=== PATIENT | female | born 1940 | race Caucasian/White ===

== ENCOUNTER 2020-04-08 08:50 | Outpatient (REF) | payer OTHER, SELFPAY ==
[2020-04-08 09:51] LABS: MANUAL DIFF FLAG NO
[2020-04-08 09:54] LABS: Basophils Percent Auto 0.4 % (0-2); Eosinophils Absolute Auto 0.2 X10*3/uL (0.0-0.4); Eosinophils Percent Auto 3.7 % (0-4); Hematocrit 39.6 % (37-47); Hemoglobin 13.1 g/dl (12.0-16.0); Imm Gran Abs Auto 0.01 X10*3/uL (0.00-0.03); Imm Gran Pct Auto 0.2 % (0.0-0.4); Lymphocytes Absolute Auto 1.4 X10*3/uL (1.2-4.9); Mean Corpuscular HGB Conc 33.1 g/dl (31.0-35.0); Mean Corpuscular Hemoglobin 30.1 pg (27.0-33.0); Mean Platelet Volume 10.1 fL (9.4-12.3); Monocytes Absolute Auto 0.4 X10*3/uL (0.1-1.2); Monocytes Percent Auto 8.1 % (2-11); Neutrophils Absolute Auto 3.1 X10*3/uL (2.0-8.3); Neutrophils Percent Auto 60.6 % (45-73); Platelet Count 272 X10*3/uL (160-400); Red Blood Count 4.35 X10*6/uL (4.20-5.50); White Blood Count 5.2 X10*3/uL (4.8-10.8)
[2020-04-08 10:19] LABS: Alanine Aminotransferase 22 U/L (0-31); Alkaline Phosphatase 95 U/L (39-117); Anion Gap 10 (12-20); Aspartate Amino Transferase 21 U/L (5-31); Bilirubin Total 0.3 mg/dL (0.0-1.0); Blood Urea Nitrogen 15 mg/dL (9-16); Calcium 8.8 mg/dL (8.4-10.2); Carbon Dioxide 27 mmol/L (22-29); Chloride 107 mmol/L (96-108); Cholesterol 181 mg/dL; Estimated Glomerular Filt Rate > 60; Glucose Fasting 109 mg/dL (60-99); HDL Cholesterol 47 mg/dL; LDL Cholesterol Calculated 119 mg/dl; Potassium 4.6 mmol/l (3.3-5.1); Sodium 139 mmol/L (135-145); Total Protein 6.2 g/dL (6.5-8.0); Triglycerides 78 mg/dL
[2020-04-08 10:20] LABS: Creatinine Urine 109.04 mg/dL; Microalbum/Creatinine Ratio Ur 12.8 ug/mg cr
[2020-04-08 10:28] LABS: Estimated Average Glucose 111 mg/dL; Hemoglobin A1c % 5.5 %
[2020-04-08 10:38] LABS: Glucose Urine UA NEG (NEG); Leukocyte Esterase Urine NEG (NEG); Nitrite Urine NEG (NEG); Urine Blood TRACE (NEG); Urine Ketones NEG (NEG); Urine Protein NEG (NEG-TRACE)
[2020-04-08 10:43] LABS: Vitamin D 25-OH Total 28.9 ng/mL (>30)
[2020-04-08 10:45] LABS: Appearance Urine CLEAR; Color Urine YELLOW
[2020-04-08 10:58] LABS: Reflex LDLD? No
[2020-04-08 11:11] LABS: RBC Urine 0 /HPF (0); WBC Urine 0 /HPF (0-4)
[2020-04-08 11:12] LABS: Squamous Epithelial Cell Urine TRACE /LPF
[2020-04-08 11:13] LABS: Amorphous Sediment Urine TRACE /LPF
== END 2020-04-08 08:51 | disposition home or self-care (01) ==
LOC: HO.LAB 08:50
PROVIDERS: PCP Internal Medicine; Visit Provider Internal Medicine
DX: Z00.00 Encounter for general adult medical examination without abnormal findings (principal); I10 Essential (primary) hypertension; R73.03 Prediabetes; E78.00 Pure hypercholesterolemia, unspecified; G62.9 Polyneuropathy, unspecified; Z78.0 Asymptomatic menopausal state; Z86.69 Personal history of other diseases of the nervous system and sense organs
CPT/HCPCS: 36415; 80053; 80061; 81001; 81003; 82043; 82306; 83036; 85025

== ENCOUNTER 2020-05-20 13:15 | Outpatient (REF) | payer SELFPAY | END 2020-05-20 13:16 | disposition home or self-care (01) | LOC: HO.HAP 13:15 | PROVIDERS: PCP Internal Medicine; Referring Provider Internal Medicine; Visit Provider Internal Medicine | DX: Z13.89 Encounter for screening for other disorder (principal) | CPT/HCPCS: 92700 ==

== ENCOUNTER 2020-07-30 11:26 | Outpatient (REF) | payer OTHER, SELFPAY ==
--- NOTE | 2020-07-30 | MM_ITS ---
EXAMINATION: MM SCREENING DIGITAL BREAST TOMOSYNTHESIS, BILATERAL CLINICAL INFORMATION: Screening. Asymptomatic. The lifetime risk of breast cancer based on the Tyrer-Cuzick Model is 1%. COMPARISON: Mammography: 07/25/2019, 07/12/2018, 06/18/2017 TECHNIQUE: Digital breast tomosynthesis is performed in both the craniocaudal and mediolateral oblique views along with computer-aided detection (CAD). Synthesized 2D images are generated from the tomosynthesis. Additional right MLO view is provided. FINDINGS: There are scattered areas of fibroglandular density (ACR BI-RADS breast composition Category b). There are no significant masses, abnormal calcifications, or other abnormalities. There is fibronodular parenchymal pattern similar to prior studies. No developing density. No interval dominant nodularity. Again, there are scattered bilateral calcifications, both punctate and coarse, similar in number and distribution. There are 2 biopsy clip markers left breast and a biopsy clip marker right breast upper outer quadrant. MM/MM tomosynthesis screening BI IMPRESSION: No significant changes from prior exams. ASSESSMENT: BI-RADS 2: Benign RECOMMENDATION: Routine annual mammography screening. This patient's information was entered into a reminder system with a target due date for their next mammogram.
== END 2020-07-30 11:27 | disposition home or self-care (01) ==
LOC: HO.MAMMO 11:26
PROVIDERS: Visit Provider Internal Medicine
DX: Z12.31 Encounter for screening mammogram for malignant neoplasm of breast (principal)
CPT/HCPCS: 77063; 77067

== ENCOUNTER 2020-10-04 10:23 | Outpatient (REF) | payer OTHER, SELFPAY ==
[2020-10-04 11:17] LABS: Estimated Average Glucose 108 mg/dL; Hemoglobin A1c % 5.4 %
[2020-10-04 12:14] LABS: Alanine Aminotransferase 30 U/L (0-31); Alkaline Phosphatase 105 U/L (39-117); Aspartate Amino Transferase 21 U/L (5-31); Bilirubin Direct < 0.2 mg/dL (0.0-0.5); Bilirubin Total < 0.2 mg/dL (0.0-1.0); Cholesterol 190 mg/dL; Glucose Fasting 101 mg/dL (60-99); HDL Cholesterol 49 mg/dL; LDL Cholesterol Calculated 121 mg/dl; Total Protein 6.4 g/dL (6.5-8.0); Triglycerides 102 mg/dL
[2020-10-04 12:52] LABS: Reflex LDLD? No
== END 2020-10-04 10:24 | disposition home or self-care (01) ==
LOC: HO.LNP 10:23
PROVIDERS: Visit Provider Internal Medicine
DX: E78.00 Pure hypercholesterolemia, unspecified (principal); R73.09 Other abnormal glucose
CPT/HCPCS: 80061; 80076; 82947; 83036

== ENCOUNTER 2021-04-21 10:21 | Outpatient (REF) | payer OTHER, SELFPAY ==
[2021-04-21 10:26] LABS: MANUAL DIFF FLAG NO
[2021-04-21 11:07] LABS: Basophils Percent Auto 0.5 % (0-2); Eosinophils Absolute Auto 0.1 X10*3/uL (0.0-0.4); Eosinophils Percent Auto 2.1 % (0-4); Hematocrit 39.2 % (37-47); Imm Gran Abs Auto 0.02 X10*3/uL (0.00-0.03); Imm Gran Pct Auto 0.3 % (0.0-0.4); Lymphocytes Percent Auto 29.9 % (20-40); Mean Corpuscular HGB Conc 33.2 g/dl (31.0-35.0); Mean Corpuscular Hemoglobin 29.3 pg (27.0-33.0); Mean Corpuscular Volume 88.3 fL (80-98); Mean Platelet Volume 9.9 fL (9.4-12.3); Monocytes Absolute Auto 0.6 X10*3/uL (0.1-1.2); Monocytes Percent Auto 8.9 % (2-11); Neutrophils Absolute Auto 3.8 X10*3/uL (2.0-8.3); Neutrophils Percent Auto 58.3 % (45-73); Platelet Count 364 X10*3/uL (160-400); Red Blood Count 4.44 X10*6/uL (4.20-5.50); Red Cell Distribution Width 13.1 % (11.0-16.0); White Blood Count 6.6 X10*3/uL (4.8-10.8)
[2021-04-21 11:26] LABS: Appearance Urine HAZY; Color Urine YELLOW; Glucose Urine UA NEG (NEG); Leukocyte Esterase Urine NEG (NEG); Nitrite Urine NEG (NEG); PH 6.5 (5.0-8.0); Urine Blood 1+ (NEG); Urine Ketones NEG (NEG); Urine Protein TRACE MG/DL (NEG-TRACE)
[2021-04-21 11:32] LABS: Estimated Average Glucose 111 mg/dL; Hemoglobin A1c % 5.5 %
[2021-04-21 11:42] LABS: Alanine Aminotransferase 20 U/L (0-31); Alkaline Phosphatase 93 U/L (39-117); Anion Gap 10 (12-20); Aspartate Amino Transferase 20 U/L (5-31); Bilirubin Total 0.3 mg/dL (0.0-1.0); Blood Urea Nitrogen 13 mg/dL (9-16); Calcium 9.3 mg/dL (8.4-10.2); Carbon Dioxide 25 mmol/L (22-29); Chloride 106 mmol/L (96-108); Cholesterol 202 mg/dL; Estimated Glomerular Filt Rate > 60; Glucose Fasting 105 mg/dL (60-99); HDL Cholesterol 51 mg/dL; LDL Cholesterol Calculated 129 mg/dl; Potassium 4.4 mmol/L (3.3-5.1); Sodium 137 mmol/L (135-145); Total Protein 6.7 g/dL (6.5-8.0); Triglycerides 113 mg/dL
[2021-04-21 11:59] LABS: Creatinine Urine 183.95 mg/dL; Microalbum/Creatinine Ratio Ur 37.5 ug/mg cr
[2021-04-21 12:32] LABS: Reflex LDLD? No
[2021-04-21 13:12] LABS: Mucus Urine 2+ /LPF; RBC Urine 0-2 /HPF (0); Renal Epithelial Cells Urine 2+ /LPF; Squamous Epithelial Cell Urine 1+ /LPF
[2021-04-21 13:13] LABS: Hyaline Casts Urine 0-2 /LPF; Oval Fat Bodies Urine NOTED
== END 2021-04-21 10:22 | disposition home or self-care (01) ==
LOC: HO.LNP 10:21
PROVIDERS: Visit Provider Internal Medicine
DX: Z00.00 Encounter for general adult medical examination without abnormal findings (principal); I10 Essential (primary) hypertension; E11.43 Type 2 diabetes mellitus with diabetic autonomic (poly)neuropathy; E78.00 Pure hypercholesterolemia, unspecified
CPT/HCPCS: 80053; 80061; 81001; 81003; 82043; 83036; 85025

== ENCOUNTER 2021-05-23 10:10 | Outpatient (REF) | payer OTHER, SELFPAY ==
[2021-05-23 10:54] LABS: Appearance Urine CLEAR; Color Urine YELLOW; Glucose Urine UA NEG (NEG); Leukocyte Esterase Urine NEG (NEG); Nitrite Urine NEG (NEG); Urine Blood TRACE (NEG); Urine Ketones NEG (NEG); Urine Protein NEG (NEG-TRACE)
[2021-05-23 11:11] LABS: Squamous Epithelial Cell Urine 1+ /LPF
[2021-05-23 11:12] LABS: RBC Urine 0-2 /HPF (0); WBC Urine 0 /HPF (0-4)
== END 2021-05-23 10:11 | disposition home or self-care (01) ==
LOC: HO.LNP 10:10
PROVIDERS: Visit Provider Internal Medicine
DX: N02.9 Recurrent and persistent hematuria with unspecified morphologic changes (principal)
CPT/HCPCS: 81001

== ENCOUNTER 2021-08-11 14:21 | Outpatient (REF) | payer OTHER, SELFPAY ==
--- NOTE | ~2021-08-11 | MM_ITS ---
EXAMINATION: MM SCREENING DIGITAL BREAST TOMOSYNTHESIS, BILATERAL CLINICAL INFORMATION: Screening. Asymptomatic. The lifetime risk of breast cancer based on the Tyrer-Cuzick Model is under 3%. COMPARISON: Mammography: 07/30/2020, 07/25/2019, 07/12/2018 TECHNIQUE: Digital breast tomosynthesis is performed in both the craniocaudal and mediolateral oblique views along with computer-aided detection (CAD). Synthesized 2D images are generated from the tomosynthesis. FINDINGS: There are scattered areas of fibroglandular density (ACR BI-RADS breast composition Category b). Breast tissue composition borders on heterogeneously dense. There are scattered stable parenchymal asymmetries and fibronodular changes similar to prior exams. There is no developing density or interval mass or architectural abnormality. Again, scattered bilateral calcifications are present similar in number and distribution. There is a biopsy clip marker again seen mid 12:00 left breast and mid upper outer right breast. The axilla are unremarkable. No significant changes. MM/MM tomosynthesis screening BI IMPRESSION: No mammographic evidence of malignancy. ASSESSMENT: BI-RADS 2: Benign RECOMMENDATION: Routine annual mammography screening. This patient's information was entered into a reminder system with a target due date for their next mammogram.
== END 2021-08-11 14:22 | disposition home or self-care (01) ==
LOC: HO.MAMMO 14:21
PROVIDERS: PCP Internal Medicine; Visit Provider Internal Medicine
DX: Z12.31 Encounter for screening mammogram for malignant neoplasm of breast (principal)
CPT/HCPCS: 77063; 77067

== ENCOUNTER 2021-10-24 10:33 | Outpatient (REF) | payer OTHER, SELFPAY ==
[2021-10-24 11:15] LABS: Alanine Aminotransferase 21 U/L (0-31); Albumin Level 3.9 g/dL (3.5-5.0); Alkaline Phosphatase 104 U/L (39-117); Aspartate Amino Transferase 21 U/L (5-31); Bilirubin Direct < 0.2 mg/dL (0.0-0.5); Bilirubin Total 0.5 mg/dL (0.0-1.0); Cholesterol 192 mg/dL; Glucose Fasting 102 mg/dL (60-99); HDL Cholesterol 53 mg/dL; LDL Cholesterol Calculated 119 mg/dl; Total Protein 6.3 g/dL (6.5-8.0); Triglycerides 101 mg/dL
[2021-10-24 11:21] LABS: Estimated Average Glucose 111 mg/dL; Hemoglobin A1c % 5.5 %
== END 2021-10-24 10:34 | disposition home or self-care (01) ==
LOC: HO.LNP 10:33
PROVIDERS: Visit Provider Internal Medicine
DX: E78.00 Pure hypercholesterolemia, unspecified (principal); R73.03 Prediabetes
CPT/HCPCS: 80061; 80076; 82947; 83036

== ENCOUNTER 2022-04-23 10:50 | Outpatient (REF) | payer OTHER, SELFPAY ==
[2022-04-23 10:54] LABS: MANUAL DIFF FLAG NO
[2022-04-23 11:53] LABS: Hematocrit 38.7 % (37.0-47.0); Hemoglobin 12.8 g/dl (12.0-16.0); Mean Corpuscular HGB Conc 33.1 g/dl (31.0-35.0); Mean Corpuscular Hemoglobin 29.3 pg (27.0-33.0); Mean Corpuscular Volume 88.6 fL (80.0-98.0); Platelet Count 341 X10*3/uL (160-400); Red Blood Count 4.37 X10*6/uL (4.20-5.50); Red Cell Distribution Width 13.2 % (11.0-16.0); White Blood Count 5.4 X10*3/uL (4.8-10.8)
[2022-04-23 11:54] LABS: Basophils Percent Auto 0.6 % (0-2); Eosinophils Absolute Auto 0.1 X10*3/uL (0.0-0.4); Eosinophils Percent Auto 2.4 % (0-4); Imm Gran Abs Auto 0.03 X10*3/uL (0.00-0.03); Imm Gran Pct Auto 0.6 % (0.0-0.4); Lymphocytes Absolute Auto 1.8 X10*3/uL (1.2-4.9); Lymphocytes Percent Auto 32.9 % (20-40); Monocytes Absolute Auto 0.4 X10*3/uL (0.1-1.2); Neutrophils Percent Auto 55.5 % (45-73)
[2022-04-23 12:06] LABS: Alanine Aminotransferase 23 U/L (0-31); Alkaline Phosphatase 97 U/L (39-117); Anion Gap 13 (12-20); Aspartate Amino Transferase 20 U/L (5-31); Bilirubin Total 0.4 mg/dL (0.0-1.0); Blood Urea Nitrogen 14 mg/dL (9-16); Carbon Dioxide 27 mmol/L (22-29); Chloride 101 mmol/L (96-108); Cholesterol 185 mg/dL; Estimated Glomerular Filt Rate > 60; Glucose Fasting 101 mg/dL (60-99); HDL Cholesterol 45 mg/dL; LDL Cholesterol Calculated 121 mg/dl; Potassium 4.1 mmol/L (3.3-5.1); Sodium 137 mmol/L (135-145); Total Protein 6.4 g/dL (6.5-8.0); Triglycerides 97 mg/dL
[2022-04-23 12:20] LABS: Creatinine Urine 67.11 mg/dL; Microalbum/Creatinine Ratio Ur 13.4 ug/mg cr
[2022-04-23 12:24] LABS: Estimated Average Glucose 120 mg/dL; Hemoglobin A1c % 5.8 %
[2022-04-23 13:20] LABS: Appearance Urine Cloudy; Color Urine Yellow; Glucose Urine UA Negative (Negative); Leukocyte Esterase Urine Large (3+) (Negative); Nitrite Urine Negative (Negative); PH 6.5 (5.0-9.0); UMIC TRIGGER UA YES; Urine Blood Small (1+) (Negative); Urine Ketones Negative (Negative); Urine Protein Negative (Neg-Trace)
[2022-04-23 13:44] LABS: Bacteria Urine None Seen (None Seen); Hyaline Casts Urine 0-2 /LPF (0-2); WBC Urine >50 /HPF (0-5)
== END 2022-04-23 10:51 | disposition home or self-care (01) ==
LOC: HO.LNP 10:50
PROVIDERS: Visit Provider Internal Medicine
DX: Z00.00 Encounter for general adult medical examination without abnormal findings (principal); I10 Essential (primary) hypertension; R73.09 Other abnormal glucose; E78.00 Pure hypercholesterolemia, unspecified
CPT/HCPCS: 80053; 80061; 81001; 82043; 83036; 85025

== ENCOUNTER 2022-05-21 10:43 | Outpatient (REF) | payer OTHER, SELFPAY ==
[2022-05-21 11:13] LABS: Appearance Urine Clear; Color Urine Yellow; Glucose Urine UA Negative (Negative); Leukocyte Esterase Urine Trace (Negative); Nitrite Urine Negative (Negative); PH 6.5 (5.0-9.0); UMIC TRIGGER UA YES; Urine Blood Trace (Negative); Urine Ketones Negative (Negative); Urine Protein Negative (Neg-Trace)
[2022-05-21 11:19] LABS: Bacteria Urine None Seen (None Seen); Hyaline Casts Urine 0-2 /LPF (0-2); RBC Urine 0-2 /HPF (0-2); WBC Urine 0-5 /HPF (0-5)
== END 2022-05-21 10:44 | disposition home or self-care (01) ==
LOC: HO.LNP 10:43
PROVIDERS: Visit Provider Internal Medicine
DX: R31.9 Hematuria, unspecified (principal)
CPT/HCPCS: 81001

== ENCOUNTER 2022-08-26 11:18 | Outpatient (REF) | payer OTHER, SELFPAY ==
--- NOTE | ~2022-08-26 | MM_ITS ---
EXAMINATION: MM SCREENING DIGITAL BREAST TOMOSYNTHESIS, BILATERAL CLINICAL INFORMATION: Screening. Asymptomatic. Family history breast cancer, mother. COMPARISON: Mammography: 08/11/2021, 07/30/2020, 07/25/2019 TECHNIQUE: Digital breast tomosynthesis is performed in both the craniocaudal and mediolateral oblique views along with computer-aided detection (CAD). Synthesized 2D images are generated from the tomosynthesis. Additional right CC view is provided. FINDINGS: There are scattered areas of fibroglandular density (ACR BI-RADS breast composition Category b). Breast tissue composition borders on heterogeneously dense. There is a stable fibronodular parenchymal pattern without developing density or architectural abnormality. Again, there are scattered bilateral round and benign round calcifications. There are no significant masses, abnormal calcifications, or other abnormalities. There is a biopsy clip marker central anterior left breast and mid upper outer quadrant right breast. The axilla and skin contours are unremarkable. MM/MM tomosynthesis screening BI IMPRESSION: No mammographic evidence of malignancy. ASSESSMENT: BI-RADS 2: Benign RECOMMENDATION: Routine annual mammography screening. This patient's information was entered into a reminder system with a target due date for their next mammogram.
== END 2022-08-26 11:19 | disposition home or self-care (01) ==
LOC: HO.MAMMO 11:18
PROVIDERS: PCP Internal Medicine; Visit Provider Internal Medicine
DX: Z12.31 Encounter for screening mammogram for malignant neoplasm of breast (principal)
CPT/HCPCS: 77063; 77067

== ENCOUNTER 2022-10-26 10:44 | Outpatient (REF) | payer OTHER, SELFPAY ==
[2022-10-26 11:03] LABS: Alanine Aminotransferase 22 U/L (0-31); Alkaline Phosphatase 112 U/L (39-117); Aspartate Amino Transferase 19 U/L (5-31); Bilirubin Direct 0.1 mg/dL (0.0-0.5); Bilirubin Total 0.4 mg/dL (0.0-1.0); Cholesterol 185 mg/dL; Glucose Fasting 107 mg/dL (60-99); HDL Cholesterol 52 mg/dL; LDL Cholesterol Calculated 118 mg/dl; Total Protein 6.1 g/dL (6.5-8.0); Triglycerides 79 mg/dL
[2022-10-26 11:20] LABS: Estimated Average Glucose 111 mg/dL; Hemoglobin A1c % 5.5 %
[2022-10-26 13:03] LABS: Reflex LDLD? No
== END 2022-10-26 10:45 | disposition home or self-care (01) ==
LOC: HO.LNP 10:44
PROVIDERS: Visit Provider Internal Medicine
DX: R73.03 Prediabetes (principal); E78.00 Pure hypercholesterolemia, unspecified
CPT/HCPCS: 80061; 80076; 82947; 83036

== ENCOUNTER → 2022-11-24 08:50 | Outpatient (REF) | payer OTHER, SELFPAY ==
--- NOTE | 2022-11-24 08:56 | CA_ITS ---
Acquisition Time: 2022-11-24 09:07:38 Total Exercise Time: 00:03:36 Test Indications: SOB Medications: SEE H Protocol: MICK Max HR: 114 BPM 83% of Pred: 136 BPM Max BP: 172/072 mmHG Max Work Load: 4.6 METS Exercise stress test exercise 3 min 36 sec of Mick protocol stage 1 achieiving 83% MPHR with request to stop due to fatigue, with moderate SOB, no chest discomfort, without arrythmia, with normotensive response to exercise, without EKG changes at achieved workload. Test reviewed with Dr. Bob. Referred By: Vito Joel Overread By: HEIDI SOTELO
== END ==
LOC: HO.CARD 08:50
PROVIDERS: Visit Provider Internal Medicine
DX: R06.02 Shortness of breath (principal)
CPT/HCPCS: 93017

== ENCOUNTER 2023-07-02 10:23 | Outpatient (REF) | payer OTHER, SELFPAY ==
[2023-07-02 10:26] LABS: MANUAL DIFF FLAG NO
[2023-07-02 10:56] LABS: Appearance Urine Clear; Color Urine Yellow; Glucose Urine UA Negative (Negative); Leukocyte Esterase Urine Trace (Negative); Nitrite Urine Negative (Negative); PH 6.5 (5.0-9.0); Specific Gravity - Urine 1.015 (1.005-1.025); UMIC TRIGGER UACC YES; Urine Blood Trace (Negative); Urine Ketones Negative (Negative); Urine Protein Negative (Neg-Trace)
[2023-07-02 11:00] LABS: Bacteria Urine Trace (None Seen); Hyaline Casts Urine 0-2 /LPF (0-2); Squamous Epithelial Cell Urine 0-2 /HPF (0-2); WBC Urine 0-5 /HPF (0-5)
[2023-07-02 11:08] LABS: Basophils Percent Auto 0.6 % (0-2); Eosinophils Absolute Auto 0.2 X10*3/uL (0.0-0.4); Eosinophils Percent Auto 2.5 % (0-4); Hematocrit 39.2 % (37.0-47.0); Hemoglobin 13.1 g/dl (12.0-16.0); Imm Gran Abs Auto 0.03 X10*3/uL (0.00-0.03); Imm Gran Pct Auto 0.5 % (0.0-0.4); Lymphocytes Absolute Auto 1.6 X10*3/uL (1.2-4.9); Lymphocytes Percent Auto 24.7 % (20-40); Mean Corpuscular HGB Conc 33.4 g/dl (31.0-35.0); Mean Corpuscular Hemoglobin 29.2 pg (27.0-33.0); Mean Corpuscular Volume 87.3 fL (80.0-98.0); Monocytes Absolute Auto 0.6 X10*3/uL (0.1-1.2); Monocytes Percent Auto 9.5 % (2-11); Neutrophils Absolute Auto 4.1 x10*3/uL (2.0-8.3); Neutrophils Percent Auto 62.2 % (45-73); Platelet Count 304 X10*3/uL (160-400); Red Blood Count 4.49 X10*6/uL (4.20-5.50); Red Cell Distribution Width 13.2 % (11.0-16.0); White Blood Count 6.5 X10*3/uL (4.8-10.8)
[2023-07-02 12:09] LABS: Microalbum/Creatinine Ratio Ur 14.3 ug/mg cr (<30)
[2023-07-02 12:17] LABS: Alanine Aminotransferase 19 U/L (0-31); Albumin Level 3.8 g/dL (3.5-5.0); Alkaline Phosphatase 99 U/L (39-117); Anion Gap 13 (12-20); Aspartate Amino Transferase 20 U/L (5-31); Bilirubin Total 0.4 mg/dL (0.0-1.0); Blood Urea Nitrogen 11 mg/dL (9-16); Carbon Dioxide 24 mmol/L (22-29); Chloride 101 mmol/L (96-108); Cholesterol 177 mg/dL (<200); Estimated Glomerular Filt Rate > 60; Glucose Fasting 83 mg/dL (60-99); HDL Cholesterol 55 mg/dL (>40); LDL Cholesterol Calculated 107 mg/dL (<100); Potassium 3.7 mmol/L (3.3-5.1); Sodium 134 mmol/L (135-145); Total Protein 6.3 g/dL (6.5-8.0); Triglycerides 78 mg/dL (<150)
== END 2023-07-02 10:24 | disposition home or self-care (01) ==
LOC: HO.LNP 10:23
PROVIDERS: Visit Provider Internal Medicine
DX: Z00.00 Encounter for general adult medical examination without abnormal findings (principal); I10 Essential (primary) hypertension; E78.00 Pure hypercholesterolemia, unspecified; R73.03 Prediabetes
CPT/HCPCS: 80053; 80061; 81001; 82043; 82570; 85025

== ENCOUNTER 2023-08-18 10:00 | Outpatient (REF) | payer OTHER, SELFPAY ==
[2023-08-18 16:21] LABS: Urine Cytology See Pathology rpt
== END 2023-08-18 10:01 | disposition home or self-care (01) ==
LOC: HO.LAB 10:00
PROVIDERS: PCP Internal Medicine; Visit Provider Nurse Practitioner Family
DX: R31.29 Other microscopic hematuria (principal); N39.0 Urinary tract infection, site not specified
CPT/HCPCS: 81003; 87086; 87088; 87186; 88112

== ENCOUNTER 2023-08-18 10:00 | Outpatient (AMB) | payer OTHER, MEDICAID, SELFPAY ==
--- NOTE | 2023-08-18 10:15 | MHC.OFFVIS ---
Intake Intake Visit Reasons: microscopic hematuria Intake Note: New Patient presents for initial follow up Micro hematuria Urology Medications: none Blood Thinner: aspirin Smoker: No Patient stated she has not seen visible blood in the urine, and has no pain when she urinates Vegetable Grower Required: No Accompanied by: Self / Same As Patient Allergies No Known Allergies Allergy (Verified 08/18/23 13:29) Medication List - Last Reconciled 08/18/23 by MARQUIS Juares aspirin 81 mg PO DAILY atorvastatin 80 mg PO DAILY carbamazepine 200 mg PO BID lisinopril-hydrochlorothiazide 10-12.5 mg 1 tab PO DAILY HPI HPI Comments History of Present Illness Details See is a very pleasant 83-year-old female patient of Dr. Joel. She has a past medical history of autonomic neuropathy due to diabetes, seizure disorder, intermittent spinal claudication, neuropathy, hypercholesteremia, hypertension, and endometrial cancer. She presents to the office today as a new patient for microscopic hematuria. In discussion with the patient today she reports to be doing and feeling well. She reports having followed up with her PCP at which time urinalysis showed microscopic hematuria on 2 occasions and recommendations were made for Urology follow-up for further assessment evaluation. In discussion with the patient today she denies any bothersome urinary issues or concerns. She denies urinary urgency, urinary frequency, incontinence, nocturia, hematuria, dysuria, foul smelling urine, changes to urinary stream, flank pain, fever, and or chills. She is happy with her current voiding parameters. When asked she denies any previous nicotine dependence and or workplace chemical exposure. In office urinalysis with 3+ leukocytes and microscopic hematuria noted. Again, she denies any UTI like symptoms or urinary issues at this time. Discussed at length potential causes of microscopic hematuria. Discussed further workup with imaging, urine cytology, and in office cystoscopy. She otherwise denies any other issues or concerns at this time. [facility] Medical History Autonomic neuropathy due to type 2 diabetes mellitus History of seizure disorder Intermittent spinal claudication Neuropathy Localization-related (focal) (partial) symptomatic epilepsy and epileptic syndromes with simple partial seizures, not intractable, without status epilepticus Hypercholesteremia Essential hypertension Endometrial cancer Surgical History History of hysterectomy with bilateral oophorectomy Review of Systems Const Reports no additional complaints Eyes Reports no additional complaints ENT Reports no additional complaints Card Reports as per [facility] Resp Reports no additional complaints GI Reports no additional complaints Reports as per [facility] Musc Reports as per [facility] Neuro Reports as per HPI Psych Reports no additional complaints Endo Reports as per HPI Matt/Lymph Reports no additional complaints Aller/Immun Reports no additional complaints Physical Exam Const General: cooperative, comfortable, no acute distress, well developed, alert and awake Orientation/consciousness: patient oriented x3 Limitations: no limitations HEENT Head: Yes normal to inspection, Yes normocephalic and Yes atraumatic Ears: hearing grossly normal bilaterally Eyes General: appearance normal, both eyes and all related structures Neck Neck: Yes normal visual inspection and Yes trachea midline Chest Chest palpation & inspection: normal inspection of the chest Resp Effort & Inspection: normal respiratory effort and able to speak in complete sentences Cardio Rate: regular rate GI Inspection: Yes normal to inspection General: Yes no CVA tenderness Back/Spine/Pelvis Back: no CVA tenderness Skin General skin exam: no rashes or lesions noted Neuro General: patient oriented x3 Extrem General: Yes normal to inspection Psych Appearance: grossly normal and well kempt Mental Status: mental status grossly normal Speech and movement: Normal speech and movement present and Clear speech present Affect: normal affect Attitude: cooperative Thought process: Normal thought process present Thought content: Normal thought content present Insight: Fair insight present (Psych) Judgement: Fair judgement present (Psych) Results AMB Urinalysis, Automated UA Leukoctes 500 Gabriel/uL Last Edit by Irina Hoang CMA on 08/18/23 10:23 UA Nitrite Negative Last Edit by Irina Hoang CMA on 08/18/23 10:23 UA Urobilinogen 0.2 mg/dL Last Edit by Irina Hoang CMA on 08/18/23 10:23 UA Protein 30 mg/dL Last Edit by Irina Hoang CMA on 08/18/23 10:23 UA pH 6.5 Last Edit by Irina Hoang CMA on 08/18/23 10:23 UA Blood 80 Kristopher/uL Last Edit by Irina Hoang CMA on 08/18/23 10:23 UA Specific [place] 1.020 Last Edit by Irina Hoang CMA on 08/18/23 10:23 UA Ketone Negative Last Edit by Irina Hoang CMA on 08/18/23 10:23 UA Bilirubin 0 mg/dL Last Edit by Irina Hoang CMA on 08/18/23 10:23 UA Glucose 0 mg/dL Last Edit by Irina Hoang CMA on 08/18/23 10:23 Results Reviewed Results Reviewed: Laboratory Last Values Urine pH (Auto) 6.5 08/18/23 10:21 Specific [place] (Auto) 1.020 08/18/23 10:21 Urine Protein (Auto) 30 mg/dL 08/18/23 10:21 Glucose (UA)(Auto) 0 mg/dL 08/18/23 10:21 Urine Ketones (Auto) Negative 08/18/23 10:21 Urine Blood (Auto) 80 Kristopher/uL 08/18/23 10:21 Urine Nitrite (Auto) Negative 08/18/23 10:21 Urine Bilirubin (Auto) 0 mg/dL 08/18/23 10:21 Urine Urobilinogen (Auto) 0.2 mg/dL 08/18/23 10:21 Leukocyte Esterase (Auto) 500 Gabriel/uL 08/18/23 10:21 Assessment & Plan Assessment & Plan (1) Urinary tract infection: Code(s): N39.0 - Urinary tract infection, site not specified (2) Microscopic hematuria: Code(s): R31.29 - Other microscopic hematuria Plan In office urinalysis results reviewed with the patient today; as noted above; will send for urine culture and urine cytology. Will await culture results for possible treatment Discussed at length potential causes of microscopic hematuria. Discussed further microscopic hematuria workup with cytology, imaging, and in office cystoscopy versus surveillance monitoring; discussed risks and benefits of these treatment options Will obtain retroperitoneal ultrasound for further assessment evaluation. Patient currently denies any bothersome urinary issues or concerns. She reports be happy with current voiding parameters. Follow-up in 2-3 months with imaging to be completed prior; or sooner with any issues, concerns, and or questions Orders: Orders Urine Culture Today R31.29 - Other microscopic hematuria AMB Urinalysis Automated Today R33.9 - Retention of urine, unspecified Urine Cytology Today N39.0 - Urinary tract infection, site not specified, R31.29 - Other microscopic hematuria US retroperitoneal comp Today N39.0 - Urinary tract infection, site not specified, R31.29 - Other microscopic hematuria Patient Instructions: The patient had an opportunity to ask questions regarding the treatment plan. All questions were answered. Physical exam, labs, and imaging were discussed and reviewed in detail. As well as risks, benefits, and discussion of treatment choices. No major barriers to understanding were identified. The patient expressed understanding and agreement with the above treatment plan. The patient was made aware they should contact our office by phone for worsening of their current condition, the appearance of new symptoms, or with any questions or concerns. Compliance is encouraged with any medications and follow up testing that is ordered. It is a privilege to be allowed the opportunity to participate in? your urological care.? Again, if you have any questions or concerns If you have any questions or concerns please do not hesitate to contact me. The office is [phone]. This note is constructed using voice recognition software. While every effort has been made to ensure accuracy net application support specialist errors may have been included. Yours sincerely, MARQUIS Juares Coding Level of Care Code New Pt Level 3 (90624) Diagnoses Urinary tract infection N39.0 Microscopic hematuria R31.29
== END 2023-08-18 11:08 | disposition home or self-care (01) ==
PROVIDERS: PCP Internal Medicine; Visit Provider Nurse Practitioner Family
DX: N39.0 Urinary tract infection, site not specified (principal); R31.29 Other microscopic hematuria
CPT/HCPCS: 99203

== ENCOUNTER 2023-09-01 11:29 | Outpatient (REF) | payer OTHER, SELFPAY ==
--- NOTE | ~2023-09-01 | MM_ITS ---
EXAMINATION: MM SCREENING DIGITAL BREAST TOMOSYNTHESIS, BILATERAL CLINICAL INFORMATION: Screening. Asymptomatic. COMPARISON: Mammography: This study is compared with prior exams dating back to 2019. TECHNIQUE: Digital breast tomosynthesis is performed in both the craniocaudal and mediolateral oblique views along with computer-aided detection (CAD). Synthesized 2D images are generated from the tomosynthesis. FINDINGS: The breasts are heterogeneously dense, which may obscure small masses (ACR BI-RADS breast composition Category c). There are no significant masses, abnormal calcifications, or other abnormalities. There is tissue marker present in the left breast from prior benign percutaneous biopsy. There are benign calcifications scattered throughout each breast. MM/MM tomosynthesis screening BI IMPRESSION: No mammographic evidence of malignancy. ASSESSMENT: BI-RADS BI-RADS 2 - Benign Findings RECOMMENDATION: Routine annual mammography screening. 1 year F/U This examination should not preclude the clinical evaluation of a suspicious palpable abnormality. This patient's information was entered into a reminder system with a target due date for their next mammogram.
== END 2023-09-01 11:30 | disposition home or self-care (01) ==
LOC: HO.MAMMO 11:29
PROVIDERS: PCP Internal Medicine; Visit Provider Internal Medicine
DX: Z12.31 Encounter for screening mammogram for malignant neoplasm of breast (principal)
CPT/HCPCS: 77063; 77067

== ENCOUNTER → 2023-09-01 11:30 | Outpatient (BNV) | payer OTHER, SELFPAY | PROVIDERS: PCP Internal Medicine; Visit Provider Radiology Diagnostic Radiology | DX: Z12.31 Encounter for screening mammogram for malignant neoplasm of breast (principal) | CPT/HCPCS: 77063; 77067 ==

== ENCOUNTER 2023-09-22 09:53 | Outpatient (REF) | payer OTHER, SELFPAY ==
--- NOTE | ~2023-09-22 | US_ITS ---
EXAMINATION: US RETROPERITONEAL COMPLETE (RENAL) CLINICAL INFORMATION: Other microscopic hematuria. COMPARISON: None available. TECHNIQUE: Real-time imaging of the kidneys and bladder. FINDINGS: RIGHT KIDNEY: 11.0 x 4.1 x 5.4 cm (SAG x AP x TRV). The kidney is normal in size, contour, and echogenicity. Renal cortical thickness is normal. No renal calculi or hydronephrosis. Simple appearing 9 mm midpole cyst for which no follow-up imaging is usually warranted. LEFT KIDNEY: 9.6 x 5.4 x 4.5 cm (SAG x AP x TRV). The kidney is normal in size, contour, and echogenicity. Renal cortical thickness is normal. No renal calculi or hydronephrosis. Simple appearing 5 mm midpole cyst for which no follow-up imaging is usually warranted. BLADDER: Well distended and normal. Bilateral ureteral jets are demonstrated. Prevoid bladder volume is 100 mL. There is no postvoid bladder residual identified. US/US retroperitoneal comp IMPRESSION: No renal calculi or hydronephrosis of either kidney.
== END 2023-09-22 09:54 | disposition home or self-care (01) ==
LOC: HO.US 09:53
PROVIDERS: PCP Internal Medicine; Visit Provider Nurse Practitioner Family
DX: R31.29 Other microscopic hematuria (principal); N39.0 Urinary tract infection, site not specified
CPT/HCPCS: 76770

== ENCOUNTER 2023-10-08 10:24 | Outpatient (AMB) | payer OTHER, SELFPAY ==
--- NOTE | 2023-10-08 10:33 | MHC.OFFVIS ---
Intake Intake Visit Reasons: 3m/US(set) Intake Note: Patient presents today for follow up Micro hematuria Urology Medications: none Blood Thinner: aspirin Smoker: No Lane Marker Installer Required: No Accompanied by: Self / Same As Patient Allergies No Known Allergies Allergy (Verified 10/08/23 11:59) Medication List - Last Reconciled 10/08/23 by MARQUIS Juares aspirin 81 mg PO DAILY atorvastatin 80 mg PO DAILY carbamazepine 200 mg PO BID lisinopril-hydrochlorothiazide 10-12.5 mg 1 tab PO DAILY HPI HPI Comments History of Present Illness Details See is a very pleasant 83-year-old female patient of Dr. Joel. She has a past medical history of autonomic neuropathy due to diabetes, seizure disorder, intermittent spinal claudication, neuropathy, hypercholesteremia, hypertension, and endometrial cancer. She presents to the office today for follow-up. Of note, patient was seen approximately 6 weeks ago as a new patient for microscopic hematuria at which time her in office urinalysis noted 3+ leukocytes therefore was sent for further culture. Culture results grew E coli. In discussion with the patient today she reports having completed Bactrim therapy as prescribed. She currently denies any bothersome urinary issues or concerns. Recent retroperitoneal ultrasound results reviewed with the patient today. Bilateral kidneys with no calculi or hydronephrosis. Simple appearing bilateral renal cysts are notice which require no additional follow-up imaging per radiology report. The bladder is distended and normal. Bilateral ureteral jets are demonstrated. Pre void bladder volume is approximately 100 mL. Postvoid bladder volume is 0. Urine cytology obtained at last office visit due to microscopic hematuria these results were reviewed with the patient today. 08/28 Negative for high-grade urothelial carcinoma. In discussion with the patient today she denies any bothersome urinary issues or concerns. She denies urinary urgency, urinary frequency, incontinence, nocturia, hematuria, dysuria, foul smelling urine, changes to urinary stream, flank pain, fever, and or chills. She is happy with her current voiding parameters. When asked she denies any previous nicotine dependence and or workplace chemical exposure. Discussed at length potential causes of microscopic hematuria. Discussed further workup with in office cystoscopy. She otherwise denies any other issues or concerns at this time. [facility] Medical History Autonomic neuropathy due to type 2 diabetes mellitus History of seizure disorder Intermittent spinal claudication Neuropathy Localization-related (focal) (partial) symptomatic epilepsy and epileptic syndromes with simple partial seizures, not intractable, without status epilepticus Hypercholesteremia Essential hypertension Endometrial cancer Surgical History History of hysterectomy with bilateral oophorectomy Review of Systems Const Reports no additional complaints Eyes Reports no additional complaints ENT Reports no additional complaints Card Reports as per HPI Resp Reports no additional complaints GI Reports no additional complaints Reports as per HPI Musc Reports as per HPI Neuro Reports as per HPI Psych Reports no additional complaints Endo Reports as per HPI Matt/Lymph Reports no additional complaints Aller/Immun Reports no additional complaints Physical Exam Const General: cooperative, healthy appearing, comfortable, no acute distress, well developed, alert and awake Orientation/consciousness: patient oriented x3 Limitations: no limitations HEENT Head: Yes normal to inspection, Yes normocephalic and Yes atraumatic Ears: hearing grossly normal bilaterally Eyes General: appearance normal, both eyes and all related structures Neck Neck: Yes normal visual inspection and Yes trachea midline Chest Chest palpation & inspection: normal inspection of the chest Resp Effort & Inspection: normal respiratory effort and able to speak in complete sentences Cardio Rate: regular rate GI Inspection: Yes normal to inspection General: Yes no CVA tenderness Back/Spine/Pelvis Back: no CVA tenderness Skin General skin exam: no rashes or lesions noted Neuro General: patient oriented x3 Extrem General: Yes normal to inspection Psych Appearance: grossly normal and well kempt Mental Status: mental status grossly normal Speech and movement: Normal speech and movement present and Clear speech present Affect: normal affect Attitude: cooperative Thought process: Normal thought process present Thought content: Normal thought content present Insight: Fair insight present (Psych) Judgement: Fair judgement present (Psych) Results AMB Urinalysis, Automated UA Leukoctes 0 Gabriel/uL Last Edit by Trevor Lang on 10/08/23 10:49 UA Nitrite Negative Last Edit by Trevor Lang on 10/08/23 10:49 UA Urobilinogen 0.2 mg/dL Last Edit by Trevor Lang on 10/08/23 10:49 UA Protein 0 mg/dL Last Edit by Trevor Lang on 10/08/23 10:49 UA pH 7.0 Last Edit by Trevor Lang on 10/08/23 10:49 UA Blood 10 Kristopher/uL Last Edit by Trevor Lang on 10/08/23 10:49 UA Specific [place] 1.010 Last Edit by Trevor Lang on 10/08/23 10:49 UA Ketone Negative Last Edit by Trevor Lang on 10/08/23 10:49 UA Bilirubin 0 mg/dL Last Edit by Trevor Lang on 10/08/23 10:49 UA Glucose 0 mg/dL Last Edit by Trevor Lang on 10/08/23 10:49 Results Reviewed Results Reviewed: Laboratory Last Values Urine pH (Auto) 7.0 10/08/23 10:38 Specific [place] (Auto) 1.010 10/08/23 10:38 Urine Protein (Auto) 0 mg/dL 10/08/23 10:38 Glucose (UA)(Auto) 0 mg/dL 10/08/23 10:38 Urine Ketones (Auto) Negative 10/08/23 10:38 Urine Blood (Auto) 10 Kristopher/uL 10/08/23 10:38 Urine Nitrite (Auto) Negative 10/08/23 10:38 Urine Bilirubin (Auto) 0 mg/dL 10/08/23 10:38 Urine Urobilinogen (Auto) 0.2 mg/dL 10/08/23 10:38 Leukocyte Esterase (Auto) 0 Gabriel/uL 10/08/23 10:38 Date of Service: 09/22/23 EXAMINATION: US RETROPERITONEAL COMPLETE (RENAL) FINDINGS: RIGHT KIDNEY: 11.0 x 4.1 x 5.4 cm (SAG x AP x TRV). The kidney is normal in size, contour, and echogenicity. Renal cortical thickness is normal. No renal calculi or hydronephrosis. Simple appearing 9 mm midpole cyst for which no follow-up imaging is usually warranted. LEFT KIDNEY: 9.6 x 5.4 x 4.5 cm (SAG x AP x TRV). The kidney is normal in size, contour, and echogenicity. Renal cortical thickness is normal. No renal calculi or hydronephrosis. Simple appearing 5 mm midpole cyst for which no follow-up imaging is usually warranted. BLADDER: Well distended and normal. Bilateral ureteral jets are demonstrated. Prevoid bladder volume is 100 mL. There is no postvoid bladder residual identified. IMPRESSION: No renal calculi or hydronephrosis of either kidney. Assessment & Plan Assessment & Plan (1) Microscopic hematuria: Code(s): R31.29 - Other microscopic hematuria (2) Urinary tract infection: Code(s): N39.0 - Urinary tract infection, site not specified (3) Renal cyst: Code(s): N28.1 - Cyst of kidney, acquired Plan In office urinalysis results reviewed with the patient today; as noted above. Recent retroperitoneal ultrasound results reviewed with the patient today; as noted above. Discussed potential for initiation of Estrace cream if she continues with recurrent urinary tract infections. Discussed potential causes of recurrent urinary tract infections and renal cysts. Discussed at length potential causes of microscopic hematuria as well as further workup with in office cystoscopy versus surveillance monitoring; risks and benefits of these interventions were discussed at length. Patient currently denies any bothersome urinary issues or concerns. Recent cytology results reviewed with the patient today; as noted above. Patient reports be happy with current voiding parameters. Will obtain renal ultrasound in 1 year. Follow-up in 1 year with imaging to be completed prior; or sooner with any issues, concerns, and or questions. Orders: Orders AMB Urinalysis Automated Today Z13.9 - Encounter for screening, unspecified US renal BI 1 Year N28.1 - Cyst of kidney, acquired, R31.29 - Other microscopic hematuria Patient Instructions: The patient had an opportunity to ask questions regarding the treatment plan. All questions were answered. Physical exam, labs, and imaging were discussed and reviewed in detail. As well as risks, benefits, and discussion of treatment choices. No major barriers to understanding were identified. The patient expressed understanding and agreement with the above treatment plan. The patient was made aware they should contact our office by phone for worsening of their current condition, the appearance of new symptoms, or with any questions or concerns. Compliance is encouraged with any medications and follow up testing that is ordered. It is a privilege to be allowed the opportunity to participate in? your urological care.? Again, if you have any questions or concerns If you have any questions or concerns please do not hesitate to contact me. The office is [phone]. This note is constructed using voice recognition software. While every effort has been made to ensure accuracy paint brush maker errors may have been included. Yours sincerely, Cyndy Washington, CENSUS CLERK-BC Coding Level of Care Code Est Pt Level 3 (21653) Diagnoses Microscopic hematuria R31.29 Urinary tract infection N39.0 Renal cyst N28.1
== END 2023-10-08 10:58 | disposition home or self-care (01) ==
PROVIDERS: PCP Internal Medicine; Visit Provider Nurse Practitioner Family
DX: R31.29 Other microscopic hematuria (principal); N39.0 Urinary tract infection, site not specified; N28.1 Cyst of kidney, acquired; Z13.9 Encounter for screening, unspecified
CPT/HCPCS: 99213

== ENCOUNTER → 2023-10-08 10:24 | Outpatient (BNVA) | payer OTHER, MEDICAID, SELFPAY | PROVIDERS: PCP Internal Medicine; Visit Provider Nurse Practitioner Family | DX: R31.29 Other microscopic hematuria (principal); N39.0 Urinary tract infection, site not specified; N28.1 Cyst of kidney, acquired | CPT/HCPCS: 81003 ==

== ENCOUNTER 2024-04-20 09:22 | Outpatient (AMB) | payer OTHER, SELFPAY ==
--- NOTE | 2024-04-20 09:25 | MHC.OFFVIS ---
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 Hx of about 4 falls over the last year but she said she never her herself. Patient reports she thinks her sharp pain is really mainly on her right hip. She says she sees a chiropractor in [place] and she says this does help. She reports she feels like she has to drag her foot to ambulate. She walks her dog daily and some days this is difficult. Advil does offer some relief but she does not like having to take it so often. Denies numbness or tingling. She said one of her friends came here about one month ago and was treated with Dr Apple which is what made her contact our office. Hx of left and right hip replacement w/ Dr Bales but she does not remember when. Allergies No Known Allergies Allergy (Verified 04/20/24 09:27) Medication List - Last Reconciled 04/20/24 by Julissa Lama MD aspirin 81 mg PO DAILY atorvastatin 80 mg PO DAILY carbamazepine 200 mg PO BID lisinopril-hydrochlorothiazide 10-12.5 mg 1 tab PO DAILY HPI Comments Details: Pain from right buttocks, not the hip. Only 2-3 weeks ago. When she gets up from the bed, she feels that it is hard to get up and then she's dragging her right leg. No groin pain. No numbness. Last fall around 1 month ago. She has noticed that gait is less stable, started using a cane. History of bilateral SARAH, first when she was 62 years old, other one 15 years ago at least. Lives in [place]. 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 She was playing golf, but had to stop this year. Has been going to the chiropractor for a year, last possibly last week. [facility] Medical History Autonomic neuropathy due to type 2 diabetes mellitus History of seizure disorder Intermittent spinal claudication Neuropathy Localization-related (focal) (partial) symptomatic epilepsy and epileptic syndromes with simple partial seizures, not intractable, without status epilepticus Hypercholesteremia Essential hypertension Endometrial cancer Surgical History History of hysterectomy with bilateral oophorectomy Social History Alcohol intake: current Alcohol intake frequency: holidays/special occasions only Patient Tobacco Use Status: Never used Tobacco Current occupational status: retired Review of Systems Const All systems reviewed & are unremarkable except as noted in HPI and below Physical Exam Vital Signs: BMI result Body Mass Index 30.0 Constitutional: Patient appears to be in no acute distress, well nourished and well developed. Patient was appropriately conversant and oriented. Good historian. MSK: No specific abnormalities found on inspection of the spine and all extremities. No pain with palpation over the lumbar area. No tenderness over spinous processes. No tenderness over SI or GT. Focal tenderness over right piriformis. Lumbar ROM was full. Strength is 5/5 in all muscle groups tested, done while seated. No increased tone noted. Neurological: Neurologic examination of the upper and lower extremities was nonfocal with intact sensation, muscle stretch reflexes and without focal motor deficits . Tidwell?s negative bilaterally. Babinski was down going bilaterally. Clonus was negative. Assessment & Plan Assessment & Plan (1) Piriformis syndrome of right side: Code(s): G57.01 - Lesion of sciatic nerve, right lower limb Category: Medical (2) Frequent falls: Code(s): R29.6 - Repeated falls Category: Medical Plan Presenting with focal tenderness over right piriformis. No footdrop. No neurologic findings. We do want to rule out fracture given frequent falls. X-rays to be done today. We could trial piriformis injection next week if there are no fractures on x-ray. Discussed fall prevention. Assessment and plan discussed with patient, and patient was agreeable. All questions were answered thoroughly. Julissa Lama MD, BALAJI Board Certified, [place] [employer] and Rehabilitation (ABPMR) Board Certified, [place] Board [employer] Electrodiagnostic Medicine (ABEM) Orders: Orders XR hip LT min 2V Today G57.01 - Lesion of sciatic nerve, right lower limb, M16.12 - Unilateral primary osteoarthritis, left hip, R29.6 - Repeated falls XR hip RT min 2V Today G57.01 - Lesion of sciatic nerve, right lower limb, M25.551 - Pain in right hip, R29.6 - Repeated falls XR sacrum coccyx min 2V Today G57.01 - Lesion of sciatic nerve, right lower limb, M53.3 - Sacrococcygeal disorders, not elsewhere classified, R29.6 - Repeated falls XR lumbar spine 2-3V Today G57.01 - Lesion of sciatic nerve, right lower limb, M54.9 - Dorsalgia, unspecified, R29.6 - Repeated falls Coding Level of Care Code New Pt Level 4 (60568) Diagnoses Piriformis syndrome of right side G57.01 Frequent falls R29.6
== END 2024-04-20 10:11 | disposition home or self-care (01) ==
PROVIDERS: PCP Internal Medicine; Visit Provider Physical Medicine & Rehabilitation
DX: G57.01 Lesion of sciatic nerve, right lower limb (principal); R29.6 Repeated falls
CPT/HCPCS: 99203

== ENCOUNTER → 2024-04-20 09:54 | Outpatient (BNV) | payer OTHER, SELFPAY | PROVIDERS: PCP Internal Medicine; Visit Provider Radiology Diagnostic Radiology | DX: M16.12 Unilateral primary osteoarthritis, left hip (principal); M53.3 Sacrococcygeal disorders, not elsewhere classified; M54.50 Low back pain, unspecified; M25.551 Pain in right hip; R29.6 Repeated falls | CPT/HCPCS: 72100; 72220; 73502 ==

== ENCOUNTER 2024-04-28 09:58 | Outpatient (AMB) | payer OTHER, SELFPAY ==
--- NOTE | 2024-04-28 10:05 | A.OFFVIS_ITS ---
Vital Signs 04/28/24 10:05 Height 5 ft 5 in Weight 180 lb BMI 30.0 Intake Visit Reasons: OV- RT Lower back pain, possible piriformis inj Intake Note: Maria Ines is a 84 year old female who presents to the office today for right lower back pain and possible piriformis injection. Patient reports no new concerns today. Allergies No Known Allergies Allergy (Verified 04/28/24 10:09) HPI Comments Details: Pain from right buttocks, not the hip. Only 2-3 weeks ago. When she gets up from the bed, she feels that it is hard to get up and then she's dragging her right leg. No groin pain. No numbness. Last fall around 1 month ago. She has noticed that gait is less stable, started using a cane. History of bilateral SARAH, first when she was 62 years old, other one 15 years ago at least. 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 She was playing golf, but had to stop this year. Has been going to the chiropractor for a year, last possibly last week. On last visit, we thought that pain is coming from right piriformis focally. We did get lumbar and hip x-rays done to be sure there are no fractures. Visualize images today with patient. Unfortunately radiology department is delayed and has not made any official reading, despite many calls to the department. Lumbar x-ray shows possibly a lumbar scoliosis with convex on right, which surprises patient, she was not aware that she may have scoliosis. Shows decreased disc spaces throughout and anterior spurs. Hip x-ray shows prosthesis in place, does not appear to have any fracture. Again await official reading. She continues to have focal pain in right buttock/piriformis. She would like to continue with plan for injection. [facility] Medical History Autonomic neuropathy due to type 2 diabetes mellitus History of seizure disorder Intermittent spinal claudication Neuropathy Localization-related (focal) (partial) symptomatic epilepsy and epileptic syndromes with simple partial seizures, not intractable, without status epilepticus Hypercholesteremia Essential hypertension Endometrial cancer Surgical History History of hysterectomy with bilateral oophorectomy Social History (Reviewed 04/20/24 @ 09:28 by ABEL Dupont Alcohol intake: current Alcohol intake frequency: holidays/special occasions only Patient Tobacco Use Status: Never used Tobacco Current occupational status: retired Physical Exam Vital Signs: BMI result Body Mass Index 30.0 Constitutional: Patient appears to be in no acute distress, well nourished and well developed. Patient was appropriately conversant and oriented. Good historian. MSK: No specific abnormalities found on inspection of the spine and all extremities. No pain with palpation over the lumbar area. No tenderness over spinous processes. No tenderness over SI or GT. Focal tenderness over right piriformis. Lumbar ROM was full. Strength is 5/5 in all muscle groups tested, done while seated. No increased tone noted. Neurological: Neurologic examination of the upper and lower extremities was nonfocal with inta ct sensation, muscle stretch reflexes and without focal motor deficits . Tidwell?s negative bilaterally. Babinski was down going bilaterally. Clonus was negative. Office Procedures Therapeutic Injection Therapeutic Injection Details: Consent obtained. Patient lies prone. Right side, focal tenderness, approximately middle third along line from sacrum to greater trochangter palpated and identified. Area is cleansed with betadine solution. Using a [27 gauge needle., 2 1/2 inch] needle, [20mg] Kenalog with [3 ml] of 2% lidocaine is injected. Patient tolerated procedure well without complications. Post-injection instructions given. 44210-[id number] Point Injection 1 or 2 sites All charges added?: Procedure code (CPT) selection complete Assessment & Plan Assessment & Plan (1) Piriformis syndrome of right side: Code(s): G57.01 - Lesion of sciatic nerve, right lower limb Category: Medical Plan Focal tenderness on right piriformis. Tolerated procedure well. Post-injection instructions given. It is still possible she may have right L5-S1 radiculitis. We will see if her pain resolves after this injection today. Or if we need further imaging such as MRI. Assessment and plan discussed with patient, and patient was agreeable. All questions were answered thoroughly. Julissa Lama MD, BALAJI Board Certified, [place] [employer] and [employer] (ABPMR) Board Certified, [place] Board [employer] Electrodiagnostic [employer] (ABEM) Orders: Orders AMB Trigger Point Injection Today G57.01 - Lesion of sciatic nerve, right lower limb Coding Level of Care Code Est Pt Level 4 (00267) Diagnoses Piriformis syndrome of right side G57.01 CPT Codes Therapeutic Injection - Ther Injection 1: [id number] Point Injection 1 or 2 sites ([id number])
== END 2024-04-28 10:41 | disposition home or self-care (01) ==
PROVIDERS: PCP Internal Medicine; Visit Provider Physical Medicine & Rehabilitation
DX: G57.01 Lesion of sciatic nerve, right lower limb (principal)
CPT/HCPCS: 20552; 99214

== ENCOUNTER → 2024-04-28 09:58 | Outpatient (BNVA) | payer OTHER, SELFPAY | PROVIDERS: PCP Internal Medicine; Visit Provider Physical Medicine & Rehabilitation | DX: G57.01 Lesion of sciatic nerve, right lower limb (principal); M79.18 Myalgia, other site | CPT/HCPCS: 20552; J2003; J3301 ==

== ENCOUNTER 2024-07-06 10:51 | Outpatient (AMB) | payer OTHER, SELFPAY ==
--- NOTE | 2024-07-06 10:59 | MHC.OFFVIS ---
Intake Visit Reasons: OV-RT Lower back pain-2 month follow up Intake Note: Maria Ines is a 84 year old female who presents to the office today for right lower back pain and possible piriformis injection. Patient reports no new concerns today. She mentions that she goes to a chiropractor every week which gives her relief. Allergies No Known Allergies Allergy (Verified 07/06/24 11:03) Medication List - Last Reconciled 07/06/24 by Julissa Lama MD aspirin 81 mg PO DAILY atorvastatin 80 mg PO DAILY carbamazepine 200 mg PO BID lisinopril-hydrochlorothiazide 10-12.5 mg 1 tab PO DAILY HPI Comments Details: Pain from right buttocks, not the hip. Only 2-3 weeks ago prior to first visit. When she gets up from the bed, she feels that it is hard to get up and then she's dragging her right leg. No groin pain. No numbness. Last fall around 1 month ago. She has noticed that gait is less stable, started using a cane. History of bilateral SARAH, first when she was 62 years old, other one 15 years ago at least. Lives in [place]. 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 She was playing golf, but had to stop this year. Has been going to the chiropractor for a year. We thought that pain is coming from right piriformis focally. We did get lumbar and hip x-rays done to be sure there are no fractures. Lumbar x-ray shows possibly a lumbar scoliosis with convex on right, which surprises patient, she was not aware that she may have scoliosis. Shows decreased disc spaces throughout and anterior spurs. Hip x-ray shows prosthesis in place, does not appear to have any fracture. We tried right piriformis injection. Continues to go to chiropractor, diagnosis being treated for is myofascial, doing manual treatments, 10 minutes, every week. She thinks it is helping. When she gets up in the morning, always hurts on the right side. Gets better with movement. Been using cane to prevent falls. [facility] Medical History (Updated 07/06/24 @ 11:33 by Julissa Lama MD) Lumbar spondylosis Autonomic neuropathy due to type 2 diabetes mellitus History of seizure disorder Intermittent spinal claudication Neuropathy Localization-related (focal) (partial) symptomatic epilepsy and epileptic syndromes with simple partial seizures, not intractable, without status epilepticus Hypercholesteremia Essential hypertension Endometrial cancer Surgical History History of hysterectomy with bilateral oophorectomy Social History Alcohol intake: current Alcohol intake frequency: holidays/special occasions only Patient Tobacco Use Status: Never used Tobacco Current occupational status: retired Physical Exam Constitutional: Patient appears to be in no acute distress, well nourished and well developed. Patient was appropriately conversant and oriented. Good historian. MSK: No specific abnormalities found on inspection of the spine and all extremities. No pain with palpation over the lumbar area. No tenderness over spinous processes. No tenderness over SI or GT. Indicated awareness but denied tenderness over right piriformis. Neurological: Neurologic examination of the upper and lower extremities was nonfocal with intact sensation, muscle stretch reflexes and without focal motor deficits. Tidwell?s negative bilaterally. Babinski was down going bilaterally. Clonus was negative. Results Reviewed Results Reviewed: Ordering Physician: Julissa Apple Date of Service: 04/20/24 Procedure(s): XR lumbar spine 2-3V Accession Number(s): [id number] cc: Vito Joel MD; Julissa Apple~ EXAMINATION: XR LUMBOSACRAL SPINE 3 VIEWS CLINICAL INFORMATION: Dorsalgia, unspecified M54.9. Rule out fracture. COMPARISON: None. TECHNIQUE: Three views of the lumbosacral spine. FINDINGS: There is normal bony mineralization. No fractures, compression deformities, or suspicious bone lesions. There is a moderate levoconvex scoliosis, apex at L3. There is a mild rotatory component. There is a normal lumbar lordosis. Minimal degenerative retrolistheses L2 on L3 and L3 on L4. Severe disc degeneration throughout the lumbar spine with relative preservation of L5-S1. There is significant facet arthrosis right greater than left spanning L2-S1. Soft tissues demonstrate vascular calcifications, and surgical clips in the left lower quadrant region. Partially imaged right hip replacement. XR/XR lumbar spine 2-3V IMPRESSION: 1. No acute lumbar findings. 2. Moderate levoconvex scoliosis with rotatory component. 3. Degenerative spondylosis, at least moderate in severity. EXAMINATION: XR SACRUM AND COCCYX 3 VIEWS CLINICAL INFORMATION: Sacrococcygeal disorders, not elsewhere classified M53.3. COMPARISON: XR Lumbar spine 04/20/2024 TECHNIQUE: 3 views of the sacrum and 2 views of the coccyx were obtained. FINDINGS: No definite fracture, or suspicious bone lesion. Coccyx has a normal appearance. The SI joints demonstrate somewhat advanced arthritic changes, with evidence of vacuum phenomenon and subtle periarticular sclerosis and erosions bilaterally. Findings suggest inflammatory arthropathy. Bilateral hip arthroplasties in place without complication seen. No soft tissue abnormality. Surgical clips left lower quadrant. XR/XR sacrum coccyx min 2V IMPRESSION: 1. 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 2. No acute bony abnormalities. Bilateral hip arthroplasties without complication. Assessment & Plan Assessment & Plan (1) Piriformis syndrome of right side: Code(s): G57.01 - Lesion of sciatic nerve, right lower limb Category: Medical (2) Lumbar spondylosis: Code(s): M47.816 - Spondylosis without myelopathy or radiculopathy, lumbar region Category: Medical Plan Overall doing better. Adjusted height of cane as it was too low for her, and taught her how to do it at home if further adjustments needed. She had ordered a walker which is a very good idea. May continue chiropractor. Assessment and plan discussed with patient, and patient was agreeable. All questions were answered thoroughly. Follow up as needed. Julissa Lama MD, BALAJI Board Certified, [place] [employer] and [employer] (ABPMR) Board Certified, [place] [employer] Electro[employer] (ABEM) Coding Level of Care Code Est Pt Level 3 (27879) Diagnoses Piriformis syndrome of right side G57.01 Lumbar spondylosis M47.816
--- OUTSIDE RECORDS SUMMARY | 2024-07-06 11:32 | XMS_ITS ---
Author Organization Vito Joel MD Address [address] [place] [phone] Care Team Providers Care Waiter/Waitress Second Class Name Role Phone Vito Joel Primary Care Provider REASON FOR VISIT yearly fasting labs Encounters Encounter Location Date Provider Diagnosis Vito Joel MD [address] [place] [phone] 07/06/2024 Vito Joel Blood tests for rout ine general physical examination Z00.00 ; Essential hypertension I10 ; Prediabetes R73.09 and Pure hypercholesterolemia E78.00 ASSESSMENTS Encounter Date Diagnosis Assessment Notes Treatment Notes Treatment Clinical Notes 07/06/2024 Blood tests for rout ine general physical examination (ICD-10 - Z00.00) 07/06/2024 Essential hypertensi on (ICD-10 - I10) 07/06/2024 Prediabetes (ICD-10 - R73.09) 07/06/2024 Pure hypercholestero lemia (ICD-10 - E78.00) PLAN OF TREATMENT Pending Test Test Name Order Date Complete Blood Count Auto Diff Comprehensive Eva. Panel Fast Lipid Panel 07/06/2024 Microalbumin, Random 07/06/2024 Hemoglobin A1c 07/06/2024 UA ClnCatch+Micro w/rflx Cult 07/06/2024 Next Appt Details Provider Name:Vito romero, 07/13/2024 11:00:00 AM, [address] [place] [address], [address], [place], [phone],
--- OUTSIDE RECORDS SUMMARY | 2024-07-06 11:33 | XMS_ITS | Patient Health Record ---
Author Organization [facility] Address [address] [place] [address] Care Team Providers Care Panel Cutter Name Role Phone Wisam DAWSON, Vito Primary Care Provider Irais Mcghee Unavailable [phone] DayannaGerald romero Unavailable [phone] Allergies No Known Allergies Results Component Value Reference Range Notes X ray : Foot, left 3V Reviewed date:11/08/2023 01:46:56 PM Interpretation:See Examination above Performing Lab: Notes/Report: See Examination above X ray : Foot, right 3V Reviewed date:11/08/2023 01:46:45 PM Interpretation:See Examination above Performing Lab: Notes/Report: See Examination above Reason For Referral No Information Medications Medication SIG (Take, Route, Frequency, Duration) Notes Start Date End Date Status Prinivil 10 MG 1 tablet Orally Once a day for 30 day(s) Not-Taking TEGretol 100 MG/5ML 5 ml Orally Three times a day for 30 day(s) Not-Taking Night Splint AFO - L1930 1 wear at rest for 30 days Not-Taking Lipitor 80 MG 1 tablet Orally Once a day Not-Taking Aspirin 75 MG 1 tablet Orally Once a day Active carBAMazepine 200 MG 1 tablet Orally Twi ce a day Active Lisinopril 10 MG 1 tablet Orally Once a day Active Atorvastatin Calcium 80 MG Oral for 90 Days Active Social History Tobacco Use: Social History Observation Description Date Details (start date - stop date) Never Smoker NA - NA Tobacco Use/Smoking Question Answer Notes Are you a: nonsmoker Additional Findings: Tobacco Non-User Current no n-smoker Alcohol Screen Question Answer Notes Did you have a drink contain ing alcohol in the past year? Yes How often did you have a dri nk containing alcohol in the past year? 2 to 4 times a month (2 points) Points 2 Interpretation Negative Tobacco use other than smoking: Question Answer Notes Are you an other tobacco user? 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 confirmed Problem 876530399 Pronation deformity of right foot (M21.6X1) Active confirmed Problem 117092050 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) Active confirmed Problem 278543651 Equinus contracture of right ankle (M24.571) Active confirmed Problem Localized, primary osteoarthritis of the ankle and/or foot (921511665) Osteoarthritis of right ankle and foot (M19.071) Active confirmed Problem Localized, primary osteoarthritis of the ankle and/or foot (831560789) Osteoarthritis of left ankle and foot (M19.072) Active confirmed Vital Signs Height 5 ft 5 in in 03/13/2024 Weight 180 lbs 03/13/2024 BMI 29.95 kg/m2 03/13/2024 Procedures Procedure Date Ordered Date Performed Result Body Sit e 53797-QEYKHHY NAIL, 6 OR MORE 11/08/2023 N/A [id number] NAIL, 6 OR MORE 03/13/2024 N/A Encounters Encounter Location Date Provider Diagnosis [facility] [place] [address] [place] [address] 11/08/2023 Irais Black Pain in right foot M79.671 ; Plantar fasciitis, bilateral M72.2 ; Calcaneal spur, right foot M77.31 ; Other myositis of right foot M60.871 ; Bursitis of right foot M77.51 ; Pain in left foot M79.672 ; Other myositis of left foot M60.872 ; Bursitis of left foot M77.52 ; Tinea unguium B35.1 ; Pain in right toe(s) M79.674 ; Pain in left toe(s) M79.675 ; Osteoarthritis of left ankle and foot M19.072 and Osteoarthritis of right ankle and foot M19.[address] [phone] 03/13/2024 Irais Prieto Pain in right foot M79.671 ; Plantar fasciitis, bilateral M72.2 ; Calcaneal spur, right foot M77.31 ; Other myositis of right foot M60.871 ; Bursitis of right foot M77.51 ; Pain in left foot M79.672 ; Other myositis of left foot M60.872 ; Bursitis of left foot M77.52 ; Tinea unguium B35.1 ; Pain in right toe(s) M79.674 and Pain in left toe(s) M79.[address] [address] 10/13/2023 Irais Prieto Assessments Encounter Date Diagnosis (ICD Code) Assessment Notes Treatment Notes Treatment Clinical Notes Section Notes 11/08/2023 Pain in right foot (ICD-10 - M79.671) 03/13/2024 Pain in right foot (ICD-10 - M79.671) 03/13/2024 Plantar fasciitis, bilateral (ICD-10 - M72.2) 11/08/2023 Plantar fasciitis, bilateral (ICD-10 - M72.2) Patient Educated with: HEEL CORD STRETCHES.pdf (HEEL CORD STRETCHES.pdf ) Patient Educated with: RICE THERAPY.pdf (RICE THERAPY.pdf) 03/13/2024 Calcaneal spur, right foot (ICD-10 - M77.31) 11/08/2023 Calcaneal spur, right foot (ICD-10 - M77.31) 11/08/2023 Other myositis of right foot (ICD-10 - M60.871) 03/13/2024 Other myositis of right foot (ICD-10 - M60.871) 03/13/2024 Bursitis of right foot (ICD-10 - M77.51) 11/08/2023 Bursitis of right foot (ICD-10 - M77.51) 03/13/2024 Pain in left foot (ICD-10 - M79.672) 11/08/2023 Pain in left foot (ICD-10 - M79.672) 11/08/2023 Other myositis of left foot (ICD-10 - M60.872) 03/13/2024 Other myositis of left foot (ICD-10 - M60.872) 03/13/2024 Bursitis of left foot (ICD-10 - M77.52) 11/08/2023 Bursitis of left foot (ICD-10 - M77.52) 03/13/2024 Tinea unguium (ICD-10 - B35.1) 11/08/2023 Tinea unguium (ICD-10 - B35.1) 11/08/2023 Pain in right toe(s) (ICD-10 - M79.674) 03/13/2024 Pain in right toe(s) (ICD-10 - M79.674) 11/08/2023 Pain in left toe(s) (ICD-10 - M79.675) 03/13/2024 Pain in left toe(s) (ICD-10 - M79.675) 11/08/2023 Osteoarthritis of left ankle and foot (ICD-10 - M19.072) 11/08/2023 Osteoarthritis of right ankle and foot (ICD-10 - M19.071) Plan Of Treatment Pending Test Test Name Order Date [id number] NAIL, 6 OR MORE 11/08/2023 [id number] NAIL, 6 OR MORE 03/13/2024 Next Appt Details Provider Name:Irais Prieto , 07/13/2024 03:00:00 PM, [address] [facility], [place], [address], Insurance Providers Payer Name Payer Address Payer Phone Subscriber Number Group Number Insured Name Patient Relationship to Insured Coverage Start Date Coverage End Date [employer] ([facility] [address] [place] [id number] Maria Ines Kam Self - patient is the insured Medical (General) History Medical History History ICD Code Cancer Seizures High blood pressure Surgical History Surgery Date(Month/Year) historectomy left and right hip replacement [id number]
--- OUTSIDE RECORDS SUMMARY | 2024-07-06 11:33 | XMS_ITS ---
Author Organization Vito Joel MD Address [address] [place] [phone] Care Team Providers Care Security Alarm Installer Name Role Phone Vito Joel Primary Care Provider [phone] REASON FOR VISIT refill MEDICATIONS Medication SIG (Take, Route, Fr equency, Duration) Notes Start Date End Date Status carBAMazepine 200 MG TAKE 1 TABLET TWICE A DAY Orally Twice a day for 90 days A ctive Encounters Encounter Location Date Provider Diagnosis Vito Joel MD [address] [place] [phone] 06/13/2024 Vito Joel Essential hypertension I10 ASSESSMENTS Encounter Date Diagnosis Assessment Notes Treatment Notes Treatment Clinical Notes 06/13/2024 Essential hypertension (ICD-10 - I10) PLAN OF TREATMENT Medication Medication Name Sig Start Date Stop Date Notes carBAMazepine 200 MG TAKE 1 TABLET TWICE A DAY Orally Twice a day for 90 days Next Appt Details Provider Name:Vito romero, 07/13/2024 11:00:00 AM, [address] [facility], [address] [facility], [place], [place], [phone],
--- OUTSIDE RECORDS SUMMARY | 2024-07-06 11:33 | XMS_ITS | Patient Health Record ---
Author Organization Vito Joel MD Address [address] [place], [place] [id number] Care Team Providers Care Parts Room Clerk Name Role Phone Vito Joel Primary Care Provider ALLERGIES No Known Allergies RESULTS Component Value Reference Range Notes Urine Culture Reviewed date:08/22/2023 05:34:33 PM Interpretation: Performing Lab:[facility], [address] [place] [id number] Notes/Report: O:ESCCOL Escherichia coli Urine Culture Quant Urine Culture 10,000 to 50,000 cfu/mL Ampicillin 4 Ceftriaxone <=0.25 Gentamicin <=1 Levofloxacin <=0.12 Nitrofurantoin 64 Trimethoprim/Sulfamethoxazole <=20 MM tomosynthesis screening B I Reviewed date:09/20/2023 05:21:17 PM Interpretation: Performing Lab: Notes/Report: [facility] [address] [place] [address] Mammography Report Signed Patient: Maria Ines Kam MR#: [id number] 983 : 1940 Acct:[id number] Age/Sex: 83 / F ADM Date: 09/01/23 Loc: HO.MAMMO Attending Dr: Vito Joel MD Ordering Physician: Vito Joel MD Results: 2Be nign Findings Date of Service: 09/01/23 Follow Up: 1 Year From [facility] Mammogram Procedure(s): MM tomosynthesis screening BI Accession Number(s): [id number] cc: Vito Joel MD EXAMINATION: MM SCREENING DIGITAL BREAST TOMOSYNTHESIS, BILATERAL CLINICAL INFORMATION: Screening. Asymptomatic. COMPARISON: Mammography: This study is compared with prior exams dating back to 2019. TECHNIQUE: Digital breast tomosynthesis is performed in both the craniocaudal and mediolateral oblique views along with computer-aided detection (CAD). Synthesized 2D images are generated from the tomosynthesis. FINDINGS: The breasts are heterogeneously dense, which may obscure small masses (ACR BI-RADS breast composition Category c). There are no significant masses, abnormal calcifications, or other abnormalities. There is tissue marker present in the left breast from prior benign percutaneous biopsy. There are benign calcifications scattered throughout each breast. MM/MM tomosynthesis screening BI IMPRESSION: No mammographic evidence of malignancy. ASSESSMENT: BI-RADS BI-RADS 2 - Benign Findings RECOMMENDATION: Routine annual mammography screening. 1 year F/U This examination should not preclude the clinical evaluation of a suspicious palpable abnormality. This patient's information was entered into a reminder system with a target due date for their next mammogram. Dictated By: Veronica Garcia MD Signed By: <Electronically signed by Veronica Garcia MD in OV> 09/19/23 1553 DD/ 1155 TD/TT: Fibrous Plasterer: US retroperitoneal comp Reviewed date:09/24/2023 12:57:21 PM Interpretation: Performing Lab: Notes/Report: [address] [address] Ultrasound Report Signed Patient: Maria Ines Kam MR#: [id number] 983 : 1940 Acct:[id number] Age/Sex: 83 / F ADM Date: 09/22/23 Loc: HO.US Attending Dr: Cyndy JHAVERI- Ordering Physician: Cyndy Washington Date of Service: 09/22/23 Procedure(s): US retroperitoneal comp Accession Number(s): [id number] cc: Vito Joel MD; Cyndy Washington 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 COMPARISON: None available. TECHNIQUE: Real-time imaging of the kidneys and bladder. FINDINGS: RIGHT KIDNEY: 11.0 x 4.1 x 5.4 cm (SAG x AP x TRV). The kidney is normal in size, contour, and echogenicity. Renal cortical thickness is normal. No renal calculi or hydronephrosis. Simple appearing 9 mm midpole cyst for which no follow-up imaging is usually warranted. LEFT KIDNEY: 9.6 x 5.4 x 4.5 cm (SAG x AP x TRV). The kidney is normal in size, contour, and echogenicity. Renal cortical thickness is normal. No renal calculi or hydronephrosis. Simple appearing 5 mm midpole cyst for which no follow-up imaging is usually warranted. BLADDER: Well distended and normal. Bilateral ureteral jets are demonstrated. Prevoid bladder volume is 100 mL. There is no postvoid bladder residual identified. US/US retroperitoneal comp IMPRESSION: No renal calculi or hydronephrosis of either kidney. Dictated By: Talon Saleh MD Signed By: <Electronically signed by Talon Saleh MD in OV> 09/24/23 1247 DD/ 1024 TD/TT: Fibrous Plasterer: PD XR hip LT min 2V Reviewed date:06/18/2024 02:18:50 PM Interpretation: Performing Lab: Notes/Report: [facility] [address] [place] [address] Drive [address] [place] [address] XRay Report Signed Patient: Maria Ines Kam MR#: [id number] 983 : 1940 Acct:[id number] Age/Sex: 84 / F ADM Date: 04/20/24 Loc: HO.HOSX Attending Dr: Julissa Lama MD Ordering Physician: Julissa Apple Date of Service: 04/20/24 Procedure(s): XR hip LT min 2V Accession Number(s): [id number] cc: Vito Joel MD; Julissa Apple EXAMINATION: XR HIP LEFT 2 VIEWS CLINICAL INFORMATION: Unilateral primary osteoarthritis, 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 Rule out facture. COMPARISON: XR Left hip 08/04/2011 (report only). TECHNIQUE: Two views of the left hip. FINDINGS: There is normal bone mineralization. There has been a total left hip arthroplasty. Femoral, and acetabular components are intact, well seated, in anatomic alignment. No periprosthetic fracture. No evidence of subsidence or periprosthetic lucencies. No soft tissue abnormalities. XR/XR hip LT min 2V IMPRESSION: Left hip arthroplasty without acute complication. No fracture. Electronically signed by: Julien Espinoza MD 06/16/2024 04:07 PM EST Dictated By: Julien Espinoza MD Signed By: <Electronically signed by Julien Espinoza MD in OV> 06/16/24 1607 DD/ 0954 TD/TT: 04/20/24 0958 Fibrous Plasterer: XR lumbar spine 2-3V Reviewed date:06/18/2024 02:19:34 PM Interpretation: Performing Lab: Notes/Report: [facility] [address] [place] [address] Drive [address] [place] [address] XRay Report Signed Patient: Maria Ines Kam MR#: [id number] 983 : 1940 Acct:[id number] Age/Sex: 84 / F ADM Date: 04/20/24 Loc: HO.HOSX Attending Dr: Julissa Lama MD Ordering Physician: Julissa Apple Date of Service: 04/20/24 Procedure(s): XR lumbar spine 2-3V Accession Number(s): [id number] cc: Vito Joel MD; Julissa Apple EXAMINATION: XR LUMBOSACRAL SPINE 3 VIEWS CLINICAL INFORMATION: Dorsalgia, unspecified M54.9. Rule out fracture. COMPARISON: None. TECHNIQUE: Three views of the lumbosacral spine. FINDINGS: There is normal bony mineralization. No fractures, compression deformities, or suspicious bone lesions. There is a moderate levoconvex scoliosis, apex at L3. There is a mild rotatory component. There is a normal lumbar lordosis. Minimal degenerative retrolistheses L2 on L3 and L3 on L4. Severe disc degeneration throughout the lumbar spine with relative preservation of L5-S1. There is significant facet arthrosis right greater than left spanning L2-S1. Soft tissues demonstrate vascular calcifications, and surgical clips in the left lower quadrant region. Partially imaged right hip replacement. XR/XR lumbar spine 2-3V IMPRESSION: 1. No acute lumbar findings. 2. Moderate levoconvex scoliosis with rotatory component. 3. Degenerative spondylosis, at least moderate in severity. Electronically signed by: Julien Espinoza MD 06/16/2024 04:03 PM EST RP Dictated By: Julien Espinoza MD Signed By: <Electronically signed by Julien Espinoza MD in OV> 06/16/24 1603 DD/ TD/TT: 04/20/2458 Fibrous Plasterer: XR hip RT min 2V Reviewed date:06/18/2024 02:20:56 PM Interpretation: Performing Lab: Notes/Report: [facility] [address] [place] [address] [address] [place] [address] XRay Report Signed Patient: Maria Ines Kam MR#: [id number] 983 : 1940 Acct:[id number] Age/Sex: 84 / F ADM Date: 04/20/24 Loc: HO.HOSX Attending Dr: Julissa Lama MD Ordering Physician: Julissa Apple Date of Service: 04/20/24 Procedure(s): XR hip RT min 2V Accession Number(s): [id number] cc: Vito Joel MD; Julissa Apple EXAMINATION: XR HIP RIGHT 2 VIEWS CLINICAL INFORMATION: Pain in right hip M25.551. Rule out fracture. COMPARISON: XR Pelvis 07/29/2010 (report only). TECHNIQUE: Two views of the right hip. FINDINGS: There is normal bone mineralization. There has been a total right hip arthroplasty. Femoral, and acetabular components are intact, well seated, in anatomic alignment. No periprosthetic fracture. No evidence of subsidence or periprosthetic lucencies. No soft tissue abnormalities. XR/XR hip RT min 2V IMPRESSION: Right hip arthroplasty without acute complication. No fracture. Electronically signed by: Julien Espinoza MD 06/16/2024 04:05 PM EST RP Dictated By: Julien Espinoza MD Signed By: <Electronically signed by Julien Espinoza MD in OV> 06/16/24 1605 DD/ 3 TD/TT: 04/20/24957 Fibrous Plasterer: XR sacrum coccyx min 2V Reviewed date:06/18/2024 02:20:28 PM Interpretation: Performing Lab: Notes/Report: [facility] [address] [place] [address] Drive [address] [place] [address] XRay Report Signed Patient: Maria Ines Kam MR#: [id number] 983 : 1940 Acct:[id number] Age/Sex: 84 / F ADM Date: 04/20/24 Loc: HO.SISSYX Attending Dr: Julissa Lama MD Ordering Physician: Julissa Apple Date of Service: 04/20/24 Procedure(s): XR sacrum coccyx min 2V Accession Number(s): [id number] cc: Vito Joel MD; Julissa Apple EXAMINATION: XR SACRUM AND COCCYX 3 VIEWS CLINICAL INFORMATION: Sacrococcygeal disorders, not elsewhere classified M53.3. COMPARISON: XR Lumbar spine 04/20/2024 TECHNIQUE: 3 views of the sacrum and 2 views of the coccyx were obtained. FINDINGS: No definite fracture, or suspicious bone lesion. Coccyx has a normal appearance. The SI joints demonstrate somewhat advanced arthritic changes, with evidence of vacuum phenomenon and subtle periarticular sclerosis and erosions bilaterally. Findings suggest inflammatory arthropathy. Bilateral hip arthroplasties in place without complication seen. No soft tissue abnormality. Surgical clips left lower quadrant. XR/XR sacrum coccyx min 2V IMPRESSION: 1. 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 2. No acute bony abnormalities. Bilateral hip arthroplasties without complication. Electronically signed by: Julien Espinoza MD 06/16/2024 04:10 PM [facility] Dictated By: Julien Espinoza MD Signed By: <Electronically signed by Julien Espinoza MD in OV> 06/16/24 1610 DD/ 3 TD/TT: 04/20/24957 Fibrous Plasterer: REASON FOR REFERRAL Reason Microscopic hematuri a Diagnosis 1 Microscopic hematuri a (R31.29) Referral Organization Vito Joel MD Referring Provider First Name Vito Referring Provider Last Name Wisam Referring Provider Speciality Internal M edicine Referred Provider Martha Stearns Referred Provider Specialty Urology General Notes Beth Moreno 02:15:45 PM EST > info faxed Beth Moreno 07/15/2023 10:08:51 AM EST > appt is with Josh Rodriguez Annette 07/15/2023 10:34:09 AM EST > info mailed to patient Referral Priority Routine Referral Appointment Date 08/18/2023 MEDICATIONS Medication SIG (Take, Route, Frequency, Duration) Notes Start Date End Date Status Atorvastatin Calcium 80 MG TAKE 1 TABLET DAILY Orally Once a day for 90 days Active carBAMazepine 200 MG TAKE 1 TABLET TWICE A DAY Orally Twice a day for 90 days Active Nystatin-Triamcinolone 073380-3.1 UNIT/GM 1 application to affected area Externally Twice a day for 30 days 09/21/2017 Not-Taking Molnupiravir 200 MG 4 capsules Orally ev dara 12 hrs for 5 day(s) 03/23/2024 Active Aspir-81 81 MG 1 tablet Orally Once a day for 30 day(s) Active Lisinopril-hydroCHLOROthi azide 10-12.5 mg TAKE 1 TABLET DAILY Orally Once a day for 90 days Active IMMUNIZATIONS Vaccine Route Administration Date Status Comme nts Flu Vaccine Unknown 03/13/2011 Administered Shingles Unknown 10/08/2011 Administered Flu Vaccine IM Intramuscular 04/21/2012 Administered Flu Vaccine IM Intramuscular 05/09/2013 Administered PPSV23 (Pnemovax) IM Intramuscular 05/11/2013 Administered Fluarix Quadrivalent IM Intramuscular 03/22/2014 Administe red Prevnar 13 IM Intramuscular 01/29/2015 Administered zFluzone Quadrivalent IM Intramuscular 08/16/2015 Administered Fluarix Quadrivalent IM Intramuscular 08/04/2016 Administe red Fluarix Quadrivalent IM Intramuscular 03/16/2017 Administe red Shingrix IM Intramuscular 11/30/2017 Administered TDaP IM Intramuscular 12/24/2017 Administered pt was given the vaccine at [facility] [place]. Fluarix Quadrivalent IM Intramuscular 03/28/2018 Administe red Shingrix IM Intramuscular 04/12/2018 Administered PPSV23 (Pnemovax) IM Intramuscular 10/07/2018 Administered Fluarix Quadrivalent IM Intramuscular 04/03/2019 Administe red Fluarix Quadrivalent IM Intramuscular 04/05/2020 Administe red Covid Vaccine Unknown 07/19/2020 Administered Pfizer cv s Covid Vaccine Unknown 08/08/2020 Administered Pfizer Influenza High Dose IM Intramuscular 04/21/2021 Administer ed SARS-COV-2 Pfizer Unknown 04/07/2021 Administered SARS-COV-2 Pfizer Unknown 04/07/2021 Administered SARS-COV-2 Pfizer Unknown 10/24/2021 Administered Influenza High Dose IM Intramuscular 04/23/2022 Administer ed Influenza High Dose IM Intramuscular 03/12/2023 Administer ed SOCIAL HISTORY Tobacco Use: Social History Observation Description Date Details (start date - stop date) Never Smoker NA - NA Sex Assigned At : Social History Observation Description Sex Assigned At Unknown Tobacco Use/Smoking Question Answer Notes Patient is a nonsmoker Additional Findings: Tobacco Non-User Cu rrent non-smoker, currently using no form of tobacco Alcohol Screen Question Answer Notes Did you have a drink contain ing alcohol in the past year? Yes How often did you have a dri nk containing alcohol in the past year? Monthly or less (1 point) How many drinks did you have on a typical day when you were drinking in the past year? 1 or 2 drinks (0 point) How often did you have 6 or more drinks on one occasion in the past year? 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) Active confirmed Diabetic autonomic neuropathy due to type 2 diabetes mellitus (990920028) Problem History of endometri al cancer (Z85.42) Active confirmed 810939999 Problem Pure hypercholesterolemia (E78.00) Active confirmed 964734198 Problem 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) Active confirmed 851185428 Problem Intermittent spinal claudication (G95.19) Active confirmed Interm ittent spinal claudication (256939104) VITAL SIGNS Blood pressure diastolic 54 mm Hg 07/09/2023 mari ght is up 3 pounds since 03-02-23 Height 65.25 in 03/23/2024 weight at home is 180 BP not taken at home Blood pressure systolic 132 mm Hg 07/09/2023 marig ht is up 3 pounds since 03-02-23 Weight 180 lbs 03/23/2024 weight at home is 180 BP not taken at home BMI 29.72 kg/m2 03/23/2024 weight at home is 180 BP not taken at home Encounters Encounter Location Date Provider Diagnosis Vito Joel MD [address] [place] [id number] 07/09/2023 Vito Joel Microscopic hematuri a R31.29 ; Annual physical exam Z00.00 ; Essential hypertension I10 ; Prediabetes R73.09 ; Pure hypercholesterolemia E78.00 ; 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 and Depression screening Z13.31 Vito Joel MD [address] [place] [id number] 07/06/2024 Vito Joel Blood tests for rout ine general physical examination Z00.00 ; Essential hypertension I10 ; Prediabetes R73.09 and Pure hypercholesterolemia E78.00 Vito Joel MD [address] [place] [id number] 10/11/2023 Vito Joel Essential hypertensi on I10 Vito Joel MD [address] [place] [id number] 01/11/2024 Vito Joel MD [address] [place] [id number] 03/23/2024 Vito Joel Acute COVID-19 U07.1 Vito Joel MD [address] [place] [id number] 04/24/2024 Vito Joel MD [address] [place] [id number] 06/13/2024 Vito Joel Essential hypertensi on I10 Vito Joel MD [address] [place] [id number] 03/23/2024 Vito Smiley COVID-19 U07.1 ASSESSMENTS Encounter Date Diagnosis Assessment Notes Treatment Notes Treatment Clinical Notes 07/09/2023 Annual physical exam (ICD-10 - Z00.00) labs reviewed and discussed with patient 07/09/2023 Microscopic hematuri a (ICD-10 - R31.29) referral to urology [facility] [place] 07/06/20[address] ine general physical examination (ICD-10 - Z00.00) 10/11/2023 Essential hypertensi on (ICD-10 - I10) 03/23/2024 Acute COVID-19 (ICD- 10 - U07.1) 06/13/2024 Essential hypertensi on (ICD-10 - I10) 03/23/2024 Acute COVID-19 (ICD- 10 - U07.1) patient verbalized understanding of medication and directions for use 07/09/2023 Essential hypertensi on (ICD-10 - I10) good bp continue same meds 07/06/2024 Essential hypertensi on (ICD-10 - I10) 07/09/2023 Prediabetes (ICD-10 - R73.09) stable, no need for medication at this time 07/06/2024 Prediabetes (ICD-10 - R73.09) 07/09/2023 Pure hypercholestero lemia (ICD-10 - E78.00) WELL CONTROLLED, will continue current regiment 07/06/2024 Pure hypercholestero lemia (ICD-10 - E78.00) 07/09/2023 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 Panel Fast Lipid Panel 07/06/2024 Microalbumin, Random 07/06/2024 Hemoglobin A1c 07/06/2024 UA ClnCatch+Micro w/rflx Cult 07/06/2024 Next Appt Details Provider Name:Vito Johnson ier, 07/13/2024 11:00:00 AM, [address], [address], [place], [place], [id number], Insurance Providers Payer Name Payer Address Payer Phone Subscriber Number Group Number Insured Name Patient Relationship to Insured Coverage Start Date Coverage End Date [facility] [address] [facility] [address] [place] [id number] [facility] Maria Ines Kam Self - patient is the insured MEDICAL (GENERAL) HISTORY Medical History History ICD Code hysterectomy (2002) and oopherectomy endometrial cancer - 200211/24/2012 - refuses Colonsco py 2013; REFUSED COLONOSCOPY - DON'T ASK AGAIN 08/17/16 Surgical History Surgery Date(Month/Year) left hip replacement 07/2010 right hip replacement 07/1994
--- OUTSIDE RECORDS SUMMARY | 2024-07-06 11:33 | XMS_ITS ---
Author Organization [facility] Address [address] [place] [address] Care Team Providers Care Programming Equipment Operator Name Role Phone Wisam DAWSON, Vito Primary Care Provider Horace Irais Sunshine Unavailable [phone] Gerald Alan Unavailable [phone] REASON FOR VISIT wrong patient Encounters Encounter Location Date Provider Diagnosis [address] [address] 12/21/2023 Gerald Alan Plan Of Treatment Next Appt Details Provider Name:Irais Prieto , 07/13/2024 03:00:00 PM, [address] [place], [address], Progress Notes * KAM Maria Ines ADOB:[birth year] (84 yo F)Acc No.[id number]:12/21/2023 Progress Notes Patient:?Maria Ines KAM Provider:?Gerald Alan DPM :1940???Age:83 Y???Sex:Female D ate:12/21/2023 Address: [address] [id number] Pcp:Vito Joel MD Subjective: * Chief Complaints: * ???1. Wrong patient. * Medical History:? Objective: * Vitals:? Assessment: Plan: * Treatment: * Images: * The named appointment provid er may or may not be the originator of this progress note, and it is not deemed complete until electronically signed by the appointment provider. Sign off status: Pending * Provider:?Gerald Alan DPM Date:?2023 Generated for Chey winslow/Sofie/Ez on:?07/06/2024 11:33 AM EST
--- OUTSIDE RECORDS SUMMARY | 2024-07-06 11:33 | XMS_ITS ---
Author Organization Vito Joel MD Address [address] [place] [phone] Care Team Providers Care Director Behavioral Health Name Role Phone Vito Joel Primary Care Provider [phone] REASON FOR VISIT refill atorvastatin MEDICATIONS Medication SIG (Take, Route, Frequency, Duration) Notes Start Date End Date Status Atorvastatin Calcium 80 MG TAKE 1 TABLET DAILY Orally Once a day for 90 days Active Encounters Encounter Location Date Provider Diagnosis Vito Joel MD [address] [facility] [address] [place] [id number] 04/24/2024 Vito Joel PLAN OF TREATMENT Medication Medication Name Sig Start Date Stop Date Notes Atorvastatin Calcium 80 MG TAKE 1 TABLET DAILY Orally Once a day for 90 days Next Appt Details Provider Name:Vito arizar, 07/13/2024 11:00:00 AM, [address] [facility], [address] [facility], [place], [place], [id number],
--- OUTSIDE RECORDS SUMMARY | 2024-07-06 11:33 | XMS_ITS ---
Author Organization [facility] Address [address] [place] [address] Care Team Providers Care Auto Travel Counselor Name Role Phone Vito Joel MD Primary Care Provider Irais Mcghee Unavailable [phone] Allergies No Known Allergies Results Component Value Reference Range Notes X ray : Foot, left 3V Reviewed date:11/08/2023 01:46:56 PM Interpretation:See Examination above Performing Lab: Notes/Report: See Examination above X ray : Foot, right 3V Reviewed date:11/08/2023 01:46:45 PM Interpretation:See Examination above Performing Lab: Notes/Report: See Examination above REASON FOR VISIT pcp: 07/2023, Heel pain, Painful nail(s) aggrevated by shoes causing difficulty standing/walking Medications Medication SIG (Take, Route, Frequency, Duration) Notes Start Date End Date Status Prinivil 10 MG 1 tablet Orally Once a day for 30 day(s) Unknown Night Splint AFO - L1930 1 wear at rest for 30 days Active TEGretol 100 MG/5ML 5 ml Orally Three ti mes a day for 30 day(s) Unknown carBAMazepine 200 MG 1 tablet Orally Twi ce a day Active Lipitor 80 MG 1 tablet Orally Once a day Unknown Atorvastatin Calcium 80 MG Oral for 90 Days Active Aspirin 75 MG 1 tablet Orally Once a day Active Lisinopril 10 MG 1 tablet Orally Once a day Active Social History Tobacco Use: Social History Observation Description Date Details (start date - stop date) Never Smoker NA - NA Tobacco Use/Smoking Question Answer Notes Are you a: nonsmoker Additional Findings: Tobacco Non-User Current no n-smoker Alcohol Screen Question Answer Notes Did you have a drink containing alcohol in the p ast year? Yes Points 0 Interpretation Negative Tobacco use other than smoking: Question Answer Notes Are you an other tobacco user? 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 Problem Localized, primary osteoarthritis of the ankle and/or foot (647326998) Osteoarthritis of right ankle and foot (M19.071) Active confirmed Vital Signs Height 5 ft 5 in in 11/08/2023 Weight 180 lbs 11/08/2023 BMI 29.95 kg/m2 11/08/2023 Procedures Procedure Date Ordered Date Performed Result Body Sit e 61085-BUHWMUZ NAIL, 6 OR MORE 11/08/2023 N/A Encounters Encounter Location Date Provider Diagnosis [facility] [address] [place] [address] 11/08/2023 Irais Black Pain in right foot [...] Osteoarthritis of right ankle and foot M19.071 Assessments Encounter Date Diagnosis (ICD Code) Assessment Notes Treatment Notes Treatment Clinical Notes Section Notes 11/08/2023 Pain in right foot (ICD-10 - M79.671) 11/08/2023 Plantar fasciitis, bilateral (ICD-10 - M72.2) Patient Educated with: HEEL CORD STRETCHES.pdf (HEEL CORD STRETCHES.pdf ) Patient Educated with: RICE THERAPY.pdf (RICE THERAPY.pdf) 11/08/2023 Calcaneal spur, right foot (ICD-10 - M77.31) 11/08/2023 Other myositis of right foot (ICD-10 - M60.871) 11/08/2023 Bursitis of right foot (ICD-10 - M77.51) 11/08/2023 Pain in left foot (ICD-10 - M79.672) 11/08/2023 Other myositis of left foot (ICD-10 - M60.872) 11/08/2023 Bursitis of left foot (ICD-10 - M77.52) 11/08/2023 Tinea unguium (ICD-10 - B35.1) 11/08/2023 Pain in right toe(s) (ICD-10 - M79.674) 11/08/2023 Pain in left toe(s) (ICD-10 - M79.675) 11/08/2023 Osteoarthritis of left ankle and foot (ICD-10 - M19.072) 11/08/2023 Osteoarthritis of right ankle and foot (ICD-10 - M19.071) Plan Of Treatment Medication Medication Name Sig Start Date Stop Date Notes Night Splint AFO - L1930 1 wear at rest for 30 days Treatment Notes Assessment Notes Plantar fasciitis, bilateral Patient Edu cated with: HEEL CORD STRETCHES.pdf (HEEL CORD STRETCHES.pdf) Patient Educated with: RICE THERAPY.pdf (RICE THERAPY.pdf) Pending Test Test Name Order Date 97661-DCHDIST NAIL, 6 OR MORE 11/08/2023 Next Appt Details Follow Up: 3 Months, Reason: Provider Name:Irais Prieto , 07/13/2024 03:00:00 PM, [address] [place] [address], [id number], Procedure Notes * Category Sub-Category Detail Notes Debride Nail 6-10 Nail debridement Nail debridem ent performed extensively to reduce/remove overall nail length, girth, thickness, subungual debris, and necrotic tissue, by manual and electrical means through the use of a nail nipper and/or dremel, to more viable healthy nail plate or bed tissue 1-5. Silver nitrate used for any petechial bleeding as necessary. Patient chooses, no pharmaceutical tx (91126) Progress Notes * Maria Ines KAM ADOB:[birth year] (83 yo F)Acc No.[id number]:11/08/2023 Progress Notes Patient:?Maria Ines Kam Provider:?Irais Prieto DPM :1940???Age:83 Y???Sex:Female D ate:11/08/2023 Address:[id number] Pcp:Vito Joel MD Subjective: * Chief Complaints: * ???pcp: 07/2023Heel painPain ful nail(s) aggrevated by shoes causing difficulty standing/walking * HPI: ???Heel pain:?Nature:?tenderness, sharp pain, stiffness.?Location:?Proximal plantar aspect of Heel , B/L.?Duration:?several months.?Course:?worse.?Aggrevated:?standing, walking, walking first thing in the morning/after rest.?Treatments:?rest/alter normal daily activity.?Painful Nails:?Pt States Last PCP Visit:?Date:?07/06/2023 * ROS:?General/Constitutional:?Nausea?denies.?Vomiting?denies.?Hunger Thirst?denies.?Loss appetite?denies.?Chills?denies.?Fatigue?denies.?Fever?denies.?Night Sweats?denies.?Unexplained weight loss?denies.?Unexplained weight gain?denies.?HEENTM:?Dentures?denies.?Dizziness?denies.?Glasses/contacts?admits.?Retinopathy?de nies.?Blurred/double vision?denies.?TMJ?denies.?Discharge/drainage?denies.?Implants?denies.?Sore throat?denies.?Dental implants?denies.?Hard of hearing ?admits.?Difficulty chewing/swallowing/speaking?denies.?Nose bleeds?denies.?Sore mouth?denies.?Respiratory:?On Oxygen?denies.?Pneumonia/pleurisy?denies.?Bronchitis?denies.?Emphysema?denies.?C oughing?denies.?Cough blood?denies.?Shortness of breath?admits.?Wheezing?denies.?Cardiovascular:?Pacemaker?denies.?MVP?denies.?WPW?denies.?CHF?denies.?Heart attack?denies.?Septal defect?denies.?Rapid beat?denies.?Chest pain ?denies.?Atrial Fib.?denies.?Murmur/Palpitations?denies.?Gastrointestinal:?Hemorrhoids?denies.?Stomach/Abdominal pain?denies.?Dark blood stool?denies.?Irritable bowel ?denies.?Constipation?denies.?Diarrhea?denies.?Hematology:?Swelling?denies.?Clots?denies.?Varicose Veins?denies.?Bruising?denies.?Bleeding problem?denies.?Genitourinary:?Blood urine?denies.?Frequent/Painfu/urination/bladder control?denies.?Kidney stones?denies.?Infection (UTI)?denies.?Nephropathy?denies.?sex trans dis (STD)?denies.?Prostate?denies.?Musculoskeletal:?Hammertoes?denies.?Bunions?denies.?Back Pain?admits.?Muscle Cramps/ Resting?denies.?Muscle cramps / walking?denies.?Generalized aches and pains?denies.?Weakness?denies.?Integ.:?[place]?denies.?Scars?denies.?Corns/calluses?denies.?Ingrown nails?admits.?Painful nails?denies.?Open Sores?denies.?Rashes?denies.?Neurologic:?Difficulty sleeping?denies.?Brain disorder?denies.?Numbness?denies.?Balance trouble?denies.?Confusion?denies.?Fainting/blackouts?denies.?Tingling?denies.?Tr emors?denies.? * Medical History:? * Surgical History:?historecto my left and right hip replacement [id number] * Hospitalization/Major Diagno stic Procedure:?Denies Past Hospitalization * Family History:?Mother: dece ased, cancer, arthritis, stroke, heart attack, high blood pressure.?Father: , diabetes, cancer, foot problems, heart attack, high blood pressure.?Maternal Grand Mother: cancer.? * Social History:?Tobacco Use:?Tobacco Use/Smoking?Are you a:?nonsmoker ?Additional Findings: Tobacco Non-User?Current non-smoker ?Tobacco use other than smoking?Are you an other tobacco user??No ???Drugs/Alcohol:?Drugs?Have you used drugs other than those for medical reasons in the past 12 months??No ?Alcohol Screen?Did you have a drink containing alcohol in the past year??Yes ?Points?0 ?Interpretation?Negative ???Miscellaneous:?Caffeine: yes, 2-3 cups per day. ?no Children. ?no Exercise. ?Marital status: . 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 * Medications:?TakingLisinopri l 10 MG Tablet 1 tablet Orally Once a dayAtorvastatin Calcium 80 MG Tablet Oral Aspirin 75 MG Tablet Chewable 1 tablet Orally Once a daycarBAMazepine 200 MG Tablet 1 tablet Orally Twice a dayTaking Lisinopril 10 MG Tablet 1 tablet Orally Once a dayTaking Atorvastatin Calcium 80 MG Tablet Oral Taking Aspirin 75 MG Tablet Chewable 1 tablet Orally Once a dayTaking carBAMazepine 200 MG Tablet 1 tablet Orally Twice a dayUnknownLipitor 80 MG Tablet 1 tablet Orally Once a dayPrinivil 10 MG Tablet 1 tablet Orally Once a dayTEGretol 100 MG/5ML Suspension 5 ml Orally Three times a dayMedication List reviewed and reconciled with the patientUnknown Lipitor 80 MG Tablet 1 tablet Orally Once a dayUnknown Prinivil 10 MG Tablet 1 tablet Orally Once a dayUnknown TEGretol 100 MG/5ML Suspension 5 ml Orally Three times a dayMedication List reviewed and reconciled with the patient * Allergies:?N.K.D.A.yes[Aller gies Verified] Objective: * Vitals:?Ht: 5 ft 5 in, Wt: 1 80, BMI: 29.95, Shoe size: 10, Ht-cm: 165.1 cm, Wt- k.65 kg. * Examination: ???General Examination: ?GENERAL APPEARANCE:?Reveals a pleasant, alert, well nourished, well- developed, well hydrated individual, who demonstrates proper attention to hygiene/body habitus, and is in no acute distress, Pt serves as own historian for office visit today.?ORIENTED:?person, place, and time.?Heel Pain: ?INSPECTION REVEALS:?Pain on Palpation to Plantar Fascia med. and central bands, intrinsic musc., infra-calcaneal bursa, and med calc tubercle, B/L, No pain: posterior/superior heel, achilles bursa/tendon, sinus tarsi, peroneals, or with lateral heel compression; no limited STJ ROM, calor, or ecchymosis , B/L.?Orthopedic: ?MUSCLE STRENGTH:?Generalized decrease in strength , B/L , Decreased with DF.?GAIT ABNORMALITY:? antalgic, Pronated, abducted angle and base of gate, B/L.?FOOT MORPHOLOGY:? Pes Planus structure, Decreased Ankle joint dorsiflexion ROM, knee extended.?BUNION:?Medially prominent 1st MPJ , B/L.?DIGITAL DEFORMITIES:?Digital contracture, PIPJ, 2-5 B/L, incompl-reducible with WB, or to push-up test, no over, nor underlapping.?FOOTWEAR:?good condition, exhibit proper fit and accommodation for pedal deformities. OT were inspected and noted to be? in good condition giving proper support at the present time.?Neurological: ?SENSORY:?Neurological exam reveals intact sensorium, pain sensation normal, vibration sensation intact, pinprick sensation is normal in the lower extremities, Pt denies, anesthesia, burning, paresthesia, tingling, B/L.?TINEL'S COMPRESSION:?Negative tarsal tunnel, dayday pedis, and medial calcaneal nerves.?Nails: ?NAILS are:?Elongated, overgrown, dystrophic, lytic, greater than 3mm thick, discolored and friable with crumbly malodorous subungual debris, with pain on palpation , T1 , T2 , T3 , T6 , T7 , T8.?Vascular: ?DP PULSES:?2/4, B/L.?PT PULSES:?2/4, B/L.?CAPILLARY FILL TIME:?immediate, all digits, B/L.?SKIN TEMPERTURE GRADIENT OF THE LOWER EXTERMITIES:?normal, warm to cool, proximal to distal, B/L, B/L.?HAIR GROWTH/TEXTURE/ELASTICITY/TURGOR:?normal, B/L.?PIGMENTATION:?normal, B/L.?X-Rays - IMAGING REPORT: ?Clinical Indication(s):? Evaluate for Fracture, Evaluate Biomechanical Deformity.?Views:?3 views of Foot, LAT, LO, MO , B/L.?Findings:?severe generalized decrease in bone density , dorsal degenerative changes of the tarsal joints , asymmetrical Ankle joint space narrowing , anteriorly , posteriorly.?Fracture:?Negative fractures identified.? Assessment: * Assessment: 1.?Pain in right foot - M79. 671?2.?Calcaneal spur, right foot - M77.31?3.?Plantar fasciitis, bilateral - M72.2 (Primary), Acute problem, Complicated w/ Multiple Tx Options(4),Dx New problem, Prognosis Uncertain (4)?4.?Other myositis of right foot - M60.871?5.?Bursitis of right foot - M77.51?6.?Pain in left foot - M79.672?7.?Other myositis of left foot - M60.872?8.?Bursitis of left foot - M77.52?9.?Tinea unguium - B35.1?10.?Pain in right toe(s) - M79.674?11.?Pain in left toe(s) - M79.675?12.?Osteoarthritis of left ankle and foot - M19.072?13.?Osteoarthritis of right ankle and foot - M19.071? Plan: * Treatment: 2.?Pain in right foot?Imaging: X ray : Foot, right 3V?See Examination above 3.?Pain in left foot?Imaging: X ray : Foot, left 3V?See Examination above 4.?Tinea unguium?Procedure: 32819-VUIUBSX NAIL, 6 OR MORE * Procedures:?Debride Nail 6-10:?Nail debridement?Nail debridement performed extensively to reduce/remove overall nail length, girth, thickness, subungual debris, and necrotic tissue, by manual and electrical means through the use of a nail nipper and/or dremel, to more viable healthy nail plate or bed tissue 1-5. Silver nitrate used for any petechial bleeding as necessary. Patient chooses, no pharmaceutical tx (37796).? * Procedure Codes:?72625 DEBRI DE NAIL, 6 OR MORE, Modifiers: XS 43962 X-RAY EXAM OF RIGHT FOOT 3V, Modifiers: 26 , [id number] X-RAY EXAM OF LEFT FOOT 3V, Modifiers: 26 , LT * Preventive Medicine:? ??Counseling:?Discussion:?-04: Office or other outpatient visit for the evaluation and management of a new patient, which required a medically appropriate history and/or examination and MODERATE level of DECISION MAKING for: 1 OR MORE CHRONIC PROBLEM(S) THATS WORSENING, 2 STABLE CHRONIC PROBLEMS, A NEWLY DIAGNOSED PROBLEM WITH UNCERTAIN PROGNOSIS, AN ACUTE COMPLICATED INJURY WITH MULTIPLE TREATMENT OPTIONS, OR AN ACUTE PROBLEM WITH ACCOMPANYING SYSTEMIC SYMPTOMS, THAT POSE(S) A MODERATE RISK OF MORBIDITY. THIS CONDITION MAY ALSO INCLUDE RX DRUG MANAGEMENT, OR A DECISON FOR MINOR SURGERY. The visit on the day of the encounter encompassed interpreting the data and educating the patient as to the nature of their condition, treatment options available according to their individual PMH, meds, allergies, and overall health/living conditions, as well as any potential risks or complications that may occur from a failure to adhere to, and participate in, the recommended course of therapy. The discussion included a complete verbal, and/or written explanation of the examination results, any x-rays taken, the proposed diagnosis, and outline of the treatment plan. A schedule for future care needs was also explained. The patient verbalized an understanding of the instructions at this time and agreed to be an active participant in their treatment. If the patient should think of any questions or concerns after the visit, I have encouraged the patient to call the office.?Arthritis:?The patient was counseled on the various etiologies for their Arthritis including genetic, history of injury or trauma, abnormal foot biomechanics leading to excessive joint wear, and use/overuse. We discussed the various treatment options from no treatment, to topical analgesics such as Biofreeze gel, Aspercream, Voltaren gel, Lidoderm patches, CBD oils, THC creams, and Custom-compounded topical cream preparations to natural oral products such as Glucosamine Sulfate/Chondroitin/MSM/Collegen to analgesic Tylenol, to anti-inflammatory medications such as Ibuprofen/Naproxen, and the use of oral steroids if needed. Cardiac, Kidney, and GI issues were discussed RE: potential complications of oral anti-inflammatories. We discussed several other treatment options consisting of accom shoes, supportive innersoles, AFO bracing/support, cortisone injection therapy, and surgical resection of the arthritic joint(s) or fusion reconstruction if necessary. We discussed the advantages and disadvantages of conservative (vs) surgical treamtents including pain relief, improved function/activities of daily life, return to exercise to failure, expense, systemic complications, infection, [id number], prolongued postop course. Patient questions re: the various treatment options available, their successes and potential failures, and exterminator effects were discussed and the answers were verbally confirmed understood, The Pt. was counseled on the x-rays,treatment options, and the importance of following all homecare instructions, Recommended Topical analgesics including Biofreeze/Aspercream/Voltaren gel.?Heel pain:?FASCIITIS: I explained to the patient the possible etiologies of Plantar Fasciitis including foot type/shoegear/activity level/exercise routine and the risks/benefits of all the different treatment options for heel pain including: No treatment at all, Rest, Ice, NSAIDs(only if well tolerated after meals), New/supportive Shoegear, Strappings and Tapings, Stretching exercises, Deep Tissue Massage, Heel cups/cushions, Arch support/shoe inserts, Custom orthoses, Topical analgesics including Aspercream/Voltaren gel, Night splint AFO for am stiffness, Cortisone injection therapy, Cast boot with crutches/cane/or walker for assisted ambulation, Physical Therapy, EPAT/ESWT, Interfil injection therapy, as well as surgical [place]/Endoscopic Fasciitomy surgical procedures if needed. Recommendations were made to limit barefoot walking, eliminate wearing nonsupportive shoegear (i.e. flip-flops or sandals, or a shoe with an easily bendable, foldable, or twistable sole) and wear shoegear with a good solid sole, a supportive arch, and plenty of room for an insert/orthotic if necessary. If wearing sandals was required by the patient, we recommended orthopedic sandals such as Orthoheel or Birkenstock even while in the home. If the patient wore heels in the past, we recommended they continue, but eliminate the use of flats. The advantages and disadvantages of each option were discussed and the patients questions re: types of shoegear, custom vs prefabricated inserts, activity level, PO vs Topical medications (and their respective potential complications/drug interactions/side effects), and consistency in home treatment regimens for optimal success were answered to their satisfaction. Literature detailing plantar fasciitis and the various treatment options were dispensed and reviewed, Stretching exercises for the patients injury/diagnosis were discussed and demonstrated, Handouts were also given.? * Follow Up:?3 Months * Images: * Sign off status: Completed true * Provider:?Irais Prieto DPM Date:?2023 Generated for Chey winslow/Sofie/Ez on:?07/06/2024 11:33 AM EST History and Physical Notes * HPI (History of Present Illness) Category Sub-Category Detail Notes Category Not es Heel pain Duration: several months Nature: tenderness, sharp pa in, stiffness Location: Proximal plantar asp ect of Heel , B/L Aggravated: standing, walking, w alking first thing in the morning/after rest Course: worse Treatments: rest/alter normal da pham activity Painful Nails Pt States Last PCP Visit: Date:: 07/06/2023 Examination Category Sub-Category Detail Notes Category Not es Heel Pain INSPECTION REVEALS: Pain on Palp ation to Plantar Fascia med. and central bands, intrinsic musc., infra-calcaneal bursa, and med calc tubercle, B/L, No pain: posterior/superior heel, achilles bursa/tendon, sinus tarsi, peroneals, or with lateral heel compression; no limited STJ ROM, calor, or ecchymosis , B/L Neurological SENSORY: Neurological exa m reveals intact sensorium, pain sensation normal, vibration sensation intact, pinprick sensation is normal in the lower extremities, Pt denies, anesthesia, burning, paresthesia, tingling, B/L TINEL'S COMPRESSION: Negative tarsal ward charli, dayday pedis, and medial calcaneal nerves Orthopedic GAIT ABNORMALITY: antalgic, Pron ated, abducted angle and base of gate, B/L FOOT MORPHOLOGY: Pes Planus structure , Decreased Ankle joint dorsiflexion ROM, knee extended BUNION: Medially prominent 1 st MPJ , B/L FOOTWEAR: good condition, exhi bit proper fit and accommodation for pedal deformities. OT were inspected and noted to be in good condition giving proper support at the present time DIGITAL DEFORMITIES: Digital contracture , PIPJ, 2-5 B/L, incompl-reducible with WB, or to push-up test, no over, nor underlapping MUSCLE STRENGTH: Generalized decrease in strength , B/L , Decreased with DF General Examination GENERAL APPEARANCE: Reveals a pleasant, alert, well nourished, well-developed, well hydrated individual, who demonstrates proper attention to hygiene/body habitus, and is in no acute distress, Pt serves as own historian for office visit today ORIENTED: person, place, and t selma Vascular DP PULSES (B): 2/4, B/L PT PULSES (B): 2/4, B/L CAPILLARY FILL TIME: immediate, all digi ts, B/L TEMPERTURE GRADIENT (C): normal, warm to cool, proximal to distal, B/L, B/L TROPHIC CONDITION-TEXTURE/ELASTICITY/TURGOR/HAIR GROWTH (B): normal, B/L PIGMENTATION: normal, B/L Nails NAILS are: Elongated, overg rown, dystrophic, lytic, greater than 3mm thick, discolored and friable with crumbly malodorous subungual debris, with pain on palpation , T1 , T2 , T3 , T6 , T7 , T8 X-Rays - IMAGING REPORT Findings: severe g eneralized decrease in bone density , dorsal degenerative changes of the tarsal joints , asymmetrical Ankle joint space narrowing , anteriorly , posteriorly Fracture: Negative fractures i dentified Views: 3 views of Foot, LAT , LO, MO , B/L Clinical Indication(s): Evaluate for Fra cture, Evaluate Biomechanical Deformity
--- OUTSIDE RECORDS SUMMARY | 2024-07-06 11:33 | XMS_ITS ---
Author Organization [facility] Address [address] [place] [address] Care Team Providers Care Printing Grey Cloth Tender Name Role Phone Vito Joel MD Primary Care Provider Irais Mcghee Unavailable [phone] Allergies No Known Allergies REASON FOR VISIT Heel pain, Painful nail(s) aggrevated by shoes [...] 1 tablet Orally Once a day Not-Taking carBAMazepine 200 MG 1 tablet Orally Twi ce a day Active Aspirin 75 MG 1 tablet Orally [...] Are you an other tobacco user? No Vital Signs Height 5 ft 5 in in 03/13/2024 Weight 180 lbs 03/13/2024 BMI 29.95 kg/m2 03/13/2024 Procedures Procedure Date Ordered Date Performed Result Body Sit e 78661-RUROGPL NAIL, 6 OR MORE 03/13/2024 N/A Encounters Encounter Location Date Provider Diagnosis [facility] [place] [address] [place] [address] 03/13/2024 Irais Prieto Pain in right foot [...] M79.674 and Pain in left toe(s) M79.675 Assessments Encounter Date Diagnosis (ICD Code) Assessment Notes Treatment Notes Treatment Clinical Notes Section Notes 03/13/2024 Pain in right foot (ICD-10 - M79.671) 03/13/2024 Plantar fasciitis, bilateral (ICD-10 - M72.2) 03/13/2024 Calcaneal spur, right foot (ICD-10 - M77.31) 03/13/2024 Other myositis of right foot (ICD-10 - M60.871) 03/13/2024 Bursitis of right foot (ICD-10 - M77.51) 03/13/2024 Pain in left foot (ICD-10 - M79.672) 03/13/2024 Other myositis of left foot (ICD-10 - M60.872) 03/13/2024 Bursitis of left foot (ICD-10 - M77.52) 03/13/2024 Tinea unguium (ICD-10 - B35.1) 03/13/2024 Pain in right toe(s) (ICD-10 - M79.674) 03/13/2024 Pain in left toe(s) (ICD-10 - M79.675) Plan Of Treatment Pending Test Test Name Order Date 78151-QESUDYC NAIL, 6 OR MORE 03/13/2024 Next Appt Details Follow Up: prn, Reason: Provider Name:Irais Prieto , 07/13/2024 03:00:00 PM, [address] [place], [address], Procedure Notes * Category Sub-Category Detail Notes [...] as necessary. Patient chooses, no pharmaceutical tx (81057) Progress Notes * KAMMaria Ines ADOB:[birth year] (84 yo F)Acc No.[id number]:03/13/2024 Progress Note Patient:?Maria Ines Kam Provider:?Irais PrietoEVON :1940???Age:84 Y???Sex:Female D ate:03/13/2024 Address:[address] [place], [place] [phone] Pcp:Vito Joel MD Subjective: * Chief Complaints: * ???Heel painPainful nail(s) aggrevated by shoes causing difficulty standing/walking * HPI: ???Heel pain:?Nature:?tenderness, sharp pain, stiffness.?Location:?Proximal plantar aspect of Heel , B/L.?Duration:?several months.?Course:?improved , at approximately 70%.?Aggravated:?standing, walking, walking first thing in the morning/after rest.?Treatments:?rest/alter normal daily activity , stretching , AFO- nightsplint , pre-fabricated orthoses.?Painful Nails:?Pt States Last PCP Visit:?Date:?01/12/2024 * ROS:?General/Constitutional:?Nausea?denies.?Vomiting?denies.?Hunger Thirst?denies.?Loss appetite?denies.?Chills?denies.?Fatigue?denies.?Fever?denies.?Night Sweats?denies.?Unexplained weight loss?denies.?Unexplained [...] History:?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 ?no Children, foster children. ?Exercise: yes, golf. ?Marital status: . 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 * [...] MG Tablet 1 tablet Orally Twice a dayNot-Taking/PRNNight Splint AFO - L1930 1 wear at restLipitor 80 MG Tablet 1 tablet Orally Once a dayPrinivil 10 MG Tablet 1 tablet Orally Once a dayTEGretol 100 MG/5ML Suspension 5 ml Orally Three times a dayMedication List reviewed and reconciled with the patientNot-Taking/PRN Night Splint AFO - L1930 1 wear at restNot-Taking/PRN Lipitor 80 MG Tablet 1 tablet Orally Once a dayNot-Taking/PRN Prinivil 10 MG Tablet 1 tablet Orally Once a dayNot-Taking/PRN TEGretol 100 MG/5ML Suspension 5 ml Orally Three times a dayMedication List reviewed and reconciled with the patient * Allergies:?N.K.D.A.yes[Aller gies Verified] Objective: * Vitals:?Ht: 5 ft 5 in, Wt: 1 80, BMI: 29.95, Shoe size: 10, Ht-cm: 165.1 cm, Wt- k.65 kg. * Examination: ???Heel Pain: ?INSPECTION REVEALS:?Pain on Palpation to Plantar Fascia med. and central bands, intrinsic musc., infra-calcaneal bursa, and med calc tubercle, B/L, No pain: posterior/superior heel, achilles bursa/tendon, sinus tarsi, peroneals, or with lateral heel compression; no limited STJ ROM, calor, or ecchymosis , B/L , States approximately 70 % LESS.?Orthopedic: ?FOOTWEAR:?good condition, exhibit proper fit and accommodation for pedal deformities. OT were inspected and noted to be? in good condition giving proper support at the present time.?Neurological: ?SENSORY:?Neurological exam reveals intact sensorium, pain sensation normal, vibration sensation intact, pinprick sensation is normal in the lower extremities, Pt denies, anesthesia, burning, paresthesia, tingling, B/L.?Nails: ?NAILS are:?Elongated, overgrown, dystrophic, lytic, greater than 3mm thick, discolored and friable with crumbly malodorous subungual debris, with pain on palpation , T1 , T2 , T3 , T6 , T7 , T8.?Vascular: ?DP PULSES:?2/4, B/L.?PT PULSES:?2/4, B/L.? Assessment: * Assessment: 1.?Pain in right foot - M79. 671?2.?Plantar fasciitis, bilateral - M72.2 (Primary), Response to treatment - Improvement?3.?Calcaneal spur, right foot - M77.31?4.?Other myositis of right foot - M60.871?5.?Bursitis of right foot - M77.51?6.?Pain in left foot - M79.672?7.?Other myositis of left foot - M60.872?8.?Bursitis of left foot - M77.52?9.?Tinea unguium - B35.1?10.?Pain in right toe(s) - M79.674?11.?Pain in left toe(s) - M79.675? Plan: * Treatment: * Procedures:?Debride Nail 6-10:?Nail debridement?Nail debridement performed extensively to reduce/remove overall nail length, girth, thickness, subungual debris, and necrotic tissue, by manual and electrical means through the use of a nail nipper and/or dremel, to more viable healthy nail plate or bed tissue 1-5. Silver nitrate used for any petechial bleeding as necessary. Patient chooses, no pharmaceutical tx (51809).? * Procedure Codes:?01788 DEBRI DE NAIL, 6 OR MORE, Modifiers: XS * Preventive Medicine:? ??Counseling:?Discussion:?-13: Office or other outpatient visit for the evaluation and management of an established patient, which required a medically appropriate history and/or examination and LOW level of DECISION MAKING for: 1 STABLE ACUTE UNCOMPLICATED PROBLEM, 2 OR MORE MINOR PROBLEMS, OR 1 STABLE CHRONIC PROBLEM, THAT POSE(S) A LOW RISK FOR MORBIDITY/MORTALITY. The visit on the day of the [...] have encouraged the patient to call the office.? * Follow Up:?prn * Images: * Sign off status: Completed [...] first thing in the morning/after rest Course: improved , at approx imately 70% Treatments: rest/alter normal da pham activity , stretching , AFO-nightsplint , pre-fabricated orthoses Painful Nails Pt States Last PCP Visit: Date:: 01/12/2024 Examination Category Sub-Category Detail Notes Category Not es Heel Pain INSPECTION REVEALS: Pain on Palp ation to Plantar Fascia med. and central bands, intrinsic musc., infra-calcaneal bursa, and med calc tubercle, B/L, No pain: posterior/superior heel, achilles bursa/tendon, sinus tarsi, peroneals, or with lateral heel compression; no limited STJ ROM, calor, or ecchymosis , B/L , States approximately 70 % LESS Neurological SENSORY: Neurological exa m reveals intact sensorium, pain sensation normal, vibration sensation intact, pinprick sensation is normal in the lower extremities, Pt denies, anesthesia, burning, paresthesia, tingling, B/L Orthopedic FOOTWEAR: good condition, exhibit proper fit and accommodation for pedal deformities. OT were inspected and noted to be in good condition giving proper support at the present time Vascular DP PULSES (B): 2/4, B/L PT PULSES (B): 2/4, B/L Nails NAILS are: Elongated, overg rown, dystrophic, lytic, greater than 3mm thick, discolored and friable with crumbly malodorous subungual debris, with pain on palpation , T1 , T2 , T3 , T6 , T7 , T8
== END 2024-07-06 11:34 | disposition home or self-care (01) ==
PROVIDERS: PCP Internal Medicine; Visit Provider Physical Medicine & Rehabilitation
DX: G57.01 Lesion of sciatic nerve, right lower limb (principal); M47.816 Spondylosis without myelopathy or radiculopathy, lumbar region
CPT/HCPCS: 99213

== ENCOUNTER 2024-07-06 10:55 | Outpatient (REF) | payer OTHER, SELFPAY ==
[2024-07-06 10:58] LABS: MANUAL DIFF FLAG NO
[2024-07-06 11:46] LABS: Basophils Percent Auto 0.5 % (0-2); Eosinophils Absolute Auto 0.1 X10*3/uL (0.0-0.4); Eosinophils Percent Auto 1.7 % (0-4); Hematocrit 41.1 % (37.0-47.0); Hemoglobin 13.6 g/dl (12.0-16.0); Imm Gran Abs Auto 0.01 X10*3/uL (0.00-0.03); Imm Gran Pct Auto 0.2 % (0.0-0.4); Lymphocytes Absolute Auto 1.4 X10*3/uL (1.2-4.9); Lymphocytes Percent Auto 23.9 % (20-40); Mean Corpuscular HGB Conc 33.1 g/dl (31.0-35.0); Mean Corpuscular Hemoglobin 29.1 pg (27.0-33.0); Mean Platelet Volume 10.1 fL (9.4-12.3); Monocytes Absolute Auto 0.9 X10*3/uL (0.1-1.2); Monocytes Percent Auto 15.3 % (2-11); Neutrophils Absolute Auto 3.5 x10*3/uL (2.0-8.3); Neutrophils Percent Auto 58.4 % (45-73); Platelet Count 284 X10*3/uL (160-400); Red Blood Count 4.67 X10*6/uL (4.20-5.50); Red Cell Distribution Width 13.3 % (11.0-16.0); White Blood Count 5.9 X10*3/uL (4.8-10.8)
[2024-07-06 11:52] LABS: Appearance Urine Clear; Color Urine Yellow; Glucose Urine UA Negative (Negative); Leukocyte Esterase Urine Moderate (2+) (Negative); Nitrite Urine Negative (Negative); UMIC TRIGGER UACC YES; Urine Blood Small (1+) (Negative); Urine Ketones Negative (Negative); Urine Protein Negative (Neg-Trace)
[2024-07-06 11:54] LABS: Estimated Average Glucose 114 mg/dL; Hemoglobin A1C 130.2468 umol/L; Hemoglobin A1c % 5.6 % (<6.0); Total Hemoglobin (HGBA1C) 3461.4029 umol/L
[2024-07-06 12:09] LABS: Creatinine Urine 67.54 mg/dL
[2024-07-06 12:10] LABS: Bacteria Urine 1+ (None Seen); Hyaline Casts Urine 0-2 /LPF (0-2); UACC Culture Trigger YES
[2024-07-06 12:19] LABS: Alanine Aminotransferase 19 U/L (0-31); Albumin Level 3.9 g/dL (3.5-5.0); Alkaline Phosphatase 108 U/L (39-117); Anion Gap 10 (12-20); Aspartate Amino Transferase 24 U/L (5-31); Bilirubin Total 0.3 mg/dL (0.0-1.0); Blood Urea Nitrogen 13 mg/dL (9-16); Calcium 8.9 mg/dL (8.4-10.2); Carbon Dioxide 28 mmol/L (22-29); Chloride 101 mmol/L (96-108); Cholesterol 162 mg/dL (<200); Estimated Glomerular Filt Rate > 60; Glucose Fasting 96 mg/dL (60-99); HDL Cholesterol 52 mg/dL (>40); LDL Cholesterol Calculated 94 mg/dL (<100); Potassium 4.1 mmol/L (3.3-5.1); Sodium 135 mmol/L (135-145); Total Protein 6.4 g/dL (6.5-8.0); Triglycerides 81 mg/dL (<150)
== END 2024-07-06 10:56 | disposition home or self-care (01) ==
LOC: HO.LNP 10:55
PROVIDERS: Visit Provider Internal Medicine
DX: Z00.00 Encounter for general adult medical examination without abnormal findings (principal); I10 Essential (primary) hypertension; R73.03 Prediabetes; E78.00 Pure hypercholesterolemia, unspecified
CPT/HCPCS: 80053; 80061; 81001; 81003; 82043; 82570; 83036; 85025; 87086; 87088; 87186

== ENCOUNTER 2024-09-06 11:12 | Outpatient (REF) | payer OTHER, SELFPAY ==
--- OUTSIDE RECORDS SUMMARY | 2024-09-06 13:30 | XMS_ITS ---
Author Organization Vito Jeol MD Address [address] [place] [phone] Care Team Providers Care Service Center Technician Name Role Phone Vito Joel Primary Care Provider Medications Medication SIG (Take, Route, Fr equency, Duration) Notes Start Date End Date Status Cephalexin 500 MG 1 capsule Orally twi ce a day for 5 days 07/11/2024 Active Encounters Encounter Location Date Provider Diagnosis Vito Joel MD [address] [facility] [address] [place] [phone] 07/11/2024 Vito Joel Plan Of Treatment Medication Medication Name Sig Start Date Stop Date Notes Cephalexin 500 MG 1 capsule Orally twice a day for 5 days 07/11/2024 Next Appt Details Provider Name:Vito romero, 01/09/2025 08:00:00 AM, [address] [facility], Suite [facility], [place], [place], [phone], Provider Name:Vito romero, 01/16/2025 10:00:00 AM, [address] [place] [address], Suite [facility], [place], [place], [phone], Provider Name:Vito romero, 07/10/2025 08:00:00 AM, [address], [address], [place], [place], [phone], Provider Name:Vito Johnson nick, 07/17/2025 01:00:00 PM, [address] [facility], [address], [place], [place], [phone], Progress Notes * Maria Ines KAM ADOB:[birth year] (84 yo F)Acc No.[id number]:07/11/2024 Patient:?Maria Ines Kam :1940???Age:84 Y???Sex:Female Address:[address] [place] [address] * Refills? Start Cephalexin Capsule, 500 MG, Orally, 10 Capsule, 1 capsule, twice a day, 5 days * true * Date:? Generated for Chey winslow/Sofie/eTpeytonsmitting on:?09/06/2024 01:30 PM EST
--- OUTSIDE RECORDS SUMMARY | 2024-09-06 13:30 | XMS_ITS ---
Author Organization Vito Joel MD Address [address] [place], [place] [phone] Care Team Providers Care Pull Up Hand Name Role Phone Vito Joel Primary Care Provider [phone] Results Component Value Reference Range Notes Complete Blood Count Auto Di ff Reviewed date:07/06/2024 01:41:47 PM Interpretation: Performing Lab:[facility], [address] [place] [phone] Notes/Report: White Blood Count 5.9 4.8-10.8 X10*3/uL Red Blood Count 4.67 4.20-5.50 X10*6/uL Hemoglobin 13.6 12.0-16.0 g/dl Hematocrit 41.1 37.0-47.0 % Mean Corpuscular Volume 88.0 80.0-98.0 fL Mean Corpuscular Hemoglobin 29.1 27.0-33.0 pg Mean Corpuscular HGB Conc 33.1 31.0-35.0 g/dl Red Cell Distribution Width 13.3 11.0-16.0 % Platelet Count 284 160-400 X10*3/uL Mean Platelet Volume 10.1 9.4-12.3 fL Neutrophils Percent Auto 58.4 45-73 % Imm Gran Pct Auto 0.2 0.0-0.4 % Lymphocytes Percent Auto 23.9 20-40 % Monocytes Percent Auto 15.3 2-11 % Eosinophils Percent Auto 1.7 0-4 % Basophils Percent Auto 0.5 0-2 % NRBC Pct Auto 0.0 0.0-0.2 /100WBC Neutrophils Absolute Auto 3.5 2.0-8.3 x10*3/u L Imm Gran Abs Auto 0.01 0.00-0.03 X10*3/uL Lymphocytes Absolute Auto 1.4 1.2-4.9 X10*3/u L Monocytes Absolute Auto 0.9 0.1-1.2 X10*3/uL Eosinophils Absolute Auto 0.1 0.0-0.4 X10*3/u L Basophils Absolute Auto 0.0 0.0-0.2 X10*3/uL NRBC Abs Auto 0.000 0.0-0.012 X10*3/uL Comprehensive [facility]. Panel Fa st Reviewed date:07/06/2024 01:53:50 PM Interpretation: Performing Lab:[address] [phone] Notes/Report: Sodium 135 135-145 mmol/L Potassium 4.1 3.3-5.1 mmol/L Chloride 101 96-108 mmol/L Carbon Dioxide 28 22-29 mmol/L Anion Gap 10 12-20 Blood Urea Nitrogen 13 9-16 mg/dL Creatinine 0.68 0.5-1.4 mg/dL Estimated Glomerular Filt Rate > 60 Chronic Kidney Disease: Estimated GFR < 60 mL/min/1.73m2 Severe Kidney Disease: Estimated GFR < 15 mL/min/1.73m2 Glucose Fasting 96 60-99 mg/dL Calcium 8.9 8.4-10.2 mg/dL Bilirubin Total 0.3 0.0-1.0 mg/dL Aspartate Amino Transferase 24 5-31 U/L Alanine Aminotransferase 19 0-31 U/L Total Protein 6.4 6.5-8.0 g/dL Albumin Level 3.9 3.5-5.0 g/dL Alkaline Phosphatase 108 39-117 U/L Lipid Panel Reviewed date:07/06/2024 01:43:16 PM Interpretation: Performing Lab:[address] [phone] Notes/Report: Triglycerides 81 <150 mg/dL Desirable Triglyceride: less than 150 mg/dL Borderline High Triglyceride 150-199 mg/dL High Triglyceride: 200-499 mg/dL Very High Triglyceride: greater than or equal to 5OO mg/dL Cholesterol 162 <200 mg/dL Desirable Cholesterol: less than 200 mg/dL Borderline High Cholesterol: 200-239 mg/dL High Cholesterol: greater than 239 mg/dL LDL Cholesterol Calculated 94 <100 mg/dL Desirable LDL: less than 100 mg/dL Near Optimal/Above Optimal LDL: 110-129 mg/dL Borderline High LDL: 130-159 mg/dL High LDL: 160-189 mg/dL Very High LDL: greater than or equal to 190 mg/dL HDL Cholesterol 52 >40 mg/dL Desirable HDL: greater than 40 mg/dL Note: This HDL assay may give artificially low results in patients with liver disease. Microalbumin, Random Reviewed date:07/06/2024 01:41:54 PM Interpretation: Performing Lab:[facility], [address] [place] [phone] Notes/Report: Creatinine Urine 67.54 Microalbumin Urine 25.0 Microalbum/Creatinine Ratio Ur 37.0 <30 ug/mg cr Albumin/Creatinine Ratio Reference Ranges: Normal: < 30 ug/mg creatinine Microalbuminuria: 30 - 300 ug/mg creatinine Clinical Albuminuria: > 300 ug/mg creatinine Hemoglobin A1c Reviewed date:07/06/2024 01:43:25 PM Interpretation: Performing Lab:[facility], [address] [place] [phone] Notes/Report: Hemoglobin A1c % 5.6 <6.0 % Hemoglobin A1C Reference Range Adults: 4.8 - 6.0 % Non diabetic: < 6.0 % Goal: < 7.0 % Additional Action Suggested: > 8.0 % Note: Hemoglobin A1c results are invalid for patients with abnormal amounts of HbF. Blood transfusions may impact the HbA1c concentration in the patient sample. Estimated Average Glucose 114 eAG = Estimated average glucose which is %A1C expressed as average glucose, using the formula of the P3O-Yejwkvu Average Glucose study (ADAG), Diabetes Care, Vol.31,#8, Feb. 2007 UA ClnCatch+Micro w/rflx Cul t Reviewed date:07/13/2024 11:30:15 AM Interpretation:CBACK 07/13/24 Performing Lab:[facility], [address] [place] [address] Notes/Report: Urine, Clean Catch Color Urine Yellow Appearance Urine Clear PH 7.0 5.0-9.0 Glucose Urine UA Negative Negative mg/dL Urine Blood Small (1+) Negative Specific [place] - Urine 1.010 1.005-1.025 Urine Protein Negative Neg-Trace mg/dL Urine Ketones Negative Negative mg/dL Nitrite Urine Negative Negative Leukocyte Esterase Urine Moderate (2+) Negative RBC Urine 3-5 0-2 /HPF WBC Urine 6-10 0-5 /HPF Squamous Epithelial Cell Urine 3-5 0-2 /HPF Bacteria Urine 1+ None Seen Hyaline Casts Urine 0-2 0-2 /LPF REASON FOR VISIT yearly fasting labs Encounters Encounter Location Date Provider Diagnosis Vito Joel MD [address] [place] [address] [place] [phone] 07/06/2024 Vito Joel Blood tests for rout ine general physical examination Z00.00 ; Essential hypertension I10 ; Prediabetes R73.09 and Pure hypercholesterolemia E78.00 Assessments Encounter Date Diagnosis (ICD Code) Assessment Notes Treatment Notes Treatment Clinical Notes Section Notes 07/06/2024 Blood tests for rout ine general physical examination (ICD-10 - Z00.00) 07/06/2024 Essential hypertensi on (ICD-10 - I10) 07/06/2024 Prediabetes (ICD-10 - R73.09) 07/06/2024 Pure hypercholesterolemia (ICD-10 - E78.00) Plan Of Treatment Next Appt Details Provider Name:Vito romero, 01/09/2025 08:00:00 AM, [address] [place] [address], [address] [place] [address], [phone], Provider Name:Vito romero, 01/16/2025 10:00:00 AM, [address] [place] [address], [address], [phone], Provider Name:Vito romero, 07/10/2025 08:00:00 AM, [address] [place] [address], [address], [phone], Provider Name:Vito Johnson ier, 07/17/2025 01:00:00 PM, [address], [address], [place], [phone], Progress Notes * Maria Ines KAM ADOB:[birth year] (84 yo F)Acc No.[id number]:07/06/2024 Progress Note Patient:?Maria Ines KAM Provider:?Vito Joel MD :1940???Age:84 Y???Sex:Female D ate:07/06/2024 Address:[address] [place], [place] [phone] Subjective: * Chief Complaints: * ???1. Yearly fasting labs. * Medical History:? Objective: * Vitals:? Assessment: * Assessment: 1.?Blood tests for routine g eneral physical examination - Z00.00 (Primary)???2.?Essential hypertension - I10???3.?Prediabetes - R73.09???4.?Pure hypercholesterolemia - E78.00??? Plan: * Treatment: 2.?Essential hypertension?LAB: Complete Blood Count Auto Diff (Collection Date & Time - 07/06/2024 07:45 AM) ?LAB: Comprehensive [facility]. Panel Fast (Collection Date & Time - 07/06/2024 07:45 AM) ?LAB: Lipid Panel (Collection Date & Time - 07/06/2024 07:45 AM) ?LAB: Microalbumin, Random (Collection Date & Time - 07/06/2024 07:45 AM) ?LAB: Hemoglobin A1c (Collection Date & Time - 07/06/2024 07:45 AM) ?LAB: UA ClnCatch+Micro w/rflx Cult (Collection Date & Time - 07/06/2024 07:45 AM)* Lisa Addison 025 11:30:05 AM SCOTT > MARIA INES CAME IN FOR ANNUAL 3.?Prediabetes?LAB: Complete Blood Count Auto Diff (Collection Date & Time - 07/06/2024 07:45 AM) ?LAB: [facility]. Panel Fast (Collection Date & Time - 07/06/2024 07:45 AM) ?LAB: Lipid Panel (Collection Date & Time - 07/06/2024 07:45 AM) ?LAB: Microalbumin, Random (Collection Date & Time - 07/06/2024 07:45 AM) ?LAB: Hemoglobin A1c (Collection Date & Time - 07/06/2024 07:45 AM) ?LAB: UA ClnCatch+Micro w/rflx Cult (Collection Date & Time - 07/06/2024 07:45 AM)* Lisa Addison 025 11:30:05 AM EST > MARIA INES CAME IN FOR ANNUAL 4.?Pure hypercholesterolemia?LAB: Complete Blood Count Auto Diff (Collection Date & Time - 07/06/2024 07:45 AM) ?LAB: Comprehensive [facility]. Panel Fast (Collection Date & Time - 07/06/2024 07:45 AM) ?LAB: Lipid Panel (Collection Date & Time - 07/06/2024 07:45 AM) ?LAB: Microalbumin, Random (Collection Date & Time - 07/06/2024 07:45 AM) ?LAB: Hemoglobin A1c (Collection Date & Time - 07/06/2024 07:45 AM) ?LAB: UA ClnCatch+Micro w/rflx Cult (Collection Date & Time - 07/06/2024 07:45 AM)* Lisa Addison 025 11:30:05 AM EST > MARIA INES CAME IN FOR ANNUAL * Procedure Codes:?47083 VENIP UNCT, ROUTINE* * * The named appointment provid er may or may not be the originator of this progress note, and it is not deemed complete until electronically signed by the appointment provider. Sign off status: Pending * Provider:?Vito Joel MD Date:?0 07/06/2024 Generated for Aleni nayla/Elizabethg/eTransmitting on:?09/06/2024 01:30 PM EST
--- OUTSIDE RECORDS SUMMARY | 2024-09-06 13:30 | XMS_ITS ---
Author Organization [facility] [place] Address [address] [place] [address] Care Team Providers Care Outpatient Psychiatrist Name Role Phone Vito Joel MD Primary Care Provider Irais Mcghee Unavailable [phone] Allergies No Known Allergies REASON FOR VISIT [...] Ordered Date Performed Result Body Sit e 36632-CLUOVUZ NAIL, 6 OR MORE 03/13/2024 N/A Encounters Encounter Location Date Provider Diagnosis [facility] [place] [address] [place] [address] 03/13/2024 Irais Prieto Pain in right foot [...] Treatment Pending Test Test Name Order Date 69865-ZJDUHKT NAIL, 6 OR MORE 03/13/2024 Next Appt Details Follow Up: prn, Reason: Provider Name:Irais Prieto , 11/06/2024 03:15:00 PM, [address] [place], [phone], Procedure Notes * Category Sub-Category Detail Notes [...] as necessary. 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 Patient chooses, no pharmaceutical tx (14738).? * Procedure Codes:?67546 DEBRI DE NAIL, 6 OR MORE, Modifiers: [...] Prieto DPM Date:?2023 Generated for Chey winslow/Sofie/Ez on:?09/06/2024 01:30 PM EST History and Physical Notes * HPI [...]
--- OUTSIDE RECORDS SUMMARY | 2024-09-06 13:31 | XMS_ITS | Patient Health Record ---
Author Organization [facility] Address [address] [address] Care Team Providers Care Outdoor Emergency Care Technician Name Role Phone Wisam DAWSON, Vito Primary Care Provider Irais Mcghee Unavailable [phone] DayannaGerald romero Unavailable [phone] Allergies No Known Allergies Results Component Value [...] Duration) Notes Start Date End Date Status TEGretol 100 MG/5ML 5 ml Orally Three times a day for 30 day(s) Not-Taking Prinivil 10 MG 1 tablet Orally Once a day for 30 day(s) Not-Taking Lipitor 80 MG 1 tablet Orally Once a day Not-Taking Night Splint AFO - L1930 1 wear at rest for 30 days Not-Taking carBAMazepine 200 MG 1 tablet Orally Twi ce a day Active Aspirin 75 MG 1 tablet Orally Once a day Active Atorvastatin Calcium 80 MG Oral for 90 Days Active Lisinopril 10 MG 1 tablet Orally [...] Status Risk Notes Problem Acquired hallux valgus (33220748) Hallux valgus (acquired), left foot (M20.12) Active confirmed Problem Acquired hallux valgus (90315553) Hallux valgus (acquired), right foot (M20.11) Active confirmed Problem Acquired hammer toe of right foot (3385941828175019 ) Other hammer toe(s) (acquired), right foot (M20.41) Active confirmed Problem Acquired hammer toe of left foot (5393141066571934 ) Other hammer toe(s) (acquired), left foot (M20.42) Active confirmed Problem 166146082 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 confirmed Problem 756723965 Pronation deformity of right foot (M21.6X1) Active confirmed Problem 103455876 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) Active confirmed Problem 019154635 Equinus contracture of right ankle (M24.571) Active confirmed Problem Localized, primary osteoarthritis of the ankle and/or foot (055519043) Osteoarthritis of right ankle and foot (M19.071) Active confirmed Problem Localized, primary osteoarthritis of the ankle and/or foot (513104534) Osteoarthritis of left ankle and foot (M19.072) Active confirmed Problem 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) Plantar fasciitis, bilateral (M72.2) Active confirmed Vital Signs Blood pressure diastolic 70 mm Hg 07/13/2024 Height 5 ft 5 in in 07/13/2024 Blood pressure systolic 120 mm Hg 07/13/2024 Weight 182 lbs 07/13/2024 BMI 30.28 kg/m2 07/13/2024 Procedures Procedure Date Ordered Date Performed Result Body Sit e 77299-LABHSQJ NAIL, 6 OR MORE 11/08/2023 N/A 80878-[id number] NAIL, 6 OR MORE 03/13/2024 N/A 69922-[id number] NAIL, 6 OR MORE 07/13/2024 N/A 56817 I&D ABSCESS- SIMPLE,SINGLE 07/13/2024 N/A Encounters Encounter Location Date Provider Diagnosis [address] [address] 11/08/2023 Irais Black Pain in right foot [...] Osteoarthritis of right ankle and foot M19.[address] [address] 03/13/2024 Irais Black Pain in right foot M79.671 [...] M79.674 and Pain in left toe(s) M79.[address] [address] 07/13/2024 Irais Black Pain in right foot M79.671 [...] M79.674 ; Pain in left toe(s) M79.675 and Abscess of toe, left L02.612 [facility] [address] [place] [address] 10/13/2023 Irais Prieto Assessments Encounter Date Diagnosis (ICD Code) Assessment Notes Treatment Notes Treatment Clinical Notes Section Notes 11/08/2023 Pain in right foot (ICD-10 - M79.671) 03/13/2024 Pain in right foot (ICD-10 - M79.671) 07/13/2024 Pain in right foot (ICD-10 - M79.671) 03/13/2024 Plantar fasciitis, bilateral (ICD-10 - M72.2) 07/13/2024 Plantar fasciitis, bilateral (ICD-10 - M72.2) 07/13/2024 Calcaneal spur, right foot (ICD-10 - M77.31) 11/08/2023 Plantar fasciitis, bilateral (ICD-10 - M72.2) Patient Educated with: HEEL CORD STRETCHES.pdf (HEEL CORD STRETCHES.pdf ) Patient Educated with: RICE THERAPY.pdf (RICE THERAPY.pdf) 03/13/2024 Calcaneal spur, right foot (ICD-10 - M77.31) 11/08/2023 Calcaneal spur, right foot (ICD-10 - M77.31) 11/08/2023 Other myositis of right foot (ICD-10 - M60.871) 07/13/2024 Other myositis of right foot (ICD-10 - M60.871) 03/13/2024 Other myositis of right foot (ICD-10 - M60.871) 03/13/2024 Bursitis of right foot (ICD-10 - M77.51) 07/13/2024 Bursitis of right foot (ICD-10 - M77.51) 11/08/2023 Bursitis of right foot (ICD-10 - M77.51) 03/13/2024 Pain in left foot (ICD-10 - M79.672) 11/08/2023 Pain in left foot (ICD-10 - M79.672) 07/13/2024 Pain in left foot (ICD-10 - M79.672) 11/08/2023 Other myositis of left foot (ICD-10 - M60.872) 03/13/2024 Other myositis of left foot (ICD-10 - M60.872) 07/13/2024 Other myositis of left foot (ICD-10 - M60.872) 11/08/2023 Bursitis of left foot (ICD-10 - M77.52) 07/13/2024 Bursitis of left foot (ICD-10 - M77.52) 03/13/2024 Bursitis of left foot (ICD-10 - M77.52) 07/13/2024 Tinea unguium (ICD-10 - B35.1) 03/13/2024 Tinea unguium (ICD-10 - B35.1) 11/08/2023 Tinea unguium (ICD-10 - B35.1) 11/08/2023 Pain in right toe(s) (ICD-10 - M79.674) 03/13/2024 Pain in right toe(s) (ICD-10 - M79.674) 07/13/2024 Pain in right toe(s) (ICD-10 - M79.674) 07/13/2024 Pain in left toe(s) (ICD-10 - M79.675) 11/08/2023 Pain in left toe(s) (ICD-10 - M79.675) 03/13/2024 Pain in left toe(s) (ICD-10 - M79.675) 11/08/2023 Osteoarthritis of left ankle and foot (ICD-10 - M19.072) 07/13/2024 Abscess of toe, left (ICD-10 - L02.612) Patient Educated with: WOUND CARE INSTRUCTIONS. pdf (WOUND CARE INSTRUCTIONS. pdf) 11/08/2023 Osteoarthritis of right ankle and foot (ICD-10 - M19.071) Plan Of Treatment Pending Test Test Name Order Date [id number] NAIL, 6 OR MORE 11/08/2023 67879-WCQSMMQ NAIL, 6 OR MORE 03/13/2024 [id number]-VWWGJXG NAIL, 6 OR MORE 07/13/2024 32346 I&D ABSCESS- SIMPLE,SINGLE 025 Next Appt Details Provider Name:Irais Prieto , 11/06/2024 03:15:00 PM, [address] [facility], [place], [address], Insurance Providers Payer Name Payer Address Payer Phone Subscriber Number Group Number Insured Name Patient Relationship to Insured Coverage Start Date Coverage End Date [facility] [address] [place] [address] [id number] Maria Ines Peacock Self - patient is the insured Medical (General) History Medical History History ICD Code Cancer Seizures High blood pressure Surgical History Surgery Date(Month/Year) historectomy left and right hip replacement 7429-6394
--- OUTSIDE RECORDS SUMMARY | 2024-09-06 13:31 | XMS_ITS ---
Author Organization Vito Joel MD Address [address] [place], [place] [id number] Care Team Providers Care Environmental Health Specialist Name Role Phone Vito Joel Primary Care Provider Allergies No Known Allergies Results Component Value Reference Range Notes Occult Blood, Stool, Guaiac Reviewed date:07/13/2024 01:43:12 PM Interpretation:Negative Performing Lab: Notes/Report: Negative Occult Blood, Stool, Guaiac Neg REASON FOR VISIT annual visiit, CBACK URINE Medications Medication SIG (Take, Route, Frequency, Duration) Notes Start Date End Date Status Lisinopril-hydroCHLOROthi azide 10-12.5 mg TAKE 1 TABLET DAILY Orally Once a day Active Atorvastatin Calcium 80 MG TAKE 1 TABLET DAILY Orally Once a day Active Nystatin-Triamcinolone 556082-6.1 UNIT/GM 1 application to affected area Externally Twice a day for 30 days 09/21/2017 Not-Taking carBAMazepine 200 MG TAKE 1 TABLET TWICE A DAY Orally Twice a day Active Cephalexin 500 MG 1 capsule Orally twi ce a day for 5 days 07/11/2024 Active Aspir-81 81 MG 1 tablet Orally Once a day for 30 day(s) Active Molnupiravir 200 MG 4 capsules Orally ev dara 12 hrs for 5 day(s) 03/23/2024 Active Social History Tobacco Use: Social History Observation Description Date Details (start date - stop date) Never Smoker NA - NA Tobacco Use/Smoking Question Answer Notes Patient is [...] Never (0 point) Points 1 Interpretation Negative Vital Signs Blood pressure systolic 142 mm Hg 07/13/19 25 Blood pressure diastolic 64 mm Hg 025 Height 65.25 in 07/13/2024 Weight 182 lbs 07/13/2024 BMI 30.05 kg/m2 07/13/2024 Encounters Encounter Location Date Provider Diagnosis Vito Joel MD [address] [place] [phone] 07/13/2024 Vito Joel Essential hypertensi on I10 ; Annual physical exam Z00.00 ; Pure hypercholesterolemia E78.00 ; 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 ; Diabetic autonomic neuropathy associated with type 2 diabetes mellitus E11.43 ; Colon cancer screening Z12.11 and Depression screening Z13.31 Assessments Encounter Date Diagnosis (ICD Code) Assessment Notes Treatment Notes Treatment Clinical Notes Section Notes 07/13/2024 Essential hypertensi on (ICD-10 - I10) well controlled, will contiue curent regiment 07/13/2024 Annual physical exam (ICD-10 - Z00.00) labs reviewed and discussed with patient 07/13/2024 Pure hypercholesterolemia (ICD-10 - E78.00) stable, will contiue to monitor 07/13/2024 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 (ICD-10 - G40.109) has not had any seizures in years 07/13/2024 Diabetic autonomic neuropathy associated with type 2 diabetes mellitus (ICD-10 - E11.43) sugars well controlled, no need for medication at this time 07/13/2024 Colon cancer screeni ng (ICD-10 - Z12.11) guaiac negative 07/13/2024 Depression screening (ICD-10 - Z13.31) negative screen Plan Of Treatment Medication Medication Name Sig Start Date Stop Date Notes Lisinopril-hydroCHLOROthiazi de 10-12.5 mg TAKE 1 TABLET DAILY Orally Once a day Atorvastatin Calcium 80 MG TAKE 1 TABLET DAILY Orally Once a day carBAMazepine 200 MG TAKE 1 TABLET TWICE A DAY Orally Twice a day Treatment Notes Assessment Notes Essential hypertension well controlled, will contiue curent regiment Annual physical exam labs reviewed and d iscussed with patient Pure hypercholesterolemia stable, will c ontiue to monitor Localization-related focal e pilepsy with simple partial seizures has not had any seizures in years Diabetic autonomic neuropath y associated with type 2 diabetes mellitus sugars well controlled, no need for medication at this time Colon cancer screening guaiac negative Depression screening negative screen Next Appt Details Follow Up: 6 Months, Reason: Provider Name:Vito romero, 01/09/2025 08:00:00 AM, [address] [place] [address], [address] [place] [address], [phone], Provider Name:Vito romero, 01/16/2025 10:00:00 AM, [address] [place] [address], Suite [facility], [place], [place], [phone], Provider Name:Vito romero, 07/10/2025 08:00:00 AM, [address] [place] [address], Suite [facility], [place], [place], [phone], Provider Name:Vito romero, 07/17/2025 01:00:00 PM, [address] [place] [address], Suite [facility], [place], [place], [phone], Progress Notes * Maria Ines KAM ADOB:[birth year] (84 yo F)Acc No.[id number]:07/13/2024 Progress Notes Patient:?Eddy Maria Ines Ennis Provider:?Vito Joel MD :1940???Age:84 Y???Sex:Female D ate:07/13/2024 Address:[address] [place] [address] [id number] Subjective: * Chief Complaints: * ???Annual visiitCBACK URINE * HPI: ???Depression Screening:?PHQ-9?Little interest or pleasure in doing things?Not at all,?Feeling down, depressed, or hopeless?Not at all,?Trouble falling or staying asleep, or sleeping too much?Not at all,?Feeling tired or having little energy?Not at all,?Poor appetite or overeating?Not at all,?Feeling bad about yourself or that you are a failure, or have let yourself or your family down?Not at all,?Trouble concentrating on things, such as reading the newspaper or watching television?Not at all,?Moving or speaking so slowly that other people could have noticed; or the opposite, being so fidgety or restless that you have been moving around a lot more than usual?Not at all,?Thoughts that you would be better off or of hurting yourself in some way?Not at all,?Total Score?0.?Interpretation and Intervention?Depression Screening Findings?Negative,?Follow-Up for Depression?: review of PHQ-9 found negative result, no follow-up needed.?Communication Needs:?Communication Needs?Does the patient have a hearing impairment?No,?Does the patient have a vision impairment??Yes,?If yes, what is the vision impairment??Glasses,?Does the patient have a cognition impairment??No.?Fall Risk:?History?Have you had any falls with injury in the past year??No,?Have you had two or more falls in the past year??No.?SDOH Questions:?SDOH Questions?In the past year have you been worried about losing housing??No,?In the past year have you or any family members you live with been unable to get any of the following when it was really needed? Check all that apply:?None.?Symptom(s):? patient is a 84 yo female here for yearly evaluation with review of recent labs and follow up of chronic issues. . has some back pain and is going to chiropractor/ has uti but no symptoms. possibly a little discomfort. * ROS:?General/Constitutional:?Patient denies?fatigue , headache.?Change in appetite?denies.?Chills?denies.?Fever?denies.?Ophthalmologic:?Blurred vision?denies.?Discharge?denies.?Pain?denies.?ENT:?Patient denies?decreased sense of smell , any loss of taste , sore throat.?Decreased hearing?denies.?Sore throat?denies.?Swollen glands?denies.?Endocrine:?Cold intolerance?denies.?Excessive thirst?denies.?Heat intolerance?denies.?Weight loss?denies.?Respiratory:?Cough?denies.?Shortness of breath at rest?denies.?Shortness of breath with exertion?denies.?Wheezing?denies.?Cardiovascular:?Chest pain at rest?denies.?Chest pain with exertion?denies.?Irregular heartbeat?denies.?Shortness of breath?denies.?Gastrointestinal:?Abdominal pain?denies.?Change in bowel habits?denies.?Diarrhea?denies.?Nausea?denies.?Rectal bleeding?denies.?Vomiting?denies .?Genitourinary:?Blood in urine?denies.?Difficulty urinating?denies.?Frequent urination?denies.?Urinary incontinence?Denies.?Musculoskeletal:?Patient denies?muscle aches.?Painful joints?denies.?Weakness?denies.?Peripheral Vascular:?Patient denies?red and blue toes.?Skin:?Dry skin?denies.?Itching?denies.?Denies?Mole(s),? changes in moles, new moles or any lesions of concern.?Denies?Photosensitivity.?Rash?denies.?Neurologic:?Dizziness?denies.?Fainting?denies.?Headache?denies.? * Medical History:? * Surgical History:? * Hospitalization/Major Diagno stic Procedure:? * Family History:?Father: dece ased 83 yrs, diagnosed with Cancer.?Mother: 95 yrs, diagnosed with Hypertension.?1 brother(s) . .? f ather, lung cancer 1 brother killed in war, Denies mental health/substance abuse family history, No pertinent family medical history, Denies mental health/substance abuse family history, Denies mental health/substance abuse family history. * Social History:?Tobacco Use:?Tobacco Use/Smoking?Patient is a?nonsmoker,?Additional Findings: Tobacco Non-User?Current non-smoker, currently using no form of tobacco.?Drugs/Alcohol:?Alcohol Screen?Did you have a drink containing alcohol in the past year??Yes,?How often did you have a drink containing alcohol in the past year??Monthly or less (1 point),?How many drinks did you have on a typical day when you were drinking in the past year??1 or 2 drinks (0 point),?How often did you have 6 or more drinks on one occasion in the past year??Never (0 point),?Points?1,?Interpretation?Negative.?Miscellaneous:?Caffeine: yes, frequency:, 2-3 cups per day. no Children. Community involvements: yes. Exercise: yes, golfs 4 times a week 18 holes on the weekends wals[place] a dog. Housing: owning. Living with: alone. Marital status: . Occupation: retired. Pets: dog. Travel outside of the [place]: yes, [place]. * Medications:?TakingAspir-81 81 MG Tablet Delayed Release 1 tablet Orally Once a dayLisinopril-hydroCHLOROthiazide 10-12.5 mg Tablet TAKE 1 TABLET DAILY Orally Once a dayMolnupiravir 200 MG Capsule 4 capsules Orally every 12 hrsAtorvastatin Calcium 80 MG Tablet TAKE 1 TABLET DAILY Orally Once a daycarBAMazepine 200 MG Tablet TAKE 1 TABLET TWICE A DAY Orally Twice a dayCephalexin 500 MG Capsule 1 capsule Orally twice a dayTaking Aspir-81 81 MG Tablet Delayed Release 1 tablet Orally Once a dayTaking Lisinopril-hydroCHLOROthiazide 10-12.5 mg Tablet TAKE 1 TABLET DAILY Orally Once a dayTaking Molnupiravir 200 MG Capsule 4 capsules Orally every 12 hrsTaking Atorvastatin Calcium 80 MG Tablet TAKE 1 TABLET DAILY Orally Once a dayTaking carBAMazepine 200 MG Tablet TAKE 1 TABLET TWICE A DAY Orally Twice a dayTaking Cephalexin 500 MG Capsule 1 capsule Orally twice a dayNot-Taking/PRNNystatin-Triamcinolone 422494-4.1 UNIT/GM Cream 1 application to affected area Externally Twice a dayNot-Taking/PRN Nystatin-Triamcinolone 818721-4.1 UNIT/GM Cream 1 application to affected area Externally Twice a day * Allergies:?N.K.D.A.yes[Aller gies Verified] Objective: * Vitals:?Ht: 65.25, Wt:182, B AR:30.05, BP:142/64, Repeat BP:120/60. * ???Past Orders: ???Lab:Microalbumin, Random (Order Date - 07/06/2024) (Collection Date - 07/06/2024) ? Value Reference Range ?Creatinine Urine 67.54 - m g/dL ?Microalbumin Urine 25.0 - mg/L ?Microalbum Creatinine Ratio Ur 37.0 H <30 - ug/mg cr ???Lab:Hemoglobin A1c (Order Date - 07/06/2024) (Collection Date - 07/06/2024) ? Value Reference Range ?Hemoglobin A1c % 5.6 <6. 0 - % ?Estimated Average Glucose 114 - mg/dL ???Lab:Complete Blood Count Auto Diff (Order Date - 07/06/2024) (Collection Date - 07/06/2024) ? Value Reference Range ?White Blood Count 5.9 4. 8-10.8 - X10*3/uL ?Red Blood Count 4.67 4.20 -5.50 - X10*6/uL ?Hemoglobin 13.6 12.0-16.0 - g/dl ?Hematocrit 41.1 37.0-47.0 - % ?Mean Corpuscular Volume 88.0 80.0-98.0 - fL ?Mean Corpuscular Hemoglobin 29.1 27.0-33.0 - pg ?Mean Corpuscular HGB Conc 33.1 31.0-35.0 - g/dl ?Red Cell Distribution Width 13.3 11.0-16.0 - % ?Platelet Count 284 160-4 00 - X10*3/uL ?Mean Platelet Volume 10.1 9.4-12.3 - fL ?Neutrophils Percent Auto 58.4 45-73 - % ?Imm Gran Pct Auto 0.2 0. 0-0.4 - % ?Lymphocytes Percent Auto 23.9 20-40 - % ?Monocytes Percent Auto 15.3 H 2-11 - % ?Eosinophils Percent Auto 1.7 0-4 - % ?Basophils Percent Auto 0.5 0-2 - % ?NRBC Pct Auto 0.0 0.0-0. 2 - /100WBC ?Neutrophils Absolute Auto 3.5 2.0-8.3 - x10*3/uL ?Imm Gran Abs Auto 0.01 0. 00-0.03 - X10*3/uL ?Lymphocytes Absolute Auto 1.4 1.2-4.9 - X10*3/uL ?Monocytes Absolute Auto 0.9 0.1-1.2 - X10*3/uL ?Eosinophils Absolute Auto 0.1 0.0-0.4 - X10*3/uL ?Basophils Absolute Auto 0.0 0.0-0.2 - X10*3/uL ?NRBC Abs Auto 0.000 0.0-0. 012 - X10*3/uL ???Lab:Comprehensive [facility]. P ernst Fast (Order Date - 07/06/2024) (Collection Date - 07/06/2024) ? Value Reference Range ?Sodium 135 135-145 - mmo l/L ?Bilirubin Total 0.3 0.0- 1.0 - mg/dL ?Aspartate Amino Transferase 24 5-31 - U/L ?Alanine Aminotransferase 19 0-31 - U/L ?Total Protein 6.4 L 6.5-8. 0 - g/dL ?Albumin Level 3.9 3.5-5. 0 - g/dL ?Alkaline Phosphatase 108 39-117 - U/L ?Potassium 4.1 3.3-5.1 - mmol/L ?Chloride 101 96-108 - mm ol/L ?Carbon Dioxide 28 22-29 - mmol/L ?Anion Gap 10 L 12-20 - ?Blood Urea Nitrogen 13 9-16 - mg/dL ?Creatinine 0.68 0.5-1.4 - mg/dL ?Estimated Glomerular Filt Rate > 60 - ?Glucose Fasting 96 60-9 9 - mg/dL ?Calcium 8.9 8.4-10.2 - m g/dL ???Lab:Lipid Panel (Order Da te - 07/06/2024) (Collection Date - 07/06/2024) ? Value Reference Range ?Triglycerides 81 <150 - mg/dL ?Cholesterol 162 <200 - m g/dL ?LDL Cholesterol Calculated 94 <100 - mg/dL ?HDL Cholesterol 52 >40 - mg/dL * Examination: ???General Examination: ?GENERAL APPEARANCE:?well developed, well nourished, in no acute distress.?HEAD:?normocephalic, atraumatic.?EYES:?pupils equal, round, reactive to light and accommodation, sclera non-icteric.?EARS:?normal.?ORAL CAVITY:?mucosa moist.?THROAT:?clear.?NECK/THYROID:?neck supple, full range of motion, no cervical lymphadenopathy, no bruits.?SKIN:?warm and dry, no suspicious lesions.?HEART:?regular rate and rhythm, S1, S2 normal, no murmurs.?LUNGS:?clear to auscultation bilaterally.?BREASTS:?No mass, no lump.?ABDOMEN:?soft, nontender, nondistended, bowel sounds present, normal, no organomegaly , no masses palpable.?RECTAL EXAM:?stool guaiac negative , no masses palpable.?FEMALE GENITOURINARY:?not done.?EXTREMITIES:?no clubbing, cyanosis, or edema.?NEUROLOGIC:?nonfocal, motor strength normal upper and lower extremities, sensory exam intact.? 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 Plan: * Treatment: 2.?Essential hypertension? Continue Lisinopril-hydroCHLOROthiazide Tablet, 10-12.5 mg, TAKE 1 TABLET DAILY, Orally, Once a day.?? Notes: well controlled, will contiue curent regiment?? 3.?Pure hypercholesterolemia ? Continue Atorvastatin Calcium Tablet, 80 MG, TAKE 1 TABLET DAILY, Orally, Once a day.?? Notes: stable, will contiue to monitor?? 4.?Localization-related foca l epilepsy with simple partial seizures? Continue carBAMazepine Tablet, 200 MG, TAKE 1 TABLET TWICE A DAY, Orally, Twice a day.?? Notes: has not had any seizures in years?? 5.?Diabetic autonomic neurop athy associated with type 2 diabetes mellitus? Notes: sugars well controlled, no need for medication at this time?? 6.?Colon cancer screening?LAB: Occult Blood, Stool, Guaiac?Negative ? Value Reference Range ?Occult Blood, Stool, Guaiac Neg Notes: guaiac negative??7.?Depression screening? Notes: negative screen?? * Procedure Codes:?66714 TEST FOR BLOOD, FECES * Follow Up:?6 Months * * Sign off status: Completed true * Provider:?Vito Joel MD Date:?0 07/13/2024 Generated for Chey winslow/Sofie/Clementsmitting on:?09/06/2024 01:31 PM EST History and Physical Notes * HPI (History of Present Illness) Category Sub-Category Detail Notes Category Not es Symptom(s) patient is a 84 yo female here for yearly evaluation with review of recent labs and follow up of chronic issues. . has some back pain and is going to chiropractor/ has uti but no symptoms. possibly a little discomfort Depression Screening PHQ-9 Little inte rest or pleasure in doing things: Not at all Feeling down, depressed, or hopeless: No t at all Trouble falling or staying asleep, or sl eeping too much: Not at all Feeling tired or having little energy: N ot at all Poor appetite or overeating: Not at all Feeling bad about yourself o r that you are a failure, or have let yourself or your family down: Not at all Trouble concentrating on thi ngs, such as reading the newspaper or watching television: Not at all Moving or speaking so slowly that other people could have noticed; or the opposite, being so fidgety or restless that you have been moving around a lot more than usual: Not at all Thoughts that you would be b eze off or of hurting yourself in some way: Not at all Total Score: 0 Interpretation and Intervention Depression Michi henderson Findings: Negative Follow-Up for Depression: : review of PH Q-9 found negative result, no follow-up needed SDOH Questions SDOH Questions In the past year have you been worried about losing housing?: No In the past year have you or any family members you live with been unable to get any of the following when it was really needed? Check all that apply:: None Fall Risk History Have you had any falls with injury i n the past year?: No Have you had two or more falls in the st year?: No Communication Needs Communication Needs Does the patient have a hearing impairment: No Does the patient have a vision impairmen t?: Yes ?If yes, what is the vision impairment?: Glasses Does the patient have a cognition impair ment?: No Examination Category Sub-Category Detail Notes Category Not es General Examination GENERAL APPEARANCE: well dev eloped, well nourished, in no acute distress HEAD: normocephalic, atrau matic EYES: pupils equal, round, reactive to light and accommodation, sclera non- icteric EARS: normal THROAT: clear NECK/THYROID: neck supple, full ra nge of motion, no cervical lymphadenopathy, no bruits HEART: regular rate and rhy thm, S1, S2 normal, no murmurs LUNGS: clear to auscultatio n bilaterally ABDOMEN: soft, nontender, non distended, bowel sounds present, normal, no organomegaly , no masses palpable NEUROLOGIC: nonfocal, motor stre ngth normal upper and lower extremities, sensory exam intact SKIN: warm and dry, no lesvia picious lesions EXTREMITIES: no clubbing, cyanosi s, or edema BREASTS: No mass, no lump RECTAL EXAM: stool guaiac negativ e , no masses palpable FEMALE GENITOURINARY: not done ORAL CAVITY: mucosa moist
--- OUTSIDE RECORDS SUMMARY | 2024-09-06 13:31 | XMS_ITS ---
Author Organization [facility] Address [address] [place] [address] Care Team Providers Care Mold Engraver Name Role Phone Wisam DAWSON, Vito Primary Care Provider Horace Irais Sunshine Unavailable [phone] Gerald Alan Unavailable [phone] REASON FOR VISIT wrong patient Encounters Encounter Location Date Provider Diagnosis [address] [address] 12/21/2023 Gerald Alan Plan Of Treatment Next Appt Details Provider Name:Irais Prieto , 11/06/2024 03:15:00 PM, [address] [place], [address], Progress Notes * KAM Maria Ines ADOB:[birth year] (84 yo F)Acc No.[id number]:12/21/2023 Progress Notes Patient:?Maria Ines KAM Provider:?Gerald Alan DPM :1940???Age:83 Y???Sex:Female D ate:12/21/2023 Address: [address] [id number] Pcp:Vito Joel MD Subjective: * Chief Complaints: [...] Alan DPM Date:?2023 Generated for Chey winslow/Sofie/Ez on:?09/06/2024 01:31 PM EST
--- OUTSIDE RECORDS SUMMARY | 2024-09-06 13:31 | XMS_ITS ---
Author Organization [facility] Address [address] [place] [address] Care Team Providers Care Database Tester Name Role Phone Vito Joel MD Primary Care Provider Irais Mcghee Unavailable [phone] Allergies No Known Allergies REASON FOR VISIT Heel pain, Painful nail(s) aggrevated by shoes causing difficulty standing/walking, Possible Infection Medications Medication SIG (Take, Route, Frequency, Duration) [...] Additional Findings: Tobacco Non-User Current no n-smoker Tobacco use other than smoking: Question Answer Notes Are you an other tobacco user? 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) Plantar fasciitis, bilateral (M72.2) Active confirmed Vital Signs Height 5 ft 5 in in 07/13/2024 Weight 182 lbs 07/13/2024 BMI 30.28 kg/m2 07/13/2024 Blood pressure systolic 120 mm Hg 07/13/19 25 Blood pressure diastolic 70 mm Hg 025 Procedures Procedure Date Ordered Date Performed Result Body Sit e 30882-ZHBJPPQ NAIL, 6 OR MORE 07/13/2024 N/A 39014 I&D ABSCESS- SIMPLE,SINGLE 07/13/2024 N/A Encounters Encounter Location Date Provider Diagnosis [facility] [place] [address] [place] [address] 07/13/2024 Irais Black Pain in right foot [...] M79.675 and Abscess of toe, left L02.612 Assessments Encounter Date Diagnosis (ICD Code) Assessment Notes Treatment Notes Treatment Clinical Notes Section Notes 07/13/2024 Pain in right foot (ICD-10 - M79.671) 07/13/2024 Plantar fasciitis, bilateral (ICD-10 - M72.2) 07/13/2024 Calcaneal spur, right foot (ICD-10 - M77.31) 07/13/2024 Other myositis of right foot (ICD-10 - M60.871) 07/13/2024 Bursitis of right foot (ICD-10 - M77.51) 07/13/2024 Pain in left foot (ICD-10 - M79.672) 07/13/2024 Other myositis of left foot (ICD-10 - M60.872) 07/13/2024 Bursitis of left foot (ICD-10 - M77.52) 07/13/2024 Tinea unguium (ICD-10 - B35.1) 07/13/2024 Pain in right toe(s) (ICD-10 - M79.674) 07/13/2024 Pain in left toe(s) (ICD-10 - M79.675) 07/13/2024 Abscess of toe, left (ICD-10 - L02.612) Patient Educated with: WOUND CARE INSTRUCTIONS.p df (WOUND CARE INSTRUCTIONS.p df) Plan Of Treatment Treatment Notes Assessment Notes Abscess of toe, left Patient Educated wi th: WOUND CARE INSTRUCTIONS.pdf (WOUND CARE INSTRUCTIONS.pdf) Pending Test Test Name Order Date [id number] NAIL, 6 OR MORE 07/13/2024 31166 I&D ABSCESS- SIMPLE,SINGLE 025 Next Appt Details Follow Up: 2 Weeks,prn, Reas on: Provider Name:Irais Prieto , 11/06/2024 03:15:00 PM, [address] [place] [address], [phone], Procedure Notes * Category Sub-Category Detail Notes Debride Nail 6-10 Nail debridement Due to the cl inical pathology outlined in the exam findings, performance of this nail treatment is medically necessary as its management by an unskilled/untrained nonprofessional would put this patients foot and overall health at risk. Therefore, debridement to affected nail(s), as described in exam ( T1 , T2 , T3 , T6 , T7 , T8 ), was performed exclusively by the physician of record to reduce/remove overall nail length, girth, thickness, subungual debris, and necrotic tissue, by manual and/or electrical means through the use of a nail nipper and/or dremel-type grinder brake lining, to a more viable healthy nail plate or bed tissue 6-10 nails in total. Silver nitrate was used for any petechial bleeding as necessary. Definitive antifungal treatment options, both pharmaceutical and surgical, have been reviewed and discussed with the patient. The patient solely prefers the use of intermittent/as needed professional debridement services for their nail condition and understands the need for additional periodic treatments to maintain effectiveness in symptomatic relief - 73905 I&D nail abscess Location Medial nail bor valerie, TA Procedure Performed incision a nd drainage of Single Nail Abscess with use of sterile nail nipper/316 blade. Approximately ( 0.1 ) cc purulent fluid material was drained. The infected devitalized soft tissue was curettaged to healthy bleeding bed. Any affected nail portion was removed to the eponychium . Any evidence of granuloma was also removed at this time. No underlying bone was visualized. There was minimal bleeding as hemostasis was achieved through the temporary use of either a digital tournaquet or the aforementioned local with epinephrine. An application of sterile Bacitracin dressing was performed. Local wound care instructions were discussed and dispensed. Recommended Tylenol or Motrin for pain/discomfort (39389) Type Single, Abscess Anesthesia Topically with ethyl chloride per Pt preference Progress Notes * Maria Ines KAM ADOB:[birth year] (84 yo F)Acc No.[id number]:07/13/2024 Progress Note Patient:?Maria Ines KAM Provider:?Irais Prieto DPM :1940???Age:84 Y???Sex:Female D ate:07/13/2024 Address:[address] [place], [place] [id number] Pcp:Vito Joel MD Subjective: * Chief Complaints: * ???Heel painPainful nail(s) aggrevated by shoes causing difficulty standing/walkingPossible Infection * HPI: ???Heel pain:?Nature:?tenderness, sharp pain, stiffness.?Location:?Proximal plantar aspect of Heel , B/L.?Duration:?several months.?Course:?improved , at approximately 100%.?Aggravated:?standing, walking, walking first thing in the morning/after rest.?Treatments:?rest/alter normal daily activity , stretching , AFO- nightsplint , pre-fabricated orthoses, change in shoes.?Painful Nails:?Pt States Last PCP Visit:?Date:?07/13/2024 * ROS:?General/Constitutional:?Nausea?denies.?Vomiting?denies.?Hunger Thirst?denies.?Loss appetite?denies.?Chills?denies.?Fatigue?denies.?Fever?denies.?Night Sweats?denies.?Unexplained weight loss?denies.?Unexplained weight gain?denies.?HEENTM:?Dentures?denies.?Dizziness?denies.?Glasses/contacts?admits.?Retinopathy?de nies.?Blurred/double vision?denies.?TMJ?denies.?Discharge/drainage?denies.?Implants?denies.?Sore throat?denies.?Dental implants?denies.?Hard of hearing ?admits.?Difficulty chewing/swallowing/speaking?denies.?Nose bleeds?denies.?Sore mouth?denies.?Respiratory:?On Oxygen?denies.?Pneumonia/pleurisy?denies.?Bronchitis?denies.?Emphysema?denies.?C oughing?denies.?Cough blood?denies.?Shortness of breath?admits.?Wheezing?denies.?Cardiovascular:?Pacemaker?denies.?MVP?denies.?WPW?denies.?CHF?denies.?Heart attack?denies.?Septal defect?denies.?Rapid beat?denies.?Chest pain ?denies.?Atrial Fib.?denies.?Murmur/Palpitations?denies.?Gastrointestinal:?Hemorrhoids?denies.?Stomach/Abdominal pain?denies.?Dark blood stool?denies.?Irritable bowel ?denies.?Constipation?denies.?Diarrhea?denies.?Hematology:?Swelling?denies.?Clots?denies.?Varicose Veins?denies.?Bruising?denies.?Bleeding problem?denies.?Genitourinary:?Blood urine?denies.?Frequent/Painfu/urination/bladder control?denies.?Kidney stones?denies.?Infection (UTI)?denies.?Nephropathy?denies.?sex trans dis (STD)?denies.?Prostate?denies.?Musculoskeletal:?Hammertoes?denies.?Bunions?denies.?Back Pain?admits.?Muscle Cramps/ Resting?denies.?Muscle cramps / walking?denies.?Generalized aches and pains?denies.?Weakness?denies.?Integ.:?[place]?denies.?Scars?denies.?Corns/calluses?denies.?Ingrown nails?admits.?Painful nails?,admits.?Open Sores?denies.?Rashes?denies.?Neurologic:?Difficulty sleeping?denies.?Brain disorder?denies.?Numbness?denies.?Balance trouble?denies.?Confusion?denies.?Fainting/blackouts?denies.?Tingling?denies.?Tr emors?denies.? * Medical History:? 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 * Social History:?Tobacco Use:?Tobacco Use/Smoking?Are you a:?nonsmoker ?Additional Findings: Tobacco Non-User?Current non-smoker ?Tobacco use other than smoking?Are you an other tobacco user??No * Medications:?TakingLisinopri l 10 MG Tablet 1 tablet Orally Once a day Atorvastatin Calcium 80 MG Tablet Oral Aspirin 75 MG Tablet Chewable 1 tablet Orally Once a day carBAMazepine 200 MG Tablet 1 tablet Orally Twice a day Taking Lisinopril 10 MG Tablet 1 tablet Orally Once a day Taking Atorvastatin Calcium 80 MG Tablet Oral Taking Aspirin 75 MG Tablet Chewable 1 tablet Orally Once a day Taking carBAMazepine 200 MG Tablet 1 tablet Orally Twice a day Not-Taking/PRNNight Splint AFO - L1930 1 wear at rest Lipitor 80 MG Tablet 1 tablet Orally Once a day Prinivil 10 MG Tablet 1 tablet Orally Once a day TEGretol 100 MG/5ML Suspension 5 ml Orally Three times a day Medication List reviewed and reconciled with the patientNot-Taking/PRN Night Splint AFO - L1930 1 wear at rest Not-Taking/PRN Lipitor 80 MG Tablet 1 tablet Orally Once a day Not-Taking/PRN Prinivil 10 MG Tablet 1 tablet Orally Once a day Not- Taking/PRN TEGretol 100 MG/5ML Suspension 5 ml Orally Three times a day Medication List reviewed and reconciled with the patient * Allergies:?N.K.D.A.yes[Aller gies Verified] Objective: * Vitals:?Ht: 5 ft 5 in, Wt: 1 82, BMI: 30.28, Shoe size: 10, BP: 120/70 mm Hg, Ht- cm: 165.1 cm, Wt-k.55 kg. * Examination: ???General Examination: ?GENERAL APPEARANCE:? Denies fever, chills, malaise, lymphadenopathy.?ORIENTED:?person, place, and time.?Heel Pain: ?INSPECTION REVEALS:?NO Pain on Palpation to Plantar Fascia med. and central bands, intrinsic musc., infra-calcaneal bursa, and med calc tubercle, B/L, No pain: posterior/superior heel, achilles bursa/tendon, sinus tarsi, peroneals, or with lateral heel compression; no limited STJ ROM, calor, or ecchymosis , B/L , States approximately 100 % LESS.?Neurological: ?SENSORY:?Neurological exam reveals intact sensorium, pain sensation normal, vibration sensation intact, pinprick sensation is normal in the lower extremities, Pt denies, anesthesia, burning, paresthesia, tingling, B/L.?Nails: ?NAILS are:?Elongated, overgrown, dystrophic, lytic, greater than 3mm thick, discolored and friable with crumbly malodorous subungual debris, with pain on palpation , T1 , T2 , T3 , T6 , T7 , T8.?Vascular: ?DP PULSES (B):?2/4, B/L.?PT PULSES (B):?2/4, B/L.?Abscess/infected nail: ?INSPECTION?Reveals nail incurvation, pain on palpation, groove laceration, inflammation, malodor, localized cellulitis, and purulent abscess with pre- operative size of approximately ( 1-2 ) mm square without exposed bone, Medial nail border, TA.? Assessment: * Assessment: 1.?Pain in right foot - M79. 671???2.?Plantar fasciitis, bilateral - M72.2 (Primary)???Specify :Resolved???3.?Calcaneal spur, right foot - M77.31???4.?Other myositis of right foot - M60.871???5.?Bursitis of right foot - M77.51???6.?Pain in left foot - M79.672???7.?Other myositis of left foot - M60.872???8.?Bursitis of left foot - M77.52???9.?Tinea unguium - B35.1???10.?Pain in right toe(s) - M79.674???11.?Pain in left toe(s) - M79.675???12.?Abscess of toe, left - L02.612??? Plan: * Treatment: 2.?Abscess of toe, left?Procedure: 47175 I&D ABSCESS- SIMPLE,SINGLE Notes: Patient Educated with: WOUND CARE INSTRUCTIONS.pdf (WOUND CARE INSTRUCTIONS.pdf)?? * Procedures:?Debride Nail 6-10:?Nail debridement?Due to the clinical pathology outlined in the exam findings, performance of this nail treatment is medically necessary as its management by an unskilled/untrained nonprofessional would put this patients foot and overall health at risk. Therefore, debridement to affected nail(s), as described in exam ( T1 , T2 , T3 , T6 , T7 , T8 ), was performed exclusively by the physician of record to reduce/remove overall nail length, girth, thickness, subungual debris, and necrotic tissue, by manual and/or electrical means through the use of a nail nipper and/or dremel-type grinder brake lining, to a more viable healthy nail plate or bed tissue 6-10 nails in total. Silver nitrate was used for any petechial bleeding as necessary. Definitive antifungal treatment options, both pharmaceutical and surgical, have been reviewed and discussed with the patient. The patient solely prefers the use of intermittent/as needed professional debridement services for their nail condition and understands the need for additional periodic treatments to maintain effectiveness in symptomatic relief - 95283.?I&D nail abscess:?Type?Single, Abscess.?Anesthesia?Topically with ethyl chloride per Pt preference.?Location?Medial nail border, TA.?Procedure?Performed incision and drainage of Single Nail Abscess with use of sterile nail nipper/316 blade. Approximately ( 0.1 ) cc purulent fluid material was drained. The infected devitalized soft tissue was curettaged to healthy bleeding bed. Any affected nail portion was removed to the eponychium . Any evidence of granuloma was also removed at this time. No underlying bone was visualized. There was minimal bleeding as hemostasis was achieved through the temporary use of either a digital tournaquet or the aforementioned local with epinephrine. An application of sterile Bacitracin dressing was performed. Local wound care instructions were discussed and dispensed. Recommended Tylenol or Motrin for pain/discomfort (76518).? * Procedure Codes:?60218 DEBRI DE NAIL, 6 OR MORE, Modifiers: XS 48607 DRAINAGE OF SKIN ABSCESS, Modifiers: TA * Preventive Medicine:? ??Counseling:?Discussion:?-12: Office or other outpatient visit for the evaluation and management of an established patient, which required a medically appropriate history and/or examination and STRAIGHTFORWARD level of MEDICAL DECISION MAKING, 1 SELF-LIMITED OR MINOR PROBLEM, MINIMAL- NO AMOUNT/COMPLEXITY OF DATA TO BE REVIEWED/ANALYZED, AND MINIMAL RISK OF COMPLICATION/MORBIDITY. The visit on the day of the [...] have encouraged the patient to call the office, Patients podiatric issue has improved, they should call the office with any future issues or concerns. However recomm. Continued stretching exercises to prevent reoccurrence.? ??Screening/Special Tests:?Fall Risk?Screening:?No falls in the past year ?FALLS: Screening for Future Fall Risk?Have you had any falls with injury in the past year??No * Follow Up:?2 Weeks,prn * Images: * Sign off status: Completed true * Provider:?Irais Prieto DPM Date:?2024 Generated for Chey winslow/Sofie/Ez on:?09/06/2024 01:31 PM EST History and Physical Notes * HPI (History of Present Illness) Category Sub-Category Detail Notes Category Not es Heel pain Duration: several months Nature: tenderness, sharp pa in, stiffness Location: Proximal plantar asp ect of Heel , B/L Aggravated: standing, walking, w alking first thing in the morning/after rest Course: improved , at approx imately 100% Treatments: rest/alter normal da pham activity , stretching , AFO-nightsplint , pre-fabricated orthoses, change in shoes Painful Nails Pt States Last PCP Visit: Date:: 07/13/2024 Examination Category Sub-Category Detail Notes Category Not es Heel Pain INSPECTION REVEALS: NO Pain on P alpation to Plantar Fascia med. and central bands, intrinsic musc., infra-calcaneal bursa, and med calc tubercle, B/L, No pain: posterior/superior heel, achilles bursa/tendon, sinus tarsi, peroneals, or with lateral heel compression; no limited STJ ROM, calor, or ecchymosis , B/L , States approximately 100 % LESS Neurological SENSORY: Neurological exa m reveals intact sensorium, pain sensation normal, vibration sensation intact, pinprick sensation is normal in the lower extremities, Pt denies, anesthesia, burning, paresthesia, tingling, B/L General Examination GENERAL APPEARANCE: Denies f ever, chills, malaise, lymphadenopathy ORIENTED: person, place, and t selma Vascular DP PULSES (B): 2/4, B/L PT PULSES (B): 2/4, B/L Nails NAILS are: Elongated, overg rown, dystrophic, lytic, greater than 3mm thick, discolored and friable with crumbly malodorous subungual debris, with pain on palpation , T1 , T2 , T3 , T6 , T7 , T8 Abscess/infected nail INSPECTION Reveals na il incurvation, pain on palpation, groove laceration, inflammation, malodor, localized cellulitis, and purulent abscess with pre-operative size of approximately ( 1-2 ) mm square without exposed bone, Medial nail border, TA
== END 2024-09-06 11:13 | disposition home or self-care (01) ==
LOC: HO.MAMMO 11:12
PROVIDERS: PCP Internal Medicine; Visit Provider Internal Medicine
DX: Z13.89 Encounter for screening for other disorder (principal)

== ENCOUNTER 2024-09-06 13:40 | Inpatient (IN) | payer OTHER, SELFPAY ==
--- NOTE | ~2024-09-06 | XR_ITS ---
EXAMINATION: XR ABDOMEN KUB CLINICAL INDICATION: Sbo COMPARISON: CT abdomen and pelvis 09/06/2024 TECHNIQUE: AP view of the abdomen. FINDINGS: Scattered stool and gas seen in colon without distention. The small bowel loops are normal caliber. There is an enteric tube in the distal stomach. There is no organomegaly. No radiopaque calculi seen however limited. 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 There is mild levoscoliosis lumbar spine with degenerative disc changes and spondylosis seen throughout lumbar spine. XR/XR KUB IMPRESSION: Mild constipation. No acute process seen. Tip of enteric tube in the distal stomach. Electronically signed by: Jeff Mcnair MD 09/08/2024 09:34 AM EST
--- NOTE | ~2024-09-06 | XR_ITS ---
CLINICAL HISTORY: Post NG tube placement 1 view chest x-ray Comparison: None Findings: The tip of the NG tube is overlying the left upper quadrant. Mild atelectasis of the right lung base. Heart size is normal. No acute fracture. IMPRESSION: Tip of NG tube is overlying the stomach. This document has been electronically signed by: Dc Multani MD on 09/06/2024 21:21:45
--- NOTE | ~2024-09-06 | XR_ITS ---
CLINICAL HISTORY: repeat for NG tube placement 1 view chest x-ray Comparison: CR - XR CHEST 1V - 09/07/24 20:39 EST CR - XR CHEST 1V - 09/06/24 20:24 EST Findings: No consolidation or effusion. Heart size is normal. No acute fracture. The NG tube tip is now in the proximal stomach with the side port near the gastroesophageal junction. IMPRESSION: The NG tube tip is now in the proximal stomach with the side port near the gastroesophageal junction. please advance 8-10 cm. This document has been electronically signed by: Kamron Nunez MD on 09/07/2024 21:26:41
--- NOTE | ~2024-09-06 | XR_ITS ---
CLINICAL HISTORY: confirm NG tube placement after advanced. 1 view chest x-ray Comparison: None Findings: There is bibasilar atelectasis. Right lower lobe pneumonia is not excluded. Heart size is normal. No acute fracture. The NG tube has been advanced and appears adequately positioned. IMPRESSION: 1. The NG tube has been advanced and appears adequately positioned. 2. There is bibasilar atelectasis. Right lower lobe pneumonia is not excluded. This document has been electronically signed by: Kamron Nunez MD on 09/07/2024 23:16:15
--- NOTE | ~2024-09-06 | XR_ITS ---
CLINICAL HISTORY: sbo Radiograph of the abdomen 1 view Comparison: CR - XR KUB - 09/09/24 07:38 EST Findings: 2 films were obtained portably. Again identified is an enteric tube with tip in the proximal duodenum. Redemonstration of multiple opacified small bowel loops in the left and central abdomen with no interval progression since prior. Are surgical clips in the left lower quadrant. Nonspecific bibasilar opacities. Bilateral total hip arthroplasties. Impression: 1. No interval distal progression of enteric contrast in the small bowel compared to prior is consistent with a high-grade small-bowel obstruction. This document has been electronically signed by: Shirley Wahl DO on 09/10/2024 12:48:32
--- NOTE | ~2024-09-06 | XR_ITS ---
CLINICAL HISTORY: NG Tube placement 1 view chest x-ray Comparison: CR - XR CHEST 1V - 09/07/24 22:38 EST Findings: There is likely a layering right pleural effusion. Heart size at the upper limits. No acute fracture. IMPRESSION: 1. NG tube is partially coiled at the distal esophagus. 2. Probable right effusion. Follow-up as needed. This document has been electronically signed by: Hilton Phillip MD on 09/13/2024 23:27:30
--- NOTE | ~2024-09-06 | XR_ITS ---
CLINICAL HISTORY: F U SM BOWEL SERIES 1 view abdomen Comparison: CR - FL SMALL BOWEL FOLLOW THROUGH - 09/08/24 20:12 EST Findings: No pneumoperitoneum or pneumatosis. Dilated contrast filled small bowel noted. Well-positioned NG tube present No abnormal calcifications. No acute fractures. IMPRESSION: No change in the appearance of small-bowel obstruction. Continued follow-up. This document has been electronically signed by: Fito Galindo MD on 09/10/2024 11:07:02
--- NOTE | ~2024-09-06 | XR_ITS ---
CLINICAL HISTORY: NGT placenent 2nd attempt 1 view chest x-ray Comparison: CR - XR CHEST 1V - 09/13/24 22:15 EDT Findings: Layering right pleural effusion again noted. Heart size at the upper limits. No acute fracture. IMPRESSION: NG tube repositioned. Distal side hole at the gastroesophageal junction and catheter is no within the upper stomach. This document has been electronically signed by: Hilton Phillip MD on 09/13/2024 23:41:21
--- NOTE | ~2024-09-06 | CT_ITS ---
CLINICAL HISTORY: Abdominal pain, vomiting, R o obstruction CT abdomen and pelvis without contrast Comparison: None Findings: Examination is limited by without contrast. Lung bases are clear. No pleural effusion. Mild nodular appearance of the liver surface without focal liver lesion. Pancreas, Spleen and both adrenals show normal size, shape and attenuation on present unenhanced scan. No CBD dilatation. No calcified gallstone in the gallbladder. Both kidneys reveal normal in size, shape, position and attenuation. No kidney stone. No hydronephrosis. The IVC, aorta and portal vein are within normal position and caliber. Atherosclerosis calcification of the aorta. No evidence of retroperitoneal lymphadenopathy. Small ascites There is mild dilation of the small bowel measuring up to 3.3 cm in diameter. There is bowel wall thickening of the ascending colon with fatty replacement. Appendix appears normal. Post hysterectomy. Evaluation of the pelvis is limited by the beam hardening artifact from the hip prosthesis. Bilateral hip replacement. Degenerative changes of the lumbar spine. IMPRESSION: Mild dilation of the small bowel could represent small-bowel obstruction or ileus. Bowel wall thickening with fatty replacement of the ascending colon could represent inflammatory bowel disease. Correlation with colonoscopy findings as indicated. Mild nodular thickening of the liver surface with small ascites. Liver cirrhosis can not be excluded. Additional findings as above. This document has been electronically signed by: Dc Multani MD on 09/06/2024 18:32:37
--- NOTE | ~2024-09-06 | FL_ITS ---
EXAMINATION: FL SMALL BOWEL SERIES CLINICAL INFORMATION: ?SBO, abd distention, persistent nausea COMPARISON: None available. TECHNIQUE: Following a district scout executive image of the abdomen, thick barium contrast was administered orally, and interval abdominal radiographs were performed to assess for contrast progression through the small bowel. Following contrast transit through the small bowel and into the colon, the patient was placed on the fluoroscopy table, and multiple spot images were obtained. FINDINGS: Bridge Painter image of the abdomen demonstrates obstructed proximal small bowel gas pattern. Following oral administration of 450 mL of thick barium barium via enteric tube there is contrast opacifying stomach and proximal small bowel jejunal loops. There is no progression of contrast in the proximal small bowel loops up to 210 minutes of imaging. Further images will be obtained at variable intervals tonight and tomorrow morning. FL/FL small bowel follow through IMPRESSION: There is significant delay in transit of small bowel loops likely secondary to dynamic obstruction in the mid or distal jejunum. Follow-up KUB will be obtained today and tomorrow morning. Electronically signed by: Jeff Mcnair MD 09/11/2024 10:35 AM EDT
--- NOTE | ~2024-09-06 | XR_ITS ---
CLINICAL HISTORY: confirm NG tube placement 1 view chest x-ray Comparison: CR - XR CHEST 1V - 09/06/24 20:24 EST Findings: No consolidation or effusion. Heart size is normal. No acute fracture. NG tube is adequately positioned. IMPRESSION: 1. NG tube is adequately positioned. No significant interval changes. This document has been electronically signed by: Kamron Nunez MD on 09/07/2024 21:24:13
[2024-09-06 14:09] VITALS: BP 176/94; PULSE 58; O2SAT 98
[2024-09-06 14:14] VITALS: BP 164/84; PULSE 64; RESP 18; TEMP 36.4; O2SAT 95; BMI 33.5
[2024-09-06 15:10] LABS: PLT CLUMP 1
[2024-09-06 15:12] LABS: Hematocrit 47.9 % (37.0-47.0); Mean Corpuscular HGB Conc 33.4 g/dl (31.0-35.0); Mean Corpuscular Hemoglobin 29.7 pg (27.0-33.0); Mean Corpuscular Volume 88.9 fL (80.0-98.0); Red Blood Count 5.39 X10*6/uL (4.20-5.50); Red Cell Distribution Width 13.1 % (11.0-16.0)
--- NOTE | 2024-09-06 15:26 | ED_ITS ---
HPI - Abdominal Pain General Chief Complaint: Abdominal Pain Stated Complaint: NVD x6 hours, abd pain Time Seen by Provider: 09/06/24 15:16 Source: patient and EMS Mode of arrival: EMS Limitations: no limitations History of Present Illness ED Provider: DR. Mckeon HPI narrative: 84-year-old female history of lumbar spondylosis with chronic back pain, DM type 2, seizure disorder, HTN, HLD, endometrial cancer, s/p hysterectomy with bilateral oophorectomy. Patient came in by EMS for evaluation of sudden onset of lower abdominal pain followed by nausea, vomiting, and nonbloody watery diarrhea several times since it started, patient was on her way to do her annual mammogram when her symptoms started, live in independent living facility at [facility]. No fever, no chills, no sick contacts, no blood in the urine, no blood in the vomit. Related Data Home Medications ?Medication ?Instructions ?Recorded ?Confirmed aspirin 81 mg tablet,delayed 81 mg PO DAILY 08/17/23 07/06/24 release atorvastatin 80 mg tablet 80 mg PO DAILY 08/17/23 07/06/24 carbamazepine 200 mg tablet 200 mg PO BID 08/17/23 07/06/24 lisinopril 10 1 tab PO DAILY 08/17/23 07/06/24 mg-hydrochlorothiazide 12.5 mg tablet Allergies Allergy/AdvReac Type Severity Reaction Status Date / Time No Known Allergies Allergy Verified 09/06/24 14:15 Review of Systems Review of Systems All other systems are reviewed and are negative Constitutional: Reports as per HPI and Reports no additional constitutional complaints Eyes: Reports as per HPI and Reports no additional eye complaints Reports system reviewed and no additional complaints, except as documented Cardiovascular: Reports as per HPI and Reports no additional cardiovascular complaints Respiratory: Reports as per HPI and Reports no additional respiratory complaints Gastrointestinal: Reports as per HPI and Reports no additional gastrointestinal complaints Genitourinary: Reports no additional female genitourinary complaints Musculoskeletal: Reports no additional musculoskeletal complaints Skin/Breast: Reports system reviewed and no additional complaints, except as docu Psychiatric: Reports no additional psychiatric complaints Endocrine: Reports no additional endocrine complaints Hematologic/Lymphatic: Reports no additional hematologic/lymphatic complaints Allergic/Immunologic: Reports no additional allergic/immunologic complaints Reports system reviewed and no additional complaints, except as documented and Reports Abnormal speech present [facility] Past Medical History Medical History Lumbar spondylosis Autonomic neuropathy due to type 2 diabetes mellitus History of seizure disorder Intermittent spinal claudication Neuropathy Localization-related (focal) (partial) symptomatic epilepsy and epileptic syndromes with simple partial seizures, not intractable, without status epilepticus Hypercholesteremia Essential hypertension Endometrial cancer Surgical History History of hysterectomy with bilateral oophorectomy Social History Social History Alcohol intake: current Alcohol intake frequency: holidays/special occasions only Patient Tobacco Use Status: Never used Tobacco Smoked in Last 30 Days: No Use of substances other than those prescribed or required for medical reasons: No Advance Directives: No Advance Directives Information Provided: Yes Current occupational status: retired Physical Exam ED Vital Signs: Vital Signs - 24 hr 09/06/24 14:14 09/06/24 15:50 09/06/24 17:46 Temperature 97.5 F 97.5 F Pulse Rate 64 66 Respiratory Rate 18 20 18 Blood Pressure 164/84 H 146/65 H Pulse Oximetry 95 96 Oxygen Delivery Method Room Air Room Air 09/06/24 17:55 09/06/24 19:04 Temperature Pulse Rate 69 Respiratory Rate 20 14 Blood Pressure 126/66 Pulse Oximetry 94 Oxygen Delivery Method Room Air BMI result Body Mass Index 33.5 Vital signs have been reviewed and appear to be correct. Blood pressure elevated. Heart rate normal. Respiratory rate normal. Temperature normal. Oxygen saturation normal. Appearance: Alert. Oriented X3. No acute distress. Head: Normal external exam. Normocephalic. Atraumatic. No Tompkins signs noted. No raccoon eyes noted Eyes: PERRLA. EOMI. Conjunctiva and sclera normal. Eyelids normal. ENT: TM's Normal. Pharynx normal. Uvula midline. Moist mucous membranes. No trismus noted. No drooling noted. No muffled voice noted. Neck: Normal inspection. Neck supple. FROM. No adenopathy. Thyroid Normal. No meningeal signs. No neck mass noted. CVS: Normal heart rate and rhythm. Heart sound normal. No murmurs noted. Pulses normal throughout. Respiratory: No respiratory distress. Painless inspiration. Breath sounds normal. No wheezes/rales/rhonchi noted. Chest nontender. No accessory muscle usage noted or decreased air movement noted. Abdomen: Soft and nontender. Bowel sounds normal in all 4 quadrants. No distention noted. No organomegaly noted. No visible injury noted. Back: No CVA tenderness. Full range of motion noted. Skin: Skin warm and dry. Normal skin color. Normal skin turgor. No rashes/lesions/lacerations noted. Extremities: No lower extremity edema. Extremities exhibit normal range of motion. Extremities nontender. Neuro: Oriented X 3. Cranial nerve exam: II-XII are grossly intact No motor deficit. No sensory deficit. Reflexes normal. Course Reevaluation(s) Reevaluation #1: 84-year-old female came in with abdominal pain, nausea no vomiting. History of hysterectomy due to into endometrial carcinoma, CT abdomen pelvis is questioning small-bowel obstruction versus ileus case discussed with surgery on-call who advised to admit the patient to medical service and they will consult. Will consider NG tube placement in the ED. Case discussed with Dr. Wallace to be admitted to the medical service. Time: 19:44 Medical Decision Making Differential Diagnosis Differential Diagnoses: The differential diagnosis associated with the presentation includes (Gastroenteritis, food poisoning, gastritis, colitis, diverticulitis, small-bowel obstruction, ileus, electrolyte derangement, severe anemia) Admission/Observation Consideration of admission/observation: Escalation of care including admission/observation considered Consult Healthcare Provider Management of the patient was discussed with: Hospitalist (Dr. Wallace) and [employer] R[employer] Sling Maker (Dr. Lopez) Lab Data MDM Lab Attestation statement: I reviewed the patient's lab results. 09/06/24 15:04 09/06/24 15:04 Labs: Lab Results 09/06/24 09/06/24 Range/Units 15:04 16:44 WBC 19.6 H (4.8-10.8) X10*3/uL RBC 5.39 (4.20-5.50) X10*6/uL Hgb 16.0 (12.0-16.0) g/dl Hct 47.9 H (37.0-47.0) % MCV 88.9 (80.0-98.0) fL MCH 29.7 (27.0-33.0) pg MCHC 33.4 (31.0-35.0) g/dl RDW 13.1 (11.0-16.0) % Plt Count TNP MPV 10.0 (9.4-12.3) fL Immature Gran % (Auto) Cancelled Neut % (Auto) Cancelled Lymph % (Auto) Cancelled [place] % (Auto) Cancelled Eos % (Auto) Cancelled Baso % (Auto) Cancelled Lymph # (Auto) Cancelled [place] # (Auto) Cancelled Eos # (Auto) Cancelled Baso # (Auto) Cancelled Abs Immat Gran (auto) Cancelled Absolute Neuts (auto) Cancelled Absolute Nucleated RBC 0.000 (0.0-0.012) X10*3/uL Nucleated RBC % (auto) 0.0 (0.0-0.2) /100WBC Neutrophils % (Manual) 93 H (45-73) % Band Neutrophils % 1 L (3-5) % Lymphocytes % (Manual) 5 L (20-40) % Monocytes % (Manual) 1 L (2-11) % Abs Neuts (Manual) 18.4 H (2.0-8.3) X10*3/uL Lymphocytes # (Manual) 1.0 L (1.2-4.9) X10*3/uL Monocytes # (Manual) 0.2 (0.1-1.2) X10*3/uL Platelet Estimate NORMAL (NORMAL) Plt Morphology Comment NORMAL RBC Morphology NOTED Acanthocytes (Spur) 2+ (3-5) /OIF Sodium 134 L (135-145) mmol/L Potassium 3.8 (3.3-5.1) mmol/L Chloride 107 (96-108) mmol/L Carbon Dioxide 15 L (22-29) mmol/L Anion Gap 16 (12-20) BUN 14 (9-16) mg/dL Creatinine 0.63 (0.5-1.4) mg/dL Estim Creat Clear Calc 71.5 Estimated GFR > 60 Random Glucose 154 H (60-115) mg/dL Calcium 9.1 (8.4-10.2) mg/dL Magnesium 2.1 (1.6-2.6) mg/dL Total Bilirubin 0.3 (0.0-1.0) mg/dL AST 31 (5-31) U/L ALT 16 (0-31) U/L Alkaline Phosphatase 119 H (39-117) U/L Total Protein 7.2 (6.5-8.0) g/dL Albumin 3.4 L (3.5-5.0) g/dL Urine Color Dark Yellow Urine Appearance Clear Urine pH 6.0 (5.0-9.0) Ur Specific [place] >= 1.030 H (1.005-1.025) Urine Protein 30 (1+) H (Neg-Trace) mg/dL Urine Glucose (UA) Negative (Negative) mg/dL Urine Ketones Trace (Negative) mg/dL Urine Blood Negative (Negative) Urine Nitrite Negative (Negative) Ur Leukocyte Esterase Negative (Negative) Urine RBC 0-2 (0-2) /HPF Urine WBC 0-5 (0-5) /HPF Ur Squamous Epith Cells 3-5 (0-2) /HPF Urine Bacteria None Seen (None Seen) Hyaline Casts 3-5 (0-2) /LPF Influenza Type A (PCR) NEGATIVE (Negative) Influenza Type B (PCR) NEGATIVE (Negative) RSV RNA Qual (PCR) NEGATIVE (Negative) SARS-CoV-2 RNA (RT-PCR) NEGATIVE (Negative) Independent Interpretation I performed an independent interpretation of an: CT Scan (Abdomen and pelvis:Mild dilation of the small bowel could represent small-bowel obstruction or ileus. Bowel wall thickening with fatty replacement of the ascending colon could represent inflammatory bowel disease. Correlation with colonoscopy findings as indicated. Mild nodular thickening of the ) Radiology Impression Discussion of test interpretation with radiology: I have reviewed the radiologist's reading. Medications Administered Discontinued Medications Generic Name Dose Route Start Last Admin Trade Name Freq PRN Reason Stop Dose Admin Al Hydroxide/Mg Hydroxide 30 ml 09/06/24 15:21 09/06/24 15:48 Magnesium Hydrox/Alum Hydrox 30 Ml Oral.Susp PO 09/06/24 15:22 30 ml ONCE ONE Administration Famotidine 20 mg 09/06/24 15:21 09/06/24 15:49 Famotidine/Pf 20 Mg/2 Ml Vial IVPUSH 09/06/24 15:22 20 mg ONCE ONE Administration Acetaminophen 1,000 mg in 100 mls @ 400 mls/hr 09/06/24 15:21 09/06/24 16:43 Ofirmev IV 09/06/24 15:35 Infused ONCE ONE Infusion Iohexol 85 ml 09/06/24 17:04 09/06/24 17:05 Iohexol 350 Mg/Ml 100 Ml Infus..Btl IV 09/06/24 17:05 85 ml ONCE ONE Administration Morphine Sulfate 1 mg 09/06/24 15:25 09/06/24 15:50 Morphine Sulfate 2 Mg/Ml Cartridge IVPUSH 09/06/24 15:26 1 mg ONCE ONE Administration Protocol Morphine Sulfate 2 mg 09/06/24 17:47 09/06/24 17:55 Morphine Sulfate 2 Mg/Ml Cartridge IVPUSH 09/06/24 17:48 2 mg ONCE ONE Administration Protocol Ondansetron HCl 4 mg 09/06/24 15:21 09/06/24 15:49 Ondansetron Hcl 4 Mg/2 Ml Vial IVPUSH 09/06/24 15:22 4 mg ONCE ONE Administration Critical Care Time Critical Care Time Critical Care Time: Yes Total Critical Care Time: 60 Attestation: The patient was critically ill with a high probability of imminent or life- threatening deterioration. I spent greater than 30 minutes of discontinuous time evaluating the patient, delivering critical care at the bedside, discussing evaluating data with consultants. Critical care time does not include time spent performing separately billable procedures or teaching. Time spent performing critical care was 60 minutes. Discharge Plan Discharge Clinical Impression: Abdominal pain, Small bowel obstruction, Ileus Patient Disposition: Admitted As Inpatient Print Language: Mongolian
[2024-09-06 15:31] LABS: Alanine Aminotransferase 16 U/L (0-31); Albumin Level 3.4 g/dL (3.5-5.0); Anion Gap 16 (12-20); Aspartate Amino Transferase 31 U/L (5-31); Bilirubin Total 0.3 mg/dL (0.0-1.0); Blood Urea Nitrogen 14 mg/dL (9-16); Calcium 9.1 mg/dL (8.4-10.2); Carbon Dioxide 15 mmol/L (22-29); Chloride 107 mmol/L (96-108); Creatinine Clr Calc Pharmacy 71.5; Estimated Glomerular Filt Rate > 60; Glucose Random 154 mg/dL (60-115); Magnesium 2.1 mg/dL (1.6-2.6); Potassium 3.8 mmol/L (3.3-5.1); Sodium 134 mmol/L (135-145); Total Protein 7.2 g/dL (6.5-8.0)
[2024-09-06 15:34] LABS: WBC ABN SCTR FOR CBC 1
[2024-09-06] MEDS: Magnesium Hydrox/Alum Hydrox 30 ML ORAL.SUSP PO (15:48)
[2024-09-06] MEDS: ondansetron HCL 4 MG/2 ML VIAL IVPUSH (15:49)
[2024-09-06] MEDS: Famotidine/PF 20 MG/2 ML VIAL IVPUSH (15:49)
[2024-09-06 15:50] VITALS: RESP 20
[2024-09-06 15:50] LABS: Influenza A PCR NEGATIVE (Negative); Influenza B PCR NEGATIVE (Negative); Resp Syncy Virus RNA Qual PCR NEGATIVE (Negative); SARS COV2 PCR INHOUSE NEGATIVE (Negative)
[2024-09-06] MEDS: Morphine Sulfate 2 MG/ML CARTRIDGE 1 MG IVPUSH (15:50)
[2024-09-06] MEDS: Acetaminophen 1,000 MG/100 ML PIGGYBACK 400 MG IV (15:51)
[2024-09-06 15:54] LABS: Alkaline Phosphatase 119 U/L (39-117)
[2024-09-06 16:07] LABS: Band Neutrophils Percent 1 % (3-5); Lymphocytes Percent Manual 5 % (20-40); Monocytes Percent Manual 1 % (2-11); Neutrophils Percent Manual 93 % (45-73)
[2024-09-06 16:09] LABS: Acanthocytes 2+ (3-5) /OIF; RBC Morphology NOTED
[2024-09-06 16:10] LABS: Platelet Estimate NORMAL (NORMAL); Platelet Morphology Comment NORMAL
[2024-09-06 16:12] LABS: Monocytes Absolute Manual 0.2 X10*3/uL (0.1-1.2); Neutrophils Absolute Manual 18.4 X10*3/uL (2.0-8.3); White Blood Count 19.6 X10*3/uL (4.8-10.8)
[2024-09-06 16:51] LABS: Appearance Urine Clear; Color Urine Dark Yellow; Glucose Urine UA Negative (Negative); Leukocyte Esterase Urine Negative (Negative); Nitrite Urine Negative (Negative); Specific Gravity - Urine >= 1.030 (1.005-1.025); UMIC TRIGGER UACC YES; Urine Blood Negative (Negative); Urine Ketones Trace mg/dL (Negative); Urine Protein 30 (1+) mg/dL (Neg-Trace)
[2024-09-06] MEDS: iohexoL 350 MG/ML 100 ML INFUS..BTL 85 ML IV (17:05)
--- OUTSIDE RECORDS SUMMARY | 2024-09-06 17:32 | XMS_ITS | Patient Health Record ---
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 Name Role Phone Vito Joel Primary Care Provider Allergies No Known Allergies Results Component Value Reference Range Notes Complete Blood Count Auto Di ff Reviewed date:07/06/2024 01:41:47 PM Interpretation: Performing Lab:[facility], [address] [place] [phone] Notes/Report: White Blood Count 5.9 4.8-10.8 X10*3/uL [...] 0.0-0.2 /100WBC Neutrophils Absolute Auto 3.5 2.0-8.3 x10*3/uL Imm Gran Abs Auto 0.01 0.00-0.03 X10*3/uL Lymphocytes Absolute Auto 1.4 1.2-4.9 X10*3/uL Monocytes Absolute Auto 0.9 0.1-1.2 X10*3/uL Eosinophils Absolute Auto 0.1 0.0-0.4 X10*3/uL Basophils Absolute Auto 0.0 0.0-0.2 X10*3/uL NRBC Abs Auto 0.000 0.0-0.012 X10*3/uL Comprehensive Vega. Panel Fa st Reviewed date:07/06/2024 01:53:50 PM Interpretation: Performing Lab:[address] [address] Notes/Report: Sodium 135 135-145 mmol/L Potassium 4.1 [...] Panel Reviewed date:07/06/2024 01:43:16 PM Interpretation: Performing Lab:[address] [address] Notes/Report: Triglycerides 81 <150 mg/dL Desirable Triglyceride: [...] Random Reviewed date:07/06/2024 01:41:54 PM Interpretation: Performing Lab:[facility], [address] [place] [address] Notes/Report: Creatinine Urine 67.54 Microalbumin Urine 25.0 Microalbum/Creatinine Ratio Ur 37.0 <30 ug/mg cr Albumin/Creatinine Ratio Reference Ranges: Normal: < 30 ug/mg creatinine Microalbuminuria: 30 - 300 ug/mg creatinine Clinical Albuminuria: > 300 ug/mg creatinine Hemoglobin A1c Reviewed date:07/06/2024 01:43:25 PM Interpretation: Performing Lab:[facility], [address] [place] [address] Notes/Report: Hemoglobin A1c % 5.6 <6.0 % [...] average glucose, using the formula of the T7B-Rdjtoef Average Glucose study (ADAG), Diabetes Care, Vol.31,#8, Feb. 2007 UA ClnCatch+Micro w/rflx Cul t Reviewed date:07/13/2024 11:30:15 AM Interpretation:JENNIFER 07/13/24 Performing Lab:[facility], [address] [place] [phone] Notes/Report: Urine, Clean Catch Color Urine Yellow Appearance Urine Clear PH 7.0 5.0-9.0 Glucose Urine UA Negative Negative mg/dL Urine Blood Small (1+) Negative Specific [place] - Urine 1.010 1.005-1.025 Urine Protein Negative Neg-Trace mg/dL Urine Ketones Negative Negative mg/dL Nitrite Urine Negative Negative Leukocyte Esterase Urine Moderate (2+) Negative RBC Urine 3-5 0-2 /HPF WBC Urine 6-10 0-5 /HPF Squamous Epithelial Cell Urine 3-5 0-2 /HPF Bacteria Urine 1+ None Seen Hyaline Casts Urine 0-2 0-2 /LPF Occult Blood, Stool, Guaiac Reviewed date:07/13/2024 01:43:12 PM Interpretation:Negative Performing Lab: Notes/Report: Negative Occult Blood, Stool, Guaiac Neg US retroperitoneal comp Reviewed date:09/24/2023 12:57:21 PM Interpretation: Performing Lab: Notes/Report: [address] [place] [address] Ultrasound Report Signed Patient: Maria Ines Kam MR#: [id number] 983 : 1940 Acct:[id number] Age/Sex: 83 / F ADM Date: 09/22/23 Loc: HO.US Attending Dr: Cyndy CHO Ordering Physician: Cyndy Washington Date of Service: 09/22/23 Procedure(s): US retroperitoneal comp Accession Number(s): [id number] cc: Vito Joel MD; Cyndy Washington EXAMINATION: US RETROPERITONEAL COMPLETE (RENAL) CLINICAL INFORMATION: [...] in OV> 09/24/23 1247 DD/ 1024 TD/TT: Dining Service Inspector: [place] [address] Ultrasound Report Signed Patient: Armin Kam MR#: [id number] 983 : 1940 Acct:[id number] Age/Sex: 83 / F ADM Date: 09/22/23 Loc: HO.US Attending Dr: Cyndy CHO Ordering Physician: Cyndy Washington Date of Service: 09/22/23 Procedure(s): US retroperitoneal comp Accession Number(s): [id number] cc: Vito Joel MD; Cyndy Washington EXAMINATION: US RETROPERITONEAL COMPLETE (RENAL) CLINICAL INFORMATION: Other microscopic hematuria. COMPARISON: None available. TECHNIQUE: Real-time imaging of the kidneys and bladder. FINDINGS: RIGHT KIDNEY: 11.0 x 4.1 x 5.4 cm (SAG x AP x TRV). The kidney is normal in size, contour, and echogenicity. Renal cortical thickness is normal. No renal calculi or hydronephrosis. Simple appearing 9 mm midpole cyst for whi ch no follow-up imaging is usually warranted. LEFT KIDNEY: 9.6 x 5 .4 x 4.5 cm (SAG x AP x TRV). The kidney is normal in size, contour, an d echogenicity. Renal cortical thickness is normal. No renal calculi or hydronephrosis. Simple appearing 5 mm midpole cyst for which no follow- up imaging is usually warranted. BLADDER: Well disten ded and normal. Bilateral ureteral jets are demonstrated. Prevoi d bladder volume is 100 mL. There is no postvoid bladder residual identified. US/US retroperitoneal comp IMPRESSION: No renal calculi or hydronephrosis of either kidney. Dictated By: Talon Saleh MD Signed By: <Electronically signed by Talon Saleh MD in OV> 09/24/23 1247 DD/ 1024 TD/TT: Dining Service Inspector: PD XR hip LT min 2V Reviewed date:06/18/2024 02:18:50 PM Interpretation: Performing Lab: Notes/Report: [facility] [address] [place] [address] Drive [address] [place] [address] XRay Report Signed Patient: Maria Ines Kam MR#: [id number] 983 : 1940 Acct:[id number] Age/Sex: 84 / F ADM Date: 04/20/24 Loc: HO.HOSX Attending Dr: Julissa Lama MD Ordering Physician: Julissa Apple Date of Service: 04/20/24 Procedure(s): XR hip LT min 2V Accession Number(s): [id number] cc: Vito Joel MD; Julissa Apple EXAMINATION: [...] by: Julien Espinoza MD 06/16/2024 04:07 PM [facility] [place]ict[place] By: Julien Espinoza MD Signed By: <Electronically signed by Julien Espinoza MD in OV> 06/16/24 1607 DD/ 0954 TD/TT: 04/20/24 0958 Dining Service Inspector: [facility] [address] [place] [address] XRay Report Signed Patient: Armin Kam MR#: [id number] 983 : 1940 Acct:[id number] Age/Sex: 84 / F ADM Date: 04/20/24 Loc: HO.HOSX Attending Dr: Julissa Lama MD Ordering Physician: Julissa Apple Date of Service: 04/20/24 Procedure(s): XR hip LT min 2V Accession Number(s): [id number] cc: Vito Joel MD; Julissa Apple EXAMINATION: XR HIP LEFT 2 VIEWS CLINICAL INFORMATION: Unilateral primary osteoarthritis, 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 Rule out facture. COMPARISON: XR Left hip 08/04/19 (report only). TECHNIQUE: Two views of the lef t hip. FINDINGS: There is normal bone mineralization. There has been a tot al left hip arthroplasty. Femoral, and acetabular components are intac t, well seated, in anatomic alignment. No periprosthetic fracture. No evidence of subsidence or periprosthetic lucencies. No soft tissue abnormalities. XR/XR hip LT min 2V IMPRESSION: Left hip arthroplast y without acute complication. No fracture. Electronically cristiane d by: Julien Espinoza MD 06/16/2024 04:07 PM [facility] [place] Dictated By: Julien Espinoza MD Signed By: <Electronically signed by Julien Espinoza MD in OV> 06/16/24 1607 DD/ 0954 TD/TT: 04/20/24 0958 Dining Service Inspector: XR lumbar spine 2-3V Reviewed date:06/18/2024 02:19:34 PM Interpretation: Performing Lab: Notes/Report: [facility] [address] [place] [address] XRay Report Signed Patient: Maria Ines Kam MR#: [id number] 983 : 1940 Acct:[id number] Age/Sex: 84 / F ADM Date: 04/20/24 Loc: HO.HOSX Attending Dr: Julissa Lama MD Ordering Physician: Julissa Apple Date of Service: 04/20/24 Procedure(s): XR lumbar spine 2-3V Accession Number(s): [id number] cc: Vito oJel MD; Julissa Apple EXAMINATION: XR LUMBOSACRAL SPINE [...] by: Julien Espinoza MD 06/16/2024 04:03 PM [facility] [place] Dictated By: Julien Espinoza MD Signed By: <Electronically signed by Julien Espinoza MD in OV> 06/16/24 1603 DD/ 0954 TD/TT: 04/20/24 0958 Dining Service Inspector: [facility] [address] [place] [address] XRay Report Signed Patient: Armin Kam MR#: [id number] 983 : 1940 Acct:[id number] Age/Sex: 84 / F ADM Date: 04/20/24 Loc: SAVANNAH Attending Dr: Julissa Lama MD Ordering Physician: Julissa Apple Date of Service: 04/20/24 Procedure(s): XR lum bar spine 2-3V Accession Number(s): [id number] cc: Vito Joel MD; Julissa Apple EXAMINATION: XR LUMBOSACRAL SPINE 3 VIEWS CLINICAL INFORMATION: Dorsalgia, unspecifi ed M54.9. Rule out fracture. COMPARISON: None. TECHNIQUE: [...] and surgical clips in the left lower quadr ant region. Partially imaged rig ht hip replacement. XR/XR lumbar spine 2-3V IMPRESSION: 1. No acute lumbar findings. 2. Moderate levoconv ex scoliosis with rotatory component. 3. Degenerative spondylosis, at least moderate in severity. Electronically cristiane d by: Julien Espinoza MD 06/16/2024 04:03 PM [facility] [place] Dictated By: Julien Espinoza MD Signed By: <Electronically signed by Julien Espinoza MD in OV> 06/16/24 1603 DD/ 0954 TD/TT: 04/20/24 0958 Dining Service Inspector: XR hip RT min 2V Reviewed date:06/18/2024 02:20:56 PM Interpretation: Performing Lab: Notes/Report: [facility] [address] [place] [address] [address] [place] [address] XRay Report Signed Patient: Maria Ines Kam MR#: [id number] 983 : 1940 Acct:[id number] Age/Sex: 84 / F ADM Date: 04/20/24 Loc: HO.HOSX Attending Dr: Julissa Lama MD Ordering Physician: Julissa Apple Date of Service: 04/20/24 Procedure(s): XR hip RT min 2V Accession Number(s): [id number] cc: Vito Joel MD; Julissa Apple EXAMINATION: [...] Espinoza MD in OV> 06/16/24 1605 DD/ TD/TT: 04/20/24957 Dining Service Inspector: [facility] [address] [place] [address] XRay Report Signed Patient: Armin Kam MR#: [id number] 983 : 1940 Acct:[id number] Age/Sex: 84 / F ADM Date: 04/20/24 Loc: HO.HOSX Attending Dr: Julissa Lama MD Ordering Physician: Julissa Apple Date of Service: 04/20/24 Procedure(s): XR hip RT min 2V Accession Number(s): [id number] cc: Vito Joel MD; Julissa Apple EXAMINATION: XR HIP RIGHT 2 VIEWS CLINICAL INFORMATION: Pain in right hip M25.551. Rule out fracture. COMPARISON: XR Pelvis 07/29/2010 (report only). TECHNIQUE: Two views of the rig ht hip. FINDINGS: There is normal bone mineralization. There has been a tot al right hip arthroplasty. Femoral, and acetabular components are intac t, well seated, in anatomic alignment. No periprosthetic fracture. No evidence of subsidence or periprosthetic lucencies. No soft tissue abnormalities. XR/XR hip RT min 2V IMPRESSION: Right hip arthroplas ty without acute complication. No fracture. Electronically cristiane d by: Julien Espinoza MD 06/16/2024 04:05 PM EST RP Dictated By: Julien Espinoza MD Signed By: <Electronically signed by Julien Espinoza MD in OV> 06/16/24 1605 DD/ 3 TD/TT: 04/20/24957 Dining Service Inspector: XR sacrum coccyx min 2V Reviewed date:06/18/2024 02:20:28 PM Interpretation: Performing Lab: Notes/Report: [facility] [address] [place] [address] Drive [address] [place] [address] XRay Report Signed Patient: Maria Ines Kam MR#: [id number] 983 : 1940 Acct:[id number] Age/Sex: 84 / F ADM Date: 04/20/24 Loc: HO.HOSX Attending Dr: Julissa Lama MD Ordering Physician: Julissa Apple Date of Service: 04/20/24 Procedure(s): XR sacrum coccyx min 2V Accession Number(s): [id number] cc: Vito Joel MD; Julissa Apple EXAMINATION: [...] by: Julien Espinoza MD 06/16/2024 04:10 PM [facility] [place] Dictated By: Julien Espinoza MD Signed By: <Electronically signed by Julien Espinoza MD in OV> 06/16/24 1610 DD/ 3 TD/TT: 04/20/24957 Dining Service Inspector: [facility] [address] [place] [address] [address] [place] [address] XRay Report Signed Patient: Armin Kam MR#: [id number] 983 : 1940 Acct:[id number] Age/Sex: 84 / F ADM Date: 04/20/24 Loc: HO.HOSX Attending Dr: Julissa Lama MD Ordering Physician: Julissa Apple Date of Service: 04/20/24 Procedure(s): XR sac rum coccyx min 2V Accession Number(s): [id number] cc: Vito Joel MD; Julissa Apple EXAMINATION: XR SACRUM AND COCCYX 3 VIEWS CLINICAL INFORMATION: Sacrococcygeal disorders, not elsewhere classified M53.3. COMPARISON: XR Lumbar spine 04/20/2024 TECHNIQUE: 3 views of the sacru m and 2 views of the coccyx were obtained. FINDINGS: No definite fracture , or suspicious bone lesion. Coccyx has a normal appearance. The SI joints demonstrate somewhat advanced arthritic changes, with evidence of vacuum phenomenon and subtle periarticular sclerosis and erosions bilaterally . Findings suggest inflammatory arthropathy. Bilateral hip arthroplasties in place without complication seen. No soft tissue abnormality. Surgical clips left lower quadrant. XR/XR sacrum coccyx min 2V IMPRESSION: 1. 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 2. No acute bony abnormalities. Bilateral hip arthroplasties without complication. Electronically cristiane d by: Julien Espinoza MD 06/16/2024 04:10 PM [facility] [place] Dictated By: Julien Espinoza MD Signed By: <Electronically signed by Julien Espinoza MD in OV> 06/16/24 1610 DD/ 0954 TD/TT: 04/20/24 0958 Dining Service Inspector: Urine Culture Reviewed date:07/13/2024 12:31:12 PM Interpretation: Performing Lab:[facility], [address] [place] [phone] Notes/Report: O:ESCCOL Escherichia coli Urine Culture Quant Urine Culture > 100,000 cfu/mL Ampicillin 8 Cefazolin 2 Cefepime <=0.12 Ceftriaxone <=0.25 Ciprofloxacin <=0.06 Gentamicin <=1 Nitrofurantoin <=16 Trimethoprim/Sulfamethox azole <=20 Reason For Referral No Information Medications Medication SIG (Take, Route, Frequency, Duration) Notes Start Date End Date Status Aspir-81 81 MG 1 tablet Orally Once a day for 30 day(s) Active Molnupiravir 200 MG 4 capsules Orally ev dara 12 hrs for 5 day(s) 03/23/2024 Active Lisinopril-hydroCHLOROthi azide 10-12.5 mg TAKE 1 TABLET DAILY Orally Once a day Active Atorvastatin Calcium 80 MG TAKE 1 TABLET DAILY Orally Once a day Active Nystatin-Triamcinolone 114515-5.1 UNIT/GM 1 application to affected area Externally Twice a day for 30 days 09/21/2017 Not-Taking carBAMazepine 200 MG TAKE 1 TABLET TWICE A DAY Orally Twice a day Active Cephalexin 500 MG 1 capsule Orally twi ce a day for 5 days 07/11/2024 Active Immunizations Vaccine Route Administration Date Status Comme nts [...] Administered pt was given the vaccine at [facility] in [place]. 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 (802266459) Diabetic autonomic neuropathy associated with type 2 diabetes mellitus (E11.43) Active confirmed Problem 109917817 History of endom etrial cancer (Z85.42) Active confirmed Problem 907315625 Pure hypercholesterolemia (E78.00) Active confirmed Problem 145617710 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) Active confirmed Problem Intermittent spinal claudication (318867305) Intermittent spinal claudication (G95.19) Active confirmed Vital Signs Blood pressure diastolic 64 mm Hg 07/13/2024 Height 65.25 in 07/13/2024 Blood pressure systolic 142 mm Hg 07/13/2024 Weight 182 lbs 07/13/2024 BMI 30.05 kg/m2 07/13/2024 Encounters Encounter Location Date Provider Diagnosis Vito Joel MD [address] [place], [place] [id number] 07/06/2024 Vito Joel Blood tests for rout ine general physical examination Z00.00 ; Essential hypertension I10 ; Prediabetes R73.09 and Pure hypercholesterolemia E78.00 Vito Joel MD [address] [place] [id number] 03/23/2024 Vito Joel Acute COVID-19 U07.1 Vito Joel MD [address] [place] [id number] 07/13/2024 Vito Joel Essential hypertensi on I10 ; Annual physical exam Z00.00 ; Pure hypercholesterolemia E78.00 ; 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 ; Diabetic autonomic neuropathy associated with type 2 diabetes mellitus E11.43 ; Colon cancer screening Z12.11 and Depression screening Z13.31 Vito Joel MD [address] [place] [id number] 10/11/2023 Vito Joel Essential hypertensi on I10 Vito Joel MD [address] [place] [id number] 01/11/2024 Vito Joel MD [address] [place] [id number] 03/23/2024 Vito Joel Acute COVID-19 U07.1 Vito Joel MD [address] [place] [id number] 04/24/2024 Vito Joel MD [address] [place] [id number] 06/13/2024 Vito Joel Essential hypertensi on I10 Vito Joel MD [address] [place] [id number] 07/11/2024 Vito Joel Assessments Encounter Date Diagnosis (ICD Code) Assessment Notes Treatment Notes Treatment Clinical Notes Section Notes 07/06/2024 [address] ine general physical examination (ICD-10 - Z00.00) 07/06/2024 Essential hypertensi on (ICD-10 - I10) 03/23/2024 Acute COVID-19 (ICD- 10 - U07.1) patient verbalized understanding of medication and directions for use 07/13/2024 Essential hypertensi on (ICD-10 - I10) well controlled, will contiue curent regiment 07/13/2024 Annual physical exam (ICD-10 - Z00.00) labs reviewed and discussed with patient 10/11/2023 Essential hypertensi on (ICD-10 - I10) 03/23/2024 Acute COVID-19 (ICD- 10 - U07.1) 06/13/2024 Essential hypertensi on (ICD-10 - I10) 07/06/2024 Prediabetes (ICD-10 - R73.09) 07/13/2024 Pure hypercholesterolemia (ICD-10 - E78.00) stable, will contiue to monitor 07/06/2024 Pure hypercholesterolemia (ICD-10 - E78.00) 07/13/2024 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 (ICD-10 - G40.109) has not had any seizures in years 07/13/2024 Diabetic autonomic neuropathy associated with type 2 diabetes mellitus (ICD-10 - E11.43) sugars well controlled, no need for medication at this time 07/13/2024 Colon cancer screeni ng (ICD-10 - Z12.11) guaiac negative 07/13/2024 Depression screening (ICD-10 - Z13.31) negative screen Plan Of Treatment Pending Test Test Name Order Date Electrocardiogram (EKG) 11/25/2012 Electrocardiogram (EKG) 02/27/2016 CARDIOVASCULAR STRESS TEST 11/12/2022 Next Appt Details Provider Name:Vito romero, 01/09/2025 08:00:00 AM, [address] [place] [address], [address], [phone], Provider Name:Vito romero, 01/16/2025 10:00:00 AM, [address] [place] [address], [address], [phone], Provider Name:Vito romero, 07/10/2025 08:00:00 AM, [address] [place] [address], [address], [phone], Provider Name:Vito romero, 07/17/2025 01:00:00 PM, [address] [place] [address], [address], [phone], Insurance Providers Payer Name Payer Address Payer Phone Subscriber Number Group Number Insured Name Patient Relationship to Insured Coverage Start Date Coverage End Date [facility] [address] [place] [phone] [id number] Maria Ines Kam Self - patient is the insured Medical (General) History Medical History History ICD Code hysterectomy (2002) and oopherectomy endometrial cancer - 200211/24/2012 - refuses Colonsco py 2013; REFUSED COLONOSCOPY - DON'T ASK AGAIN 08/17/16 Prediabetes R73.09 Prediabetes Surgical History Surgery Date(Month/Year) left hip replacement 07/2010 right hip replacement 07/1994
[2024-09-06 17:46] VITALS: BP 146/65; PULSE 66; RESP 18; TEMP 36.4; O2SAT 96
[2024-09-06 17:55] VITALS: RESP 20
[2024-09-06] MEDS: Morphine Sulfate 2 MG/ML CARTRIDGE IVPUSH (17:55)
[2024-09-06 18:29] LABS: Bacteria Urine None Seen (None Seen); WBC Urine 0-5 /HPF (0-5)
[2024-09-06 18:34] LABS: RBC Urine 0-2 /HPF (0-2)
[2024-09-06 19:04] VITALS: BP 126/66; PULSE 69; RESP 14; O2SAT 94
--- NOTE | 2024-09-06 19:56 | P.HPHOSP_ITS ---
History of Present Illness Date of Service: 09/06/24 Attending physician on admission: Jose Wallace Chief Complaint: Abdominal pain Pt is an 84-year-old female with a PMH significant for?HLD, HTN, peripheral neuropathy, hx of endometrial cancer, hx of hysterectomy, and chronic lower back pain secondary to intermittent spinal claudication who presents to the ED with?abdominal pain, nausea, vomiting and diarrhea since this morning. Pt reports was in her normal state of health yesterday, but upon awakening this morning had intense abdominal pain and cramping in a band across her abdomen that radiated to her back. Multiple episodes of nausea and vomiting, and initially some small amounts of diarrhea. Subjective fever and chills this morning, but never measured temperature. Pt reports previous surgical hx of complete hysterectomy secondary to endometrial cancer 20 years ago. Denies past hx of SBO. Pt reports feels dilated and bloated. Has not passed gas recently. No chest pain/pressure, palpitations. Denies shortness or breath or difficulty breathing. In the ED pt was initially hypertensive at 164/84, vitals otherwise stable and WNL. Labs were significant for leukocytosis 19.6, sodium 134, and alk-phos mildly elevated at 119. Stable H&H. Renal function WNL. UA negative for UTI. Tested negative for flu, COVID, RSV. CT?of abdomen and pelvis showed mild dilation of small bowel that could represent small bowel obstruction or ileus. Also showed bowel wall thickening with fatty replacement of ascending colon possibly representing inflammatory bowel disease, and mild nodular thickening of liver surface with small ascites and liver cirrhosis can not be excluded. Pt was treated with Maalox, famotidine morphine, acetaminophen, and ondansetron. Pt will be admitted to the hospital for treatment and further evaluation of intractable nausea, vomiting, and abdominal pain concerning for SBO vs ileus. Review of Systems 2 Review of Systems: Negative except for that which is stated in the HPI. [facility] Medical History Lumbar spondylosis Autonomic neuropathy due to type 2 diabetes mellitus History of seizure disorder Intermittent spinal claudication Neuropathy Localization-related (focal) (partial) symptomatic epilepsy and epileptic syndromes with simple partial seizures, not intractable, without status epilepticus Hypercholesteremia Essential hypertension Endometrial cancer Surgical History History of hysterectomy with bilateral oophorectomy Social History Alcohol intake: current Alcohol intake frequency: holidays/special occasions only Patient Tobacco Use Status: Never used Tobacco Smoked in Last 30 Days: No Use of substances other than those prescribed or required for medical reasons: No Advance Directives: No Advance Directives Information Provided: Yes Current occupational status: retired Meds Allergies Allergy/AdvReac Type Severity Reaction Status Date / Time No Known Allergies Allergy Verified 09/06/24 14:15 Home Medications ?Medication ?Instructions ?Recorded ?Confirmed ?Last Taken ?Type aspirin 81 mg tablet,delayed 81 mg PO DAILY 08/17/23 07/06/24 Unknown History release atorvastatin 80 mg tablet 80 mg PO DAILY 08/17/23 07/06/24 Unknown History carbamazepine 200 mg tablet 200 mg PO BID 08/17/23 07/06/24 Unknown History lisinopril 10 1 tab PO DAILY 08/17/23 07/06/24 Unknown History mg-hydrochlorothiazide 12.5 mg tablet Physical Exam 2 Vital Signs and Narrative: Vital Signs: Last Vital Signs Temp 97.5 F 09/06/24 17:46 Pulse 69 09/06/24 19:04 Resp 14 09/06/24 19:04 BP 126/66 09/06/24 19:04 Pulse Ox 94 09/06/24 19:04 O2 Del Method Room Air 09/06/24 19:04 BMI result Body Mass Index 33.5 General: AOx3, no acute distress. NGT in place without significant output Resp: CTA bilaterally CVS: S1, S2, RRR GI: +BS, mild distention, diffuse tenderness most pronounced in RLQ Skin: Warm, dry Neuro: Cranial nerves II-XII grossly intact bilaterally. Motor grossly intact bilaterally Extremities: No edema Psych: Appropriate affect Results Labs 09/06/24 15:04 09/06/24 15:04 Labs: Laboratory Results - last 24 hr 09/06/24 09/06/24 15:04 16:44 MCV 88.9 MCH 29.7 MCHC 33.4 RDW 13.1 Plt Count TNP MPV 10.0 Immature Gran % (Auto) Cancelled Neut % (Auto) Cancelled Lymph % (Auto) Cancelled Sharkey % (Auto) Cancelled Eos % (Auto) Cancelled Baso % (Auto) Cancelled Lymph # (Auto) Cancelled Sharkey # (Auto) Cancelled Eos # (Auto) Cancelled Baso # (Auto) Cancelled Abs Immat Gran (auto) Cancelled Absolute Neuts (auto) Cancelled Absolute Nucleated RBC 0.000 Nucleated RBC % (auto) 0.0 Neutrophils % (Manual) 93 H Band Neutrophils % 1 L Lymphocytes % (Manual) 5 L Monocytes % (Manual) 1 L Abs Neuts (Manual) 18.4 H Lymphocytes # (Manual) 1.0 L Monocytes # (Manual) 0.2 Platelet Estimate NORMAL Plt Morphology Comment NORMAL RBC Morphology NOTED Acanthocytes (Spur) 2+ (3-5) Anion Gap 16 Estim Creat Clear Calc 71.5 Estimated GFR > 60 Random Glucose 154 H Calcium 9.1 Magnesium 2.1 Total Bilirubin 0.3 AST 31 ALT 16 Alkaline Phosphatase 119 H Total Protein 7.2 Albumin 3.4 L Urine Color Dark Yellow Urine Appearance Clear Urine pH 6.0 Ur Specific [place] >= 1.030 H Urine Protein 30 (1+) H Urine Glucose (UA) Negative Urine Ketones Trace Urine Blood Negative Urine Nitrite Negative Ur Leukocyte Esterase Negative Urine RBC 0-2 Urine WBC 0-5 Ur Squamous Epith Cells 3-5 Urine Bacteria None Seen Hyaline Casts 3-5 Influenza Type A (PCR) NEGATIVE Influenza Type B (PCR) NEGATIVE RSV RNA Qual (PCR) NEGATIVE SARS-CoV-2 RNA (RT-PCR) NEGATIVE Assessment and Plan (1) Intractable abdominal pain: Status: Acute Plan Pt is an 84-year-old female with a PMH significant for?HLD, HTN, peripheral neuropathy, hx of endometrial cancer, hx of hysterectomy, and chronic lower back pain secondary to intermittent spinal claudication who presents to the ED with?abdominal pain, nausea, vomiting and diarrhea since this morning. Pt will be admitted to the hospital for treatment and further evaluation of intractable nausea, vomiting, and abdominal pain concerning for SBO vs ileus. Intractable abdominal pain with N/V/D Symptom onset this morning upon wakening CT showing question of SBO vs ileus NGT in place with initially little output appreciated Treat with bowel rest, IVF, antiemetics, analgesics General surgery consult Leukocytosis WBCs 19.6 at time of presentation Likely reactionary, not due to active infection No indication for antibiotics at this time Abnormal CT findings CTA of abdomen/pelvis found evidence of possible IBD and liver cirrhosis Follow up outpatient for colonoscopy and/or GI consult HLD Continue statin, aspirin HTN Continue lisinopril, hydrochlorothiazide Chronic lower back pain Continue carbamazepine DNR/DNI, verifid with pt Attending:?Dr. Wallace DVT Prophylaxis: Pnuematic compression due to possible surgical procedure for SBO Pt will require a hospitalization of at least two nights for treatment of?intractable abdominal pain with N/V/D with findings concerning for SBO vs ileus. Given that pt can not tolerate p.o. intake, they will require hospital level care for administration of IV analgesics, IV antiemetics, and close monitoring of bowel function for possible emergent surgical procedure. Quality Stroke Does the patient have a stroke diagnosis?: No VTE Prior VTE?: No VTE Risk Level:: Medical - moderate - high VTE Device Contraindication: N/A - Device Ordered VTE Drug Contraindication: Treatment Not Indicated
[2024-09-06] MEDS: Lactated Ringers 1,000 ML 100 ML IVCONT (20:55)
--- NOTE | 2024-09-06 20:59 | PC.NURSE ---
Addendum entered by Candace Armstrong RN 09/07/24 01:48: 16fr NG tube placed, not 18fr written in error. Original Note: placed 18fr NG tube with Jayde MOYA, pt tolerated well. NG tube hooked up to low intermittent suction per MD.
[2024-09-06] MEDS: Morphine Sulfate 4 MG/ML CARTRIDGE 2 MG IVPUSH (21:12)
--- NOTE | 2024-09-06 21:31 | PHA.MEDREC ---
Addendum entered by London Pizarro 09/06/24 21:37: reviewed Original Note: Pharmacy Consult ? Medication Reconciliation Pharmacy has completed the medication reconciliation. Spoke with patient and she confirmed her medications. Patient confirmed she took her medications this morning.
[2024-09-07] VITALS (8 sets, daily range): BP systolic 90–115; BP diastolic 44–93; PULSE 74–82; RESP 14–19; TEMP 36.2–36.7; O2SAT 86–97
--- NOTE | 2024-09-07 | ECG_ITS ---
Test Reason : CHEST PAIN Blood Pressure : */* mmHG Vent. Rate : 76 BPM Atrial Rate : 76 BPM P-R Int : 146 ms QRS Dur : 88 ms QT Int : 428 ms P-R-T Axes : 11 -16 75 degrees QTcB Int : 481 ms Normal sinus rhythm Minimal voltage criteria for LVH, may be normal variant ( R in aVL ) Nonspecific ST abnormality Abnormal ECG When compared with ECG of 30-Jul-2010 16:50, No significant changes seen Referred By: Sara Valadez Electronically Signed By: CAMERON ELLER MD
--- NOTE | 2024-09-07 01:45 | PC.NURSE ---
EDT noted pts IV was dislodged. Dry clean dressing applied to site, bleeding controlled. 20G Iv placed in pt RAC pt tolerated well.
[2024-09-07] MEDS: Morphine Sulfate 4 MG/ML CARTRIDGE 2 MG IVPUSH ×2 (01:53→12:51)
[2024-09-07 05:18] LABS: Hematocrit 51.4 % (37.0-47.0); Hemoglobin 17.3 g/dl (12.0-16.0); Mean Corpuscular HGB Conc 33.7 g/dl (31.0-35.0); Mean Corpuscular Hemoglobin 29.5 pg (27.0-33.0); Mean Corpuscular Volume 87.7 fL (80.0-98.0); Mean Platelet Volume 9.7 fL (9.4-12.3); Platelet Count 447 X10*3/uL (160-400); Red Blood Count 5.86 X10*6/uL (4.20-5.50); Red Cell Distribution Width 13.5 % (11.0-16.0); White Blood Count 21.7 X10*3/uL (4.8-10.8)
[2024-09-07 05:33] LABS: Anion Gap 19 (12-20); Blood Urea Nitrogen 22 mg/dL (9-16); Calcium 9.3 mg/dL (8.4-10.2); Carbon Dioxide 19 mmol/L (22-29); Chloride 103 mmol/L (96-108); Creatinine Clr Calc Pharmacy 36.9; Estimated Glomerular Filt Rate 42; Glucose Random 176 mg/dL (60-115); Potassium 3.9 mmol/L (3.3-5.1); Sodium 137 mmol/L (135-145)
--- NOTE | 2024-09-07 07:56 | P.CONGS_ITS ---
History of Present Illness Consult details Consult date: 09/07/24 Narrative: 84-year-old female presenting with complaints of bandlike abdominal pain across the abdomen starting yesterday morning. She reports multiple episodes of nausea and vomiting and a small amount of diarrhea. She also complained of fever and chills. She is status post total abdominal hysterectomy due to endometrial cancer 20 years ago. Her past history is also significant for hyperlipidemia, hypertension, peripheral neuropathy and chronic low back pain. Patient presented to the emergency department for further evaluation was noted to have a leukocytosis of 19.6 and a mildly elevated alkaline phosphatase of 119. CT abdomen and pelvis noted mild dilatation of the small bowel suggestive of ileus or small-bowel obstruction. Wall thickening was noted in the ascending colon possibly representing inflammatory bowel disease. Liver cirrhosis could not be excluded. In the ED and nasogastric tube was placed in his currently aspirating clear nonbilious fluid. The patient reports feeling improved with less abdominal pain and no further nausea. She denies any flatus or BM. She does feel bloated as well. Review of Systems 2 Review of Systems: Yes all other systems are reviewed and are negative Gastrointestinal: Gastrointestinal: Reports abdominal pain, Reports bloating, Reports nausea and Reports vomiting PMFSH Past Medical History Medical History Lumbar spondylosis Autonomic neuropathy due to type 2 diabetes mellitus History of seizure disorder Intermittent spinal claudication Neuropathy Localization-related (focal) (partial) symptomatic epilepsy and epileptic syndromes with simple partial seizures, not intractable, without status epilepticus Hypercholesteremia Essential hypertension Endometrial cancer Surgical History Surgical History History of hysterectomy with bilateral oophorectomy Social History Social History Alcohol intake: current Alcohol intake frequency: holidays/special occasions only Patient Tobacco Use Status: Never used Tobacco Smoked in Last 30 Days: No Use of substances other than those prescribed or required for medical reasons: No Advance Directives: No Advance Directives Information Provided: Yes Current occupational status: retired [employer] Allergies Allergy/AdvReac Type Severity Reaction Status Date / Time No Known Allergies Allergy Verified 09/06/24 14:15 Active Medications: Current Medications Acetaminophen (Acetaminophen 325 Mg Tablet) 650 mg PO Q6H PRN PRN Reason: Pain, Mild 1-3,fever,headache Lactated Ringer's (Lr) 1,000 mls @ 100 mls/hr IVCONT .Q10H [facility] Last Admin: 09/06/24 20:55 Dose: 100 mls/hr Morphine Sulfate (Morphine Sulfate 4 Mg/Ml Cartridge) 2 mg IVPUSH Q4H PRN; Protocol PRN Reason: Pain, Severe (Pain Scale 7-10) Last Admin: 09/07/24 01:53 Dose: 2 mg Ondansetron HCl (Ondansetron Hcl 4 Mg/2 Ml Vial) 4 mg IVPUSH Q8H PRN PRN Reason: Nausea and Vomiting Sodium Chloride (0.9 % Sodium Chloride Flush 3 Ml Syringe) 3 ml IVFLUSH QSHIFT [facility] Last Admin: 09/07/24 00:49 Dose: Not Given Home Medications ?Medication ?Instructions ?Recorded ?Confirmed ?Last Taken ?Type aspirin 81 mg tablet,delayed 81 mg PO DAILY 08/17/23 09/06/24 09/06/24 History release atorvastatin 80 mg tablet 80 mg PO BEDTIME 08/17/23 09/06/24 09/05/24 History carbamazepine 200 mg tablet 200 mg PO BID 08/17/23 09/06/24 09/06/24 History lisinopril 10 1 tab PO DAILY 08/17/23 09/06/24 09/06/24 History mg-hydrochlorothiazide 12.5 mg tablet Physical Exam 2 Vital Signs: Vital Signs: Last Vital Signs Temp 97.9 F 09/07/24 06:06 Pulse 82 09/07/24 06:06 Resp 19 09/07/24 06:06 BP 99/54 L 09/07/24 06:06 Pulse Ox 93 09/07/24 06:06 O2 Del Method Room Air 09/07/24 06:06 BMI result Body Mass Index 33.5 Const: General: cooperative and no acute distress Nutritional Appearance: w ell nourished Orientation/consciousness: patient oriented x3 Limitations: no limitations HEENT: Head: Yes normocephalic and Yes atraumatic Ears: hearing grossly normal bilaterally Resp: Effort & Inspection: normal respiratory effort, no audible wheezes, no cough and no respiratory distress Cardio: Jugular venous distension: no JVD GI: Inspection: Yes normal to inspection and Yes distended Palpation (GI): Soft to palpation, nontender, no guarding and not rigid Percussion: Yes tympanic to percussion Auscultation: abnormal bowel sounds Rectal Exam - Female: deferred Skin: Other: Warm, dry, no rash Neuro: General: patient oriented x3 Extrem: General: Yes no clubbing, cyanosis or edema Results Labs 09/07/24 05:03 09/07/24 05:03 Labs: Abnormal lab results 09/06/24 09/06/24 09/07/24 Range/Units 15:04 16:44 05:03 WBC 19.6 H 21.7 H (4.8-10.8) X10*3/uL RBC 5.86 H (4.20-5.50) X10*6/uL Hgb 17.3 H (12.0-16.0) g/dl Hct 47.9 H 51.4 H (37.0-47.0) % Plt Count 447 H D (160-400) X10*3/uL Neutrophils % (Manual) 93 H (45-73) % Band Neutrophils % 1 L (3-5) % Lymphocytes % (Manual) 5 L (20-40) % Monocytes % (Manual) 1 L (2-11) % Abs Neuts (Manual) 18.4 H (2.0-8.3) X10*3/uL Lymphocytes # (Manual) 1.0 L (1.2-4.9) X10*3/uL Sodium 134 L (135-145) mmol/L Carbon Dioxide 15 L 19 L (22-29) mmol/L BUN 22 H (9-16) mg/dL Random Glucose 154 H 176 H (60-115) mg/dL Alkaline Phosphatase 119 H (39-117) U/L Albumin 3.4 L (3.5-5.0) g/dL Ur Specific [place] >= 1.030 H (1.005-1.025) Urine Protein 30 (1+) H (Neg-Trace) mg/dL Short CBC 09/06/24 09/07/24 Range/Units 15:04 05:03 WBC 19.6 H 21.7 H (4.8-10.8) X10*3/uL Hgb 16.0 17.3 H (12.0-16.0) g/dl Hct 47.9 H 51.4 H (37.0-47.0) % Plt Count TNP 447 H D BMP 09/06/24 09/07/24 15:04 05:03 Sodium 134 L 137 Potassium 3.8 3.9 Chloride 107 103 Carbon Dioxide 15 L 19 L BUN 14 22 H Creatinine 0.63 1.22 Calcium 9.1 9.3 Liver Function 09/06/24 Range/Units 15:04 Total Bilirubin 0.3 (0.0-1.0) mg/dL AST 31 (5-31) U/L ALT 16 (0-31) U/L Alkaline Phosphatase 119 H (39-117) U/L Albumin 3.4 L (3.5-5.0) g/dL Urine 09/06/24 Range/Units 16:44 Urine Color Dark Yellow Urine Appearance Clear Urine pH 6.0 (5.0-9.0) Ur Specific [place] >= 1.030 H (1.005-1.025) Urine Protein 30 (1+) H (Neg-Trace) mg/dL Urine Glucose (UA) Negative (Negative) mg/dL All other labs normal. Assessment and Plan (1) Small bowel obstruction: Status: Acute (2) Ileus: Status: Acute (3) Abdominal pain: Qualifiers: Abdominal location: generalized Qualified Code(s): R10.84 - Generalized abdominal pain Status: Acute Plan 84-year-old female patient with a prior history of abdominal hysterectomy presenting with a sudden onset of abdominal pain, nausea or vomiting. She presented to the emergency department was noted to have an elevated WBC. Workup with CT abdomen and pelvis revealed dilated loops of small bowel obstruction without a clear transition point but findings do appear consistent with a small- bowel obstruction versus ileus. Agree with period of bowel rest with NG tube decompression and IV fluids. If no improvement by tomorrow recommend a contrast study either CT with oral contrast verses small-bowel follow-through. Procedures Date of Service Date of Service: 09/07/24
[2024-09-07] MEDS: Lactated Ringers 1,000 ML 100 ML IVCONT (09:02)
[2024-09-07] MEDS: ondansetron HCL 4 MG/2 ML VIAL IVPUSH ×2 (09:06→18:19)
--- NOTE | 2024-09-07 09:24 | HO.PM.IMPN ---
Subjective Subjective Date of Service: 09/07/24 Interval History: f/u on sbo ngt still in npo Physical Exam Vital Signs: Vital Signs: Last Vital Signs Temp 97.8 F 09/07/24 08:49 Pulse 75 09/07/24 08:49 Resp 14 09/07/24 08:49 BP 96/50 L 09/07/24 08:49 Pulse Ox 90 L 09/07/24 08:49 O2 Del Method Room Air 09/07/24 08:49 BMI result Body Mass Index 33.5 Const: Other: General: AO X 3, no acute distress Resp: CTA bilateral CVS: S1,S2,RRR GI: -BS, marked distention, mild tenderness Skin: No rash Neuro: motor grossly intact Psych: appropriate affect Objective Data Active Medications Acetaminophen (Acetaminophen 325 Mg Tablet) 650 mg PO Q6H PRN PRN Reason: Pain, Mild 1-3,fever,headache Lactated Ringer's (Lr) 1,000 mls @ 100 mls/hr IVCONT .Q10H [facility] Last Admin: 09/07/24 09:02 Dose: 100 mls/hr Documented By: NABOR Morphine Sulfate (Morphine Sulfate 4 Mg/Ml Cartridge) 2 mg IVPUSH Q4H PRN; Protocol PRN Reason: Pain, Severe (Pain Scale 7-10) Last Admin: 09/07/24 01:53 Dose: 2 mg Documented By: NIKITA Ondansetron HCl (Ondansetron Hcl 4 Mg/2 Ml Vial) 4 mg IVPUSH Q8H PRN PRN Reason: Nausea and Vomiting Last Admin: 09/07/24 09:06 Dose: 4 mg Documented By: NABOR Sodium Chloride (0.9 % Sodium Chloride Flush 3 Ml Syringe) 3 ml IVFLUSH QSHIFT [facility] Last Admin: 09/07/24 09:01 Dose: Not Given Documented By: NABOR Non-Admin Reason: IV Running Labs 09/07/24 05:03 09/07/24 05:03 Labs: Laboratory Results - last 24 hr 09/06/24 09/06/24 09/07/24 15:04 16:44 05:03 MCV 88.9 87.7 MCH 29.7 29.5 MCHC 33.4 33.7 RDW 13.1 13.5 Plt Count TNP 447 H D MPV 10.0 9.7 Immature Gran % (Auto) Cancelled Neut % (Auto) Cancelled Lymph % (Auto) Cancelled Taylor % (Auto) Cancelled Eos % (Auto) Cancelled Baso % (Auto) Cancelled Lymph # (Auto) Cancelled Taylor # (Auto) Cancelled Eos # (Auto) Cancelled Baso # (Auto) Cancelled Abs Immat Gran (auto) Cancelled Absolute Neuts (auto) Cancelled Absolute Nucleated RBC 0.000 0.000 Nucleated RBC % (auto) 0.0 0.0 Neutrophils % (Manual) 93 H Band Neutrophils % 1 L Lymphocytes % (Manual) 5 L Monocytes % (Manual) 1 L Abs Neuts (Manual) 18.4 H Lymphocytes # (Manual) 1.0 L Monocytes # (Manual) 0.2 Platelet Estimate NORMAL Plt Morphology Comment NORMAL RBC Morphology NOTED Acanthocytes (Spur) 2+ (3-5) Anion Gap 16 19 Estim Creat Clear Calc 71.5 36.9 Estimated GFR > 60 42 Random Glucose 154 H 176 H Calcium 9.1 9.3 Magnesium 2.1 Total Bilirubin 0.3 AST 31 ALT 16 Alkaline Phosphatase 119 H Total Protein 7.2 Albumin 3.4 L Urine Color Dark Yellow Urine Appearance Clear Urine pH 6.0 Ur Specific [place] >= 1.030 H Urine Protein 30 (1+) H Urine Glucose (UA) Negative Urine Ketones Trace Urine Blood Negative Urine Nitrite Negative Ur Leukocyte Esterase Negative Urine RBC 0-2 Urine WBC 0-5 Ur Squamous Epith Cells 3-5 Urine Bacteria None Seen Hyaline Casts 3-5 Influenza Type A (PCR) NEGATIVE Influenza Type B (PCR) NEGATIVE RSV RNA Qual (PCR) NEGATIVE SARS-CoV-2 RNA (RT-PCR) NEGATIVE Assessment and Plan (1) Small bowel obstruction: Status: Acute (2) Abdominal pain: Status: Acute Plan 84-year-old female with a PMH significant for?HLD, HTN, peripheral neuropathy, hx of endometrial cancer, hx of hysterectomy, and chronic lower back pain secondary to intermittent spinal claudication who presents to the ED with?abdominal pain, nausea, vomiting and diarrhea since this morning and admitted for managment of SBO SBO with n/v, now with NGT surgery rec: bowel rest, NGT and if not resolved by tomorrow CT with oral contrast IVF LR 150/hr while NPO Leukocytosis, worse today at 21, possible colitis on CT start empiric Ceftriaxone and Flagyl Abnormal CT findings CTA of abdomen/pelvis found evidence of possible IBD and liver cirrhosis GI consult HLD hold statin, aspirin until eating HTN hold meds d/t lisinopril, hydrochlorothiazide Chronic lower back pain Continue carbamazepine DNR/DNI, verifid with pt DVT Prophylaxis: Pnuematic compression due to possible surgical procedure for SBO Need for inpt: Active SBO with NGT, IVF Quality Stroke Does the patient have a stroke diagnosis?: No VTE Prior VTE?: No VTE Risk Level:: Medical - moderate - high VTE Device Contraindication: N/A - Device Ordered VTE Drug Contraindication: Treatment Not Indicated
[2024-09-07] MEDS: Acetaminophen 325 MG TABLET 650 MG PO (10:35)
[2024-09-07] MEDS: cefTRIAXone sodium 1 GM VIAL IVPUSH (10:35)
[2024-09-07] MEDS: metroNIDAZOLE/NS 500 MG/100 ML PIGGYBACK 100 MG IV ×2 (10:36→18:19)
[2024-09-07] MEDS: carBAMazepine 200 MG TABLET PO ×2 (10:36→21:19)
--- NOTE | 2024-09-07 14:24 | MHC.CM.PN ---
[employer] MET WITH PT IN ED PT STATES SHE LIVES ALONE IN HER WEBER AT [facility] PT USES A [facility] PT HAS A HCP AT HOME IN HER [place]AF[place] PT'S PCP IS MILLER MARRERO PT'S INS IS [facility] PT'S DCP- HOME WITH SERVICES VS [facility] PT WISHES TO ADD CONTACT : ALFREDO MANCIA [phone]
--- NOTE | 2024-09-07 18:12 | PC.NURSE ---
pt c/o chest pain, reports across her chest, denies sob at this time. BP soft 90/44 with low MAP - Sara ADAMS made aware
[2024-09-07 19:17] LABS: Troponin-I High Sensitivity 73.8 ng/L (<3.5-17.0)
[2024-09-07] MEDS: Prochlorperazine Edisylate 10 MG/2 ML VIAL 5 MG IVPUSH (19:47)
--- NOTE | 2024-09-07 20:39 | PC.NURSE ---
RN checked in on patient. patient securement device noted to be off patient. patient wasn't clear if she pulled NG tube out some but tube appeared wet. Dr Wallace notified and stated to push tube back in and then get repeat chest x ray. two arkers for tube for placement, unsure which one was correct measurement so tube pushed in up to first marker. x ray at bedside at this time
[2024-09-07] MEDS: Melatonin 3 MG TABLET 6 MG PO (22:38)
[2024-09-07] MEDS: Lactated Ringers 1,000 ML 150 ML IVCONT (22:42)
--- NOTE | 2024-09-07 23:18 | PM.EVENT ---
Event Note Date of Service: 09/07/24 Event Note: Notified by nursing pt complaining of chest pain and some SOB, though pt reports experiencing less chest pain then nausea and discomfort. Pt given Compazine 5 mg IV x1 for nausea. EKG NSR without ischemic changes. Initial troponin elevated at 73.8. Pt seen and evaluated a 2nd time where she appears uncomfortable but denies chest pain. Reports nausea is mildly improved. Will check repeat troponin. Time Spent With Patient Time: Total time managing care of this patient today ____ minutes.
[2024-09-08 00:15] VITALS: BP 100/51; PULSE 73; RESP 22; O2SAT 94
[2024-09-08] MEDS: traZODone HCL 50 MG TABLET PO (00:20)
[2024-09-08 01:52] LABS: Troponin-I High Sensitivity 101.3 ng/L (<3.5-17.0)
--- NOTE | 2024-09-08 01:59 | PC.NURSE ---
Dr Wallace made aware of second troponin level. plan to change admit order to med tele, verbal order from dr wallace and order changed in computer. nursing supervisor net making made aware as well.
[2024-09-08] MEDS: metroNIDAZOLE/NS 500 MG/100 ML PIGGYBACK 100 MG IV ×3 (02:06→18:07)
[2024-09-08] MEDS: Lactated Ringers 1,000 ML 150 ML IVCONT ×3 (04:51→18:28)
[2024-09-08 05:28] VITALS: BP 111/42; PULSE 79
[2024-09-08] MEDS: carBAMazepine 200 MG TABLET PO ×2 (08:47→20:18)
--- NOTE | 2024-09-08 08:51 | MHC.EDTECH ---
Phlebotomy at bedside to draw AM labs @ ~750am 09/08. They were unsuccessful. They requested bedside GRIFFIN Beth to draw labs off IV line. However, this tech was confident in performing a peripheral stick and was successful. Specimens were sent to lab @~ 800am. Received call for recollect of lavender tube CBC and afterwards received another call from the lab which questioned the Cr which was >2 this am. Lab staff was concerned that initial specimen sent @ 800 was mislabeled or mixed up. So we requested the lab to recollect both of the labs. Labs we recollect via peripheral stick by [facility] and Bedside GRIFFIN Beth present. On labeling the specimen, 2 person verification with patient, labels, and specimens was performed. The specimens were subsequently walked to the lab by [facility] and hand to lab staff @~845.
[2024-09-08 08:53] LABS: Hematocrit 42.9 % (37.0-47.0); Hemoglobin 14.4 g/dl (12.0-16.0); Mean Corpuscular HGB Conc 33.6 g/dl (31.0-35.0); Mean Corpuscular Hemoglobin 29.6 pg (27.0-33.0); Mean Corpuscular Volume 88.3 fL (80.0-98.0); Mean Platelet Volume 9.8 fL (9.4-12.3); Platelet Count 291 X10*3/uL (160-400); Red Blood Count 4.86 X10*6/uL (4.20-5.50); Red Cell Distribution Width 13.7 % (11.0-16.0); WBC ABN SCTR FOR CBC 1
[2024-09-08 08:54] LABS: White Blood Count 18.4 X10*3/uL (4.8-10.8)
[2024-09-08 09:10] LABS: Anion Gap 21 (12-20); Blood Urea Nitrogen 44 mg/dL (9-16); Calcium 8.7 mg/dL (8.4-10.2); Carbon Dioxide 21 mmol/L (22-29); Chloride 100 mmol/L (96-108); Creatinine Clr Calc Pharmacy 16.7; Estimated Glomerular Filt Rate 17; Glucose Random 133 mg/dL (60-115); Sodium 138 mmol/L (135-145)
--- NOTE | 2024-09-08 09:21 | PC.NURSE ---
creatinine of 2.69 received at this time. pt notes minimal urine output. bladder scan obtained displaying 64mL. LR infusing @ 150mls/hr. provider notified/aware of lab results. no new orders at this time.
--- NOTE | 2024-09-08 09:38 | PC.NURSE ---
18fr salcedo catheter placed at this time d/t repeat labs. 60ml of dark yellow urine noted immediately post output. pt tolerated insertion well.
--- NOTE | 2024-09-08 09:40 | HO.PM.IMPN ---
Subjective Subjective Date of Service: 09/08/24 Interval History: f/u on sbo ngt still in npo kub showing constipation, no report of bowel obstruction now with AGUILAR Physical Exam Vital Signs: Vital Signs: Last Vital Signs Temp 97.1 F 09/07/24 17:06 Pulse 79 09/08/24 05:28 Resp 22 H 09/08/24 00:15 BP 111/42 L 09/08/24 05:28 Pulse Ox 94 09/08/24 00:15 O2 Del Method Nasal Cannula 09/08/24 00:15 O2 Flow Rate 4 09/08/24 00:15 BMI result Body Mass Index 33.5 Const: Other: General: AO X 3, no acute distress Resp: CTA bilateral CVS: S1,S2,RRR GI: faint bowel sounds, distended, no tenderness Skin: No rash Neuro: motor grossly intact Psych: appropriate affect Objective Data Active Medications Acetaminophen (Acetaminophen 325 Mg Tablet) 650 mg PO Q6H PRN PRN Reason: Pain, Mild 1-3,fever,headache Last Admin: 09/07/24 10:35 Dose: 650 mg Documented By: NABOR Carbamazepine (Carbamazepine 200 Mg Tablet) 200 mg PO BID [facility] Last Admin: 09/08/24 08:47 Dose: 200 mg Documented By: JEY Ceftriaxone Sodium (Ceftriaxone Sodium 1 Gm Vial) 1 gm IVPUSH Q24H [facility] Last Admin: 09/07/24 10:35 Dose: 1 gm Documented By: NABOR Lactated Ringer's (Lr) 1,000 mls @ 150 mls/hr IVCONT .Q6H40M [facility] Last Admin: 09/08/24 04:51 Dose: 150 mls/hr Documented By: MAX Metronidazole (Flagyl) 500 mg in 100 mls @ 100 mls/hr IV Q8H [facility] Last Infusion: 09/08/24 03:31 Dose: Infused Documented By: MAX Melatonin (Melatonin 3 Mg Tablet) 6 mg PO BEDTIME PRN PRN Reason: Insomnia Last Admin: 09/07/24 22:38 Dose: 6 mg Documented By: MAX Morphine Sulfate (Morphine Sulfate 4 Mg/Ml Cartridge) 2 mg IVPUSH Q4H PRN; Protocol PRN Reason: Pain, Severe (Pain Scale 7-10) Last Admin: 09/07/24 12:51 Dose: 2 mg Documented By: NABOR Ondansetron HCl (Ondansetron Hcl 4 Mg/2 Ml Vial) 4 mg IVPUSH Q8H PRN PRN Reason: Nausea and Vomiting Last Admin: 09/07/24 18:19 Dose: 4 mg Documented By: NABOR Sodium Chloride (0.9 % Sodium Chloride Flush 3 Ml Syringe) 3 ml IVFLUSH QSHIFT [facility] Last Admin: 09/08/24 07:50 Dose: Not Given Documented By: JEY Non-Admin Reason: Patient Asleep Trazodone HCl (Trazodone Hcl 50 Mg Tablet) 50 mg PO BEDTIME PRN PRN Reason: Insomnia Labs 09/08/24 08:45 09/08/24 08:45 Labs: Laboratory Results - last 24 hr 09/08/24 08:45 MCV 88.3 MCH 29.6 MCHC 33.6 RDW 13.7 Plt Count 291 D MPV 9.8 Absolute Nucleated RBC 0.000 Nucleated RBC % (auto) 0.0 Anion Gap 21 H Estim Creat Clear Calc 16.7 Estimated GFR 17 Random Glucose 133 H Calcium 8.7 D Assessment and Plan (1) Small bowel obstruction: Status: Acute (2) Abdominal pain: Status: Acute Plan 84-year-old female with a PMH significant for?HLD, HTN, peripheral neuropathy, hx of endometrial cancer, hx of hysterectomy, and chronic lower back pain secondary to intermittent spinal claudication who presents to the ED with?abdominal pain, nausea, vomiting and diarrhea and admitted for sbo SBO with n/v, NGT in place with bile drainage surgery rec: bowel rest, NGT and if not resolved by tomorrow CT with oral contrast KUB 09/08, mild constiaption and no acute process Surgery to follow up IVF LR 150/hr, keep NPO AGUILAR, likely ATN from IV contrast Add Reese cath hold BP meds (HCTZ and lisinopril) Nephrology consult Leukocytosis, better today, possible colitis on CT continue empiric Ceftriaxone and Flagyl Abnormal CT findings CTA of abdomen/pelvis found evidence of possible IBD and liver cirrhosis GI consult HLD hold statin, aspirin until eating HTN hold lisinopril, hydrochlorothiazide d/t renal failure and borderline bp Chronic lower back pain Continue carbamazepine DNR/DNI, verifid with pt DVT Prophylaxis: Pnuematic compression, heparin Need for inpt: Active SBO with NGT, IVF Quality Stroke Does the patient have a stroke diagnosis?: No VTE Prior VTE?: No VTE Risk Level:: Medical - moderate - high VTE Device Contraindication: N/A - Device Ordered VTE Drug Contraindication: Treatment Not Indicated
[2024-09-08 10:18] VITALS: BP 118/56; PULSE 73; RESP 16; TEMP 36.9; O2SAT 93
--- NOTE | 2024-09-08 10:27 | PM.PNGS ---
Subjective Subjective Date of Service: 09/08/24 <Lexi Walsh PA-C - Last Filed: 09/08/24 10:34> 09/08/24 <Jesus Galaviz MD - Last Filed: 09/08/24 12:59> Interval history: Has persistent nausea, abdominal distention. Denies flatus or further BM since morning of presentation. Pain has mildly improved. <Lexi Walsh PA-C - Last Filed: 09/08/24 10:34> Physical Exam Vital Signs: Vital Signs: Last Vital Signs Temp 98.5 F 09/08/24 10:18 Pulse 84 09/08/24 10:18 Resp 16 09/08/24 10:18 BP 118/56 L 09/08/24 10:18 Pulse Ox 91 L 09/08/24 10:18 O2 Del Method Nasal Cannula 09/08/24 10:18 O2 Flow Rate 6.0 09/08/24 10:18 BMI result Body Mass Index 33.5 <Lexi Walsh PA-C - Last Filed: 09/08/24 10:34> Const: General: alert; No in distress or ill appearing <Lexi Walsh PA-C - Last Filed: 09/08/24 10:34> Resp: Effort & Inspection: able to speak in complete sentences, not labored and not tachypneic <Lexi Walsh PA-C - Last Filed: 09/08/24 10:34> GI: Other: abdomen distended but soft, tympanitic to percussion mild diffuse discomfort to palpation <Lexi Walsh PA-C - Last Filed: 09/08/24 10:34> Palpation (GI): no guarding and not rigid <Lexi Walsh PA-C - Last Filed: 09/08/24 10:34> Skin: General skin exam: no rashes or lesions noted <ATUL Delcid Last Filed: 09/08/24 10:34> Neuro: General: moves all extremities <ATUL Delcid Last Filed: 09/08/24 10:34> Objective Data Active Medications Acetaminophen (Acetaminophen 325 Mg Tablet) 650 mg PO Q6H PRN PRN Reason: Pain, Mild 1-3,fever,headache Last Admin: 09/07/24 10:35 Dose: 650 mg Documented By: NABOR Carbamazepine (Carbamazepine 200 Mg Tablet) 200 mg PO BID [facility] Last Admin: 09/08/24 08:47 Dose: 200 mg Documented By: JEY Ceftriaxone Sodium (Ceftriaxone Sodium 1 Gm Vial) 1 gm IVPUSH Q24H [facility] Last Admin: 09/07/24 10:35 Dose: 1 gm Documented By: NABOR Heparin Sodium (Porcine) (Heparin Sodium,Porcine 5,000 Unit/Ml Vial) 5,000 unit SUBCUT Q12H [facility] Lactated Ringer's (Lr) 1,000 mls @ 150 mls/hr IVCONT .Q6H40M [facility] Last Admin: 09/08/24 04:51 Dose: 150 mls/hr Documented By: MAX Metronidazole (Flagyl) 500 mg in 100 mls @ 100 mls/hr IV Q8H [facility] Last Infusion: 09/08/24 03:31 Dose: Infused Documented By: MAX Melatonin (Melatonin 3 Mg Tablet) 6 mg PO BEDTIME PRN PRN Reason: Insomnia Last Admin: 09/07/24 22:38 Dose: 6 mg Documented By: MAX Morphine Sulfate (Morphine Sulfate 4 Mg/Ml Cartridge) 2 mg IVPUSH Q4H PRN; Protocol PRN Reason: Pain, Severe (Pain Scale 7-10) Last Admin: 09/07/24 12:51 Dose: 2 mg Documented By: NABOR Ondansetron HCl (Ondansetron Hcl 4 Mg/2 Ml Vial) 4 mg IVPUSH Q8H PRN PRN Reason: Nausea and Vomiting Last Admin: 09/07/24 18:19 Dose: 4 mg Documented By: NABOR Sodium Chloride (0.9 % Sodium Chloride Flush 3 Ml Syringe) 3 ml IVFLUSH QSHIFT [facility] Last Admin: 09/08/24 07:50 Dose: Not Given Documented By: JEY Non-Admin Reason: Patient Asleep Trazodone HCl (Trazodone Hcl 50 Mg Tablet) 50 mg PO BEDTIME PRN PRN Reason: Insomnia <Lexi Walsh PA-C - Last Filed: 09/08/24 10:34> Labs CBC & Chem 7: 09/08/24 08:45 09/08/24 08:45 <Lexi Walsh PA-C - Last Filed: 09/08/24 10:34> Labs: Laboratory Results - last 24 hr 09/08/24 08:45 MCV 88.3 MCH 29.6 MCHC 33.6 RDW 13.7 Plt Count 291 D MPV 9.8 Absolute Nucleated RBC 0.000 Nucleated RBC % (auto) 0.0 Anion Gap 21 H Estim Creat Clear Calc 16.7 Estimated GFR 17 Random Glucose 133 H Calcium 8.7 D <Lexi Walsh PA-C - Last Filed: 09/08/24 10:34> Procedures Date of Service Date of Service: 09/08/24 <Lexi Walsh PA-C - Last Filed: 09/08/24 10:34> 09/08/24 <Jesus Galaviz MD - Last Filed: 09/08/24 12:59> Progress Note: A&P Assessment and plan (1) Intractable abdominal pain: Status: Acute <Lexi Walsh PA-C - Last Filed: 09/08/24 10:34> Assessment and Plan: Continues with nausea despite NGT in place, no evidence of GI function. Appears in correct position on imaging. Remains distended on exam. Unclear how much NGT output there has been as there is nothing documented. F/u KUB official read states normal caliber SB but appears dilated on my review with stacked coined appearance. Will therefore obtain SBFT. Further plan dependent on results. Contrast can be given via NGT. Cont supportive measures. <Lexi Walsh PA-C - Last Filed: 09/08/24 10:34> Continues with nausea despite NGT in place, no evidence of GI function. Appears in correct position on imaging. Remains distended on exam. Unclear how much NGT output there has been as there is nothing documented. F/u KUB official read states normal caliber SB but appears dilated on my review with stacked coined appearance. Will therefore obtain SBFT. Further plan dependent on results. Contrast can be given via NGT. Cont supportive measures. Patient seen and examined independently, agree with the above assessment and plan. Not much improvement in physical examination. We will await small-bowel follow-through. <Jesus Galaviz MD - Last Filed: 09/08/24 12:59> Time Spent With Patient Time: Total time managing care of this patient today ____ minutes. <Lexi Walsh PA-C - Last Filed: 09/08/24 10:34> Quality Stroke Does the patient have a stroke diagnosis?: No <Lexi Walsh PA-C - Last Filed: 09/08/24 10:34> VTE Prior VTE?: No <Lexi Walsh PA-C - Last Filed: 09/08/24 10:34> VTE Risk Level:: Medical - moderate - high <Lexi Walsh PA-C - Last Filed: 09/08/24 10:34> VTE Device Contraindication: N/A - Device Ordered <Lexi Walsh PA-C - Last Filed: 09/08/24 10:34> VTE Drug Contraindication: Treatment Not Indicated <Lexi Walsh PA-C - Last Filed: 09/08/24 10:34>
[2024-09-08] MEDS: ondansetron HCL 4 MG/2 ML VIAL IVPUSH ×2 (10:30→18:28)
[2024-09-08] MEDS: Heparin Sodium,Porcine 5,000 UNIT/ML VIAL 5000 UNIT SUBCUT ×2 (10:31→22:21)
[2024-09-08] MEDS: cefTRIAXone sodium 1 GM VIAL IVPUSH (10:34)
[2024-09-08 11:07] VITALS: BMI 33.5
[2024-09-08 12:02] LABS: Troponin-I High Sensitivity 117.1 ng/L (<3.5-17.0)
[2024-09-08 16:00] VITALS: BP 108/53; PULSE 79; RESP 16; TEMP 36.9; O2SAT 94
[2024-09-08 17:19] VITALS: BP 122/57; PULSE 82; RESP 16; TEMP 36.8; O2SAT 94
--- NOTE | 2024-09-08 18:23 | PM.CNNEP ---
History of Present Illness Reason for Consult Consult date: 09/08/24 Reason for consult: AGUILAR Chief Complaint Chief complaint: SBO vs Ileus History of Present Illness Narrative: 84-year-old female with a PMH significant for?HLD, HTN, peripheral neuropathy, hx of endometrial cancer, hx of hysterectomy, and chronic lower back pain secondary to intermittent spinal claudication who presented to the ER with?abdominal pain, nausea, vomiting and diarrhea. Pt reports was in her normal state of health the day before , but upon awakening this morning had intense abdominal pain and cramping in a band across her abdomen that radiated to her back. Multiple episodes of nausea and vomiting, and initially some small amounts of diarrhea. Subjective fever and chills this morning, but never measured temperature. Pt reports previous surgical hx of complete hysterectomy secondary to endometrial cancer 20 years ago. Denies past hx of SBO. Pt reports feels dilated and bloated. No chest pain/pressure, palpitations. Denies shortness or breath or difficulty breathing. In the ER pt was initially hypertensive at 164/84, vitals otherwise stable and WNL. Labs were significant for leukocytosis 19.6, sodium 134, and alk-phos mildly elevated at 119. Stable H&H. Renal function WNL. UA negative for UTI. Tested negative for flu, COVID, RSV. CT?of abdomen and pelvis with IV contrast showed mild dilation of small bowel that could represent small bowel obstruction or ileus. Also showed bowel wall thickening with fatty replacement of ascending colon possibly representing inflammatory bowel disease, and mild nodular thickening of liver surface with small ascites and liver cirrhosis can not be excluded. Pt was treated with Maalox, famotidine morphine, acetaminophen, and ondansetron. Pt was to the hospital for treatment and further evaluation of intractable nausea, vomiting, and abdominal pain concerning for SBO vs ileus as well as AGUILAR. Review of Systems Review of Systems Yes all other systems are reviewed and are negative PMFSH Past Medical History Medical History Lumbar spondylosis Autonomic neuropathy due to type 2 diabetes mellitus History of seizure disorder Intermittent spinal claudication Neuropathy Localization-related (focal) (partial) symptomatic epilepsy and epileptic syndromes with simple partial seizures, not intractable, without status epilepticus Hypercholesteremia Essential hypertension Endometrial cancer Surgical History Surgical History History of hysterectomy with bilateral oophorectomy Social History Social History Household Members: None Housing: Assisted Living Facility Housing Other:: Liz Do you presently have visiting nurse or other home services: No Alcohol intake: current Alcohol intake frequency: holidays/special occasions only Patient Tobacco Use Status: Never used Tobacco service: No Current occupational status: retired Meds Allergies Allergy/AdvReac Type Severity Reaction Status Date / Time No Known Allergies Allergy Verified 09/06/24 14:15 Active Medications: Current Medications Acetaminophen (Acetaminophen 325 Mg Tablet) 650 mg PO Q6H PRN PRN Reason: Pain, Mild 1-3,fever,headache Last Admin: 09/07/24 10:35 Dose: 650 mg Carbamazepine (Carbamazepine 200 Mg Tablet) 200 mg PO BID [facility] Last Admin: 09/08/24 08:47 Dose: 200 mg Ceftriaxone Sodium (Ceftriaxone Sodium 1 Gm Vial) 1 gm IVPUSH Q24H [facility] Last Admin: 09/08/24 10:34 Dose: 1 gm Heparin Sodium (Porcine) (Heparin Sodium,Porcine 5,000 Unit/Ml Vial) 5,000 unit SUBCUT Q12H [facility] Last Admin: 09/08/24 10:31 Dose: 5,000 unit Lactated Ringer's (Lr) 1,000 mls @ 150 mls/hr IVCONT .Q6H40M [facility] Last Admin: 09/08/24 11:44 Dose: 150 mls/hr Metronidazole (Flagyl) 500 mg in 100 mls @ 100 mls/hr IV Q8H [facility] Last Admin: 09/08/24 18:07 Dose: 100 mls/hr Melatonin (Melatonin 3 Mg Tablet) 6 mg PO BEDTIME PRN PRN Reason: Insomnia Last Admin: 09/07/24 22:38 Dose: 6 mg Morphine Sulfate (Morphine Sulfate 4 Mg/Ml Cartridge) 2 mg IVPUSH Q4H PRN; Protocol PRN Reason: Pain, Severe (Pain Scale 7-10) Last Admin: 09/07/24 12:51 Dose: 2 mg Ondansetron HCl (Ondansetron Hcl 4 Mg/2 Ml Vial) 4 mg IVPUSH Q8H PRN PRN Reason: Nausea and Vomiting Last Admin: 09/08/24 10:30 Dose: 4 mg Sodium Chloride (0.9 % Sodium Chloride Flush 3 Ml Syringe) 3 ml IVFLUSH QSHIFT [facility] Last Admin: 09/08/24 17:27 Dose: Not Given Trazodone HCl (Trazodone Hcl 50 Mg Tablet) 50 mg PO BEDTIME PRN PRN Reason: Insomnia Home Medications ?Medication ?Instructions ?Recorded ?Confirmed ?Last Taken ?Type aspirin 81 mg tablet,delayed 81 mg PO DAILY 08/17/23 09/06/24 09/06/24 History release atorvastatin 80 mg tablet 80 mg PO BEDTIME 08/17/23 09/06/24 09/05/24 History carbamazepine 200 mg tablet 200 mg PO BID 08/17/23 09/06/24 09/06/24 History lisinopril 10 1 tab PO DAILY 08/17/23 09/06/24 09/06/24 History mg-hydrochlorothiazide 12.5 mg tablet Physical Exam Vital Signs: Last Vital Signs Temp 98.3 F 09/08/24 17:19 Pulse 82 09/08/24 17:19 Resp 16 09/08/24 17:19 BP 122/57 L 09/08/24 17:19 Pulse Ox 94 09/08/24 17:19 O2 Del Method Nasal Cannula 09/08/24 17:19 O2 Flow Rate 4.0 09/08/24 17:19 BMI result Body Mass Index 33.5 Const General: comfortable and no acute distress Orientation/consciousness: patient oriented x3 HEENT Head: Yes normocephalic Mouth: Normal oral and palatal mucosa present Eyes EOM: EOMs intact bilaterally Neck Neck: Yes supple Resp Auscultation: clear to auscultation bilaterally Cardio Jugular venous distension: no JVD Rate: regular rate Heart sounds: Murmur heart sound present GI Palpation (GI): Soft to palpation Auscultation: normal bowel sounds Skin General skin exam: no rashes or lesions noted Neuro General: patient oriented x3 and moves all extremities Extrem General: Yes no pedal edema Results Lab Results 09/08/24 08:45 09/08/24 08:45 Lab results: Chemistry 09/06/24 09/07/24 09/08/24 15:04 05:03 08:45 Sodium 134 L 137 138 Potassium 3.8 3.9 4.0 Carbon Dioxide 15 L 19 L 21 L BUN 14 22 H 44 H Creatinine 0.63 1.22 2.69 H Calcium 9.1 9.3 8.7 D Hematology 09/06/24 09/07/24 09/08/24 15:04 05:03 08:45 WBC 19.6 H 21.7 H 18.4 H Hgb 16.0 17.3 H 14.4 Plt Count TNP 447 H D 291 D Urinalysis 09/06/24 16:44 Urine Color Dark Yellow Urine Appearance Clear Urine pH 6.0 Ur Specific [place] >= 1.030 H Urine Protein 30 (1+) H Urine Glucose (UA) Negative Urine Ketones Trace Urine Blood Negative Urine Nitrite Negative Ur Leukocyte Esterase Negative Urine RBC 0-2 Urine WBC 0-5 Ur Squamous Epith Cells 3-5 Hyaline Casts 3-5 Assessment and Plan (1) AGUILAR (acute kidney injury): Status: Acute Plan AGUILAR due to tubular injury( Had IV contrast as well at presentation) U/A non supportive of GN/AIN. UO fair; No obstruction by imaging C/W IV fluids and supportive care for now; No indication for renal replacement Labs AM. Shall closely follow up Procedures Date of Service Date of Service: 09/08/24
[2024-09-08 19:52] VITALS: BP 134/63; PULSE 84; RESP 20; TEMP 36.9; O2SAT 91
[2024-09-08] MEDS: Prochlorperazine Edisylate 10 MG/2 ML VIAL IVPUSH (22:39)
[2024-09-09] MEDS: metroNIDAZOLE/NS 500 MG/100 ML PIGGYBACK 100 MG IV ×3 (01:19→17:33)
[2024-09-09 03:12] VITALS: BP 144/66; PULSE 89; RESP 20; TEMP 37.1; O2SAT 93
[2024-09-09 07:06] VITALS: BP 159/69; PULSE 78; RESP 16; TEMP 37.1; O2SAT 94
[2024-09-09 08:09] LABS: Hematocrit 37.7 % (37.0-47.0); Hemoglobin 13.1 g/dl (12.0-16.0); Mean Corpuscular HGB Conc 34.7 g/dl (31.0-35.0); Mean Corpuscular Hemoglobin 29.6 pg (27.0-33.0); Mean Corpuscular Volume 85.1 fL (80.0-98.0); Mean Platelet Volume 9.6 fL (9.4-12.3); Platelet Count 314 X10*3/uL (160-400); Red Blood Count 4.43 X10*6/uL (4.20-5.50); Red Cell Distribution Width 13.6 % (11.0-16.0); White Blood Count 15.1 X10*3/uL (4.8-10.8)
[2024-09-09 08:22] LABS: Anion Gap 15 (12-20); Blood Urea Nitrogen 49 mg/dL (9-16); Calcium 8.8 mg/dL (8.4-10.2); Carbon Dioxide 23 mmol/L (22-29); Chloride 101 mmol/L (96-108); Creatinine Clr Calc Pharmacy 27.5; Estimated Glomerular Filt Rate 30; Glucose Random 114 mg/dL (60-115); Potassium 3.6 mmol/L (3.3-5.1); Sodium 135 mmol/L (135-145)
[2024-09-09] MEDS: carBAMazepine 200 MG TABLET PO ×2 (09:00→22:30)
[2024-09-09] MEDS: 0.9 % Sodium Chloride Flush 3 ML SYRINGE IVFLUSH ×2 (09:00→15:30)
[2024-09-09] MEDS: Heparin Sodium,Porcine 5,000 UNIT/ML VIAL 5000 UNIT SUBCUT ×2 (09:35→22:30)
[2024-09-09] MEDS: cefTRIAXone sodium 1 GM VIAL IVPUSH (09:35)
--- NOTE | 2024-09-09 11:21 | HO.PM.IMPN ---
Subjective Subjective Date of Service: 09/09/24 <Elham Mcfadden PA-C - Last Filed: 09/09/24 11:32> 09/10/24 <Pj Choudhary MD - Last Filed: 09/10/24 13:25> Interval History: f/u SBO persistent nausea NG tube still in, minimal output per patient NPO KUB pending, patient reports no bowel movement or flatulence continues with AGUILAR due to tubular injury from IV contrast, followed by Nephrology <Elham Mcfadden PA-C - Last Filed: 09/09/24 11:32> Constitutional Constitutional: Denies chills, Denies fever(s) and Denies headache(s) <ATUL Todd Last Filed: 09/09/24 11:32> Eyes Eyes: Denies change in vision and Denies photophobia <Elham Mcfadden PA-C - Last Filed: 09/09/24 11:32> ENT Ears, Nose, Mouth, and Throat: Denies headache(s) <Elham Mcfadden PA-C - Last Filed: 09/09/24 11:32> Cardiovascular Cardiovascular: Denies chest pain, Denies rapid heart rate, Denies lightheadedness and Denies dyspnea <ATUL Todd Last Filed: 09/09/24 11:32> Respiratory Respiratory: Denies cough, Denies dyspnea and Denies wheezing <Elham Mcfadden PA-C - Last Filed: 09/09/24 11:32> Gastrointestinal Gastrointestinal: Reports nausea <Elham Mcfadden PA-C - Last Filed: 09/09/24 11:32> Genitourinary Reese in place <Elham Mcfadden PA-C - Last Filed: 09/09/24 11:32> Musculoskeletal Musculoskeletal: Denies myalgias <ATUL Todd Last Filed: 09/09/24 11:32> Integumentary/Breasts Skin/Breast: Denies rash <ATUL Todd Last Filed: 09/09/24 11:32> Neurologic Neurologic: Denies confusion and Denies headache(s) <Elham Mcfadden PA-C [place] Last Filed: 09/09/24 11:32> Psychiatric Psychiatric: Denies confusion <Elham Mcfadden PA-C [place] Last Filed: 09/09/24 11:32> Allergic/Immunologic Allergic/Immunologic: Denies wheezing <ATUL Todd Last Filed: 09/09/24 11:32> Physical Exam Vital Signs: Vital Signs: Last Vital Signs Temp 98.8 F 09/09/24 07:06 Pulse 78 09/09/24 07:06 Resp 16 09/09/24 07:06 BP 159/69 H 09/09/24 07:06 Pulse Ox 94 09/09/24 07:06 O2 Del Method Nasal Cannula 09/09/24 07:06 O2 Flow Rate 4.5 09/09/24 07:06 BMI result Body Mass Index 33.5 <Elham Mcfadden PA-C [place] Last Filed: 09/09/24 11:32> General: AOx3, no acute distress Resp: CTA bilaterally CVS: S1, S2, RRR GI: hypoactive, generalized tenderness, centralized to the epigastric region, distended Skin: Warm, dry Neuro: Cranial nerves II-XII grossly intact bilaterally. Motor grossly intact bilaterally Extremities: No lower extremity edema Psych: Appropriate affect <ATUL Todd Last Filed: 09/09/24 11:32> Const: General: No confusion <Elham Mcfadden PA-C [place] Last Filed: 09/09/24 11:32> Orientation/consciousness: No confusion <Elham Mcfadden PA-C [place] Last Filed: 09/09/24 11:32> Eyes: Direct Ophthalmoscopy: No photophobia <Elham Mcfadden PA-C [place] Last Filed: 09/09/24 11:32> Neuro: General: No confusion <Elham Mcfadden PA-C [place] Last Filed: 09/09/24 11:32> Objective Data Active Medications Acetaminophen (Acetaminophen 325 Mg Tablet) 650 mg PO Q6H PRN PRN Reason: Pain, Mild 1-3,fever,headache Last Admin: 09/07/24 10:35 Dose: 650 mg Documented By: NABOR Carbamazepine (Carbamazepine 200 Mg Tablet) 200 mg PO BID [facility] Last Admin: 09/09/24 09:00 Dose: 200 mg Documented By: CHEY Ceftriaxone Sodium (Ceftriaxone Sodium 1 Gm Vial) 1 gm IVPUSH Q24H [facility] Last Admin: 09/09/24 09:35 Dose: 1 gm Documented By: CHEY Heparin Sodium (Porcine) (Heparin Sodium,Porcine 5,000 Unit/Ml Vial) 5,000 unit SUBCUT Q12H [facility] Last Admin: 09/09/24 09:35 Dose: 5,000 unit Documented By: CHEY Metronidazole (Flagyl) 500 mg in 100 mls @ 100 mls/hr IV Q8H [facility] Last Infusion: 09/09/24 10:39 Dose: Infused Documented By: CHEY Melatonin (Melatonin 3 Mg Tablet) 6 mg PO BEDTIME PRN PRN Reason: Insomnia Last Admin: 09/07/24 22:38 Dose: 6 mg Documented By: DONOPELa Morphine Sulfate (Morphine Sulfate 4 Mg/Ml Cartridge) 2 mg IVPUSH Q4H PRN; Protocol PRN Reason: Pain, Severe (Pain Scale 7-10) Last Admin: 09/07/24 12:51 Dose: 2 mg Documented By: NABOR Ondansetron HCl (Ondansetron Hcl 4 Mg/2 Ml Vial) 4 mg IVPUSH Q8H PRN PRN Reason: Nausea and Vomiting Last Admin: 09/08/24 18:28 Dose: 4 mg Documented By: SANG Sodium Chloride (0.9 % Sodium Chloride Flush 3 Ml Syringe) 3 ml IVFLUSH QSHIFT [facility] Last Admin: 09/09/24 09:00 Dose: 3 ml Documented By: CHEY Trazodone HCl (Trazodone Hcl 50 Mg Tablet) 50 mg PO BEDTIME PRN PRN Reason: Insomnia <Elham Mcfadden PA-C - Last Filed: 09/09/24 11:32> Labs CBC & Chem 7: 09/10/24 07:32 09/10/24 07:32 <Elham Mcfadden PA-C - Last Filed: 09/09/24 11:32> Labs: Laboratory Results - last 24 hr 09/09/24 07:54 MCV 85.1 MCH 29.6 MCHC 34.7 RDW 13.6 Plt Count 314 MPV 9.6 Absolute Nucleated RBC 0.000 Nucleated RBC % (auto) 0.0 Anion Gap 15 Estim Creat Clear Calc 27.5 Estimated GFR 30 Random Glucose 114 Calcium 8.8 <Elham Mcfadden PA-C - Last Filed: 09/09/24 11:32> Assessment and Plan (1) Small bowel obstruction: Status: Acute <Elham Mcfadden PA-C Last Filed: 09/09/24 11:32> (2) AGUILAR (acute kidney injury): Status: Acute <ATUL Todd Last Filed: 09/09/24 11:32> Assessment and Plan: 84-year-old female with a PMH significant for?HLD, HTN, peripheral neuropathy, hx of endometrial cancer, hx of hysterectomy, and chronic lower back pain secondary to intermittent spinal claudication who presents to the ED with?abdominal pain, nausea, vomiting and diarrhea and admitted for sbo SBO with n/v, NGT in place with bile drainage surgery rec: bowel rest, NGT and ordered SBFT (pending) as well as repeat KUB today. suggested yesterday if no improvement CT with PO contrast KUB 09/08, mild constipation and no acute process Surgery to follow up IVF LR 150/hr, keep NPO AGUILAR, likely ATN from IV contrast good improvement of cr from 2.69 to 1.64 Reese cath, draining straw colored urine hold BP meds (HCTZ and lisinopril) Nephrology following-- supportive care with IVF Leukocytosis, better today, possible colitis on CT continue empiric Ceftriaxone and Flagyl Abnormal CT findings CTA of abdomen/pelvis found evidence of possible IBD and liver cirrhosis GI consult HLD hold statin, aspirin until eating HTN hold lisinopril, hydrochlorothiazide d/t renal failure and borderline bp Chronic lower back pain Continue carbamazepine DNR/DNI, verified with pt DVT Prophylaxis: Pneumatic compression, heparin Need for inpt: Active SBO with NGT, IVF <Elham Mcfadden PA-C - Last Filed: 09/09/24 11:32> Quality Stroke Does the patient have a stroke diagnosis?: No <Elham Mcfadden PA-C - Last Filed: 09/09/24 11:32> VTE Prior VTE?: No <Elham Mcfadden PA-C - Last Filed: 09/09/24 11:32> VTE Risk Level:: Medical - moderate - high <Elham Mcfadden PA-C - Last Filed: 09/09/24 11:32> VTE Device Contraindication: N/A - Device Ordered <Elham Mcfadden PA-C - Last Filed: 09/09/24 11:32> VTE Drug Contraindication: Treatment Not Indicated <Elham Mcfadden PA-C - Last Filed: 09/09/24 11:32>
--- NOTE | 2024-09-09 12:37 | PM.PNGS ---
Subjective Subjective Date of Service: 09/09/24 Interval history: Patient not passing gas or stool and had a little bit of some nausea. Is having barium small-bowel follow-through overnight and then into this morning with KUB carried out then. NG tube has been off suctioned. Physical Exam Vital Signs: Vital Signs: Last Vital Signs Temp 98.8 F 09/09/24 07:06 Pulse 78 09/09/24 07:06 Resp 16 09/09/24 07:06 BP 159/69 H 09/09/24 07:06 Pulse Ox 94 09/09/24 07:06 O2 Del Method Nasal Cannula 09/09/24 07:06 O2 Flow Rate 4.5 09/09/24 07:06 BMI result Body Mass Index 33.5 Const: General: cooperative, healthy appearing and acute distress mild GI: Other: Abdomen is soft mildly diffusely tender she does have some bowel sounds the NG tube was placed around with and irrigated and then hooked back up to suction not much output noted. It was flushed still not much output and left on intermittent suctioned Objective Data Active Medications Acetaminophen (Acetaminophen 325 Mg Tablet) 650 mg PO Q6H PRN PRN Reason: Pain, Mild 1-3,fever,headache Last Admin: 09/07/24 10:35 Dose: 650 mg Documented By: NABOR Carbamazepine (Carbamazepine 200 Mg Tablet) 200 mg PO BID [facility] Last Admin: 09/09/24 09:00 Dose: 200 mg Documented By: CHEY Ceftriaxone Sodium (Ceftriaxone Sodium 1 Gm Vial) 1 gm IVPUSH Q24H [facility] Last Admin: 09/09/24 09:35 Dose: 1 gm Documented By: CHEY Heparin Sodium (Porcine) (Heparin Sodium,Porcine 5,000 Unit/Ml Vial) 5,000 unit SUBCUT Q12H [facility] Last Admin: 09/09/24 09:35 Dose: 5,000 unit Documented By: CHEY Metronidazole (Flagyl) 500 mg in 100 mls @ 100 mls/hr IV Q8H [facility] Last Infusion: 09/09/24 10:39 Dose: Infused Documented By: CHEY Melatonin (Melatonin 3 Mg Tablet) 6 mg PO BEDTIME PRN PRN Reason: Insomnia Last Admin: 09/07/24 22:38 Dose: 6 mg Documented By: MAX Morphine Sulfate (Morphine Sulfate 4 Mg/Ml Cartridge) 2 mg IVPUSH Q4H PRN; Protocol PRN Reason: Pain, Severe (Pain Scale 7-10) Last Admin: 09/07/24 12:51 Dose: 2 mg Documented By: NABOR Ondansetron HCl (Ondansetron Hcl 4 Mg/2 Ml Vial) 4 mg IVPUSH Q8H PRN PRN Reason: Nausea and Vomiting Last Admin: 09/08/24 18:28 Dose: 4 mg Documented By: SANG Sodium Chloride (0.9 % Sodium Chloride Flush 3 Ml Syringe) 3 ml IVFLUSH [facility] Last Admin: 09/09/24 09:00 Dose: 3 ml Documented By: CHEY Trazodone HCl (Trazodone Hcl 50 Mg Tablet) 50 mg PO BEDTIME PRN PRN Reason: Insomnia Labs 09/09/24 07:54 09/09/24 07:54 Labs: Laboratory Results - last 24 hr 09/09/24 07:54 MCV 85.1 MCH 29.6 MCHC 34.7 RDW 13.6 Plt Count 314 MPV 9.6 Absolute Nucleated RBC 0.000 Nucleated RBC % (auto) 0.0 Anion Gap 15 Estim Creat Clear Calc 27.5 Estimated GFR 30 Random Glucose 114 Calcium 8.8 Procedures Date of Service Date of Service: 09/09/24 Progress Note: A&P Assessment and plan (1) Small bowel obstruction: Status: Acute Assessment and Plan: Patient with probable partial small bowel obstruction stable. Plan to follow through with the small-bowel follow-through series this morning films contrast did not appear to be in the colon as yet. Plan to keep the NG tube to suction and IV fluid resuscitation and medical management as per the team there to improve acute kidney injury. At this point white count is normal no emergent need to carry out any surgical intervention. We will continue to follow and hopefully with conservative care NPO NG tube IV fluid resuscitation she will improve. Time Spent With Patient Time: Total time managing care of this patient today ____ minutes. Quality Stroke Does the patient have a stroke diagnosis?: No VTE Prior VTE?: No VTE Risk Level:: Medical - moderate - high VTE Device Contraindication: N/A - Device Ordered VTE Drug Contraindication: Treatment Not Indicated
[2024-09-09 15:24] VITALS: BP 140/63; PULSE 74; RESP 14; TEMP 36.4; O2SAT 93
[2024-09-09] MEDS: Acetaminophen 325 MG TABLET 650 MG PO (15:30)
[2024-09-09 19:43] VITALS: BP 134/63; PULSE 73; RESP 20; TEMP 37.1; O2SAT 93
[2024-09-10] VITALS (11 sets, daily range): BP systolic 146–177; BP diastolic 64–79; PULSE 67–75; RESP 16–22; TEMP 36.6–37.1; O2SAT 91–96
[2024-09-10] MEDS: Melatonin 3 MG TABLET 6 MG PO (00:04)
[2024-09-10] MEDS: metroNIDAZOLE/NS 500 MG/100 ML PIGGYBACK 100 MG IV ×3 (03:35→18:10)
[2024-09-10] MEDS: Throat Lozenge, Medicated LOZENGE 1 LOZENGE MUCOUS MEM (03:42)
[2024-09-10] MEDS: 0.9 % Sodium Chloride Flush 3 ML SYRINGE IVFLUSH (07:24)
[2024-09-10] MEDS: carBAMazepine 200 MG TABLET PO ×2 (07:24→20:03)
[2024-09-10] MEDS: ondansetron HCL 4 MG/2 ML VIAL IVPUSH (07:32)
[2024-09-10 07:41] LABS: Hematocrit 37.6 % (37.0-47.0); Mean Corpuscular HGB Conc 34.6 g/dl (31.0-35.0); Mean Corpuscular Hemoglobin 29.6 pg (27.0-33.0); Mean Corpuscular Volume 85.6 fL (80.0-98.0); Mean Platelet Volume 9.6 fL (9.4-12.3); Platelet Count 335 X10*3/uL (160-400); Red Blood Count 4.39 X10*6/uL (4.20-5.50); Red Cell Distribution Width 13.4 % (11.0-16.0)
[2024-09-10 07:53] LABS: Anion Gap 18 (12-20); Blood Urea Nitrogen 51 mg/dL (9-16); Carbon Dioxide 23 mmol/L (22-29); Chloride 101 mmol/L (96-108); Creatinine Clr Calc Pharmacy 46.5; Estimated Glomerular Filt Rate 54; Glucose Random 113 mg/dL (60-115); Potassium 3.2 mmol/L (3.3-5.1); Sodium 139 mmol/L (135-145)
[2024-09-10] MEDS: Lactated Ringers 1,000 ML 100 ML IVCONT ×2 (08:16→19:51)
[2024-09-10] MEDS: cefTRIAXone sodium 1 GM VIAL IVPUSH (09:56)
[2024-09-10] MEDS: Heparin Sodium,Porcine 5,000 UNIT/ML VIAL 5000 UNIT SUBCUT ×2 (09:57→21:31)
--- NOTE | 2024-09-10 13:25 | P.PNIM_ITS ---
Subjective Subjective Date of Service: 09/10/24 Interval History: Being followed for small-bowel obstruction, denies abdominal pain but noted to be tender on examination, no fevers, no chills, no headache, no chest pain Noted to have significant NG output. Review of Systems All other symptoms reviewed and are negative. Physical Exam 2 Vital Signs: Vital Signs: Last Vital Signs Temp 97.8 F 09/10/24 07:23 Pulse 72 09/10/24 07:23 Resp 16 09/10/24 07:23 BP 147/67 H 09/10/24 07:23 Pulse Ox 92 09/10/24 07:23 O2 Del Method Nasal Cannula 09/10/24 07:23 O2 Flow Rate 4 09/10/24 07:23 BMI result Body Mass Index 33.5 Const: Other: General no acute distress. Neck no JVD. CVS regular rate rhythm, Respiratory lungs clear to auscultation, no respiratory distress Gastrointestinal abdomen distended , mid abdomen tender to palpation, abstinent bowel sounds Extremities no edema. Neuro non focal Skin no rash Appropriate affect. NG with significant output Objective Data Active Medications Acetaminophen (Acetaminophen 325 Mg Tablet) 650 mg PO Q6H PRN PRN Reason: Pain, Mild 1-3,fever,headache Last Admin: 09/09/24 15:30 Dose: 650 mg Documented By: CHEY Benzocaine (Throat Lozenge, Medicated Lozenge) 1 lozenge MUCOUS MEM Q2H PRN PRN Reason: Sore Throat Last Admin: 09/10/24 03:42 Dose: 1 lozenge Documented By: JUSTUS Carbamazepine (Carbamazepine 200 Mg Tablet) 200 mg PO BID [facility] Last Admin: 09/10/24 07:24 Dose: 200 mg Documented By: CHEY Ceftriaxone Sodium (Ceftriaxone Sodium 1 Gm Vial) 1 gm IVPUSH Q24H [facility] Last Admin: 09/10/24 09:56 Dose: 1 gm Documented By: CHEY Heparin Sodium (Porcine) (Heparin Sodium,Porcine 5,000 Unit/Ml Vial) 5,000 unit SUBCUT Q12H [facility] Last Admin: 09/10/24 09:57 Dose: 5,000 unit Documented By: CHEY Metronidazole (Flagyl) 500 mg in 100 mls @ 100 mls/hr IV Q8H [facility] Last Infusion: 09/10/24 11:22 Dose: Infused Documented By: CHEY Lactated Ringer's (Lr) 1,000 mls @ 100 mls/hr IVCONT .Q10H [facility] Last Admin: 09/10/24 08:16 Dose: 100 mls/hr Documented By: CHEY Potassium Chloride (Potassium Chloride/H20) 10 meq in 100 mls @ 100 mls/hr IV Q1H [facility] Stop: 09/10/24 15:29 Melatonin (Melatonin 3 Mg Tablet) 6 mg PO BEDTIME PRN PRN Reason: Insomnia Last Admin: 09/10/24 00:04 Dose: 6 mg Documented By: JUSTUS Morphine Sulfate (Morphine Sulfate 4 Mg/Ml Cartridge) 2 mg IVPUSH Q4H PRN; Protocol PRN Reason: Pain, Severe (Pain Scale 7-10) Last Admin: 09/07/24 12:51 Dose: 2 mg Documented By: NABOR Multi-Ingred Medicated Throat [place] (Throat [place], Medicated 177 Ml Bottle) 1 spray MUCOUS MEM Q2H PRN PRN Reason: Sore Throat Ondansetron HCl (Ondansetron Hcl 4 Mg/2 Ml Vial) 4 mg IVPUSH Q8H PRN PRN Reason: Nausea and Vomiting Last Admin: 09/10/24 07:32 Dose: 4 mg Documented By: CHEY Sodium Chloride (0.9 % Sodium Chloride Flush 3 Ml Syringe) 3 ml IVFLUSH QSHIFT [facility] Last Admin: 09/10/24 07:24 Dose: 3 ml Documented By: CHEY Trazodone HCl (Trazodone Hcl 50 Mg Tablet) 50 mg PO BEDTIME PRN PRN Reason: Insomnia Labs 09/10/24 07:32 09/10/24 07:32 Labs: Laboratory Results - last 24 hr 09/10/24 07:32 MCV 85.6 MCH 29.6 MCHC 34.6 RDW 13.4 Plt Count 335 MPV 9.6 Absolute Nucleated RBC 0.000 Nucleated RBC % (auto) 0.0 Anion Gap 18 Estim Creat Clear Calc 46.5 Estimated GFR 54 Random Glucose 113 Calcium 9.0 Assessment and Plan (1) AGUILAR (acute kidney injury): Status: Acute (2) Intractable abdominal pain: Status: Acute (3) Small bowel obstruction: Status: Acute Plan 84-year-old female with a PMH significant for?HLD, HTN, peripheral neuropathy, hx of endometrial cancer, hx of hysterectomy, and chronic lower back pain secondary to intermittent spinal claudication who presents to the ED with?abdominal pain, nausea, vomiting and diarrhea and admitted for sbo SBO with n/v, NGT in place with significant bilious drainage KUB 3, mild constipation and no acute process KUB 09/10 showed no interval distal progression of enteric contrast in the small bowel compared to prior consistent with a high-grade small-bowel obstruction Case discussed with general surgery, plan is OR for exploration Continue IVF LR , keep NPO AGUILAR, likely ATN from IV contrast Resolved, cr from 2.69 to 1.64 0.97 >0.97 Continue Reese cath, draining straw colored urine Continue to avoid nephrotoxins and hypotension. Acute hypokalemia replete and follow labs. Elevated troponin but flat no complain of chest pain, EKG with no acute ischemia, likely demand ischemia ,no further workup. Leukocytosis, WBC trending down, possible colitis on CT continue empiric Ceftriaxone and Flagyl Follow CBC Abnormal CT findings CTA of abdomen/pelvis found evidence of possible IBD and liver cirrhosis HLD hold statin, aspirin HTN lisinopril and, hydrochlorothiazide held d/t renal failure BP climbing up will follow Chronic lower back pain/lumbar spondylosis Continue carbamazepine DNR/DNI, DVT Prophylaxis: Pneumatic compression, heparin Need for inpt: Active SBO with NGT, IVF, need for surgery Quality Stroke Does the patient have a stroke diagnosis?: No VTE Prior VTE?: No VTE Risk Level:: Medical - moderate - high VTE Device Contraindication: N/A - Device Ordered VTE Drug Contraindication: Treatment Not Indicated
[2024-09-10] MEDS: Potassium Chloride/H20 10 MEQ/100 ML PIGGYBACK 100 MEQ IV ×2 (13:41→15:05)
--- NOTE | 2024-09-10 13:54 | PC.NURSE ---
Patient had multiple visitors at bedside, one was on the phone with patients friend and updating her with current plans and information. The friend on the phone was asking to speak to the nurse and was demanding changes in plan of care. This nurse did not feel comfortable with speaking to the friend on the visitors personal cell phone and was asked to call the facility. The patient gave verbal consent to speak to the friend named Brynn. Brynn did call and introduced herself as Brynn Puckett, the former wound and ostomy nurse for [facility]. Brynn continued to give this RN a lesson on bowel vascularity and the urgent need for an MRI stating that every second you delay an MRI is another moment the patients bowel could be dying and one moment you might walk in and she may be . Anel was reassurred by this nurse that the patient is being well taken care of and the doctors know what they are doing. She was also reminded that it is out of a nurses scope of practice to order an MRI. She then requested that the doctor contact
--- NOTE | 2024-09-10 14:02 | PC.NURSE ---
Patient had multiple visitors at bedside, one was on the phone with patients friend and updating her with current plans and information. The friend on the phone was asking to speak to the nurse and was demanding changes in plan of care. This nurse did not feel comfortable with speaking to the friend on the visitors personal cell phone and was asked to call the facility. The patient gave verbal consent to speak to the friend named Brynn. Brynn did call and introduced herself as Brynn Puckett, the former wound and ostomy nurse for [facility]. Brynn continued to give this RN a lesson on bowel vascularity and the urgent need for an MRI stating that every second you delay an MRI is another moment the patients bowel could be dying and one moment you might walk in and she may be . Anel was reassurred by this nurse that the patient is being well taken care of and the doctors know what they are doing. She was also reminded that it is out of a nurses scope of practice to order an MRI. She then requested that the doctor call her to speak about ordering an MRI. Dr. Choudhary was alerted of this situation. Dr. Choudhary requested this message be forwarded to the surgeon. Message was given to surgeon Dr. Casey who later came to bedside and discussed with patient.
--- NOTE | 2024-09-10 14:41 | PM.EVENT ---
Event Note Date of Service: 09/10/24 Event Note: pt still not passing gas or stool and high ng output. abdo quiet nontender but not improving kub this am with no advancement of contrast plan to take to OR for exploration. Risks and benefits discussed with the patient and she agrees with the plan Time Spent With Patient Time: Total time managing care of this patient today ____ minutes.
--- NOTE | 2024-09-10 15:28 | HO.ANESPROP2 ---
[facility] Active Problems Active Problems: All Active Problems AGUILAR (acute kidney injury) (Acute) Intractable abdominal pain (Acute) Ileus (Acute) Small bowel obstruction (Acute) Abdominal pain (Acute) Lumbar spondylosis (Acute) Frequent falls (Acute) Piriformis syndrome of right side (Acute) Renal cyst (Acute) Urinary tract infection (Acute) Microscopic hematuria (Acute) Past Medical History Medical History Lumbar spondylosis Autonomic neuropathy due to type 2 diabetes mellitus History of seizure disorder Intermittent spinal claudication Neuropathy Localization-related (focal) (partial) symptomatic epilepsy and epileptic syndromes with simple partial seizures, not intractable, without status epilepticus Hypercholesteremia Essential hypertension Endometrial cancer Family History Family history of problems with anesthesia: No Surgical History Surgical History History of hysterectomy with bilateral oophorectomy History of Problems with Anesthesia: No Social History Social History Household Members: None Housing: Assisted Living Facility Housing Other:: [facility] Do you presently have visiting nurse or other home services: No Alcohol intake: current Alcohol intake frequency: holidays/special occasions only Patient Tobacco Use Status: Never used Tobacco service: No Current occupational status: retired [employer] Allergies Allergy/AdvReac Type Severity Reaction Status Date / Time No Known Allergies Allergy Verified 09/06/24 14:15 Active Medications: Current Medications Acetaminophen (Acetaminophen 325 Mg Tablet) 650 mg PO Q6H PRN PRN Reason: Pain, Mild 1-3,fever,headache Last Admin: 09/09/24 15:30 Dose: 650 mg Benzocaine (Throat Lozenge, Medicated Lozenge) 1 lozenge MUCOUS MEM Q2H PRN PRN Reason: Sore Throat Last Admin: 09/10/24 03:42 Dose: 1 lozenge Carbamazepine (Carbamazepine 200 Mg Tablet) 200 mg PO BID [facility] Last Admin: 09/10/24 07:24 Dose: 200 mg Ceftriaxone Sodium (Ceftriaxone Sodium 1 Gm Vial) 1 gm IVPUSH Q24H [facility] Last Admin: 09/10/24 09:56 Dose: 1 gm Heparin Sodium (Porcine) (Heparin Sodium,Porcine 5,000 Unit/Ml Vial) 5,000 unit SUBCUT Q12H [facility] Last Admin: 09/10/24 09:57 Dose: 5,000 unit Metronidazole (Flagyl) 500 mg in 100 mls @ 100 mls/hr IV Q8H [facility] Last Infusion: 09/10/24 11:22 Dose: Infused Lactated Ringer's (Lr) 1,000 mls @ 100 mls/hr IVCONT .Q10H [facility] Last Admin: 09/10/24 08:16 Dose: 100 mls/hr Potassium Chloride (Potassium Chloride/H20) 10 meq in 100 mls @ 100 mls/hr IV Q1H [facility] Stop: 09/10/24 15:29 Last Admin: 09/10/24 15:05 Dose: 100 mls/hr Melatonin (Melatonin 3 Mg Tablet) 6 mg PO BEDTIME PRN PRN Reason: Insomnia Last Admin: 09/10/24 00:04 Dose: 6 mg Morphine Sulfate (Morphine Sulfate 4 Mg/Ml Cartridge) 2 mg IVPUSH Q4H PRN; Protocol PRN Reason: Pain, Severe (Pain Scale 7-10) Last Admin: 09/07/24 12:51 Dose: 2 mg Multi-Ingred Medicated Throat [place] (Throat [place], Medicated 177 Ml Bottle) 1 spray MUCOUS MEM Q2H PRN PRN Reason: Sore Throat Ondansetron HCl (Ondansetron Hcl 4 Mg/2 Ml Vial) 4 mg IVPUSH Q8H PRN PRN Reason: Nausea and Vomiting Last Admin: 09/10/24 07:32 Dose: 4 mg Sodium Chloride (0.9 % Sodium Chloride Flush 3 Ml Syringe) 3 ml IVFLUSH QSHIFT [facility] Last Admin: 09/10/24 07:24 Dose: 3 ml Trazodone HCl (Trazodone Hcl 50 Mg Tablet) 50 mg PO BEDTIME PRN PRN Reason: Insomnia Home Medications ?Medication ?Instructions ?Recorded ?Confirmed ?Last Taken ?Type aspirin 81 mg tablet,delayed 81 mg PO DAILY 08/17/23 09/06/24 09/06/24 History release atorvastatin 80 mg tablet 80 mg PO BEDTIME 08/17/23 09/06/24 09/05/24 History carbamazepine 200 mg tablet 200 mg PO BID 08/17/23 09/06/24 09/06/24 History lisinopril 10 1 tab PO DAILY 08/17/23 09/06/24 09/06/24 History mg-hydrochlorothiazide 12.5 mg tablet Exam Height,Weight and Vital Signs: Height 5 ft 5 in Weight 91.4 kg Last Vital Signs Temp 97.9 F 09/10/24 15:02 Pulse 71 09/10/24 15:02 Resp 16 09/10/24 15:02 BP 177/79 H 09/10/24 15:02 Pulse Ox 93 09/10/24 15:02 O2 Del Method Nasal Cannula 09/10/24 15:02 O2 Flow Rate 4 09/10/24 15:02 Pertinent Lab Results Pertinent Lab Results: Laboratory Tests 09/06/24 09/06/24 09/07/24 15:04 16:44 05:03 WBC 19.6 H 21.7 H RBC 5.39 5.86 H Hgb 16.0 17.3 H Hct 47.9 H 51.4 H MCV 88.9 87.7 MCH 29.7 29.5 MCHC 33.4 33.7 RDW 13.1 13.5 Plt Count TNP 447 H D MPV 10.0 9.7 Immature Gran % (Auto) Cancelled Neut % (Auto) Cancelled Lymph % (Auto) Cancelled [place] % (Auto) Cancelled Eos % (Auto) Cancelled Baso % (Auto) Cancelled Lymph # (Auto) Cancelled [place] # (Auto) Cancelled Eos # (Auto) Cancelled Baso # (Auto) Cancelled Abs Immat Gran (auto) Cancelled Absolute Neuts (auto) Cancelled Absolute Nucleated RBC 0.000 0.000 Nucleated RBC % (auto) 0.0 0.0 Neutrophils % (Manual) 93 H Band Neutrophils % 1 L Lymphocytes % (Manual) 5 L Monocytes % (Manual) 1 L Abs Neuts (Manual) 18.4 H Lymphocytes # (Manual) 1.0 L Monocytes # (Manual) 0.2 Platelet Estimate NORMAL Plt Morphology Comment NORMAL RBC Morphology NOTED Acanthocytes (Spur) 2+ (3-5) Sodium 134 L 137 Potassium 3.8 3.9 Chloride 107 103 Carbon Dioxide 15 L 19 L Anion Gap 16 19 BUN 14 22 H Creatinine 0.63 1.22 Estim Creat Clear Calc 71.5 36.9 Estimated GFR > 60 42 Random Glucose 154 H 176 H Calcium 9.1 9.3 Magnesium 2.1 Total Bilirubin 0.3 AST 31 ALT 16 Alkaline Phosphatase 119 H Troponin I High Sens Total Protein 7.2 Albumin 3.4 L Urine Color Dark Yellow Urine Appearance Clear Urine pH 6.0 Ur Specific [place] >= 1.030 H Urine Protein 30 (1+) H Urine Glucose (UA) Negative Urine Ketones Trace Urine Blood Negative Urine Nitrite Negative Ur Leukocyte Esterase Negative Urine RBC 0-2 Urine WBC 0-5 Ur Squamous Epith Cells 3-5 Urine Bacteria None Seen Hyaline Casts 3-5 Influenza Type A (PCR) NEGATIVE Influenza Type B (PCR) NEGATIVE RSV RNA Qual (PCR) NEGATIVE SARS-CoV-2 RNA (RT-PCR) NEGATIVE 09/07/24 09/08/24 09/08/24 18:35 01:03 08:45 WBC 18.4 H RBC 4.86 Hgb 14.4 Hct 42.9 MCV 88.3 MCH 29.6 MCHC 33.6 RDW 13.7 Plt Count 291 D MPV 9.8 Immature Gran % (Auto) Neut % (Auto) Lymph % (Auto) Stephenson % (Auto) Eos % (Auto) Baso % (Auto) Lymph # (Auto) [place] # (Auto) Eos # (Auto) Baso # (Auto) Abs Immat Gran (auto) Absolute Neuts (auto) Absolute Nucleated RBC 0.000 Nucleated RBC % (auto) 0.0 Neutrophils % (Manual) Band Neutrophils % Lymphocytes % (Manual) Monocytes % (Manual) Abs Neuts (Manual) Lymphocytes # (Manual) Monocytes # (Manual) Platelet Estimate Plt Morphology Comment RBC Morphology Acanthocytes (Spur) Sodium 138 Potassium 4.0 Chloride 100 Carbon Dioxide 21 L Anion Gap 21 H BUN 44 H Creatinine 2.69 H Estim Creat Clear Calc 16.7 Estimated GFR 17 Random Glucose 133 H Calcium 8.7 D Magnesium Total Bilirubin AST ALT Alkaline Phosphatase Troponin I High Sens 73.8 H* 101.3 H* Total Protein Albumin Urine Color Urine Appearance Urine pH Ur Specific [place] Urine Protein Urine Glucose (UA) Urine Ketones Urine Blood Urine Nitrite Ur Leukocyte Esterase Urine RBC Urine WBC Ur Squamous Epith Cells Urine Bacteria Hyaline Casts Influenza Type A (PCR) Influenza Type B (PCR) RSV RNA Qual (PCR) SARS-CoV-2 RNA (RT-PCR) 09/08/24 09/09/24 09/10/24 11:15 07:54 07:32 WBC 15.1 H 14.0 H RBC 4.43 4.39 Hgb 13.1 13.0 Hct 37.7 37.6 MCV 85.1 85.6 MCH 29.6 29.6 MCHC 34.7 34.6 RDW 13.6 13.4 Plt Count 314 335 MPV 9.6 9.6 Immature Gran % (Auto) Neut % (Auto) Lymph % (Auto) [place] % (Auto) Eos % (Auto) Baso % (Auto) Lymph # (Auto) [place] # (Auto) Eos # (Auto) Baso # (Auto) Abs Immat Gran (auto) Absolute Neuts (auto) Absolute Nucleated RBC 0.000 0.000 Nucleated RBC % (auto) 0.0 0.0 Neutrophils % (Manual) Band Neutrophils % Lymphocytes % (Manual) Monocytes % (Manual) Abs Neuts (Manual) Lymphocytes # (Manual) Monocytes # (Manual) Platelet Estimate Plt Morphology Comment RBC Morphology Acanthocytes (Spur) Sodium 135 139 Potassium 3.6 3.2 L Chloride 101 101 Carbon Dioxide 23 23 Anion Gap 15 18 BUN 49 H 51 H Creatinine 1.64 H 0.97 Estim Creat Clear Calc 27.5 46.5 Estimated GFR 30 54 Random Glucose 114 113 Calcium 8.8 9.0 Magnesium Total Bilirubin AST ALT Alkaline Phosphatase Troponin I High Sens 117.1 H* Total Protein Albumin Urine Color Urine Appearance Urine pH Ur Specific [place] Urine Protein Urine Glucose (UA) Urine Ketones Urine Blood Urine Nitrite Ur Leukocyte Esterase Urine RBC Urine WBC Ur Squamous Epith Cells Urine Bacteria Hyaline Casts Influenza Type A (PCR) Influenza Type B (PCR) RSV RNA Qual (PCR) SARS-CoV-2 RNA (RT-PCR) Airway Mallampati Class: III TM Dist: >3cm Neck ROM: Full Assessment and Plan Assessment Anesthesia Assessment: Anesthesia Plan Discussed and Chart Reviewed Final Anesthetic Review Family History of Problems with Anesthesia: No History of Problems with Anesthesia: No NPO: Yes ASA Class: III and Emergency Final Preanesthetic Review: No Changes in Pt Med Stat, Meds/Allgs Chart Reviewed, Consent Obtained/Reviewed, Anes Risks/Benef Reviewed and DNR Form (If Appl.) Patient Risk: Intermediate Procedure Risk: Intermediate Anesthetic Plan Anesthetic Plan: GA Disposition: Standard PACU
[2024-09-10] MEDS: Acetaminophen 1,000 MG/100 ML PIGGYBACK 400 MG IV ×2 (17:58→21:35)
[2024-09-10] MEDS: Pantoprazole Sodium 40 MG/10 ML VIAL IVPUSH (20:07)
--- NOTE | 2024-09-10 20:27 | P.OP_ITS ---
Operative Note Operative Note Date of Service: 09/10/24 Narrative: Preop diagnosis--small bowel obstruction Postop diagnosis--small bowel obstruction Procedure--exploratory laparotomy and small-bowel resection with anastomosis [facility]DANG[facility] History--patient is an 84-year-old female who is admitted with the abdominal pain and findings consistent of partial small-bowel obstruction. She underwent small bowel follow-through series with barium as IV contrast from her CT scan caused acute kidney injury. She now has resolution of the AGUILAR and repeat x-ray today does not show advancement of the barium as compared to yesterday's films. She has not passed any gas or stool. As a result plan is to carry out exploratory laparotomy Findings--patient had some omental bands going towards the posterior abdomen and deep into the pelvis and these adhesions I think served as a spot for a twist in the small bowel causing a segment of the small bowel to become obstructed and somewhat ischemic. 41 cm segment of small bowel was resected. Patient was noted to have a Meckel's diverticulum which look benign Procedure-- Patient was brought to the operative room under Anesthesia guidance was intubated. She had compression stockings placed before induction. She had already been on antibiotics. Her abdomen was prepped and draped in standard surgical fashion. She had a Reese catheter in place. A midline incision was created superiorly to the umbilicus where there was [place]. She has not old midline incision inferior to the umbilicus. Entering into the peritoneal cavity was noted the distended small bowel. In extending the incision inferior to the umbilicus the omentum was noted to be stuck going down and underneath the omentum some dusky small bowel loops were identified. In trying to move the omentum out of the way there was note of a strip of omental tissue that went towards the posterior peritoneal area and had some small bowel loop kinked around and under it. This was the cause of the obstruction and the cause of compromised to this segment of small bowel. The omental tissue was clamped and ligated and this allowed for it to be and to free up the small bowel. There was a segment which looked dusky and bruised but slowly it improved. There was an area however that looked a little more compromised especially the mesentery being moderately congested and bruised. The small bowel was covered with warm saline towels and then reexamined did about 10 minutes. There was an area that improved that I was still concerned about this segment with a lot of mesenteric congestion and as a result I decided to carry out a limited resection of this most compromised small bowel. However before around the bowel and a Meckel's diverticulum which was moderate in size wide base no palpable tissue of concern centrally was noted. It looked benign and fine. Small bowel was also run proximally. Now the area of concern was brought into the field blue towels placed and using the KISHOR stapler the small bowel proximally and distally was resected for about 41 cm being removed. The LigaSure was used to come across the mesentery. Then using 3-0 silk sutures proximal and this the small bowel was a line [id number] entero arrhythmias were placed and another KISHOR load was fired to create a [id number] anastomosis. The area was examined and there was no bleeding and so the TA stapler was fired across this enterotomy and some of the staple lines was imbricated with 3-0 silk. A good anastomosis was created which looked viable with the remaining bowel. Another area of some omental adhesions in the pelvis was taken down to prevent another focus for a volvulus or twists. Little irrigation was carried out and then the midline incision was closed with running suture 0 PDS superiorly and inferiorly and tied in the middle. This was a loop PDS. Puneet were used to approximate the skin edges. At the end of the case all sponge instrument needle counts were correct. Estimated blood loss was about 10 cc. Specimens sent was the 41 cm of small bowel. Patient was extubated returned stable to recovery room with the NG tube in place and a Reese catheter.
[2024-09-11] MEDS: metroNIDAZOLE/NS 500 MG/100 ML PIGGYBACK 100 MG IV ×3 (02:07→17:56)
[2024-09-11] MEDS: Acetaminophen 1,000 MG/100 ML PIGGYBACK 400 MG IV ×2 (03:11→09:17)
[2024-09-11 03:21] VITALS: BP 160/67; PULSE 72; RESP 20; TEMP 36.9; O2SAT 92
[2024-09-11] MEDS: Lactated Ringers 1,000 ML 150 ML IVCONT (04:54)
[2024-09-11] MEDS: Pantoprazole Sodium 40 MG/10 ML VIAL IVPUSH (05:53)
[2024-09-11] MEDS: Throat Lozenge, Medicated LOZENGE 1 LOZENGE MUCOUS MEM (06:10)
[2024-09-11 07:08] LABS: Hematocrit 39.8 % (37.0-47.0); Hemoglobin 13.4 g/dl (12.0-16.0); Mean Corpuscular HGB Conc 33.7 g/dl (31.0-35.0); Mean Corpuscular Hemoglobin 29.6 pg (27.0-33.0); Mean Corpuscular Volume 87.9 fL (80.0-98.0); Mean Platelet Volume 10.2 fL (9.4-12.3); Platelet Count 348 X10*3/uL (160-400); Red Blood Count 4.53 X10*6/uL (4.20-5.50); Red Cell Distribution Width 13.5 % (11.0-16.0); White Blood Count 14.1 X10*3/uL (4.8-10.8)
[2024-09-11 07:24] LABS: Anion Gap 16 (12-20); Blood Urea Nitrogen 39 mg/dL (9-16); Calcium 8.4 mg/dL (8.4-10.2); Carbon Dioxide 26 mmol/L (22-29); Chloride 104 mmol/L (96-108); Creatinine Clr Calc Pharmacy 65.4; Estimated Glomerular Filt Rate > 60; Glucose Random 84 mg/dL (60-115); Sodium 143 mmol/L (135-145)
[2024-09-11 07:28] VITALS: BP 150/68; PULSE 74; RESP 16; TEMP 36.3; O2SAT 93
--- NOTE | 2024-09-11 08:01 | HO.POSTANES ---
Post Anesthesia Evaluation Post Anesthesia Evaluation Date of Service: 09/11/24 Vital Signs: Vital Signs Temp Pulse Resp BP Pulse Ox O2 Del Method O2 Flow Rate 09/11/24 07:28 97.3 F 74 16 150/68 H 93 Nasal Cannula 4 09/11/24 03:21 98.5 F 72 20 160/67 H 92 09/10/24 23:15 98.8 F 73 18 146/65 H 92 Room Air Anesthesia: General Endotracheal-GETA Mental Status: Awake Pain Control: Satisfactory Nausea/Vomiting: None Hydration: Adequate Anesthesia-Related Issues: No Anes. Related Issues
--- NOTE | 2024-09-11 08:12 | P.PNIM_ITS ---
Subjective Subjective Date of Service: 09/11/24 Interval History: s/p bowel resection for sbo NGT in place with signficant drainage Physical Exam 2 Vital Signs: Vital Signs: Last Vital Signs Temp 97.3 F 09/11/24 07:28 Pulse 74 09/11/24 07:28 Resp 16 09/11/24 07:28 BP 150/68 H 09/11/24 07:28 Pulse Ox 93 09/11/24 07:28 O2 Del Method Nasal Cannula 09/11/24 07:28 O2 Flow Rate 4 09/11/24 07:28 BMI result Body Mass Index 33.5 Const: Other: General: AO X 3, no acute distress Resp: CTA bilateral CVS: S1,S2,RRR GI: decreased bowel sounds, tnder around incision Skin: No rash Neuro: motor grossly intact Psych: appropriate affect Objective Data Active Medications Acetaminophen (Acetaminophen 325 Mg Tablet) 650 mg PO Q6H PRN PRN Reason: Pain, Mild 1-3,fever,headache Last Admin: 09/09/24 15:30 Dose: 650 mg Documented By: CHEY Benzocaine (Throat Lozenge, Medicated Lozenge) 1 lozenge MUCOUS MEM Q2H PRN PRN Reason: Sore Throat Last Admin: 09/11/24 06:10 Dose: 1 lozenge Documented By: GUILLERMO Carbamazepine (Carbamazepine 200 Mg Tablet) 200 mg PO BID [facility] Last Admin: 09/10/24 20:03 Dose: 200 mg Documented By: GUILLERMO Ceftriaxone Sodium (Ceftriaxone Sodium 1 Gm Vial) 1 gm IVPUSH Q24H [facility] Last Admin: 09/10/24 09:56 Dose: 1 gm Documented By: CHEY Heparin Sodium (Porcine) (Heparin Sodium,Porcine 5,000 Unit/Ml Vial) 5,000 unit SUBCUT Q12H [facility] Last Admin: 09/10/24 21:31 Dose: 5,000 unit Documented By: GUILLERMO Metronidazole (Flagyl) 500 mg in 100 mls @ 100 mls/hr IV Q8H [facility] Last Infusion: 09/11/24 03:10 Dose: Infused Documented By: GUILLERMO Lactated Ringer's (Lr) 1,000 mls @ 150 mls/hr IVCONT .Q6H[facility]M [facility] Last Admin: 09/11/24 04:54 Dose: 150 mls/hr Documented By: GUILLERMO Acetaminophen (Ofirmev) 1,000 mg in 100 mls @ 400 mls/hr IV Q6H [facility] Stop: 09/11/24 10:14 Last Infusion: 09/11/24 03:28 Dose: Infused Documented By: GUILLERMO Melatonin (Melatonin 3 Mg Tablet) 6 mg PO BEDTIME PRN PRN Reason: Insomnia Last Admin: 09/10/24 00:04 Dose: 6 mg Documented By: JUSTUS Morphine Sulfate (Morphine Sulfate 4 Mg/Ml Cartridge) 2 mg IVPUSH Q4H PRN; Protocol PRN Reason: Pain, Severe (Pain Scale 7-10) Last Admin: 09/07/24 12:51 Dose: 2 mg Documented By: NABOR Morphine Sulfate (Morphine Sulfate 4 Mg/Ml Cartridge) 4 mg IVPUSH Q4H PRN; Protocol PRN Reason: Pain, Severe (Pain Scale 7-10) Multi-Ingred Medicated Throat [place] (Throat [place], Medicated 177 Ml Bottle) 1 spray MUCOUS MEM Q2H PRN PRN Reason: Sore Throat Ondansetron HCl (Ondansetron Hcl 4 Mg/2 Ml Vial) 4 mg IVPUSH Q8H PRN PRN Reason: Nausea and Vomiting Last Admin: 09/10/24 07:32 Dose: 4 mg Documented By: CHEY Pantoprazole Sodium (Pantoprazole Sodium 40 Mg/10 Ml Vial) 40 mg IVPUSH DAILY@0630 [facility] Last Admin: 09/11/24 05:53 Dose: 40 mg Documented By: GUILLERMO Sodium Chloride (0.9 % Sodium Chloride Flush 3 Ml Syringe) 3 ml IVFLUSH QSHIFT [facility] Last Admin: 09/11/24 00:18 Dose: Not Given Documented By: GUILLERMO Non-Admin Reason: IV Running Trazodone HCl (Trazodone Hcl 50 Mg Tablet) 50 mg PO BEDTIME PRN PRN Reason: Insomnia Labs 09/11/24 05:31 09/11/24 05:31 Labs: Laboratory Results - last 24 hr 09/11/24 05:31 MCV 87.9 MCH 29.6 MCHC 33.7 RDW 13.5 Plt Count 348 MPV 10.2 Absolute Nucleated RBC 0.000 Nucleated RBC % (auto) 0.0 Anion Gap 16 Estim Creat Clear Calc 65.4 Estimated GFR > 60 Random Glucose 84 Calcium 8.4 D Assessment and Plan (1) AGUILAR (acute kidney injury): Status: Acute (2) Intractable abdominal pain: Status: Acute (3) Small bowel obstruction: Status: Acute Plan 84-year-old female with a PMH significant for?HLD, HTN, peripheral neuropathy, hx of endometrial cancer, hx of hysterectomy, and chronic lower back pain secondary to intermittent spinal claudication who presents to the ED with?abdominal pain, nausea, vomiting and diarrhea and admitted for sbo SBO KUB 09/08, mild constipation and no acute process KUB 09/10 showed no interval distal progression of enteric contrast in the small bowel compared to prior consistent with a high-grade small-bowel obstruction S/p Ex lap, bowel resection on 09/10 Continue IVF LR , NGT and NPO AGUILAR, possible pre renal vs ATN from contrast, resolved. Acute hypOkalemia, IV replacement Elevated troponin but flat no complain of chest pain, EKG with no acute ischemia, likely demand ischemia ,no further workup. Leukocytosis, WBC trending down, possible colitis on CT continue empiric Ceftriaxone and Flagyl Follow CBC Abnormal CT findings CTA of abdomen/pelvis found evidence of possible IBD and liver cirrhosis HLD hold statin, aspirin HTN lisinopril and, hydrochlorothiazide held d/t renal failure Norvasc if going if needed Chronic lower back pain/lumbar spondylosis Continue carbamazepine DNR/DNI, DVT Prophylaxis: Pneumatic compression, heparin Need for inpt: Active SBO with NGT, IVF, need for surgery Quality Stroke Does the patient have a stroke diagnosis?: No VTE Prior VTE?: No VTE Risk Level:: Medical - moderate - high VTE Device Contraindication: N/A - Device Ordered VTE Drug Contraindication: Treatment Not Indicated
--- NOTE | 2024-09-11 08:33 | PM.PNGS ---
Subjective Subjective Date of Service: 09/11/24 Interval history: Patient actually feels improved this morning with less abdominal pain. NG tube in place with bilious output noted. No flatus or BM reported. Physical Exam Vital Signs: Vital Signs: Last Vital Signs Temp 97.3 F 09/11/24 07:28 Pulse 74 09/11/24 07:28 Resp 16 09/11/24 07:28 BP 150/68 H 09/11/24 07:28 Pulse Ox 93 09/11/24 07:28 O2 Del Method Nasal Cannula 09/11/24 07:28 O2 Flow Rate 4 09/11/24 07:28 BMI result Body Mass Index 33.5 Const: General: no acute distress Nutritional Appearance: well nourished Orientation/consciousness: patient oriented x3 Resp: Effort & Inspection: normal respiratory effort, no audible wheezes, no cough and no respiratory distress GI: Other: Dressings with some staining in the lower incision otherwise clean and intact Skin: Other: Warm, dry, no rash Neuro: General: patient oriented x3 Extrem: Other: No tenderness, no edema Objective Data Active Medications Acetaminophen (Acetaminophen 325 Mg Tablet) 650 mg PO Q6H PRN PRN Reason: Pain, Mild 1-3,fever,headache Last Admin: 09/09/24 15:30 Dose: 650 mg Documented By: CHEY Benzocaine (Throat Lozenge, Medicated Lozenge) 1 lozenge MUCOUS MEM Q2H PRN PRN Reason: Sore Throat Last Admin: 09/11/24 06:10 Dose: 1 lozenge Documented By: GUILLERMO Carbamazepine (Carbamazepine 200 Mg Tablet) 200 mg PO BID [facility] Last Admin: 09/10/24 20:03 Dose: 200 mg Documented By: GUILLERMO Ceftriaxone Sodium (Ceftriaxone Sodium 1 Gm Vial) 1 gm IVPUSH Q24H [facility] Last Admin: 09/10/24 09:56 Dose: 1 gm Documented By: CHEY Heparin Sodium (Porcine) (Heparin Sodium,Porcine 5,000 Unit/Ml Vial) 5,000 unit SUBCUT Q12H [facility] Last Admin: 09/10/24 21:31 Dose: 5,000 unit Documented By: GUILLERMO Metronidazole (Flagyl) 500 mg in 100 mls @ 100 mls/hr IV Q8H [facility] Last Infusion: 09/11/24 03:10 Dose: Infused Documented By: GUILLERMO Acetaminophen (Ofirmev) 1,000 mg in 100 mls @ 400 mls/hr IV Q6H [facility] Stop: 09/11/24 10:14 Last Infusion: 09/11/24 03:28 Dose: Infused Documented By: GUILLERMO Potassium Chloride/Dextrose/Sod Cl (Kcl 30 Meq In 5% Dex/0.45% Sod) 30 meq in 1,000 mls @ 125 mls/hr IVCONT .Q8H [facility] Melatonin (Melatonin 3 Mg Tablet) 6 mg PO BEDTIME PRN PRN Reason: Insomnia Last Admin: 09/10/24 00:04 Dose: 6 mg Documented By: JUSTUS Morphine Sulfate (Morphine Sulfate 4 Mg/Ml Cartridge) 2 mg IVPUSH Q4H PRN; Protocol PRN Reason: Pain, Severe (Pain Scale 7-10) Last Admin: 09/07/24 12:51 Dose: 2 mg Documented By: NABOR Morphine Sulfate (Morphine Sulfate 4 Mg/Ml Cartridge) 4 mg IVPUSH Q4H PRN; Protocol PRN Reason: Pain, Severe (Pain Scale 7-10) Multi-Ingred Medicated Throat [place] (Throat [place], Medicated 177 Ml Bottle) 1 spray MUCOUS MEM Q2H PRN PRN Reason: Sore Throat Ondansetron HCl (Ondansetron Hcl 4 Mg/2 Ml Vial) 4 mg IVPUSH Q8H PRN PRN Reason: Nausea and Vomiting Last Admin: 09/10/24 07:32 Dose: 4 mg Documented By: CHEY Pantoprazole Sodium (Pantoprazole Sodium 40 Mg/10 Ml Vial) 40 mg IVPUSH DAILY@0630 [facility] Last Admin: 09/11/24 05:53 Dose: 40 mg Documented By: GUILLERMO Sodium Chloride (0.9 % Sodium Chloride Flush 3 Ml Syringe) 3 ml IVFLUSH QSHIFT [facility] Last Admin: 09/11/24 00:18 Dose: Not Given Documented By: GUILLERMO Non-Admin Reason: IV Running Trazodone HCl (Trazodone Hcl 50 Mg Tablet) 50 mg PO BEDTIME PRN PRN Reason: Insomnia Labs 09/11/24 05:31 09/11/24 05:31 Labs: Laboratory Results - last 24 hr 09/11/24 05:31 MCV 87.9 MCH 29.6 MCHC 33.7 RDW 13.5 Plt Count 348 MPV 10.2 Absolute Nucleated RBC 0.000 Nucleated RBC % (auto) 0.0 Anion Gap 16 Estim Creat Clear Calc 65.4 Estimated GFR > 60 Random Glucose 84 Calcium 8.4 D Procedures Date of Service Date of Service: 09/11/24 Progress Note: A&P Assessment and plan (1) Small bowel obstruction: Status: Acute Plan POD #1 s/p exploratory laparotomy, lysis of adhesions, small-bowel resection for small-bowel obstruction. 1750 mL of bilious fluid aspirated in NG tube over the last 24 hours. We will keep NG tube in place. Remove Reese later today. Encouraged incentive spirometry and out of bed. Keep NPO. Time Spent With Patient Time: Total time managing care of this patient today ____ minutes. Quality Stroke Does the patient have a stroke diagnosis?: No VTE Prior VTE?: No VTE Risk Level:: Medical - moderate - high VTE Device Contraindication: N/A - Device Ordered VTE Drug Contraindication: Treatment Not Indicated
[2024-09-11] MEDS: DEX IVCONT ×2 (08:38→21:37)
[2024-09-11] MEDS: KCL IVCONT ×2 (08:38→21:37)
[2024-09-11] MEDS: SOD IVCONT ×2 (08:38→21:37)
[2024-09-11] MEDS: 0.9 % Sodium Chloride Flush 3 ML SYRINGE IVFLUSH ×2 (08:40→21:35)
[2024-09-11] MEDS: carBAMazepine 200 MG TABLET PO ×2 (09:18→21:44)
[2024-09-11 10:16] VITALS: BMI 33.5
[2024-09-11] MEDS: cefTRIAXone sodium 1 GM VIAL IVPUSH (10:44)
[2024-09-11] MEDS: Heparin Sodium,Porcine 5,000 UNIT/ML VIAL 5000 UNIT SUBCUT ×2 (10:45→21:45)
--- NOTE | 2024-09-11 10:48 | MHC.CLN ---
NUTRITION PATIENT IS NPO X 6 DAYS. S/P BOWEL RESECTION FOR SBO. PER MD, START PPN TODAY. RECOMMEND PPN AT 45 ML/HOUR, 46 G PROTEIN, 108 G DEXTROSE, 551 KCALS. REPLETE LYTES NEEDED. CHECK TRIGLYERIDES. MONITOR FOR BOWEL FUNCTION, PPN TOLERANCE, AND DIET ADVANCEMENT. SEE CLINICAL NUTRITION ASSESSMENT 09/11/24.
[2024-09-11 11:23] LABS: Albumin Level 2.8 g/dL (3.5-5.0); Magnesium 2.4 mg/dL (1.6-2.6); Phosphorus 2.8 mg/dL (2.7-4.5); Triglycerides 117 mg/dL (<150)
--- NOTE | 2024-09-11 11:28 | P.PNNP_ITS ---
Subjective Subjective Date of Service: 09/11/24 Interval history: s/p bowel resection for sbo NGT in place with signficant drainage Physical Exam 2 Vital Signs: Vital Signs: Last Vital Signs Temp 97.3 F 09/11/24 07:28 Pulse 74 09/11/24 07:28 Resp 16 09/11/24 07:28 BP 150/68 H 09/11/24 07:28 Pulse Ox 93 09/11/24 07:28 O2 Del Method Nasal Cannula 09/11/24 07:28 O2 Flow Rate 4 09/11/24 07:28 BMI result Body Mass Index 33.5 Const: General: comfortable and no acute distress O rientation/consciousness: patient oriented x3 HEENT: Head: Yes normocephalic Mouth: Normal oral and palatal mucosa present Eyes: EOM: EOMs intact bilaterally Neck: Neck: Yes supple Resp: Auscultation: clear to auscultation bilaterally Cardio: Jugular venous distension: no JVD Rate: regular rate Heart sounds: Murmur heart sound present GI: Palpation (GI): Soft to palpation Skin: General skin exam: no rashes or lesions noted Neuro: General: patient oriented x3 and moves all extremities Extrem: General: Yes no pedal edema Objective Data Labs 09/12/24 05:39 09/12/24 05:39 Labs: Laboratory Results - last 24 hr 09/11/24 05:31 WBC 14.1 H RBC 4.53 Hgb 13.4 Hct 39.8 MCV 87.9 MCH 29.6 MCHC 33.7 RDW 13.5 Plt Count 348 MPV 10.2 Absolute Nucleated RBC 0.000 Nucleated RBC % (auto) 0.0 Sodium 143 Potassium 3.0 L Chloride 104 Carbon Dioxide 26 Anion Gap 16 BUN 39 H Creatinine 0.69 Estim Creat Clear Calc 65.4 Estimated GFR > 60 Random Glucose 84 Calcium 8.4 D Phosphorus 2.8 Magnesium 2.4 Albumin 2.8 L Triglycerides 117 Procedures Date of Service Date of Service: 09/12/24 Assessment & Plan Assessment and plan (1) AGUILAR (acute kidney injury): Status: Acute Plan AGUILAR due to tubular injury( Had IV contrast as well at presentation) U/A non supportive of GN/AIN. UO fair; No obstruction by imaging Renal function is improving. Creatinine is down to 0.69. Mild hypokalemia. Replace potassium as needed C/W IV fluids and supportive care for now; Time Spent With Patient Time: Total time managing care of this patient today ____ minutes. Progress Note: Quality Stroke Does the patient have a stroke diagnosis?: No
[2024-09-11 11:32] VITALS: BP 159/69; PULSE 74; RESP 24; TEMP 36.3; O2SAT 93
--- NOTE | 2024-09-11 14:07 | MHC.CM.PN ---
per rounds this morning pt expected to be dcd the end of the week
[2024-09-11 15:22] VITALS: BP 153/73; PULSE 76; RESP 16; TEMP 36.4; O2SAT 93
--- NOTE | 2024-09-11 18:06 | PC.NURSE ---
Ordered IV fluids marked done in SEP. Infusion not yet complete at this time. Awaiting for completion before hanging next bag.
[2024-09-11 19:24] VITALS: BP 141/76; PULSE 79; RESP 17; TEMP 36.5; O2SAT 93
[2024-09-11 20:02] LABS: Anion Gap 11 (12-20); Carbon Dioxide 30 mmol/L (22-29); Chloride 105 mmol/L (96-108); Potassium 3.4 mmol/L (3.3-5.1); Sodium 143 mmol/L (135-145)
[2024-09-11] MEDS: Parenteral Nutrition 1,080 ML 45 ML IV (21:39)
[2024-09-12] VITALS (7 sets, daily range): BP systolic 140–175; BP diastolic 60–86; PULSE 67–82; RESP 16–18; TEMP 36–36.8; O2SAT 91–96
[2024-09-12] MEDS: metroNIDAZOLE/NS 500 MG/100 ML PIGGYBACK 100 MG IV ×3 (01:34→18:37)
[2024-09-12] MEDS: Throat Lozenge, Medicated LOZENGE 1 LOZENGE MUCOUS MEM ×2 (03:20→20:54)
[2024-09-12] MEDS: Pantoprazole Sodium 40 MG/10 ML VIAL IVPUSH (05:33)
[2024-09-12 06:24] LABS: Hematocrit 35.9 % (37.0-47.0); Mean Corpuscular HGB Conc 33.4 g/dl (31.0-35.0); Mean Corpuscular Hemoglobin 29.4 pg (27.0-33.0); Mean Platelet Volume 9.9 fL (9.4-12.3); Platelet Count 288 X10*3/uL (160-400); Red Blood Count 4.08 X10*6/uL (4.20-5.50); Red Cell Distribution Width 13.5 % (11.0-16.0); White Blood Count 10.9 X10*3/uL (4.8-10.8)
[2024-09-12 06:39] LABS: Albumin Level 2.6 g/dL (3.5-5.0); Anion Gap 11 (12-20); Blood Urea Nitrogen 26 mg/dL (9-16); Calcium 8.5 mg/dL (8.4-10.2); Carbon Dioxide 28 mmol/L (22-29); Chloride 107 mmol/L (96-108); Creatinine Clr Calc Pharmacy 75.1; Estimated Glomerular Filt Rate > 60; Glucose Random 158 mg/dL (60-115); Magnesium 2.4 mg/dL (1.6-2.6); Phosphorus 1.6 mg/dL (2.7-4.5); Potassium 3.6 mmol/L (3.3-5.1); Sodium 142 mmol/L (135-145)
[2024-09-12] MEDS: carBAMazepine 200 MG TABLET PO ×2 (08:44→20:54)
--- NOTE | 2024-09-12 09:01 | PC.NURSE ---
NGT clamped at 0850 per Doctor's order. Patient educated to immediately report increased abdominal pain, nausea, or vomiting. Verbalized understanding.
--- NOTE | 2024-09-12 09:45 | HO.PM.IMPN ---
Subjective Subjective Date of Service: 09/12/24 Interval History: s/p bowel resection for sbo NGT in place with signficant drainage has mild abdominal tenderness Physical Exam Vital Signs: Vital Signs: Last Vital Signs Temp 97.8 F 09/12/24 07:47 Pulse 77 09/12/24 07:47 Resp 16 09/12/24 07:47 BP 140/60 H 09/12/24 07:47 Pulse Ox 91 L 09/12/24 07:47 O2 Del Method Nasal Cannula 09/12/24 07:47 O2 Flow Rate 4 09/12/24 07:47 BMI result Body Mass Index 33.5 Const: Other: General: AO X 3, no acute distress Resp: CTA bilateral CVS: S1,S2,RRR GI: decreased bowel sounds, mild distention,tnder around incision Skin: No rash Neuro: motor grossly intact Psych: appropriate affect Objective Data Active Medications Acetaminophen (Acetaminophen 325 Mg Tablet) 650 mg PO Q6H PRN PRN Reason: Pain, Mild 1-3,fever,headache Last Admin: 09/09/24 15:30 Dose: 650 mg Documented By: CHYE Benzocaine (Throat Lozenge, Medicated Lozenge) 1 lozenge MUCOUS MEM Q2H PRN PRN Reason: Sore Throat Last Admin: 09/12/24 03:20 Dose: 1 lozenge Documented By: GUILLERMO Carbamazepine (Carbamazepine 200 Mg Tablet) 200 mg PO BID [facility] Last Admin: 09/12/24 08:44 Dose: 200 mg Documented By: TANA Ceftriaxone Sodium (Ceftriaxone Sodium 1 Gm Vial) 1 gm IVPUSH Q24H [facility] Last Admin: 09/11/24 10:44 Dose: 1 gm Documented By: TANA Heparin Sodium (Porcine) (Heparin Sodium,Porcine 5,000 Unit/Ml Vial) 5,000 unit SUBCUT Q12H [facility] Last Admin: 09/11/24 21:45 Dose: 5,000 unit Documented By: GUILLERMO Metronidazole (Flagyl) 500 mg in 100 mls @ 100 mls/hr IV Q8H [facility] Last Infusion: 09/12/24 03:12 Dose: Infused Documented By: GUILLERMO Potassium Chloride/Dextrose/Sod Cl (Kcl 30 Meq In 5% Dex/0.45% Sod) 30 meq in 1,000 mls @ 125 mls/hr IVCONT .Q8H [facility] Last Infusion: 09/12/24 08:33 Dose: 125 mls/hr Documented By: TANA Nutrition (Parenteral) (Parenteral Nutrition) 1,080 mls @ 45 mls/hr IV .Q24H [facility]; Protocol Stop: 09/12/24 20:59 Last Admin: 09/11/24 21:39 Dose: 45 mls/hr Documented By: GUILLERMO Melatonin (Melatonin 3 Mg Tablet) 6 mg PO BEDTIME PRN PRN Reason: Insomnia Last Admin: 09/10/24 00:04 Dose: 6 mg Documented By: JUSTUS Morphine Sulfate (Morphine Sulfate 4 Mg/Ml Cartridge) 4 mg IVPUSH Q4H PRN; Protocol PRN Reason: Pain, Severe (Pain Scale 7-10) Multi-Ingred Medicated Throat [place] (Throat [place], Medicated 177 Ml Bottle) 1 spray MUCOUS MEM Q2H PRN PRN Reason: Sore Throat Ondansetron HCl (Ondansetron Hcl 4 Mg/2 Ml Vial) 4 mg IVPUSH Q8H PRN PRN Reason: Nausea and Vomiting Last Admin: 09/10/24 07:32 Dose: 4 mg Documented By: CHEY Pantoprazole Sodium (Pantoprazole Sodium 40 Mg/10 Ml Vial) 40 mg IVPUSH DAILY@0630 [facility] Last Admin: 09/12/24 05:33 Dose: 40 mg Documented By: GUILLERMO Sodium Chloride (0.9 % Sodium Chloride Flush 3 Ml Syringe) 3 ml IVFLUSH QSHIFT [facility] Last Admin: 09/12/24 08:50 Dose: Not Given Documented By: TANA Non-Admin Reason: IV Running Trazodone HCl (Trazodone Hcl 50 Mg Tablet) 50 mg PO BEDTIME PRN PRN Reason: Insomnia Labs 09/12/24 05:39 09/12/24 05:39 Labs: Laboratory Results - last 24 hr 09/11/24 09/11/24 09/12/24 05:31 19:45 05:39 MCV 88.0 MCH 29.4 MCHC 33.4 RDW 13.5 Plt Count 288 MPV 9.9 Absolute Nucleated RBC 0.000 Nucleated RBC % (auto) 0.0 Anion Gap 11 L 11 L Estim Creat Clear Calc 75.1 Estimated GFR > 60 Random Glucose 158 H Calcium 8.5 Phosphorus 2.8 1.6 L Magnesium 2.4 2.4 Albumin 2.8 L 2.6 L Triglycerides 117 Assessment and Plan (1) AGUILAR (acute kidney injury): Status: Acute (2) Intractable abdominal pain: Status: Acute (3) Small bowel obstruction: Status: Acute Plan 84-year-old female with a PMH significant for?HLD, HTN, peripheral neuropathy, hx of endometrial cancer, hx of hysterectomy, and chronic lower back pain secondary to intermittent spinal claudication who presents to the ED with?abdominal pain, nausea, vomiting and diarrhea and admitted for sbo SBO KUB 09/08, mild constipation and no acute process KUB 09/10 showed no interval distal progression of enteric contrast in the small bowel compared to prior consistent with a high-grade small-bowel obstruction S/p Ex lap, bowel resection on 09/10 NPO NGT draining singificant amount continue PPN AGUILAR, possible pre renal vs ATN from contrast, resolved. Acute hypOkalemia, resolved with IV replacement Elevated troponin but flat no complain of chest pain, EKG with no acute ischemia, likely demand ischemia ,no further workup. Leukocytosis, WBC trending down, likely reactive continue empiric Ceftriaxone and Flagyl Follow CBC Abnormal CT findings CTA of abdomen/pelvis found evidence of possible IBD and liver cirrhosis HLD hold statin, aspirin HTN lisinopril and, hydrochlorothiazide held d/t renal failure Norvasc if going if needed Chronic lower back pain/lumbar spondylosis Continue carbamazepine DNR/DNI, DVT Prophylaxis: Pneumatic compression, heparin Need for inpt: Active SBO with NGT, IVF, need for surgery Quality Stroke Does the patient have a stroke diagnosis?: No VTE Prior VTE?: No VTE Risk Level:: Medical - moderate - high VTE Device Contraindication: N/A - Device Ordered VTE Drug Contraindication: Treatment Not Indicated
[2024-09-12] MEDS: Heparin Sodium,Porcine 5,000 UNIT/ML VIAL 5000 UNIT SUBCUT ×2 (10:22→20:54)
[2024-09-12] MEDS: cefTRIAXone sodium 1 GM VIAL IVPUSH (10:22)
--- NOTE | 2024-09-12 10:23 | MHC.CLN ---
F/U REMAINS NPO REVIEWED LABS DISCUSSED WITH PHARMACY RECOMMEND PPN INCREASE TO 70ML/HOUR WITH 65G LIPIDS TO PROVIDE 1507 TOTAL KCALS (26KCALS/KG), 71G PROTEIN 91.25G/KG), 168G DEXTROSE REPLETE LYTES NEEDED
[2024-09-12 11:58] LABS: Glucose, Whole Blood 142 mg/dL (60-115)
--- NOTE | 2024-09-12 12:01 | PM.PNGS ---
Subjective Subjective Date of Service: 09/12/24 Interval history: Patient feels improved this morning with no abdominal pain. Some irritation from the NG tube is reported. Denies any flatus or BM. Physical Exam Vital Signs: Vital Signs: Last Vital Signs Temp 97.8 F 09/12/24 07:47 Pulse 77 09/12/24 07:47 Resp 16 09/12/24 07:47 BP 140/60 H 09/12/24 07:47 Pulse Ox 91 L 09/12/24 07:47 O2 Del Method Nasal Cannula 09/12/24 07:47 O2 Flow Rate 4 09/12/24 07:47 BMI result Body Mass Index 33.5 Const: General: comfortable Nutritional Appearance: well nourished Orientation/consciousness: patient oriented x3 Resp: Effort & Inspection: normal respiratory effort GI: Other: Midline incision clean, dry and intact. Dressings removed no erythema or discharge appreciated. Abdomen is soft nondistended. Skin: Other: Warm, dry, no rash Neuro: General: patient oriented x3 Extrem: General: Yes no clubbing, cyanosis or edema Objective Data Active Medications Acetaminophen (Acetaminophen 325 Mg Tablet) 650 mg PO Q6H PRN PRN Reason: Pain, Mild 1-3,fever,headache Last Admin: 09/09/24 15:30 Dose: 650 mg Documented By: CHEY Benzocaine (Throat Lozenge, Medicated Lozenge) 1 lozenge MUCOUS MEM Q2H PRN PRN Reason: Sore Throat Last Admin: 09/12/24 03:20 Dose: 1 lozenge Documented By: GUILLERMO Carbamazepine (Carbamazepine 200 Mg Tablet) 200 mg PO BID [facility] Last Admin: 09/12/24 08:44 Dose: 200 mg Documented By: TANA Ceftriaxone Sodium (Ceftriaxone Sodium 1 Gm Vial) 1 gm IVPUSH Q24H [facility] Last Admin: 09/12/24 10:22 Dose: 1 gm Documented By: TANA Heparin Sodium (Porcine) (Heparin Sodium,Porcine 5,000 Unit/Ml Vial) 5,000 unit SUBCUT Q12H [facility] Last Admin: 09/12/24 10:22 Dose: 5,000 unit Documented By: TANA Metronidazole (Flagyl) 500 mg in 100 mls @ 100 mls/hr IV Q8H [facility] Last Infusion: 09/12/24 11:52 Dose: Infused Documented By: TANA Nutrition (Parenteral) (Parenteral Nutrition) 1,080 mls @ 45 mls/hr IV .Q24H [facility]; Protocol Stop: 09/12/24 20:59 Last Admin: 09/11/24 21:39 Dose: 45 mls/hr Documented By: GUILLERMO Nutrition (Parenteral) (Parenteral Nutrition) 1,680 mls @ 70 mls/hr IV .Q24H [facility]; Protocol Stop: 09/13/24 20:59 Melatonin (Melatonin 3 Mg Tablet) 6 mg PO BEDTIME PRN PRN Reason: Insomnia Last Admin: 09/10/24 00:04 Dose: 6 mg Documented By: JUSTUS Morphine Sulfate (Morphine Sulfate 4 Mg/Ml Cartridge) 4 mg IVPUSH Q4H PRN; Protocol PRN Reason: Pain, Severe (Pain Scale 7-10) Multi-Ingred Medicated Throat [place] (Throat [place], Medicated 177 Ml Bottle) 1 spray MUCOUS MEM Q2H PRN PRN Reason: Sore Throat Ondansetron HCl (Ondansetron Hcl 4 Mg/2 Ml Vial) 4 mg IVPUSH Q8H PRN PRN Reason: Nausea and Vomiting Last Admin: 09/10/24 07:32 Dose: 4 mg Documented By: CHEY Pantoprazole Sodium (Pantoprazole Sodium 40 Mg/10 Ml Vial) 40 mg IVPUSH DAILY@0630 [facility] Last Admin: 09/12/24 05:33 Dose: 40 mg Documented By: GUILLERMO Sodium Chloride (0.9 % Sodium Chloride Flush 3 Ml Syringe) 3 ml IVFLUSH QSHIFT [facility] Last Admin: 09/12/24 08:50 Dose: Not Given Documented By: TANA Non-Admin Reason: IV Running Trazodone HCl (Trazodone Hcl 50 Mg Tablet) 50 mg PO BEDTIME PRN PRN Reason: Insomnia Labs 09/12/24 05:39 09/12/24 05:39 Labs: Laboratory Results - last 24 hr 09/11/24 09/12/24 09/12/24 19:45 05:39 11:49 MCV 88.0 MCH 29.4 MCHC 33.4 RDW 13.5 Plt Count 288 MPV 9.9 Absolute Nucleated RBC 0.000 Nucleated RBC % (auto) 0.0 Anion Gap 11 L 11 L Estim Creat Clear Calc 75.1 Estimated GFR > 60 POC Glucose 142 H Random Glucose 158 H Calcium 8.5 Phosphorus 1.6 L Magnesium 2.4 Albumin 2.6 L Procedures Date of Service Date of Service: 09/12/24 Progress Note: A&P Assessment and plan (1) Small bowel obstruction: Status: Acute Plan Pod 2 following enterolysis, small-bowel resection. Patient is much more comfortable today with no nausea or vomiting/abdominal pain. Awaiting return of bowel function. We will clamp NG tube and if no GI upset or high output after 4 hours, we will remove the tube. Continue NPO, PPN. Time Spent With Patient Time: Total time managing care of this patient today ____ minutes. Quality Stroke Does the patient have a stroke diagnosis?: No VTE Prior VTE?: No VTE Risk Level:: Medical - moderate - high VTE Device Contraindication: N/A - Device Ordered VTE Drug Contraindication: Treatment Not Indicated
--- NOTE | 2024-09-12 14:30 | PC.NURSE ---
NGT residual checked. Residual approximately 50mL. Dr. Galaviz notified. NGT removed at [address] Galaviz. Device intact. Patient tolerated well. Mouth care provided.
[2024-09-12 18:09] LABS: Glucose, Whole Blood 120 mg/dL (60-115)
[2024-09-12] MEDS: Parenteral Nutrition 1,680 ML 70 ML IV (21:00)
[2024-09-12] MEDS: 0.9 % Sodium Chloride Flush 3 ML SYRINGE IVFLUSH (21:12)
[2024-09-12] MEDS: Melatonin 3 MG TABLET 6 MG PO (23:44)
[2024-09-12] MEDS: traZODone HCL 50 MG TABLET PO (23:49)
[2024-09-12] MEDS: Acetaminophen 325 MG TABLET 650 MG PO (23:49)
[2024-09-13 00:06] LABS: Glucose, Whole Blood 123 mg/dL (60-115)
[2024-09-13] MEDS: metroNIDAZOLE/NS 500 MG/100 ML PIGGYBACK 100 MG IV ×3 (01:22→18:17)
[2024-09-13 02:57] VITALS: BP 160/72; PULSE 75; RESP 18; TEMP 36.7; O2SAT 93
[2024-09-13] MEDS: Pantoprazole Sodium 40 MG/10 ML VIAL IVPUSH (05:52)
[2024-09-13 06:44] LABS: Glucose, Whole Blood 147 mg/dL (60-115)
[2024-09-13 07:05] LABS: Albumin Level 2.5 g/dL (3.5-5.0); Anion Gap 10 (12-20); Blood Urea Nitrogen 23 mg/dL (9-16); Calcium 8.4 mg/dL (8.4-10.2); Carbon Dioxide 26 mmol/L (22-29); Chloride 108 mmol/L (96-108); Creatinine Clr Calc Pharmacy 83.5; Estimated Glomerular Filt Rate > 60; Glucose Random 153 mg/dL (60-115); Magnesium 2.3 mg/dL (1.6-2.6); Phosphorus 3.3 mg/dL (2.7-4.5); Potassium 3.8 mmol/L (3.3-5.1); Sodium 140 mmol/L (135-145)
[2024-09-13 07:10] LABS: Hematocrit 34.8 % (37.0-47.0); Hemoglobin 11.4 g/dl (12.0-16.0); Mean Corpuscular HGB Conc 32.8 g/dl (31.0-35.0); Mean Corpuscular Hemoglobin 29.2 pg (27.0-33.0); Mean Platelet Volume 10.2 fL (9.4-12.3); Platelet Count 302 X10*3/uL (160-400); Red Blood Count 3.91 X10*6/uL (4.20-5.50); Red Cell Distribution Width 13.7 % (11.0-16.0); White Blood Count 9.9 X10*3/uL (4.8-10.8)
[2024-09-13 07:45] VITALS: BP 162/70; PULSE 71; RESP 16; TEMP 36.9; O2SAT 94
--- NOTE | 2024-09-13 08:47 | P.PNIM_ITS ---
Subjective Subjective Date of Service: 09/13/24 Interval History: s/p bowel resection for sbo NGT removed, no bm of flatus Physical Exam 2 Vital Signs: Vital Signs: Last Vital Signs Temp 98.4 F 09/13/24 07:45 Pulse 71 09/13/24 07:45 Resp 16 09/13/24 07:45 BP 162/70 H 09/13/24 07:45 Pulse Ox 94 09/13/24 07:45 O2 Del Method Nasal Cannula 09/13/24 07:45 O2 Flow Rate 2 09/13/24 07:45 BMI result Body Mass Index 33.5 Const: Other: General: AO X 3, no acute distress Resp: CTA bilateral CVS: S1,S2,RRR GI: decreased bowel sounds, mild distention,tnder around incision Skin: No rash Neuro: motor grossly intact Psych: appropriate affect Objective Data Active Medications Acetaminophen (Acetaminophen 325 Mg Tablet) 650 mg PO Q6H PRN PRN Reason: Pain, Mild 1-3,fever,headache Last Admin: 09/12/24 23:49 Dose: 650 mg Documented By: JUSTUS Benzocaine (Throat Lozenge, Medicated Lozenge) 1 lozenge MUCOUS MEM Q2H PRN PRN Reason: Sore Throat Last Admin: 09/12/24 20:54 Dose: 1 lozenge Documented By: JUSTSU Carbamazepine (Carbamazepine 200 Mg Tablet) 200 mg PO BID [facility] Last Admin: 09/12/24 20:54 Dose: 200 mg Documented By: JUSTUS Ceftriaxone Sodium (Ceftriaxone Sodium 1 Gm Vial) 1 gm IVPUSH Q24H [facility] Last Admin: 09/12/24 10:22 Dose: 1 gm Documented By: TANA Heparin Sodium (Porcine) (Heparin Sodium,Porcine 5,000 Unit/Ml Vial) 5,000 unit SUBCUT Q12H [facility] Last Admin: 09/12/24 20:54 Dose: 5,000 unit Documented By: JUSTUS Metronidazole (Flagyl) 500 mg in 100 mls @ 100 mls/hr IV Q8H [facility] Last Infusion: 09/13/24 02:22 Dose: Infused Documented By: JUSTUS Nutrition (Parenteral) (Parenteral Nutrition) 1,680 mls @ 70 mls/hr IV .Q24H [facility]; Protocol Stop: 09/13/24 20:59 Last Admin: 09/12/24 21:00 Dose: 70 mls/hr Documented By: JUSTUS Melatonin (Melatonin 3 Mg Tablet) 6 mg PO BEDTIME PRN PRN Reason: Insomnia Last Admin: 09/12/24 23:44 Dose: 6 mg Documented By: JUSTUS Morphine Sulfate (Morphine Sulfate 4 Mg/Ml Cartridge) 4 mg IVPUSH Q4H PRN; Protocol PRN Reason: Pain, Severe (Pain Scale 7-10) Multi-Ingred Medicated Throat [place] (Throat [place], Medicated 177 Ml Bottle) 1 spray MUCOUS MEM Q2H PRN PRN Reason: Sore Throat Ondansetron HCl (Ondansetron Hcl 4 Mg/2 Ml Vial) 4 mg IVPUSH Q8H PRN PRN Reason: Nausea and Vomiting Last Admin: 09/10/24 07:32 Dose: 4 mg Documented By: CHEY Pantoprazole Sodium (Pantoprazole Sodium 40 Mg/10 Ml Vial) 40 mg IVPUSH DAILY@0630 [facility] Last Admin: 09/13/24 05:52 Dose: 40 mg Documented By: JUSTUS Sodium Chloride (0.9 % Sodium Chloride Flush 3 Ml Syringe) 3 ml IVFLUSH QSHIFT [facility] Last Admin: 09/12/24 21:12 Dose: 3 ml Documented By: JUSTUS Trazodone HCl (Trazodone Hcl 50 Mg Tablet) 50 mg PO BEDTIME PRN PRN Reason: Insomnia Last Admin: 09/12/24 23:49 Dose: 50 mg Documented By: JUSTUS Labs 09/13/24 05:34 09/13/24 05:34 Labs: Laboratory Results - last 24 hr 09/12/24 09/12/24 09/12/24 11:49 18:05 23:52 MCV MCH MCHC RDW Plt Count MPV Absolute Nucleated RBC Nucleated RBC % (auto) Anion Gap Estim Creat Clear Calc Estimated GFR POC Glucose 142 H 120 H 123 H Random Glucose Calcium Phosphorus Magnesium Albumin 09/13/24 09/13/24 05:34 06:38 MCV 89.0 MCH 29.2 MCHC 32.8 RDW 13.7 Plt Count 302 MPV 10.2 Absolute Nucleated RBC 0.000 Nucleated RBC % (auto) 0.0 Anion Gap 10 L Estim Creat Clear Calc 83.5 Estimated GFR > 60 POC Glucose 147 H Random Glucose 153 H Calcium 8.4 Phosphorus 3.3 Magnesium 2.3 Albumin 2.5 L Assessment and Plan (1) AGUILAR (acute kidney injury): Status: Acute (2) Intractable abdominal pain: Status: Acute (3) Small bowel obstruction: Status: Acute Plan 84-year-old female with a PMH significant for?HLD, HTN, peripheral neuropathy, hx of endometrial cancer, hx of hysterectomy, and chronic lower back pain secondary to intermittent spinal claudication who presents to the ED with?abdominal pain, nausea, vomiting and diarrhea and admitted for sbo SBO KUB 09/08, mild constipation and no acute process KUB 09/10 showed no interval distal progression of enteric contrast in the small bowel compared to prior consistent with a high-grade small-bowel obstruction S/p Ex lap, bowel resection on 09/10 NGT removed 09/12 NPO continue PPN started 09/11 AGUILAR, possible pre renal vs ATN from contrast, resolved. Acute hypOkalemia, resolved with IV replacement Elevated troponin but flat no complain of chest pain, EKG with no acute ischemia, likely demand ischemia ,no further workup. Leukocytosis, WBC trending down, likely reactive and possible colitis, resolved continue empiric Ceftriaxone and Flagyl for 7 days Follow CBC Abnormal CT findings CTA of abdomen/pelvis found evidence of possible IBD and liver cirrhosis HLD hold statin, aspirin HTN lisinopril and, hydrochlorothiazide held d/t renal failure Norvasc if going if needed Chronic lower back pain/lumbar spondylosis Continue carbamazepine DNR/DNI, DVT Prophylaxis: Pneumatic compression, heparin Need for inpt: Active SBO with NGT, IVF, need for surgery Quality Stroke Does the patient have a stroke diagnosis?: No VTE Prior VTE?: No VTE Risk Level:: Medical - moderate - high VTE Device Contraindication: N/A - Device Ordered VTE Drug Contraindication: Treatment Not Indicated
--- NOTE | 2024-09-13 08:58 | MHC.CLN ---
F/U REMAINS NPO. NGT REMOVED 09/12. REVIEWED LABS. COMMUNICATED WITH PHARMACY. RECOMMEND CONTINUE PPN AT 70ML/HOUR WITH 65G LIPIDS TO PROVIDE 1507 TOTAL KCALS (26KCALS/KG IBW), 71G PROTEIN (1.25G/KG IBW), 168G DEXTROSE. REPLETE LYTES NEEDED. FOLLOW FOR DIET ADVANCEMENT AND ADJUST PPN NEEDED.
[2024-09-13] MEDS: amLODIPine Besylate 5 MG TABLET PO (09:08)
[2024-09-13] MEDS: cefTRIAXone sodium 1 GM VIAL IVPUSH (09:09)
[2024-09-13] MEDS: carBAMazepine 200 MG TABLET PO ×2 (09:09→21:24)
[2024-09-13] MEDS: Heparin Sodium,Porcine 5,000 UNIT/ML VIAL 5000 UNIT SUBCUT ×2 (09:09→21:24)
--- NOTE | 2024-09-13 09:14 | PM.PNGS ---
Subjective Subjective Date of Service: 09/13/24 Interval history: NGT was removed yesterday. She reports passing a small amount of flatus but nothing significant. She unfortunately began vomiting large amounts of bilious output during her exam. Physical Exam Vital Signs: Vital Signs: Last Vital Signs Temp 98.4 F 09/13/24 07:45 Pulse 71 09/13/24 07:45 Resp 16 09/13/24 07:45 BP 162/70 H 09/13/24 07:45 Pulse Ox 94 09/13/24 07:45 O2 Del Method Nasal Cannula 09/13/24 07:45 O2 Flow Rate 2 09/13/24 07:45 BMI result Body Mass Index 33.5 Const: General: comfortable, no acute distress and alert Orientation/consciousness: patient oriented x3 Resp: Effort & Inspection: normal respiratory effort GI: Inspection: Yes distended and Yes incision (clean) Palpation (GI): Soft to palpation, Tenderness to palpation present (GI) and no guarding Percussion: Yes tympanic to percussion Skin: General skin exam: no rashes or lesions noted Neuro: General: patient oriented x3 and moves all extremities Objective Data Active Medications Acetaminophen (Acetaminophen 325 Mg Tablet) 650 mg PO Q6H PRN PRN Reason: Pain, Mild 1-3,fever,headache Last Admin: 09/12/24 23:49 Dose: 650 mg Documented By: JUSTUS Amlodipine Besylate (Amlodipine Besylate 5 Mg Tablet) 5 mg PO DAILY [facility]; Protocol Benzocaine (Throat Lozenge, Medicated Lozenge) 1 lozenge MUCOUS MEM Q2H PRN PRN Reason: Sore Throat Last Admin: 09/12/24 20:54 Dose: 1 lozenge Documented By: JUSTUS Carbamazepine (Carbamazepine 200 Mg Tablet) 200 mg PO BID [facility] Last Admin: 09/12/24 20:54 Dose: 200 mg Documented By: JUSTUS Ceftriaxone Sodium (Ceftriaxone Sodium 1 Gm Vial) 1 gm IVPUSH Q24H [facility] Last Admin: 09/12/24 10:22 Dose: 1 gm Documented By: TANA Heparin Sodium (Porcine) (Heparin Sodium,Porcine 5,000 Unit/Ml Vial) 5,000 unit SUBCUT Q12H [facility] Last Admin: 09/12/24 20:54 Dose: 5,000 unit Documented By: JUSTUS Metronidazole (Flagyl) 500 mg in 100 mls @ 100 mls/hr IV Q8H [facility] Last Infusion: 09/13/24 02:22 Dose: Infused Documented By: JUSTUS Nutrition (Parenteral) (Parenteral Nutrition) 1,680 mls @ 70 mls/hr IV .Q24H [facility]; Protocol Stop: 09/13/24 20:59 Last Admin: 09/12/24 21:00 Dose: 70 mls/hr Documented By: JUSTUS Melatonin (Melatonin 3 Mg Tablet) 6 mg PO BEDTIME PRN PRN Reason: Insomnia Last Admin: 09/12/24 23:44 Dose: 6 mg Documented By: JUSTUS Metoclopramide HCl (Metoclopramide Hcl 10 Mg/2 Ml Vial) 10 mg IVPUSH Q6H PRN PRN Reason: Nausea Morphine Sulfate (Morphine Sulfate 4 Mg/Ml Cartridge) 4 mg IVPUSH Q4H PRN; Protocol PRN Reason: Pain, Severe (Pain Scale 7-10) Multi-Ingred Medicated Throat [place] (Throat [place], Medicated 177 Ml Bottle) 1 spray MUCOUS MEM Q2H PRN PRN Reason: Sore Throat Ondansetron HCl (Ondansetron Hcl 4 Mg/2 Ml Vial) 4 mg IVPUSH Q8H PRN PRN Reason: Nausea and Vomiting Last Admin: 09/10/24 07:32 Dose: 4 mg Documented By: CHEY Pantoprazole Sodium (Pantoprazole Sodium 40 Mg/10 Ml Vial) 40 mg IVPUSH DAILY@0630 [facility] Last Admin: 09/13/24 05:52 Dose: 40 mg Documented By: JUSTUS Sodium Chloride (0.9 % Sodium Chloride Flush 3 Ml Syringe) 3 ml IVFLUSH QSHIFT [facility] Last Admin: 09/12/24 21:12 Dose: 3 ml Documented By: JUSTUS Trazodone HCl (Trazodone Hcl 50 Mg Tablet) 50 mg PO BEDTIME PRN PRN Reason: Insomnia Last Admin: 09/12/24 23:49 Dose: 50 mg Documented By: JUSTUS Labs 09/13/24 05:34 09/13/24 05:34 Labs: Laboratory Results - last 24 hr 09/12/24 09/12/24 09/12/24 11:49 18:05 23:52 MCV MCH MCHC RDW Plt Count MPV Absolute Nucleated RBC Nucleated RBC % (auto) Anion Gap Estim Creat Clear Calc Estimated GFR POC Glucose 142 H 120 H 123 H Random Glucose Calcium Phosphorus Magnesium Albumin 09/13/24 09/13/24 05:34 06:38 MCV 89.0 MCH 29.2 MCHC 32.8 RDW 13.7 Plt Count 302 MPV 10.2 Absolute Nucleated RBC 0.000 Nucleated RBC % (auto) 0.0 Anion Gap 10 L Estim Creat Clear Calc 83.5 Estimated GFR > 60 POC Glucose 147 H Random Glucose 153 H Calcium 8.4 Phosphorus 3.3 Magnesium 2.3 Albumin 2.5 L Procedures Date of Service Date of Service: 09/13/24 Progress Note: A&P Assessment and plan (1) Small bowel obstruction: Status: Acute Plan POD #3 s/p exploratory laparotomy and small-bowel resection with anastomosis for SBO. NGT was removed yesterday but unfortunately began vomiting this morning. Softly distended on exam. Discussed if vomits again, NGT reinsertion would be required. Cont OOB/ambulation as tolerated to promote GI function. Patient comfortable with plan and would very much like to avoid NGT again. Cont PPN. Time Spent With Patient Time: Total time managing care of this patient today ____ minutes. Quality Stroke Does the patient have a stroke diagnosis?: No VTE Prior VTE?: No VTE Risk Level:: Medical - moderate - high VTE Device Contraindication: N/A - Device Ordered VTE Drug Contraindication: Treatment Not Indicated
[2024-09-13 11:39] VITALS: BP 150/80; PULSE 70; TEMP 36.4; O2SAT 96
[2024-09-13 12:07] LABS: Glucose, Whole Blood 142 mg/dL (60-115)
[2024-09-13 15:12] VITALS: BP 168/86; PULSE 75; RESP 16; TEMP 36.6; O2SAT 97
--- NOTE | 2024-09-13 15:39 | MHC.CM.PN ---
PER ROUNDS PT IS NPO PT NOT MEDICALLY READY FOR DC
[2024-09-13 17:44] LABS: Glucose, Whole Blood 111 mg/dL (60-115)
[2024-09-13] MEDS: 0.9 % Sodium Chloride Flush 3 ML SYRINGE IVFLUSH ×2 (18:23→21:26)
[2024-09-13 19:35] VITALS: BP 160/8; PULSE 82; RESP 18; TEMP 36.7; O2SAT 94
--- NOTE | 2024-09-13 21:00 | PC.NURSE ---
Addendum entered by Bing Torres RN 09/14/24 02:55: In total at this time NGT has output 1000ml of thick green emesis, Patient reports feeling much better at this time. Original Note: pt vomited about 400cc, of green/brown emesis. Dr. Galaviz made aware. New order to place NGT back in, on low intermittent suction. CXR ordered and taken, NGT is in appropriate placement. Pt tolerated well, reports no pain at this time. Is resting quietly, with no apparent distress at this time, respirations even and nonlabored. Pt also titrated down to 1L NC at 96%
[2024-09-13] MEDS: Metoclopramide HCl 10 MG/2 ML VIAL IVPUSH (21:08)
[2024-09-13] MEDS: Parenteral Nutrition 1,680 ML 70 ML IV (21:24)
[2024-09-13] MEDS: traZODone HCL 50 MG TABLET PO (21:24)
[2024-09-13 23:11] VITALS: BP 162/64; PULSE 82; RESP 20; TEMP 36.4; O2SAT 96
[2024-09-13 23:34] LABS: Glucose, Whole Blood 123 mg/dL (60-115)
[2024-09-14] MEDS: metroNIDAZOLE/NS 500 MG/100 ML PIGGYBACK 100 MG IV ×3 (01:21→17:10)
[2024-09-14 02:44] VITALS: BP 140/60; PULSE 82; RESP 18; TEMP 36.2; O2SAT 93
[2024-09-14 05:20] LABS: Glucose, Whole Blood 133 mg/dL (60-115)
[2024-09-14 06:49] LABS: Albumin Level 2.7 g/dL (3.5-5.0); Anion Gap 11 (12-20); Blood Urea Nitrogen 23 mg/dL (9-16); Calcium 9.1 mg/dL (8.4-10.2); Carbon Dioxide 26 mmol/L (22-29); Chloride 107 mmol/L (96-108); Creatinine Clr Calc Pharmacy 81.9; Estimated Glomerular Filt Rate > 60; Glucose Random 122 mg/dL (60-115); Magnesium 2.3 mg/dL (1.6-2.6); Potassium 4.3 mmol/L (3.3-5.1); Sodium 140 mmol/L (135-145)
[2024-09-14 06:50] LABS: Hematocrit 36.3 % (37.0-47.0); Hemoglobin 12.2 g/dl (12.0-16.0); Mean Corpuscular HGB Conc 33.6 g/dl (31.0-35.0); Mean Corpuscular Hemoglobin 29.3 pg (27.0-33.0); Mean Corpuscular Volume 87.3 fL (80.0-98.0); Mean Platelet Volume 10.1 fL (9.4-12.3); Platelet Count 326 X10*3/uL (160-400); Red Blood Count 4.16 X10*6/uL (4.20-5.50); Red Cell Distribution Width 13.7 % (11.0-16.0)
--- NOTE | 2024-09-14 07:30 | P.PNGS_ITS ---
Subjective Subjective Date of Service: 09/14/24 Interval history: Patient developed increased nausea and vomiting during the night requiring replacement of NG tube. Feels much improved this morning, still bloated with no flatus or BM. Physical Exam 2 Vital Signs: Vital Signs: Last Vital Signs Temp 97.2 F 09/14/24 02:44 Pulse 82 09/14/24 02:44 Resp 18 09/14/24 02:44 BP 140/60 H 09/14/24 02:44 Pulse Ox 93 09/14/24 02:44 O2 Del Method Nasal Cannula 09/14/24 02:44 O2 Flow Rate 1 09/14/24 02:44 BMI result Body Mass Index 33.5 Const: General: comfortable, no acute distress and alert O rientation/consciousness: patient oriented x3 Resp: Effort & Inspection: normal respiratory effort GI: Inspection: Yes distended and Yes incision (clean, dry and intact) P alpation (GI): Soft to palpation, Tenderness to palpation present (GI) and no guarding Percussion: Yes tympanic to percussion Skin: General skin exam: no rashes or lesions noted Neuro: General: patient oriented x3 and moves all extremities Extrem: General: No edema Objective Data Active Medications Acetaminophen (Acetaminophen 325 Mg Tablet) 650 mg PO Q6H PRN PRN Reason: Pain, Mild 1-3,fever,headache Last Admin: 09/12/24 23:49 Dose: 650 mg Documented By: JUSTUS Amlodipine Besylate (Amlodipine Besylate 5 Mg Tablet) 5 mg PO DAILY [facility]; Protocol Last Admin: 09/13/24 09:08 Dose: 5 mg Documented By: LAYO Benzocaine (Throat Lozenge, Medicated Lozenge) 1 lozenge MUCOUS MEM Q2H PRN PRN Reason: Sore Throat Last Admin: 09/12/24 20:54 Dose: 1 lozenge Documented By: JUSTUS Carbamazepine (Carbamazepine 200 Mg Tablet) 200 mg PO BID [facility] Last Admin: 09/13/24 21:24 Dose: 200 mg Documented By: JUSTUS Ceftriaxone Sodium (Ceftriaxone Sodium 1 Gm Vial) 1 gm IVPUSH Q24H [facility] Last Admin: 09/13/24 09:09 Dose: 1 gm Documented By: LAYO Heparin Sodium (Porcine) (Heparin Sodium,Porcine 5,000 Unit/Ml Vial) 5,000 unit SUBCUT Q12H [facility] Last Admin: 09/13/24 21:24 Dose: 5,000 unit Documented By: JUSTUS Metronidazole (Flagyl) 500 mg in 100 mls @ 100 mls/hr IV Q8H [facility] Last Infusion: 09/14/24 02:18 Dose: Infused Documented By: JUSTUS Nutrition (Parenteral) (Parenteral Nutrition) 1,680 mls @ 70 mls/hr IV .Q24H [facility]; Protocol Stop: 09/14/24 20:59 Last Infusion: 09/14/24 02:18 Dose: 70 mls/hr Documented By: JUSTUS Melatonin (Melatonin 3 Mg Tablet) 6 mg PO BEDTIME PRN PRN Reason: Insomnia Last Admin: 09/12/24 23:44 Dose: 6 mg Documented By: JUSTUS Metoclopramide HCl (Metoclopramide Hcl 10 Mg/2 Ml Vial) 10 mg IVPUSH Q6H PRN PRN Reason: Nausea Last Admin: 09/13/24 21:08 Dose: 10 mg Documented By: JUSTUS Morphine Sulfate (Morphine Sulfate 4 Mg/Ml Cartridge) 4 mg IVPUSH Q4H PRN; Protocol PRN Reason: Pain, Severe (Pain Scale 7-10) Multi-Ingred Medicated Throat [place] (Throat [place], Medicated 177 Ml Bottle) 1 spray MUCOUS MEM Q2H PRN PRN Reason: Sore Throat Ondansetron HCl (Ondansetron Hcl 4 Mg/2 Ml Vial) 4 mg IVPUSH Q8H PRN PRN Reason: Nausea and Vomiting Last Admin: 09/10/24 07:32 Dose: 4 mg Documented By: LUCCARLEY Sodium Chloride (0.9 % Sodium Chloride Flush 3 Ml Syringe) 3 ml IVFLUSH QSHIFT [facility] Last Admin: 09/13/24 21:26 Dose: 3 ml Documented By: JUSTUS Trazodone HCl (Trazodone Hcl 50 Mg Tablet) 50 mg PO BEDTIME PRN PRN Reason: Insomnia Last Admin: 09/13/24 21:24 Dose: 50 mg Documented By: JUSTUS Labs 09/14/24 05:35 09/14/24 05:35 Labs: Laboratory Results - last 24 hr 03/06/2809/13/24 09/13/24 12:03 17:39 23:16 MCV MCH MCHC RDW Plt Count MPV Absolute Nucleated RBC Nucleated RBC % (auto) Anion Gap Estim Creat Clear Calc Estimated GFR POC Glucose 142 H 111 123 H Random Glucose Calcium Phosphorus Magnesium Albumin 09/14/24 09/14/24 05:16 05:35 MCV 87.3 MCH 29.3 MCHC 33.6 RDW 13.7 Plt Count 326 MPV 10.1 Absolute Nucleated RBC 0.000 Nucleated RBC % (auto) 0.0 Anion Gap 11 L Estim Creat Clear Calc 81.9 Estimated GFR > 60 POC Glucose 133 H Random Glucose 122 H Calcium 9.1 D Phosphorus 4.0 Magnesium 2.3 Albumin 2.7 L Procedures Date of Service Date of Service: 09/14/24 Progress Note: A&P Assessment and plan (1) Small bowel obstruction: Status: Acute Plan POD #4 s/p exploratory laparotomy and small-bowel resection with anastomosis for SBO. NGT needed to be replaced because of increased nausea and vomiting. She does feel improved today but still awaiting return of bowel function. Continue PPN. Encouraged out of bed and ambulation. Time Spent With Patient Time: Total time managing care of this patient today ____ minutes. Quality Stroke Does the patient have a stroke diagnosis?: No VTE Prior VTE?: No VTE Risk Level:: Medical - moderate - high VTE Device Contraindication: N/A - Device Ordered VTE Drug Contraindication: Treatment Not Indicated
[2024-09-14 07:46] VITALS: BP 142/70; PULSE 82; RESP 18; TEMP 36; O2SAT 92
[2024-09-14] MEDS: amLODIPine Besylate 5 MG TABLET PO (07:58)
[2024-09-14] MEDS: carBAMazepine 200 MG TABLET PO ×2 (07:58→21:25)
[2024-09-14] MEDS: 0.9 % Sodium Chloride Flush 3 ML SYRINGE IVFLUSH (08:08)
--- NOTE | 2024-09-14 09:00 | HO.PM.IMPN ---
Subjective Subjective Date of Service: 09/14/24 Interval History: s/p bowel resection for sbo Had N/V last night and NGT reinsteted and feels better this morning Physical Exam Vital Signs: Vital Signs: Last Vital Signs Temp 96.8 F 09/14/24 07:46 Pulse 82 09/14/24 07:46 Resp 18 09/14/24 07:46 BP 142/70 H 09/14/24 07:46 Pulse Ox 92 09/14/24 07:46 O2 Del Method Nasal Cannula 09/14/24 07:46 O2 Flow Rate 1 09/14/24 07:46 BMI result Body Mass Index 33.5 Const: Other: General: AO X 3, no acute distress Resp: CTA bilateral CVS: S1,S2,RRR GI: No BS, mildly tender Skin: No rash Neuro: motor grossly intact Psych: appropriate affect Objective Data Active Medications Acetaminophen (Acetaminophen 325 Mg Tablet) 650 mg PO Q6H PRN PRN Reason: Pain, Mild 1-3,fever,headache Last Admin: 09/12/24 23:49 Dose: 650 mg Documented By: JUSTUS Amlodipine Besylate (Amlodipine Besylate 5 Mg Tablet) 5 mg PO DAILY [facility]; Protocol Last Admin: 09/14/24 07:58 Dose: 5 mg Documented By: CASANDRA Benzocaine (Throat Lozenge, Medicated Lozenge) 1 lozenge MUCOUS MEM Q2H PRN PRN Reason: Sore Throat Last Admin: 09/12/24 20:54 Dose: 1 lozenge Documented By: JUSTUS Carbamazepine (Carbamazepine 200 Mg Tablet) 200 mg PO BID [facility] Last Admin: 09/14/24 07:58 Dose: 200 mg Documented By: CASANDRA Ceftriaxone Sodium (Ceftriaxone Sodium 1 Gm Vial) 1 gm IVPUSH Q24H [facility] Last Admin: 09/13/24 09:09 Dose: 1 gm Documented By: LAYO Heparin Sodium (Porcine) (Heparin Sodium,Porcine 5,000 Unit/Ml Vial) 5,000 unit SUBCUT Q12H [facility] Last Admin: 09/13/24 21:24 Dose: 5,000 unit Documented By: JUSTUS Metronidazole (Flagyl) 500 mg in 100 mls @ 100 mls/hr IV Q8H [facility] Last Infusion: 09/14/24 02:18 Dose: Infused Documented By: JUSTUS Nutrition (Parenteral) (Parenteral Nutrition) 1,680 mls @ 70 mls/hr IV .Q24H [facility]; Protocol Stop: 09/14/24 20:59 Last Infusion: 09/14/24 02:18 Dose: 70 mls/hr Documented By: JUSTUS Nutrition (Parenteral) (Parenteral Nutrition) 1,680 mls @ 70 mls/hr IV .Q24H [facility]; Protocol Stop: 09/15/24 20:59 Melatonin (Melatonin 3 Mg Tablet) 6 mg PO BEDTIME PRN PRN Reason: Insomnia Last Admin: 09/12/24 23:44 Dose: 6 mg Documented By: JUSTUS Metoclopramide HCl (Metoclopramide Hcl 10 Mg/2 Ml Vial) 10 mg IVPUSH Q6H PRN PRN Reason: Nausea Last Admin: 09/13/24 21:08 Dose: 10 mg Documented By: JUSTUS Morphine Sulfate (Morphine Sulfate 4 Mg/Ml Cartridge) 4 mg IVPUSH Q4H PRN; Protocol PRN Reason: Pain, Severe (Pain Scale 7-10) Multi-Ingred Medicated Throat [place] (Throat [place], Medicated 177 Ml Bottle) 1 spray MUCOUS MEM Q2H PRN PRN Reason: Sore Throat Ondansetron HCl (Ondansetron Hcl 4 Mg/2 Ml Vial) 4 mg IVPUSH Q8H PRN PRN Reason: Nausea and Vomiting Last Admin: 09/10/24 07:32 Dose: 4 mg Documented By: CHEY Sodium Chloride (0.9 % Sodium Chloride Flush 3 Ml Syringe) 3 ml IVFLUSH [facility] Last Admin: 09/14/24 08:08 Dose: 3 ml Documented By: CASANDRA Trazodone HCl (Trazodone Hcl 50 Mg Tablet) 50 mg PO BEDTIME PRN PRN Reason: Insomnia Last Admin: 09/13/24 21:24 Dose: 50 mg Documented By: JUSTUS Labs 09/14/24 05:35 09/14/24 05:35 Labs: Laboratory Results - last 24 hr 09/13/24 09/13/24 09/13/24 12:03 17:39 23:16 MCV MCH MCHC RDW Plt Count MPV Absolute Nucleated RBC Nucleated RBC % (auto) Anion Gap Estim Creat Clear Calc Estimated GFR POC Glucose 142 H 111 123 H Random Glucose Calcium Phosphorus Magnesium Albumin 09/14/24 09/14/24 05:16 05:35 MCV 87.3 MCH 29.3 MCHC 33.6 RDW 13.7 Plt Count 326 MPV 10.1 Absolute Nucleated RBC 0.000 Nucleated RBC % (auto) 0.0 Anion Gap 11 L Estim Creat Clear Calc 81.9 Estimated GFR > 60 POC Glucose 133 H Random Glucose 122 H Calcium 9.1 D Phosphorus 4.0 Magnesium 2.3 Albumin 2.7 L Assessment and Plan (1) AGUILAR (acute kidney injury): Status: Acute (2) Intractable abdominal pain: Status: Acute (3) Small bowel obstruction: Status: Acute Plan 84-year-old female with a PMH significant for?HLD, HTN, peripheral neuropathy, hx of endometrial cancer, hx of hysterectomy, and chronic lower back pain secondary to intermittent spinal claudication who presents to the ED with?abdominal pain, nausea, vomiting and diarrhea and admitted for sbo SBO KUB 09/08, mild constipation and no acute process KUB 09/10 showed no interval distal progression of enteric contrast in the small bowel compared to prior consistent with a high-grade small-bowel obstruction S/p Ex lap, bowel resection on 09/10 NGT removed 09/12, and reinserted the same night d/t N/V NPO continue PPN, started 09/11. Monitor electrolytes and divalents AGUILAR, possible pre renal vs ATN from contrast, resolved. Acute hypOkalemia, resolved with IV replacement Elevated troponin but flat no complain of chest pain, EKG with no acute ischemia, likely demand ischemia ,no further workup. Leukocytosis, WBC trending down, likely reactive and possible colitis, resolved continue empiric Ceftriaxone and Flagyl for 7 days Follow CBC Abnormal CT findings CTA of abdomen/pelvis found evidence of possible IBD and liver cirrhosis HLD hold statin, aspirin HTN lisinopril and, hydrochlorothiazide held d/t renal failure Norvasc if going if needed Chronic lower back pain/lumbar spondylosis Continue carbamazepine DNR/DNI, DVT Prophylaxis: Pneumatic compression, heparin Need for inpt: Active SBO with NGT, IVF, need for surgery Quality Stroke Does the patient have a stroke diagnosis?: No VTE Prior VTE?: No VTE Risk Level:: Medical - moderate - high VTE Device Contraindication: N/A - Device Ordered VTE Drug Contraindication: Treatment Not Indicated
--- NOTE | 2024-09-14 09:32 | MHC.CLN ---
F/U REMAINS NPO NGT RE-INSERTED 09/12 R/T N/V REVIEWED LABS COMMUNICATED WITH PHARMACY CONTINUE PPN AT 70ML/HOUR WITH 65G LIPIDS TO PROVIDE 1507 TOTAL KCALS (26KCALS/KG IBW), 71G PROTEIN (1.25G/KG IBW), 168G DEXTROSE REPLETE LYTES NEEDED
[2024-09-14] MEDS: Heparin Sodium,Porcine 5,000 UNIT/ML VIAL 5000 UNIT SUBCUT ×2 (10:15→21:26)
[2024-09-14] MEDS: cefTRIAXone sodium 1 GM VIAL IVPUSH (10:15)
[2024-09-14 12:00] VITALS: BP 146/70; PULSE 75; RESP 15; TEMP 36.6; O2SAT 94
[2024-09-14 12:16] LABS: Glucose, Whole Blood 117 mg/dL (60-115)
[2024-09-14 14:54] VITALS: BP 151/83; PULSE 80; RESP 18; TEMP 36.3; O2SAT 93
[2024-09-14 18:36] LABS: Glucose, Whole Blood 113 mg/dL (60-115)
[2024-09-14 19:25] VITALS: BP 161/75; PULSE 84; RESP 20; TEMP 36.6; O2SAT 96
[2024-09-14] MEDS: Parenteral Nutrition 1,680 ML 70 ML IV (21:38)
[2024-09-14] MEDS: Throat Lozenge, Medicated LOZENGE 1 LOZENGE MUCOUS MEM (21:57)
[2024-09-14 23:11] VITALS: BP 165/78; PULSE 82; RESP 20; TEMP 36.4; O2SAT 95
[2024-09-15] VITALS (8 sets, daily range): BP systolic 152–179; BP diastolic 72–82; PULSE 76–82; RESP 18–20; TEMP 36.1–37; O2SAT 92–97
[2024-09-15 00:15] LABS: Glucose, Whole Blood 126 mg/dL (60-115)
[2024-09-15] MEDS: metroNIDAZOLE/NS 500 MG/100 ML PIGGYBACK 100 MG IV ×3 (02:28→17:10)
--- NOTE | 2024-09-15 05:13 | PC.NURSE ---
NG tube canister with 900 mls green output, canister changed at 0500. Patient tolerating well.
[2024-09-15 06:03] LABS: Glucose, Whole Blood 136 mg/dL (60-115)
[2024-09-15 06:05] LABS: Albumin Level 2.8 g/dL (3.5-5.0); Magnesium 2.3 mg/dL (1.6-2.6)
[2024-09-15 07:50] LABS: Alanine Aminotransferase 35 U/L (0-31); Anion Gap 14 (12-20); Aspartate Amino Transferase 55 U/L (5-31); Bilirubin Total 0.2 mg/dL (0.0-1.0); Blood Urea Nitrogen 24 mg/dL (9-16); Calcium 9.1 mg/dL (8.4-10.2); Carbon Dioxide 22 mmol/L (22-29); Chloride 108 mmol/L (96-108); Creatinine Clr Calc Pharmacy 81.9; Estimated Glomerular Filt Rate > 60; Glucose Random 132 mg/dL (60-115); Potassium 4.5 mmol/L (3.3-5.1); Sodium 139 mmol/L (135-145); Total Protein 5.8 g/dL (6.5-8.0)
[2024-09-15 08:13] LABS: Alkaline Phosphatase 121 U/L (39-117)
--- NOTE | 2024-09-15 08:19 | P.PNGS_ITS ---
Subjective Subjective Date of Service: 09/15/24 Interval history: NG tube remains in place. No further nausea or vomiting. Denies passing flatus or bowel movement. Physical Exam 2 Vital Signs: Vital Signs: Last Vital Signs Temp 96.9 F 09/15/24 03:17 Pulse 82 09/15/24 03:17 Resp 20 09/15/24 03:17 BP 158/75 H 09/15/24 03:17 Pulse Ox 97 09/15/24 03:17 O2 Del Method Nasal Cannula 09/15/24 03:17 O2 Flow Rate 2 09/15/24 03:17 BMI result Body Mass Index 33.5 Const: General: comfortable, no acute distress and alert O rientation/consciousness: patient oriented x3 Resp: Effort & Inspection: normal respiratory effort GI: Inspection: Yes distended and Yes incision (clean, dry and intact) P alpation (GI): Soft to palpation, Tenderness to palpation present (GI) and no guarding Percussion: Yes tympanic to percussion Skin: General skin exam: no rashes or lesions noted Neuro: General: patient oriented x3 and moves all extremities Extrem: General: No edema Objective Data Active Medications Acetaminophen (Acetaminophen 325 Mg Tablet) 650 mg PO Q6H PRN PRN Reason: Pain, Mild 1-3,fever,headache Last Admin: 09/12/24 23:49 Dose: 650 mg Documented By: JUSTUS Amlodipine Besylate (Amlodipine Besylate 5 Mg Tablet) 5 mg PO DAILY [facility]; Protocol Last Admin: 09/14/24 07:58 Dose: 5 mg Documented By: CASANDRA Benzocaine (Throat Lozenge, Medicated Lozenge) 1 lozenge MUCOUS MEM Q2H PRN PRN Reason: Sore Throat Last Admin: 09/14/24 21:57 Dose: 1 lozenge Documented By: MIGUEL Carbamazepine (Carbamazepine 200 Mg Tablet) 200 mg PO BID [facility] Last Admin: 09/14/24 21:25 Dose: 200 mg Documented By: MIGUEL Ceftriaxone Sodium (Ceftriaxone Sodium 1 Gm Vial) 1 gm IVPUSH Q24H [facility] Last Admin: 09/14/24 10:15 Dose: 1 gm Documented By: CASANDRA Heparin Sodium (Porcine) (Heparin Sodium,Porcine 5,000 Unit/Ml Vial) 5,000 unit SUBCUT Q12H [facility] Last Admin: 09/14/24 21:26 Dose: 5,000 unit Documented By: MIGUEL Metronidazole (Flagyl) 500 mg in 100 mls @ 100 mls/hr IV Q8H [facility] Last Infusion: 09/15/24 03:28 Dose: Infused Documented By: MIGUEL Nutrition (Parenteral) (Parenteral Nutrition) 1,680 mls @ 70 mls/hr IV .Q24H [facility]; Protocol Stop: 09/15/24 20:59 Last Admin: 09/14/24 21:38 Dose: 70 mls/hr Documented By: MIGUEL Melatonin (Melatonin 3 Mg Tablet) 6 mg PO BEDTIME PRN PRN Reason: Insomnia Last Admin: 09/12/24 23:44 Dose: 6 mg Documented By: JUSTUS Metoclopramide HCl (Metoclopramide Hcl 10 Mg/2 Ml Vial) 10 mg IVPUSH Q6H PRN PRN Reason: Nausea Last Admin: 09/13/24 21:08 Dose: 10 mg Documented By: JUSTUS Morphine Sulfate (Morphine Sulfate 4 Mg/Ml Cartridge) 4 mg IVPUSH Q4H PRN; Protocol PRN Reason: Pain, Severe (Pain Scale 7-10) Multi-Ingred Medicated Throat [place] (Throat [place], Medicated 177 Ml Bottle) 1 spray MUCOUS MEM Q2H PRN PRN Reason: Sore Throat Ondansetron HCl (Ondansetron Hcl 4 Mg/2 Ml Vial) 4 mg IVPUSH Q8H PRN PRN Reason: Nausea and Vomiting Last Admin: 09/10/24 07:32 Dose: 4 mg Documented By: LUCCARLEY Sodium Chloride (0.9 % Sodium Chloride Flush 3 Ml Syringe) [facility] Last Admin: 09/15/24 07:16 Dose: Not Given Documented By: RONAL Non-Admin Reason: IV Running Trazodone HCl (Trazodone Hcl 50 Mg Tablet) 50 mg PO BEDTIME PRN PRN Reason: Insomnia Last Admin: 09/13/24 21:24 Dose: 50 mg Documented By: JUSTUS Labs 09/14/24 05:35 09/15/24 05:12 Labs: Laboratory Results - last 24 hr 09/14/24 09/14/24 09/14/24 12:12 18:33 23:14 Anion Gap Estim Creat Clear Calc Estimated GFR POC Glucose 117 H 113 126 H Random Glucose Calcium Phosphorus Magnesium Total Bilirubin AST ALT Alkaline Phosphatase Total Protein Albumin 09/15/24 09/15/24 05:12 05:59 Anion Gap 14 Estim Creat Clear Calc 81.9 Estimated GFR > 60 POC Glucose 136 H Random Glucose 132 H Calcium 9.1 Phosphorus 4.0 Magnesium 2.3 Total Bilirubin 0.2 AST 55 H ALT 35 H Alkaline Phosphatase 121 H Total Protein 5.8 L Albumin 2.8 L Procedures Date of Service Date of Service: 09/15/24 Progress Note: A&P Assessment and plan (1) Small bowel obstruction: Status: Acute Plan POD #5 s/p exploratory laparotomy and small-bowel resection with anastomosis for SBO. The patient was slow to returned to normal GI function. Needs continued NG tube decompression, peripheral nutrition until GI function returns. Encouraged ambulation, incentive spirometry. Time Spent With Patient Time: Total time managing care of this patient today ____ minutes. Quality Stroke Does the patient have a stroke diagnosis?: No VTE Prior VTE?: No VTE Risk Level:: Medical - moderate - high VTE Device Contraindication: N/A - Device Ordered VTE Drug Contraindication: Treatment Not Indicated
[2024-09-15 08:32] LABS: Anion Gap 12 (12-20); Blood Urea Nitrogen 25 mg/dL (9-16); Calcium 9.2 mg/dL (8.4-10.2); Carbon Dioxide 26 mmol/L (22-29); Chloride 107 mmol/L (96-108); Creatinine Clr Calc Pharmacy 81.9; Estimated Glomerular Filt Rate > 60; Glucose Random 166 mg/dL (60-115); Potassium 4.7 mmol/L (3.3-5.1); Sodium 140 mmol/L (135-145)
--- NOTE | 2024-09-15 09:03 | P.PNIM_ITS ---
Subjective Subjective Date of Service: 09/15/24 Interval History: s/p bowel resection for sbo NGT remains in place, no abd pain, no bm or flatus Physical Exam 2 Vital Signs: Vital Signs: Last Vital Signs Temp 96.9 F 09/15/24 08:38 Pulse 76 09/15/24 08:38 Resp 18 09/15/24 08:38 BP 179/80 H 09/15/24 08:38 Pulse Ox 92 09/15/24 08:38 O2 Del Method Room Air 09/15/24 08:38 O2 Flow Rate 2 09/15/24 03:17 BMI result Body Mass Index 33.5 Const: Other: General: AO X 3, no acute distress Resp: CTA bilateral CVS: S1,S2,RRR GI: No BS, mildly tender Skin: No rash Neuro: motor grossly intact Psych: appropriate affect Objective Data Active Medications Acetaminophen (Acetaminophen 325 Mg Tablet) 650 mg PO Q6H PRN PRN Reason: Pain, Mild 1-3,fever,headache Last Admin: 09/12/24 23:49 Dose: 650 mg Documented By: JUSTUS Amlodipine Besylate (Amlodipine Besylate 5 Mg Tablet) 5 mg PO DAILY [facility]; Protocol Last Admin: 09/14/24 07:58 Dose: 5 mg Documented By: CASANDRA Benzocaine (Throat Lozenge, Medicated Lozenge) 1 lozenge MUCOUS MEM Q2H PRN PRN Reason: Sore Throat Last Admin: 09/14/24 21:57 Dose: 1 lozenge Documented By: MIGUEL Carbamazepine (Carbamazepine 200 Mg Tablet) 200 mg PO BID [facility] Last Admin: 09/14/24 21:25 Dose: 200 mg Documented By: MIGUEL Ceftriaxone Sodium (Ceftriaxone Sodium 1 Gm Vial) 1 gm IVPUSH Q24H [facility] Last Admin: 09/14/24 10:15 Dose: 1 gm Documented By: CASANDRA Heparin Sodium (Porcine) (Heparin Sodium,Porcine 5,000 Unit/Ml Vial) 5,000 unit SUBCUT Q12H [facility] Last Admin: 09/14/24 21:26 Dose: 5,000 unit Documented By: MIGUEL Metronidazole (Flagyl) 500 mg in 100 mls @ 100 mls/hr IV Q8H [facility] Last Infusion: 09/15/24 03:28 Dose: Infused Documented By: MIGUEL Nutrition (Parenteral) (Parenteral Nutrition) 1,680 mls @ 70 mls/hr IV .Q24H [facility]; Protocol Stop: 09/15/24 20:59 Last Admin: 09/14/24 21:38 Dose: 70 mls/hr Documented By: PETROSASY Nutrition (Parenteral) (Parenteral Nutrition) 1,680 mls @ 70 mls/hr IV .Q24H [facility]; Protocol Stop: 09/16/24 20:59 Melatonin (Melatonin 3 Mg Tablet) 6 mg PO BEDTIME PRN PRN Reason: Insomnia Last Admin: 09/12/24 23:44 Dose: 6 mg Documented By: JUSTUS Metoclopramide HCl (Metoclopramide Hcl 10 Mg/2 Ml Vial) 10 mg IVPUSH Q6H PRN PRN Reason: Nausea Last Admin: 09/13/24 21:08 Dose: 10 mg Documented By: JUSTUS Morphine Sulfate (Morphine Sulfate 4 Mg/Ml Cartridge) 4 mg IVPUSH Q4H PRN; Protocol PRN Reason: Pain, Severe (Pain Scale 7-10) Multi-Ingred Medicated Throat [place] (Throat [place], Medicated 177 Ml Bottle) 1 spray MUCOUS MEM Q2H PRN PRN Reason: Sore Throat Ondansetron HCl (Ondansetron Hcl 4 Mg/2 Ml Vial) 4 mg IVPUSH Q8H PRN PRN Reason: Nausea and Vomiting Last Admin: 09/10/24 07:32 Dose: 4 mg Documented By: CHEY Sodium Chloride (0.9 % Sodium Chloride Flush 3 Ml Syringe) 3 ml IVFLUSH [facility] Last Admin: 09/15/24 07:16 Dose: Not Given Documented By: RONAL Non-Admin Reason: IV Running Trazodone HCl (Trazodone Hcl 50 Mg Tablet) 50 mg PO BEDTIME PRN PRN Reason: Insomnia Last Admin: 09/13/24 21:24 Dose: 50 mg Documented By: JUSTUS Labs 09/14/24 05:35 09/15/24 08:03 Labs: Laboratory Results - last 24 hr 09/14/24 09/14/24 09/14/24 12:12 18:33 23:14 Anion Gap Estim Creat Clear Calc Estimated GFR POC Glucose 117 H 113 126 H Random Glucose Calcium Phosphorus Magnesium Total Bilirubin AST ALT Alkaline Phosphatase Total Protein Albumin 09/15/24 09/15/24 09/15/24 05:12 05:59 08:03 Anion Gap 14 12 Estim Creat Clear Calc 81.9 81.9 Estimated GFR > 60 > 60 POC Glucose 136 H Random Glucose 132 H 166 H Calcium 9.1 9.2 Phosphorus 4.0 Magnesium 2.3 Total Bilirubin 0.2 AST 55 H ALT 35 H Alkaline Phosphatase 121 H Total Protein 5.8 L Albumin 2.8 L Assessment and Plan (1) AGUILAR (acute kidney injury): Status: Acute (2) Intractable abdominal pain: Status: Acute (3) Small bowel obstruction: Status: Acute Plan 84-year-old female with a PMH significant for?HLD, HTN, peripheral neuropathy, hx of endometrial cancer, hx of hysterectomy, and chronic lower back pain secondary to intermittent spinal claudication who presents to the ED with?abdominal pain, nausea, vomiting and diarrhea and admitted for sbo SBO s/p surgery, now likely ileus KUB 09/08, mild constipation and no acute process KUB 09/10 showed no interval distal progression of enteric contrast in the small bowel compared to prior consistent with a high-grade small-bowel obstruction S/p Ex lap, bowel resection on 09/10 NGT removed 09/12, and reinserted the same night d/t N/V NPO until bowel function returns , consider erythromycin as pro motility agent continue PPN, started 09/11. Monitor electrolytes and divalents GAUILAR, possible pre renal vs ATN from contrast, resolved. Acute hypOkalemia, resolved with IV replacement Elevated troponin but flat no complain of chest pain, EKG with no acute ischemia, likely demand ischemia ,no further workup. Leukocytosis, WBC trending down, likely reactive and possible colitis, resolved continue empiric Ceftriaxone and Flagyl for 7 days Follow CBC Abnormal CT findings CTA of abdomen/pelvis found evidence of possible IBD and liver cirrhosis HLD hold statin, aspirin HTN lisinopril and, hydrochlorothiazide held d/t renal failure Norvasc if going if needed.. IV meds Chronic lower back pain/lumbar spondylosis Continue carbamazepine DNR/DNI, DVT Prophylaxis: Pneumatic compression, heparin Need for inpt: Active SBO with NGT, IVF, need for surgery Quality Stroke Does the patient have a stroke diagnosis?: No VTE Prior VTE?: No VTE Risk Level:: Medical - moderate - high VTE Device Contraindication: N/A - Device Ordered VTE Drug Contraindication: Treatment Not Indicated
[2024-09-15] MEDS: carBAMazepine 200 MG TABLET PO ×2 (09:20→20:13)
[2024-09-15] MEDS: Heparin Sodium,Porcine 5,000 UNIT/ML VIAL 5000 UNIT SUBCUT ×2 (09:20→20:12)
[2024-09-15] MEDS: amLODIPine Besylate 5 MG TABLET PO (09:20)
--- NOTE | 2024-09-15 10:11 | MHC.CLN ---
F/U REMAINS NPO WITH NGT. REVIEWED LABS. COMMUNICATED WITH PHARMACY. CONTINUE PPN AT MAX GOAL: PPN AT 70ML/HOUR WITH 65G LIPIDS TO PROVIDE 1507 TOTAL KCALS (26KCALS/KG IBW), 71G PROTEIN (1.25G/KG IBW), 168G DEXTROSE REPLETE LYTES NEEDED. CONTINUE TO FOLLOW FOR PPN TOLERANCE AND DIET ADVANCEMENT.
[2024-09-15] MEDS: cefTRIAXone sodium 1 GM VIAL IVPUSH (10:36)
[2024-09-15 12:29] LABS: Glucose, Whole Blood 119 mg/dL (60-115)
--- NOTE | 2024-09-15 15:32 | MHC.CM.PN ---
per rounds pt willbe here over the weekend
[2024-09-15] MEDS: 0.9 % Sodium Chloride Flush 3 ML SYRINGE IVFLUSH (17:01)
[2024-09-15 18:13] LABS: Glucose, Whole Blood 93 mg/dL (60-115)
[2024-09-15] MEDS: Parenteral Nutrition 1,680 ML 70 ML IV (20:12)
[2024-09-15 23:33] LABS: Glucose, Whole Blood 131 mg/dL (60-115)
[2024-09-16] MEDS: metroNIDAZOLE/NS 500 MG/100 ML PIGGYBACK 100 MG IV (01:27)
[2024-09-16] MEDS: 0.9 % Sodium Chloride Flush 3 ML SYRINGE IVFLUSH ×2 (01:32→20:23)
[2024-09-16 03:54] VITALS: BP 149/69; PULSE 72; RESP 18; TEMP 36; O2SAT 96
[2024-09-16 06:18] LABS: Albumin Level 2.9 g/dL (3.5-5.0); Anion Gap 12 (12-20); Blood Urea Nitrogen 26 mg/dL (9-16); Carbon Dioxide 24 mmol/L (22-29); Chloride 108 mmol/L (96-108); Creatinine Clr Calc Pharmacy 80.5; Estimated Glomerular Filt Rate > 60; Glucose Random 133 mg/dL (60-115); Magnesium 2.3 mg/dL (1.6-2.6); Phosphorus 3.6 mg/dL (2.7-4.5); Potassium 4.2 mmol/L (3.3-5.1); Sodium 140 mmol/L (135-145)
[2024-09-16 06:42] LABS: Glucose, Whole Blood 126 mg/dL (60-115)
[2024-09-16 07:36] VITALS: BP 154/72; PULSE 78; RESP 18; TEMP 36.5; O2SAT 92
--- NOTE | 2024-09-16 08:43 | HO.PM.IMPN ---
Subjective Subjective Date of Service: 09/16/24 Interval History: s/p bowel resection for sbo NGT remains in place with moderate output reporting some flatus pain is minimal Physical Exam Vital Signs: Vital Signs: Last Vital Signs Temp 97.7 F 09/16/24 07:36 Pulse 78 09/16/24 07:36 Resp 18 09/16/24 07:36 BP 154/72 H 09/16/24 07:36 Pulse Ox 92 09/16/24 07:36 O2 Del Method Room Air 09/16/24 07:36 O2 Flow Rate 2 09/16/24 03:54 BMI result Body Mass Index 33.5 Const: Other: General: AO X 3, no acute distress HEENT: NGT in place bile output Resp: CTA bilateral CVS: S1,S2,RRR GI: No BS, mildly tender Skin: No rash Neuro: motor grossly intact Psych: appropriate affect Objective Data Active Medications Acetaminophen (Acetaminophen 325 Mg Tablet) 650 mg PO Q6H PRN PRN Reason: Pain, Mild 1-3,fever,headache Last Admin: 09/12/24 23:49 Dose: 650 mg Documented By: JUSTUS Amlodipine Besylate (Amlodipine Besylate 5 Mg Tablet) 5 mg PO DAILY [facility]; Protocol Last Admin: 09/15/24 09:20 Dose: 5 mg Documented By: RONAL Benzocaine (Throat Lozenge, Medicated Lozenge) 1 lozenge MUCOUS MEM Q2H PRN PRN Reason: Sore Throat Last Admin: 09/14/24 21:57 Dose: 1 lozenge Documented By: MIGUEL Carbamazepine (Carbamazepine 200 Mg Tablet) 200 mg PO BID [facility] Last Admin: 09/15/24 20:13 Dose: 200 mg Documented By: CAMILA Ceftriaxone Sodium (Ceftriaxone Sodium 1 Gm Vial) 1 gm IVPUSH Q24H [facility] Last Admin: 09/15/24 10:36 Dose: 1 gm Documented By: RONAL Heparin Sodium (Porcine) (Heparin Sodium,Porcine 5,000 Unit/Ml Vial) 5,000 unit SUBCUT Q12H [facility] Last Admin: 09/15/24 20:12 Dose: 5,000 unit Documented By: CAMILA Metronidazole (Flagyl) 500 mg in 100 mls @ 100 mls/hr IV Q8H [facility] Last Infusion: 09/16/24 02:30 Dose: Infused Documented By: CAMILA Nutrition (Parenteral) (Parenteral Nutrition) 1,680 mls @ 70 mls/hr IV .Q24H [facility]; Protocol Stop: 09/16/24 20:59 Last Admin: 09/15/24 20:12 Dose: 70 mls/hr Documented By: CAMILA Melatonin (Melatonin 3 Mg Tablet) 6 mg PO BEDTIME PRN PRN Reason: Insomnia Last Admin: 09/12/24 23:44 Dose: 6 mg Documented By: JUSTUS Metoclopramide HCl (Metoclopramide Hcl 10 Mg/2 Ml Vial) 10 mg IVPUSH Q6H PRN PRN Reason: Nausea Last Admin: 09/13/24 21:08 Dose: 10 mg Documented By: JUSTUS Multi-Ingred Medicated Throat [place] (Throat [place], Medicated 177 Ml Bottle) 1 spray MUCOUS MEM Q2H PRN PRN Reason: Sore Throat Ondansetron HCl (Ondansetron Hcl 4 Mg/2 Ml Vial) 4 mg IVPUSH Q8H PRN PRN Reason: Nausea and Vomiting Last Admin: 09/10/24 07:32 Dose: 4 mg Documented By: LUCCARLEY Sodium Chloride (0.9 % Sodium Chloride Flush 3 Ml Syringe) 3 ml IVFLUSH [facility] Last Admin: 09/16/24 01:32 Dose: 3 ml Documented By: CAMILA Trazodone HCl (Trazodone Hcl 50 Mg Tablet) 50 mg PO BEDTIME PRN PRN Reason: Insomnia Last Admin: 09/13/24 21:24 Dose: 50 mg Documented By: JUSTUS Labs 09/14/24 05:35 09/16/24 05:42 Labs: Laboratory Results - last 24 hr 09/15/24 09/15/24 09/15/24 12:25 18:09 23:20 Anion Gap Estim Creat Clear Calc Estimated GFR POC Glucose 119 H 93 131 H Random Glucose Calcium Phosphorus Magnesium Albumin 09/16/24 09/16/24 05:42 05:57 Anion Gap 12 Estim Creat Clear Calc 80.5 Estimated GFR > 60 POC Glucose 126 H Random Glucose 133 H Calcium 9.0 Phosphorus 3.6 Magnesium 2.3 Albumin 2.9 L Assessment and Plan (1) AGUILAR (acute kidney injury): Status: Acute (2) Intractable abdominal pain: Status: Acute (3) Small bowel obstruction: Status: Acute Plan 84-year-old female with a PMH significant for?HLD, HTN, peripheral neuropathy, hx of endometrial cancer, hx of hysterectomy, and chronic lower back pain secondary to intermittent spinal claudication who presents to the ED with?abdominal pain, nausea, vomiting and diarrhea and admitted for sbo SBO s/p surgery, now likely ileus KUB 09/08, mild constipation and no acute process KUB 09/10 showed no interval distal progression of enteric contrast in the small bowel compared to prior consistent with a high-grade small-bowel obstruction S/p Ex lap, bowel resection on 09/10 NGT removed 09/12, and reinserted the same night d/t N/V NPO until bowel function returns , consider erythromycin as pro motility agent continue PPN, started 09/11. electrolytes and divalents are ok surgery to decide on when to advance diet AGUILAR, possible pre renal vs ATN from contrast, resolved. Acute hypOkalemia, resolved with IV replacement Elevated troponin but flat no complain of chest pain, EKG with no acute ischemia, likely demand ischemia ,no further workup. Leukocytosis, WBC trending down, likely reactive and possible colitis, resolved Completed course of Ceftriaxone and Flagyl x 9 days Follow CBC Abnormal CT findings CTA of abdomen/pelvis found evidence of possible IBD and liver cirrhosis HLD hold statin, aspirin HTN lisinopril and, hydrochlorothiazide held d/t renal failure Norvasc if going if needed.. IV meds Chronic lower back pain/lumbar spondylosis Continue carbamazepine DNR/DNI, DVT Prophylaxis: Pneumatic compression, heparin Need for inpt: Active SBO with NGT, IVF, need for surgery Quality Stroke Does the patient have a stroke diagnosis?: No VTE Prior VTE?: No VTE Risk Level:: Medical - moderate - high VTE Device Contraindication: N/A - Device Ordered VTE Drug Contraindication: Treatment Not Indicated
[2024-09-16] MEDS: amLODIPine Besylate 5 MG TABLET PO (08:55)
[2024-09-16] MEDS: carBAMazepine 200 MG TABLET PO ×2 (08:56→20:03)
[2024-09-16] MEDS: Heparin Sodium,Porcine 5,000 UNIT/ML VIAL 5000 UNIT SUBCUT ×2 (11:05→20:22)
[2024-09-16 12:00] VITALS: BP 166/80; PULSE 79; RESP 18; TEMP 36.4; O2SAT 95
[2024-09-16 12:32] LABS: Glucose, Whole Blood 133 mg/dL (60-115)
[2024-09-16] MEDS: Metoclopramide HCl 10 MG/2 ML VIAL IVPUSH (14:05)
--- NOTE | 2024-09-16 14:54 | PM.PNGS ---
Subjective Subjective Date of Service: 09/16/24 Interval history: Patient not passing any flatus or BM yet. Says her bowels or rumbling. Currently on hyperal. NG tube in with scant output. Physical Exam Vital Signs: Vital Signs: Last Vital Signs Temp 97.5 F 09/16/24 12:00 Pulse 79 09/16/24 12:00 Resp 18 09/16/24 12:00 BP 166/80 H 09/16/24 12:00 Pulse Ox 95 09/16/24 12:00 O2 Del Method Room Air 09/16/24 12:00 O2 Flow Rate 2 09/16/24 03:54 BMI result Body Mass Index 33.5 GI: Other: Abdomen corpulent, soft, mildly distended. Incisions clean dry and intact Objective Data Active Medications Acetaminophen (Acetaminophen 325 Mg Tablet) 650 mg PO Q6H PRN PRN Reason: Pain, Mild 1-3,fever,headache Last Admin: 09/12/24 23:49 Dose: 650 mg Documented By: JUSTUS Amlodipine Besylate (Amlodipine Besylate 5 Mg Tablet) 5 mg PO DAILY [facility]; Protocol Last Admin: 09/16/24 08:55 Dose: 5 mg Documented By: PALLAVI Benzocaine (Throat Lozenge, Medicated Lozenge) 1 lozenge MUCOUS MEM Q2H PRN PRN Reason: Sore Throat Last Admin: 09/14/24 21:57 Dose: 1 lozenge Documented By: TUMASY Carbamazepine (Carbamazepine 200 Mg Tablet) 200 mg PO BID [facility] Last Admin: 09/16/24 08:56 Dose: 200 mg Documented By: PALLAVI Heparin Sodium (Porcine) (Heparin Sodium,Porcine 5,000 Unit/Ml Vial) 5,000 unit SUBCUT Q12H [facility] Last Admin: 09/16/24 11:05 Dose: 5,000 unit Documented By: PALLAVI Nutrition (Parenteral) (Parenteral Nutrition) 1,680 mls @ 70 mls/hr IV .Q24H [facility]; Protocol Stop: 09/16/24 20:59 Last Admin: 09/15/24 20:12 Dose: 70 mls/hr Documented By: CAMILA Nutrition (Parenteral) (Parenteral Nutrition) 1,680 mls @ 70 mls/hr IV .Q24H [facility]; Protocol Stop: 09/17/24 20:59 Melatonin (Melatonin 3 Mg Tablet) 6 mg PO BEDTIME PRN PRN Reason: Insomnia Last Admin: 09/12/24 23:44 Dose: 6 mg Documented By: JUSTUS Metoclopramide HCl (Metoclopramide Hcl 10 Mg/2 Ml Vial) 10 mg IVPUSH Q6H PRN PRN Reason: Nausea Last Admin: 09/16/24 14:05 Dose: 10 mg Documented By: PALLAVI Multi-Ingred Medicated Throat [place] (Throat [place], Medicated 177 Ml Bottle) 1 spray MUCOUS MEM Q2H PRN PRN Reason: Sore Throat Ondansetron HCl (Ondansetron Hcl 4 Mg/2 Ml Vial) 4 mg IVPUSH Q8H PRN PRN Reason: Nausea and Vomiting Last Admin: 09/10/24 07:32 Dose: 4 mg Documented By: LUCYUMIKOME Sodium Chloride (0.9 % Sodium Chloride Flush 3 Ml Syringe) 3 ml IVFLUSH QSHIFT [facility] Last Admin: 09/16/24 08:59 Dose: Not Given Documented By: PALLAVI Non-Admin Reason: IV Running Trazodone HCl (Trazodone Hcl 50 Mg Tablet) 50 mg PO BEDTIME PRN PRN Reason: Insomnia Last Admin: 09/13/24 21:24 Dose: 50 mg Documented By: JUSTUS Labs 09/14/24 05:35 09/16/24 05:42 Labs: Laboratory Results - last 24 hr 09/15/24 09/15/24 09/16/24 18:09 23:20 05:42 Anion Gap 12 Estim Creat Clear Calc 80.5 Estimated GFR > 60 POC Glucose 93 131 H Random Glucose 133 H Calcium 9.0 Phosphorus 3.6 Magnesium 2.3 Albumin 2.9 L 09/16/24 09/16/24 05:57 12:23 Anion Gap Estim Creat Clear Calc Estimated GFR POC Glucose 126 H 133 H Random Glucose Calcium Phosphorus Magnesium Albumin Procedures Date of Service Date of Service: 09/16/24 Progress Note: A&P Assessment and plan (1) Status post exploratory laparotomy: Status: Acute Plan Patient was encouraged to get out of bed, doing her incentive spirometer, follow I's and O's, await bowel function and then can eventually remove NG tube and advance diet Time Spent With Patient Time: Total time managing care of this patient today ____ minutes. Quality Stroke Does the patient have a stroke diagnosis?: No VTE Prior VTE?: No VTE Risk Level:: Medical - moderate - high VTE Device Contraindication: N/A - Device Ordered VTE Drug Contraindication: Treatment Not Indicated
[2024-09-16 15:08] VITALS: BP 142/78; PULSE 81; RESP 18; TEMP 36.8; O2SAT 95
[2024-09-16 17:55] LABS: Glucose, Whole Blood 137 mg/dL (60-115)
--- NOTE | 2024-09-16 18:58 | PC.NURSE ---
Patient alert and oriented, forgetful at times, RA, able to use bedside commode to void, reports no BM, no pain, on continuous PPN. Patinet got oob to the chair twice this shift, NG tube in place with 500ml of dark green output. NPO, able to take morning pills with small amount of water. Patient encouraged to ambulate, use incentive spirometer. Patient c/o increased saliva, and nausea, provider notified. Surgical site to midline abdomen, payton open to air. Redness to left lower arm.
[2024-09-16 19:34] VITALS: BP 141/85; PULSE 87; RESP 18; TEMP 36.8; O2SAT 94
[2024-09-16] MEDS: Parenteral Nutrition 1,680 ML 70 ML IV (20:03)
[2024-09-16] MEDS: Throat Lozenge, Medicated LOZENGE 1 LOZENGE MUCOUS MEM (20:14)
[2024-09-16 23:30] VITALS: BP 143/63; PULSE 82; RESP 16; TEMP 36.5; O2SAT 93
[2024-09-16 23:39] LABS: Glucose, Whole Blood 131 mg/dL (60-115)
[2024-09-17 03:08] VITALS: BP 146/66; PULSE 80; RESP 16; TEMP 36.3; O2SAT 95
[2024-09-17 05:54] LABS: Glucose, Whole Blood 126 mg/dL (60-115)
[2024-09-17 07:32] VITALS: BP 147/65; PULSE 76; RESP 18; TEMP 36.4; O2SAT 92
[2024-09-17 07:37] LABS: Albumin Level 2.9 g/dL (3.5-5.0); Anion Gap 12 (12-20); Blood Urea Nitrogen 25 mg/dL (9-16); Calcium 8.8 mg/dL (8.4-10.2); Carbon Dioxide 23 mmol/L (22-29); Chloride 109 mmol/L (96-108); Creatinine Clr Calc Pharmacy 76.4; Estimated Glomerular Filt Rate > 60; Glucose Random 134 mg/dL (60-115); Magnesium 2.1 mg/dL (1.6-2.6); Phosphorus 3.6 mg/dL (2.7-4.5); Potassium 4.4 mmol/L (3.3-5.1); Sodium 140 mmol/L (135-145)
[2024-09-17 07:59] VITALS: BP 147/65
[2024-09-17] MEDS: carBAMazepine 200 MG TABLET PO ×2 (07:59→20:19)
[2024-09-17] MEDS: amLODIPine Besylate 5 MG TABLET PO (07:59)
[2024-09-17] MEDS: Heparin Sodium,Porcine 5,000 UNIT/ML VIAL 5000 UNIT SUBCUT ×2 (09:33→22:06)
[2024-09-17 11:18] VITALS: BP 139/70; PULSE 85; RESP 19; TEMP 36.6; O2SAT 96
[2024-09-17 11:29] LABS: Glucose, Whole Blood 100 mg/dL (60-115)
--- NOTE | 2024-09-17 11:47 | HO.PM.IMPN ---
Subjective Subjective Date of Service: 09/17/24 Interval History: s/p bowel resection for sbo NGT remains in place with moderate output No BM, no flatus and no pain Physical Exam Vital Signs: Vital Signs: Last Vital Signs Temp 97.9 F 09/17/24 11:18 Pulse 85 09/17/24 11:18 Resp 19 09/17/24 11:18 BP 139/70 09/17/24 11:18 Pulse Ox 96 09/17/24 11:18 O2 Del Method Room Air 09/17/24 11:18 O2 Flow Rate 2 09/16/24 15:08 BMI result Body Mass Index 33.5 Const: Other: General: AO X 3, no acute distress HEENT: NGT in place bile output Resp: CTA bilateral CVS: S1,S2,RRR GI: No BS, mildly tender Skin: No rash Neuro: motor grossly intact Psych: appropriate affect Objective Data Active Medications Acetaminophen (Acetaminophen 325 Mg Tablet) 650 mg PO Q6H PRN PRN Reason: Pain, Mild 1-3,fever,headache Last Admin: 09/12/24 23:49 Dose: 650 mg Documented By: JUSTUS Amlodipine Besylate (Amlodipine Besylate 5 Mg Tablet) 5 mg PO DAILY [facility]; Protocol Last Admin: 09/17/24 07:59 Dose: 5 mg Documented By: RONAL Benzocaine (Throat Lozenge, Medicated Lozenge) 1 lozenge MUCOUS MEM Q2H PRN PRN Reason: Sore Throat Last Admin: 09/16/24 20:14 Dose: 1 lozenge Documented By: CAMILA Carbamazepine (Carbamazepine 200 Mg Tablet) 200 mg PO BID [facility] Last Admin: 09/17/24 07:59 Dose: 200 mg Documented By: RONAL Heparin Sodium (Porcine) (Heparin Sodium,Porcine 5,000 Unit/Ml Vial) 5,000 unit SUBCUT Q12H [facility] Last Admin: 09/17/24 09:33 Dose: 5,000 unit Documented By: RONAL Nutrition (Parenteral) (Parenteral Nutrition) 1,680 mls @ 70 mls/hr IV .Q24H [facility]; Protocol Stop: 09/17/24 20:59 Last Infusion: 09/17/24 10:20 Dose: 0 mls/hr Documented By: RONAL Nutrition (Parenteral) (Parenteral Nutrition) 1,680 mls @ 70 mls/hr IV .Q24H [facility]; Protocol Stop: 09/18/24 20:59 Melatonin (Melatonin 3 Mg Tablet) 6 mg PO BEDTIME PRN PRN Reason: Insomnia Last Admin: 09/12/24 23:44 Dose: 6 mg Documented By: JUSTUS Metoclopramide HCl (Metoclopramide Hcl 10 Mg/2 Ml Vial) 10 mg IVPUSH Q6H PRN PRN Reason: Nausea Last Admin: 09/16/24 14:05 Dose: 10 mg Documented By: PALLAVI Multi-Ingred Medicated Throat [place] (Throat [place], Medicated 177 Ml Bottle) 1 spray MUCOUS MEM Q2H PRN PRN Reason: Sore Throat Ondansetron HCl (Ondansetron Hcl 4 Mg/2 Ml Vial) 4 mg IVPUSH Q8H PRN PRN Reason: Nausea and Vomiting Last Admin: 09/10/24 07:32 Dose: 4 mg Documented By: LUCCARLEY Sodium Chloride (0.9 % Sodium Chloride Flush 3 Ml Syringe) [facility] Last Admin: 09/17/24 07:52 Dose: Not Given Documented By: RONAL Non-Admin Reason: IV Running Trazodone HCl (Trazodone Hcl 50 Mg Tablet) 50 mg PO BEDTIME PRN PRN Reason: Insomnia Last Admin: 09/13/24 21:24 Dose: 50 mg Documented By: JUSTUS Labs 09/14/24 05:35 09/17/24 06:59 Labs: Laboratory Results - last 24 hr 09/16/24 09/16/24 09/16/24 12:23 17:51 23:29 Anion Gap Estim Creat Clear Calc Estimated GFR POC Glucose 133 H 137 H 131 H Random Glucose Calcium Phosphorus Magnesium Albumin 09/17/24 09/17/24 09/17/24 05:49 06:59 11:26 Anion Gap 12 Estim Creat Clear Calc 76.4 Estimated GFR > 60 POC Glucose 126 H 100 Random Glucose 134 H Calcium 8.8 Phosphorus 3.6 Magnesium 2.1 Albumin 2.9 L Assessment and Plan (1) AGUILAR (acute kidney injury): Status: Acute (2) Intractable abdominal pain: Status: Acute (3) Small bowel obstruction: Status: Acute Plan 84-year-old female with a PMH significant for?HLD, HTN, peripheral neuropathy, hx of endometrial cancer, hx of hysterectomy, and chronic lower back pain secondary to intermittent spinal claudication who presents to the ED with?abdominal pain, nausea, vomiting and diarrhea and admitted for sbo SBO s/p surgery, now likely ileus KUB 09/08, mild constipation and no acute process KUB 09/10 showed no interval distal progression of enteric contrast in the small bowel compared to prior consistent with a high-grade small-bowel obstruction S/p Ex lap, bowel resection on 09/10 NGT removed 09/12, and reinserted the same night d/t N/V NPO until bowel function returns , consider erythromycin as pro motility agent continue PPN, started 09/11. electrolytes and divalents are ok surgery to decide on when to advance diet AGUILAR, possible pre renal vs ATN from contrast, resolved. Acute hypOkalemia, resolved with IV replacement Elevated troponin but flat no complain of chest pain, EKG with no acute ischemia, likely demand ischemia ,no further workup. Leukocytosis, WBC trending down, likely reactive and possible colitis, resolved Completed course of Ceftriaxone and Flagyl x 9 days Follow CBC Abnormal CT findings CTA of abdomen/pelvis found evidence of possible IBD and liver cirrhosis HLD hold statin, aspirin HTN lisinopril and, hydrochlorothiazide held d/t renal failure Norvasc if going if needed.. IV meds Chronic lower back pain/lumbar spondylosis Continue carbamazepine DNR/DNI, DVT Prophylaxis: Pneumatic compression, heparin Need for inpt: Active SBO with NGT, IVF, need for surgery Out of bed, ambulate Quality Stroke Does the patient have a stroke diagnosis?: No VTE Prior VTE?: No VTE Risk Level:: Medical - moderate - high VTE Device Contraindication: N/A - Device Ordered VTE Drug Contraindication: Treatment Not Indicated
--- NOTE | 2024-09-17 15:20 | PM.PNGS ---
Subjective Subjective Date of Service: 09/17/24 Interval history: Patient was said she is feeling better. Thinks she passed some flatus. Minimal output from NG tube. Physical Exam Vital Signs: Vital Signs: Last Vital Signs Temp 97.9 F 09/17/24 11:18 Pulse 85 09/17/24 11:18 Resp 19 09/17/24 11:18 BP 139/70 09/17/24 11:18 Pulse Ox 96 09/17/24 11:18 O2 Del Method Room Air 09/17/24 11:18 O2 Flow Rate 2 09/16/24 15:08 BMI result Body Mass Index 33.5 GI: Other: Abdomen is softer. Incision clean dry and intact. Objective Data Active Medications Acetaminophen (Acetaminophen 325 Mg Tablet) 650 mg PO Q6H PRN PRN Reason: Pain, Mild 1-3,fever,headache Last Admin: 09/12/24 23:49 Dose: 650 mg Documented By: JUSTUS Amlodipine Besylate (Amlodipine Besylate 5 Mg Tablet) 5 mg PO DAILY [facility]; Protocol Last Admin: 09/17/24 07:59 Dose: 5 mg Documented By: RONAL Benzocaine (Throat Lozenge, Medicated Lozenge) 1 lozenge MUCOUS MEM Q2H PRN PRN Reason: Sore Throat Last Admin: 09/16/24 20:14 Dose: 1 lozenge Documented By: CAMILA Carbamazepine (Carbamazepine 200 Mg Tablet) 200 mg PO BID [facility] Last Admin: 09/17/24 07:59 Dose: 200 mg Documented By: RONAL Heparin Sodium (Porcine) (Heparin Sodium,Porcine 5,000 Unit/Ml Vial) 5,000 unit SUBCUT Q12H [facility] Last Admin: 09/17/24 09:33 Dose: 5,000 unit Documented By: RONAL Nutrition (Parenteral) (Parenteral Nutrition) 1,680 mls @ 70 mls/hr IV .Q24H [facility]; Protocol Stop: 09/17/24 20:59 Last Infusion: 09/17/24 14:43 Dose: 70 mls/hr Documented By: RONAL Nutrition (Parenteral) (Parenteral Nutrition) 1,680 mls @ 70 mls/hr IV .Q24H [facility]; Protocol Stop: 09/18/24 20:59 Melatonin (Melatonin 3 Mg Tablet) 6 mg PO BEDTIME PRN PRN Reason: Insomnia Last Admin: 09/12/24 23:44 Dose: 6 mg Documented By: JUSTUS Metoclopramide HCl (Metoclopramide Hcl 10 Mg/2 Ml Vial) 10 mg IVPUSH Q6H PRN PRN Reason: Nausea Last Admin: 09/16/24 14:05 Dose: 10 mg Documented By: PALLAVI Multi-Ingred Medicated Throat [place] (Throat [place], Medicated 177 Ml Bottle) 1 spray MUCOUS MEM Q2H PRN PRN Reason: Sore Throat Ondansetron HCl (Ondansetron Hcl 4 Mg/2 Ml Vial) 4 mg IVPUSH Q8H PRN PRN Reason: Nausea and Vomiting Last Admin: 09/10/24 07:32 Dose: 4 mg Documented By: LUCCARLEY Sodium Chloride (0.9 % Sodium Chloride Flush 3 Ml Syringe) 3 ml IVFLUSH QSHIFT [facility] Last Admin: 09/17/24 15:10 Dose: Not Given Documented By: RONAL Non-Admin Reason: IV Running Trazodone HCl (Trazodone Hcl 50 Mg Tablet) 50 mg PO BEDTIME PRN PRN Reason: Insomnia Last Admin: 09/13/24 21:24 Dose: 50 mg Documented By: JUSTUS Labs 09/14/24 05:35 09/17/24 06:59 Labs: Laboratory Results - last 24 hr 09/16/24 09/16/24 09/17/24 17:51 23:29 05:49 Anion Gap Estim Creat Clear Calc Estimated GFR POC Glucose 137 H 131 H 126 H Random Glucose Calcium Phosphorus Magnesium Albumin 09/17/24 09/17/24 06:59 11:26 Anion Gap 12 Estim Creat Clear Calc 76.4 Estimated GFR > 60 POC Glucose 100 Random Glucose 134 H Calcium 8.8 Phosphorus 3.6 Magnesium 2.1 Albumin 2.9 L Procedures Date of Service Date of Service: 09/17/24 Progress Note: A&P Assessment and plan (1) Status post exploratory laparotomy: Status: Acute Plan Trial of NG tube to gravity this afternoon and possible removal if minimal residual, encourage incentive spirometry, patient was ambulating today indistinct encouraged to do this, and we will slowly advance diet as tolerated. Hep-lock IV/hypermal when adequate p.o. Time Spent With Patient Time: Total time managing care of this patient today ____ minutes. Quality Stroke Does the patient have a stroke diagnosis?: No VTE Prior VTE?: No VTE Risk Level:: Medical - moderate - high VTE Device Contraindication: N/A - Device Ordered VTE Drug Contraindication: Treatment Not Indicated
[2024-09-17 15:23] VITALS: BP 130/60; PULSE 83; RESP 17; TEMP 36.4; O2SAT 95
--- NOTE | 2024-09-17 15:29 | PC.NURSE ---
Addendum entered by Venita Ny RN 09/17/24 17:47: patient had no nausea/vomiting or pain with NGT being clamped for 2 hours, residual checked was 0ml, tube flushed to ensure no clogging was present, Dr. Madsen updated and instructed to remove NGT. NGT out at 1745 Original Note: Patient with little output from NGT, per Dr. Madsen - clamped NGT for 2 hours, if patient is able to tolerate and there is little to no residual after being clamped for 2 hours, NGT can be removed
[2024-09-17 17:45] LABS: Glucose, Whole Blood 111 mg/dL (60-115)
[2024-09-17 19:40] VITALS: BP 140/77; PULSE 100; RESP 18; TEMP 36.3; O2SAT 94
[2024-09-17] MEDS: Parenteral Nutrition 1,680 ML 70 ML IV (22:05)
[2024-09-17 23:47] LABS: Glucose, Whole Blood 111 mg/dL (60-115)
[2024-09-18 04:00] VITALS: BP 128/68; PULSE 80; RESP 18; TEMP 36.4; O2SAT 96
[2024-09-18 06:44] LABS: Glucose, Whole Blood 137 mg/dL (60-115)
[2024-09-18 07:00] LABS: Albumin Level 2.7 g/dL (3.5-5.0); Anion Gap 11 (12-20); Blood Urea Nitrogen 26 mg/dL (9-16); Calcium 8.7 mg/dL (8.4-10.2); Carbon Dioxide 20 mmol/L (22-29); Chloride 109 mmol/L (96-108); Creatinine Clr Calc Pharmacy 80.5; Estimated Glomerular Filt Rate > 60; Glucose Random 125 mg/dL (60-115); Magnesium 2.1 mg/dL (1.6-2.6); Phosphorus 3.3 mg/dL (2.7-4.5); Potassium 4.4 mmol/L (3.3-5.1); Sodium 136 mmol/L (135-145)
[2024-09-18 07:32] VITALS: BP 146/67; PULSE 81; RESP 18; TEMP 36.3; O2SAT 94
--- NOTE | 2024-09-18 07:56 | PM.PNGS ---
Subjective Subjective Date of Service: 09/18/24 Interval history: NGT removed yesterday. Feels well. Denies nausea but denies significant flatus. OOB and ambulating. Physical Exam Vital Signs: Vital Signs: Last Vital Signs Temp 97.3 F 09/18/24 07:32 Pulse 81 09/18/24 07:32 Resp 18 09/18/24 07:32 BP 146/67 H 09/18/24 07:32 Pulse Ox 94 09/18/24 07:32 O2 Del Method Room Air 09/18/24 07:32 O2 Flow Rate 2 09/16/24 15:08 BMI result Body Mass Index 33.5 Const: General: comfortable, no acute distress and alert Orientation/consciousness: patient oriented x3 GI: Inspection: Yes distended (mild) and Yes incision (clean) Palpation (GI): Soft to palpation Skin: General skin exam: no rashes or lesions noted Neuro: General: patient oriented x3 and moves all extremities Objective Data Active Medications Acetaminophen (Acetaminophen 325 Mg Tablet) 650 mg PO Q6H PRN PRN Reason: Pain, Mild 1-3,fever,headache Last Admin: 09/12/24 23:49 Dose: 650 mg Documented By: JUSTUS Amlodipine Besylate (Amlodipine Besylate 5 Mg Tablet) 5 mg PO DAILY [facility]; Protocol Last Admin: 09/17/24 07:59 Dose: 5 mg Documented By: RONAL Benzocaine (Throat Lozenge, Medicated Lozenge) 1 lozenge MUCOUS MEM Q2H PRN PRN Reason: Sore Throat Last Admin: 09/16/24 20:14 Dose: 1 lozenge Documented By: CAMILA Carbamazepine (Carbamazepine 200 Mg Tablet) 200 mg PO BID [facility] Last Admin: 09/17/24 20:19 Dose: 200 mg Documented By: JUSTUS Heparin Sodium (Porcine) (Heparin Sodium,Porcine 5,000 Unit/Ml Vial) 5,000 unit SUBCUT Q12H [facility] Last Admin: 09/17/24 22:06 Dose: 5,000 unit Documented By: JUSTUS Nutrition (Parenteral) (Parenteral Nutrition) 1,680 mls @ 70 mls/hr IV .Q24H [facility]; Protocol Stop: 09/18/24 20:59 Last Admin: 09/17/24 22:05 Dose: 70 mls/hr Documented By: JUSTUS Nutrition (Parenteral) (Parenteral Nutrition) 1,680 mls @ 70 mls/hr IV .Q24H [facility]; Protocol Stop: 09/19/24 20:59 Melatonin (Melatonin 3 Mg Tablet) 6 mg PO BEDTIME PRN PRN Reason: Insomnia Last Admin: 09/12/24 23:44 Dose: 6 mg Documented By: JUSTUS Metoclopramide HCl (Metoclopramide Hcl 10 Mg/2 Ml Vial) 10 mg IVPUSH Q6H PRN PRN Reason: Nausea Last Admin: 09/16/24 14:05 Dose: 10 mg Documented By: PALLAVI Multi-Ingred Medicated Throat [place] (Throat [place], Medicated 177 Ml Bottle) 1 spray MUCOUS MEM Q2H PRN PRN Reason: Sore Throat Ondansetron HCl (Ondansetron Hcl 4 Mg/2 Ml Vial) 4 mg IVPUSH Q8H PRN PRN Reason: Nausea and Vomiting Last Admin: 09/10/24 07:32 Dose: 4 mg Documented By: LUCYUMIKOME Sodium Chloride (0.9 % Sodium Chloride Flush 3 Ml Syringe) [facility] Last Admin: 09/17/24 20:25 Dose: Not Given Documented By: JUSTUS Non-Admin Reason: IV Running Trazodone HCl (Trazodone Hcl 50 Mg Tablet) 50 mg PO BEDTIME PRN PRN Reason: Insomnia Last Admin: 09/13/24 21:24 Dose: 50 mg Documented By: JUSTUS Labs 09/14/24 05:35 09/18/24 05:51 Labs: Laboratory Results - last 24 hr 09/17/24 09/17/24 09/17/24 11:26 17:42 23:43 Hold Purple Top Anion Gap Estim Creat Clear Calc Estimated GFR POC Glucose 100 111 111 Random Glucose Calcium Phosphorus Magnesium Albumin 09/18/24 09/18/24 05:51 06:40 Hold Purple Top SEE NOTE Anion Gap 11 L Estim Creat Clear Calc 80.5 Estimated GFR > 60 POC Glucose 137 H Random Glucose 125 H Calcium 8.7 Phosphorus 3.3 Magnesium 2.1 Albumin 2.7 L Procedures Date of Service Date of Service: 09/18/24 Progress Note: A&P Assessment and plan (1) Status post exploratory laparotomy: Status: Acute Plan NGT removed yesterday. Abd overall benign, softly distended. Can advance to clear liquids. Cont to increase activity, OOB, incentive spirometer. Time Spent With Patient Time: Total time managing care of this patient today ____ minutes. Quality Stroke Does the patient have a stroke diagnosis?: No VTE Prior VTE?: No VTE Risk Level:: Medical - moderate - high VTE Device Contraindication: N/A - Device Ordered VTE Drug Contraindication: Treatment Not Indicated
[2024-09-18] MEDS: carBAMazepine 200 MG TABLET PO ×2 (08:12→19:59)
[2024-09-18] MEDS: amLODIPine Besylate 5 MG TABLET PO (08:12)
[2024-09-18] MEDS: Heparin Sodium,Porcine 5,000 UNIT/ML VIAL 5000 UNIT SUBCUT ×2 (08:12→21:28)
--- NOTE | 2024-09-18 10:16 | P.PNIM_ITS ---
Subjective Subjective Date of Service: 09/18/24 Interval History: s/p bowel resection for sbo NGT removed last evening, no n/v, no bm of flattus Physical Exam 2 Vital Signs: Vital Signs: Last Vital Signs Temp 97.3 F 09/18/24 07:32 Pulse 81 09/18/24 07:32 Resp 18 09/18/24 07:32 BP 146/67 H 09/18/24 07:32 Pulse Ox 94 09/18/24 07:32 O2 Del Method Room Air 09/18/24 07:32 O2 Flow Rate 2 09/16/24 15:08 BMI result Body Mass Index 33.5 Const: Other: General: AO X 3, no acute distress HEENT: NGT in place bile output Resp: CTA bilateral CVS: S1,S2,RRR GI: soft, non tender but inaudible bowel sounds Skin: No rash Neuro: motor grossly intact Psych: appropriate affect Objective Data Active Medications Acetaminophen (Acetaminophen 325 Mg Tablet) 650 mg PO Q6H PRN PRN Reason: Pain, Mild 1-3,fever,headache Last Admin: 09/12/24 23:49 Dose: 650 mg Documented By: JUSTUS Amlodipine Besylate (Amlodipine Besylate 5 Mg Tablet) 5 mg PO DAILY [facility]; Protocol Last Admin: 09/18/24 08:12 Dose: 5 mg Documented By: CHEY Benzocaine (Throat Lozenge, Medicated Lozenge) 1 lozenge MUCOUS MEM Q2H PRN PRN Reason: Sore Throat Last Admin: 09/16/24 20:14 Dose: 1 lozenge Documented By: CAMILA Carbamazepine (Carbamazepine 200 Mg Tablet) 200 mg PO BID [facility] Last Admin: 09/18/24 08:12 Dose: 200 mg Documented By: CHEY Heparin Sodium (Porcine) (Heparin Sodium,Porcine 5,000 Unit/Ml Vial) 5,000 unit SUBCUT Q12H [facility] Last Admin: 09/18/24 08:12 Dose: 5,000 unit Documented By: CHEY Nutrition (Parenteral) (Parenteral Nutrition) 1,680 mls @ 70 mls/hr IV .Q24H [facility]; Protocol Stop: 09/18/24 20:59 Last Admin: 09/17/24 22:05 Dose: 70 mls/hr Documented By: JUSTUS Nutrition (Parenteral) (Parenteral Nutrition) 1,680 mls @ 70 mls/hr IV .Q24H [facility]; Protocol Stop: 09/19/24 20:59 Melatonin (Melatonin 3 Mg Tablet) 6 mg PO BEDTIME PRN PRN Reason: Insomnia Last Admin: 09/12/24 23:44 Dose: 6 mg Documented By: JUSTUS Metoclopramide HCl (Metoclopramide Hcl 10 Mg/2 Ml Vial) 10 mg IVPUSH Q6H PRN PRN Reason: Nausea Last Admin: 09/16/24 14:05 Dose: 10 mg Documented By: PALLAVI Multi-Ingred Medicated Throat [place] (Throat [place], Medicated 177 Ml Bottle) 1 spray MUCOUS MEM Q2H PRN PRN Reason: Sore Throat Ondansetron HCl (Ondansetron Hcl 4 Mg/2 Ml Vial) 4 mg IVPUSH Q8H PRN PRN Reason: Nausea and Vomiting Last Admin: 09/10/24 07:32 Dose: 4 mg Documented By: CHEY Sodium Chloride (0.9 % Sodium Chloride Flush 3 Ml Syringe) 3 ml IVFLUSH [facility] Last Admin: 09/18/24 07:58 Dose: Not Given Documented By: CHEY Non-Admin Reason: IV Running Trazodone HCl (Trazodone Hcl 50 Mg Tablet) 50 mg PO BEDTIME PRN PRN Reason: Insomnia Last Admin: 09/13/24 21:24 Dose: 50 mg Documented By: JUSTUS Labs 09/14/24 05:35 09/18/24 05:51 Labs: Laboratory Results - last 24 hr 09/17/24 09/17/24 09/17/24 11:26 17:42 23:43 Hold Purple Top Anion Gap Estim Creat Clear Calc Estimated GFR POC Glucose 100 111 111 Random Glucose Calcium Phosphorus Magnesium Albumin 09/18/24 09/18/24 05:51 06:40 Hold Purple Top SEE NOTE Anion Gap 11 L Estim Creat Clear Calc 80.5 Estimated GFR > 60 POC Glucose 137 H Random Glucose 125 H Calcium 8.7 Phosphorus 3.3 Magnesium 2.1 Albumin 2.7 L Assessment and Plan (1) AGUILAR (acute kidney injury): Status: Acute (2) Intractable abdominal pain: Status: Acute (3) Small bowel obstruction: Status: Acute Plan 84-year-old female with a PMH significant for?HLD, HTN, peripheral neuropathy, hx of endometrial cancer, hx of hysterectomy, and chronic lower back pain secondary to intermittent spinal claudication who presents to the ED with?abdominal pain, nausea, vomiting and diarrhea and admitted for sbo SBO s/p surgery, now likely ileus KUB 09/08, mild constipation and no acute process KUB 09/10 showed no interval distal progression of enteric contrast in the small bowel compared to prior consistent with a high-grade small-bowel obstruction S/p Ex lap, bowel resection on 09/10 NGT removed 09/12, and reinserted the same night d/t N/V NGT removed again 09/17 NPO until surgery advances diet , consider erythromycin as pro motility agent continue PPN, started 09/11. electrolytes and divalents are ok surgery to decide on when to advance diet AGUILAR, possible pre renal vs ATN from contrast, resolved. Acute hypOkalemia, resolved with IV replacement Elevated troponin but flat no complain of chest pain, EKG with no acute ischemia, likely demand ischemia ,no further workup. Leukocytosis, WBC trending down, likely reactive and possible colitis, resolved Completed course of Ceftriaxone and Flagyl x 9 days Follow CBC Abnormal CT findings CTA of abdomen/pelvis found evidence of possible IBD and liver cirrhosis HLD hold statin, aspirin HTN continue norvasc Chronic lower back pain/lumbar spondylosis Continue carbamazepine DNR/DNI, DVT Prophylaxis: Pneumatic compression, heparin Need for inpt: Active SBO with NGT, IVF, need for surgery Out of bed, ambulate Quality Stroke Does the patient have a stroke diagnosis?: No VTE Prior VTE?: No VTE Risk Level:: Medical - moderate - high VTE Device Contraindication: N/A - Device Ordered VTE Drug Contraindication: Treatment Not Indicated
[2024-09-18 11:24] LABS: Triglycerides 241 mg/dL (<150)
--- NOTE | 2024-09-18 11:27 | MHC.CLN ---
F/U NGT OUT 09/17. DIET ADVANCED TO CLEAR LIQUIDS TODAY PER SURGERY REC. CONTINUE PPN. REVIEWED LABS. COMMUNICATED WITH PHARMACY. CONTINUE PPN AT MAX GOAL: PPN AT 70ML/HOUR WITH 65G LIPIDS TO PROVIDE 1507 TOTAL KCALS (26KCALS/KG IBW), 71G PROTEIN (1.25G/KG IBW), 168G DEXTROSE REPLETE LYTES NEEDED. CHECK TRIGLYCERIDES. CONTINUE TO FOLLOW FOR PPN TOLERANCE AND DIET ADVANCEMENT.
[2024-09-18 11:38] VITALS: BP 153/70; PULSE 82; RESP 16; TEMP 36.4; O2SAT 93
[2024-09-18 12:02] LABS: Glucose, Whole Blood 139 mg/dL (60-115)
[2024-09-18 15:27] VITALS: BP 137/66; PULSE 83; RESP 18; TEMP 36.4; O2SAT 96
--- NOTE | 2024-09-18 15:27 | MHC.CM.PN ---
per rounds pt has a sbo no foy to dc at thisi time
--- NOTE | 2024-09-18 15:28 | MHC.CM.PN ---
per rounds pt not medically clear for dc dc plan remans for home
[2024-09-18 17:36] LABS: Glucose, Whole Blood 120 mg/dL (60-115)
[2024-09-18 19:43] VITALS: BP 155/70; PULSE 76; RESP 18; TEMP 36.9; O2SAT 97
[2024-09-18] MEDS: Parenteral Nutrition 1,680 ML 70 ML IV (20:00)
[2024-09-18] MEDS: 0.9 % Sodium Chloride Flush 3 ML SYRINGE IVFLUSH (20:08)
[2024-09-18 23:33] VITALS: BP 144/72; PULSE 80; RESP 18; TEMP 36.9; O2SAT 95
[2024-09-18 23:57] LABS: Glucose, Whole Blood 110 mg/dL (60-115)
[2024-09-19 03:58] VITALS: BP 147/72; PULSE 75; RESP 18; TEMP 36.7; O2SAT 97
[2024-09-19 06:25] LABS: Glucose, Whole Blood 126 mg/dL (60-115)
[2024-09-19 06:51] LABS: Albumin Level 2.6 g/dL (3.5-5.0); Anion Gap 11 (12-20); Blood Urea Nitrogen 19 mg/dL (9-16); Calcium 8.3 mg/dL (8.4-10.2); Carbon Dioxide 20 mmol/L (22-29); Chloride 106 mmol/L (96-108); Creatinine Clr Calc Pharmacy 86.7; Estimated Glomerular Filt Rate > 60; Glucose Random 119 mg/dL (60-115); Magnesium 1.9 mg/dL (1.6-2.6); Phosphorus 3.1 mg/dL (2.7-4.5); Potassium 4.1 mmol/L (3.3-5.1); Sodium 133 mmol/L (135-145)
[2024-09-19 07:32] VITALS: BP 164/74; PULSE 74; RESP 16; TEMP 36.7; O2SAT 94
--- NOTE | 2024-09-19 08:12 | P.PNGS_ITS ---
Subjective Subjective Date of Service: 09/19/24 Interval history: Patient reports multiple bowel movements, loose, no bleeding. Tolerating clear liquid diet. She feels ready for a regular diet. Physical Exam 2 Vital Signs: Vital Signs: Last Vital Signs Temp 98.0 F 09/19/24 07:32 Pulse 74 09/19/24 07:32 Resp 16 09/19/24 07:32 BP 164/74 H 09/19/24 07:32 Pulse Ox 94 09/19/24 07:32 O2 Del Method Room Air 09/19/24 07:32 O2 Flow Rate 2 09/16/24 15:08 BMI result Body Mass Index 33.5 Const: General: no acute distress Nutritional Appearance: well nourished Orientation/consciousness: patient oriented x3 Resp: Effort & Inspection: normal respiratory effort GI: Other: Soft and nondistended, incision clean and intact. Skin: General skin exam: no rashes or lesions noted Neuro: General: patient oriented x3 Objective Data Active Medications Acetaminophen (Acetaminophen 325 Mg Tablet) 650 mg PO Q6H PRN PRN Reason: Pain, Mild 1-3,fever,headache Last Admin: 09/12/24 23:49 Dose: 650 mg Documented By: JUSTUS Amlodipine Besylate (Amlodipine Besylate 5 Mg Tablet) 5 mg PO DAILY [facility]; Protocol Last Admin: 09/18/24 08:12 Dose: 5 mg Documented By: CHEY Benzocaine (Throat Lozenge, Medicated Lozenge) 1 lozenge MUCOUS MEM Q2H PRN PRN Reason: Sore Throat Last Admin: 09/16/24 20:14 Dose: 1 lozenge Documented By: CAMILA Carbamazepine (Carbamazepine 200 Mg Tablet) 200 mg PO BID [facility] Last Admin: 09/18/24 19:59 Dose: 200 mg Documented By: JUSTUS Heparin Sodium (Porcine) (Heparin Sodium,Porcine 5,000 Unit/Ml Vial) 5,000 unit SUBCUT Q12H [facility] Last Admin: 09/18/24 21:28 Dose: 5,000 unit Documented By: JUSTUS Nutrition (Parenteral) (Parenteral Nutrition) 1,680 mls @ 70 mls/hr IV .Q24H [facility]; Protocol Stop: 09/19/24 20:59 Last Admin: 09/18/24 20:00 Dose: 70 mls/hr Documented By: JUSTUS Melatonin (Melatonin 3 Mg Tablet) 6 mg PO BEDTIME PRN PRN Reason: Insomnia Last Admin: 09/12/24 23:44 Dose: 6 mg Documented By: JUSTUS Metoclopramide HCl (Metoclopramide Hcl 10 Mg/2 Ml Vial) 10 mg IVPUSH Q6H PRN PRN Reason: Nausea Last Admin: 09/16/24 14:05 Dose: 10 mg Documented By: PALLAVI Multi-Ingred Medicated Throat [place] (Throat [place], Medicated 177 Ml Bottle) 1 spray MUCOUS MEM Q2H PRN PRN Reason: Sore Throat Ondansetron HCl (Ondansetron Hcl 4 Mg/2 Ml Vial) 4 mg IVPUSH Q8H PRN PRN Reason: Nausea and Vomiting Last Admin: 09/10/24 07:32 Dose: 4 mg Documented By: LUCCARLEY Sodium Chloride (0.9 % Sodium Chloride Flush 3 Ml Syringe) [facility] Last Admin: 09/18/24 20:08 Dose: 3 ml Documented By: JUSTUS Trazodone HCl (Trazodone Hcl 50 Mg Tablet) 50 mg PO BEDTIME PRN PRN Reason: Insomnia Last Admin: 09/13/24 21:24 Dose: 50 mg Documented By: JUSTUS Labs 09/14/24 05:35 09/19/24 05:50 Labs: Laboratory Results - last 24 hr 09/18/24 09/18/24 09/18/24 05:51 11:58 17:33 Hold Purple Top Anion Gap Estim Creat Clear Calc Estimated GFR POC Glucose 139 H 120 H Random Glucose Calcium Phosphorus Magnesium Albumin Triglycerides 241 H 09/18/24 09/19/24 09/19/24 23:36 05:50 06:20 Hold Purple Top SEE NOTE Anion Gap 11 L Estim Creat Clear Calc 86.7 Estimated GFR > 60 POC Glucose 110 126 H Random Glucose 119 H Calcium 8.3 L Phosphorus 3.1 Magnesium 1.9 Albumin 2.6 L Triglycerides Procedures Date of Service Date of Service: 09/19/24 Progress Note: A&P Assessment and plan (1) Small bowel obstruction: Status: Acute Plan 84-year-old female patient presenting with small-bowel obstruction status post small bowel resection, lysis of adhesions. Patient now much improved, tolerating clear liquid diet and moving her bowels. We will advance to regular diet. May be ready for discharge in a.m. if diet well-tolerated and cleared by hospitalist team. Time Spent With Patient Time: Total time managing care of this patient today ____ minutes. Quality Stroke Does the patient have a stroke diagnosis?: No VTE Prior VTE?: No VTE Risk Level:: Medical - moderate - high VTE Device Contraindication: N/A - Device Ordered VTE Drug Contraindication: Treatment Not Indicated
--- NOTE | 2024-09-19 08:41 | P.PNIM_ITS ---
Subjective Subjective Date of Service: 09/19/24 Interval History: Tolerated liquid diet and has had bm overall feels better Physical Exam 2 Vital Signs: Vital Signs: Last Vital Signs Temp 98.0 F 09/19/24 07:32 Pulse 74 09/19/24 07:32 Resp 16 09/19/24 07:32 BP 164/74 H 09/19/24 07:32 Pulse Ox 94 09/19/24 07:32 O2 Del Method Room Air 09/19/24 07:32 O2 Flow Rate 2 09/16/24 15:08 BMI result Body Mass Index 33.5 Const: Other: General: AO X 3, no acute distress Resp: CTA bilateral CVS: S1,S2,RRR GI: +BS, NT, no distention Skin: No rash Neuro: motor grossly intact Psych: appropriate affect Objective Data Active Medications Acetaminophen (Acetaminophen 325 Mg Tablet) 650 mg PO Q6H PRN PRN Reason: Pain, Mild 1-3,fever,headache Last Admin: 09/12/24 23:49 Dose: 650 mg Documented By: JUSTUS Amlodipine Besylate (Amlodipine Besylate 5 Mg Tablet) 5 mg PO DAILY [facility]; Protocol Last Admin: 09/18/24 08:12 Dose: 5 mg Documented By: CHEY Benzocaine (Throat Lozenge, Medicated Lozenge) 1 lozenge MUCOUS MEM Q2H PRN PRN Reason: Sore Throat Last Admin: 09/16/24 20:14 Dose: 1 lozenge Documented By: CAMILA Carbamazepine (Carbamazepine 200 Mg Tablet) 200 mg PO BID [facility] Last Admin: 09/18/24 19:59 Dose: 200 mg Documented By: JUSTUS Heparin Sodium (Porcine) (Heparin Sodium,Porcine 5,000 Unit/Ml Vial) 5,000 unit SUBCUT Q12H [facility] Last Admin: 09/18/24 21:28 Dose: 5,000 unit Documented By: JUSTUS Nutrition (Parenteral) (Parenteral Nutrition) 1,680 mls @ 70 mls/hr IV .Q24H [facility]; Protocol Stop: 09/19/24 20:59 Last Admin: 09/18/24 20:00 Dose: 70 mls/hr Documented By: JUSTUS Melatonin (Melatonin 3 Mg Tablet) 6 mg PO BEDTIME PRN PRN Reason: Insomnia Last Admin: 09/12/24 23:44 Dose: 6 mg Documented By: JUSTUS Metoclopramide HCl (Metoclopramide Hcl 10 Mg/2 Ml Vial) 10 mg IVPUSH Q6H PRN PRN Reason: Nausea Last Admin: 09/16/24 14:05 Dose: 10 mg Documented By: PALLAVI Multi-Ingred Medicated Throat [place] (Throat [place], Medicated 177 Ml Bottle) 1 spray MUCOUS MEM Q2H PRN PRN Reason: Sore Throat Ondansetron HCl (Ondansetron Hcl 4 Mg/2 Ml Vial) 4 mg IVPUSH Q8H PRN PRN Reason: Nausea and Vomiting Last Admin: 09/10/24 07:32 Dose: 4 mg Documented By: CHEY Sodium Chloride (0.9 % Sodium Chloride Flush 3 Ml Syringe) [facility] Last Admin: 09/18/24 20:08 Dose: 3 ml Documented By: JUSTUS Trazodone HCl (Trazodone Hcl 50 Mg Tablet) 50 mg PO BEDTIME PRN PRN Reason: Insomnia Last Admin: 09/13/24 21:24 Dose: 50 mg Documented By: JUSTUS Labs 09/14/24 05:35 09/19/24 05:50 Labs: Laboratory Results - last 24 hr 09/18/24 09/18/24 09/18/24 05:51 11:58 17:33 Hold Purple Top Anion Gap Estim Creat Clear Calc Estimated GFR POC Glucose 139 H 120 H Random Glucose Calcium Phosphorus Magnesium Albumin Triglycerides 241 H 09/18/24 09/19/24 09/19/24 23:36 05:50 06:20 Hold Purple Top SEE NOTE Anion Gap 11 L Estim Creat Clear Calc 86.7 Estimated GFR > 60 POC Glucose 110 126 H Random Glucose 119 H Calcium 8.3 L Phosphorus 3.1 Magnesium 1.9 Albumin 2.6 L Triglycerides Assessment and Plan (1) AGUILAR (acute kidney injury): Status: Acute (2) Intractable abdominal pain: Status: Acute (3) Small bowel obstruction: Status: Acute Plan 84-year-old female with a PMH significant for?HLD, HTN, peripheral neuropathy, hx of endometrial cancer, hx of hysterectomy, and chronic lower back pain secondary to intermittent spinal claudication who presents to the ED with?abdominal pain, nausea, vomiting and diarrhea and admitted for sbo SBO s/p surgery followed by ileus KUB 09/08, mild constipation and no acute process KUB 09/10 showed no interval distal progression of enteric contrast in the small bowel compared to prior consistent with a high-grade small-bowel obstruction S/p Ex lap, bowel resection on 09/10 NGT removed 09/12, and reinserted the same night d/t N/V NGT removed again 09/17 Started on liquid diet on 09/18, advanced to regular 09/19 PPN s 09/11 to 09/19. electrolytes and divalents are ok. AGUILAR, possible pre renal vs ATN from contrast, resolved. Acute hypOkalemia, resolved with IV replacement Elevated troponin but flat no complain of chest pain, EKG with no acute ischemia, likely demand ischemia ,no further workup. Leukocytosis, WBC trending down, likely reactive and possible colitis, resolved Completed course of Ceftriaxone and Flagyl x [address] findings CTA of abdomen/pelvis found evidence of possible IBD and liver cirrhosis HLD hold statin, aspirin HTN, at home on hctz-lisinipril 12.5 started on Norvasc here, increase to 10 today Chronic lower back pain/lumbar spondylosis Continue carbamazepine DNR/DNI, DVT Prophylaxis: Pneumatic compression, [facility] PT eval today need for inpt: small bowell surgery complicated by ileus, now better Quality Stroke Does the patient have a stroke diagnosis?: No VTE Prior VTE?: No VTE Risk Level:: Medical - moderate - high VTE Device Contraindication: N/A - Device Ordered VTE Drug Contraindication: Treatment Not Indicated
[2024-09-19] MEDS: carBAMazepine 200 MG TABLET PO ×2 (08:46→21:49)
[2024-09-19 10:28] VITALS: BP 164/74; PULSE 74; O2SAT 94
[2024-09-19] MEDS: amLODIPine Besylate 10 MG TABLET PO (10:42)
[2024-09-19] MEDS: Enoxaparin Sodium 40 MG/0.4 ML SYRINGE SUBCUT (10:42)
[2024-09-19 11:11] LABS: Glucose, Whole Blood 138 mg/dL (60-115)
[2024-09-19 11:55] VITALS: BP 132/61; PULSE 82; RESP 16; TEMP 36.2; O2SAT 98
[2024-09-19 15:09] VITALS: BP 121/57; PULSE 82; RESP 16; TEMP 36.6; O2SAT 94
[2024-09-19 17:19] LABS: Glucose, Whole Blood 107 mg/dL (60-115)
--- NOTE | 2024-09-19 18:50 | PC.NURSE ---
Pt on PPN and IV infiltrated. Difficult IV stick. Tolerating PO, regular diet. Having BMs. Ok to leave IV out per provider. PPN D/c'd. Pt continued to have loose brown stool throughout the day. Stool for C-diff ordered.
[2024-09-19 19:57] VITALS: BP 132/62; PULSE 82; RESP 18; TEMP 37.2; O2SAT 95
[2024-09-19 20:03] LABS: Glucose, Whole Blood 130 mg/dL (60-115)
[2024-09-20] VITALS: BP 130/60; PULSE 69; RESP 18; TEMP 36.6; O2SAT 94
[2024-09-20 00:26] LABS: Glucose, Whole Blood 93 mg/dL (60-115)
--- NOTE | 2024-09-20 01:45 | PC.NURSE ---
no BM so far, unable to collect stool sample.
[2024-09-20 04:00] VITALS: BP 141/71; PULSE 76; RESP 18; TEMP 36.5; O2SAT 95
[2024-09-20 06:06] LABS: Glucose, Whole Blood 96 mg/dL (60-115)
[2024-09-20 07:11] LABS: Albumin Level 2.8 g/dL (3.5-5.0); Anion Gap 10 (12-20); Blood Urea Nitrogen 17 mg/dL (9-16); Calcium 8.5 mg/dL (8.4-10.2); Carbon Dioxide 23 mmol/L (22-29); Chloride 105 mmol/L (96-108); Creatinine Clr Calc Pharmacy 79.1; Estimated Glomerular Filt Rate > 60; Glucose Random 88 mg/dL (60-115); Magnesium 1.9 mg/dL (1.6-2.6); Phosphorus 3.1 mg/dL (2.7-4.5); Potassium 3.8 mmol/L (3.3-5.1); Sodium 134 mmol/L (135-145)
[2024-09-20 07:38] VITALS: BP 143/65; PULSE 74; RESP 18; TEMP 36.6; O2SAT 96
[2024-09-20] MEDS: carBAMazepine 200 MG TABLET PO (08:13)
[2024-09-20] MEDS: Enoxaparin Sodium 40 MG/0.4 ML SYRINGE SUBCUT (08:13)
[2024-09-20] MEDS: amLODIPine Besylate 10 MG TABLET PO (08:13)
--- NOTE | 2024-09-20 08:39 | P.DS_ITS ---
DS: Providers Provider Date of Service: 09/20/24 Date of admission: 09/06/24 20:29 Date of discharge: 09/20/24 Primary care physician: Vito Joel MD Consults: 09/06/24 20:29 Consult to General Surgery Routine Consulting Provider: [facility] Reason for consultation: SBO vs Ileus 09/08/24 09:26 Consult to Nephrology Routine Consulting Provider: [facility] Reason for consultation: AGUILAR 09/09/24 11:30 Consult to Gastroenterology Routine Consulting Provider: Kaitlin Mcdowell Reason for consultation: ?colitis, cirrhosis on CT DS: Diagnosis Discharge Diagnosis (1) AGUILAR (acute kidney injury): Status: Acute (2) Intractable abdominal pain: Status: Acute (3) Small bowel obstruction: Status: Acute DS: Summary Hospital Course Hospital Course: admission hpi Chief Complaint: Abdominal pain Pt is an 84-year-old female with a PMH significant for?HLD, HTN, peripheral neuropathy, hx of endometrial cancer, hx of hysterectomy, and chronic lower back pain secondary to intermittent spinal claudication who presents to the ED with?abdominal pain, nausea, vomiting and diarrhea since this morning. Pt reports was in her normal state of health yesterday, but upon awakening this morning had intense abdominal pain and cramping in a band across her abdomen kaitlin t radiated to her back. Multiple episodes of nausea and vomiting, and initially some small amounts of diarrhea. Subjective fever and chills this morning, but never measured temperature. Pt reports previous surgical hx of complete hysterectomy secondary to endometrial cancer 20 years ago. Denies past hx of SBO. Pt reports feels dilated and bloated. Has not passed gas recently. No chest pain/pressure, palpitations. Denies shortness or breath or difficulty breathing. In the ED pt was initially hypertensive at 164/84, vitals otherwise stable and WNL. Labs were significant for leukocytosis 19.6, sodium 134, and alk-phos mildly elevated at 119. Stable H&H. Renal function WNL. UA negative for UTI. Tested negative for flu, COVID, RSV. CT?of abdomen and pelvis showed mild dilation of small bowel that could represent small bowel obstruction or ileus. Also showed bowel wall thickening with fatty replacement of ascending colon possibly representing inflammatory bowel disease, and mild nodular thickening of liver surface with small ascites and liver cirrhosis can not be excluded. Pt was treated with Maalox, famotidine morphine, acetaminophen, and ondansetron. Pt will be admitted to the hospital for treatment and further evaluation of intractable nausea, vomiting, and abdominal pain concerning for SBO vs ileus. hosptial course: 84-year-old female with a past medical history significant for hyperlipidemia (HLD), hypertension (HTN), peripheral neuropathy, history of endometrial cancer, history of hysterectomy, and chronic lower back pain secondary to intermittent spinal claudication who presented to the ED with abdominal pain, nausea, vomiting, and diarrhea. CT of the abdomen showed findings of small bowel obstruction (SBO) versus ileus, and possible colitis. She was initially managed conservatively with nasogastric tube (NGT) and followed closely by surgery. She developed acute kidney injury (AGUILAR) with creatinine rising from an initial 0.63 on 09/06 to 2.60 on 09/08. She was also initiated on antibiotics with ceftriaxone and metronidazole (Flagyl) for colitis on CT along with elevated white blood cell (WBC) count. After several days of NGT and surgical consultation, she did not improve and underwent small bowel surgery, subsequently experiencing prolonged periods of ileus, and was started on parenteral peripheral nutrition ( PPN) until the ileus ultimately resolved. See the sequence of events as follows. 09/06 Admitted, CT showed SBO versus ileus, NGT was inserted for possible non- invasive management. 09/08 KUB, mild constipation and no acute process. 09/10 KUB showed no interval distal progression of enteric contrast in the small bowel compared to prior, consistent with a high-grade small-bowel obstruction. 09/10 Status post exploratory laparotomy (Ex lap), NGT. 09/11 started on PPN. 09/12 NGT removed, but had to be reinserted the same day due to nausea/vomiting from ileus. 09/17 NGT removed again. 09/18 started on liquid diet, tolerated well, advanced to regular diet 09/19 and PPN stopped. She has regained bowel function and has had bowel movements. AGUILAR, she developed AGUILAR with creatinine rising from an initial 0.63 on 09/06 to 2.60 on 09/08, concern for contrast-related nephropathy. Hydrochlorothiazide- lisinopril was stopped, she was seen by a department helper, given intravenous fluids (IVF), and renal function has recovered fully; presently, creatinine is 0.57 (09/20/24). Acute hypokalemia, resolved with intravenous replacement. Elevated troponin but flat, no complaints of chest pain, electrocardiogram (EKG) with no acute ischemia, likely demand ischemia, no further workup. Colitis with leukocytosis, completed a course of ceftriaxone and metronidazole for [address] findings, CT angiography (CTA) of the abdomen/pelvis found evidence of possible inflammatory bowel disease (IBD) and liver cirrhosis, outpatient follow-up. HLD, hold statin for possible cirrhosis. HTN, at home on hydrochlorothiazide-lisinopril 12.11/11, stopped due to renal failure and hypokalemia, started on amlodipine (Norvasc) here and up to 10 mg daily, and adding furosemide (Lasix) 20 mg daily. Chronic lower back pain/lumbar spondylosis, continue carbamazepine. Physical deconditioning from prolonged hospitalization: to short-term rehabilitation for less than 30 days. Time Attestation Discharge Coordination Time (in mins): 45 Quality: Safe Use of Opioids Does Pt have an Active Cancer Diagnosis on the Problem List?: No Quality: Stroke Does the patient have a stroke diagnosis?: No Physical Exam Vital Signs: Vital Signs: Last Vital Signs Temp 97.8 F 09/20/24 07:38 Pulse 74 09/20/24 07:38 Resp 18 09/20/24 07:38 BP 143/65 H 09/20/24 07:38 Pulse Ox 96 09/20/24 07:38 O2 Del Method Room Air 09/20/24 07:38 O2 Flow Rate 2 09/16/24 15:08 BMI result Body Mass Index 33.5 Const: Other: General: AO X 3, no acute distress Resp: CTA bilateral CVS: S1,S2,RRR GI: +BS, NT, no distention Skin: No rash Neuro: motor grossly intact Psych: appropriate affect DS: Data Data Completed and Pending Completed studies during hospitalization [Text1]: Pending at discharge 09/10/24 16:43 Surgical [PTH] Routine Labs on day of discharge: Laboratory Results - last 24 hr 09/19/24 09/19/24 09/19/24 11:08 17:16 19:59 Sodium Potassium Chloride Carbon Dioxide Anion Gap BUN Creatinine Estim Creat Clear Calc Estimated GFR POC Glucose 138 H 107 130 H Random Glucose Calcium Phosphorus Magnesium Albumin 0309/20/24 09/20/24 00:23 05:54 06:01 Sodium 134 L Potassium 3.8 Chloride 105 Carbon Dioxide 23 Anion Gap 10 L BUN 17 H Creatinine 0.57 Estim Creat Clear Calc 79.1 Estimated GFR > 60 POC Glucose 93 96 Random Glucose 88 Calcium 8.5 Phosphorus 3.1 Magnesium 1.9 Albumin 2.8 L Discharge Plan Discharge Anticipated Discharge Date/Time: 09/20/24 11:09 Patient Disposition: Xfer SNF Discharge Diagnosis: Small bowel obstruction, ileus, AGUILAR, colitis Referrals: leslie garner [Other] - 1 Week Vito Joel MD [Primary Care Provider] - 1 Week Jesus Galaviz MD [Physician] - 1 Week Discharge Medications: New trazodone 50 mg Tablet 50 mg PO BEDTIME PRN (Reason: Insomnia) Qty: 30 0RF amlodipine 10 mg Tablet 10 mg PO DAILY Qty: 90 0RF Protocol: Hold for SBP< HOLD for SBP < : 90 furosemide [Lasix] 20 mg tablet 20 mg PO DAILY Qty: 30 0RF Continued atorvastatin 80 mg tablet 80 mg PO BEDTIME carbamazepine 200 mg tablet 200 mg PO BID aspirin 81 mg tablet,delayed release (DR/EC) 81 mg PO DAILY Discontinued lisinopril-hydrochlorothiazide 10-12.5 mg tablet 1 tab PO DAILY Discharge Orders: Discharge Order (Routine); Ordered 09/20/24 Ordered By: Kavon Burnham Diet: Advance to usual diet Activity on Discharge: No heavy lifting Stand Alone Forms: Patient Portal Discharge page Print Language: Syriac Activity Restrictions/Additional Instructions: If the incision area is tender, you may apply an ice pack for short intervals (No more than 20 minutes on, followed by at least 20 minutes off). Do not apply heat. Do not use creams, lotions, or topical antibiotics unless instructed to do so by your surgeon. These can cause infection or allergic reaction. Ok to shower. You have payton closing your incision and these will be removed approximately 10-14 days after surgery. No lifting greater than 10 lb for one-month. Continue to perform deep breathing exercises and ambulate daily. Call the office at [phone] to schedule a follow-up appointment in approximately 1 week. Call Your Doctor If: -Your temperature exceeds 101.5? F -You experience excessive pain or swelling -You have an unexpected reaction to medication -You have excessive bleeding -You experience continued vomiting/nausea -Your incision begins to separate -Your incision shows signs of infection such as increased redness, swelling, excessive pain, drainage (light blood or clear fluid is normal) or heat Care Plan Goals: recovery from small bowel obstruction that needed surgery and ileus Health Concerns: small bowel obstruction, ilues, colitis Plan of Treatment: shrot term rehab for recvoery from deconditioning from prolonged hosptilaztion Follow up with your primary provider for follow up outstadnign as documented in susan Assessment: see above Discharge Date/Time: 09/20/24 13:35
--- NOTE | 2024-09-20 08:54 | MHC.CLN ---
F/U IV OUT AND PPN DISCONTINUED 09/19. DIET ADVANCED TO REGULAR 09/19. INTAKE APPEARS TO BE AT LEAST 50% AT MEALS. CONTINUE TO FOLLOW FOR PO INTAKE AND DIET TOLERANCE.
[2024-09-20] MEDS: Furosemide 20 MG TABLET PO (09:20)
--- NOTE | 2024-09-20 10:05 | PM.PNGS ---
Subjective Subjective Date of Service: 09/20/24 <Lexi Walsh PA-C - Last Filed: 09/20/24 10:08> 09/20/24 <Jesus Galaviz MD - Last Filed: 09/20/24 10:14> Interval history: Overall feels much improved. Tolerating solid diet without nausea or vomiting. Passing flatus, has had numerous loose stools which are improving. <Lexi Walsh PA-C - Last Filed: 09/20/24 10:08> Physical Exam Vital Signs: Vital Signs: Last Vital Signs Temp 97.8 F 09/20/24 07:38 Pulse 74 09/20/24 07:38 Resp 18 09/20/24 07:38 BP 143/65 H 09/20/24 07:38 Pulse Ox 96 09/20/24 07:38 O2 Del Method Room Air 09/20/24 07:38 O2 Flow Rate 2 09/16/24 15:08 BMI result Body Mass Index 33.5 <Lexi Walsh PA-C - Last Filed: 09/20/24 10:08> Const: General: comfortable, no acute distress and alert <Lexi Walsh PA-C - Last Filed: 09/20/24 10:08> Orientation/consciousness: patient oriented x3 <Lexi Walsh PA-C - Last Filed: 09/20/24 10:08> Resp: Effort & Inspection: normal respiratory effort <Lexi Walsh PA-C - Last Filed: 09/20/24 10:08> GI: Inspection: Yes distended (mild) and Yes incision (clean) <Lexi Walsh PA-C - Last Filed: 09/20/24 10:08> Palpation (GI): Soft to palpation and nontender <Lexi Walsh PA-C - Last Filed: 09/20/24 10:08> Skin: General skin exam: no rashes or lesions noted <ATUL Delcid Last Filed: 09/20/24 10:08> Neuro: General: patient oriented x3 and moves all extremities <Lexi Walsh PA-C - Last Filed: 09/20/24 10:08> Objective Data Active Medications Acetaminophen (Acetaminophen 325 Mg Tablet) 650 mg PO Q6H PRN PRN Reason: Pain, Mild 1-3,fever,headache Last Admin: 09/12/24 23:49 Dose: 650 mg Documented By: JUSTUS Amlodipine Besylate (Amlodipine Besylate 10 Mg Tablet) 10 mg PO DAILY [facility]; Protocol Last Admin: 09/20/24 08:13 Dose: 10 mg Documented By: ARMAND Benzocaine (Throat Lozenge, Medicated Lozenge) 1 lozenge MUCOUS MEM Q2H PRN PRN Reason: Sore Throat Last Admin: 09/16/24 20:14 Dose: 1 lozenge Documented By: CAMILA Carbamazepine (Carbamazepine 200 Mg Tablet) 200 mg PO BID [facility] Last Admin: 09/20/24 08:13 Dose: 200 mg Documented By: ARMAND Enoxaparin Sodium (Enoxaparin Sodium 40 Mg/0.4 Ml Syringe) 40 mg SUBCUT Q24H [facility] Last Admin: 09/20/24 08:13 Dose: 40 mg Documented By: ARMAND Melatonin (Melatonin 3 Mg Tablet) 6 mg PO BEDTIME PRN PRN Reason: Insomnia Last Admin: 09/12/24 23:44 Dose: 6 mg Documented By: JUSTUS Metoclopramide HCl (Metoclopramide Hcl 10 Mg/2 Ml Vial) 10 mg IVPUSH Q6H PRN PRN Reason: Nausea Last Admin: 09/16/24 14:05 Dose: 10 mg Documented By: PALLAVI Multi-Ingred Medicated Throat [place] (Throat [place], Medicated 177 Ml Bottle) 1 spray MUCOUS MEM Q2H PRN PRN Reason: Sore Throat Ondansetron HCl (Ondansetron Hcl 4 Mg/2 Ml Vial) 4 mg IVPUSH Q8H PRN PRN Reason: Nausea and Vomiting Last Admin: 09/10/24 07:32 Dose: 4 mg Documented By: LUCIAME Sodium Chloride (0.9 % Sodium Chloride Flush 3 Ml Syringe) 3 ml IVFLUSH QSHIFT [facility] Last Admin: 09/20/24 08:05 Dose: Not Given Documented By: ARMAND Non-Admin Reason: No Access Trazodone HCl (Trazodone Hcl 50 Mg Tablet) 50 mg PO BEDTIME PRN PRN Reason: Insomnia Last Admin: 09/13/24 21:24 Dose: 50 mg Documented By: JUSTUS <Lexi Walsh PA-C - Last Filed: 09/20/24 10:08> Labs CBC & Chem 7: 09/14/24 05:35 09/20/24 05:54 <Lexi Walsh PA-C - Last Filed: 09/20/24 10:08> Labs: Laboratory Results - last 24 hr 09/19/24 09/19/24 09/19/24 11:08 17:16 19:59 Anion Gap Estim Creat Clear Calc Estimated GFR POC Glucose 138 H 107 130 H Random Glucose Calcium Phosphorus Magnesium Albumin 09/20/24 09/20/24 09/20/24 00:23 05:54 06:01 Anion Gap 10 L Estim Creat Clear Calc 79.1 Estimated GFR > 60 POC Glucose 93 96 Random Glucose 88 Calcium 8.5 Phosphorus 3.1 Magnesium 1.9 Albumin 2.8 L <Lexi Walsh PA-C - Last Filed: 09/20/24 10:08> Procedures Date of Service Date of Service: 09/20/24 <Lexi Walsh PA-C - Last Filed: 09/20/24 10:08> 09/20/24 <Jesus Galaviz MD - Last Filed: 09/20/24 10:14> Progress Note: A&P Assessment and plan (1) Status post exploratory laparotomy: Status: Acute <Lexi Walsh PA-C - Last Filed: 09/20/24 10:08> (2) Small bowel obstruction: Status: Acute <Lexi Walsh PA-C - Last Filed: 09/20/24 10:08> Assessment and Plan: 84-year-old female patient presenting with small-bowel obstruction status post small bowel resection, lysis of adhesions. Patient now much improved, tolerating solid diet with good GI function. Abd remains benign with clean incision. Stable for dc from surgical aspect. Can f/u in office in 1 week for staple removal. Patient comfortable with plan. <Lexi Walsh PA-C - Last Filed: 09/20/24 10:08> 84-year-old female patient presenting with small-bowel obstruction status post small bowel resection, lysis of adhesions. Patient now much improved, tolerating solid diet with good GI function. Abd remains benign with clean incision. Stable for dc from surgical aspect. Can f/u in office in 1 week for staple removal. Patient comfortable with plan. Agree with the above assessment and plan; clear for discharge from surgical standpoint. <Jesus Galaviz MD - Last Filed: 09/20/24 10:14> Time Spent With Patient Time: Total time managing care of this patient today ____ minutes. <Lexi Walsh PA-C - Last Filed: 09/20/24 10:08> Quality Stroke Does the patient have a stroke diagnosis?: No <Lexi Walsh PA-C - Last Filed: 09/20/24 10:08> VTE Prior VTE?: No <Lexi Walsh PA-C - Last Filed: 09/20/24 10:08> VTE Risk Level:: Medical - moderate - high <Lexi Walsh PA-C - Last Filed: 09/20/24 10:08> VTE Device Contraindication: N/A - Device Ordered <Lexi Walsh PA-C - Last Filed: 09/20/24 10:08> VTE Drug Contraindication: Treatment Not Indicated <Lexi Walsh PA-C - Last Filed: 09/20/24 10:08>
--- NOTE | 2024-09-20 11:04 | MHC.CM.PN ---
pt to be dcd today at 1 to [facility] for her 7 free days
[2024-09-20 11:35] LABS: CDiff Gene PCR NEGATIVE (Negative)
[2024-09-20 11:50] VITALS: BP 131/58; PULSE 77; RESP 18; TEMP 36.6; O2SAT 96
[2024-09-20 12:36] LABS: Glucose, Whole Blood 105 mg/dL (60-115)
== END 2024-09-20 13:35 | disposition skilled nursing facility (03) | DRG 329 ==
LOC: HO.ED 19:53 → HO.EDOVER 20:41 → HO.IMC 09-08 07:32 → HO.EDOVER 09-08 07:35 → HO.S3 09-08 08:15
PROVIDERS: Hospitalist; Physician Assistant Medical; Surgery; Admitting Provider Student in an Organized Health Care Education/Training Program; Emergency Provider Emergency Medicine; PCP Internal Medicine; Visit Provider Internal Medicine
PROC: 0DB80ZZ Excision of Small Intestine, Open Approach (ICD-10-PCS; CPT 49000; principal; 2024-09-10 15:30)
DX: K56.50 Intestinal adhesions [bands], unspecified as to partial versus complete obstruction (principal); N17.0 Acute kidney failure with tubular necrosis; K55.9 Vascular disorder of intestine, unspecified; G40.909 Epilepsy, unspecified, not intractable, without status epilepticus; E78.5 Hyperlipidemia, unspecified; K52.3 Indeterminate colitis; K74.69 Other cirrhosis of liver; T50.8X5A Adverse effect of diagnostic agents, initial encounter; E87.6 Hypokalemia; M54.59 Other low back pain; Q43.0 Meckel's diverticulum (displaced) (hypertrophic); G89.29 Other chronic pain; G62.9 Polyneuropathy, unspecified; K59.00 Constipation, unspecified; K56.7 Ileus, unspecified; E11.42 Type 2 diabetes mellitus with diabetic polyneuropathy; Z66 Do not resuscitate; Z20.822 Contact with and (suspected) exposure to COVID-19; Z79.82 Long term (current) use of aspirin; Z79.899 Other long term (current) drug therapy
CPT/HCPCS: 0241U; 36415; 71045; 74018; 74177; 74250; 80048; 80051; 80053; 81001; 82040; 82947; 83735; 84100; 84478; 84484; 85007; 85027; 87493; 88307; 93005; 97162; 99285; J0131; J0696; J0737; J1100; J1644; J1650; J1836; J2003; J2270; J2405; J2470; J2765; J3010; J3480; J7120; Q9967

== ENCOUNTER → 2024-09-06 15:25 | Outpatient (BNV) | payer OTHER, SELFPAY | PROVIDERS: Emergency Provider Emergency Medicine; PCP Internal Medicine; Visit Provider Nuclear Medicine | DX: K56.609 Unspecified intestinal obstruction, unspecified as to partial versus complete obstruction (principal); R18.8 Other ascites; Z97.8 Presence of other specified devices | CPT/HCPCS: 71045; 74177 ==

== ENCOUNTER 2024-09-06 20:29 | Outpatient (BNV) | payer OTHER, SELFPAY | END 2024-09-09 06:00 | PROVIDERS: Admitting Provider Student in an Organized Health Care Education/Training Program; Emergency Provider Emergency Medicine; PCP Internal Medicine; Visit Provider Radiology Vascular & Interventional Radiology | DX: K56.609 Unspecified intestinal obstruction, unspecified as to partial versus complete obstruction (principal) | CPT/HCPCS: 74018 ==

== ENCOUNTER 2024-09-06 20:29 | Outpatient (BNV) | payer OTHER, SELFPAY | END 2024-09-07 18:36 | PROVIDERS: Admitting Provider Student in an Organized Health Care Education/Training Program; Emergency Provider Emergency Medicine; PCP Internal Medicine; Visit Provider Internal Medicine Cardiovascular Disease | DX: R94.31 Abnormal electrocardiogram [ECG] [EKG] (principal); R07.9 Chest pain, unspecified | CPT/HCPCS: 93010 ==

== ENCOUNTER 2024-09-06 20:29 | Outpatient (BNV) | payer OTHER, SELFPAY | END 2024-09-13 22:10 | PROVIDERS: Admitting Provider Student in an Organized Health Care Education/Training Program; Emergency Provider Emergency Medicine; PCP Internal Medicine; Visit Provider Radiology Diagnostic Radiology | DX: Z46.82 Encounter for fitting and adjustment of non-vascular catheter (principal) | CPT/HCPCS: 71045 ==

== ENCOUNTER 2024-09-06 20:29 | Outpatient (BNV) | payer OTHER, SELFPAY | END 2024-09-07 20:35 | PROVIDERS: Admitting Provider Student in an Organized Health Care Education/Training Program; Emergency Provider Emergency Medicine; PCP Internal Medicine; Visit Provider Radiology Diagnostic Radiology | DX: K56.609 Unspecified intestinal obstruction, unspecified as to partial versus complete obstruction (principal); Z93.1 Gastrostomy status | CPT/HCPCS: 71045 ==

== ENCOUNTER 2024-09-06 20:29 | Outpatient (BNV) | payer OTHER, SELFPAY | END 2024-09-08 08:50 | PROVIDERS: Admitting Provider Student in an Organized Health Care Education/Training Program; Emergency Provider Emergency Medicine; PCP Internal Medicine; Visit Provider Radiology Diagnostic Radiology | DX: K59.00 Constipation, unspecified (principal) | CPT/HCPCS: 74018; 74250 ==

== ENCOUNTER 2024-09-06 20:29 | Outpatient (BNV) | payer OTHER, SELFPAY | END 2024-09-10 09:00 | PROVIDERS: Admitting Provider Student in an Organized Health Care Education/Training Program; Emergency Provider Emergency Medicine; PCP Internal Medicine; Visit Provider Radiology Diagnostic Radiology | DX: K56.609 Unspecified intestinal obstruction, unspecified as to partial versus complete obstruction (principal) | CPT/HCPCS: 74018 ==

== ENCOUNTER → 2024-09-06 20:29 | Outpatient (BNV) | payer OTHER, SELFPAY | PROVIDERS: Admitting Provider Student in an Organized Health Care Education/Training Program; Emergency Provider Emergency Medicine; PCP Internal Medicine; Visit Provider Surgery | DX: K56.609 Unspecified intestinal obstruction, unspecified as to partial versus complete obstruction (principal); K56.7 Ileus, unspecified; R10.84 Generalized abdominal pain | CPT/HCPCS: 99222 ==

== ENCOUNTER → 2024-09-06 20:29 | Outpatient (BNV) | payer OTHER, SELFPAY | PROVIDERS: Admitting Provider Student in an Organized Health Care Education/Training Program; Emergency Provider Emergency Medicine; PCP Internal Medicine; Visit Provider Internal Medicine | DX: N17.9 Acute kidney failure, unspecified (principal); K56.609 Unspecified intestinal obstruction, unspecified as to partial versus complete obstruction | CPT/HCPCS: 99223; 99232; 99233; 99499 ==

== ENCOUNTER → 2024-09-06 20:29 | Outpatient (BNV) | payer OTHER, SELFPAY | PROVIDERS: Admitting Provider Student in an Organized Health Care Education/Training Program; Emergency Provider Emergency Medicine; PCP Internal Medicine; Visit Provider Internal Medicine Nephrology | DX: N17.0 Acute kidney failure with tubular necrosis (principal) | CPT/HCPCS: 99222; 99232 ==

== ENCOUNTER 2024-10-12 09:52 | Outpatient (AMB) | payer OTHER, SELFPAY ==
--- NOTE | 2024-10-12 09:55 | A.OFFVIS_ITS ---
Vital Signs 10/12/24 10:04 Height 5 ft 5 in Weight 173 lb BMI 28.8 BP 172/82 H Blood Pressure Location Lt brachial Position Sitting Pulse 97 Intake Visit Reasons: s/p exp lap & small-bowel resection Intake Note: Patient is seen in office for post op assessment post exploratory laparotomy and small-bowel resection with anastomosis. Pt c/o: admits to sore, still feels very tired, incision is looking good surgery:09/10/24 (John) [employer] Required: No Accompanied by: Self / Same As Patient Allergies No Known Allergies Allergy (Verified 10/12/24 10:03) HPI Comments Details: 84-year-old female patient presenting with evidence of small-bowel obstruction admitted on 09/07/2024 and initially treated non operatively with nasogastric tube decompression. The patient failed nonoperative management and on 09/10/2024 underwent exploratory laparotomy, lysis of adhesions and small-bowel resection. She had a prolonged hospital course with multiple medical issues including acute kidney injury, possible inflammatory bowel disease, liver cirrhosis and elevated troponin. After approximately 1 week postoperatively she began to pass gas and move her bowels. After she was able to tolerate a diet she was discharged to short-term rehab due to physical deconditioning from a prolonged hospitalization. She returns today for postop wound check. She is still fatigued following her prolonged hospitalization but is eating well and denies any difficulty with the bowels. She does take Dulcolax daily. [facility]LY [facility] Medical History Lumbar spondylosis Autonomic neuropathy due to type 2 diabetes mellitus History of seizure disorder Intermittent spinal claudication Neuropathy Localization-related (focal) (partial) symptomatic epilepsy and epileptic syndromes with simple partial seizures, not intractable, without status epilepticus Hypercholesteremia Essential hypertension Endometrial cancer Surgical History Hx of exploratory laparotomy (09/10/24) History of hysterectomy with bilateral oophorectomy Social History Household Members: None Housing: [facility]isted Living Facility Housing Other:: [facility] Do you presently have visiting nurse or other home services: No Alcohol intake: current Alcohol intake frequency: holidays/special occasions only Patient Tobacco Use Status: Never used Tobacco service: No Current occupational status: retired Physical Exam Vital Signs: Last Vital Signs Temp 97.8 F 09/20/24 07:38 Pulse 74 09/20/24 07:38 Resp 18 09/20/24 07:38 BP 143/65 H 09/20/24 07:38 Pulse Ox 96 09/20/24 07:38 O2 Del Method Room Air 09/20/24 07:38 O2 Flow Rate 2 09/16/24 15:08 BMI result Body Mass Index 33.5 Const General: comfortable, no acute distress and alert Orientation/consciousness: patient oriented x3 Resp Effort & Inspection: normal respiratory effort GI Inspection: Yes incision (clean, dry, and intact without hernias) Palpation (GI): Soft to palpation and nontender Skin General skin exam: no rashes or lesions noted Neuro General: patient oriented x3 and moves all extremities Assessment & Plan Assessment & Plan (1) Small bowel obstruction: Code(s): K56.609 - Unspecified intestinal obstruction, unspecified as to partial versus complete obstruction Category: Medical (2) Status post exploratory laparotomy: Code(s): Z98.890 - Other specified postprocedural states Category: Surgical Plan 84-year-old female patient status post exploratory laparotomy and small-bowel resection for small-bowel obstruction. Postoperatively she had a prolonged h ospitalization became physically deconditioned. She subsequently was discharged to a short-term rehab facility. She is now home at [place] but still feels tired. Examination today reveals her incisions to be well healed without evidence of infection or hernia. She may resume normal activity without restrictions. She should follow up as needed. Coding Level of Care Code Global (07806) Diagnoses Small bowel obstruction K56.609 Status post exploratory laparotomy Z98.890
[2024-10-12 10:04] VITALS: BP 172/82; PULSE 97; BMI 28.8
--- OUTSIDE RECORDS SUMMARY | 2024-10-12 11:18 | XMS_ITS | Data Portability ---
Author Organization [facility] Access Scientific [facility], Main Office Address [address], [address] [place] [address] Care Team Providers Care Patient Relations Specialist Name Role Phone GENOVEVA LIMAS [place] OTHER Assessment Encounter Date Assessment Date Assessment LastModified by Organization Details LastModified Time 10/02/2024 10/02/2024 45 minutes spent on coordination of discharge. [email or web address] Not available 10/02/2024 09:59:54 Plan of Treatment Reminders Order Date Submit Date Provider Last Modified By Organization Details Last Modified Time Details Appointments None record ed. Lab None record ed. Referral None record ed. Procedures None record ed. Surgeries None record ed. Imaging None record ed. Medication Orders None record ed. Patient TargetsNo targets recorded. Patient InstructionsNo instructions recorded. Reason for Referral None Reported. Problems Name Problem SNOMED Code Status Onset Date Resolution Date Notes Provider Name and Address Organization Details Recorded Time Small bowel obstruction 601934412 Active 2024 s/p exp. lap. SWETHA HINOJOSA NP [address] [facility], [address], [place], [address], [facility] 5 10:45:26 Inflammator y bowel disease 03115997 Active 2024 SWETHA HINOJOSA NP [address] [facility] [facility], [address], [place], [address], [facility] 5 10:45:49 Imaging of liver abnormal 102336742 Active 2024 SWETHA HINOJOSA NP [address] [facility], [address], [place], [address], [facility] 5 10:46:01 Asthenia 64555607 Active 2024 SWETHA HINOJOSA NP [address] [facility], [address], [place], [address], [facility] 5 10:46:07 Acute nontraumati c kidney injury 8383215850472 03 Active 2024 SWETHA HINOJOSA NP [address], [address], [place], [address], [facility] 5 10:46:20 Hypertensiv e disorder 57700297 Active 2024 SWETHA HINOJOSA NP [address], [address], [place], [address], [facility] 5 10:46:49 Hyperlipide ray 98741914 Active 2024 SWETHA HINOJOSA NP [address], [address], [place], [address], [facility] 5 10:46:57 Peripheral nerve disease 626274530 Active 2024 SWETHA HINOJOSA NP [address], [address], [place], [address], [facility] 5 10:47:10 Seizure disorder 008408455 Active 2024 SWETHA HINOJOSA NP [address], [address], [place], [address], [facility] 5 10:47:21 Chronic low back pain 419155822 Active 2024 SWETHA HINOJOSA NP [address] [facility], [address], [place], [address], [facility] 5 10:47:33 Endometrial carcinoma 509561275 Active 2024 h/o, s/p YVONNE BSO SWETHA HINOJOSA NP [address], [address], [place], [address], [facility] 5 10:48:17 Problem Notes None recorded. Medical Equipment None Reported. Allergies No known drug allergies Medications Not known to be on any medication Vitals Date Recorded Heart rate Respiratory rate Body temperature Oxygen saturation Oxygen saturation in Arterial blood by Pulse oximetry Systolic blood pressure Diastolic blood pressure Provider Name and Address Organization Details Last Updated DateTime 5 75 /min 16 /min 97.6 [degF] 96 % 96 % 119 mm[Hg] 56 mm[Hg] SWETHA HINOJOSA NP [address] [facility], [address], [place], [address], [facility] 5 13:03:28 Date Recorded Heart rate Respiratory rate Body temperature Oxygen saturation Oxygen saturation in Arterial blood by Pulse oximetry Systolic blood pressure Diastolic blood pressure Provider Name and Address Organization Details Last Updated DateTime 5 80 /min 18 /min 97.4 [degF] 97 % 97 % 152 mm[Hg] 75 mm[Hg] SWETHA HINOJOSA NP [address] [facility], [address], [place], [address], [facility] 5 10:32:33 Date Recorded Heart rate Respiratory rate Oxygen saturation Oxygen saturation in Arterial blood by Pulse oximetry Body temperature Systolic blood pressure Diastolic blood pressure Provider Name and Address Organization Details Last Updated DateTime 5 81 /min 16 /min 96 % 96 % 97.5 [degF] 135 mm[Hg] 62 mm[Hg] SWETHA HINOJOSA NP [address] [facility], [address], [place], [address], [facility] 5 09:42:44 Social History Question Answer Notes LastModified by Organizat ion Details LastModified Time Tobacco Smoking Status Never Smoker SWETHA HINOJOSA NP [address] [facility], [address], [place], [address], [facility] 09/22/2024 09:43:54 What Is Your Level Of Alcohol Consumption? Occasional [email or web address] Information not available 09/22/2024 What Is Your Code Status? DNR/DNI No Artificial Hydration Information not available 09/22/2024 Where Do You Live? Apartment [address] [place] [email or web address] Information not available 09/22/2024 What Was The Date Of Your Most Recent Tobacco Screening? 09/22/2024 [email or web address] Information not available 09/22/2024 Do You Have An Out Of Hospital DNR? Yes [email or web address] Information not available 09/22/2024 Have You Ever Been Counseled For Unhealthy Alcohol Use? No [email or web address] Information not available 09/22/2024 Do You Use Any Illicit Or Recreational Drugs? No [email or web address] Information not available 09/22/2024 Has Tobacco Cessation Counseling Been Provided? No [email or web address] Information not available 09/22/2024 Do You Or Have You Ever Used Any Other Forms Of Tobacco Or Nicotine? No [email or web address] Information not available 09/22/2024 Sex: Unknown Functional Status None recorded. Mental Status None recorded. Family History Relationship Description Onset Age of this Age Resolved Age Notes LastModified by Organization Details LastModified Time Father No current problems or disability [email or web address] Not available 09/22 09:53:24 Mother No current problems or disability [email or web address] Not available 09/22 09:53:24 Notes:N/C Medical History No medical history recorded. Gynecological HistoryNo gynecological history recorded. Obstetrics History GPAL:G 0 P 0 0 0 0 Immunizations Vaccine Type Date Status Note Provider Nam e and Address Organization Details Recorded Time Respiratory syncytial virus (RSV) MAB, unspecified 4 completed [facility] 09/22/2024 13:20:54 Td(adult) unspecified formulation 8 completed [facility] 09/22/2024 13:21:05 pneumococcal polysaccharide PPV23 9 completed [facility] 09/22/2024 13:21:18 influenza, unspecified formulation 0 completed [facility] 09/22/2024 13:21:45 influenza, unspecified formulation 1 completed [facility] 09/22/2024 13:21:56 influenza, unspecified formulation 2 completed [facility] 09/22/2024 13:22:02 influenza, unspecified formulation 3 completed [facility] 09/22/2024 13:22:07 SARS-COV-2 (COVID-19) vaccine, UNSPECIFIED 1 completed [facility] 09/22/2024 13:22:22 SARS-COV-2 (COVID-19) vaccine, UNSPECIFIED 1 completed Elmer Pedraza null, [facility] 09/22/2024 13:22:27 SARS-COV-2 (COVID-19) vaccine, UNSPECIFIED 1 completed Elmer Pedraza null, [facility] 09/22/2024 13:22:31 SARS-COV-2 (COVID-19) vaccine, UNSPECIFIED 2 completed Elmer Pedraza [facility], [facility] 09/22/2024 13:22:37 SARS-COV-2 (COVID-19) vaccine, UNSPECIFIED 2 completed Elmer [facility], [facility] 09/22/2024 13:22:42 SARS-COV-2 (COVID-19) vaccine, UNSPECIFIED 3 completed Elmer Pedraza [facility] 09/22/2024 13:22:47 SARS-COV-2 (COVID-19) vaccine, UNSPECIFIED 3 completed Elmer Pedraza [facility] 09/22/2024 13:22:53 zoster, unspecified formulation 8 completed [facility] 09/22/2024 13:23:07 zoster, unspecified formulation 8 completed [facility] 09/22/2024 13:23:12 Past Encounters Encounter ID Performer Location Encounter Start Date Encounter Closed Date Diagnosis/Indication Diagnosis SNOMED-CT Code Diagnosis ICD10 Code Diagnosis Note [id number] SWETHA HINOJOSA NP [place] [address] [place] [address] 09/22/2024 08:39:18 09/25/2024 16:16:37 Asthenia [id number] R53.1 Deconditio ross due to acute illness and hospitaliz ationPT OT eval and tx.Goal is to return home, monitor for increased needs/serv ices Small faby l obstruction [id number] K56.609 Presented to [facility] with N/V/D and abd. painFailed conservati ve treatmentU nderwent exp. lap, willam. wellPost op complicati on of prolonged ileus, required PPNNow tolerating regular dietContin ue to monitor po, bowel status closelyTre nd labs, VS, pain, s/s blockage, incisionFo llow up with surgery as sched. Inflammato ry bowel disease 47666592 K52.9 Noted on abd. CTTreated with rocephin and flagylMoni tor GI sx, VS, labsFollow up with GI outpt. Imaging of liver abnormal 480884290 R93.2 Noted on abd. CTMonitor GI statusRefe r to GI as outpt. Acute nont raumatic kidney injury 7470545456 81259 N17.9 Stopped HCTZ/HIPOLITO IResponded well to IVFMonitor labsEncour age po fluidsAvoi d nephrotoxi cs Hypertensive disorder 38 254621 I10 HCTZ/ACEI stopped due to AKINow on norvasc 10 mg qd as well as lasix 20 mg qdMonitor VS, labs, adjust prn Hyperlipidemia 10485124 E78.5 Continue atorvastat in 80 mg qd Peripheral nerve disease 384482463 G64 APAP prn monitor Seizure disorder 1496800 02 G40.909 Continue carbamazep selma 200 mg bidMonitor sz. activity Chronic low back pain 27 7074599 M54.50 APAP prn Insomnia 774908641 G47.0 9 ?Trazodone 50 mg qd prn x 14 d on d/c med listWill continue for now, monitor use and effect. [id number] SWETHA HINOJOSA NP [place] [address] [place] [address] 09/25/2024 09:05:12 09/27/2024 13:52:55 Asthenia [id number] R53.1 Deconditio ross due to acute illness and hospitaliz ationPT OT eval and tx.Goal is to return home, monitor for increased needs/serv ices Small faby l obstruction [id number] K56.609 Presented to [facility] with N/V/D and abd. painFailed conservati ve treatmentU nderwent exp. lap, willam. wellPost op complicati on of prolonged ileus, required PPN Now tolerating regular diet, good appetiteMo ving bowels, monitor closelyTre nd labs, VS, pain, s/s blockage, incisionFo llow up with surgery as sched.CBC, BMP in am Inflammato ry bowel disease 86875273 K52.9 Noted on abd. CTTreated with rocephin and flagylMoni tor GI sx, VS, labsFollow up with GI outpt. Imaging of liver abnormal 793466049 R93.2 Noted on abd. CTMonitor GI statusRefe r to GI as outpt. Acute nont raumatic kidney injury 7961404057 56701 N17.9 Stopped HCTZ/HIPOLITO IResponded well to IVFMonitor labs - BMP in amEncourag e po fluidsAvoi d nephrotoxi cs Hypertensive disorder 38 966933 I10 VSSHCTZ/AC EI stopped due to AKINow on norvasc 10 mg qd as well as lasix 20 mg qdMonitor VS, labs, adjust prnBMP in am Hyperlipidemia 92658035 E78.5 Continue atorvastat in 80 mg qd Peripheral nerve disease 196723463 G64 APAP prn monitor Seizure disorder 7269159 02 G40.909 Continue carbamazep selma 200 mg bidMonitor sz. activity Chronic low back pain 27 1417209 M54.50 APAP prn Insomnia 051815370 G47.0 9 ?Trazodone 50 mg qd prn x 14 d on d/c med listWill continue for now, monitor use and effect. [id number] SWETHA HINOJOSA NP [place] [address] [place] [address] 09/27/2024 10:30:52 10/02/2024 16:03:03 Asthenia [id number] R53.1 Deconditio ross due to acute illness and hospitaliz ationPT OT eval and tx., making gains, hopeful to return home for increased needs/serv ices Small faby l obstruction 165716101 K56.609 Presented to [facility] with N/V/D and abd. painFailed conservati ve treatmentU nderwent exp. lap, willam. wellPost op complicati on of prolonged ileus, required PPN Now tolerating regular diet, good appetiteMo ving bowels, monitor closelyTre nd labs, VS, pain, s/s blockage, incisionFo llow up with surgery as sched. 10/12 Inflammato ry bowel disease 66999869 K52.9 Noted on abd. CTTreated with rocephin and flagylMoni tor GI sx, VS, labsFollow up with GI outpt. Imaging of liver abnormal 257623197 R93.2 Noted on abd. CTMonitor GI statusRefe r to GI as outpt. Acute nont raumatic kidney injury 0171128634 04349 N17.9 Stopped HCTZ/HIPOLITO IResponded well to IVFLabs currently stable, but will be increasing lasix due to increased peripheral edemaMaint ain po fluidsAvoi d nephrotoxi csBMP wednesday Hypertensive disorder 38 757496 I10 VSSHCTZ/AC EI stopped due to AKINow on norvasc 10 mg qd as well as lasix 20 mg qd (increasin g to 40 mg qd due to worsening edema)Kiesha tor VS, labs, adjust prnBMP Wednesday Hyperlipidemia 10926430 E78.5 Continue atorvastat in 80 mg qd Peripheral nerve disease 813680206 G64 APAP prn monitor Seizure disorder 2359273 02 G40.909 Continue carbamazep selma 200 mg bidMonitor sz. activity Chronic low back pain 27 5392159 M54.50 APAP prn Insomnia 304537729 G47.0 9 ?Trazodone 50 mg qd prn x 14 d on d/c med Mary continue for now, monitor use and effect. Edema of l ower extremity 043312150 R60.0 Newer, increasing , no pain.Spend ing more time OOBMeds reviewed, is on lasix 20 mg qd as well as norvasc 10 mg qd (both new, was on HCTZ/ACEI prior to hosp. but stopped due to AGUILAR) Plan -Encourage :Elevation Protein intakeActi vityAdd tubigrip toes -> knees qam, off qpmIncreas e lasix to 40 mg qdBMP wednesday (as planning Wed. d/c) [id number] Yusuf Awad MD [place] [address] [place] [address] 09/30/2024 09:00:49 10/02/2024 16:09:53 Asthenia [id number] R53.1 PT OT Eval and treatmonit or fall risk and need for increased support in community Edema of l ower extremity 255351699 R60.0 now on lasix 20 mg qdmonitor sx control and renal function with recent ARFmay decreased or DC norvasc if not improved Small faby l obstruction 213891386 K56.690 see HPIs/p exp lap complicate d by ileusfollo w surgery recs and update for concernsmo nitor out put and need to adjust diet Inflammato ry bowel disease 73133142 K51.818 carrying dx of IBScovered with rocephin and flagyl in hospitalco ordinate with GImonitor sx Imaging of liver abnormal 983970499 R93.2 concern for cirrhosisf /u with GI in place Acute nont raumatic kidney injury 5150398086 14539 N17.8 HCTZ and HIPOLITO-I d/c'edimpr milana with IVFmonitor renal function now on lasix Hypertensive disorder 38 506083 I10 see abovemonit or bp and need to titrate now on norvasc and lasix Peripheral nerve disease 699319890 G64 carrying dx added to PMHmonitor need for gabapentin Seizure disorder 5281694 02 G40.89 carbamazep ine 200 mg bidmonitor for seizure activity Chronic low back pain 27 4774281 M54.59 controlled with tylenol [id number] SWETHA HINOJOSA NP [place] [address] [facility] [place] [place] [address] 10/02/2024 08:55:20 10/09/2024 09:55:31 Asthenia [id number] R53.1 Deconditio ross due to acute illness and hospitaliz ation.She has been working with PT OT - meeting goals for d/c home today with services.M onitor need for increased services Edema of l ower extremity 068953272 R60.0 Newer issue while here.Spend ing more time OOBMeds had been adjusted in the hospital - HCTZ/ACEI stopped due to AGUILAR, and started lasix 20 mg qd as well as norvasc 10 mg qd for BP controlExt ra lasix given (dose increased to 40 mg qd) and KCL added for K 3.2 Plan -As edema improved, will reduce lasix back to 20 mg qd and stop KClContinu e to encourage: ElevationP rotein intakeActi vityTubigr ip toes -> knees qam, off qpm Small faby l obstruction 578762666 K56.609 Presented to [facility] with N/V/D and abd. painFailed conservati ve treatmentU nderwent exp. lap, willam. wellPost op complicati on of prolonged ileus, required PPN Now tolerating regular diet, good appetiteMo ving bowels, monitor closelySta ples out, incision healing well.Trend labs, VS, pain, s/s blockage, incisionFo llow up with surgery as sched. 10/12 Inflammato ry bowel disease 35590528 K52.9 Noted on abd. CTTreated with rocephin and flagylNo GI concerns while hereMonito r GI sx, VS, labs as outptFollo w up with GI outpt. Imaging of liver abnormal 096751955 R93.2 Noted on abd. CTMonitor GI statusRefe r to GI as outpt. Acute nont raumatic kidney injury 2824914835 44485 N17.9 Stopped HCTZ/HIPOLITO IResponded well to IVFCurrent ly on Lasix 20 mg qdLabs stableMain tain po fluidsAvoi d nephrotoxi csMonitor labs outpt. Hypertensive disorder 38 506037 I10 VSSHCTZ/AC EI stopped in hosp. due to AKIStarted norvasc 10 mg qd as well as lasix 20 mg qdMonitor VS, labs as outpt., adjust prn Hyperlipidemia 99948908 E78.5 Continue atorvastat in 80 mg qd Peripheral nerve disease 597959752 G64 APAP prn monitor Seizure disorder 2201421 02 G40.909 Continue carbamazep selma 200 mg bidMonitor sz. activity as outpt. Chronic low back pain 27 4614481 M54.50 APAP prn Insomnia 479538250 G47.0 9 ?Trazodone 50 mg qd prn x 14 d on d/c med list but has not used here so will stop this med upon discharge home. Health Concerns Section Related Observation LastModified by Organization Detai ls LastModified Time None Recorded Concern Status LastModified by Organization Details LastModified Time None Recorded Advance Directives Directive None Recorded Payers Encounter Date Sequence Insurance Name Policy Number Policy Kelly Covered Member ID Kelly Member ID Guarantor Name 09/22/2024 1 [facility] (PPO) [id number] Maria Ines Kam [id number] Maria Ines Kam 09/25/2024 1 [employer] (PPO) [id number] Maria Ines Kam [id number] Maria Ines Kam 09/27/2024 1 [employer] (PPO) [id number] Maria Ines Kam [id number] Maria Ines Kam 09/30/2024 1 [employer] (PP[employer]) [id number] Maria Ines Kam [id number] Maria Ines Kam 10/02/2024 1 [employer] (PP[employer]) [id number] Maria Ines Kam [id number] Maria Ines Kam Notes Date Note Type Note Provider Name and Address Organization Details Recorded Time 09/22/2024 text/html Maria Ines is seen to day for initial intake. She is an 84 yo lady, admitted to [facility] 09/20/24 from [facility] for continued care and rehab after a brief hosp. due to SBO, ileus, AGUILAR. She presented to [facility] 09/06 with N/V/D and abdominal pain.In ER, wbc 19.6.Abd. CT concerning for SBO vs. ileus as well as possible inflammatory bowel disease, nodular thickening of liver surface (? cirrhosis) with small ascites.Initially managed conservatively and followed by surgery.Started ceftriaxone and flagyl x 9 days for colitis and leukocytosis.Developed AGUILAR (Cr. 0.63 -> 2.6). HCTZ/HIPOLITO I stopped, seen by Renal, responded well to IVF.Due to poor response to conservative interventions, she underwent small bowel surgery (exploratory lap). Tolerated well, but experienced prolonged periods of ileus requiring PPN. Diet eventually able to be advanced and she continued to improve.Stay complicated by hypokalemia, replaced.Statin stopped due to ? cirrhosis. Recommended to follow up with GI outpt. for eval of IBD and liver changes noted on CT.HTN - as above, HCTZ/HIPOLITO I stopped due to AGUILAR. Norvasc 10 mg qd added for BP control, and eventually added lasix 20 mg qd. Upon exam, Maria Ines is in bed, eating breakfast. Overall she is feeling good, eating breakfast, no GI complaints this am. Bowels a bit sluggish, but is passing gas. Voiding ok. Slept well, no dizziness, weakness, SOB, CP. No back pain at present.VSSLabs pendingNo concerns per nsg. PMH: HLD, HTN, peripheral neuropathy, hx. endometrial cancer, CLBP due to spinal claudication, seizure disorder SWETHA HINOJOSA NP [address] [facility], [address], [place], [address], [employer] 09/22/2024 10:58:43 09/25/2024 text/html Maria Ines is seen to day for an acute visit. She is an 84 yo lady, admitted to [facility] 09/20/24 from [facility] for continued care and rehab after a brief hosp. due to SBO, ileus, AGUILAR. She presented to [facility] 09/06 with N/V/D and abdominal pain.Abd. CT concerning for SBO vs. ileus as well as possible inflammatory bowel disease, nodular thickening of liver surface (? cirrhosis) with small ascites.Initially managed conservatively and followed by surgery.Started ceftriaxone and flagyl x 9 days for colitis and leukocytosis.Developed AGUILAR (Cr. 0.63 -> 2.6). HCTZ/HIPOLITO I stopped, seen by Renal, responded well to IVF.Due to poor response to conservative interventions, she underwent small bowel surgery (exploratory lap). Tolerated well, but experienced prolonged periods of ileus requiring PPN. Diet eventually able to be advanced and she continued to improve.Stay complicated by hypokalemia, replaced.Statin stopped due to ? cirrhosis. Recommended to follow up with GI outpt. for eval of IBD and liver changes noted on CT.HTN - as above, HCTZ/HIPOLITO I stopped due to AGUILAR. Norvasc 10 mg qd added for BP control, and eventually added lasix 20 mg qd. Upon exam, Maria Ines is up in a chair, just finished breakfast. Feeling good, working with rehab, stronger, no GI complaints, appetite good.[facility] 09/22No concerns per nsg. PMH: HLD, HTN, peripheral neuropathy, hx. 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 She is an 84 yo lady, admitted to [facility] 09/20/24 from [facility] for continued care and rehab after a brief hosp. due to SBO, ileus, AGUILAR. She presented to [facility] 09/06 with N/V/D and abdominal pain.Abd. CT concerning for SBO vs. ileus as well as possible inflammatory bowel disease, nodular thickening of liver surface (? cirrhosis) with small ascites.Initially managed conservatively and followed by surgery.Started ceftriaxone and flagyl x 9 days for colitis and leukocytosis.Developed AGUILAR (Cr. 0.63 -> 2.6). HCTZ/HIPOLITO I stopped, seen by Renal, responded well to IVF.Due to poor response to conservative interventions, she underwent small bowel surgery (exploratory lap). Tolerated well, but experienced prolonged periods of ileus requiring PPN. Diet eventually able to be advanced and she continued to improve.Stay complicated by hypokalemia, replaced.Statin stopped due to ? cirrhosis. Recommended to follow up with GI outpt. for eval of IBD and liver changes noted on CT.HTN - as above, HCTZ/HIPOLITO I stopped due to AGUILAR. Norvasc 10 mg qd added for BP control, and eventually added lasix 20 mg qd. Upon exam, Maria Ines is up in a chair, just finished breakfast. Continues to feel good. Denies pain, appetite good, moving bowels, passing water.Progressing with rehab, mentions she will be going home next Wednesday which she is happy about. Her only complaint is leg edema, newer issue since the hospital, usually doesn't have leg swelling. Not painful, but uncomfortable.[facility] 09/26 stable.No concerns per nsg. PMH: HLD, HTN, peripheral neuropathy, hx. 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 Imaging concerning for SBO vs ileus. Eval by surgery and initially treated conservatively. Covered with rocephin and flagyl. Noted ARF, eval by nephro. HCTZ and HIPOLITO-I d/c'ed. Improved with IVF. Eventually required exploratory lap. Required replacement of potassium. For BP norvasc and lasix added with above other bp meds d/c'ed PMH significant forhtnneuropathyhx endometrial cahldchronic low back painseizure dxibs admit to facility for continued care and therapy Yusuf Awad MD [address] [place] [address], [address], [place], [address], [facility] 09/30/2024 09:21:01 10/02/2024 text/html Maria Ines is seen to day for discharge.She is returning home today with the support of services. She is an 84 yo lady, admitted to [facility] 09/20/24 from [facility] for continued care and rehab after a brief hosp. due to SBO, ileus, AGUILAR. She presented to [facility] 09/06 with N/V/D and abdominal pain.Abd. CT concerning for SBO vs. ileus as well as possible inflammatory bowel disease, nodular thickening of liver surface (? cirrhosis) with small ascites.Initially managed conservatively and followed by surgery.Started ceftriaxone and flagyl x 9 days for colitis and leukocytosis.Developed AGUILAR (Cr. 0.63 -> 2.6). HCTZ/HIPOLITO I stopped, seen by Ren[facility], responded well to IVF.Due to poor response to conservative interventions, she underwent small bowel surgery (exploratory lap). Tolerated well, but experienced prolonged periods of ileus requiring PPN. Diet eventually able to be advanced and she continued to improve.Stay complicated by hypokalemia, replaced.Statin stopped due to ? cirrhosis. Recommended to follow up with GI outpt. for eval of IBD and liver changes noted on CT.HTN - as above, HCTZ/HIPOLITO I stopped due to AGUILAR. Norvasc 10 mg qd added for BP control, and eventually added lasix 20 mg qd. While here, Maria Ines has done well.She has worked with rehab, meeting goals for d/c home with services.He stay has overall been uneventful other than for some leg edema. Lasix increased to 40 mg qd with improvement in swelling.Abd. incision payton removed per request of surgery, incision healing well, steristrips applied.Appetite good, moving bowels, passing urine. Denies other complaints. No pain.VSSLabs stable.Case discussed with nsg., no new issues or concerns. Upon exam, Maria Ines is resting in bed, alert, NAD, in good spirits and happy to be returning home. She feels good and feels she is ready to go. PMH: HLD, HTN, peripheral neuropathy, hx. 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
--- OUTSIDE RECORDS SUMMARY | 2024-10-12 11:18 | XMS_ITS | Patient Health Record ---
Author Organization [facility] Address [address] [facility] [place] [place] [address] Care Team Providers Care Tentmaker Name Role Phone Wisam DAWSON, Vito Primary Care Provider Irais Mcghee Unavailable [phone] DayannaGerald romero Unavailable [phone] Allergies No Known Allergies Results Component Value Reference Range Notes X ray : Foot, right 3V Reviewed date:11/08/2023 01:46:45 PM Interpretation:See Examination above Performing Lab: Notes/Report: See Examination above X ray : Foot, left 3V Reviewed [...] Status Risk Notes Problem Acquired hallux valgus (45794268) Hallux valgus (acquired), left foot (M20.12) Active confirmed Problem Acquired hallux valgus (09004367) Hallux valgus (acquired), right foot (M20.11) Active confirmed Problem Acquired hammer toe of right foot (9583627033113555 ) Other hammer toe(s) (acquired), right foot (M20.41) Active confirmed Problem Acquired hammer toe of left foot (8763312503882703 ) Other hammer toe(s) (acquired), left foot (M20.42) Active confirmed Problem 324921438 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 confirmed Problem 397788955 Pronation deformity of right foot (M21.6X1) Active confirmed Problem 284563166 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) Active confirmed Problem 140902766 Equinus contracture of right ankle (M24.571) Active confirmed Problem Localized, primary osteoarthritis of the ankle and/or foot (766463692) Osteoarthritis of right ankle and foot (M19.071) Active confirmed Problem Localized, primary osteoarthritis of the ankle and/or foot (885815360) Osteoarthritis of left ankle and foot (M19.072) Active confirmed Problem 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) Plantar fasciitis, bilateral (M72.2) Active confirmed Vital Signs Blood pressure diastolic 70 mm Hg 07/13/2024 Height 5 ft 5 in in 07/13/2024 Blood pressure systolic 120 mm Hg 07/13/2024 Weight 182 lbs 07/13/2024 BMI 30.28 kg/m2 07/13/2024 Procedures Procedure Date Ordered Date Performed Result Body Sit e 31583-YONPWLU NAIL, 6 OR MORE 11/08/2023 N/A 07860-QOCLBEB NAIL, 6 OR MORE 03/13/2024 N/A 65842-LUZKUQK NAIL, 6 OR MORE 07/13/2024 N/A 34693 I&D ABSCESS- SIMPLE,SINGLE 07/13/2024 N/A Encounters Encounter Location Date Provider Diagnosis [address] [address] 11/08/2023 Irais Black Pain in right foot [...] Osteoarthritis of right ankle and foot M19.[address] [address] 03/13/2024 Irais Black Pain in right foot [...] M79.674 and Pain in left toe(s) M79.[address] [address] 07/13/2024 Irais Black Pain in right foot [...] M79.675 and Abscess of toe, left L02.612 [facility] [place] [address] [place] [address] 10/13/2023 Irais Prieto Assessments Encounter Date Diagnosis [...] Treatment Pending Test Test Name Order Date 73158-[id number] NAIL, 6 OR MORE 11/08/2023 56088-HZVRGAP NAIL, 6 OR MORE 03/13/2024 34861-OQENAGW NAIL, 6 OR MORE 07/13/2024 24565 I&D ABSCESS- SIMPLE,SINGLE 025 Next Appt Details Provider Name:Irais Prieto , 11/06/2024 03:15:00 PM, [address] [facility], [place], [address], Insurance Providers Payer Name Payer Address Payer Phone Subscriber Number Group Number Insured Name Patient Relationship to Insured Coverage Start Date Coverage End Date [facility] ([facility] [address] [place] [address] [id number] Maria Ines Peacock Self - patient is the insured Medical (General) History Medical History History ICD Code Cancer Seizures High blood pressure Surgical History Surgery Date(Month/Year) historectomy left and right hip replacement [phone]
--- OUTSIDE RECORDS SUMMARY | 2024-10-12 11:18 | XMS_ITS ---
Author Organization Vito Joel MD Address [address] [facility] [address] [place] [phone] Care Team Providers Care Precision Lens Technician Name Role Phone Vito Joel Primary Care Provider [phone] REASON FOR VISIT FYI Encounters Encounter Location Date Provider Diagnosis Vito Joel MD [address] [place] [address] [address] [place] [phone] 10/06/2024 Vito Joel Plan Of Treatment Next Appt Details Provider Name:Vito romero, 01/09/2025 08:00:00 AM, [address] [place] [address], [address], [phone], Provider Name:Vito romero, 01/16/2025 10:00:00 AM, [address] [place] [address], [address], [phone], Provider Name:Vito romero, 07/10/2025 08:00:00 AM, [address] [place] [address], [address], [phone], Provider Name:Vito romero, 07/17/2025 01:00:00 PM, [address] [place] [address], [address], [phone], Progress Notes * Maria Ines KAM ADOB:[birth year] (84 yo F)Acc No.[id number]:10/06/2024 Patient:?KAMMaria Ines :1940???Age:84 Y???Sex:Female Address:[address] [place] [address] [place] [address] * true * Date:? Generated for Chey winslow/Sofie/eTransmitting on:?10/12/2024 11:18 AM EDT
--- OUTSIDE RECORDS SUMMARY | 2024-10-12 11:19 | XMS_ITS | Patient Health Record ---
Author Organization Vito Joel MD Address [address] [place], [place] [id number] Care Team Providers Care Ginner Helper Name Role Phone Vito Joel Primary Care Provider Allergies No Known Allergies Results Component Value Reference Range Notes Complete Blood Count Auto Di ff Reviewed date:07/06/2024 01:41:47 PM Interpretation: Performing Lab:[facility], [address] [place] [phone] Notes/Report: White Blood Count 5.9 4.8-10.8 X10*3/uL [...] NRBC Abs Auto 0.000 0.0-0.012 X10*3/uL Comprehensive [place]. Panel Fa st Reviewed date:07/06/2024 01:53:50 PM Interpretation: Performing Lab:[address] [address] Notes/Report: Sodium 135 135-145 mmol/L Potassium 4.1 [...] Panel Reviewed date:07/06/2024 01:43:16 PM Interpretation: Performing Lab:[address] [address] Notes/Report: Triglycerides 81 <150 mg/dL Desirable Triglyceride: [...] Random Reviewed date:07/06/2024 01:41:54 PM Interpretation: Performing Lab:[facility], [address] [place] [address] Notes/Report: Creatinine Urine 67.54 Microalbumin Urine 25.0 Microalbum/Creatinine Ratio Ur 37.0 <30 ug/mg cr Albumin/Creatinine Ratio Reference Ranges: Normal: < 30 ug/mg creatinine Microalbuminuria: 30 - 300 ug/mg creatinine Clinical Albuminuria: > 300 ug/mg creatinine Hemoglobin A1c Reviewed date:07/06/2024 01:43:25 PM Interpretation: Performing Lab:[facility], [address] [place] [address] Notes/Report: Hemoglobin A1c % 5.6 <6.0 % [...] average glucose, using the formula of the Y1T-Zgjzwgp Average Glucose study (ADAG), Diabetes Care, Vol.31,#8, Feb. 2007 UA ClnCatch+Micro w/rflx Cul t Reviewed date:07/13/2024 11:30:15 AM Interpretation:JENNIFER 07/13/24 Performing Lab:[facility], [address], [place] [address] Notes/Report: Urine, Clean Catch Color Urine Yellow Appearance Urine Clear PH 7.0 5.0-9.0 Glucose Urine UA Negative Negative mg/dL Urine Blood Small (1+) Negative Specific [place] - Urine 1.010 1.005-1.025 Urine Protein Negative [...] Notes/Report: Negative Occult Blood, Stool, Guaiac Neg XR hip LT min 2V Reviewed date:06/18/2024 02:18:50 PM Interpretation: Performing Lab: Notes/Report: [facility] [address] [place] [address] XRay Report Signed Patient: Maria Ines Kam MR#: [id number] 983 : 1940 Acct:[id number] Age/Sex: 84 / F ADM Date: 04/20/24 Loc: HO.HOSX Attending Dr: Julissa Lama MD Ordering Physician: Julsisa Apple Date of Service: 04/20/24 Procedure(s): XR hip LT min 2V Accession Number(s): [id number] cc: Vito Joel MD; Julissa Apple EXAMINATION: [...] Julien Espinoza MD 06/16/2024 04:07 PM EST RP Dictated By: Julien Espinoza MD Signed By: <Electronically signed by Julien Espinoza MD in OV> 06/16/24 160 DD/ 3 TD/TT: 04/20/24957 Unit Nurse: [facility] [address] [place] [address] XRay Report Signed Patient: Armin Kam MR#: [id number] 983 : 1940 Acct:[id number] Age/Sex: 84 / F ADM Date: 04/20/24 Loc: HO.HOSX Attending Dr: Julissa Lama MD Ordering Physician: Julissa Apple Date of Service: 04/20/24 Procedure(s): XR hip LT min 2V Accession Number(s): [id number] cc: Vito Joel MD; Julissa Apple EXAMINATION: [...] or periprosthetic lucencies. No soft tissue abnormalities. X R/XR hip LT min 2V IMPRESSION: Left hip arthroplast y without acute complication. No fracture. Electronically cristiane d by: Julien Espinoza MD 06/16/2024 04:07 PM EST RP Dictated By: Julien Espinoza MD Signed By: <Electronically signed by Julien Espinoza MD in OV> 06/16/24 160 DD/ 3 TD/TT: 04/20/24957 Unit Nurse: XR lumbar spine 2-3V Reviewed date:06/18/2024 02:19:34 PM Interpretation: Performing Lab: Notes/Report: [facility] [address] [place] [address] XRay Report Signed Patient: Maria Ines Kam MR#: [id number] 983 : 1940 Acct:[id number] Age/Sex: 84 / F ADM Date: 04/20/24 Loc: HO.HOSX Attending Dr: Julissa Lama MD Ordering Physician: Julissa Apple Date of Service: 04/20/24 Procedure(s): XR lumbar spine 2-3V Accession Number(s): [id number] cc: Vito Joel MD; Julissa Apple EXAMINATION: [...] by: Julien Espinoza MD 06/16/2024 04:03 PM [facility] Dictated By: Julien Espinoza MD Signed By: <Electronically signed by Julien Espinoza MD in OV> 06/16/24 1603 DD/ 3 TD/TT: 04/20/24 0958 Unit Nurse: [facility] [address] [place] [address] [address] [place] [address] XRay Report Signed Patient: Armin Kam MR#: [id number] 983 : 1940 Acct:[id number] Age/Sex: 84 / F ADM Date: 04/20/24 Loc: HO.HOSX Attending Dr: Julissa Lama MD Ordering Physician: Julissa Apple Date of Service: 04/20/24 Procedure(s): XR lum bar spine 2-3V Accession Number(s): [id number] cc: Vito Joel MD; Julissa Apple EXAMINATION: XR LUMBOSACRAL SPINE 3 VIEWS CLINICAL INFORMATION: Dorsalgia, unspecifi ed M54.9. Rule out fracture. COMPARISON: None. TECHNIQUE: Three views of the lumbosacral spine. FINDINGS: There is normal bony mineralization. No fractures, compression deformities, or suspicious bone lesions. There is a moderate levoconvex scoliosis, apex at L3. There is a mild rotatory component. There is a normal butch mbar lordosis. Minimal degenerative retrolistheses L2 on L3 and L3 on L4. Severe disc degenera tion throughout the lumbar spine with relative preservation of L5-S1. There is significant facet arthrosis right greater than left spanning L2-S1. Soft tissues demonst rate vascular calcifications, and surgical clips in the left lower quadr ant region. Partially imaged rig ht hip replacement. X R/XR lumbar spine 2-3V IMPRESSION: 1. No acute lumbar findings. 2. Moderate levoconv ex scoliosis with rotatory component. 3. Degenerative spondylosis, at least moderate in severity. Electronically cristiane d by: Julien Espinoza MD 06/16/2024 04:03 PM [facility] Dictated By: Julien Espinoza MD Signed By: <Electronically signed by Julien Espinoza MD in OV> 06/16/24 1603 DD/ 0954 TD/TT: 04/20/24 0958 Unit Nurse: XR hip RT min 2V Reviewed date:06/18/2024 02:20:56 PM Interpretation: Performing Lab: Notes/Report: [facility] [address] [place] [address] Drive [address] [place] [address] XRay Report Signed Patient: Maria Ines Kam MR#: [id number] 983 : 1940 Acct:[id number] Age/Sex: 84 / F ADM Date: 04/20/24 Loc: HO.HOSX Attending Dr: Julissa Lama MD Ordering Physician: Julissa Apple Date of Service: 04/20/24 Procedure(s): XR hip RT min 2V Accession Number(s): [id number] cc: Vito Joel MD; Julissa Apple EXAMINATION: [...] by: Julien Espinoza MD 06/16/2024 04:05 PM [facility] Dictated By: Julien Espinoza MD Signed By: <Electronically signed by Julien Espinoza MD in OV> 06/16/24 1605 DD/ 0954 TD/TT: 04/20/24 0958 Unit Nurse: [facility] [address] [place] [address] XRay Report Signed Patient: Armin Kam MR#: [id number] 983 : 1940 Acct:[id number] Age/Sex: 84 / F ADM Date: 04/20/24 Loc: HO.HOSX Attending Dr: Julissa Lama MD Ordering Physician: Julissa Apple Date of Service: 04/20/24 Procedure(s): XR hip RT min 2V Accession Number(s): [id number] cc: Vito Joel MD; Julissa Apple EXAMINATION: [...] or periprosthetic lucencies. No soft tissue abnormalities. X R/XR hip RT min 2V IMPRESSION: Right hip arthroplas ty without acute complication. No fracture. Electronically cristiane d by: Julien Espinoza MD 06/16/2024 04:05 PM [facility] Dictated By: Julien Espinoza MD Signed By: <Electronically signed by Julien Espinoza MD in OV> 06/16/24 1605 DD/ TD/TT: 04/20/24 0958 Unit Nurse: XR sacrum coccyx min 2V Reviewed date:06/18/2024 02:20:28 PM Interpretation: Performing Lab: Notes/Report: [facility] [address] [place] [address] Drive [address] [place] [address] XRay Report Signed Patient: Maria Ines Kam MR#: [id number] 983 : 1940 Acct:[id number] Age/Sex: 84 / F ADM Date: 04/20/24 Loc: HO.HOSX Attending Dr: Julissa Lama MD Ordering Physician: Julissa Apple Date of Service: 04/20/24 Procedure(s): XR sacrum coccyx min 2V Accession Number(s): [id number] cc: Vito Joel MD; Julissa Apple EXAMINATION: [...] by: Julien Espinoza MD 06/16/2024 04:10 PM EST RP Dictated By: Julien Espinoza MD Signed By: <Electronically signed by Julien Espinoza MD in OV> 06/16/24 1610 DD/ 3 TD/TT: 04/20/24957 Unit Nurse: [facility] [address] [place] [address] XRay Report Signed Patient: Armin Kam MR#: [id number] 983 : 1940 Acct:[id number] Age/Sex: 84 / F ADM Date: 04/20/24 Loc: [facility] Attending Dr: Julissa Lama MD Ordering Physician: Julissa Apple Date of Service: 04/20/24 Procedure(s): XR sac rum coccyx min 2V Accession Number(s): [id number] cc: Vito Joel MD; Julissa Apple EXAMINATION: [...] tissue abnormality. Surgical clips left lower quadrant. X R/XR sacrum coccyx min 2V IMPRESSION: 1. 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 2. No acute bony abnormalities. Bilateral hip arthroplasties without complication. Electronically cristiane d by: Julien Espinoza MD 06/16/2024 04:10 PM EST RP Dictated By: Julien Espinoza MD Signed By: <Electronically signed by Julien Espinoza MD in OV> 06/16/24 1610 DD/ 3 TD/TT: 04/20/24957 Unit Nurse: Urine Culture Reviewed date:07/13/2024 12:31:12 PM Interpretation: Performing Lab:[facility], [address] [place] [address] Notes/Report: O:ESCCOL Escherichia coli Urine Culture Quant Urine Culture > 100,000 cfu/mL Ampicillin 8 Cefazolin 2 Cefepime <=0.12 Ceftriaxone <=0.25 Ciprofloxacin <=0.06 Gentamicin <=1 Nitrofurantoin <=16 Trimethoprim/Sulfamethox azole <=20 UA ClnCatch+Micro w/rflx Cul t Reviewed date:09/07/2024 12:41:56 PM Interpretation: Performing Lab:[facility], [address] [place] [address] Notes/Report: Urine, Clean Catch Color Urine Dark Yellow Appearance Urine Clear PH 6.0 5.0-9.0 Glucose Urine UA Negative Negative mg/dL Urine Blood Negative Negative Specific [place] - Urine >= 1.030 1.005-1.025 Urine Protein 30 (1+) Neg-Trace mg/dL Urine Ketones Trace Negative mg/dL Nitrite Urine Negative Negative Leukocyte Esterase Urine Negative Negative RBC Urine 0-2 0-2 /HPF WBC Urine 0-5 0-5 /HPF Squamous Epithelial Cell Urine 3-5 0-2 /HPF Bacteria Urine None Seen None Seen Hyaline Casts Urine 3-5 0-2 /LPF CT abdomen pelvis w con Reviewed date:09/07/2024 10:29:18 AM Interpretation:reel radiology Performing Lab: Notes/Report: [address] [address] [address] Scan Report Signed with Addenda Patient: Maria Ines Kam MR#: [id number] 983 : 1940 Acct:[id number] Age/Sex: 84 / F ADM Date: 09/06/24 Loc: [facility] Attending Dr: Kavon Burnham MD Ordering Physician: Mago Mckeon MD Date of Service: 09/06/24 Procedure(s): CT abdomen pelvis w IV con Accession Number(s): [id number] cc: Vito Joel MD; Mago Mckeon MD Report Number: [id number]: Total DLP = 734.00 mGy-cm ADDENDUM This document has been electronically signed by: Dc Multani MD on 09/06/2024 18:32:37 ADDENDUM: Multiple dilated small bowel loops, with a prominent twisting appearance to the mesenteric vessels in the right midabdomen with some retraction of the proximal transverse colon appearance is highly worrisome for volvulus versus internal hernia. Surgical consultation advised. Ascites present although may relate to cirrhosis although no splenomegaly. Correlation for possible peritonitis. Submucosal fat deposition in the ascending colon, initially described in inflammatory bowel disease although can be normal variant in obesity/type 2 diabetes, celiac disease as well other possibilities. This document has been electronically signed by: Mor Macias MD on 09/07/2024 09:07:31 Addendum Dictated By: Dc Multani MD Addendum Signed By: <Electronically signed by Dc Multani MD in OV> 09/07/249[address] Addendum Cosigned By: DD/ /27/1831 TD/TT: 09/07/2412/27/906 CLINICAL HISTORY: Abdominal pain, vomiting, R o obstruction CT abdomen and pelvis without contrast Comparison: None Findings: Examination is limited by without contrast. Lung bases are clear. No pleural effusion. Mild nodular appearance of the liver surface without focal liver lesion. Pancreas, Spleen and both adrenals show normal size, shape and attenuation on present unenhanced scan. No CBD dilatation. No calcified gallstone in the gallbladder. Both kidneys reveal normal in size, shape, position and attenuation. No kidney stone. No hydronephrosis. The IVC, aorta and portal vein are within normal position and caliber. Atherosclerosis calcification of the aorta. No evidence of retroperitoneal lymphadenopathy. Small ascites There is mild dilation of the small bowel measuring up to 3.3 cm in diameter. There is bowel wall thickening of the ascending colon with fatty replacement. Appendix appears normal. Post hysterectomy. Evaluation of the pelvis is limited by the beam hardening artifact from the hip prosthesis. Bilateral hip replacement. Degenerative changes of the lumbar spine. IMPRESSION: Mild dilation of the small bowel could represent small-bowel obstruction or ileus. Bowel wall thickening with fatty replacement of the ascending colon could represent inflammatory bowel disease. Correlation with colonoscopy findings as indicated. Mild nodular thickening of the liver surface with small ascites. Liver cirrhosis can not be excluded. Additional findings as above. This document has been electronically signed by: Dc Multani MD on 09/06/2024 18:32:37 Dictated By: Dc Multani MD Signed By: <Electronically signed by Dc Multani MD in OV> 09/06/241832 DD/ 31 TD/TT: 09/06/241831 Unit Nurse: [place] [address] CT Scan Report Signed with Addenda Patient: Armin Kam MR#: [id number] 983 : 1940 Acct:[id number] Age/Sex: 84 / F ADM Date: 09/06/24 Loc: [place] [address]: Xavier Burnham MD Ordering Physician: Mago Mckeon MD Date of Service: 09/06/24 Procedure(s): CT abd omen pelvis w IV con Accession Number(s): [id number] cc: Vito Joel MD; Mago Mckeon MD Report Number: [id number]: Total DLP = 734.00 mGy-cm ADDENDUM This document has be en electronically signed by: Dc Multani MD on 09/06/2024 18:32:37 ADDENDUM: Multiple dilated sma ll bowel loops, with a prominent twisting appearance to the mesenteric vessels in the right midabdomen with some retraction of the proximal transve rse colon appearance is highly worrisome for volvulus versus internal mejia ia. Surgical consultation advised. Ascites present alth ough may relate to cirrhosis although no splenomegaly. Correlation for poss ible peritonitis. Submucosal fat deposition in the ascending colon, initially described in inflammatory bowel disease although can be normal variant in obesity/type 2 diabetes, celiac disease as well other possibilities. This document has be en electronically signed by: Mor Macias MD on 09/07/2024 09:07:31 Addendum Dictated By : Dc Multani MD Addendum Signed By: <Electronically signed by Dc Multani MD in OV> 09/07/[address] Addendum Cosigned By: DD/ /27/1831 TD/TT: 09/07/2412/27/906 CLINICAL HISTORY: Abdominal pain, vomiting, R o obstruction CT abdomen and pelvi s without contrast Comparison: None Findings: Examination is limit ed by without contrast. Lung bases are clear . No pleural effusion. Mild nodular appeara nce of the liver surface without focal liver lesion. Pancreas, Spleen and both adrenals show normal size, shape and attenuation on present unenhance d scan. No CBD dilatation. No calcified gallsto ne in the gallbladder. Both kidneys reveal normal in size, shape, position and attenuation. No kidney stone. No hydronephrosis. The IVC, aorta and portal vein are within normal position and caliber. Atherosclerosis calcification of the aorta. No evidence of retroperitoneal lymphadenopathy. Sma ll ascites There is mild dilati on of the small bowel measuring up to 3.3 cm in diameter. There is b owel wall thickening of the ascending colon with fatty replacement. Appendi x appears normal. Post hysterectomy. Evaluation of the pelvis is limited by the beam hardening artifact f rom the hip prosthesis. Bilateral hip replacement. Degenerative changes of the lumbar spine. IMPRESSION: Mild dilation of the small bowel could represent small-bowel obstruction or ileus. Bowel wall thickenin g with fatty replacement of the ascending colon could represent inflammato ry bowel disease. Correlation with colonoscopy findings as indicated. Mild nodular thicken ing of the liver surface with small ascites. Liver cirrhosis can not be excluded. Additional findings as above. This document has be en electronically signed by: Dc Multani MD on 09/06/2024 18:32:37 Dictated By: Dc Multani MD Signed By: <Electronically signed by Dc Multani MD in OV> 09/06/241832 DD/ 31 TD/TT: 09/06/241831 Unit Nurse: XR chest 1V Reviewed date:09/07/2024 10:29:44 AM Interpretation: Performing Lab: Notes/Report: [address] [address] XRay Report Signed Patient: Maria Ines Kam MR#: [id number] 983 : 1940 Acct:[id number] Age/Sex: 84 / F ADM Date: 09/06/24 Loc: [place] [address]: Jose Wallace MD Ordering Physician: Mago Mckeon MD Date of Service: 09/06/24 Procedure(s): XR chest 1V Accession Number(s): [id number] cc: Vito Jeol MD; Mago Mckeon MD CLINICAL HISTORY: Post NG tube placement 1 view chest x-ray Comparison: None Findings: The tip of the NG tube is overlying the left upper quadrant. Mild atelectasis of the right lung base. Heart size is normal. No acute fracture. IMPRESSION: Tip of NG tube is overlying the stomach. This document has been electronically signed by: Dc Multani MD on 09/06/2024 21:21:45 Dictated By: Dc Multani MD Signed By: <Electronically signed by Dc Multani MD in OV> 09/06/242122 DD/ 20 TD/TT: 09/06/242120 Unit Nurse: [place] [address] XRay Report Signed Patient: Armin Kam MR#: [id number] 983 : 1940 Acct:[id number] Age/Sex: 84 / F ADM Date: 09/06/24 Loc: [place] [address]: Lakesha Wallace MD Ordering Physician: Mago Mckeon MD Date of Service: 09/06/24 Procedure(s): XR jose st 1V Accession Number(s): [id number] cc: Vito Joel MD; Mago Mckeon MD CLINICAL HISTORY: Po st NG tube placement 1 view chest x-ray Comparison: None Findings: The tip of the NG tu be is overlying the left upper quadrant. Mild atelectasis of the r ight lung base. Heart size is normal. No acute fracture. IMPRESSION: Tip of NG tube is overlying the stomach. This document has be en electronically signed by: Dc Multani MD on 09/06/2024 21:21:45 Dictated By: Dc uMltani MD Signed By: <Electronically signed by Dc Multani MD in OV> 09/06/242122 DD/ 20 TD/TT: 09/06/242120 Unit Nurse: Complete Blood Count no Diff Reviewed date:09/07/2024 12:33:32 PM Interpretation: Performing Lab:[facility], [address] [place] [phone] Notes/Report: White Blood Count 21.7 4.8-10.8 X10*3/uL Red Blood Count 5.86 4.20-5.50 X10*6/uL Hemoglobin 17.3 12.0-16.0 g/dl Hematocrit 51.4 37.0-47.0 % Mean Corpuscular Volume 87.7 80.0-98.0 fL Mean Corpuscular Hemoglobin 29.5 27.0-33.0 pg Mean Corpuscular HGB Conc 33.7 31.0-35.0 g/dl Red Cell Distribution Width 13.5 11.0-16.0 % Platelet Count 447 160-400 X10*3/uL Mean Platelet Volume 9.7 9.4-12.3 fL NRBC Pct Auto 0.0 0.0-0.2 /100WBC NRBC Abs Auto 0.000 0.0-0.012 X10*3/uL Basic Metabolic Panel Reviewed date:09/07/2024 10:30:09 AM Interpretation: Performing Lab:[facility], [address] [place] [address] Notes/Report: Sodium 137 135-145 mmol/L Potassium 3.9 3.3-5.1 mmol/L Chloride 103 96-108 mmol/L Carbon Dioxide 19 22-29 mmol/L Anion Gap 19 12-20 Blood Urea Nitrogen 22 9-16 mg/dL Creatinine 1.22 0.5-1.4 mg/dL Creatinine Clr Calc Pharmacy 36.9 Provided height and weight: 165.1 cm, 91.3 kg. eGFR (calculated from the MDRD study equation) and eCrCl (calculated from the Cockcroft-Gault equation) are based on different parameters and may not yield comparable results. If eCrCl result is absurd, please check patient's height/weight. Estimated Glomerular Filt Rate 42 Chronic Kidney Disease: Estimated GFR < 60 mL/min/1.73m2 Severe Kidney Disease: Estimated GFR < 15 mL/min/1.73m2 Glucose Random 176 60-115 mg/dL Calcium 9.3 8.4-10.2 mg/dL Troponin-I High Sensitivity Reviewed date:09/08/2024 12:12:52 PM Interpretation: Performing Lab:[facility], [address] [place] [phone] Notes/Report: Troponin-I High Sensitivity 73.8 <3.5-17.0 ng/L Critical value for test(s): TROPONIN Results called to and read back by: MANUEL Person calling: NGUYENQ Date: 09/07/24 Time: 1915 The Cronin high sensitivity Troponin-I results should be used in conjunction with other diagnostic information such as ECG, clinical observations and information, and patient symptoms to aid in the diagnosis of VT. XR chest 1V Reviewed date:09/08/2024 12:12:42 PM Interpretation: Performing Lab: Notes/Report: [address] [address] XRay Report Signed Patient: Maria Ines Kam MR#: [id number] 983 : 1940 Acct:[id number] Age/Sex: 84 / F ADM Date: 09/06/24 Loc: [place] [address]: Kavon Burnham MD Ordering Physician: Jose Wallace MD Date of Service: 09/07/24 Procedure(s): XR chest 1V Accession Number(s): [id number] cc: Vito Joel MD; Jose Wallace MD CLINICAL HISTORY: confirm NG tube placement 1 view chest x-ray Comparison: CR - XR CHEST 1V - 09/06/24 20:24 EST Findings: No consolidation or effusion. Heart size is normal. No acute fracture. NG tube is adequately positioned. IMPRESSION: 1. NG tube is adequately positioned. No significant interval changes. This document has been electronically signed by: Kamron Nunez MD on 09/07/2024 21:24:13 Dictated By: Kamron Nunez MD Signed By: <Electronically signed by Kamron Nunez MD in OV> 09/07/242124 DD/ 23 TD/TT: 09/07/242123 Unit Nurse: [facility] [address] XRay Report Signed Patient: Armin Kam MR#: [id number] 983 : 1940 Acct:[id number] Age/Sex: 84 / F ADM Date: 09/06/24 Loc: [facility] Attending Dr: Xavier Burnham MD Ordering Physician: Jose Wallace MD Date of Service: 09/07/24 Procedure(s): XR jose st 1V Accession Number(s): [id number] cc: Vito Joel MD; Jose Wallace MD CLINICAL HISTORY: confirm NG tube placement 1 view chest x-ray Comparison: CR - XR CHEST 1V - 09/06/24 20:24 EST Findings: No consolidation or effusion. Heart size is normal. No acute fracture. NG tube is adequatel y positioned. IMPRESSION: 1. NG tube is adequa tely positioned. No significant interval changes. This document has be en electronically signed by: Kamron Nunez MD on 09/07/2024 21:24:13 Dictated By: Kamron Nunez MD Signed By: <Electronically signed by Kamron Nunez MD in OV> 09/07/242124 DD/ 23 TD/TT: 09/07/242123 Unit Nurse: XR chest 1V Reviewed date:09/08/2024 12:11:49 PM Interpretation: Performing Lab: Notes/Report: [address] [address] XRay Report Signed with Addenda Patient: Maria Ines Kam MR#: [id number] 983 : 1940 Acct:[id number] Age/Sex: 84 / F ADM Date: 09/06/24 Loc: [facility] Attending Dr: Kavon Burnham MD Ordering Physician: Jose Wallace MD Date of Service: 09/07/24 Procedure(s): XR chest 1V Accession Number(s): [id number] cc: Vito Joel MD; Jose Wallace MD ADDENDUM This document has been electronically signed by: Kamron Nunez MD on 09/07/2024 21:26:41 ADDENDUM: This report was discussed with Jayde Coles RN on Sep 07, 2024 21:32:00 EST. This document has been electronically signed by: Diamond Iraheta on 09/07/2024 21:33:00 Addendum Dictated By: Kamron Nunez MD Addendum Signed By: <Electronically signed by Kamron Nunez MD in OV> 09/07/242133 Addendum Cosigned By: DD/ /27/2125 TD/TT: 09/07/2412/27/2132 CLINICAL HISTORY: repeat for NG tube placement 1 view chest x-ray Comparison: CR - XR CHEST 1V - 09/07/24 20:39 EST CR - XR CHEST 1V - 09/06/24 20:24 EST Findings: No consolidation or effusion. Heart size is normal. No acute fracture. The NG tube tip is now in the proximal stomach with the side port near the gastroesophageal junction. IMPRESSION: The NG tube tip is now in the proximal stomach with the side port near the gastroesophageal junction. please advance 8-10 cm. This document has been electronically signed by: Kamron Nunez MD on 09/07/2024 21:26:41 Dictated By: Kamron Nunez MD Signed By: <Electronically signed by Kamron Nunez MD in OV> 09/07/242126 DD/ 25 TD/TT: 09/07/242125 Unit Nurse: [place] [address] XRay Report Signed with Breana Patient: Armin Kam MR#: [id number] 983 : 1940 Acct:[id number] Age/Sex: 84 / F ADM Date: 09/06/24 Loc: [facility]: Xavier Burnham MD Ordering Physician: Jose Wallace MD Date of Service: 09/07/24 Procedure(s): XR jose st 1V Accession Number(s): [id number] cc: Vito Joel MD; Jose Wallace MD ADDENDUM This document has be en electronically signed by: Kamron Nunez MD on 09/07/2024 21:26:41 ADDENDUM: This report was discussed with Jayde Coles RN on Sep 07, 2024 21:32:00 EST. This document has be en electronically signed by: Diamond Iraheta on 09/07/2024 21:33:00 Addendum Dictated By : Kamron Nunez MD Addendum Signed By: <Electronically signed by Kamron Nunez MD in OV> 09/07/242133 Addendum Cosigned By: DD/ /27/2125 TD/TT: 09/07/2412/27/2132 CLINICAL HISTORY: re peat for NG tube placement 1 view chest x-ray Comparison: CR - XR CHEST 1V - 09/07/24 20:39 EST CR - XR CHEST 1V - 09/06/24 20:24 EST Findings: No consolidation or effusion. Heart size is normal. No acute fracture. The NG tube tip is n ow in the proximal stomach with the side port near the gastroesophageal junction. IMPRESSION: The NG tube tip is n ow in the proximal stomach with the side port near the gastroesophageal junction. please advance 8-10 cm. This document has be en electronically signed by: Kamron Nunez MD on 09/07/2024 21:26:41 Dictated By: Kamron Nunez MD Signed By: <Electronically signed by Kamron Nunez MD in OV> 09/07/242126 DD/ 25 TD/TT: 09/07/242125 Unit Nurse: XR chest 1V Reviewed date:09/08/2024 12:11:23 PM Interpretation: Performing Lab: Notes/Report: [address] [address] XRay Report Signed Patient: Maria Ines Kam MR#: [id number] 983 : 1940 Acct:[id number] Age/Sex: 84 / F ADM Date: 09/06/24 Loc: [facility]: Kavon Burnham MD Ordering Physician: Jose Wallace MD Date of Service: 09/07/24 Procedure(s): XR chest 1V Accession Number(s): [id number] cc: Vito Joel MD; Jose Wallace MD CLINICAL HISTORY: confirm NG tube placement after advanced. 1 view chest x-ray Comparison: None Findings: There is bibasilar atelectasis. Right lower lobe pneumonia is not excluded. Heart size is normal. No acute fracture. The NG tube has been advanced and appears adequately positioned. IMPRESSION: 1. The NG tube has been advanced and appears adequately positioned. 2. There is bibasilar atelectasis. Right lower lobe pneumonia is not excluded. This document has been electronically signed by: Kamron Nunez MD on 09/07/2024 23:16:15 Dictated By: Kamron Nunez MD Signed By: <Electronically signed by Kamron Nunez MD in OV> 09/07/242316 DD/ 15 TD/TT: 09/07/242315 Unit Nurse: [place] [address] XRay Report Signed Patient: Armin Kam MR#: [id number] 983 : 1940 Acct:[id number] Age/Sex: 84 / F ADM Date: 09/06/24 Loc: [place] [address]: Xavier Burnham MD Ordering Physician: Jose Wallace MD Date of Service: 09/07/24 Procedure(s): XR jose st 1V Accession Number(s): [id number] cc: Vito Joel MD; Jose Wallace MD CLINICAL HISTORY: confirm NG tube placement after advanced. 1 view chest x-ray Comparison: None Findings: There is bibasilar atelectasis. Right lower lobe pneumonia is not excluded. Heart size is normal. No acute fracture. The NG tube has been advanced and appears adequately positioned. IMPRESSION: 1. The NG tube has b een advanced and appears adequately positioned. 2. There is bibasila r atelectasis. Right lower lobe pneumonia is not excluded. This document has be en electronically signed by: Kamron Nunez MD on 09/07/2024 23:16:15 Dictated By: Kamron Nunez MD Signed By: <Electronically signed by Kamron Nunez MD in OV> 09/07/242316 DD/ 15 TD/TT: 09/07/242315 Unit Nurse: Complete Blood Count no Diff Reviewed date:09/08/2024 12:45:54 PM Interpretation: Performing Lab:[facility], [address] [place] [phone] Notes/Report: SPECIMEN QNS White Blood Count 18.4 4.8-10.8 X10*3/uL Red Blood Count 4.86 4.20-5.50 X10*6/uL Hemoglobin 14.4 12.0-16.0 g/dl Hematocrit 42.9 37.0-47.0 % Mean Corpuscular Volume 88.3 80.0-98.0 fL Mean Corpuscular Hemoglobin 29.6 27.0-33.0 pg Mean Corpuscular HGB Conc 33.6 31.0-35.0 g/dl Red Cell Distribution Width 13.7 11.0-16.0 % Platelet Count 291 160-400 X10*3/uL Mean Platelet Volume 9.8 9.4-12.3 fL NRBC Pct Auto 0.0 0.0-0.2 /100WBC NRBC Abs Auto 0.000 0.0-0.012 X10*3/uL Basic Metabolic Panel Reviewed date:09/08/2024 12:10:27 PM Interpretation: Performing Lab:[facility], [address] [place] [phone] Notes/Report: Sodium 138 135-145 mmol/L Potassium 4.0 3.3-5.1 mmol/L Chloride 100 96-108 mmol/L Carbon Dioxide 21 22-29 mmol/L Anion Gap 21 12-20 Blood Urea Nitrogen 44 9-16 mg/dL Creatinine 2.69 0.5-1.4 mg/dL Test was verif ied by repeat analysis. Creatinine Clr Calc Pharmacy 16.7 Provided height and weight: 165.1 cm, 91.3 kg. eGFR (calculated from the MDRD study equation) and eCrCl (calculated from the Cockcroft-Gault equation) are based on different parameters and may not yield comparable results. If eCrCl result is absurd, please check patient's height/weight. Estimated Glomerular Filt Rate 17 Chronic Kidney Disease: Estimated GFR < 60 mL/min/1.73m2 Severe Kidney Disease: Estimated GFR < 15 mL/min/1.73m2 Glucose Random 133 60-115 mg/dL Calcium 8.7 8.4-10.2 mg/dL Troponin-I High Sensitivity Reviewed date:09/08/2024 12:11:00 PM Interpretation: Performing Lab:[facility], [address] [place] [phone] Notes/Report: Troponin-I High Sensitivity 101.3 <3.5-17.0 ng/L Critical value for test(s): TROP Results called to and read back by: MANUEL Person calling: VYASRID Date: [id number] Time:151 The Cronin high sensitivity Troponin-I results should be used in conjunction with other diagnostic information such as ECG, clinical observations and information, and patient symptoms to aid in the diagnosis of VT. FL small bowel follow throug h Reviewed date:09/11/2024 12:48:07 PM Interpretation: Performing Lab: Notes/Report: [address] [address] Fluoroscopy Report Signed Patient: Maria Ines Kam MR#: [id number] 983 : 1940 Acct:[id number] Age/Sex: 84 / F ADM Date: 09/06/24 Loc: HO.S3 352-[address]: Kavon Burnham MD Ordering Physician: Lexi Walsh PA-C Date of Service: 09/08/24 Procedure(s): FL small bowel follow through Accession Number(s): [id number] cc: Vito Joel MD; Lexi Walsh PA-C EXAMINATION: FL SMALL BOWEL SERIES CLINICAL INFORMATION: ?SBO, abd distention, persistent nausea COMPARISON: None available. TECHNIQUE: Following a manager communication image of the abdomen, thick barium contrast was administered orally, and interval abdominal radiographs were performed to assess for contrast progression through the small bowel. Following contrast transit through the small bowel and into the colon, the patient was placed on the fluoroscopy table, and multiple spot images were obtained. FINDINGS: Communications Program Manager image of the abdomen demonstrates obstructed proximal small bowel gas pattern. Following oral administration of 450 mL of thick barium barium via enteric tube there is contrast opacifying stomach and proximal small bowel jejunal loops. There is no progression of contrast in the proximal small bowel loops up to 210 minutes of imaging. Further images will be obtained at variable intervals tonight and tomorrow morning. FL/FL small bowel follow through IMPRESSION: There is significant delay in transit of small bowel loops likely secondary to dynamic obstruction in the mid or distal jejunum. Follow-up KUB will be obtained today and tomorrow morning. Electronically signed by: Jeff Mcnair MD 09/11/2024 10:35 AM EDT RP Dictated By: Jeff Mcnair MD Signed By: <Electronically signed by Jeff Mcnair MD in OV> 09/11/24 1035 DD/ 14 TD/TT: 09/08/242019 Unit Nurse: [place] [address] Fluoroscopy Report Signed Patient: Armin Kam MR#: [id number] 983 : 1940 Acct:[id number] Age/Sex: 84 / F ADM Date: 09/06/24 Loc: .S3 352-[address]: Xavier Burnham MD Ordering Physician: Lexi Walsh PA-C Date of Service: 09/08/24 Procedure(s): FL sma ll bowel follow through Accession Number(s): [id number] cc: Vito Joel MD; Lexi Walsh PA-C EXAMINATION: FL SMALL BOWEL SERIES CLINICAL INFORMATION: ?SBO, abd distention , persistent nausea COMPARISON: None available. TECHNIQUE: Following a manager communication im age of the abdomen, thick barium contrast was administered orally, and interval abdominal radiographs were performed to assess for contra st progression through the small bowel. Following contrast transit thr ough the small bowel and into the colon, the patient was placed o n the fluoroscopy table, and multiple spot images were obtained. FINDINGS: Communications Program Manager image of the abdomen demonstrates obstructed proximal small bowel gas pattern. Following oral administration of 450 mL of thick barium barium via enteric tube there i s contrast opacifying stomach and proximal small bowel jejunal loops. There is no progression of contrast in the proximal small bowel loops up to 210 minutes of imaging. Further images will be obtained at variable intervals tonight and tomorrow morning. F L/FL small bowel follow through IMPRESSION: There is significant delay in transit of small bowel loops likely secondary to dynamic obstruction in the mid or distal jejunum. Follow-up KUB will b e obtained today and tomorrow morning. Electronically cristiane d by: Jeff Mcnair MD 09/11/2024 10:35 AM EDT RP Dictated By: Mr sabrina Mcnair MD Signed By: <Electronically signed by Jeff Mcnair MD in OV> 09/11/24 1035 DD/ 14 TD/TT: 09/08/242019 Unit Nurse: RUIZ XR KUB Reviewed date:09/08/2024 12:10:15 PM Interpretation: Performing Lab: Notes/Report: [address] [address] XRay Report Signed Patient: Maria Ines Kam MR#: [id number] 983 : 1940 Acct:[id number] Age/Sex: 84 / F ADM Date: 09/06/24 Loc: .S3 352-[address]: Kavon Burnham MD Ordering Physician: Kavon Burnham MD Date of Service: 09/08/24 Procedure(s): XR KUB Accession Number(s): [id number] cc: Vito Joel MD; Kavon Bunrham MD EXAMINATION: XR ABDOMEN KUB CLINICAL INDICATION: Sbo COMPARISON: CT abdomen and pelvis 09/06/2024 TECHNIQUE: AP view of the abdomen. FINDINGS: Scattered stool and gas seen in colon without distention. The small bowel loops are normal caliber. There is an enteric tube in the distal stomach. There is no organomegaly. No radiopaque calculi seen however limited. 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 There is mild levoscoliosis lumbar spine with degenerative disc changes and spondylosis seen throughout lumbar spine. XR/XR KUB IMPRESSION: Mild constipation. No acute process seen. Tip of enteric tube in the distal stomach. Electronically signed by: Jeff Mcnair MD 09/08/2024 09:34 AM EST RP Dictated By: Jeff Mcnair MD Signed By: <Electronically signed by Jeff Mcnair MD in OV> 09/08/24 0934 DD/ 0850 TD/TT: 09/08/24 0901 Unit Nurse: [place] [address] XRay Report Signed Patient: Armin Kam MR#: [id number] 983 : 1940 Acct:[id number] Age/Sex: 84 / F ADM Date: 09/06/24 Loc: HO.S3 352-[address]: Xavier Burnham MD Ordering Physician: Kavon Burnham MD Date of Service: 09/08/24 Procedure(s): XR KUB Accession Number(s): [id number] cc: Vito Joel MD; Kavon Burnham MD EXAMINATION: XR ABDOMEN KUB CLINICAL INDICATION: Sbo COMPARISON: CT abdomen and pelvi s 09/06/2024 TECHNIQUE: AP view of the abdomen. FINDINGS: Scattered stool and gas seen in colon without distention. The small bowel loops are norm al caliber. There is an enteric tube in the distal stomach. There is no organomegaly. No radiopaque calculi seen however limited. 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 There is mild levoscoliosis lumbar spine with degenerative disc changes and spondylosis seen throughout lumbar spine. X R/XR KUB IMPRESSION: Mild constipation. N o acute process seen. Tip of enteric tube in the distal stomach. Electronically cristiane d by: Jeff Mcnair MD 09/08/2024 09:34 AM EST RP Dictated By: Mr sabrina Mcnair MD Signed By: <Electronically signed by Jeff Mcnair MD in OV> 09/08/24 0934 DD/ 0850 TD/TT: 09/08/24 0901 Unit Nurse: [facility] Troponin-I High Sensitivity Reviewed date:09/08/2024 12:09:04 PM Interpretation: Performing Lab:[facility], [address] [place] [address] Notes/Report: Unable to obtain 2x 1037 09/08/24 Dodestinyinvladimir Troponin-I High Sensitivity 117.1 <3.5-17.0 ng/L Critical troponin sent by a secure message [facility] 1202 Tech: caroline The Cronin high sensitivity Troponin-I results should be used in conjunction with other diagnostic information such as ECG, clinical observations and information, and patient symptoms to aid in the diagnosis of VT. Complete Blood Count no Diff Reviewed date:09/10/2024 02:50:48 PM Interpretation: Performing Lab:[facility], [address] [place] [address] Notes/Report: Unable to obtain x2 attempts [place] 09/09 06 White Blood Count 15.1 4.8-10.8 X10*3/uL Red Blood Count 4.43 4.20-5.50 X10*6/uL Hemoglobin 13.1 12.0-16.0 g/dl Hematocrit 37.7 37.0-47.0 % Mean Corpuscular Volume 85.1 80.0-98.0 fL Mean Corpuscular Hemoglobin 29.6 27.0-33.0 pg Mean Corpuscular HGB Conc 34.7 31.0-35.0 g/dl Red Cell Distribution Width 13.6 11.0-16.0 % Platelet Count 314 160-400 X10*3/uL Mean Platelet Volume 9.6 9.4-12.3 fL NRBC Pct Auto 0.0 0.0-0.2 /100WBC NRBC Abs Auto 0.000 0.0-0.012 X10*3/uL Basic Metabolic Panel Reviewed date:09/10/2024 02:51:37 PM Interpretation: Performing Lab:[address] [address] Notes/Report: Unable to obtain x2 attempts [place] 09/09 0605 Sodium 135 135-145 mmol/L Potassium 3.6 3.3-5.1 mmol/L Chloride 101 96-108 mmol/L Carbon Dioxide 23 22-29 mmol/L Anion Gap 15 12-20 Blood Urea Nitrogen 49 9-16 mg/dL Creatinine 1.64 0.5-1.4 mg/dL Creatinine Clr Calc Pharmacy 27.5 Provided height and weight: 165.1 cm, 91.4 kg. eGFR (calculated from the MDRD study equation) and eCrCl (calculated from the Cockcroft-Gault equation) are based on different parameters and may not yield comparable results. If eCrCl result is absurd, please check patient's height/weight. Estimated Glomerular Filt Rate 30 Chronic Kidney Disease: Estimated GFR < 60 mL/min/1.73m2 Severe Kidney Disease: Estimated GFR < 15 mL/min/1.73m2 Glucose Random 114 60-115 mg/dL Calcium 8.8 8.4-10.2 mg/dL Complete Blood Count no Diff Reviewed date:09/10/2024 02:53:03 PM Interpretation: Performing Lab:[address] [address] Notes/Report: White Blood Count 14.0 4.8-10.8 X10*3/uL Red Blood Count 4.39 4.20-5.50 X10*6/uL Hemoglobin 13.0 12.0-16.0 g/dl Hematocrit 37.6 37.0-47.0 % Mean Corpuscular Volume 85.6 80.0-98.0 fL Mean Corpuscular Hemoglobin 29.6 27.0-33.0 pg Mean Corpuscular HGB Conc 34.6 31.0-35.0 g/dl Red Cell Distribution Width 13.4 11.0-16.0 % Platelet Count 335 160-400 X10*3/uL Mean Platelet Volume 9.6 9.4-12.3 fL NRBC Pct Auto 0.0 0.0-0.2 /100WBC NRBC Abs Auto 0.000 0.0-0.012 X10*3/uL Basic Metabolic Panel Reviewed date:09/10/2024 02:47:59 PM Interpretation: Performing Lab:[address] [address] Notes/Report: Sodium 139 135-145 mmol/L Potassium 3.2 3.3-5.1 mmol/L Chloride 101 96-108 mmol/L Carbon Dioxide 23 22-29 mmol/L Anion Gap 18 12-20 Blood Urea Nitrogen 51 9-16 mg/dL Creatinine 0.97 0.5-1.4 mg/dL Creatinine Clr Calc Pharmacy 46.5 Provided height and weight: 165.1 cm, 91.4 kg. eGFR (calculated from the MDRD study equation) and eCrCl (calculated from the Cockcroft-Gault equation) are based on different parameters and may not yield comparable results. If eCrCl result is absurd, please check patient's height/weight. Estimated Glomerular Filt Rate 54 Chronic Kidney Disease: Estimated GFR < 60 mL/min/1.73m2 Severe Kidney Disease: Estimated GFR < 15 mL/min/1.73m2 Glucose Random 113 60-115 mg/dL Calcium 9.0 8.4-10.2 mg/dL Pathology Reviewed date:09/12/2024 01:54:32 PM Interpretation: Performing Lab:[facility], [address] [place] [address] Notes/Report: ---- Name: Maria Ines Kam Age/Sex: 84/F : 1940 Unit#: [id number] Attend Dr: Kavon Burnham MD Re09/06/24 Status : ADM IN Location: [facility] 352-1 Disch: ---- SPEC : [id number] RECD : 09/11/24 STATUS: MARIALUISA COTTRELL NUM: [id number] BRET: 09/10/[address]: Isabela Lopez MD ENTERED: 09/11/24 SP TYPE: Surgical OTHR DR: Vito Joel MD [facility],Kavon DAWSON ORDERED: Gross Micro L5 Diagnosis Small bowel, segment al resection: Acute ischemic enteritis, patchy, with mucosal erosion, transmural congestion, mural thinning and mild acute serositis. Clinical History Bowel obstruction Microscopic Description Microscopic sections reviewed. Material Received Small bowel Gross Description Received in formalin labeled ?small bowel? is a 51.0 cm in length segment of small bowel with a moderate amou nt of attached congested and hemorrhagic johns, yellow-brown mesenteric adipose tissue. The specimen ranges from 2.2 to 2.5 cm in diameter. The margins of resection are staple d closed. At a point located 1.5 cm from the nearest margin of resection and 3.0 cm from the opposing margin of resection there is a slight stricture in the segment, however , there is no evidence of obstruction or perforation. The serosa is smooth and glistenin g, dusky, purple-maroon. Upon opening the mucosa is mildly edematous, erythematous joseph-ta n and johns-pink. There is a 2.5 cm in length focus where the mucosa is viable, velvety, johns extending to the margin with the nearest stricture. The mucosa extending to the opposing margin is somewhat ischemic, johns-brown extending from the focus with the stricture located 3.0 cm from the margin. Sectioning the segment reveals diffuse submucosal edema, fo papo congestion and hemorrhage with only a mild partial stricture noted at either stricture site. No erosions, ulcers or polyps are identified. Sectioning the mesenteric adipose tissue reveals congested and hemorrhagic yellow, red-maroon fat. Also received is an additional portion of small bowel measuring approximately 1.0 cm in length containing multiple payton with a glistening johns mucosa and focal submucosal congestion and hemorrhage. The segm ent is somewhat fragmented with multiple staple lines and therefore it is difficult to orie nt. Regulatory Attorney sections are submitted labeled as follows: A1 margin of resecti on with the nearest stricture with blue ink identifying the artificial margin located 0.35 cm from the true margin; A2 sections from opposing margin with the further stricture with blue ink to denote the artificial margin located 0.35 cm from the true margin; A3 and A4 random sections from the mid segment of small bowel; CONTINUED ON NEXT PAGE ---- Name: Maria Ines Kam Age/Sex: 84/F : 1940 Unit#: [id number] Attend Dr: Kavon Burnham MD Re09/06/24 Status : ADM IN Location: [facility] 352-1 Disch: ---- SPEC : [id number] RECD : 09/11/24 STATUS: MARIALUISA COTTRELL NUM: [id number] BRET: 09/10/24-1642 [facility] DR: Isabela Lopez MD ENTERED: 09/11/24 SP TYPE: Surgical OTHR DR: Vito Joel MD, Theodore MD ORDERED: Gross Micro L5 Gross Description (Continued) A5 sections at the stricture located 3.0 cm from the margin of resection; A6 and A7 sections f rom the mesentery; A8 sales representative womens health sections from the additionally received portion of small bowel. CEDS Copies To: Vito Joel MD [facility] [address] [address] Kavon Burnham MD [address] [place] [address] [phone] Isabela Lopez MD [facility] [address] [place] [phone] [email or web address] ---- Signed (signature on file) Talia Ricardo MD 09/12/24 1304 ---- END OF REPORT XR KUB Reviewed date:09/10/2024 02:50:05 PM Interpretation: Performing Lab: Notes/Report: [address] [address] XRay Report Signed Patient: Maria Ines Kam MR#: [id number] 983 : 1940 Acct:[id number] Age/Sex: 84 / F ADM Date: 09/06/24 Loc: .S3 352-[address]: Pj Choudhary MD Ordering Physician: Jeff Mcnair MD Date of Service: 09/09/24 Procedure(s): XR KUB Accession Number(s): [id number] cc: Vito Joel MD; Jeff Mcnair MD CLINICAL HISTORY: F U SM BOWEL SERIES 1 view abdomen Comparison: CR - FL SMALL BOWEL FOLLOW THROUGH - 09/08/24 20:12 EST Findings: No pneumoperitoneum or pneumatosis. Dilated contrast filled small bowel noted. Well-positioned NG tube present No abnormal calcifications. No acute fractures. IMPRESSION: No change in the appearance of small-bowel obstruction. Continued follow-up. This document has been electronically signed by: Fito Galindo MD on 09/10/2024 11:07:02 Dictated By: Fito Galindo MD Signed By: <Electronically signed by Fito Galindo MD in OV> 09/10/24 110 DD/ 06 TD/TT: 09/10/241106 Unit Nurse: [address] [address] XRay Report Signed Patient: Armin Kam MR#: [id number] 983 : 1940 Acct:[id number] Age/Sex: 84 / F ADM Date: 09/06/24 Loc: HO.S3 352-[address]: Pj Choudhary MD Ordering Physician: Jeff Mcnair MD Date of Service: 09/09/24 Procedure(s): SKYLER ESPINALB Accession Number(s): [id number] cc: Vito Joel MD; Jeff Mcnair MD CLINICAL HISTORY: F U SM BOWEL SERIES 1 view abdomen Comparison: CR - FL SMALL BOWEL FOLLOW THROUGH - 09/08/24 20:12 EST Findings: No pneumoperitoneum or pneumatosis. Dilated contrast filled small bowel noted. Well-positioned NG t ube present No abnormal calcifications. No acute fractures. IMPRESSION: No change in the appearance of small-bowel obstruction. Continued follow-up. This document has be en electronically signed by: Fito Galindo MD on 09/10/2024 11:07:02 Dictated By: Fito Galindo MD Signed By: <Electronically signed by Fito Galindo MD in OV> 09/10/24 110 DD/ 06 TD/TT: 09/10/241106 Unit Nurse: SKYLER TA Reviewed date:09/10/2024 02:50:29 PM Interpretation: Performing Lab: Notes/Report: [address] [address] XRay Report Signed Patient: Maria Ines Kam MR#: [id number] 983 : 1940 Acct:[id number] Age/Sex: 84 / F ADM Date: 09/06/24 Loc: HO.S3 352-[address]: Pj Choudhary MD Ordering Physician: Isabela Lopez MD Date of Service: 09/10/24 Procedure(s): XR KUB Accession Number(s): [id number] cc: Vito Joel MD; Isabela Lopez MD CLINICAL HISTORY: sbo Radiograph of the abdomen 1 view Comparison: CR - XR KUB - 09/09/24 07:38 EST Findings: 2 films were obtained portably. Again identified is an enteric tube with tip in the proximal duodenum. Redemonstration of multiple opacified small bowel loops in the left and central abdomen with no interval progression since prior. Are surgical clips in the left lower quadrant. Nonspecific bibasilar opacities. Bilateral total hip arthroplasties. Impression: 1. No interval distal progression of enteric contrast in the small bowel compared to prior is consistent with a high-grade small-bowel obstruction. This document has been electronically signed by: Shirley Wahl DO on 09/10/2024 12:48:32 Dictated By: Shirley Wahl MD Signed By: <Electronically signed by Shirley Wahl MD in OV> 09/10/24 1249 DD/ 1248 TD/TT: 09/10/24 1248 Unit Nurse: [place] [address] XRay Report Signed Patient: Armin Kam MR#: [id number] 983 : 1940 Acct:[id number] Age/Sex: 84 / F ADM Date: 09/06/24 Loc: HO.S3 352-[address]: Pj Choudhary MD Ordering Physician: Isabela Lopez MD Date of Service: 09/10/24 Procedure(s): XR KUB Accession Number(s): [id number] cc: Vito Joel MD; Isabela Lopez MD CLINICAL HISTORY: sbo Radiograph of the abdomen 1 view Comparison: CR - XR KUB - 09/09/24 07:38 EST Findings: 2 films were obtaine d portably. Again identified is an enteric tube with tip in the proximal duodenum. Redemonstration of multiple opacified small bowel loops in the left and central abdomen with no interval progression since prior. Are surgical clips i n the left lower quadrant. Nonspecific bibasila r opacities. Bilateral total hip arthroplasties. Impression: 1. No interval dista l progression of enteric contrast in the small bowel compared to prior is consistent with a high-grade small-bowel obstruction. This document has be en electronically signed by: Shirley Wahl DO on 09/10/2024 12:48:32 Dictated By: Shirley Wahl MD Signed By: <Electronically signed by Shirley Wahl MD in OV> 09/10/24 1249 DD/ 1248 TD/TT: 09/10/24 1248 Unit Nurse: Complete Blood Count no Diff Reviewed date:09/11/2024 12:49:09 PM Interpretation: Performing Lab:[facility], [address] [place] [phone] Notes/Report: White Blood Count 14.1 4.8-10.8 X10*3/uL Red Blood Count 4.53 4.20-5.50 X10*6/uL Hemoglobin 13.4 12.0-16.0 g/dl Hematocrit 39.8 37.0-47.0 % Mean Corpuscular Volume 87.9 80.0-98.0 fL Mean Corpuscular Hemoglobin 29.6 27.0-33.0 pg Mean Corpuscular HGB Conc 33.7 31.0-35.0 g/dl Red Cell Distribution Width 13.5 11.0-16.0 % Platelet Count 348 160-400 X10*3/uL Mean Platelet Volume 10.2 9.4-12.3 fL NRBC Pct Auto 0.0 0.0-0.2 /100WBC NRBC Abs Auto 0.000 0.0-0.012 X10*3/uL Basic Metabolic Panel Reviewed date:09/11/2024 12:46:20 PM Interpretation: Performing Lab:[facility], [address] [place] [phone] Notes/Report: Sodium 143 135-145 mmol/L Potassium 3.0 3.3-5.1 mmol/L Chloride 104 96-108 mmol/L Carbon Dioxide 26 22-29 mmol/L Anion Gap 16 12-20 Blood Urea Nitrogen 39 9-16 mg/dL Creatinine 0.69 0.5-1.4 mg/dL Creatinine Clr Calc Pharmacy 65.4 Provided height and weight: 165.1 cm, 91.4 kg. eGFR (calculated from the MDRD study equation) and eCrCl (calculated from the Cockcroft-Gault equation) are based on different parameters and may not yield comparable results. If eCrCl result is absurd, please check patient's height/weight. Estimated Glomerular Filt Rate > 60 Chronic Kidney Disease: Estimated GFR < 60 mL/min/1.73m2 Severe Kidney Disease: Estimated GFR < 15 mL/min/1.73m2 Glucose Random 84 60-115 mg/dL Calcium 8.4 8.4-10.2 mg/dL Electrolytes Reviewed date:09/12/2024 12:25:43 PM Interpretation: Performing Lab:[address] [address] Notes/Report: Sodium 143 135-145 mmol/L Potassium 3.4 3.3-5.1 mmol/L Chloride 105 96-108 mmol/L Carbon Dioxide 30 22-29 mmol/L Anion Gap 11 12-20 Phosphorus Reviewed date:09/11/2024 12:46:12 PM Interpretation: Performing Lab:[address] [address] Notes/Report: Phosphorus 2.8 2.7-4.5 mg/dL Magnesium Reviewed date:09/11/2024 12:46:04 PM Interpretation: Performing Lab:[address] [address] Notes/Report: Magnesium 2.4 1.6-2.6 mg/dL Albumin Level Reviewed date:09/11/2024 12:45:57 PM Interpretation: Performing Lab:[address] [address] Notes/Report: Albumin Level 2.8 3.5-5.0 g/dL Triglycerides Reviewed date:09/11/2024 12:45:50 PM Interpretation: Performing Lab:[address] [address] Notes/Report: Triglycerides 117 <150 mg/dL Desirable Triglyceride: less than 150 mg/dL Borderline High Triglyceride 150-199 mg/dL High Triglyceride: 200-499 mg/dL Very High Triglyceride: greater than or equal to 5OO mg/dL Hold Green Gel Reviewed date:09/11/2024 06:02:58 PM Interpretation: Performing Lab:[facility], [address] [place] [phone] Notes/Report: Hold Green Gel See Note Specimen held untested for 24 hours; Call to request Chemistry testing. Complete Blood Count no Diff Reviewed date:09/12/2024 01:55:00 PM Interpretation: Performing Lab:[facility], [address] [place] [phone] Notes/Report: White Blood Count 10.9 4.8-10.8 X10*3/uL Red Blood Count 4.08 4.20-5.50 X10*6/uL Hemoglobin 12.0 12.0-16.0 g/dl Hematocrit 35.9 37.0-47.0 % Mean Corpuscular Volume 88.0 80.0-98.0 fL Mean Corpuscular Hemoglobin 29.4 27.0-33.0 pg Mean Corpuscular HGB Conc 33.4 31.0-35.0 g/dl Red Cell Distribution Width 13.5 11.0-16.0 % Platelet Count 288 160-400 X10*3/uL Mean Platelet Volume 9.9 9.4-12.3 fL NRBC Pct Auto 0.0 0.0-0.2 /100WBC NRBC Abs Auto 0.000 0.0-0.012 X10*3/uL Basic Metabolic Panel Reviewed date:09/12/2024 12:38:34 PM Interpretation: Performing Lab:[facility], [address] [place] [phone] Notes/Report: Sodium 142 135-145 mmol/L Potassium 3.6 3.3-5.1 mmol/L Chloride 107 96-108 mmol/L Carbon Dioxide 28 22-29 mmol/L Anion Gap 11 12-20 Blood Urea Nitrogen 26 9-16 mg/dL Creatinine 0.60 0.5-1.4 mg/dL Creatinine Clr Calc Pharmacy 75.1 Provided height and weight: 165.1 cm, 91.4 kg. eGFR (calculated from the MDRD study equation) and eCrCl (calculated from the Cockcroft-Gault equation) are based on different parameters and may not yield comparable results. If eCrCl result is absurd, please check patient's height/weight. Estimated Glomerular Filt Rate > 60 Chronic Kidney Disease: Estimated GFR < 60 mL/min/1.73m2 Severe Kidney Disease: Estimated GFR < 15 mL/min/1.73m2 Glucose Random 158 60-115 mg/dL Calcium 8.5 8.4-10.2 mg/dL Phosphorus Reviewed date:09/12/2024 12:20:25 PM Interpretation: Performing Lab:[facility], [address] [place] [phone] Notes/Report: Phosphorus 1.6 2.7-4.5 mg/dL Magnesium Reviewed date:09/12/2024 12:19:46 PM Interpretation: Performing Lab:[facility], [address] [place] [phone] Notes/Report: Magnesium 2.4 1.6-2.6 mg/dL Albumin Level Reviewed date:09/12/2024 12:15:39 PM Interpretation: Performing Lab:[facility], [address] [place] [phone] Notes/Report: Albumin Level 2.6 3.5-5.0 g/dL Glucose, Whole Blood Reviewed date:09/12/2024 12:15:20 PM Interpretation: Performing Lab:[facility], [address] [place] [phone] Notes/Report: Glucose, Whole Blood 142 60-115 mg/dL METER # : [id number] Glucose, Whole Blood Reviewed date:09/13/2024 07:01:40 PM Interpretation: Performing Lab:[address] [address] Notes/Report: Glucose, Whole Blood 120 60-115 mg/dL METER # : [id number] Glucose, Whole Blood Reviewed date:09/13/2024 07:01:40 PM Interpretation: Performing Lab:[facility], [address] [place] [phone] Notes/Report: Glucose, Whole Blood 123 60-115 mg/dL METER # : [id number] Complete Blood Count no Diff Reviewed date:09/13/2024 07:01:40 PM Interpretation: Performing Lab:[facility], [address] [place] [phone] Notes/Report: White Blood Count 9.9 4.8-10.8 X10*3/uL Red Blood Count 3.91 4.20-5.50 X10*6/uL Hemoglobin 11.4 12.0-16.0 g/dl Hematocrit 34.8 37.0-47.0 % Mean Corpuscular Volume 89.0 80.0-98.0 fL Mean Corpuscular Hemoglobin 29.2 27.0-33.0 pg Mean Corpuscular HGB Conc 32.8 31.0-35.0 g/dl Red Cell Distribution Width 13.7 11.0-16.0 % Platelet Count 302 160-400 X10*3/uL Mean Platelet Volume 10.2 9.4-12.3 fL NRBC Pct Auto 0.0 0.0-0.2 /100WBC NRBC Abs Auto 0.000 0.0-0.012 X10*3/uL Basic Metabolic Panel Reviewed date:09/13/2024 07:01:40 PM Interpretation: Performing Lab:[facility], [address] [place] [phone] Notes/Report: Sodium 140 135-145 mmol/L Potassium 3.8 3.3-5.1 mmol/L Chloride 108 96-108 mmol/L Carbon Dioxide 26 22-29 mmol/L Anion Gap 10 12-20 Blood Urea Nitrogen 23 9-16 mg/dL Creatinine 0.54 0.5-1.4 mg/dL Creatinine Clr Calc Pharmacy 83.5 Provided height and weight: 165.1 cm, 91.4 kg. eGFR (calculated from the MDRD study equation) and eCrCl (calculated from the Cockcroft-Gault equation) are based on different parameters and may not yield comparable results. If eCrCl result is absurd, please check patient's height/weight. Estimated Glomerular Filt Rate > 60 Chronic Kidney Disease: Estimated GFR < 60 mL/min/1.73m2 Severe Kidney Disease: Estimated GFR < 15 mL/min/1.73m2 Glucose Random 153 60-115 mg/dL Calcium 8.4 8.4-10.2 mg/dL Phosphorus Reviewed date:09/13/2024 07:01:40 PM Interpretation: Performing Lab:[facility], [address] [place] [address] Notes/Report: Phosphorus 3.3 2.7-4.5 mg/dL Magnesium Reviewed date:09/13/2024 07:01:40 PM Interpretation: Performing Lab:[facility], [address] [place] [phone] Notes/Report: Magnesium 2.3 1.6-2.6 mg/dL Albumin Level Reviewed date:09/13/2024 07:01:40 PM Interpretation: Performing Lab:[facility], [address] [place] [phone] Notes/Report: Albumin Level 2.5 3.5-5.0 g/dL Glucose, Whole Blood Reviewed date:09/13/2024 07:01:40 PM Interpretation: Performing Lab:[facility], [address] [place] [address] Notes/Report: Glucose, Whole Blood 147 60-115 mg/dL METER # : [id number] XR chest 1V Reviewed date:09/14/2024 12:39:53 PM Interpretation: Performing Lab: Notes/Report: [address] [address] XRay Report Signed Patient: Maria Ines Kam MR#: [id number] 983 : 1940 Acct:[id number] Age/Sex: 84 / F ADM Date: 09/06/24 Loc: HO.S3 352-[address]: Kavon Burnham MD Ordering Physician: Jesus Galaviz MD Date of Service: 09/13/24 Procedure(s): XR chest 1V Accession Number(s): [id number] cc: Vito Joel MD; Jesus Galaviz MD CLINICAL HISTORY: NG Tube placement 1 view chest x-ray Comparison: CR - XR CHEST 1V - 09/07/24 22:38 EST Findings: There is likely a layering right pleural effusion. Heart size at the upper limits. No acute fracture. IMPRESSION: 1. NG tube is partially coiled at the distal esophagus. 2. Probable right effusion. Follow-up as needed. This document has been electronically signed by: Hilton Phillip MD on 09/13/2024 23:27:30 Dictated By: Hilton Phillip MD Signed By: <Electronically signed by Hilton Phillip MD in OV> 09/13/242327 DD/ 26 TD/TT: 09/13/242326 Unit Nurse: [address] [place] [address] XRay Report Signed Patient: Armin Kam MR#: [id number] 983 : 1940 Acct:[id number] Age/Sex: 84 / F ADM Date: 09/06/24 Loc: [facility] 352-[address]: Xavier Burnham MD Ordering Physician: Jesus Galaviz MD Date of Service: 09/13/24 Procedure(s): XR jose st 1V Accession Number(s): [id number] cc: Vito Joel MD; Jesus Galaviz MD CLINICAL HISTORY: NG Tube placement 1 view chest x-ray Comparison: CR - XR CHEST 1V - 09/07/24 22:38 EST Findings: There is likely a layering right pleural effusion. Heart size at the up per limits. No acute fracture. IMPRESSION: 1. NG tube is partia lly coiled at the distal esophagus. 2. Probable right effusion. Follow-up as needed. This document has be en electronically signed by: Hilton Phillip MD on 09/13/2024 23:27:30 Dictated By: Hilton Phillip MD Signed By: <Electronically signed by Hilton Phillip MD in OV> 09/13/242327 DD/ 26 TD/TT: 09/13/242326 Unit Nurse: Glucose, Whole Blood Reviewed date:09/13/2024 07:01:40 PM Interpretation: Performing Lab:[facility], [address] [place] [phone] Notes/Report: Glucose, Whole Blood 142 60-115 mg/dL METER # : [id number] Glucose, Whole Blood Reviewed date:09/13/2024 07:01:40 PM Interpretation: Performing Lab:[facility], [address] [place] [phone] Notes/Report: Glucose, Whole Blood 111 60-115 mg/dL METER # : [id number] Glucose, Whole Blood Reviewed date:09/14/2024 12:39:53 PM Interpretation: Performing Lab:[facility], [address] [place] [phone] Notes/Report: Glucose, Whole Blood 123 60-115 mg/dL METER # : [id number] XR chest 1V Reviewed date:09/14/2024 12:39:53 PM Interpretation: Performing Lab: Notes/Report: [address] [address] XRay Report Signed Patient: Maria Ines Kam MR#: [id number] 983 : 1940 Acct:[id number] Age/Sex: 84 / F ADM Date: 09/06/24 Loc: HO.S3 352-[address]: Kavon Burnham MD Ordering Physician: Jesus Galaviz MD Date of Service: 09/13/24 Procedure(s): XR chest 1V Accession Number(s): [id number] cc: Vito Joel MD; Jesus Galaviz MD CLINICAL HISTORY: NGT placenent 2nd attempt 1 view chest x-ray Comparison: CR - XR CHEST 1V - 09/13/24 22:15 EDT Findings: Layering right pleural effusion again noted. Heart size at the upper limits. No acute fracture. IMPRESSION: NG tube repositioned. Distal side hole at the gastroesophageal junction and catheter is no within the upper stomach. This document has been electronically signed by: Hilton Phillip MD on 09/13/2024 23:41:21 Dictated By: Hilton Phillip MD Signed By: <Electronically signed by Hilton Phillip MD in OV> 09/13/24 2343 DD/DT: 032340 TD/TT: 09/13/242340 Unit Nurse: [facility] [address] [place] [address] XRay Report Signed Patient: Armin Kam MR#: [id number] 983 : 1940 Acct:[id number] Age/Sex: 84 / F ADM Date: 09/06/24 Loc: HO.S3 352-[address]: Xavier Burnham MD Ordering Physician: Jesus Galaviz MD Date of Service: 09/13/24 Procedure(s): XR jose st 1V Accession Number(s): [id number] cc: Vito Joel MD; Jesus Galaviz MD CLINICAL HISTORY: NG T placenent 2nd attempt 1 view chest x-ray Comparison: CR - XR CHEST 1V - 09/13/24 22:15 EDT Findings: Layering right pleur al effusion again noted. Heart size at the up per limits. No acute fracture. IMPRESSION: NG tube repositioned . Distal side hole at the gastroesophageal junction and catheter is no within the upper stomach. This document has be en electronically signed by: Hilton Phillip MD on 09/13/2024 23:41:21 Dictated By: Hilton Phillip MD Signed By: <Electronically signed by Hilton Phillip MD in OV> 09/13/242342 DD/ 40 TD/TT: 09/13/242340 Unit Nurse: Complete Blood Count no Diff Reviewed date:09/14/2024 12:39:53 PM Interpretation: Performing Lab:[facility], [address] [place] [address] Notes/Report: White Blood Count 11.0 4.8-10.8 X10*3/uL Red Blood Count 4.16 4.20-5.50 X10*6/uL Hemoglobin 12.2 12.0-16.0 g/dl Hematocrit 36.3 37.0-47.0 % Mean Corpuscular Volume 87.3 80.0-98.0 fL Mean Corpuscular Hemoglobin 29.3 27.0-33.0 pg Mean Corpuscular HGB Conc 33.6 31.0-35.0 g/dl Red Cell Distribution Width 13.7 11.0-16.0 % Platelet Count 326 160-400 X10*3/uL Mean Platelet Volume 10.1 9.4-12.3 fL NRBC Pct Auto 0.0 0.0-0.2 /100WBC NRBC Abs Auto 0.000 0.0-0.012 X10*3/uL Basic Metabolic Panel Reviewed date:09/14/2024 12:39:53 PM Interpretation: Performing Lab:[address] [address] Notes/Report: Sodium 140 135-145 mmol/L Potassium 4.3 3.3-5.1 mmol/L Chloride 107 96-108 mmol/L Carbon Dioxide 26 22-29 mmol/L Anion Gap 11 12-20 Blood Urea Nitrogen 23 9-16 mg/dL Creatinine 0.55 0.5-1.4 mg/dL Creatinine Clr Calc Pharmacy 81.9 Provided height and weight: 165.1 cm, 91.4 kg. eGFR (calculated from the MDRD study equation) and eCrCl (calculated from the Cockcroft-Gault equation) are based on different parameters and may not yield comparable results. If eCrCl result is absurd, please check patient's height/weight. Estimated Glomerular Filt Rate > 60 Chronic Kidney Disease: Estimated GFR < 60 mL/min/1.73m2 Severe Kidney Disease: Estimated GFR < 15 mL/min/1.73m2 Glucose Random 122 60-115 mg/dL Calcium 9.1 8.4-10.2 mg/dL Phosphorus Reviewed date:09/14/2024 12:39:53 PM Interpretation: Performing Lab:[address] [address] Notes/Report: Phosphorus 4.0 2.7-4.5 mg/dL Magnesium Reviewed date:09/14/2024 12:39:53 PM Interpretation: Performing Lab:[address] [address] Notes/Report: Magnesium 2.3 1.6-2.6 mg/dL Albumin Level Reviewed date:09/14/2024 12:39:53 PM Interpretation: Performing Lab:[facility], [address] [place] [phone] Notes/Report: Albumin Level 2.7 3.5-5.0 g/dL Glucose, Whole Blood Reviewed date:09/14/2024 12:39:53 PM Interpretation: Performing Lab:[facility], [address] [place] [phone] Notes/Report: Glucose, Whole Blood 133 60-115 mg/dL METER # : [id number] Glucose, Whole Blood Reviewed date:09/14/2024 12:36:25 PM Interpretation: Performing Lab:[facility], [address] [place] [phone] Notes/Report: Glucose, Whole Blood 117 60-115 mg/dL METER # : [id number] Glucose, Whole Blood Reviewed date:09/15/2024 09:58:24 AM Interpretation: Performing Lab:[facility], [address] [place] [phone] Notes/Report: Glucose, Whole Blood 113 60-115 mg/dL METER # : [id number] Glucose, Whole Blood Reviewed date:09/15/2024 12:23:20 PM Interpretation: Performing Lab:[facility], [address] [place] [phone] Notes/Report: Glucose, Whole Blood 126 60-115 mg/dL METER # : [id number] Comprehensive Met. Panel Reviewed date:09/15/2024 12:23:19 PM Interpretation: Performing Lab:[facility], [address] [place] [phone] Notes/Report: Sodium 139 135-145 mmol/L Potassium 4.5 3.3-5.1 mmol/L Slight Hemolysis.Interpret result with caution. Chloride 108 96-108 mmol/L Carbon Dioxide 22 22-29 mmol/L Anion Gap 14 12-20 Blood Urea Nitrogen 24 9-16 mg/dL Creatinine 0.55 0.5-1.4 mg/dL Creatinine Clr Calc Pharmacy 81.9 Provided height and weight: 165.1 cm, 91.4 kg. eGFR (calculated from the MDRD study equation) and eCrCl (calculated from the Cockcroft-Gault equation) are based on different parameters and may not yield comparable results. If eCrCl result is absurd, please check patient's height/weight. Estimated Glomerular Filt Rate > 60 Chronic Kidney Disease: Estimated GFR < 60 mL/min/1.73m2 Severe Kidney Disease: Estimated GFR < 15 mL/min/1.73m2 Glucose Random 132 60-115 mg/dL Calcium 9.1 8.4-10.2 mg/dL Bilirubin Total 0.2 0.0-1.0 mg/dL Aspartate Amino Transferase 55 5-31 U/L Slight Hemolysis.Interpret result with caution. Alanine Aminotransferase 35 0-31 U/L Total Protein 5.8 6.5-8.0 g/dL Albumin Level 2.8 3.5-5.0 g/dL Alkaline Phosphatase 121 39-117 U/L Basic Metabolic Panel Reviewed date:09/15/2024 12:23:19 PM Interpretation: Performing Lab:[facility], [address] [place] [phone] Notes/Report: Sodium 140 135-145 mmol/L Potassium 4.7 3.3-5.1 mmol/L Chloride 107 96-108 mmol/L Carbon Dioxide 26 22-29 mmol/L Anion Gap 12 12-20 Blood Urea Nitrogen 25 9-16 mg/dL Creatinine 0.55 0.5-1.4 mg/dL Creatinine Clr Calc Pharmacy 81.9 Provided height and weight: 165.1 cm, 91.4 kg. eGFR (calculated from the MDRD study equation) and eCrCl (calculated from the Cockcroft-Gault equation) are based on different parameters and may not yield comparable results. If eCrCl result is absurd, please check patient's height/weight. Estimated Glomerular Filt Rate > 60 Chronic Kidney Disease: Estimated GFR < 60 mL/min/1.73m2 Severe Kidney Disease: Estimated GFR < 15 mL/min/1.73m2 Glucose Random 166 60-115 mg/dL Calcium 9.2 8.4-10.2 mg/dL Phosphorus Reviewed date:09/15/2024 12:23:19 PM Interpretation: Performing Lab:[facility], [address] [place] [phone] Notes/Report: Phosphorus 4.0 2.7-4.5 mg/dL Magnesium Reviewed date:09/15/2024 12:23:19 PM Interpretation: Performing Lab:[facility], [address] [place] [phone] Notes/Report: Magnesium 2.3 1.6-2.6 mg/dL Albumin Level Reviewed date:09/15/2024 12:23:20 PM Interpretation: Performing Lab:[facility], [address] [place] [phone] Notes/Report: Albumin Level 2.8 3.5-5.0 g/dL Glucose, Whole Blood Reviewed date:09/15/2024 12:23:20 PM Interpretation: Performing Lab:[facility], [address] [place] [address] Notes/Report: Glucose, Whole Blood 136 60-115 mg/dL METER # : [id number] Glucose, Whole Blood Reviewed date:09/15/2024 12:44:30 PM Interpretation: Performing Lab:[facility], [address] [place] [phone] Notes/Report: Glucose, Whole Blood 119 60-115 mg/dL METER # : [id number] Glucose, Whole Blood Reviewed date:09/17/2024 05:17:50 PM Interpretation: Performing Lab:[facility], [address] [place] [phone] Notes/Report: Glucose, Whole Blood 93 60-115 mg/dL METER # : [id number] Glucose, Whole Blood Reviewed date:09/17/2024 05:17:50 PM Interpretation: Performing Lab:[facility], [address] [place] [phone] Notes/Report: Glucose, Whole Blood 131 60-115 mg/dL METER # : [id number] Basic Metabolic Panel Reviewed date:09/17/2024 05:17:50 PM Interpretation: Performing Lab:[facility], [address] [place] [phone] Notes/Report: Sodium 140 135-145 mmol/L Potassium 4.2 3.3-5.1 mmol/L Chloride 108 96-108 mmol/L Carbon Dioxide 24 22-29 mmol/L Anion Gap 12 12-20 Blood Urea Nitrogen 26 9-16 mg/dL Creatinine 0.56 0.5-1.4 mg/dL Creatinine Clr Calc Pharmacy 80.5 Provided height and weight: 165.1 cm, 91.4 kg. eGFR (calculated from the MDRD study equation) and eCrCl (calculated from the Cockcroft-Gault equation) are based on different parameters and may not yield comparable results. If eCrCl result is absurd, please check patient's height/weight. Estimated Glomerular Filt Rate > 60 Chronic Kidney Disease: Estimated GFR < 60 mL/min/1.73m2 Severe Kidney Disease: Estimated GFR < 15 mL/min/1.73m2 Glucose Random 133 60-115 mg/dL Calcium 9.0 8.4-10.2 mg/dL Phosphorus Reviewed date:09/17/2024 05:17:50 PM Interpretation: Performing Lab:[address] [address] Notes/Report: Phosphorus 3.6 2.7-4.5 mg/dL Magnesium Reviewed date:09/17/2024 05:17:50 PM Interpretation: Performing Lab:[address] [address] Notes/Report: Magnesium 2.3 1.6-2.6 mg/dL Albumin Level Reviewed date:09/17/2024 05:17:50 PM Interpretation: Performing Lab:[address] [address] Notes/Report: Albumin Level 2.9 3.5-5.0 g/dL Glucose, Whole Blood Reviewed date:09/17/2024 05:17:50 PM Interpretation: Performing Lab:[address] [address] Notes/Report: Glucose, Whole Blood 126 60-115 mg/dL METER # : [id number] Glucose, Whole Blood Reviewed date:09/17/2024 05:17:50 PM Interpretation: Performing Lab:[address] [address] Notes/Report: Glucose, Whole Blood 133 60-115 mg/dL METER # : [id number] Glucose, Whole Blood Reviewed date:09/17/2024 05:17:50 PM Interpretation: Performing Lab:[address] [address] Notes/Report: Glucose, Whole Blood 137 60-115 mg/dL METER # : [id number] Glucose, Whole Blood Reviewed date:09/17/2024 05:17:50 PM Interpretation: Performing Lab:[facility], [address] [place] [phone] Notes/Report: Glucose, Whole Blood 131 60-115 mg/dL METER # : [id number] Basic Metabolic Panel Reviewed date:09/17/2024 05:17:50 PM Interpretation: Performing Lab:[facility], [address] [place] [phone] Notes/Report: Sodium 140 135-145 mmol/L Potassium 4.4 3.3-5.1 mmol/L Chloride 109 96-108 mmol/L Carbon Dioxide 23 22-29 mmol/L Anion Gap 12 12-20 Blood Urea Nitrogen 25 9-16 mg/dL Creatinine 0.59 0.5-1.4 mg/dL Creatinine Clr Calc Pharmacy 76.4 Provided height and weight: 165.1 cm, 91.4 kg. eGFR (calculated from the MDRD study equation) and eCrCl (calculated from the Cockcroft-Gault equation) are based on different parameters and may not yield comparable results. If eCrCl result is absurd, please check patient's height/weight. Estimated Glomerular Filt Rate > 60 Chronic Kidney Disease: Estimated GFR < 60 mL/min/1.73m2 Severe Kidney Disease: Estimated GFR < 15 mL/min/1.73m2 Glucose Random 134 60-115 mg/dL Calcium 8.8 8.4-10.2 mg/dL Phosphorus Reviewed date:09/17/2024 05:17:50 PM Interpretation: Performing Lab:[facility], [address] [place] [phone] Notes/Report: Phosphorus 3.6 2.7-4.5 mg/dL Magnesium Reviewed date:09/17/2024 05:17:50 PM Interpretation: Performing Lab:[facility], [address] [place] [phone] Notes/Report: Magnesium 2.1 1.6-2.6 mg/dL Albumin Level Reviewed date:09/17/2024 05:17:50 PM Interpretation: Performing Lab:[facility], [address] [place] [phone] Notes/Report: Albumin Level 2.9 3.5-5.0 g/dL Glucose, Whole Blood Reviewed date:09/17/2024 05:17:50 PM Interpretation: Performing Lab:[facility], [address] [place] [phone] Notes/Report: Glucose, Whole Blood 126 60-115 mg/dL METER # : [id number] Glucose, Whole Blood Reviewed date:09/17/2024 05:17:50 PM Interpretation: Performing Lab:[facility], [address] [place] [phone] Notes/Report: Glucose, Whole Blood 100 60-115 mg/dL METER # : [id number] Glucose, Whole Blood Reviewed date:09/18/2024 12:00:44 PM Interpretation: Performing Lab:[facility], [address] [place] [phone] Notes/Report: Glucose, Whole Blood 111 60-115 mg/dL METER # : [id number] Glucose, Whole Blood Reviewed date:09/18/2024 12:00:44 PM Interpretation: Performing Lab:[facility], [address] [place] [phone] Notes/Report: Glucose, Whole Blood 111 60-115 mg/dL METER # : [id number] Hold Lav - Possible Hematolo gy Reviewed date:09/18/2024 12:00:44 PM Interpretation: Performing Lab:[facility], [address] [place] [phone] Notes/Report: Hold Lav - Possible Hematology SEE NOTE Specimen will be held untested for 8 hours. Call Hematology if testing is desired. Basic Metabolic Panel Reviewed date:09/18/2024 12:00:44 PM Interpretation: Performing Lab:[facility], [address] [place] [phone] Notes/Report: Sodium 136 135-145 mmol/L Potassium 4.4 3.3-5.1 mmol/L Chloride 109 96-108 mmol/L Carbon Dioxide 20 22-29 mmol/L Anion Gap 11 12-20 Blood Urea Nitrogen 26 9-16 mg/dL Creatinine 0.56 0.5-1.4 mg/dL Creatinine Clr Calc Pharmacy 80.5 Provided height and weight: 165.1 cm, 91.4 kg. eGFR (calculated from the MDRD study equation) and eCrCl (calculated from the Cockcroft-Gault equation) are based on different parameters and may not yield comparable results. If eCrCl result is absurd, please check patient's height/weight. Estimated Glomerular Filt Rate > 60 Chronic Kidney Disease: Estimated GFR < 60 mL/min/1.73m2 Severe Kidney Disease: Estimated GFR < 15 mL/min/1.73m2 Glucose Random 125 60-115 mg/dL Calcium 8.7 8.4-10.2 mg/dL Phosphorus Reviewed date:09/18/2024 12:00:44 PM Interpretation: Performing Lab:[address] [phone] Notes/Report: Phosphorus 3.3 2.7-4.5 mg/dL Magnesium Reviewed date:09/18/2024 12:00:44 PM Interpretation: Performing Lab:[address] [phone] Notes/Report: Magnesium 2.1 1.6-2.6 mg/dL Albumin Level Reviewed date:09/18/2024 12:00:05 PM Interpretation: Performing Lab:[address] [phone] Notes/Report: Albumin Level 2.7 3.5-5.0 g/dL Triglycerides Reviewed date:09/18/2024 12:00:44 PM Interpretation: Performing Lab:[address] [address] Notes/Report: Triglycerides 241 <150 mg/dL Desirable Triglyceride: less than 150 mg/dL Borderline High Triglyceride 150-199 mg/dL High Triglyceride: 200-499 mg/dL Very High Triglyceride: greater than or equal to 5OO mg/dL Glucose, Whole Blood Reviewed date:09/18/2024 12:00:44 PM Interpretation: Performing Lab:[address] [phone] Notes/Report: Glucose, Whole Blood 137 60-115 mg/dL METER # : [id number] Glucose, Whole Blood Reviewed date:09/18/2024 12:08:03 PM Interpretation: Performing Lab:[facility], [address] [place] [phone] Notes/Report: Glucose, Whole Blood 139 60-115 mg/dL METER # : [id number] Glucose, Whole Blood Reviewed date:09/19/2024 10:03:03 AM Interpretation: Performing Lab:[facility], [address] [place] [phone] Notes/Report: Glucose, Whole Blood 120 60-115 mg/dL METER # : [id number] Glucose, Whole Blood Reviewed date:09/19/2024 10:03:03 AM Interpretation: Performing Lab:[facility], [address] [place] [phone] Notes/Report: Glucose, Whole Blood 110 60-115 mg/dL METER # : [id number] Hold Lav - Possible Hematolo gy Reviewed date:09/19/2024 10:03:03 AM Interpretation: Performing Lab:[facility], [address] [place] [phone] Notes/Report: Hold Lav - Possible Hematology SEE NOTE Specimen will be held untested for 8 hours. Call Hematology if testing is desired. Basic Metabolic Panel Reviewed date:09/19/2024 10:03:03 AM Interpretation: Performing Lab:[facility], [address] [place] [phone] Notes/Report: Sodium 133 135-145 mmol/L Potassium 4.1 3.3-5.1 mmol/L Chloride 106 96-108 mmol/L Carbon Dioxide 20 22-29 mmol/L Anion Gap 11 12-20 Blood Urea Nitrogen 19 9-16 mg/dL Creatinine 0.52 0.5-1.4 mg/dL Creatinine Clr Calc Pharmacy 86.7 Provided height and weight: 165.1 cm, 91.4 kg. eGFR (calculated from the MDRD study equation) and eCrCl (calculated from the Cockcroft-Gault equation) are based on different parameters and may not yield comparable results. If eCrCl result is absurd, please check patient's height/weight. Estimated Glomerular Filt Rate > 60 Chronic Kidney Disease: Estimated GFR < 60 mL/min/1.73m2 Severe Kidney Disease: Estimated GFR < 15 mL/min/1.73m2 Glucose Random 119 60-115 mg/dL Calcium 8.3 8.4-10.2 mg/dL Phosphorus Reviewed date:09/19/2024 10:03:03 AM Interpretation: Performing Lab:[facility], [address] [place] [phone] Notes/Report: Phosphorus 3.1 2.7-4.5 mg/dL Magnesium Reviewed date:09/19/2024 10:03:03 AM Interpretation: Performing Lab:[facility], [address] [place] [phone] Notes/Report: Magnesium 1.9 1.6-2.6 mg/dL Albumin Level Reviewed date:09/19/2024 10:03:03 AM Interpretation: Performing Lab:[facility], [address] [place] [phone] Notes/Report: Albumin Level 2.6 3.5-5.0 g/dL Glucose, Whole Blood Reviewed date:09/19/2024 10:03:03 AM Interpretation: Performing Lab:[facility], [address] [place] [phone] Notes/Report: Glucose, Whole Blood 126 60-115 mg/dL METER # : [id number] Glucose, Whole Blood Reviewed date:09/19/2024 12:02:47 PM Interpretation: Performing Lab:[facility], [address] [place] [phone] Notes/Report: Glucose, Whole Blood 138 60-115 mg/dL METER # : [id number] Glucose, Whole Blood Reviewed date:09/20/2024 03:15:40 PM Interpretation: Performing Lab:[facility], [address] [place] [phone] Notes/Report: Glucose, Whole Blood 107 60-115 mg/dL METER # : [id number] Glucose, Whole Blood Reviewed date:09/20/2024 03:16:10 PM Interpretation: Performing Lab:[facility], [address] [place] [phone] Notes/Report: Glucose, Whole Blood 130 60-115 mg/dL METER # : [id number] Basic Metabolic Panel Reviewed date:09/20/2024 03:16:10 PM Interpretation: Performing Lab:[facility], [address] [place] [phone] Notes/Report: Sodium 134 135-145 mmol/L Potassium 3.8 3.3-5.1 mmol/L Chloride 105 96-108 mmol/L Carbon Dioxide 23 22-29 mmol/L Anion Gap 10 12-20 Blood Urea Nitrogen 17 9-16 mg/dL Creatinine 0.57 0.5-1.4 mg/dL Creatinine Clr Calc Pharmacy 79.1 Provided height and weight: 165.1 cm, 91.4 kg. eGFR (calculated from the MDRD study equation) and eCrCl (calculated from the Cockcroft-Gault equation) are based on different parameters and may not yield comparable results. If eCrCl result is absurd, please check patient's height/weight. Estimated Glomerular Filt Rate > 60 Chronic Kidney Disease: Estimated GFR < 60 mL/min/1.73m2 Severe Kidney Disease: Estimated GFR < 15 mL/min/1.73m2 Glucose Random 88 60-115 mg/dL Calcium 8.5 8.4-10.2 mg/dL Phosphorus Reviewed date:09/20/2024 03:13:29 PM Interpretation: Performing Lab:[facility], [address] [place] [phone] Notes/Report: Phosphorus 3.1 2.7-4.5 mg/dL Magnesium Reviewed date:09/20/2024 03:13:21 PM Interpretation: Performing Lab:[facility], [address] [place] [phone] Notes/Report: Magnesium 1.9 1.6-2.6 mg/dL Albumin Level Reviewed date:09/20/2024 03:13:14 PM Interpretation: Performing Lab:[facility], [address] [place] [phone] Notes/Report: Albumin Level 2.8 3.5-5.0 g/dL Glucose, Whole Blood Reviewed date:09/20/2024 03:16:10 PM Interpretation: Performing Lab:[facility], [address] [place] [phone] Notes/Report: Glucose, Whole Blood 93 60-115 mg/dL METER # : [id number] CDiff Gene PCR Reviewed date:09/20/2024 03:13:07 PM Interpretation: Performing Lab:[facility], [address] [place] [phone] Notes/Report: CDiff Gene PCR NEGATIVE Negative If C. difficile strongly suspected despite one negative test, a second test may be sent vs. empiric treatment for C. difficile infection. Glucose, Whole Blood Reviewed date:09/20/2024 03:16:10 PM Interpretation: Performing Lab:[facility], [address] [place] [phone] Notes/Report: Glucose, Whole Blood 96 60-115 mg/dL METER # : [id number] Glucose, Whole Blood Reviewed date:09/20/2024 03:16:09 PM Interpretation: Performing Lab:[facility], [address] [place] [phone] Notes/Report: Glucose, Whole Blood 105 60-115 mg/dL METER # : [id number] Reason For Referral No Information Medications Medication SIG (Take, Route, Frequency, Duration) Notes Start Date End Date Status Aspir-81 81 MG 1 tablet Orally Once a day for 30 day(s) Active Molnupiravir 200 MG 4 capsules Orally ev dara 12 hrs for 5 day(s) 03/23/2024 Active Lisinopril-hydroCHLOROthi azide 10-12.5 MG TAKE 1 TABLET ONCE DAILY for 90 Active Atorvastatin Calcium 80 MG TAKE 1 TABLET DAILY Orally Once a day Active Nystatin-Triamcinolone 356881-4.1 UNIT/GM 1 application to affected area Externally [...] pt was given the vaccine at [facility] in [place]. 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 (646608309) Diabetic autonomic neuropathy associated with type 2 diabetes mellitus (E11.43) Active confirmed Problem 087898757 History of endom etrial cancer (Z85.42) Active confirmed Problem 823668916 Pure hypercholesterolemia (E78.00) Active confirmed Problem 678460372 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) Active confirmed Problem Intermittent spinal claudication (740403291) Intermittent spinal claudication (G95.19) Active confirmed Vital Signs Blood pressure diastolic 64 mm Hg 07/13/2024 Height 65.25 in 07/13/2024 Blood pressure systolic 142 mm Hg 07/13/2024 Weight 182 lbs 07/13/2024 BMI 30.05 kg/m2 07/13/2024 Encounters Encounter Location Date Provider Diagnosis Vito Joel MD [address] [place] [id number] 07/06/2024 Vito Joel Blood tests for rout ine general physical examination Z00.00 ; Essential hypertension I10 ; Prediabetes R73.09 and Pure hypercholesterolemia E78.00 Vito Joel MD [address] [place] [address] [id number] 03/23/2024 Vito Joel Acute COVID-19 U07.1 Vito Joel MD [address] [place] [id number] 07/13/2024 Vito Joel Essential hypertensi on I10 ; Annual physical exam Z00.00 ; Pure hypercholesterolemia E78.00 ; 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 ; Diabetic autonomic neuropathy associated with type 2 diabetes mellitus E11.43 ; Colon cancer screening Z12.11 and Depression screening Z13.31 Vito Joel MD [address] [place] [id number] 09/20/2024 Vito Joel MD [address] [place] [id number] 01/11/2024 Vito Joel MD [address] [place] [address] [id number] 03/23/2024 Vito Joel Acute COVID-19 U07.1 Vito Joel MD [address] [place] [id number] 04/24/2024 Vito Joel MD [address] [place] [address] [id number] 06/13/2024 Vito Joel Essential hypertensi on I10 Vito Joel MD [address] [place] [address] [id number] 07/11/2024 Vito Joel MD [address] [place] [id number] 09/07/2024 Vito Joel MD [address] [place] [id number] 10/06/2024 Vito Joel Assessments Encounter Date Diagnosis (ICD [...] Z00.00) labs reviewed and discussed with patient 03/23/2024 Acute COVID-19 (ICD- 10 - U07.1) [...] Test Name Order Date Electrocardiogram (EKG) 11/25/2012 CARDIOVASCULAR STRESS TEST 11/12/2022 Next Appt Details Provider Name:Vito Johnson ier, 01/09/2025 08:00:00 AM, [address], [address], [place], [place], [phone], Provider Name:Vito Johnson ier, 01/16/2025 10:00:00 AM, [address] [place] [address], [address], [place], [place], [phone], Provider Name:Vito Johnson ier, 07/10/2025 08:00:00 AM, [address] [place] [address], Suite [facility], [place], [place], [phone], Provider Name:Vito Johnson ier, 07/17/2025 01:00:00 PM, [address] [place] [address], Suite [facility], [place], [place], [phone], Insurance Providers Payer Name Payer Address Payer Phone Subscriber Number Group Number Insured Name Patient Relationship to Insured Coverage Start Date Coverage End Date [facility] [address] [facility] [id number] [id number] Maria Ines Kam Self - patient is the insured Medical (General) History Medical History History ICD Code hysterectomy (2002) and oopherectomy endometrial cancer - 200211/24/2012 - refuses Colonsco py 2013; REFUSED COLONOSCOPY - DON'T ASK AGAIN 08/17/16 Prediabetes R73.09 Prediabetes Surgical History Surgery Date(Month/Year) left hip replacement 07/2010 right hip replacement 07/1994
--- OUTSIDE RECORDS SUMMARY | 2024-10-12 11:19 | XMS_ITS ---
Author Organization [facility] Address [address] [place] [address] Care Team Providers Care Video Surveillance Technician Name Role Phone Wisam DAWSON, Vito Primary Care Provider Horace Irais Sunshine Unavailable [phone] Gerald Alan Unavailable [phone] REASON FOR VISIT wrong patient Encounters Encounter Location Date Provider Diagnosis [address] [address] 12/21/2023 Gerald Alan Plan Of Treatment Next Appt Details Provider Name:Irais Prieto , 11/06/2024 03:15:00 PM, [address] [place], [address], Progress Notes * KAM Maria Ines ADOB:[birth year] (84 yo F)Acc No.[id number]:12/21/2023 Progress Notes Patient:?Maria Ines KAM Provider:?Gerald Alan DPM :1940???Age:83 Y???Sex:Female D ate:12/21/2023 Address: [address] [phone] Pcp:Vito Joel MD Subjective: * Chief Complaints: [...] Alan DPM Date:?2023 Generated for Chey winslow/Sofie/Ez on:?10/12/2024 11:18 AM EDT
--- OUTSIDE RECORDS SUMMARY | 2024-10-12 11:19 | XMS_ITS ---
Author Organization Vito Joel MD Address 10 [facility] [address] [place] [phone] Care Team Providers Care Kettle Hand Name Role Phone Vito Joel Primary Care Provider Encounters Encounter Location Date Provider Diagnosis Vito Joel MD [address] [place] [address] [address] [place] [phone] 09/07/2024 Vito Joel Plan Of Treatment Next Appt Details Provider Name:Vito romero, 01/09/2025 08:00:00 AM, [address] [place] [address], [address] [place] [address], [phone], Provider Name:Vito romero, 01/16/2025 10:00:00 AM, [address] [place] [address], [address], [phone], Provider Name:Vito romero, 07/10/2025 08:00:00 AM, [address] [place] [address], [address], [phone], Provider Name:Vito romero, 07/17/2025 01:00:00 PM, [address] [place] [address], [address], [phone], Progress Notes * Maria Ines KAM ADOB:[birth year] (84 yo F)Acc No.[id number]:09/07/2024 Patient:?GISELLE Maria Ines Ennis :1940???Age:84 Y???Sex:Female Address:[address] [place] [address] [address] [id number] * true * Date:? Generated for Aleni nayla/Sofie/eTransmitting on:?10/12/2024 11:19 AM EDT
--- OUTSIDE RECORDS SUMMARY | 2024-10-12 11:19 | XMS_ITS ---
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) Plantar fasciitis, bilateral (M72.2) Active confirmed Vital Signs Height 5 ft 5 in in 07/13/2024 Weight 182 lbs 07/13/2024 BMI 30.28 kg/m2 07/13/2024 Blood pressure systolic 120 mm Hg 07/13/19 25 Blood pressure diastolic 70 mm Hg 025 Procedures Procedure Date Ordered Date Performed Result Body Sit e 55999-ZHJNGNK NAIL, 6 OR MORE 07/13/2024 N/A 58817 I&D ABSCESS- SIMPLE,SINGLE 07/13/2024 N/A Encounters Encounter Location Date Provider Diagnosis [facility] [address] [place] [address] 07/13/2024 Irais Black Pain in right foot [...] INSTRUCTIONS.pdf) Pending Test Test Name Order Date 38952-FTRRJLK NAIL, 6 OR MORE 07/13/2024 47042 I&D ABSCESS- SIMPLE,SINGLE 025 Next Appt Details Follow Up: 2 Weeks,prn, Reas on: Provider Name:Irais Prieto , 11/06/2024 03:15:00 PM, [address] [place] [address], [phone], Procedure Notes * Category Sub-Category Detail [...] use of a nail nipper and/or dremel-type tap grinder, to a more viable healthy nail plate [...] to maintain effectiveness in symptomatic relief - 10260 I&D nail abscess Location Medial nail bor [...] dispensed. Recommended Tylenol or Motrin for pain/discomfort (24103) Type Single, Abscess Anesthesia Topically with ethyl chloride per Pt preference Progress Notes * Maria Ines KAM ADOB:[birth year] (84 yo F)Acc No.[id number]:07/13/2024 Progress Note Patient:?Maria Ines KAM Provider:?Irais Prieto DPM :1940???Age:84 Y???Sex:Female D ate:07/13/2024 Address:[address] [place], [place] [phone] Pcp:Vito Joel MD Subjective: * Chief Complaints: [...] History:?historecto my left and right hip replacement [phone] * Hospitalization/Major Diagno stic Procedure:?Denies Past Hospitalization [...] Plan: * Treatment: 2.?Abscess of toe, left?Procedure: 33677 I&D ABSCESS- SIMPLE,SINGLE Notes: Patient Educated with: [...] use of a nail nipper and/or dremel-type tap grinder, to a more viable healthy nail plate [...] to maintain effectiveness in symptomatic relief - 70732.?I&D nail abscess:?Type?Single, Abscess.?Anesthesia?Topically with ethyl chloride per [...] dispensed. Recommended Tylenol or Motrin for pain/discomfort (64311).? * Procedure Codes:?11474 DEBRI DE NAIL, 6 OR MORE, Modifiers: XS 58589 DRAINAGE OF SKIN ABSCESS, Modifiers: TA * [...] Provider:?Irais Prieto DPM Date:?2024 Generated for Chey winslow/Sofie/Dwayneitting on:?10/12/2024 11:19 AM EDT History and Physical Notes * HPI (History [...]
--- OUTSIDE RECORDS SUMMARY | 2024-10-12 11:19 | XMS_ITS ---
Author Organization [facility] [place] Address [address] [place] [address] Care Team Providers Care Manager Immunology Name Role Phone Vito Joel MD Primary Care Provider Irais Mcghee Unavailable [phone] Allergies No Known Allergies REASON FOR VISIT [...] Ordered Date Performed Result Body Sit e 48114-YMEWMSP NAIL, 6 OR MORE 03/13/2024 N/A Encounters Encounter Location Date Provider Diagnosis [facility] [address] [place] [address] 03/13/2024 Irais Prieto Pain in right foot [...] Treatment Pending Test Test Name Order Date 41906-JVYTKME NAIL, 6 OR MORE 03/13/2024 Next Appt Details Follow Up: prn, Reason: Provider Name:Irais Prieto , 11/06/2024 03:15:00 PM, [address] [place], [address], Procedure Notes * Category Sub-Category Detail Notes [...] as necessary. Patient chooses, no pharmaceutical tx (37124) Progress Notes * KAMMaria Ines ADOB:[birth year] (84 yo F)Acc No.[id number]:03/13/2024 Progress Note Patient:?Maria Ines Kam Provider:?Irais EVON Prieto :1940???Age:84 Y???Sex:Female D ate:03/13/2024 Address:[address] [place], [place] [phone] Pcp:Vito Joel MD Subjective: * Chief Complaints: [...] History:?historecto my left and right hip replacement [phone] * Hospitalization/Major Diagno stic Procedure:?Denies Past Hospitalization [...] as necessary. Patient chooses, no pharmaceutical tx (98954).? * Procedure Codes:?21635 DEBRI DE NAIL, 6 OR MORE, Modifiers: [...] Prieto DPM Date:?2023 Generated for Chey winslow/Sofie/Ez on:?10/12/2024 11:18 AM EDT History and Physical Notes * [...] denies, anesthesia, burning, paresthesia, tingling, B/L Orthopedic FOOTWEAR EVALUATION: good condit ion, exhibit proper fit and accommodation for pedal [...]
--- OUTSIDE RECORDS SUMMARY | 2024-10-12 11:19 | XMS_ITS ---
Author Organization Vito Joel MD Address 10 [facility] [address] [place] [phone] Care Team Providers Care Oil Well Logger Name Role Phone Vito Joel Primary Care Provider [phone] REASON FOR VISIT discharge Encounters Encounter Location Date Provider Diagnosis Vito Joel MD [address] [place] [address] [address] [place] [phone] 09/20/2024 Vito Joel Plan Of Treatment Next Appt Details Provider Name:Vito romero, 01/09/2025 08:00:00 AM, [address] [place] [address], [address], [phone], Provider Name:Vito romero, 01/16/2025 10:00:00 AM, [address] [place] [address], [address], [phone], Provider Name:Vito romero, 07/10/2025 08:00:00 AM, [address] [place] [address], [address], [phone], Provider Name:Vito romero, 07/17/2025 01:00:00 PM, [address] [place] [address], [address], [phone], Progress Notes * Maria Ines KAM ADOB:[birth year] (84 yo F)Acc No.[id number]:09/20/2024 Patient:?Maria Ines KAM :1940???Age:84 Y???Sex:Female Address:[address] [place] [address] [place] [address] * * Date:?
== END 2024-10-12 10:42 | disposition home or self-care (01) ==
LOC: HO.HGS 09:53
PROVIDERS: PCP Internal Medicine; Visit Provider Surgery
DX: K56.609 Unspecified intestinal obstruction, unspecified as to partial versus complete obstruction (principal); Z98.890 Other specified postprocedural states
CPT/HCPCS: 99024

== ENCOUNTER → 2024-10-12 09:52 | Outpatient (BNVA) | payer OTHER, SELFPAY | PROVIDERS: PCP Internal Medicine; Visit Provider Surgery ==

== ENCOUNTER 2024-11-06 10:53 | Outpatient (REF) | payer OTHER, SELFPAY ==
--- NOTE | ~2024-11-06 | US_ITS ---
CLINICAL HISTORY: R31.29 - Other microscopic hematuria US Renal Comparison: None Findings: Right kidney normal size and echotexture, 11.4 cm length. Benign 10 mm cyst noted. Left kidney normal size and echotexture, 11.0 cm length. Benign 6 mm cyst noted. No hydronephrosis of either kidney. Normal color Doppler IMPRESSION: 1. Normal kidneys. This document has been electronically signed by: Fito Galindo MD on 11/06/2024 13:09:05
--- OUTSIDE RECORDS SUMMARY | 2024-11-06 12:28 | XMS_ITS ---
Author Organization Vito Joel MD Address [address] [place] [phone] Care Team Providers Care Microbiology Teacher Name Role Phone Vito Joel Primary Care Provider [phone] REASON FOR VISIT RF amlodipine Medications Medication SIG (Take, Route, Frequency, Duration) Notes Start Date End Date Status amLODIPine Besylate 10 MG 1 tablet Orall y Once a day for 30 days 10/19/2024 Active Encounters Encounter Location Date Provider Diagnosis Vito Joel MD 10 [facility] [address] [place] [phone] 10/19/2024 Vito Joel Plan Of Treatment Medication Medication Name Sig Start Date Stop Date Notes amLODIPine Besylate 10 MG 1 tablet Orall y Once a day for 30 days 10/19/2024 Next Appt Details Provider Name:Vito romero, 11/28/2024 11:30:00 AM, [address] [place] [address], [address], [phone], Provider Name:Vito romero, 01/09/2025 08:00:00 AM, [address] [place] [address], [address], [phone], Provider Name:Vito romero, 01/16/2025 10:00:00 AM, [address], [address], [place], [phone], Provider Name:Vito Johnson nick, 07/10/2025 08:00:00 AM, [address], [address], [place], [phone], Provider Name:Vito Johnson nick, 07/17/2025 01:00:00 PM, [address], [address], [place], [phone], Progress Notes * Maria Ines KAM ADOB:[birth year] (84 yo F)Acc No.[id number]:10/19/2024 Patient:?Maria Ines KAM :1940???Age:84 Y???Sex:Female Address:[address] [place] [address] * Refills? Start amLODIPine Besylate Tablet, 10 MG, Orally, 30, 1 tablet, Once a day, 30 days, Refills=5 * true * Date:? Generated for Chey winslow/Sofie/eTransmitting on:?11/06/2024 12:28 PM EDT
--- OUTSIDE RECORDS SUMMARY | 2024-11-06 12:28 | XMS_ITS | Data Portability ---
Author Organization [facility], Main Office Address [address] [facility], [address] [place] [address] Care Team Providers Care Orchestra Teacher Name Role Phone GENOVEVA LIMAS [place] OTHER Assessment Encounter Date Assessment Date Assessment LastModified by Organization Details LastModified Time 10/02/2024 10/02/2024 45 minutes spent on coordination of discharge. [email or web address] Not available 10/02/2024 09:59:54 Plan of Treatment [...] Organization Details Recorded Time Small bowel obstruction 571529511 Active 2024 s/p exp. lap. SWETHA HINOJOSA NP [address] [facility], [address], [place], [address], [facility] 5 10:45:26 Inflammator y bowel disease 55204972 Active 2024 SWETHA HINOJOSA NP [address] [facility], [address], [place], [address], [facility] 5 10:45:49 Imaging of liver abnormal 268835049 Active 2024 SWETHA HINOJOSA NP [address] [facility], [address], [place], [address], [facility] 5 10:46:01 Asthenia 93262212 Active 2024 SWETHA HIONJOSA NP [address] [facility], [address], [place], [address], [facility] 5 10:46:07 Acute nontraumati c kidney injury 7531202871053 03 Active 2024 SWETHA HINOJOSA NP [address], [address], [place], [address], [facility] 5 10:46:20 Hypertensiv e disorder 84340055 Active 2024 SWETHA HINOJOSA NP [address], [address], [place], [address], [facility] 5 10:46:49 Hyperlipide ray 73017855 Active 2024 SWETHA HINOJOSA NP [address], [address], [place], [address], [facility] 5 10:46:57 Peripheral nerve disease 843692644 Active 2024 SWETHA HINOJOSA NP [address], [address], [place], [address], [facility] 5 10:47:10 Seizure disorder 252893823 Active 2024 SWETHA HINOJOSA NP [address], [address], [place], [address], [facility] 5 10:47:21 Chronic low back pain 216439978 Active 2024 SWETHA HINOJOSA NP [address] [facility], [address], [place], [address], [facility] 5 10:47:33 Endometrial carcinoma 156082477 Active 2024 h/o, s/p YVONNE BSO SWETHA HINOJOSA NP [address], [address], [place], [address], [facility] 5 10:48:17 Problem Notes None recorded. Medical [...] mm[Hg] 56 mm[Hg] SWETHA HINOJOSA NP [address] [facility], [address], [place], [address], [facility] 5 13:03:28 Date Recorded Heart rate Respiratory rate Body temperature Oxygen saturation Oxygen saturation in Arterial blood by Pulse oximetry Systolic blood pressure Diastolic blood pressure Provider Name and Address Organization Details Last Updated DateTime 5 80 /min 18 /min 97.4 [degF] 97 % 97 % 152 mm[Hg] 75 mm[Hg] SWETHA HINOJOSA NP [address] [facility], [address], [place], [address], [facility] 5 10:32:33 Date Recorded Heart rate Respiratory rate Oxygen saturation Oxygen saturation in Arterial blood by Pulse oximetry Body temperature Systolic blood pressure Diastolic blood pressure Provider Name and Address Organization Details Last Updated DateTime 5 81 /min 16 /min 96 % 96 % 97.5 [degF] 135 mm[Hg] 62 mm[Hg] SWETHA HINOJOSA NP [address] [facility], [address], [place], [address], [facility] 5 09:42:44 Social History Question Answer Notes LastModified by Organizat ion Details LastModified Time Tobacco Smoking Status Never Smoker SWETHA HINOJOSA NP [address] [facility], [address], [place], [address], [facility] 09/22/2024 09:43:54 What Is Your Level Of Alcohol Consumption? Occasional [email or web address] Information not available 09/22/2024 What Is Your Code Status? DNR/DNI No Artificial Hydration [email or web address] Information not available 09/22/2024 Where Do You Live? Apartment [facility] Information not available 09/22/2024 What Was The Date Of Your Most Recent Tobacco Screening? 09/22/2024 [email or web address] Information not available 09/22/2024 Do You Have An Out Of Hospital DNR? Yes [email or web address] Information not available 09/22/2024 Have You Ever Been Counseled For Unhealthy Alcohol Use? No [email or web address] Information not available 09/22/2024 Do You Use Any Illicit Or Recreational Drugs? No Information not available 09/22/2024 Has Tobacco Cessation Counseling Been Provided? No [email or web address] Information not available 09/22/2024 Do You Or Have You Ever Used Any Other Forms Of Tobacco Or Nicotine? No Information not available 09/22/2024 Sex: Unknown Functional Status None recorded. Mental Status None recorded. Family History Relationship Description Onset Age of this Age Resolved Age Notes LastModified by Organization Details LastModified Time Father No current problems or disability [email or web address] Not available 09/22 09:53:24 Mother No current problems or disability [email or web address] Not available 09/22 09:53:24 Notes:N/C Medical History [...] vaccine, UNSPECIFIED 1 completed Elmer Pedraza null, [facility] 09/22/2024 13:22:27 SARS-COV-2 (COVID-19) vaccine, UNSPECIFIED 1 completed Elmer Pedraza null, [facility] 09/22/2024 13:22:31 SARS-COV-2 (COVID-19) vaccine, UNSPECIFIED 2 completed Elmer Pedraza [facility], [facility] 09/22/2024 13:22:37 SARS-COV-2 (COVID-19) vaccine, UNSPECIFIED 2 completed Elmer Ruiz-Akbar [facility], [facility] 09/22/2024 13:22:42 SARS-COV-2 (COVID-19) vaccine, UNSPECIFIED 3 completed Elmer Pedraza [facility] 09/22/2024 13:22:47 SARS-COV-2 (COVID-19) vaccine, UNSPECIFIED 3 completed Elmer Pedraza [facility] 09/22/2024 13:22:53 zoster, unspecified formulation 8 completed Elmer Joseph-Akbar [facility] 09/22/2024 13:23:07 zoster, unspecified formulation 8 completed [facility] Joseph-Akbar [facility] 09/22/2024 13:23:12 Past Encounters Encounter ID Performer Location Encounter Start Date Encounter Closed Date Diagnosis/Indication Diagnosis SNOMED-CT Code Diagnosis ICD10 Code Diagnosis Note [id number] SWETHA HINOJOSA NP [place] [address] [place] [address] 09/22/2024 08:39:18 09/25/2024 16:16:37 Asthenia [id number] R53.1 Deconditio ross due to acute illness and hospitaliz ationPT OT eval and tx.Goal is to return home, monitor for increased needs/serv ices Small faby l obstruction [id number] K56.609 Presented to [facility] with N/V/D and abd. painFailed conservati ve treatmentU nderwent exp. lap, willam. wellPost op complicati on of prolonged ileus, required PPNNow tolerating regular dietContin ue to monitor po, bowel status closelyTre nd labs, VS, pain, s/s blockage, incisionFo llow up with surgery as sched. Inflammato ry bowel disease 40372850 K52.9 Noted on abd. CTTreated with rocephin and flagylMoni tor GI sx, VS, labsFollow up with GI outpt. Imaging of liver abnormal 214746266 R93.2 Noted on abd. CTMonitor GI statusRefe r to GI as outpt. Acute nont raumatic kidney injury 4659921106 39532 N17.9 Stopped HCTZ/HIPOLITO IResponded well to IVFMonitor labsEncour age po fluidsAvoi d nephrotoxi cs Hypertensive disorder 38 285149 I10 HCTZ/ACEI stopped due to AKINow on norvasc 10 mg qd as well as lasix 20 mg qdMonitor VS, labs, adjust prn Hyperlipidemia 08524133 E78.5 Continue atorvastat in 80 mg qd Peripheral nerve disease 458548537 G64 APAP prn monitor Seizure disorder 9111011 02 G40.909 Continue carbamazep selma 200 mg bidMonitor sz. activity Chronic low back pain 27 2394404 M54.50 APAP prn Insomnia 628706703 G47.0 9 ?Trazodone 50 mg qd prn x 14 d on d/c med listWill continue for now, monitor use and effect. [id number] SWETHA HINOJOSA NP [place] [address] [facility] [address] 09/25/2024 09:05:12 09/27/2024 13:52:55 Asthenia [id number] R53.1 Deconditio ross due to acute illness and hospitaliz ationPT OT eval and tx.Goal is to return home, monitor for increased needs/serv ices Small faby l obstruction 521449888 K56.609 Presented to [facility] with N/V/D and abd. painFailed conservati ve treatmentU nderwent exp. lap, willam. wellPost op complicati on of prolonged ileus, required PPN Now tolerating regular diet, good appetiteMo ving bowels, monitor closelyTre nd labs, VS, pain, s/s blockage, incisionFo llow up with surgery as sched.CBC, BMP in am Inflammato ry bowel disease 31175823 K52.9 Noted on abd. CTTreated with rocephin and flagylMoni tor GI sx, VS, labsFollow up with GI outpt. Imaging of liver abnormal 992053510 R93.2 Noted on abd. CTMonitor GI statusRefe r to GI as outpt. Acute nont raumatic kidney injury 3272258066 93474 N17.9 Stopped HCTZ/HIPOLITO IResponded well to IVFMonitor labs - BMP in amEncourag e po fluidsAvoi d nephrotoxi cs Hypertensive disorder 38 441068 I10 VSSHCTZ/AC EI stopped due to AKINow on norvasc 10 mg qd as well as lasix 20 mg qdMonitor VS, labs, adjust prnBMP in am Hyperlipidemia 30250565 E78.5 Continue atorvastat in 80 mg qd Peripheral nerve disease 826335061 G64 APAP prn monitor Seizure disorder 0839590 02 G40.909 Continue carbamazep selma 200 mg bidMonitor sz. activity Chronic low back pain 27 4840264 M54.50 APAP prn Insomnia 573450986 G47.0 9 ?Trazodone 50 mg qd prn x 14 d on d/c med listWill continue for now, monitor use and effect. [id number] SWETHA HINOJOSA NP [place] [address] [place] [address] 09/27/2024 10:30:52 10/02/2024 16:03:03 Asthenia [id number] R53.1 Deconditio ross due to acute illness and hospitaliz ationPT OT eval and tx., making gains, hopeful to return home for increased needs/serv ices Small faby l obstruction 266268586 K56.609 Presented to [facility] with N/V/D and abd. painFailed conservati ve treatmentU nderwent exp. lap, willam. wellPost op complicati on of prolonged ileus, required PPN Now tolerating regular diet, good appetiteMo ving bowels, monitor closelyTre nd labs, VS, pain, s/s blockage, incisionFo llow up with surgery as sched. 10/12 Inflammato ry bowel disease 45621047 K52.9 Noted on abd. CTTreated with rocephin and flagylMoni tor GI sx, VS, labsFollow up with GI outpt. Imaging of liver abnormal 965902746 R93.2 Noted on abd. CTMonitor GI statusRefe r to GI as outpt. Acute nont raumatic kidney injury 0314300287 13023 N17.9 Stopped HCTZ/HIPOLITO IResponded well to IVFLabs currently stable, but will be increasing lasix due to increased peripheral edemaMaint ain po fluidsAvoi d nephrotoxi csBMP wednesday Hypertensive disorder 38 038081 I10 VSSHCTZ/AC EI stopped due to AKINow on norvasc 10 mg qd as well as lasix 20 mg qd (increasin g to 40 mg qd due to worsening edema)Kiesha tor VS, labs, adjust prnBMP Wednesday Hyperlipidemia 40232185 E78.5 Continue atorvastat in 80 mg qd Peripheral nerve disease 882697965 G64 APAP prn monitor Seizure disorder 9624329 02 G40.909 Continue carbamazep selma 200 mg bidMonitor sz. activity Chronic low back pain 27 6234978 M54.50 APAP prn Insomnia 007776331 G47.0 9 ?Trazodone 50 mg qd prn x 14 d on d/c med Mary continue for now, monitor use and effect. Edema of l ower extremity 508673398 R60.0 Newer, increasing , no pain.Spend ing more time OOBMeds reviewed, is on lasix 20 mg qd as well as norvasc 10 mg qd (both new, was on HCTZ/ACEI prior to hosp. but stopped due to AGUILAR) Plan -Encourage :Elevation Protein intakeActi vityAdd tubigrip toes -> knees qam, off qpmIncreas e lasix to 40 mg qdBMP wednesday (as planning Wed. d/c) [id number] Yusuf Awad MD [place] [facility] [address] [place] [address] 09/30/2024 09:00:49 10/02/2024 16:09:53 Asthenia [id number] R53.1 PT OT Eval and treatmonit or fall risk and need for increased support in community Edema of l ower extremity 801981789 R60.0 now on lasix 20 mg qdmonitor sx control and renal function with recent ARFmay decreased or DC norvasc if not improved Small faby l obstruction 146446178 K56.690 see HPIs/p exp lap complicate d by ileusfollo w surgery recs and update for concernsmo nitor out put and need to adjust diet Inflammato ry bowel disease 95188812 K51.818 carrying dx of IBScovered with rocephin and flagyl in hospitalco ordinate with GImonitor sx Imaging of liver abnormal 025690358 R93.2 concern for cirrhosisf /u with GI in place Acute nont raumatic kidney injury 7183945980 56245 N17.8 HCTZ and HIPOLITO-I d/c'edimpr milana with IVFmonitor renal function now on lasix Hypertensive disorder 38 847760 I10 see abovemonit or bp and need to titrate now on norvasc and lasix Peripheral nerve disease 473939656 G64 carrying dx added to PMHmonitor need for gabapentin Seizure disorder 3137640 02 G40.89 carbamazep ine 200 mg bidmonitor for seizure activity Chronic low back pain 27 3477812 M54.59 controlled with tylenol [id number] SWETHA HINOJOSA NP [place] [address] [facility] [place] [address] 10/02/2024 08:55:20 10/09/2024 09:55:31 Asthenia [id number] R53.1 Deconditio ross due to acute illness and hospitaliz ation.She has been working with PT OT - meeting goals for d/c home today with services.M onitor need for increased services Edema of l ower extremity 258456516 R60.0 Newer issue while here.Spend ing more [...] qam, off qpm Small faby l obstruction 417280493 K56.609 Presented to [facility] with N/V/D and abd. painFailed conservati ve treatmentU nderwent exp. lap, willam. wellPost op complicati on of prolonged ileus, required PPN Now tolerating regular diet, good appetiteMo ving bowels, monitor closelySta ples out, incision healing well.Trend labs, VS, pain, s/s blockage, incisionFo llow up with surgery as sched. 10/12 Inflammato ry bowel disease 57618663 K52.9 Noted on abd. CTTreated with rocephin and flagylNo GI concerns while hereMonito r GI sx, VS, labs as outptFollo w up with GI outpt. Imaging of liver abnormal 837950784 R93.2 Noted on abd. CTMonitor GI statusRefe r to GI as outpt. Acute nont raumatic kidney injury 8799235606 16930 N17.9 Stopped HCTZ/HIPOLITO IResponded well to IVFCurrent ly on Lasix 20 mg qdLabs stableMain tain po fluidsAvoi d nephrotoxi csMonitor labs outpt. Hypertensive disorder 38 847536 I10 VSSHCTZ/AC EI stopped in hosp. due to AKIStarted norvasc 10 mg qd as well as lasix 20 mg qdMonitor VS, labs as outpt., adjust prn Hyperlipidemia 66687439 E78.5 Continue atorvastat in 80 mg qd Peripheral nerve disease 359854294 G64 APAP prn monitor Seizure disorder 8906919 02 G40.909 Continue carbamazep selma 200 mg bidMonitor sz. activity as outpt. Chronic low back pain 27 0750934 M54.50 APAP prn Insomnia 505619075 G47.0 9 ?Trazodone 50 mg qd prn [...] Kelly Member ID Guarantor Name 09/22/2024 1 [facility] ([facility]) [id number] Maria Ines Kam [id number] Maria Ines Kam 09/25/2024 1 [employer] ([employer]) [id number] Maria Ines Kam [id number] Maria Ines Kam 09/27/2024 1 [employer] ([employer]) [id number] Maria Ines Kam [id number] Maria Ines Kam 09/30/2024 1 [employer] ([employer]) [id number] 6 Maria Ines Kam [id number] Maria Ines Kam 10/02/2024 1 [employer] ([employer]) [id number] 6 Maria Ines Kam [id number] Maria Ines Kam Notes Date Note Type Note Provider Name and Address Organization Details Recorded Time 09/22/2024 text/html Maria Ines is seen to day for initial intake. She is an 84 yo lady, admitted to [facility] 09[facility]24 from [facility] for continued care and rehab after a brief hosp. due to SBO, ileus, AGUILAR. She presented to [facility] 09/06 with N/V/D and abdominal pain.In ER, [...] claudication, seizure disorder SWETHA HINOJOSA NP [address] [facility], [address], [place], [address], [facility] 09/22/2024 10:58:43 09/25/2024 text/html Maria Ines is seen to day for an acute visit. She is an 84 yo lady, admitted to [facility] 09/20/24 from [facility] for continued care and rehab after a brief hosp. due to SBO, ileus, AGUILAR. She presented to [facility] 09/06 with N/V/D and abdominal pain.Abd. CT [...] claudication, seizure disorder SWETHA HINOJOSA NP [address] [facility], [address], [place], [address], [facility] 09/25/2024 13:14:46 09/27/2024 text/html Maria Ines is seen to day for an acute visit. She is an 84 yo lady, admitted to [facility] 09/20/24 from [facility] for continued care and rehab after a brief hosp. due to SBO, ileus, AGUILAR. She presented to [facility] 09/06 with N/V/D and abdominal pain.Abd. CT [...] claudication, seizure disorder SWETHA HINOJOSA NP [address] [facility], [address], [place], [address], [facility] 09/27/2024 10:51:49 09/30/2024 text/html Patient is an [...] continued care and therapy Yusuf Awad MD [address] [place] [address], [address], [place], [address], [facility] 09/30/2024 09:21:01 10/02/2024 text/html Maria Ines is seen to day for discharge.She is returning home today with the support of services. She is an 84 yo lady, admitted to [facility] 09/20/24 from [facility] for continued care and rehab after a brief hosp. due to SBO, ileus, AGUILAR. She presented to [facility] 09/06 with N/V/D and abdominal pain.Abd. CT [...] spinal claudication, seizure disorder SWETHA HINOJOSA NP [address] [place] [address], [address], [place], [address], [facility] 10/02/2024 10:00:08 OBGyn Episode No OBEpisode recorded.
--- OUTSIDE RECORDS SUMMARY | 2024-11-06 12:29 | XMS_ITS | Patient Health Record ---
Author Organization [facility] Address [address] [place] [address] Care Team Providers Care Scalp Treatment Operator Name Role Phone Wisam DAWSON, Vito Primary Care Provider Irais Mcghee Unavailable [phone] DayannaGerald romero Unavailable [phone] Allergies No Known Allergies Results Component Value [...] Status Risk Notes Problem Acquired hallux valgus (64943832) Hallux valgus (acquired), left foot (M20.12) Active confirmed Problem Acquired hallux valgus (99751552) Hallux valgus (acquired), right foot (M20.11) Active confirmed Problem Acquired hammer toe of right foot (1079434947930499 ) Other hammer toe(s) (acquired), right foot (M20.41) Active confirmed Problem Acquired hammer toe of left foot (7879188371116525 ) Other hammer toe(s) (acquired), left foot (M20.42) Active confirmed Problem 672391206 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 confirmed Problem 371109644 Pronation deformity of right foot (M21.6X1) Active confirmed Problem 174432929 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) Active confirmed Problem 129117049 Equinus contracture of right ankle (M24.571) Active confirmed Problem Localized, primary osteoarthritis of the ankle and/or foot (203703348) Osteoarthritis of right ankle and foot (M19.071) Active confirmed Problem Localized, primary osteoarthritis of the ankle and/or foot (194728936) Osteoarthritis of left ankle and foot (M19.072) Active confirmed Problem 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) Plantar fasciitis, bilateral (M72.2) Active confirmed Vital Signs Blood pressure diastolic 70 mm Hg 07/13/2024 Height 5 ft 5 in in 07/13/2024 Blood pressure systolic 120 mm Hg 07/13/2024 Weight 182 lbs 07/13/2024 BMI 30.28 kg/m2 07/13/2024 Procedures Procedure Date Ordered Date Performed Result Body Sit e 59032-IWROTJI NAIL, 6 OR MORE 11/08/2023 N/A 88620-HHOCLSX NAIL, 6 OR MORE 03/13/2024 N/A 08741-DYCIVLB NAIL, 6 OR MORE 07/13/2024 N/A 85455 I&D ABSCESS- SIMPLE,SINGLE 07/13/2024 N/A Encounters Encounter Location Date Provider Diagnosis [address] [address] 11/08/2023 Irais Black Pain in right foot [...] Osteoarthritis of right ankle and foot M19.[address] [address] 03/13/2024 Irais Black Pain in right foot [...] M79.674 and Pain in left toe(s) M79.[address] [address] 07/13/2024 Irais Black Pain in right foot [...] Treatment Pending Test Test Name Order Date 09440-HGSBKBG NAIL, 6 OR MORE 11/08/2023 48867-SUHWUBD NAIL, 6 OR MORE 03/13/2024 47033-TBWFOYQ NAIL, 6 OR MORE 07/13/2024 30905 I&D ABSCESS- SIMPLE,SINGLE 025 Next Appt Details Provider Name:Irais Prieto , 11/06/2024 03:15:00 PM, [address] [place] [address], [phone], Insurance Providers Payer Name Payer Address Payer Phone Subscriber Number Group Number Insured Name Patient Relationship to Insured Coverage Start Date Coverage End Date [facility] [address] [place] [address] [id number] Maria Ines Peacock Self - patient is the insured Medical (General) History Medical History History ICD Code Cancer Seizures High blood pressure Surgical History Surgery Date(Month/Year) historectomy left and right hip replacement [phone]
--- OUTSIDE RECORDS SUMMARY | 2024-11-06 12:29 | XMS_ITS ---
Author Organization Vito Joel MD Address [address] [place], [place] [id number] Care Team Providers Care Skip Tracer Name Role Phone Vito Joel Primary Care Provider Allergies No Known Allergies REASON FOR VISIT PH/TCM Medications Medication SIG (Take, Route, Frequency, Duration) Notes Start Date End Date Status carBAMazepine 200 MG TAKE 1 TABLET TWICE A DAY Orally Twice a day Active Nystatin-Triamcinolone 724672-6.1 UNIT/GM 1 application to affected area Externally [...] kg/m2 10/30/2024 weight is down 6 pounds [facility] e 07-13-24 Encounters Encounter Location Date Provider Diagnosis Vito Joel MD [address] [place] [phone] 10/30/2024 Vito Joel Small bowel obstruction K56.609 [...] Up: 4 Weeks, Reason: Provider Name:Vito romero, 11/28/2024 11:30:00 AM, [address] [place] [address], [address], [phone], Provider Name:Vito romero, 01/09/2025 08:00:00 AM, [address] [place] [address], [address], [phone], Provider Name:Vito romero, 01/16/2025 10:00:00 AM, [address] [place] [address], [address], [phone], Provider Name:Vito romero, 07/10/2025 08:00:00 AM, [address] [place] [address], [address], [phone], Provider Name:Vito romero, 07/17/2025 01:00:00 PM, [address] [place] [address], [address], [phone], Progress Notes * Maria Ines KAM ADOB:[birth year] (84 yo F)Acc No.[id number]:10/30/2024 Patient:?Maria Ines KAM Provider:?Vito Joel MD :1940???Age:84 Y???Sex:Female D ate:10/30/2024 [id number] Subjective: * Chief Complaints: * ???PH/TCM * HPI: ???Symptom(s):?patient is a 84 yo female here for tyransitional care management visit. Discharge summary has been reviewed and medications reconcilled/ had been hospitalized for a bowel obstruction. had surgery after one week.? was in hospital 3 weeks and then [facility] for 12 days. feeling well. is slowly getting better. is sleeping a lot. * ROS:?General/Constitutional:?Denies?Chills.?Denies?Fatigue.?Denies?Fever.?Denies?Headache.?ENT:?Patient denies?decreased sense of smell, any loss of taste, sore throat.?Denies?Sore throat.?Respiratory:?Denies?Cough.?Denies?Shortness of breath at rest.?Denies?Shortness of breath with exertion.?Gastrointestinal:?Denies?Diarrhea.?Denies?Nausea.?Musculoskeletal:?Patient denies?muscle aches.?Peripheral Vascular:?Patient denies?red and blue toes.? * Medical History:? * Surgical History:? * Hospitalization/Major Diagno stic Procedure:? * Medications:?TakingFurosemid e 20 MG Tablet 1 tablet Orally Once [...] 1 tablet Orally Once a day Not-Taking/PRNNystatin-Triamcinolone 815895-8.1 UNIT/GM Cream 1 application to affected area Externally Twice a day Not-Taking/PRN Nystatin-Triamcinolone 790519-5.1 UNIT/GM Cream 1 application to affected area Externally Twice a day DiscontinuedLisinopril-hydroCHLOROthiazide 10-12.5 MG Tablet TAKE 1 TABLET ONCE DAILY Medication List reviewed and reconciled with the patientDiscontinued Lisinopril-hydroCHLOROthiazide 10-12.5 MG Tablet TAKE 1 TABLET ONCE DAILY Medication List reviewed and reconciled with the patient * Allergies:?N.K.D.A.yes[Aller gies Verified] Objective: * Vitals:?Ht: 65.25, Wt: 176, BMI:29.06, BP:142/60, Repeat BP:118/72, Wt-k.83. weight is down 6 pounds? since 07-13-24. * Examination: ???General Examination: ?GENERAL APPEARANCE:?pleasant, in no acute distress.?HEAD:?normocephalic.?SKIN:?good turgor.?HEART:?no murmurs, rubs, gallops, regular rate and rhythm.?LUNGS:?no wheezes, rales, rhonchi, good air movement, clear to auscultation bilaterally.? Assessment: * Assessment: 1.?Small bowel obstruction - K56.609 (Primary)???2.?Essential hypertension - I10??? Plan: * Treatment: 2.?Essential hypertension? Continue amLODIPine Besylate Tablet, 10 MG, 1 tablet, Orally, Once a day.?? Notes: is doing well on amlodipine, will continue current regiment?? * Procedure Codes:? * Follow Up:?4 Weeks * * Sign off status: Completed true * Provider:?Vito Joel MD Date:?0 10/30/2024 Generated for Chey winslow/Sofie/Dwayneitting on:?11/06/2024 12:29 PM EDT History and Physical Notes * HPI (History of Present Illness) Category Sub-Category Detail Notes Category Not es Symptom(s) patient is a 84 yo female here for [facility] care management visit. Discharge summary has [...]
--- OUTSIDE RECORDS SUMMARY | 2024-11-06 12:30 | XMS_ITS ---
Author Organization [facility] Address [address] [place] [address] Care Team Providers Care Pulp Tester Name Role Phone Vito Joel MD Primary Care Provider Irais Mcghee Unavailable [phone] Allergies No Known Allergies REASON FOR VISIT [...] Ordered Date Performed Result Body Sit e 13773-PQQDXUY NAIL, 6 OR MORE 03/13/2024 N/A Encounters Encounter Location Date Provider Diagnosis [facility] [address] [place] [address] 03/13/2024 Irais Prieto Pain in right foot [...] Treatment Pending Test Test Name Order Date [id number]-[id number] NAIL, 6 OR MORE 03/13/2024 Next Appt Details Follow Up: prn, Reason: Provider Name:Irais Prieto , 11/06/2024 03:15:00 PM, [address] [place], [address], Procedure Notes * Category Sub-Category Detail Notes [...] as necessary. 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 Patient chooses, no pharmaceutical tx (24184).? * Procedure Codes:?95250 DEBRI DE NAIL, 6 OR MORE, Modifiers: [...] Prieto DPM Date:?2023 Generated for Chey winslow/Sofie/Ez on:?11/06/2024 12:29 PM EDT History and Physical [...]
--- OUTSIDE RECORDS SUMMARY | 2024-11-06 12:30 | XMS_ITS | Patient Health Record ---
Author Organization Vito Joel MD Address [address] [place], [place] [id number] Care Team Providers Care Digital Associate Media Director Name Role Phone Vito Joel Primary Care Provider [phone] Allergies No Known Allergies Results Component Value Reference Range Notes Complete Blood Count Auto Di ff Reviewed date:07/06/2024 01:41:47 PM Interpretation: Performing Lab:[facility], [address] [place] [address] Notes/Report: White Blood Count 5.9 4.8-10.8 X10*3/uL [...] NRBC Abs Auto 0.000 0.0-0.012 X10*3/uL Comprehensive Chana. Panel Fa st Reviewed date:07/06/2024 01:53:50 PM Interpretation: Performing Lab:[address] [address] Notes/Report: Sodium 135 135-145 mmol/L Potassium 4.1 [...] Panel Reviewed date:07/06/2024 01:43:16 PM Interpretation: Performing Lab:[address] [address] Notes/Report: Triglycerides 81 <150 mg/dL Desirable Triglyceride: [...] Random Reviewed date:07/06/2024 01:41:54 PM Interpretation: Performing Lab:[facility], [address] [place] [address] Notes/Report: Creatinine Urine 67.54 Microalbumin Urine 25.0 Microalbum/Creatinine Ratio Ur 37.0 <30 ug/mg cr Albumin/Creatinine Ratio Reference Ranges: Normal: < 30 ug/mg creatinine Microalbuminuria: 30 - 300 ug/mg creatinine Clinical Albuminuria: > 300 ug/mg creatinine Hemoglobin A1c Reviewed date:07/06/2024 01:43:25 PM Interpretation: Performing Lab:[facility], [address] [place] [address] Notes/Report: Hemoglobin A1c % 5.6 <6.0 % [...] average glucose, using the formula of the D5O-Xliafyv Average Glucose study (ADAG), Diabetes Care, Vol.31,#8, Feb. 2007 UA ClnCatch+Micro w/rflx Cul t Reviewed date:07/13/2024 11:30:15 AM Interpretation:JENNIFER 07/13/24 Performing Lab:[facility], [address], [place] [address] Notes/Report: Urine, Clean Catch Color Urine Yellow Appearance Urine Clear PH 7.0 5.0-9.0 Glucose Urine UA Negative Negative mg/dL Urine Blood Small (1+) Negative Specific [place] - Urine 1.010 1.005-1.025 Urine Protein Negative [...] date:06/18/2024 02:18:50 PM Interpretation: Performing Lab: Notes/Report: [facility] [address] [place] [address] XRay Report Signed Patient: Maria Ines Kam MR#: [id number] 983 : 1940 Acct:[id number] Age/Sex: 84 / F ADM Date: 04/20/24 Loc: HO.HOSX Attending Dr: Julissa Lama MD Ordering Physician: Julissa Apple Date of Service: 04/20/24 Procedure(s): XR hip LT min 2V Accession Number(s): [id number] cc: Vito Joel MD; Julissa Apple EXAMINATION: [...] OV> 06/16/24 160 DD/ 3 TD/TT: 04/20/24957 Toy Assembler Wood: [facility] [address] [place] [address] XRay Report Signed Patient: Armin Kam MR#: [id number] 983 : 1940 Acct:[id number] Age/Sex: 84 / F ADM Date: 04/20/24 Loc: HO.HOSX Attending Dr: Julissa Lama MD Ordering Physician: Julissa Apple Date of Service: 04/20/24 Procedure(s): XR hip LT min 2V Accession Number(s): [id number] cc: Vito Joel MD; Julissa Apple EXAMINATION: [...] OV> 06/16/24 160 DD/ 3 TD/TT: 04/20/24957 Toy Assembler Wood: XR lumbar spine 2-3V Reviewed date:06/18/2024 02:19:34 PM Interpretation: Performing Lab: Notes/Report: [facility] [address] [place] [address] XRay Report Signed Patient: Maria Ines Kam MR#: [id number] 983 : 1940 Acct:[id number] Age/Sex: 84 / F ADM Date: 04/20/24 Loc: HO.HOSX Attending Dr: Julissa Lama MD Ordering Physician: Julissa Apple Date of Service: 04/20/24 Procedure(s): XR lumbar spine 2-3V Accession Number(s): [id number] cc: Vito Joel MD; Julissa Apple EXAMINATION: [...] by: Julien Espinoza MD 06/16/2024 04:03 PM [facility] Dictated By: Julien Espinoza MD Signed By: <Electronically signed by Julien Espinoza MD in OV> 06/16/24 1603 DD/ 3 TD/TT: 04/20/24 0958 [employer] Assembler Wood: [facility] [address] [place] [address] [address] [place] [address] XRay Report Signed Patient: Armin Kam MR#: [id number] 983 : 1940 Acct:[id number] Age/Sex: 84 / F ADM Date: 04/20/24 Loc: HO.HOSX Attending Dr: Julissa Lama MD Ordering Physician: Julissa Apple Date of Service: 04/20/24 Procedure(s): XR lum bar spine 2-3V Accession Number(s): [id number] cc: Vito Joel MD; Julissa Apple EXAMINATION: [...] by: Julien Espinoza MD 06/16/2024 04:03 PM [facility] Dictated By: Julien Espinoza MD Signed By: <Electronically signed by Julien Espinoza MD in OV> 06/16/24 1603 DD/ 0954 TD/TT: 04/20/24 0958 Toy Assembler Wood: XR hip RT min 2V Reviewed date:06/18/2024 02:20:56 PM Interpretation: Performing Lab: Notes/Report: [facility] [address] [place] [address] Drive [address] [place] [address] XRay Report Signed Patient: Maria Ines Kam MR#: [id number] 983 : 1940 Acct:[id number] Age/Sex: 84 / F ADM Date: 04/20/24 Loc: HO.HOSX Attending Dr: Julissa Lama MD Ordering Physician: Julissa Apple Date of Service: 04/20/24 Procedure(s): XR hip RT min 2V Accession Number(s): [id number] cc: Vito Joel MD; Julissa Apple EXAMINATION: [...] by: Julien Espinoza MD 06/16/2024 04:05 PM [facility] Dictated By: Julien Espinoza MD Signed By: <Electronically signed by Julien Espinoza MD in OV> 06/16/24 1605 DD/ 0954 TD/TT: 04/20/24 0958 [employer] Assembler Wood: [facility] [address] [place] [address] XRay Report Signed Patient: Armin Kam MR#: [id number] 983 : 1940 Acct:[id number] Age/Sex: 84 / F ADM Date: 04/20/24 Loc: HO.HOSX Attending Dr: Julissa Lama MD Ordering Physician: Julissa Apple Date of Service: 04/20/24 Procedure(s): XR hip RT min 2V Accession Number(s): [id number] cc: Vito Joel MD; Julissa Apple EXAMINATION: [...] by: Julien Espinoza MD 06/16/2024 04:05 PM [facility] Dictated By: Julien Espinoza MD Signed By: <Electronically signed by Julien Espinoza MD in OV> 06/16/24 1605 DD/ TD/TT: 04/20/24 0958 Toy Assembler Wood: XR sacrum coccyx min 2V Reviewed date:06/18/2024 02:20:28 PM Interpretation: Performing Lab: Notes/Report: [facility] [address] [place] [address] Drive [address] [place] [address] XRay Report Signed Patient: Maria Ines Kam MR#: [id number] 983 : 1940 Acct:[id number] Age/Sex: 84 / F ADM Date: 04/20/24 Loc: HO.HOSX Attending Dr: Julissa Lama MD Ordering Physician: Julissa Apple Date of Service: 04/20/24 Procedure(s): XR sacrum coccyx min 2V Accession Number(s): [id number] cc: Vito Joel MD; Julissa Apple EXAMINATION: [...] OV> 06/16/24 1610 DD/ 3 TD/TT: 04/20/24957 [employer]: [facility] [address] [place] [address] XRay Report Signed Patient: Armin Kam MR#: [id number] 983 : 1940 Acct:[id number] Age/Sex: 84 / F ADM Date: 04/20/24 Loc: SAVANNAH Attending Dr: Julissa Lama MD Ordering Physician: Julissa Apple Date of Service: 04/20/24 Procedure(s): XR sac rum coccyx min 2V Accession Number(s): [id number] cc: Vito Joel MD; Julissa Apple EXAMINATION: [...] OV> 06/16/24 1610 DD/ 3 TD/TT: 04/20/24957 Toy Assembler Wood: Urine Culture Reviewed date:07/13/2024 12:31:12 PM Interpretation: Performing Lab:[facility], [address] [place] [address] Notes/Report: O:ESCCOL Escherichia coli Urine Culture Quant Urine Culture > 100,000 cfu/mL Ampicillin 8 Cefazolin 2 Cefepime <=0.12 Ceftriaxone <=0.25 Ciprofloxacin <=0.06 Gentamicin <=1 Nitrofurantoin <=16 Trimethoprim/Sulfamethox azole <=20 UA ClnCatch+Micro w/rflx Cul t Reviewed date:09/07/2024 12:41:56 PM Interpretation: Performing Lab:[facility], [address] [place] [address] Notes/Report: Urine, Clean Catch Color Urine Dark Yellow Appearance Urine Clear PH 6.0 5.0-9.0 Glucose Urine UA Negative Negative mg/dL Urine Blood Negative Negative Specific [place] - Urine >= 1.030 1.005-1.025 Urine Protein [...] 10:29:18 AM Interpretation:reel radiology Performing Lab: Notes/Report: [address] [address] [address] Scan Report Signed with Addenda Patient: Maria Ines Kam MR#: [id number] 983 : 1940 Acct:[id number] Age/Sex: 84 / F ADM Date: 09/06/24 Loc: DONALD KHANIsaccMiguel Attending Dr: Kavon Burnham MD Ordering Physician: Mago Mckeon MD Date of Service: 09/06/24 Procedure(s): CT abdomen pelvis w IV con Accession Number(s): [id number] cc: Vito Joel MD; Mago Mckeon MD Report Number: [id number]: Total DLP = 734.00 mGy-cm ADDENDUM This [...] in OV> 09/06/241832 DD/ 31 TD/TT: 09/06/241831 Toy Assembler Wood: [place] [address] [address] Scan Report Signed with Addenda Patient: Armin Kam MR#: [id number] 983 : 1940 Acct:[id number] Age/Sex: 84 / F ADM Date: 09/06/24 Loc: DONALD [place] [address]: Xavier Burnham MD Ordering Physician: Mago Mckeon MD Date of Service: 09/06/24 Procedure(s): CT abd omen pelvis w IV con Accession Number(s): [id number] cc: Vito Joel MD; Mago Mckeon MD Report Number: [id number]: Total DLP = 734.00 mGy-cm ADDENDUM This [...] in OV> 09/06/241832 DD/ 31 TD/TT: 09/06/241831 Toy Assembler Wood: XR chest 1V Reviewed date:09/07/2024 10:29:44 AM Interpretation: Performing Lab: Notes/Report: [address] [address] XRay Report Signed Patient: Maria Ines Kam MR#: [id number] 983 : 1940 Acct:[id number] Age/Sex: 84 / F ADM Date: 09/06/24 Loc: [place] [address]: Jose Wallace MD Ordering Physician: Mago Mckeon MD Date of Service: 09/06/24 Procedure(s): XR chest 1V Accession Number(s): [id number] cc: Vito Joel MD; Mago Mckeon MD CLINICAL HISTORY: Post [...] in OV> 09/06/242122 DD/ 20 TD/TT: 09/06/242120 [employer]: [place] [address] XRay Report Signed Patient: Armin Kam MR#: [id number] 983 : 1940 Acct:[id number] Age/Sex: 84 / F ADM Date: 09/06/24 Loc: [place] [address]: Lakesha Wallace MD Ordering Physician: Mago Mckeon MD Date of Service: 09/06/24 Procedure(s): XR jose st 1V Accession Number(s): [id number] cc: Vito Joel MD; Mago Mckeon MD [...] in OV> 09/06/242122 DD/ 20 TD/TT: 09/06/242120 Toy Assembler Wood: Complete Blood Count no Diff Reviewed date:09/07/2024 12:33:32 PM Interpretation: Performing Lab:[facility], [address] [place] [address] Notes/Report: White Blood Count 21.7 4.8-10.8 X10*3/uL [...] Panel Reviewed date:09/07/2024 10:30:09 AM Interpretation: Performing Lab:[facility], [address] [place] [address] Notes/Report: Sodium 137 135-145 mmol/L Potassium 3.9 [...] Sensitivity Reviewed date:09/08/2024 12:12:52 PM Interpretation: Performing Lab:[facility], [address] [place] [address] Notes/Report: Troponin-I High Sensitivity 73.8 <3.5-17.0 ng/L Critical value for test(s): TROPONIN Results called to and read back by: MANUEL Person calling: NGUYENQ Date: 09/07/24 Time: 1915 The Cronin high sensitivity Troponin-I results should be used in conjunction with other diagnostic information such as ECG, clinical observations and information, and patient symptoms to aid in the diagnosis of [place]. XR chest 1V Reviewed date:09/08/2024 12:12:42 PM Interpretation: Performing Lab: Notes/Report: [address] [address] XRay Report Signed Patient: Maria Ines Kam MR#: [id number] 983 : 1940 Acct:[id number] Age/Sex: 84 / F ADM Date: 09/06/24 Loc: [place] [address]: Kavon Burnham MD Ordering Physician: Jose Wallace MD Date of Service: 09/07/24 Procedure(s): XR chest 1V Accession Number(s): [id number] cc: Vito Joel MD; Jose Wallace MD [...] Nunez MD Signed By: <Electronically signed by Kamorn Nunez MD in OV> 09/07/242124 DD/ 23 TD/TT: 09/07/242123 [employer]: [place] [address] XRay Report Signed Patient: Armin Kam MR#: [id number] 983 : 1940 Acct:[id number] Age/Sex: 84 / F ADM Date: 09/06/24 Loc: DONALD TINEO Attending Dr: Xavier Burnham MD Ordering Physician: Jose Wlalace MD Date of Service: 09/07/24 Procedure(s): XR jose st 1V Accession Number(s): [id number] cc: Vito Joel MD; Jose Wallace MD [...] in OV> 09/07/242124 DD/ 23 TD/TT: 09/07/242123 Toy Assembler Wood: XR chest 1V Reviewed date:09/08/2024 12:11:49 PM Interpretation: Performing Lab: Notes/Report: [address] [address] XRay Report Signed with Addenda Patient: Maria Ines Kam MR#: [id number] 983 : 1940 Acct:[id number] Age/Sex: 84 / F ADM Date: 09/06/24 Loc: DONALD TINEO Attending Dr: Kavon Burnham MD Ordering Physician: Jose Wallace MD Date of Service: 09/07/24 Procedure(s): XR chest 1V Accession Number(s): [id number] cc: Vito Joel MD; Jose Wallace MD [...] in OV> 09/07/242126 DD/ 25 TD/TT: 09/07/242125 [employer]: [place] [address] XRay Report Signed with Breana Patient: Armin Kam MR#: [id number] 983 : 1940 Acct:[id number] Age/Sex: 84 / F ADM Date: 09/06/24 Loc: DONALD KHANEDY-[address]: Xavier Burnham MD Ordering Physician: Jose Wallace MD Date of Service: 09/07/24 Procedure(s): XR jose st 1V Accession Number(s): [id number] cc: Vito Joel MD; Jose Wallace MD [...] in OV> 09/07/242126 DD/ 25 TD/TT: 09/07/242125 Toy Assembler Wood: XR chest 1V Reviewed date:09/08/2024 12:11:23 PM Interpretation: Performing Lab: Notes/Report: [address] [address] XRay Report Signed Patient: Maria Ines Kam MR#: [id number] 983 : 1940 Acct:[id number] Age/Sex: 84 / F ADM Date: 09/06/24 Loc: DONALD [facility]-[address]: Kavon Burnham MD Ordering Physician: Jose Wallace MD Date of Service: 09/07/24 Procedure(s): XR chest 1V Accession Number(s): [id number] cc: Vito Joel MD; Jose Wallace MD [...] in OV> 09/07/242316 DD/ 15 TD/TT: 09/07/242315 [employer]: [place] [address] XRay Report Signed Patient: Armin Kam MR#: [id number] 983 : 1940 Acct:[id number] Age/Sex: 84 / F ADM Date: 09/06/24 Loc: [place] [address]: Xavier Burnham MD Ordering Physician: Jose Wallace MD Date of Service: 09/07/24 Procedure(s): XR jose st 1V Accession Number(s): [id number] cc: Vito Joel MD; Jose Wallace MD [...] in OV> 09/07/242316 DD/ 15 TD/TT: 09/07/242315 Toy Assembler [employer]: Complete Blood Count no Diff Reviewed date:09/08/2024 12:45:54 PM Interpretation: Performing Lab:[facility], [address] [place] [address] Notes/Report: SPECIMEN QNS White Blood Count 18.4 [...] Panel Reviewed date:09/08/2024 12:10:27 PM Interpretation: Performing Lab:[facility], [address] [place] [address] Notes/Report: Sodium 138 135-145 mmol/L Potassium 4.0 [...] Sensitivity Reviewed date:09/08/2024 12:11:00 PM Interpretation: Performing Lab:[facility], [address] [place] [address] Notes/Report: Troponin-I High Sensitivity 101.3 <3.5-17.0 ng/L Critical value for test(s): TROP Results called to and read back by: MANUEL Person calling: VYASRID Date: [id number] Time:151 The Cronin high sensitivity Troponin-I results should be used in conjunction with other diagnostic information such as ECG, clinical observations and information, and patient symptoms to aid in the diagnosis of TN. FL small bowel follow throug h Reviewed date:09/11/2024 12:48:07 PM Interpretation: Performing Lab: Notes/Report: [address] [address] Fluoroscopy Report Signed Patient: Maria Ines Kam MR#: [id number] 983 : 1940 Acct:[id number] Age/Sex: 84 / F ADM Date: 09/06/24 Loc: HO.S3 352-[address]: Kavon Burnham MD Ordering Physician: Lexi Walsh PA-C Date of Service: 09/08/24 Procedure(s): FL small bowel follow through Accession Number(s): [id number] cc: Vito Joel MD; Lexi Walsh PA-C EXAMINATION: FL SMALL BOWEL SERIES CLINICAL INFORMATION: ?SBO, abd distention, persistent nausea COMPARISON: None available. TECHNIQUE: Following a intervention manager image of the abdomen, thick barium contrast was administered orally, and interval abdominal radiographs were performed to assess for contrast progression through the small bowel. Following contrast transit through the small bowel and into the colon, the patient was placed on the fluoroscopy table, and multiple spot images were obtained. FINDINGS: Technical Account Executive image of the abdomen demonstrates obstructed proximal [...] OV> 09/11/24 1035 DD/ 14 TD/TT: 09/08/242019 [employer]sembler Wood: [place] [address] Fluoroscopy Report Signed Patient: Armin Kam MR#: [id number] 983 : 1940 Acct:[id number] Age/Sex: 84 / F ADM Date: 09/06/24 Loc: .S3 352-[address]: Xavier Burnham MD Ordering Physician: Lexi Walsh PA-C Date of Service: 09/08/24 Procedure(s): FL sma ll bowel follow through Accession Number(s): [id number] cc: Vito Joel MD; Lexi Walsh PA-C EXAMINATION: FL SMALL BOWEL SERIES CLINICAL INFORMATION: ?SBO, abd distention , persistent nausea COMPARISON: None available. TECHNIQUE: Following a intervention manager im age of the abdomen, thick barium contrast was administered orally, and interval abdominal radiographs were performed to assess for contra st progression through the small bowel. Following contrast transit thr ough the small bowel and into the colon, the patient was placed o n the fluoroscopy table, and multiple spot images were obtained. FINDINGS: Technical Account Executive image of the abdomen demonstrates obstructed proximal [...] OV> 09/11/24 1035 DD/ 14 TD/TT: 09/08/242019 Toy Assembler Wood: RUIZ XR KUB Reviewed date:09/08/2024 12:10:15 PM Interpretation: Performing Lab: Notes/Report: [address] [address] XRay Report Signed Patient: Maria Ines Kam MR#: [id number] 983 : 1940 Acct:[id number] Age/Sex: 84 / F ADM Date: 09/06/24 Loc: .S3 352-[address]: Kavon Burnham MD Ordering Physician: Kavon Burnham MD Date of Service: 09/08/24 Procedure(s): XR KUB Accession Number(s): [id number] cc: Vito Joel MD; Kavon Burnham MD [...] 09/08/24 0934 DD/ 0850 TD/TT: 09/08/24 0901 [employer]sembler [employer]: [place] [address] XRay Report Signed Patient: Armin Kam MR#: [id number] 983 : 1940 Acct:[id number] Age/Sex: 84 / F ADM Date: 09/06/24 Loc: HO.S3 352-[address]: Xavier Burnham MD Ordering Physician: aKvon Burnham MD Date of Service: 09/08/24 Procedure(s): XR KUB Accession Number(s): [id number] cc: Vito Joel MD; Kavon Burnham MD [...] 09/08/24 0934 DD/ 0850 TD/TT: 09/08/24 0901 Toy Assembler Wood: [facility] Troponin-I High Sensitivity Reviewed date:09/08/2024 12:09:04 PM Interpretation: Performing Lab:[facility], [address] [place] [address] Notes/Report: Unable to obtain 2x 1037 09/08/24 Dodestinyinvladimir Troponin-I High Sensitivity 117.1 <3.5-17.0 ng/L Critical troponin sent by a secure message and confirmed [facility] 09/08/24 1202 Tech: caroline The Cronin high sensitivity Troponin-I results should be used in conjunction with other diagnostic information such as ECG, clinical observations and information, and patient symptoms to aid in the diagnosis of [place]. Complete Blood Count no Diff Reviewed date:09/10/2024 02:50:48 PM Interpretation: Performing Lab:[facility], [address] [place] [address] Notes/Report: Unable to obtain x2 attempts Yarslen [...] Panel Reviewed date:09/10/2024 02:51:37 PM Interpretation: Performing Lab:[address] [address] Notes/Report: Unable to obtain x2 attempts Yarslen [...] Diff Reviewed date:09/10/2024 02:53:03 PM Interpretation: Performing Lab:[address] [address] Notes/Report: White Blood Count 14.0 4.8-10.8 X10*3/uL [...] Panel Reviewed date:09/10/2024 02:47:59 PM Interpretation: Performing Lab:[address] [address] Notes/Report: Sodium 139 135-145 mmol/L Potassium 3.2 [...] Pathology Reviewed date:09/12/2024 01:54:32 PM Interpretation: Performing Lab:[facility], [address] [place] [address] Notes/Report: ---- Name: Maria Ines Kam Age/Sex: 84/F : 1940 Unit#: [id number] Attend Dr: Kavon Burnham MD Re09/06/24 Status : ADM IN Location: [facility] 352-1 Disch: ---- SPEC : [id number] RECD : 09/11/24 STATUS: MARIALUISA COTTRELL NUM: [id number] BRET: 09/10/[address]: Isabela Lopez MD ENTERED: 09/11/24 SP TYPE: Surgical OTHR DR: Vito Joel MD [facility],Kavon DAWSON ORDERED: Gross Micro L5 Diagnosis Small [...] therefore it is difficult to orie nt. 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 CEDS Copies To: Vito Joel MD [facility] [address] [address] Kavon Burnham MD [address] [place] [address] [id number] Isabela Lopez MD [facility] [address] [place] [phone] [email or web address] ([email or web address]) ---- Signed (signature on file) Talia Ricardo MD 09/12/24 1304 ---- END OF REPORT XR KUB Reviewed date:09/10/2024 02:50:05 PM Interpretation: Performing Lab: Notes/Report: [address] [address] XRay Report Signed Patient: Maria Ines Kam MR#: [id number] 983 : 1940 Acct:[id number] Age/Sex: 84 / F ADM Date: 09/06/24 Loc: .S3 352-[address]: Pj Choudhary MD Ordering Physician: Jeff Mcnair MD Date of Service: 09/09/24 Procedure(s): XR KUB Accession Number(s): [id number] cc: Vito Joel MD; Jeff Mcnair MD [...] OV> 09/10/24 110 DD/ 06 TD/TT: 09/10/241106 Toy Assembler Wood: [address] [address] XRay Report Signed Patient: Armin Kma MR#: [id number] 983 : 1940 Acct:[id number] Age/Sex: 84 / F ADM Date: 09/06/24 Loc: HO.S3 352-[address]: Pj Choudhary MD Ordering Physician: Jeff Mcnair MD Date of Service: 09/09/24 Procedure(s): SKYLER ESPINALB Accession Number(s): [id number] cc: Vito Joel MD; Jeff Mcnair MD [...] OV> 09/10/24 110 DD/ 06 TD/TT: 09/10/241106 Toy Assembler Wood: SKYLER TA Reviewed date:09/10/2024 02:50:29 PM Interpretation: Performing Lab: Notes/Report: [address] [address] XRay Report Signed Patient: Maria Ines Kam MR#: [id number] 983 : 1940 Acct:[id number] Age/Sex: 84 / F ADM Date: 09/06/24 Loc: HO.S3 352-[address]: Pj Choudhary MD Ordering Physician: Isabela Lopez MD Date of Service: 09/10/24 Procedure(s): XR KUB Accession Number(s): [id number] cc: Vito Joel MD; Isabela Lopez MD [...] 09/10/24 1249 DD/ 1248 TD/TT: 09/10/24 1248 Toy Assembler Wood: [place] [address] XRay Report Signed Patient: Armin Kam MR#: [id number] 983 : 1940 Acct:[id number] Age/Sex: 84 / F ADM Date: 09/06/24 Loc: HO.S3 352-[address]: Pj Choudhary MD Ordering Physician: Isabela Lopez MD Date of Service: 09/10/24 Procedure(s): XR KUB Accession Number(s): [id number] cc: Vito Joel MD; Isabela Lopez MD [...] 09/10/24 1249 DD/ 1248 TD/TT: 09/10/24 1248 Toy Assembler Wood: Complete Blood Count no Diff Reviewed date:09/11/2024 12:49:09 PM Interpretation: Performing Lab:[facility], [address] [place] [address] Notes/Report: White Blood Count 14.1 4.8-10.8 X10*3/uL [...] Panel Reviewed date:09/11/2024 12:46:20 PM Interpretation: Performing Lab:[facility], [address] [place] [address] Notes/Report: Sodium 143 135-145 mmol/L Potassium 3.0 [...] Electrolytes Reviewed date:09/12/2024 12:25:43 PM Interpretation: Performing Lab:[address] [address] Notes/Report: Sodium 143 135-145 mmol/L Potassium 3.4 3.3-5.1 mmol/L Chloride 105 96-108 mmol/L Carbon Dioxide 30 22-29 mmol/L Anion Gap 11 12-20 Phosphorus Reviewed date:09/11/2024 12:46:12 PM Interpretation: Performing Lab:[address] [address] Notes/Report: Phosphorus 2.8 2.7-4.5 mg/dL Magnesium Reviewed date:09/11/2024 12:46:04 PM Interpretation: Performing Lab:[address] [address] Notes/Report: Magnesium 2.4 1.6-2.6 mg/dL Albumin Level Reviewed date:09/11/2024 12:45:57 PM Interpretation: Performing Lab:[address] [address] Notes/Report: Albumin Level 2.8 3.5-5.0 g/dL Triglycerides Reviewed date:09/11/2024 12:45:50 PM Interpretation: Performing Lab:[address] [address] Notes/Report: Triglycerides 117 <150 mg/dL Desirable Triglyceride: less than 150 mg/dL Borderline High Triglyceride 150-199 mg/dL High Triglyceride: 200-499 mg/dL Very High Triglyceride: greater than or equal to 5OO mg/dL Hold Green Gel Reviewed date:09/11/2024 06:02:58 PM Interpretation: Performing Lab:[facility], [address] [place] [phone] Notes/Report: Hold Green Gel See Note Specimen held untested for 24 hours; Call to request Chemistry testing. Complete Blood Count no Diff Reviewed date:09/12/2024 01:55:00 PM Interpretation: Performing Lab:[facility], [address] [place] [address] Notes/Report: White Blood Count 10.9 4.8-10.8 X10*3/uL [...] Panel Reviewed date:09/12/2024 12:38:34 PM Interpretation: Performing Lab:[facility], [address] [place] [phone] Notes/Report: Sodium 142 135-145 mmol/L Potassium 3.6 [...] Phosphorus Reviewed date:09/12/2024 12:20:25 PM Interpretation: Performing Lab:[facility], [address] [place] [phone] Notes/Report: Phosphorus 1.6 2.7-4.5 mg/dL Magnesium Reviewed date:09/12/2024 12:19:46 PM Interpretation: Performing Lab:[facility], [address] [place] [address] Notes/Report: Magnesium 2.4 1.6-2.6 mg/dL Albumin Level Reviewed date:09/12/2024 12:15:39 PM Interpretation: Performing Lab:[facility], [address] [place] [address] Notes/Report: Albumin Level 2.6 3.5-5.0 g/dL Glucose, Whole Blood Reviewed date:09/12/2024 12:15:20 PM Interpretation: Performing Lab:[facility], [address] [place] [phone] Notes/Report: Glucose, Whole Blood 142 60-115 mg/dL METER # : [id number] Glucose, Whole Blood Reviewed date:09/13/2024 07:01:40 PM Interpretation: Performing Lab:[address] [address] Notes/Report: Glucose, Whole Blood 120 60-115 mg/dL METER # : [id number] Glucose, Whole Blood Reviewed date:09/13/2024 07:01:40 PM Interpretation: Performing Lab:[facility], [address] [place] [phone] Notes/Report: Glucose, Whole Blood 123 60-115 mg/dL METER # : [id number] Complete Blood Count no Diff Reviewed date:09/13/2024 07:01:40 PM Interpretation: Performing Lab:[facility], [address] [place] [phone] Notes/Report: White Blood Count 9.9 4.8-10.8 X10*3/uL [...] Panel Reviewed date:09/13/2024 07:01:40 PM Interpretation: Performing Lab:[facility], [address] [place] [address] Notes/Report: Sodium 140 135-145 mmol/L Potassium 3.8 [...] Phosphorus Reviewed date:09/13/2024 07:01:40 PM Interpretation: Performing Lab:[facility], [address] [place] [address] Notes/Report: Phosphorus 3.3 2.7-4.5 mg/dL Magnesium Reviewed date:09/13/2024 07:01:40 PM Interpretation: Performing Lab:[facility], [address] [place] [phone] Notes/Report: Magnesium 2.3 1.6-2.6 mg/dL Albumin Level Reviewed date:09/13/2024 07:01:40 PM Interpretation: Performing Lab:[facility], [address] [place] [phone] Notes/Report: Albumin Level 2.5 3.5-5.0 g/dL Glucose, Whole Blood Reviewed date:09/13/2024 07:01:40 PM Interpretation: Performing Lab:[facility], [address] [place] [phone] Notes/Report: Glucose, Whole Blood 147 60-115 mg/dL METER # : [id number] XR chest 1V Reviewed date:09/14/2024 12:39:53 PM Interpretation: Performing Lab: Notes/Report: [address] [address] XRay Report Signed Patient: Maria Ines Kam MR#: [id number] 983 : 1940 Acct:[id number] Age/Sex: 84 / F ADM Date: 09/06/24 Loc: HO.S3 352-[address]: Kavon Burnham MD Ordering Physician: Jesus Galaviz MD Date of Service: 09/13/24 Procedure(s): XR chest 1V Accession Number(s): [id number] cc: Vito Joel MD; Jesus Galaviz MD [...] in OV> 09/13/242327 DD/ 26 TD/TT: 09/13/242326 [employer]: [address] [place] [address] XRay Report Signed Patient: Armin Kam MR#: [id number] : 1940 Acct:[id number] Age/Sex: 84 / F ADM Date: 09/06/24 Loc: [facility] 352-[address]: Xavier Burnham MD Ordering Physician: Jesus Galaviz MD Date of Service: 09/13/24 Procedure(s): XR jose st 1V Accession Number(s): [id number] cc: Vito Joel MD; Jesus Galaviz MD [...] in OV> 09/13/242327 DD/ 26 TD/TT: 09/13/242326 [employer]: Glucose, Whole Blood Reviewed date:09/13/2024 07:01:40 PM Interpretation: Performing Lab:[facility], [address] [place] [address] Notes/Report: Glucose, Whole Blood 142 60-115 mg/dL METER # : [id number] Glucose, Whole Blood Reviewed date:09/13/2024 07:01:40 PM Interpretation: Performing Lab:[facility], [address] [place] [phone] Notes/Report: Glucose, Whole Blood 111 60-115 mg/dL METER # : [id number] Glucose, Whole Blood Reviewed date:09/14/2024 12:39:53 PM Interpretation: Performing Lab:[facility], [address] [place] [phone] Notes/Report: Glucose, Whole Blood 123 60-115 mg/dL METER # : [id number] XR chest 1V Reviewed date:09/14/2024 12:39:53 PM Interpretation: Performing Lab: Notes/Report: [address] [address] XRay Report Signed Patient: Maria Ines Kam MR#: [id number] 983 : 1940 Acct:[id number] Age/Sex: 84 / F ADM Date: 09/06/24 Loc: HO.S3 352-[address]: Kavon Burnham MD Ordering Physician: Jesus Galaviz MD Date of Service: 09/13/24 Procedure(s): XR chest 1V Accession Number(s): [id number] cc: Vito Joel MD; Jesus Galaviz MD [...] OV> 09/13/24 2343 DD/DT: 032340 TD/TT: 09/13/242340 [employer]: [facility] [address] [place] [address] XRay Report Signed Patient: Armin Kam MR#: [id number] : 1940 Acct:[id number] Age/Sex: 84 / F ADM Date: 09/06/24 Loc: HO.S3 352-[address]: Xavier Burnham MD Ordering Physician: Jesus Galaviz MD Date of Service: 09/13/24 Procedure(s): XR jose st 1V Accession Number(s): [id number] cc: Vito Joel MD; Jesus Galaviz MD [...] in OV> 09/13/242342 DD/ 40 TD/TT: 09/13/242340 [employer]: Complete Blood Count no Diff Reviewed date:09/14/2024 12:39:53 PM Interpretation: Performing Lab:[facility], [address] [place] [address] Notes/Report: White Blood Count 11.0 4.8-10.8 X10*3/uL [...] Panel Reviewed date:09/14/2024 12:39:53 PM Interpretation: Performing Lab:[address] [address] Notes/Report: Sodium 140 135-145 mmol/L Potassium 4.3 [...] Phosphorus Reviewed date:09/14/2024 12:39:53 PM Interpretation: Performing Lab:[address] [address] Notes/Report: Phosphorus 4.0 2.7-4.5 mg/dL Magnesium Reviewed date:09/14/2024 12:39:53 PM Interpretation: Performing Lab:[address] [address] Notes/Report: Magnesium 2.3 1.6-2.6 mg/dL Albumin Level Reviewed date:09/14/2024 12:39:53 PM Interpretation: Performing Lab:[facility], [address] [place] [address] Notes/Report: Albumin Level 2.7 3.5-5.0 g/dL Glucose, Whole Blood Reviewed date:09/14/2024 12:39:53 PM Interpretation: Performing Lab:[facility], [address] [place] [address] Notes/Report: Glucose, Whole Blood 133 60-115 mg/dL METER # : [id number] Glucose, Whole Blood Reviewed date:09/14/2024 12:36:25 PM Interpretation: Performing Lab:[facility], [address] [place] [address] Notes/Report: Glucose, Whole Blood 117 60-115 mg/dL METER # : [id number] Glucose, Whole Blood Reviewed date:09/15/2024 09:58:24 AM Interpretation: Performing Lab:[facility], [address] [place] [address] Notes/Report: Glucose, Whole Blood 113 60-115 mg/dL METER # : [id number] Glucose, Whole Blood Reviewed date:09/15/2024 12:23:20 PM Interpretation: Performing Lab:[facility], [address] [place] [phone] Notes/Report: Glucose, Whole Blood 126 60-115 mg/dL METER # : [id number] Comprehensive Met. Panel Reviewed date:09/15/2024 12:23:19 PM Interpretation: Performing Lab:[facility], [address] [place] [phone] Notes/Report: Sodium 139 135-145 mmol/L Potassium 4.5 [...] Panel Reviewed date:09/15/2024 12:23:19 PM Interpretation: Performing Lab:[facility], [address] [place] [address] Notes/Report: Sodium 140 135-145 mmol/L Potassium 4.7 [...] Phosphorus Reviewed date:09/15/2024 12:23:19 PM Interpretation: Performing Lab:[facility], [address] [place] [address] Notes/Report: Phosphorus 4.0 2.7-4.5 mg/dL Magnesium Reviewed date:09/15/2024 12:23:19 PM Interpretation: Performing Lab:[facility], [address] [place] [address] Notes/Report: Magnesium 2.3 1.6-2.6 mg/dL Albumin Level Reviewed date:09/15/2024 12:23:20 PM Interpretation: Performing Lab:[facility], [address] [place] [address] Notes/Report: Albumin Level 2.8 3.5-5.0 g/dL Glucose, Whole Blood Reviewed date:09/15/2024 12:23:20 PM Interpretation: Performing Lab:[facility], [address] [place] [phone] Notes/Report: Glucose, Whole Blood 136 60-115 mg/dL METER # : [id number] Glucose, Whole Blood Reviewed date:09/15/2024 12:44:30 PM Interpretation: Performing Lab:[facility], [address] [place] [phone] Notes/Report: Glucose, Whole Blood 119 60-115 mg/dL METER # : [id number] Glucose, Whole Blood Reviewed date:09/17/2024 05:17:50 PM Interpretation: Performing Lab:[facility], [address] [place] [address] Notes/Report: Glucose, Whole Blood 93 60-115 mg/dL METER # : [id number] Glucose, Whole Blood Reviewed date:09/17/2024 05:17:50 PM Interpretation: Performing Lab:[facility], [address] [place] [address] Notes/Report: Glucose, Whole Blood 131 60-115 mg/dL METER # : [id number] Basic Metabolic Panel Reviewed date:09/17/2024 05:17:50 PM Interpretation: Performing Lab:[facility], [address] [place] [phone] Notes/Report: Sodium 140 135-145 mmol/L Potassium 4.2 [...] Phosphorus Reviewed date:09/17/2024 05:17:50 PM Interpretation: Performing Lab:[address] [address] Notes/Report: Phosphorus 3.6 2.7-4.5 mg/dL Magnesium Reviewed date:09/17/2024 05:17:50 PM Interpretation: Performing Lab:[address] [address] Notes/Report: Magnesium 2.3 1.6-2.6 mg/dL Albumin Level Reviewed date:09/17/2024 05:17:50 PM Interpretation: Performing Lab:[address] [address] Notes/Report: Albumin Level 2.9 3.5-5.0 g/dL Glucose, Whole Blood Reviewed date:09/17/2024 05:17:50 PM Interpretation: Performing Lab:[address] [address] Notes/Report: Glucose, Whole Blood 126 60-115 mg/dL METER # : [id number] Glucose, Whole Blood Reviewed date:09/17/2024 05:17:50 PM Interpretation: Performing Lab:[address] [address] Notes/Report: Glucose, Whole Blood 133 60-115 mg/dL METER # : [id number] Glucose, Whole Blood Reviewed date:09/17/2024 05:17:50 PM Interpretation: Performing Lab:[address] [address] Notes/Report: Glucose, Whole Blood 137 60-115 mg/dL METER # : [id number] Glucose, Whole Blood Reviewed date:09/17/2024 05:17:50 PM Interpretation: Performing Lab:[facility], [address] [place] [address] Notes/Report: Glucose, Whole Blood 131 60-115 mg/dL METER # : [id number] Basic Metabolic Panel Reviewed date:09/17/2024 05:17:50 PM Interpretation: Performing Lab:[facility], [address] [place] [address] Notes/Report: Sodium 140 135-145 mmol/L Potassium 4.4 [...] Phosphorus Reviewed date:09/17/2024 05:17:50 PM Interpretation: Performing Lab:[facility], [address] [place] [address] Notes/Report: Phosphorus 3.6 2.7-4.5 mg/dL Magnesium Reviewed date:09/17/2024 05:17:50 PM Interpretation: Performing Lab:[facility], [address] [place] [address] Notes/Report: Magnesium 2.1 1.6-2.6 mg/dL Albumin Level Reviewed date:09/17/2024 05:17:50 PM Interpretation: Performing Lab:[facility], [address] [place] [phone] Notes/Report: Albumin Level 2.9 3.5-5.0 g/dL Glucose, Whole Blood Reviewed date:09/17/2024 05:17:50 PM Interpretation: Performing Lab:[facility], [address] [place] [phone] Notes/Report: Glucose, Whole Blood 126 60-115 mg/dL METER # : [id number] Glucose, Whole Blood Reviewed date:09/17/2024 05:17:50 PM Interpretation: Performing Lab:[facility], [address] [place] [phone] Notes/Report: Glucose, Whole Blood 100 60-115 mg/dL METER # : [id number] Glucose, Whole Blood Reviewed date:09/18/2024 12:00:44 PM Interpretation: Performing Lab:[facility], [address] [place] [phone] Notes/Report: Glucose, Whole Blood 111 60-115 mg/dL METER # : [id number] Glucose, Whole Blood Reviewed date:09/18/2024 12:00:44 PM Interpretation: Performing Lab:[facility], [address] [place] [phone] Notes/Report: Glucose, Whole Blood 111 60-115 mg/dL METER # : [id number] Hold Lav - Possible Hematolo gy Reviewed date:09/18/2024 12:00:44 PM Interpretation: Performing Lab:[facility], [address] [place] [address] Notes/Report: Hold Lav - Possible Hematology SEE NOTE Specimen will be held untested for 8 hours. Call Hematology if testing is desired. Basic Metabolic Panel Reviewed date:09/18/2024 12:00:44 PM Interpretation: Performing Lab:[facility], [address] [place] [phone] Notes/Report: Sodium 136 135-145 mmol/L Potassium 4.4 [...] Phosphorus Reviewed date:09/18/2024 12:00:44 PM Interpretation: Performing Lab:[address] [address] Notes/Report: Phosphorus 3.3 2.7-4.5 mg/dL Magnesium Reviewed date:09/18/2024 12:00:44 PM Interpretation: Performing Lab:[address] [address] Notes/Report: Magnesium 2.1 1.6-2.6 mg/dL Albumin Level Reviewed date:09/18/2024 12:00:05 PM Interpretation: Performing Lab:[address] [address] Notes/Report: Albumin Level 2.7 3.5-5.0 g/dL Triglycerides Reviewed date:09/18/2024 12:00:44 PM Interpretation: Performing Lab:[address] [address] Notes/Report: Triglycerides 241 <150 mg/dL Desirable Triglyceride: less than 150 mg/dL Borderline High Triglyceride 150-199 mg/dL High Triglyceride: 200-499 mg/dL Very High Triglyceride: greater than or equal to 5OO mg/dL Glucose, Whole Blood Reviewed date:09/18/2024 12:00:44 PM Interpretation: Performing Lab:[address] [address] Notes/Report: Glucose, Whole Blood 137 60-115 mg/dL METER # : [id number] Glucose, Whole Blood Reviewed date:09/18/2024 12:08:03 PM Interpretation: Performing Lab:[facility], [address] [place] [phone] Notes/Report: Glucose, Whole Blood 139 60-115 mg/dL METER # : [id number] Glucose, Whole Blood Reviewed date:09/19/2024 10:03:03 AM Interpretation: Performing Lab:[facility], [address] [place] [phone] Notes/Report: Glucose, Whole Blood 120 60-115 mg/dL METER # : [id number] Glucose, Whole Blood Reviewed date:09/19/2024 10:03:03 AM Interpretation: Performing Lab:[facility], [address] [place] [address] Notes/Report: Glucose, Whole Blood 110 60-115 mg/dL METER # : [id number] Hold Lav - Possible Hematolo gy Reviewed date:09/19/2024 10:03:03 AM Interpretation: Performing Lab:[facility], [address] [place] [address] Notes/Report: Hold Lav - Possible Hematology SEE NOTE Specimen will be held untested for 8 hours. Call Hematology if testing is desired. Basic Metabolic Panel Reviewed date:09/19/2024 10:03:03 AM Interpretation: Performing Lab:[facility], [address] [place] [phone] Notes/Report: Sodium 133 135-145 mmol/L Potassium 4.1 [...] Phosphorus Reviewed date:09/19/2024 10:03:03 AM Interpretation: Performing Lab:[facility], [address] [place] [phone] Notes/Report: Phosphorus 3.1 2.7-4.5 mg/dL Magnesium Reviewed date:09/19/2024 10:03:03 AM Interpretation: Performing Lab:[facility], [address] [place] [address] Notes/Report: Magnesium 1.9 1.6-2.6 mg/dL Albumin Level Reviewed date:09/19/2024 10:03:03 AM Interpretation: Performing Lab:[facility], [address] [place] [address] Notes/Report: Albumin Level 2.6 3.5-5.0 g/dL Glucose, Whole Blood Reviewed date:09/19/2024 10:03:03 AM Interpretation: Performing Lab:[facility], [address] [place] [address] Notes/Report: Glucose, Whole Blood 126 60-115 mg/dL METER # : [id number] Glucose, Whole Blood Reviewed date:09/19/2024 12:02:47 PM Interpretation: Performing Lab:[facility], [address] [place] [address] Notes/Report: Glucose, Whole Blood 138 60-115 mg/dL METER # : [id number] Glucose, Whole Blood Reviewed date:09/20/2024 03:15:40 PM Interpretation: Performing Lab:[facility], [address] [place] [address] Notes/Report: Glucose, Whole Blood 107 60-115 mg/dL METER # : [id number] Glucose, Whole Blood Reviewed date:09/20/2024 03:16:10 PM Interpretation: Performing Lab:[facility], [address] [place] [address] Notes/Report: Glucose, Whole Blood 130 60-115 mg/dL METER # : [id number] Basic Metabolic Panel Reviewed date:09/20/2024 03:16:10 PM Interpretation: Performing Lab:[facility], [address] [place] [phone] Notes/Report: Sodium 134 135-145 mmol/L Potassium 3.8 [...] Phosphorus Reviewed date:09/20/2024 03:13:29 PM Interpretation: Performing Lab:[facility], [address] [place] [address] Notes/Report: Phosphorus 3.1 2.7-4.5 mg/dL Magnesium Reviewed date:09/20/2024 03:13:21 PM Interpretation: Performing Lab:[facility], [address] [place] [address] Notes/Report: Magnesium 1.9 1.6-2.6 mg/dL Albumin Level Reviewed date:09/20/2024 03:13:14 PM Interpretation: Performing Lab:[facility], [address] [place] [address] Notes/Report: Albumin Level 2.8 3.5-5.0 g/dL Glucose, Whole Blood Reviewed date:09/20/2024 03:16:10 PM Interpretation: Performing Lab:[facility], [address] [place] [address] Notes/Report: Glucose, Whole Blood 93 60-115 mg/dL METER # : [id number] CDiff Gene PCR Reviewed date:09/20/2024 03:13:07 PM Interpretation: Performing Lab:[facility], [address] [place] [address] Notes/Report: CDiff Gene PCR NEGATIVE Negative If C. difficile strongly suspected despite one negative test, a second test may be sent vs. empiric treatment for C. difficile infection. Glucose, Whole Blood Reviewed date:09/20/2024 03:16:10 PM Interpretation: Performing Lab:[facility], [address] [place] [address] Notes/Report: Glucose, Whole Blood 96 60-115 mg/dL METER # : [id number] Glucose, Whole Blood Reviewed date:09/20/2024 03:16:09 PM Interpretation: Performing Lab:[facility], [address] [place] [address] Notes/Report: Glucose, Whole Blood 105 60-115 mg/dL METER # : [id number] Reason For Referral No Information Medications Medication SIG (Take, Route, Frequency, Duration) Notes Start Date End Date Status Aspir-81 81 MG 1 tablet Orally Once a day for 30 day(s) Active Molnupiravir 200 MG 4 capsules Orally ev dara 12 hrs for 5 day(s) 03/23/2024 Active Atorvastatin Calcium 80 MG TAKE 1 TABLET DAILY Orally Once a day Active carBAMazepine 200 MG TAKE 1 TABLET TWICE A DAY Orally Twice a day Active Nystatin-Triamcinolone 459938-5.1 UNIT/GM 1 application to affected area Externally Twice a day for 30 days 09/21/2017 Not-Taking amLODIPine Besylate 10 MG 1 tablet Orall y Once a day 10/19/2024 Active Furosemide 20 MG 1 tablet Orally Once a day Active Immunizations Vaccine Route Administration Date Status [...] was given the vaccine at [facility] [place]. 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 (524355416) Diabetic autonomic neuropathy associated with type 2 diabetes mellitus (E11.43) Active confirmed Problem 160055563 History of endom etrial cancer (Z85.42) Active confirmed Problem 510985343 Pure hypercholesterolemia (E78.00) Active confirmed Problem 725028975 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) Active confirmed Problem Intermittent spinal claudication (970152249) Intermittent spinal claudication (G95.19) Active confirmed Vital Signs Blood pressure diastolic 60 mm Hg 10/30/2024 mari ght is down 6 pounds since 07-13-24 Height 65.25 in 10/30/2024 weight is down 6 pounds since 07-13-24 Blood pressure systolic 142 mm Hg 10/30/2024 weig ht is down 6 pounds since 07-13-24 Weight 176 lbs 10/30/2024 weight is down 6 pounds since 07-13-24 BMI 29.06 kg/m2 10/30/2024 weight is down 6 pounds since 07-13-24 Encounters Encounter Location Date Provider Diagnosis Vito Joel MD [address] [place] [address] [id number] 07/06/2024 Vito Joel Blood tests for rout ine general physical examination Z00.00 ; Essential hypertension I10 ; Prediabetes R73.09 and Pure hypercholesterolemia E78.00 Vito Joel MD [address] [place] [address] [id number] 03/23/2024 Vito Joel Acute COVID-19 U07.1 Vito Joel MD [address] [place] [address] [id number] 07/13/2024 Vito Joel Essential hypertensi on I10 ; Annual physical exam Z00.00 ; Pure hypercholesterolemia E78.00 ; 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 ; Diabetic autonomic neuropathy associated with type 2 diabetes mellitus E11.43 ; Colon cancer screening Z12.11 and Depression screening Z13.31 Vito Joel MD [address] [place] [address] [id number] 10/30/2024 Vito Joel Small bowel obstruct ion K56.609 and Essential hypertension I10 Vito Joel MD [address] [place] [address] [id number] 01/11/2024 Vito Joel MD [address] [place] [address] [id number] 03/23/2024 Vito Joel Acute COVID-19 U07.1 Vito Joel MD [address] [place] [address] [id number] 04/24/2024 Vito Joel MD [address] [place] [address] [id number] 06/13/2024 Vito Joel Essential hypertensi on I10 Vito Joel MD [address] [place] [address] [id number] 07/11/2024 Vito Joel MD [address] [place] [address] [id number] 09/07/2024 Vito Joel MD [address] [place] [address] [id number] 09/20/2024 Vito Joel MD [address] [place] [address] [id number] 10/06/2024 Vito Joel MD [address] [place] [address] [id number] 10/19/2024 Vito Joel Assessments Encounter Date Diagnosis (ICD [...] Z00.00) labs reviewed and discussed with patient 10/30/2024 Small bowel obstruct ion (ICD-10 - K56.609) has recovered well. Total time spent on the date of the encounter is 35 minutes including both face to face time spent and time spent reviewing documentation, pertinent lab data, studies and counseling the patient. 03/23/2024 Acute COVID-19 (ICD- 10 - U07.1) 06/13/2024 Essential hypertensi on (ICD-10 - I10) 07/06/2024 Prediabetes (ICD-10 - R73.09) 07/13/2024 Pure hypercholesterolemia (ICD-10 - E78.00) stable, will contiue to monitor 10/30/2024 Essential hypertensi on (ICD-10 - I10) is doing well on amlodipine, will continue current regiment 07/06/2024 Pure hypercholesterolemia (ICD-10 - E78.00) 07/13/2024 [...] 11/12/2022 Next Appt Details Provider Name:Vito romero, 11/28/2024 11:30:00 AM, [address] [place] [address], [address], [phone], Provider Name:Vito romero, 01/09/2025 08:00:00 AM, [address] [place] [address], [address], [phone], Provider Name:Vito romero, 01/16/2025 10:00:00 AM, [address] [place] [address], [address], [phone], Provider Name:Vito romero, 07/10/2025 08:00:00 AM, [address] [place] [address], [address], [phone], Provider Name:Vito romero, 07/17/2025 01:00:00 PM, [address] [place] [address], [address], [phone], Insurance Providers Payer Name Payer Address Payer Phone Subscriber Number Group Number Insured Name Patient Relationship to Insured Coverage Start Date Coverage End Date [facility] Manuel WEEMS [id number] [place] [id number] Maria Ines Peacock Self - patient is the insured Medical (General) History Medical History History ICD Code hysterectomy (2002) and oopherectomy endometrial cancer - 200211/24/2012 - refuses Colonsco py 2013; REFUSED COLONOSCOPY - DON'T ASK AGAIN 08/17/16 Prediabetes R73.09 Prediabetes undefined Surgical History Surgery Date(Month/Year) left hip replacement 07/2010 right hip replacement 07/1994
--- OUTSIDE RECORDS SUMMARY | 2024-11-06 12:31 | XMS_ITS ---
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 fasciitis, bilateral (M72.2) Active confirmed Vital Signs Height 5 ft 5 in in 07/13/2024 Weight 182 lbs 07/13/2024 BMI 30.28 kg/m2 07/13/2024 Blood pressure systolic 120 mm Hg 07/13/19 25 Blood pressure diastolic 70 mm Hg 025 Procedures Procedure Date Ordered Date Performed Result Body Sit e 73115-FOARXDP NAIL, 6 OR MORE 07/13/2024 N/A 95723 I&D ABSCESS- SIMPLE,SINGLE 07/13/2024 N/A Encounters Encounter Location Date Provider Diagnosis [facility] [place] [address] [place] [address] 07/13/2024 Irais Black Pain in right foot [...] INSTRUCTIONS.pdf) Pending Test Test Name Order Date [id number] NAIL, 6 OR MORE 07/13/2024 58482 I&D ABSCESS- SIMPLE,SINGLE 025 Next Appt Details Follow Up: 2 Weeks,prn, Reas on: Provider Name:Irais Prieto , 11/06/2024 03:15:00 PM, [address] [place] [address], [phone], Procedure Notes * Category Sub-Category Detail [...] use of a nail nipper and/or dremel-type soap grinder, to a more viable healthy nail [...] to maintain effectiveness in symptomatic relief - 75590 I&D nail abscess Location Medial nail bor [...] dispensed. Recommended Tylenol or Motrin for pain/discomfort (69892) Type Single, Abscess Anesthesia Topically with ethyl chloride per Pt preference Progress Notes * Maria Ines KAM ADOB:[birth year] (84 yo F)Acc No.[id number]:07/13/2024 Progress Note Patient:?Maria Ines KAM Provider:?Irais Prieto DPM :1940???Age:84 Y???Sex:Female D ate:07/13/2024 Address:[address] [place], [place] [phone] Pcp:Vito Joel MD Subjective: * Chief Complaints: [...] History:?historecto my left and right hip replacement 8905-3723 * Hospitalization/Major Diagno stic Procedure:?Denies Past Hospitalization [...] Plan: * Treatment: 2.?Abscess of toe, left?Procedure: 47555 I&D ABSCESS- SIMPLE,SINGLE Notes: Patient Educated with: [...] use of a nail nipper and/or dremel-type soap grinder, to a more viable healthy nail [...] to maintain effectiveness in symptomatic relief - 90933.?I&D nail abscess:?Type?Single, Abscess.?Anesthesia?Topically with ethyl chloride per [...] dispensed. Recommended Tylenol or Motrin for pain/discomfort (11181).? * Procedure Codes:?78067 DEBRI DE NAIL, 6 OR MORE, Modifiers: XS 33272 DRAINAGE OF SKIN ABSCESS, Modifiers: TA * [...] Prieto DPM Date:?2024 Generated for Chey winslow/Sofie/Dwayneitting on:?11/06/2024 12:30 PM EDT History and Physical Notes * [...]
== END 2024-11-06 10:54 | disposition home or self-care (01) ==
LOC: HO.HMGCX 10:53
PROVIDERS: PCP Internal Medicine; Visit Provider Nurse Practitioner Family
DX: R31.29 Other microscopic hematuria (principal); N28.1 Cyst of kidney, acquired
CPT/HCPCS: 76775

== ENCOUNTER → 2024-11-06 10:56 | Outpatient (BNV) | payer OTHER, SELFPAY | PROVIDERS: PCP Internal Medicine; Visit Provider Radiology Vascular & Interventional Radiology | DX: R31.29 Other microscopic hematuria (principal) | CPT/HCPCS: 76775 ==

== ENCOUNTER 2024-11-28 09:36 | Outpatient (AMB) | payer OTHER, SELFPAY ==
--- NOTE | 2024-11-28 09:48 | A.OFFVIS_ITS ---
Intake Visit Reasons: 1y/US(set) Intake Note: Patient presents today for follow up Micro hematuria Urology Medications: none Blood Thinner: aspirin Smoker: No Adjunct Professor Required: No Accompanied by: Self / Same As Patient Allergies No Known Allergies Allergy (Verified 11/28/24 09:52) HPI Comments Details: See is a very pleasant 84-year-old female patient of Dr. Joel. She has a past medical history of autonomic neuropathy due to diabetes, seizure disorder, intermittent spinal claudication, neuropathy, hypercholesteremia, hypertension, and endometrial cancer. She presents to the office today for follow-up. In discussion with the patient today she discusses her recent hospitalization here at [facility] for right-sided abdominal pain she had been experiencing at which time she was noted to have evidence of small-bowel obstruction admitted on 09/07/2024 and initially treated non operatively with nasogastric tube decompression. The patient failed nonoperative management and on 09/10/2024 underwent exploratory laparotomy, lysis of adhesions and small-bowel resection. She had a prolonged hospital course with multiple medical issues including acute kidney injury, possible inflammatory bowel disease, liver cirrhosis and elevated troponin. She reports since hospitalization and rehab she is back at [employer] and has been doing well. She continues with physical therapy to increase her strength. She currently denies any bothersome urinary issues or concerns. Recent renal imaging results were reviewed with the patient today. 11/26 bilateral kidneys are normal in size and echotexture. Benign 10 mm right renal cyst and benign 6 mm left renal cysts. No hydronephrosis or renal calculi noted bilaterally. In office urinalysis results reviewed with the patient today negative leukocytes, nitrates, and microscopic hematuria. Previous workup has also included urine cytology 08/28 Negative for high-grade urothelial carcinoma. Urine cultures are as follows 08/28 and 07/29 E.coli. She denies urinary urgency, urinary frequency, incontinence, nocturia, hematuria, dysuria, foul smelling urine, changes to urinary stream, flank pain, fever, and or chills. She is happy with her current voiding parameters. She otherwise denies any other issues or concerns at this time. [facility] Medical History Lumbar spondylosis Autonomic neuropathy due to type 2 diabetes mellitus History of seizure disorder Intermittent spinal claudication Neuropathy Localization-related (focal) (partial) symptomatic epilepsy and epileptic syndromes with simple partial seizures, not intractable, without status epilept icus Hypercholesteremia Essential hypertension Endometrial cancer Surgical History Hx of exploratory laparotomy (09/10/24) History of hysterectomy with bilateral oophorectomy Social History Household Members: None Housing: Assisted Living Facility Housing Other:: Liz Do you presently have visiting nurse or other home services: No Alcohol intake: current Alcohol intake frequency: holidays/special occasions only Patient Tobacco Use Status: Never used Tobacco service: No Current occupational status: retired Review of Systems Const Reports no additional complaints Eyes Reports no additional complaints ENT Reports no additional complaints Card Reports as per HPI Resp Reports no additional complaints GI Reports no additional complaints Reports as per HPI Musc Reports as per HPI Neuro Reports as per HPI Psych Reports no additional complaints Endo Reports as per HPI Matt/Lymph Reports no additional complaints Aller/Immun Reports no additional complaints Physical Exam Const General: cooperative, healthy appearing, comfortable, no acute distress, well developed, alert and awake Orientation/consciousness: patient oriented x3 Limitations: ambulation with cane HEENT Head: Yes normal to inspection, Yes normocephalic and Yes atraumatic Ears: hearing grossly normal bilaterally Eyes General: appearance normal, both eyes and all related structures Neck Neck: Yes normal visual inspection and Yes trachea midline Chest Chest palpation & inspection: normal inspection of the chest Resp Effort & Inspection: normal respiratory effort and able to speak in complete sentences Cardio Rate: regular rate GI Inspection: Yes normal to inspection General: Yes no CVA tenderness Back/Spine/Pelvis Back: no CVA tenderness Skin General skin exam: no rashes or lesions noted Neuro General: patient oriented x3 Extrem General: Yes normal to inspection Psych Appearance: grossly normal and well kempt Mental Status: mental status grossly normal Speech and movement: Normal speech and movement present and Clear speech present Affect: normal affect Attitude: cooperative Thought process: Normal thought process present Thought content: Normal thought content present Insight: Fair insight present (Psych) Judgement: Fair judgement present (Psych) Results AMB Urinalysis, Automated UA Leukoctes 0 Gabriel/uL Last Edit by Trevor Lang on 11/28/24 10:12 UA Nitrite Last Edit by [employer] on 11/28/24 10:12 UA Urobilinogen 0.2 mg/dL Last Edit by [employer] on 11/28/24 10:12 UA Protein 0 mg/dL Last Edit by [employer] on 11/28/24 10:12 UA pH 6.0 Last Edit by [employer] on 11/28/24 10:12 UA Blood 0 Kristopher/uL Last Edit by [employer] on 11/28/24 10:12 UA Specific [place] 1.010 Last Edit by [employer] on 11/28/24 10:12 UA Ketone Last Edit by [employer] on 11/28/24 10:12 UA Bilirubin 0 mg/dL Last Edit by [employer] on 11/28/24 10:12 UA Glucose 0 mg/dL Last Edit by [employer] on 11/28/24 10:12 Results Reviewed Results Reviewed: Date of Service: 11/06/24 Procedure(s): US renal BI US Renal Comparison: None Findings: Right kidney normal size and echotexture, 11.4 cm length. Benign 10 mm cyst noted. Left kidney normal size and echotexture, 11.0 cm length. Benign 6 mm cyst noted. No hydronephrosis of either kidney. Normal color Doppler IMPRESSION: 1. Normal kidneys. Assessment & Plan Assessment & Plan (1) Renal cyst: Code(s): N28.1 - Cyst of kidney, acquired Category: Medical Plan In office urinalysis results reviewed with the patient today; as noted above. She currently denies any bothersome urinary issues or concerns. She reports be happy with current voiding parameters. Will continue with surveillance monitoring. Recent renal imaging results reviewed with the patient today; as noted above. Discussed UTI prevention with D mannose supplement, vitamin-C, increasing fluid intake, behavioral therapy with timed voiding, perineal hygiene and postcoital voiding, and management of constipation with stool softeners and increased fiber intake. Follow-up in 1 year with [facility]; or sooner with any issues, concerns, and or questions. Orders: Orders AMB Urinalysis Automated Today Z13.9 - Encounter for screening, unspecified Patient Instructions: The patient had an opportunity to ask questions regarding the treatment plan. All questions were answered. Physical exam, labs, and imaging were discussed and reviewed in detail. As well as risks, benefits, and discussion of treatment choices. No major barriers to understanding were identified. The patient expressed understanding and agreement with the above treatment plan. The patient was made aware they should contact our office by phone for worsening of their current condition, the appearance of new symptoms, or with any questions or concerns. Compliance is encouraged with any medications and follow up testing that is ordered. It is a privilege to be allowed the opportunity to participate in? your urological care.? Again, if you have any questions or concerns If you have any questions or concerns please do not hesitate to contact me. The office is [phone]. This note is constructed using voice recognition software. While every effort has been made to ensure accuracy loft worker head errors may have been included. Yours sincerely, MARQUIS Juares Coding Level of Care Code Est Pt Level 3 (84183) Complex EM visit Add On G2211 Diagnoses Renal cyst N28.1
--- OUTSIDE RECORDS SUMMARY | 2024-11-28 10:13 | XMS_ITS ---
Author Organization Vito Joel MD Address [address] [place] [phone] Care Team Providers Care Diagram Clerk Name Role Phone Vito Joel Primary Care Provider REASON FOR VISIT refill Medications Medication SIG (Take, Route, Frequency, Duration) Notes Start Date End Date Status amLODIPine Besylate 10 MG 1 tablet Orall y Once a day for 90 days 10/19/2024 Active Encounters Encounter Location Date Provider Diagnosis Vito Joel MD [address] [place] [phone] 11/10/2024 Vito Joel Essential hypertension I10 Assessments Encounter Date Diagnosis (ICD Code) Assessment Notes Treatment Notes Treatment Clinical Notes Section Notes 11/10/2024 Essential hypertension (ICD-10 - I10) Plan Of Treatment Medication Medication Name Sig Start Date Stop Date Notes amLODIPine Besylate 10 MG 1 tablet Orall y Once a day for 90 days 10/19/2024 Next Appt Details Provider Name:Vito romero, 11/28/2024 11:30:00 AM, [address] [place] [address], Suite [facility], [place], [place], [phone], Provider Name:Vito romero, 01/09/2025 08:00:00 AM, [address], [address], [place], [place], [phone], Provider Name:Vito Johnson tor, 01/16/2025 10:00:00 AM, [address], [address], [place], [phone], Provider Name:Vito Johnson ier, 07/10/2025 08:00:00 AM, [address], [address], [place], [phone], Provider Name:Vito Johnson ier, 07/17/2025 01:00:00 PM, [address] [place] [address], [address], [place], [phone], Progress Notes * Maria Ines KAM ADOB:[birth year] (84 yo F)Acc No.[id number]:11/10/2024 Patient:?Maria Ines KAM :1940???Age:84 Y???Sex:Female Address:[address] [place] [address] * Refills? Refill amLODIPine Besylate Tablet, 10 MG, Orally, 90, 1 tablet, Once a day, 90 days, Refills=3 * true * Date:? Generated for Chey winslow/Sofie/Clementsmitting on:?11/28/2024 10:13 AM EDT
== END 2024-11-28 10:14 | disposition home or self-care (01) ==
LOC: HO.HUSH 09:36
PROVIDERS: PCP Internal Medicine; Visit Provider Nurse Practitioner Family
DX: Z13.9 Encounter for screening, unspecified (principal); N28.1 Cyst of kidney, acquired
CPT/HCPCS: 99213

== ENCOUNTER → 2024-11-28 09:36 | Outpatient (BNVA) | payer OTHER, SELFPAY | PROVIDERS: PCP Internal Medicine; Visit Provider Nurse Practitioner Family | DX: N28.1 Cyst of kidney, acquired (principal); Z13.9 Encounter for screening, unspecified | CPT/HCPCS: 81003 ==

== ENCOUNTER 2025-02-09 11:26 | Outpatient (REF) | payer OTHER, SELFPAY ==
--- OUTSIDE RECORDS SUMMARY | 2025-02-09 11:28 | XMS_ITS | Patient Health Record ---
Author Organization [facility] Address [address] [facility] [address] [place] [address] Care Team Providers Care Chemical Sales Representative Name Role Phone Yusuf Awad MD Primary Care Provider Jolene Pruitt Unavailable [phone] Allergies No Known Allergies Reason For Referral No Information Medications Medication SIG (Take, Route, Frequency, Duration) Notes Start Date End Date Status Milk of Magnesia 400 MG/5ML 30 mL Orally Once a day As needed 09/20/2024 Active Lasix 20 MG 1 tablet Orally Once a day 09/21/2024 Active Tylenol 325 MG 2 tablets Orally every 8 hrs As needed 09/20/2024 Active Aspirin 81 MG 1 tablet Orally Once a day 09/21/2024 Active amLODIPine Besylate 10 MG 1 tablet Orall y Once a day 09/21/2024 Active Bisacodyl 10 MG 1 suppository Rectal Once a day As needed 09/20/2024 Active Atorvastatin Calcium 80 MG 1 tablet Oral ly every evening 09/20/2024 Active carBAMazepine 200 MG 1 tablet Orally Twi ce a day 09/20/2024 Active Problems Problem Type SNOMED Code ICD Code Onset Dates Problem Status W/U Status Risk Notes Problem Tinea corporis (38277955) Tinea corporis (B35.4) Active confirmed Problem Malignant neoplasm o f corpus uteri, excluding isthmus (551921799) 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) Active confirmed Problem Type II diabetes mellitus without complication (555449734) Type 2 diabetes mellitus without complications (E11.9) Active confirmed Problem Epilepsy (75615433) Epilepsy, unspecified, not intractable, without status epilepticus (G40.909) Active confirmed Problem Essential hypertensi on (24182684) Essential (primary) hypertension (I10) Active confirmed Problem Walking disability (322259087) Difficulty in walking, not elsewhere classified (R26.2) Active confirmed Problem Open wound of left forearm (disorder) (91655870567808687) Unspecified open wound of left forearm, initial encounter (S51.802A) Active confirmed Problem Pure hypercholesterolemia (570829492) Pure hypercholestero lemia, unspecified (E78.00) Active confirmed Encounters Encounter Location Date Provider Diagnosis Liz at [address] [phone] 09/21/2024 Joleneyunier Bear Tinea corporis B35.4 ; Type 2 diabetes mellitus without complications E11.9 ; Epilepsy, unspecified, not intractable, without status epilepticus G40.909 and Unspecified open wound of left forearm, initial encounter S51.802A Liz at [address] [address] 09/28/2024 Jolene Bear Tinea corporis B35.4 ; Type 2 diabetes mellitus without complications E11.9 ; Epilepsy, unspecified, not intractable, without status epilepticus G40.909 and Unspecified open wound of left forearm, initial encounter S51.802A Assessments Encounter Date Diagnosis (ICD Code) Assessment Notes Treatment Notes Treatment Clinical Notes Section Notes 09/21/2024 Tinea corporis (ICD-10 - B35.4) 09/21/2024 Type 2 diabetes mellitus without complications (ICD-10 - E11.9) 09/28/2024 Tinea corporis (ICD-10 - B35.4) 09/28/2024 Type 2 diabetes mellitus without complications (ICD-10 - E11.9) 09/21/2024 Epilepsy, unspecified, not intractable, without status epilepticus (ICD-10 - G40.909) 09/21/2024 Unspecified open wound of left forearm, initial encounter (ICD-10 - S51.802A) 09/28/2024 Epilepsy, unspecified, not intractable, without status epilepticus (ICD-10 - G40.909) 09/28/2024 Unspecified open wound of left forearm, initial encounter (ICD-10 - S51.802A) 10/05/2024 Other On exam, alert & cooperative with care. We examined Her L FA which is nicely resolved. Her bilateral groin is much improved; R groin is resolved and L is improved with mild erythema remaining, There were no findings to indicate any acute underlying infectious process. I cleaned the groin with wound cleanser and nursing applied 2% miconazole cream I recommended nursing apply 2% miconazole cream to her groin BID and DC treatment to L FA as the wound is resolved. Turn, reposition & offload Q2 hours & PRN to aid in wound healing. Encourage appropriate dietary supplementation to aid in wound healing. I will follow up in about one week to monitor her progress if she is still in the alf and nursing will reach out in the interim w any questions or concerns. Patient and nursing agree w plan of care. I Jolene Bear MSN, AGPCNP-BC examined, evaluated and treated the patient. Dr. Jerica Reilly was available for any question or concerns that I may have had. 09/21/2024 Other On exam, alert & cooperative with care. We examined Her R AC which is resolved. Groin has dry flaky erythema and L FA has a small linear granular skin tear. There were no findings to indicate any acute underlying infectious processes. I cleaned the wounds with wound cleanser and applied 2% miconazole cream to her groin and SP to periwound of L FA, hydrogel f.b DCD. I recommended nursing apply 2% miconazole cream to her groin BID and SP to periwound of L FA, hydrogel f.b DCD T TH Sat & PRN. Turn, reposition & offload Q2 hours & PRN to aid in wound healing. Encourage appropriate dietary supplementation to aid in wound healing. I will follow up in about one week to monitor her progress and nursing will reach out in the interim w any questions or concerns. Patient and nursing agree w plan of care. I Jolene Bear MSN, AGPCNP-BC examined, evaluated and treated the patient. Dr. Jerica Reilly was available for any question or concerns that I may have had. 09/28/2024 Other On exam, alert & cooperative with care. We examined Her L FA which is nicely resolved. Her bilateral groin is much improved; R groin is resolved and L is improved with mild erythema remaining, There were no findings to indicate any acute underlying infectious process. I cleaned the groin with wound cleanser and nursing applied 2% miconazole cream I recommended nursing apply 2% miconazole cream to her groin BID and DC treatment to L FA as the wound is resolved. Turn, reposition & offload Q2 hours & PRN to aid in wound healing. Encourage appropriate dietary supplementation to aid in wound healing. I will follow up in about one week to monitor her progress if she is still in the alf and nursing will reach out in the interim w any questions or concerns. Patient and nursing agree w plan of care. I Jolene Bear MSN, [facility]- examined, evaluated and treated the patient. Dr. Jerica Reilly was available for any question or concerns that I may have had. Plan Of Treatment No Information Insurance Providers Payer Name Payer Address Payer Phone Subscriber Number Group Number Insured Name Patient Relationship to Insured Coverage Start Date Coverage End Date [facility] ([facility] [address] [place], [place] [phone] [id number] Maria Ines Kam Self - patient is the insured 7 Medical (General) History Medical History History ICD Code Acute kidney failure, unspecified N17.9 Difficulty in walking, not elsewhere cla ssified R26.2 Encounter for surgical aftercare followi ng surgery on the digestive system Z48.815 Epilepsy, unspecified, not intractable, without status epilepticus G40.909 Essential (primary) hypertension I10 Low back pain, unspecified M54.50 Malignant neoplasm of endometrium C54.1 Need for assistance with personal care Z 74.1 Noninfective gastroenteritis and colitis , unspecified K52.9 Partial intestinal obstruction, unspecif ied as to cause K56.600 Pure hypercholesterolemia, unspecified E 78.00 Weakness R53.1
--- OUTSIDE RECORDS SUMMARY | 2025-02-09 11:29 | XMS_ITS | Patient Health Record ---
Author Organization Vito Joel MD Address [address] [place], [place] [id number] Care Team Providers Care Vp Platforms Name Role Phone Vito Joel Primary Care Provider Allergies No Known Allergies Results Component Value Reference Range Notes Hemoglobin A1c Reviewed date:12/28/2024 10:42:40 AM Interpretation: Performing Lab: Notes/Report: Hemoglobin A1c 5.5 Complete Blood Count Auto Di ff Reviewed date:07/06/2024 01:41:47 PM Interpretation: Performing Lab:[facility], [address] [place] [address] Notes/Report: White Blood Count 5.9 4.8-10.8 X10*3/uL [...] NRBC Abs Auto 0.000 0.0-0.012 X10*3/uL Comprehensive Fortine. Panel Fa st Reviewed date:07/06/2024 01:53:50 PM Interpretation: Performing Lab:[facility], [address] [place] [address] Notes/Report: Sodium 135 135-145 mmol/L Potassium 4.1 [...] Panel Reviewed date:07/06/2024 01:43:16 PM Interpretation: Performing Lab:[facility], [address] [place] [address] Notes/Report: Triglycerides 81 <150 mg/dL Desirable Triglyceride: [...] Random Reviewed date:07/06/2024 01:41:54 PM Interpretation: Performing Lab:[facility], [address] [place] [address] Notes/Report: Creatinine Urine 67.54 Microalbumin Urine 25.0 Microalbum/Creatinine Ratio Ur 37.0 <30 ug/mg cr Albumin/Creatinine Ratio Reference Ranges: Normal: < 30 ug/mg creatinine Microalbuminuria: 30 - 300 ug/mg creatinine Clinical Albuminuria: > 300 ug/mg creatinine Hemoglobin A1c Reviewed date:07/06/2024 01:43:25 PM Interpretation: Performing Lab:[facility], [address] [place] [address] Notes/Report: Hemoglobin A1c % 5.6 <6.0 % [...] average glucose, using the formula of the H8B-Oihrxbp Average Glucose study (ADAG), Diabetes Care, Vol.31,#8, Feb. 2007 UA ClnCatch+Micro w/rflx Cul t Reviewed date:07/13/2024 11:30:15 AM Interpretation:JENNIFER 07/13/24 Performing Lab:[facility], [address] [place] [address] Notes/Report: Urine, Clean Catch Color Urine Yellow Appearance Urine Clear PH 7.0 5.0-9.0 Glucose Urine UA Negative Negative mg/dL Urine Blood Small (1+) Negative Specific [place] - Urine 1.010 1.005-1.025 Urine Protein Negative [...] Notes/Report: Negative Occult Blood, Stool, Guaiac Neg Glucose, finger stick Reviewed date:12/28/2024 10:35:13 AM Interpretation: Performing Lab: Notes/Report: Value 98 XR hip LT min 2V Reviewed date:06/18/2024 02:18:50 PM Interpretation: Performing Lab: Notes/Report: [facility] [address] [place] [address] [address] [place] [address] XRay Report Signed Patient: Maria Ines Kam MR#: [id number] 983 : 1940 Acct:[id number] Age/Sex: 84 / F ADM Date: 04/20/24 Loc: HO.HOSX Attending Dr: Julissa Lama MD Ordering Physician: Julissa Apple Date of Service: 04/20/24 Procedure(s): XR hip LT min 2V Accession Number(s): [id number] cc: Vito Joel MD; Julissa Apple EXAMINATION: [...] Espinoza MD in OV> 06/16/24 1607 DD/ TD/TT: 04/20/24957 Hardware Trainer: [facility] [address] [place] [address] XRay Report Signed Patient: Armin Kam MR#: [id number] 983 : 1940 Acct:[id number] Age/Sex: 84 / F ADM Date: 04/20/24 Loc: HO.HOSX Attending Dr: Julissa Lama MD Ordering Physician: Julissa Apple Date of Service: 04/20/24 Procedure(s): XR hip LT min 2V Accession Number(s): [id number] cc: Vito Joel MD; Julissa Apple EXAMINATION: [...] Espinoza MD in OV> 06/16/24 1607 DD/ 3 TD/TT: 04/20/24957 Hardware Trainer: XR lumbar spine 2-3V Reviewed date:06/18/2024 02:19:34 PM Interpretation: Performing Lab: Notes/Report: [facility] [address] [place] [address] Drive [address] [place] [address] XRay Report Signed Patient: Maria Ines Kam MR#: [id number] 983 : 1940 Acct:[id number] Age/Sex: 84 / F ADM Date: 04/20/24 Loc: HO.HOSX Attending Dr: Julissa Lama MD Ordering Physician: Julissa Apple Date of Service: 04/20/24 Procedure(s): XR lumbar spine 2-3V Accession Number(s): [id number] cc: Vito Joel MD; Julissa Apple EXAMINATION: [...] by: Julien Espinoza MD 06/16/2024 04:03 PM [facility] Dictated By: Julien Espinoza MD Signed By: <Electronically signed by Julien Espinoza MD in OV> 06/16/24 1603 DD/ 3 TD/TT: 04/20/24957 Hardware Trainer: [facility] [address] [place] [address] XRay Report Signed Patient: Armin Kam MR#: [id number] 983 : 1940 Acct:[id number] Age/Sex: 84 / F ADM Date: 04/20/24 Loc: HO.HOSX Attending Dr: Julissa Lama MD Ordering Physician: Julissa Apple Date of Service: 04/20/24 Procedure(s): XR lum bar spine 2-3V Accession Number(s): [id number] cc: Vito Joel MD; Julissa Apple EXAMINATION: [...] by: Julien Espinoza MD 06/16/2024 04:03 PM [facility] Dictated By: Julien Espinoza MD Signed By: <Electronically signed by Julien Espinoza MD in OV> 06/16/24 1603 DD/ TD/TT: 04/20/24 0958 Hardware Trainer: XR hip RT min 2V Reviewed date:06/18/2024 02:20:56 PM Interpretation: Performing Lab: Notes/Report: [facility] [address] [place] [address] XRay Report Signed Patient: Maria Ines Kam MR#: [id number] 983 : 1940 Acct:[id number] Age/Sex: 84 / F ADM Date: 04/20/24 Loc: [facility] Attending Dr: Julissa Lama MD Ordering Physician: Julissa Apple Date of Service: 04/20/24 Procedure(s): XR hip RT min 2V Accession Number(s): [id number] cc: Vito Joel MD; Julissa Apple EXAMINATION: [...] by: Julien Espinoza MD 06/16/2024 04:05 PM [facility] Dictated By: Julien Espinoza MD Signed By: <Electronically signed by Julien Espinoza MD in OV> 06/16/24 1605 DD/ TD/TT: 04/20/24 0958 Hardware Trainer: [facility] [address] [place] [address] [place] [address] XRay Report Signed Patient: Armin Kam MR#: [id number] 983 : 1940 Acct:[id number] Age/Sex: 84 / F ADM Date: 04/20/24 Loc: [facility] Attending Dr: Julissa Lama MD Ordering Physician: Julissa Apple Date of Service: 04/20/24 Procedure(s): XR hip RT min 2V Accession Number(s): [id number] cc: Vito Joel MD; Julissa Apple EXAMINATION: [...] by: Julien Espinoza MD 06/16/2024 04:05 PM [facility] Dictated By: Julien Espinoza MD Signed By: <Electronically signed by Julien Espinoza MD in OV> 06/16/24 1605 DD/ TD/TT: 04/20/24 0958 Hardware Trainer: XR sacrum coccyx min 2V Reviewed date:06/18/2024 02:20:28 PM Interpretation: Performing Lab: Notes/Report: [facility] [address] [place] [address] Drive [address] [place] [address] XRay Report Signed Patient: Maria Ines Kam MR#: [id number] 983 : 1940 Acct:[id number] Age/Sex: 84 / F ADM Date: 04/20/24 Loc: HO.HOSX Attending Dr: Julissa Lama MD Ordering Physician: Julissa Apple Date of Service: 04/20/24 Procedure(s): XR sacrum coccyx min 2V Accession Number(s): [id number] cc: Vito Joel MD; Julissa Apple EXAMINATION: [...] Espinoza MD in OV> 06/16/24 1610 DD/ TD/TT: 04/20/24 0958 Hardware Trainer: [facility] [address] [place] [address] XRay Report Signed Patient: Armin Kam MR#: [id number] 983 : 1940 Acct:[id number] Age/Sex: 84 / F ADM Date: 04/20/24 Loc: [facility] Attending Dr: Julissa Lama MD Ordering Physician: Julissa Apple Date of Service: 04/20/24 Procedure(s): XR sac rum coccyx min 2V Accession Number(s): [id number] cc: Vito Joel MD; Julissa Apple EXAMINATION: [...] Espinoza MD in OV> 06/16/24 1610 DD/ TD/TT: 04/20/24 0958 Hardware Trainer: Urine Culture Reviewed date:07/13/2024 12:31:12 PM Interpretation: Performing Lab:[facility], [address] [place] [phone] Notes/Report: O:ESCCOL Escherichia coli Urine Culture Quant Urine Culture > 100,000 cfu/mL Ampicillin 8 Cefazolin 2 Cefepime <=0.12 Ceftriaxone <=0.25 Ciprofloxacin <=0.06 Gentamicin <=1 Nitrofurantoin <=16 Trimethoprim/Sulfamethox azole <=20 UA ClnCatch+Micro w/rflx Cul t Reviewed date:09/07/2024 12:41:56 PM Interpretation: Performing Lab:[facility], [address] [place] [phone] Notes/Report: Urine, Clean Catch Color Urine Dark Yellow Appearance Urine Clear PH 6.0 5.0-9.0 Glucose Urine UA Negative Negative mg/dL Urine Blood Negative Negative Specific [place] - Urine >= 1.030 1.005-1.025 Urine Protein [...] 10:29:18 AM Interpretation:reel radiology Performing Lab: Notes/Report: [address] [place] [address] CT Scan Report Signed with Breana Patient: Maria Ines Kam MR#: [id number] 983 : 1940 Acct:[id number] Age/Sex: 84 / F ADM Date: 09/06/24 [facility]: Kavon Burnham MD Ordering Physician: Mago Mckeon MD Date of Service: 09/06/24 Procedure(s): CT abdomen pelvis w IV con Accession Number(s): [id number] cc: Vito Joel MD; Mago Mckeon MD Report Number: [id number]: Total DLP = 734.00 mGy-cm ADDENDUM This [...] in OV> 09/06/241832 DD/ 31 TD/TT: 09/06/241831 Hardware Trainer: [place] [address] [address] Scan Report Signed with Addenda Patient: Armin Kam MR#: [id number] 983 : 1940 Acct:[id number] Age/Sex: 84 / F ADM Date: 09/06/24 Loc: [place] [address]: Xavier Burnham MD Ordering Physician: Mago Mckeon MD Date of Service: 09/06/24 Procedure(s): CT abd omen pelvis w IV con Accession Number(s): [id number] cc: Vito Joel MD; Mago Mckeon MD Report Number: [id number]: Total DLP = 734.00 mGy-cm ADDENDUM This [...] in OV> 09/06/241832 DD/ 31 TD/TT: 09/06/241831 Hardware Trainer: SKYLER nichole 1V Reviewed date:09/07/2024 10:29:44 AM Interpretation: Performing Lab: Notes/Report: [address] [address] XRay Report Signed Patient: Maria Ines Kam MR#: [id number] 983 : 1940 Acct:[id number] Age/Sex: 84 / F ADM Date: 09/06/24 Loc: [facility] ZHAO Attending Dr: Jose Wallace MD Ordering Physician: Mago Mckeon MD Date of Service: 09/06/24 Procedure(s): XR chest 1V Accession Number(s): [id number] cc: Vito Joel MD; Mago Mckeon MD [...] in OV> 09/06/242122 DD/ 20 TD/TT: 09/06/242120 Hardware Trainer: [place] [address] XRay Report Signed Patient: Armin Kam MR#: [id number] 983 : 1940 Acct:[id number] Age/Sex: 84 / F ADM Date: 09/06/24 Loc: [facility] Attending Dr: Lakesha Wallace MD Ordering Physician: Mago Mckeon MD Date of Service: 09/06/24 Procedure(s): XR jose st 1V Accession Number(s): [id number] cc: Vito Joel MD; Mago Mckeon MD [...] in OV> 09/06/242122 DD/ 20 TD/TT: 09/06/242120 Hardware Trainer: Complete Blood Count no Diff Reviewed date:09/07/2024 12:33:32 PM Interpretation: Performing Lab:[facility], [address] [place] [phone] Notes/Report: White Blood Count 21.7 4.8-10.8 X10*3/uL [...] Panel Reviewed date:09/07/2024 10:30:09 AM Interpretation: Performing Lab:[facility], [address] [place] [address] Notes/Report: Sodium 137 135-145 mmol/L Potassium 3.9 [...] Sensitivity Reviewed date:09/08/2024 12:12:52 PM Interpretation: Performing Lab:[facility], [address] [place] [address] Notes/Report: Troponin-I High Sensitivity 73.8 <3.5-17.0 ng/L Critical value for test(s): TROPONIN Results called to and read back by: MANUEL Person calling: NGUYENQ Date: 09/07/24 Time: 1915 The Cronin high sensitivity Troponin-I results should be used in conjunction with other diagnostic information such as ECG, clinical observations and information, and patient symptoms to aid in the diagnosis of MT. XR chest 1V Reviewed date:09/08/2024 12:12:42 PM Interpretation: Performing Lab: Notes/Report: [address] [address] XRay Report Signed Patient: Maria Ines Kam MR#: [id number] 983 : 1940 Acct:[id number] Age/Sex: 84 / F ADM Date: 09/06/24 Loc: [place] [address]: Kavon Burnham MD Ordering Physician: Jose Wallace MD Date of Service: 09/07/24 Procedure(s): XR chest 1V Accession Number(s): [id number] cc: Vito Joel MD; Jose Wallace MD [...] in OV> 09/07/242124 DD/ 23 TD/TT: 09/07/242123 Hardware Trainer: [address] [address] XRay Report Signed Patient: Armin Kam MR#: [id number] 983 : 1940 Acct:[id number] Age/Sex: 84 / F ADM Date: 09/06/24 [facility]: Xavier Burnham MD Ordering Physician: Jose Wallace MD Date of Service: 09/07/24 Procedure(s): XR jose st 1V Accession Number(s): [id number] cc: Vito Joel MD; Jose Wallace MD [...] in OV> 09/07/242124 DD/ 23 TD/TT: 09/07/242123 Hardware Trainer: XR chest 1V Reviewed date:09/08/2024 12:11:49 PM Interpretation: Performing Lab: Notes/Report: [address] [address] XRay Report Signed with Breana Patient: Maria Ines Kam MR#: [id number] 983 : 1940 Acct:[id number] Age/Sex: 84 / F ADM Date: 09/06/24 Loc: ED [facility]-[address]: Kavon Burnham MD Ordering Physician: Jose Wallace MD Date of Service: 09/07/24 Procedure(s): XR chest 1V Accession Number(s): [id number] cc: Vito Joel MD; Jose Wallace MD [...] in OV> 09/07/242126 DD/ 25 TD/TT: 09/07/242125 Hardware Trainer: [address] [address] XRay Report Signed with Breana Patient: Armin Kam MR#: [id number] 983 : 1940 Acct:[id number] Age/Sex: 84 / F ADM Date: 09/06/24 Loc: [facility]-[address]: Xavier Burnham MD Ordering Physician: Jose Wallace MD Date of Service: 09/07/24 Procedure(s): XR jose st 1V Accession Number(s): [id number] cc: Vito Joel MD; Jose Wallace MD [...] in OV> 09/07/242126 DD/ 25 TD/TT: 09/07/242125 Hardware Trainer: XR chest 1V Reviewed date:09/08/2024 12:11:23 PM Interpretation: Performing Lab: Notes/Report: [place] [address] [place] [address] XRay Report Signed Patient: Maria Ines Kam MR#: [id number] 983 : 1940 Acct:[id number] Age/Sex: 84 / F ADM Date: 09/06/24 Loc: [facility] T[facility] Attending Dr: Kavon Burnham MD Ordering Physician: Jose Wallace MD Date of Service: 09/07/24 Procedure(s): XR chest 1V Accession Number(s): [id number] cc: Vito Joel MD; Jose Wallace MD [...] in OV> 09/07/242316 DD/ 15 TD/TT: 09/07/242315 Hardware Trainer: [place] [address] XRay Report Signed Patient: Armin Kam MR#: [id number] 983 : 1940 Acct:[id number] Age/Sex: 84 / F ADM Date: 09/06/24 Loc: [facility] Attending Dr: Xavier Burnham MD Ordering Physician: Jose Wallace MD Date of Service: 09/07/24 Procedure(s): XR jose st 1V Accession Number(s): [id number] cc: Vito Joel MD; Jose Wallace MD [...] in OV> 09/07/242316 DD/ 15 TD/TT: 09/07/242315 Hardware Trainer: Complete Blood Count no Diff Reviewed date:09/08/2024 12:45:54 PM Interpretation: Performing Lab:[facility], [address] [place] [phone] Notes/Report: SPECIMEN QNS White Blood Count 18.4 [...] Panel Reviewed date:09/08/2024 12:10:27 PM Interpretation: Performing Lab:[facility], [address] [place] [address] Notes/Report: Sodium 138 135-145 mmol/L Potassium 4.0 [...] Sensitivity Reviewed date:09/08/2024 12:11:00 PM Interpretation: Performing Lab:[facility], [address] [place] [address] Notes/Report: Troponin-I High Sensitivity 101.3 <3.5-17.0 ng/L Critical value for test(s): TROP Results called to and read back by: MANUEL Person calling: VYASRID Date: [id number] Time:151 The Cronin high sensitivity Troponin-I results should be used in conjunction with other diagnostic information such as ECG, clinical observations and information, and patient symptoms to aid in the diagnosis of MT. FL small bowel follow throug h Reviewed date:09/11/2024 12:48:07 PM Interpretation: Performing Lab: Notes/Report: [address] [address] Fluoroscopy Report Signed Patient: Maria Ines Kam MR#: [id number] 983 : 1940 Acct:[id number] Age/Sex: 84 / F ADM Date: 09/06/24 Loc: HO.S3 352-[address]: Kavon Burnham MD Ordering Physician: Lexi Walsh PA-C Date of Service: 09/08/24 Procedure(s): FL small bowel follow through Accession Number(s): [id number] cc: Vito Joel MD; Lexi Walsh PA-C EXAMINATION: FL SMALL BOWEL SERIES CLINICAL INFORMATION: ?SBO, abd distention, persistent nausea COMPARISON: None available. TECHNIQUE: Following a grocery clerk selling image of the abdomen, thick barium contrast was administered orally, and interval abdominal radiographs were performed to assess for contrast progression through the small bowel. Following contrast transit through the small bowel and into the colon, the patient was placed on the fluoroscopy table, and multiple spot images were obtained. FINDINGS: Program Manager Slp image of the abdomen demonstrates obstructed proximal [...] OV> 09/11/24 1035 DD/ 14 TD/TT: 09/08/242019 Hardware Trainer: [place] [address] Fluoroscopy Report Signed Patient: Armin Kam MR#: [id number] 983 : 1940 Acct:[id number] Age/Sex: 84 / F ADM Date: 09/06/24 Loc: .S3 352-[address]: Xavier Burnham MD Ordering Physician: Lexi Walsh PA-C Date of Service: 09/08/24 Procedure(s): FL sma ll bowel follow through Accession Number(s): [id number] cc: Vito Joel MD; Lexi Walsh PA-C EXAMINATION: FL SMALL BOWEL SERIES CLINICAL INFORMATION: ?SBO, abd distention , persistent nausea COMPARISON: None available. TECHNIQUE: Following a grocery clerk selling im age of the abdomen, thick barium contrast was administered orally, and interval abdominal radiographs were performed to assess for contra st progression through the small bowel. Following contrast transit thr ough the small bowel and into the colon, the patient was placed o n the fluoroscopy table, and multiple spot images were obtained. FINDINGS: Program Manager Slp image of the abdomen demonstrates obstructed proximal [...] OV> 09/11/24 1035 DD/ 14 TD/TT: 09/08/242019 Hardware Trainer: RUIZ XR KUB Reviewed date:09/08/2024 12:10:15 PM Interpretation: Performing Lab: Notes/Report: [address] [address] XRay Report Signed Patient: Maria Ines Kam MR#: [id number] 983 : 1940 Acct:[id number] Age/Sex: 84 / F ADM Date: 09/06/24 Loc: .S3 352-[address]: Kavon Burnham MD Ordering Physician: Kavon Burnham MD Date of Service: 09/08/24 Procedure(s): XR KUB Accession Number(s): [id number] cc: Vito Joel MD; Kavon Burnham MD [...] 09/08/24 0934 DD/ 0850 TD/TT: 09/08/24 0901 Hardware Trainer: [address] [address] XRay Report Signed Patient: Armin Kam MR#: [id number] 983 : 1940 Acct:[id number] Age/Sex: 84 / F ADM Date: 09/06/24 Loc: HO.S3 352-[address]: Xavier Burnham MD Ordering Physician: Kavon Burnham MD Date of Service: 09/08/24 Procedure(s): XR KUB Accession Number(s): [id number] cc: Vito Joel MD; Kavon Burnham MD [...] OV> 09/08/24 0934 DD/ 0850 TD/TT: 09/08/24 09 Hardware Trainer: RUIZ Troponin-I High Sensitivity Reviewed date:09/08/2024 12:09:04 PM Interpretation: Performing Lab:[facility], [address] [place] [phone] Notes/Report: Unable to obtain 2x 1037 09/08/24 [place] Troponin-I High Sensitivity 117.1 <3.5-17.0 ng/L Critical troponin sent by a secure message and confirmed by [facility] 09/08/24 1202 Tech: caroline The Cronin high sensitivity Troponin-I results should be used in conjunction with other diagnostic information such as ECG, clinical observations and information, and patient symptoms to aid in the diagnosis of MT. Complete Blood Count no Diff Reviewed date:09/10/2024 02:50:48 PM Interpretation: Performing Lab:[facility], [address] [place] [address] Notes/Report: Unable to obtain x2 attempts Yarslen 09/09 0605 White Blood Count 15.1 4.8-10.8 X10*3/uL Red [...] Panel Reviewed date:09/10/2024 02:51:37 PM Interpretation: Performing Lab:[facility], [address] [place] [address] Notes/Report: Unable to obtain x2 attempts Yarslen [...] Diff Reviewed date:09/10/2024 02:53:03 PM Interpretation: Performing Lab:[facility], [address] [place] [address] Notes/Report: White Blood Count 14.0 4.8-10.8 X10*3/uL [...] Panel Reviewed date:09/10/2024 02:47:59 PM Interpretation: Performing Lab:[facility], [address] [place] [address] Notes/Report: Sodium 139 135-145 mmol/L Potassium 3.2 [...] Pathology Reviewed date:09/12/2024 01:54:32 PM Interpretation: Performing Lab:[facility], [address] [place] [address] Notes/Report: ---- Name: EddyMaria Ines Loli Age/Sex: 84/F : 1940 Unit#: [id number] Attend Dr: Kavon Burnham MD Re09/06/24 Status : ADM IN Location: [facility] 352-1 Disch: ---- SPEC : [id number] RECD : 09/11/24 STATUS: MARIALUISA COTTRELL NUM: [id number] BRET: 09/10/24-[address]: Isabela Lopez MD ENTERED: 09/11/24 SP TYPE: Surgical OTHR DR: Vito Joel MD [facility],Kavon DAWSON ORDERED: Gross Micro L5 Diagnosis [...] therefore it is difficult to orie nt. 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 CEDS Copies To: Vito Joel MD [facility] [address] [place] [address] Kavon Burnham MD [address] [place] [address] Isabela Lopez MD [facility] [address] [place] [address] ?[place] [address] [email or web address]@ [employer] ---- Signed (signature on file) Talia Ricardo MD 09/12/24 1304 ---- END OF REPORT XR CELY Reviewed date:09/10/2024 02:50:05 PM Interpretation: Performing Lab: Notes/Report: [place] [address] [place] [address] XRay Report Signed Patient: Maria Ines Kam MR#: [id number] 983 : 1940 Acct:[id number] Age/Sex: 84 / F ADM Date: 09/06/24 Loc: HO.S3 352-[address]: Pj Choudhary MD Ordering Physician: Jeff Mcnair MD Date of Service: 09/09/24 Procedure(s): XR CELY Accession Number(s): [id number] cc: Vito Joel MD; Jeff Mcnair MD [...] MD Signed By: <Electronically signed by Fito Glaindo MD in OV> 09/10/241107 DD/ 06 TD/TT: 09/10/241106 Hardware Trainer: [place] [address] XRay Report Signed Patient: Armin Kam MR#: [id number] 983 : 1940 Acct:[id number] Age/Sex: 84 / F ADM Date: 09/06/24 Loc: .S3 352-[address]: Pj Choudhary MD Ordering Physician: Jeff Mcnair MD Date of Service: 09/09/24 Procedure(s): XR CELY Accession Number(s): [id number] cc: Vito Joel MD; Jeff Mcnair MD [...] signed by Fito Galindo MD in OV> 09/10/241107 DD/ 06 TD/TT: 09/10/241106 Hardware Trainer: SKYLER TA Reviewed date:09/10/2024 02:50:29 PM Interpretation: Performing Lab: Notes/Report: [address] [address] XRay Report Signed Patient: Maria Ines Kam MR#: [id number] 983 : 1940 Acct:[id number] Age/Sex: 84 / F ADM Date: 09/06/24 Loc: HO.S3 352-[address]: Pj Choudhary MD Ordering Physician: Isabela Lopez MD Date of Service: 09/10/24 Procedure(s): XR KUB Accession Number(s): [id number] cc: Vito Joel MD; Isabela Lopez MD [...] 09/10/24 1249 DD/ 1248 TD/TT: 09/10/24 1248 Hardware Trainer: [address] [address] XRay Report Signed Patient: Armin Kam MR#: [id number] 983 : 1940 Acct:[id number] Age/Sex: 84 / F ADM Date: 09/06/24 Loc: HO.S3 352-[address]: Pj Choudhary MD Ordering Physician: Isabela Lopez MD Date of Service: 09/10/24 Procedure(s): XR KUB Accession Number(s): [id number] cc: Vito Joel MD; Isabela Lopez MD [...] 09/10/24 1249 DD/ 1248 TD/TT: 09/10/24 1248 Hardware Trainer: Complete Blood Count no Diff Reviewed date:09/11/2024 12:49:09 PM Interpretation: Performing Lab:[facility], [address] [place] [address] Notes/Report: White Blood Count 14.1 4.8-10.8 X10*3/uL [...] Panel Reviewed date:09/11/2024 12:46:20 PM Interpretation: Performing Lab:[facility], [address] [place] [address] Notes/Report: Sodium 143 135-145 mmol/L Potassium 3.0 [...] Electrolytes Reviewed date:09/12/2024 12:25:43 PM Interpretation: Performing Lab:[facility], [address] [place] [address] Notes/Report: Sodium 143 135-145 mmol/L Potassium 3.4 3.3-5.1 mmol/L Chloride 105 96-108 mmol/L Carbon Dioxide 30 22-29 mmol/L Anion Gap 11 12-20 Phosphorus Reviewed date:09/11/2024 12:46:12 PM Interpretation: Performing Lab:[facility], [address] [place] [address] Notes/Report: Phosphorus 2.8 2.7-4.5 mg/dL Magnesium Reviewed date:09/11/2024 12:46:04 PM Interpretation: Performing Lab:[facility], [address] [place] [address] Notes/Report: Magnesium 2.4 1.6-2.6 mg/dL Albumin Level Reviewed date:09/11/2024 12:45:57 PM Interpretation: Performing Lab:[facility], [address] [place] [address] Notes/Report: Albumin Level 2.8 3.5-5.0 g/dL Triglycerides Reviewed date:09/11/2024 12:45:50 PM Interpretation: Performing Lab:[facility], [address] [place] [address] Notes/Report: Triglycerides 117 <150 mg/dL Desirable Triglyceride: less than 150 mg/dL Borderline High Triglyceride 150-199 mg/dL High Triglyceride: 200-499 mg/dL Very High Triglyceride: greater than or equal to 5OO mg/dL Hold Green Gel Reviewed date:09/11/2024 06:02:58 PM Interpretation: Performing Lab:[facility], [address] [place] [address] Notes/Report: Hold Green Gel See Note Specimen held untested for 24 hours; Call to request Chemistry testing. Complete Blood Count no Diff Reviewed date:09/12/2024 01:55:00 PM Interpretation: Performing Lab:[facility], [address] [place] [address] Notes/Report: White Blood Count 10.9 4.8-10.8 X10*3/uL [...] Panel Reviewed date:09/12/2024 12:38:34 PM Interpretation: Performing Lab:[facility], [address] [place] [address] Notes/Report: Sodium 142 135-145 mmol/L Potassium 3.6 [...] Phosphorus Reviewed date:09/12/2024 12:20:25 PM Interpretation: Performing Lab:[facility], [address] [place] [address] Notes/Report: Phosphorus 1.6 2.7-4.5 mg/dL Magnesium Reviewed date:09/12/2024 12:19:46 PM Interpretation: Performing Lab:[facility], [address] [place] [address] Notes/Report: Magnesium 2.4 1.6-2.6 mg/dL Albumin Level Reviewed date:09/12/2024 12:15:39 PM Interpretation: Performing Lab:[facility], [address] [place] [address] Notes/Report: Albumin Level 2.6 3.5-5.0 g/dL Glucose, Whole Blood Reviewed date:09/12/2024 12:15:20 PM Interpretation: Performing Lab:[address] [address] Notes/Report: Glucose, Whole Blood 142 60-115 mg/dL METER # : [id number] Glucose, Whole Blood Reviewed date:09/13/2024 07:01:40 PM Interpretation: Performing Lab:[address] [address] Notes/Report: Glucose, Whole Blood 120 60-115 mg/dL METER # : [id number] Glucose, Whole Blood Reviewed date:09/13/2024 07:01:40 PM Interpretation: Performing Lab:[address] [address] Notes/Report: Glucose, Whole Blood 123 60-115 mg/dL METER # : [id number] Complete Blood Count no Diff Reviewed date:09/13/2024 07:01:40 PM Interpretation: Performing Lab:[address] [address] Notes/Report: White Blood Count 9.9 4.8-10.8 X10*3/uL [...] Panel Reviewed date:09/13/2024 07:01:40 PM Interpretation: Performing Lab:[address] [address] Notes/Report: Sodium 140 135-145 mmol/L Potassium 3.8 [...] Phosphorus Reviewed date:09/13/2024 07:01:40 PM Interpretation: Performing Lab:[facility], [address] [place] [address] Notes/Report: Phosphorus 3.3 2.7-4.5 mg/dL Magnesium Reviewed date:09/13/2024 07:01:40 PM Interpretation: Performing Lab:[facility], [address] [place] [address] Notes/Report: Magnesium 2.3 1.6-2.6 mg/dL Albumin Level Reviewed date:09/13/2024 07:01:40 PM Interpretation: Performing Lab:[facility], [address] [place] [address] Notes/Report: Albumin Level 2.5 3.5-5.0 g/dL Glucose, Whole Blood Reviewed date:09/13/2024 07:01:40 PM Interpretation: Performing Lab:[facility], [address] [place] [address] Notes/Report: Glucose, Whole Blood 147 60-115 mg/dL METER # : [id number] XR chest 1V Reviewed date:09/14/2024 12:39:53 PM Interpretation: Performing Lab: Notes/Report: [address] [address] XRay Report Signed Patient: Maria Ines Kam MR#: [id number] 983 : 1940 Acct:[id number] Age/Sex: 84 / F ADM Date: 09/06/24 Loc: HO.S3 352-[address]: Kavon Burnham MD Ordering Physician: Jesus Galaviz MD Date of Service: 09/13/24 Procedure(s): XR chest 1V Accession Number(s): [id number] cc: Vito Joel MD; Jesus Galaviz MD [...] in OV> 09/13/242327 DD/ 26 TD/TT: 09/13/242326 Hardware Trainer: [place] [address] XRay Report Signed Patient: Armin Kam MR#: [id number] 983 : 1940 Acct:[id number] Age/Sex: 84 / F ADM Date: 09/06/24 Loc: .S3 352-[address]: Xavier Burnham MD Ordering Physician: Jesus Galaviz MD Date of Service: 09/13/24 Procedure(s): XR jose st 1V Accession Number(s): [id number] cc: Vito Joel MD; Jesus Galaviz MD [...] in OV> 09/13/242327 DD/ 26 TD/TT: 09/13/242326 Hardware Trainer: Glucose, Whole Blood Reviewed date:09/13/2024 07:01:40 PM Interpretation: Performing Lab:[facility], [address] [place] [address] Notes/Report: Glucose, Whole Blood 142 60-115 mg/dL METER # : [id number] Glucose, Whole Blood Reviewed date:09/13/2024 07:01:40 PM Interpretation: Performing Lab:[facility], [address] [place] [address] Notes/Report: Glucose, Whole Blood 111 60-115 mg/dL METER # : [id number] Glucose, Whole Blood Reviewed date:09/14/2024 12:39:53 PM Interpretation: Performing Lab:[facility], [address] [place] [address] Notes/Report: Glucose, Whole Blood 123 60-115 mg/dL METER # : [id number] XR chest 1V Reviewed date:09/14/2024 12:39:53 PM Interpretation: Performing Lab: Notes/Report: [address] [place] [address] XRay Report Signed Patient: Maria Ines Kam MR#: [id number] 983 : 1940 Acct:[id number] Age/Sex: 84 / F ADM Date: 09/06/24 Loc: HO.S3 352-[address]: Kavon Burnham MD Ordering Physician: Jesus Galaviz MD Date of Service: 09/13/24 Procedure(s): XR chest 1V Accession Number(s): [id number] cc: Vito Joel MD; Jesus Galaviz MD [...] in OV> 09/13/242342 DD/ 40 TD/TT: 09/13/242340 Hardware Trainer: [address] [address] XRay Report Signed Patient: Armin Kam MR#: [id number] 983 : 1940 Acct:[id number] Age/Sex: 84 / F ADM Date: 09/06/24 Loc: HO.S3 352-[address]: Xavier Burnham MD Ordering Physician: Jesus Galaviz MD Date of Service: 09/13/24 Procedure(s): XR jose st 1V Accession Number(s): [id number] cc: Vito Joel MD; Jesus Galaviz MD [...] in OV> 09/13/242342 DD/ 40 TD/TT: 09/13/242340 Hardware Trainer: Complete Blood Count no Diff Reviewed date:09/14/2024 12:39:53 PM Interpretation: Performing Lab:[facility], [address] [place] [address] Notes/Report: White Blood Count 11.0 4.8-10.8 X10*3/uL [...] Panel Reviewed date:09/14/2024 12:39:53 PM Interpretation: Performing Lab:[address] [address] Notes/Report: Sodium 140 135-145 mmol/L Potassium 4.3 [...] Phosphorus Reviewed date:09/14/2024 12:39:53 PM Interpretation: Performing Lab:[address] [address] Notes/Report: Phosphorus 4.0 2.7-4.5 mg/dL Magnesium Reviewed date:09/14/2024 12:39:53 PM Interpretation: Performing Lab:[address] [place] [address] Notes/Report: Magnesium 2.3 1.6-2.6 mg/dL Albumin Level Reviewed date:09/14/2024 12:39:53 PM Interpretation: Performing Lab:[facility], [address] [place] [address] Notes/Report: Albumin Level 2.7 3.5-5.0 g/dL Glucose, Whole Blood Reviewed date:09/14/2024 12:39:53 PM Interpretation: Performing Lab:[facility], [address] [place] [address] Notes/Report: Glucose, Whole Blood 133 60-115 mg/dL METER # : [id number] Glucose, Whole Blood Reviewed date:09/14/2024 12:36:25 PM Interpretation: Performing Lab:[facility], [address] [place] [address] Notes/Report: Glucose, Whole Blood 117 60-115 mg/dL METER # : [id number] Glucose, Whole Blood Reviewed date:09/15/2024 09:58:24 AM Interpretation: Performing Lab:[facility], [address] [place] [address] Notes/Report: Glucose, Whole Blood 113 60-115 mg/dL METER # : [id number] Glucose, Whole Blood Reviewed date:09/15/2024 12:23:20 PM Interpretation: Performing Lab:[facility], [address] [place] [address] Notes/Report: Glucose, Whole Blood 126 60-115 mg/dL METER # : [id number] Comprehensive Met. Panel Reviewed date:09/15/2024 12:23:19 PM Interpretation: Performing Lab:[facility], [address] [place] [address] Notes/Report: Sodium 139 135-145 mmol/L Potassium 4.5 [...] Panel Reviewed date:09/15/2024 12:23:19 PM Interpretation: Performing Lab:[facility], [address] [place] [address] Notes/Report: Sodium 140 135-145 mmol/L Potassium 4.7 [...] Phosphorus Reviewed date:09/15/2024 12:23:19 PM Interpretation: Performing Lab:[facility], [address] [place] [address] Notes/Report: Phosphorus 4.0 2.7-4.5 mg/dL Magnesium Reviewed date:09/15/2024 12:23:19 PM Interpretation: Performing Lab:[facility], [address] [place] [address] Notes/Report: Magnesium 2.3 1.6-2.6 mg/dL Albumin Level Reviewed date:09/15/2024 12:23:20 PM Interpretation: Performing Lab:[facility], [address] [place] [address] Notes/Report: Albumin Level 2.8 3.5-5.0 g/dL Glucose, Whole Blood Reviewed date:09/15/2024 12:23:20 PM Interpretation: Performing Lab:[facility], [address] [place] [address] Notes/Report: Glucose, Whole Blood 136 60-115 mg/dL METER # : [id number] Glucose, Whole Blood Reviewed date:09/15/2024 12:44:30 PM Interpretation: Performing Lab:[facility], [address] [place] [address] Notes/Report: Glucose, Whole Blood 119 60-115 mg/dL METER # : [id number] Glucose, Whole Blood Reviewed date:09/17/2024 05:17:50 PM Interpretation: Performing Lab:[facility], [address] [place] [address] Notes/Report: Glucose, Whole Blood 93 60-115 mg/dL METER # : [id number] Glucose, Whole Blood Reviewed date:09/17/2024 05:17:50 PM Interpretation: Performing Lab:[facility], [address] [place] [address] Notes/Report: Glucose, Whole Blood 131 60-115 mg/dL METER # : [id number] Basic Metabolic Panel Reviewed date:09/17/2024 05:17:50 PM Interpretation: Performing Lab:[facility], [address] [place] [address] Notes/Report: Sodium 140 135-145 mmol/L Potassium 4.2 [...] Phosphorus Reviewed date:09/17/2024 05:17:50 PM Interpretation: Performing Lab:[address] [address] Notes/Report: Phosphorus 3.6 2.7-4.5 mg/dL Magnesium Reviewed date:09/17/2024 05:17:50 PM Interpretation: Performing Lab:[address] [address] Notes/Report: Magnesium 2.3 1.6-2.6 mg/dL Albumin Level Reviewed date:09/17/2024 05:17:50 PM Interpretation: Performing Lab:[facility], [address] [place] [address] Notes/Report: Albumin Level 2.9 3.5-5.0 g/dL Glucose, Whole Blood Reviewed date:09/17/2024 05:17:50 PM Interpretation: Performing Lab:[address] [address] Notes/Report: Glucose, Whole Blood 126 60-115 mg/dL METER # : [id number] Glucose, Whole Blood Reviewed date:09/17/2024 05:17:50 PM Interpretation: Performing Lab:[facility], [address] [place] [address] Notes/Report: Glucose, Whole Blood 133 60-115 mg/dL METER # : [id number] Glucose, Whole Blood Reviewed date:09/17/2024 05:17:50 PM Interpretation: Performing Lab:[facility], [address] [place] [address] Notes/Report: Glucose, Whole Blood 137 60-115 mg/dL METER # : [id number] Glucose, Whole Blood Reviewed date:09/17/2024 05:17:50 PM Interpretation: Performing Lab:[facility], [address] [place] [address] Notes/Report: Glucose, Whole Blood 131 60-115 mg/dL METER # : [id number] Basic Metabolic Panel Reviewed date:09/17/2024 05:17:50 PM Interpretation: Performing Lab:[address] [address] Notes/Report: Sodium 140 135-145 mmol/L Potassium 4.4 [...] Phosphorus Reviewed date:09/17/2024 05:17:50 PM Interpretation: Performing Lab:[facility], [address] [place] [address] Notes/Report: Phosphorus 3.6 2.7-4.5 mg/dL Magnesium Reviewed date:09/17/2024 05:17:50 PM Interpretation: Performing Lab:[address], [place] [address] Notes/Report: Magnesium 2.1 1.6-2.6 mg/dL Albumin Level Reviewed date:09/17/2024 05:17:50 PM Interpretation: Performing Lab:[facility], [address] [place] [address] Notes/Report: Albumin Level 2.9 3.5-5.0 g/dL Glucose, Whole Blood Reviewed date:09/17/2024 05:17:50 PM Interpretation: Performing Lab:[facility], [address] [place] [address] Notes/Report: Glucose, Whole Blood 126 60-115 mg/dL METER # : [id number] Glucose, Whole Blood Reviewed date:09/17/2024 05:17:50 PM Interpretation: Performing Lab:[facility], [address] [place] [address] Notes/Report: Glucose, Whole Blood 100 60-115 mg/dL METER # : [id number] Glucose, Whole Blood Reviewed date:09/18/2024 12:00:44 PM Interpretation: Performing Lab:[facility], [address] [place] [address] Notes/Report: Glucose, Whole Blood 111 60-115 mg/dL METER # : [id number] Glucose, Whole Blood Reviewed date:09/18/2024 12:00:44 PM Interpretation: Performing Lab:[facility], [address] [place] [address] Notes/Report: Glucose, Whole Blood 111 60-115 mg/dL METER # : [id number] Hold Lav - Possible Hematolo gy Reviewed date:09/18/2024 12:00:44 PM Interpretation: Performing Lab:[facility], [address] [place] [address] Notes/Report: Hold Lav - Possible Hematology SEE NOTE Specimen will be held untested for 8 hours. Call Hematology if testing is desired. Basic Metabolic Panel Reviewed date:09/18/2024 12:00:44 PM Interpretation: Performing Lab:[facility], [address] [place] [address] Notes/Report: Sodium 136 135-145 mmol/L Potassium 4.4 [...] Phosphorus Reviewed date:09/18/2024 12:00:44 PM Interpretation: Performing Lab:[address] [address] Notes/Report: Phosphorus 3.3 2.7-4.5 mg/dL Magnesium Reviewed date:09/18/2024 12:00:44 PM Interpretation: Performing Lab:[address] [address] Notes/Report: Magnesium 2.1 1.6-2.6 mg/dL Albumin Level Reviewed date:09/18/2024 12:00:05 PM Interpretation: Performing Lab:[address] [address] Notes/Report: Albumin Level 2.7 3.5-5.0 g/dL Triglycerides Reviewed date:09/18/2024 12:00:44 PM Interpretation: Performing Lab:[address] [address] Notes/Report: Triglycerides 241 <150 mg/dL Desirable Triglyceride: less than 150 mg/dL Borderline High Triglyceride 150-199 mg/dL High Triglyceride: 200-499 mg/dL Very High Triglyceride: greater than or equal to 5OO mg/dL Glucose, Whole Blood Reviewed date:09/18/2024 12:00:44 PM Interpretation: Performing Lab:[facility], [address] [place] [address] Notes/Report: Glucose, Whole Blood 137 60-115 mg/dL METER # : [id number] Glucose, Whole Blood Reviewed date:09/18/2024 12:08:03 PM Interpretation: Performing Lab:[facility], [address] [place] [address] Notes/Report: Glucose, Whole Blood 139 60-115 mg/dL METER # : [id number] Glucose, Whole Blood Reviewed date:09/19/2024 10:03:03 AM Interpretation: Performing Lab:[facility], [address] [place] [address] Notes/Report: Glucose, Whole Blood 120 60-115 mg/dL METER # : [id number] Glucose, Whole Blood Reviewed date:09/19/2024 10:03:03 AM Interpretation: Performing Lab:[facility], [address] [place] [address] Notes/Report: Glucose, Whole Blood 110 60-115 mg/dL METER # : [id number] Hold Lav - Possible Hematolo gy Reviewed date:09/19/2024 10:03:03 AM Interpretation: Performing Lab:[facility], [address] [place] [address] Notes/Report: Hold Lav - Possible Hematology SEE NOTE Specimen will be held untested for 8 hours. Call Hematology if testing is desired. Basic Metabolic Panel Reviewed date:09/19/2024 10:03:03 AM Interpretation: Performing Lab:[facility], [address] [place] [address] Notes/Report: Sodium 133 135-145 mmol/L Potassium 4.1 [...] Phosphorus Reviewed date:09/19/2024 10:03:03 AM Interpretation: Performing Lab:[facility], [address] [place] [address] Notes/Report: Phosphorus 3.1 2.7-4.5 mg/dL Magnesium Reviewed date:09/19/2024 10:03:03 AM Interpretation: Performing Lab:[facility], [address] [place] [address] Notes/Report: Magnesium 1.9 1.6-2.6 mg/dL Albumin Level Reviewed date:09/19/2024 10:03:03 AM Interpretation: Performing Lab:[facility], [address] [place] [address] Notes/Report: Albumin Level 2.6 3.5-5.0 g/dL Glucose, Whole Blood Reviewed date:09/19/2024 10:03:03 AM Interpretation: Performing Lab:[facility], [address] [place] [address] Notes/Report: Glucose, Whole Blood 126 60-115 mg/dL METER # : [id number] Glucose, Whole Blood Reviewed date:09/19/2024 12:02:47 PM Interpretation: Performing Lab:[facility], [address] [place] [address] Notes/Report: Glucose, Whole Blood 138 60-115 mg/dL METER # : [id number] Glucose, Whole Blood Reviewed date:09/20/2024 03:15:40 PM Interpretation: Performing Lab:[facility], [address] [place] [address] Notes/Report: Glucose, Whole Blood 107 60-115 mg/dL METER # : [id number] Glucose, Whole Blood Reviewed date:09/20/2024 03:16:10 PM Interpretation: Performing Lab:[facility], [address] [place] [address] Notes/Report: Glucose, Whole Blood 130 60-115 mg/dL METER # : [id number] Basic Metabolic Panel Reviewed date:09/20/2024 03:16:10 PM Interpretation: Performing Lab:[facility], [address] [place] [address] Notes/Report: Sodium 134 135-145 mmol/L Potassium 3.8 [...] Phosphorus Reviewed date:09/20/2024 03:13:29 PM Interpretation: Performing Lab:[facility], [address] [place] [address] Notes/Report: Phosphorus 3.1 2.7-4.5 mg/dL Magnesium Reviewed date:09/20/2024 03:13:21 PM Interpretation: Performing Lab:[facility], [address] [place] [address] Notes/Report: Magnesium 1.9 1.6-2.6 mg/dL Albumin Level Reviewed date:09/20/2024 03:13:14 PM Interpretation: Performing Lab:[facility], [address] [place] [address] Notes/Report: Albumin Level 2.8 3.5-5.0 g/dL Glucose, Whole Blood Reviewed date:09/20/2024 03:16:10 PM Interpretation: Performing Lab:[facility], [address] [place] [address] Notes/Report: Glucose, Whole Blood 93 60-115 mg/dL METER # : [id number] CDiff Gene PCR Reviewed date:09/20/2024 03:13:07 PM Interpretation: Performing Lab:[facility], [address] [place] [address] Notes/Report: CDiff Gene PCR NEGATIVE Negative If C. difficile strongly suspected despite one negative test, a second test may be sent vs. empiric treatment for C. difficile infection. Glucose, Whole Blood Reviewed date:09/20/2024 03:16:10 PM Interpretation: Performing Lab:[facility], [address] [place] [address] Notes/Report: Glucose, Whole Blood 96 60-115 mg/dL METER # : [id number] Glucose, Whole Blood Reviewed date:09/20/2024 03:16:09 PM Interpretation: Performing Lab:[facility], [address] [place] [address] Notes/Report: Glucose, Whole Blood 105 60-115 mg/dL METER # : [id number] US renal BI Reviewed date:11/06/2024 04:14:12 PM Interpretation: Performing Lab: Notes/Report: [facility] [address] [place] [address] [place] [address] Ultrasound Report Signed Patient: Maria Ines Kam MR#: [id number] 983 : 1940 Acct:[id number] Age/Sex: 84 / F ADM Date: 11/06/24 Loc: HO.HMGCX Attending Dr: Cyndy CHO Ordering Physician: Cyndy Washington Date of Service: 11/06/24 Procedure(s): US renal BI Accession Number(s): [id number] cc: Vito Joel MD; Cyndy Washington CLINICAL HISTORY: R31.29 - Other microscopic hematuria US Renal Comparison: None Findings: Right kidney normal size and echotexture, 11.4 cm length. Benign 10 mm cyst noted. Left kidney normal size and echotexture, 11.0 cm length. Benign 6 mm cyst noted. No hydronephrosis of either kidney. Normal color Doppler IMPRESSION: 1. Normal kidneys. This document has been electronically signed by: Fito Galindo MD on 11/06/2024 13:09:05 Dictated By: Fito Galindo MD Signed By: <Electronically signed by Fito Galindo MD in OV> 11/06/24 1310 DD/ 130 TD/TT: 11/06/24 130 Hardware Trainer: [facility] [address] [place] [address] [place] [address] Ultrasound Report Signed Patient: Armin Kam MR#: [id number] 983 : 1940 Acct:[id number] Age/Sex: 84 / F ADM Date: 11/06/24 [facility]: Cyndy TOMLINPShannon Ordering Physician: Cyndy Washington Date of Service: 11/06/24 Procedure(s): US summer Alfaro Accession Number(s): [id number] cc: Vito Joel MD; Cyndy Washington CLINICAL HISTORY: R3 1.29 - Other microscopic hematuria US Renal Comparison: None Findings: Right kidney normal size and echotexture, 11.4 cm length. Benign 10 mm cyst noted. Left kidney normal s ize and echotexture, 11.0 cm length. Benign 6 mm cyst noted. No hydronephrosis of either kidney. Normal color Doppler IMPRESSION: 1. Normal kidneys. This document has be en electronically signed by: Fito Galindo MD on 11/06/2024 13:09:05 Dictated By: Fito Galindo MD Signed By: <Electronically signed by Fito Galindo MD in OV> 11/06/24 1310 DD/ 130 TD/TT: 11/06/241308 Hardware Trainer: Reason For Referral No Information Medications Medication SIG (Take, Route, Frequency, Duration) Notes Start Date End Date Status Aspir-81 81 MG 1 tablet Orally Once a day for 30 day(s) Active Molnupiravir 200 MG 4 capsules Orally ev dara 12 hrs for 5 day(s) 03/23/2024 Active carBAMazepine 200 MG TAKE 1 TABLET TWICE A DAY Orally Twice a day Active amLODIPine Besylate 10 MG 1 tablet Orall y Once a day for 90 days 10/19/2024 Active Nystatin-Triamcinolone 596954-3.1 UNIT/GM 1 application to affected area Externally Twice a day for 30 days 09/21/2017 Not-Taking Furosemide 20 MG 1 tablet Orally Once a day for 30 days 12/28/2024 Active Atorvastatin Calcium 80 MG TAKE 1 TABLET DAILY for 90 Active Immunizations Vaccine Route Administration Date Status [...] Administered pt was given the vaccine at [facility] in [place]. 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) Active confirmed Problem 375897144 History of endom etrial cancer (Z85.42) Active confirmed Problem 260086415 Pure hypercholesterolemia (E78.00) Active confirmed Problem 353324480 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) Active confirmed Problem Intermittent spinal claudication (256998002) Intermittent spinal claudication (G95.19) Active confirmed Vital Signs Blood pressure diastolic 56 mm Hg 12/28/2024 Height 65.25 in 12/28/2024 Blood pressure systolic 142 mm Hg 12/28/2024 Weight 175 lbs 12/28/2024 BMI 28.9 kg/m2 12/28/2024 Encounters Encounter Location Date Provider Diagnosis Vito Joel MD [address] [place] [address] [id number] 07/06/2024 Vito Joel Blood tests for rout ine general physical examination Z00.00 ; Essential hypertension I10 ; Prediabetes R73.09 and Pure hypercholesterolemia E78.00 Viot Joel MD [address] [place] [address] [id number] 02/09/2025 Vito Joel Prediabetes R73.09 a nd Pure hypercholesterolemia E78.00 Vito Joel MD [address] [place] [address] [id number] 03/23/2024 Vito Joel Acute COVID-19 U07.1 Vito Joel MD [address] [place] [address] [id number] 07/13/2024 Vito Joel Essential hypertensi on I10 ; Annual physical exam Z00.00 ; Pure hypercholesterolemia E78.00 ; 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 ; Diabetic autonomic neuropathy associated with type 2 diabetes mellitus E11.43 ; Colon cancer screening Z12.11 and Depression screening Z13.31 Vito Joel MD [address] [place] [address] [id number] 10/30/2024 Vito Joel Small bowel obstruct ion K56.609 and Essential hypertension I10 Vito Joel MD [address] [place] [address] [id number] 11/28/2024 Vito Joel Essential hypertensi on I10 and Leg edema R60.0 Vito Joel MD [address] [place] [address] [id number] 12/28/2024 Vito Joel Prediabetes R73.09 a nd Edema leg R60.0 Vito Joel MD [address] [place] [address] [id number] 03/23/2024 Vito Joel Acute COVID-19 U07.1 Vito Joel MD [address] [place] [address] [id number] 04/24/2024 Vito Joel MD [address] [place] [address] [id number] 06/13/2024 Vito Joel Essential hypertensi on I10 Vito Joel MD [address] [place] [address] [id number] 07/11/2024 Vito Joel MD [address] [place] [address] [id number] 09/07/2024 Vito Joel MD [address] [place] [address] [id number] 09/20/2024 Vito Joel MD [address] [place] [address] [id number] 10/06/2024 Vito Joel MD [address] [place], [place] [id number] 10/19/2024 Vito Joel MD [address] [facility] [address] [place] [address] [id number] 11/10/2024 Vito Joel Essential hypertensi on I10 Assessments Encounter Date Diagnosis (ICD Code) Assessment Notes Treatment Notes Treatment Clinical Notes Section Notes 07/06/2024 [address] tests [address] ine general physical examination (ICD-10 - Z00.00) 07/06/2024 Essential hypertensi on (ICD-10 - I10) 02/09/2025 Prediabetes (ICD-10 - R73.09) 03/23/2024 Acute COVID-19 (ICD- 10 - U07.1) [...] lab data, studies and counseling the patient. 11/28/2024 Essential hypertensi on (ICD-10 - I10) doing well on meds 11/28/2024 Leg edema (ICD-10 - R60.0) no longer with any edema 12/28/2024 Prediabetes (ICD-10 - R73.09) doing well, no need for medication at this time 12/28/2024 Edema leg (ICD-10 - R60.0) patient verbalized understanding of medication and directions for use 03/23/2024 Acute COVID-19 (ICD- 10 - U07.1) 06/13/2024 Essential hypertensi on (ICD-10 - I10) 11/10/2024 Essential hypertensi on (ICD-10 - I10) 07/06/2024 Prediabetes (ICD-10 - R73.09) 02/09/2025 Pure hypercholesterolemia (ICD-10 - E78.00) 07/13/2024 Pure hypercholesterolemia (ICD-10 - E78.00) stable, [...] Electrocardiogram (EKG) 11/25/2012 CARDIOVASCULAR STRESS TEST 11/12/2022 Liver Panel 02/09/2025 Glucose Fasting 02/09/2025 Lipid Panel with Reflex 02/09/2025 Hemoglobin A1c 02/09/2025 Next Appt Details Provider Name:Vito arizar, 02/16/2025 10:30:00 AM, [address] [place] [address], [address], [phone], Provider Name:Vito arizar, 07/10/2025 08:00:00 AM, [address] [place] [address], [address], [phone], Provider Name:Vito Johnson ier, 07/17/2025 01:00:00 PM, [address] [place] [address], [address], [phone], Insurance Providers Payer Name Payer Address Payer Phone Subscriber Number Group Number Insured Name Patient Relationship to Insured Coverage Start Date Coverage End Date [facility] [address] [place] [phone] [id number] Maria Ines Peacock Self - patient is the insured Medical (General) History Medical History History ICD Code hysterectomy (2002) and oopherectomy endometrial cancer - 200211/24/2012 - refuses Colonsco py 2013; REFUSED COLONOSCOPY - DON'T ASK AGAIN 08/17/16 Prediabetes R73.09 Prediabetes undefined Surgical History Surgery Date(Month/Year) left hip replacement 07/2010 right hip replacement 07/1994
--- OUTSIDE RECORDS SUMMARY | 2025-02-09 11:29 | XMS_ITS | Patient Health Record ---
Author Organization [facility] Address [address] [place] [address] Care Team Providers Care Hair Colorist Name Role Phone Vito Joel MD Primary Care Provider Irais Mcghee Unavailable [phone] Allergies No Known Allergies Reason For Referral No Information Medications Medication SIG (Take, Route, Frequency, Duration) Notes Start Date End Date Status carBAMazepine 200 MG 1 tablet Orally Twi ce a day Active Night Splint AFO - L1930 1 wear at rest; Duration: 30 days Not-Taking Lipitor 80 MG 1 tablet Orally Once a day Not-Taking Prinivil 10 MG 1 tablet Orally Once a day; Duration: 30 day(s) Not-Taking TEGretol 100 MG/5ML 5 ml Orally Three times a day; Duration: 30 day(s) Not-Taking Atorvastatin Calcium 80 MG Oral; Duratio n: 90 Days Active Aspirin 75 MG 1 [...] Status W/U Status Risk Notes Problem Tinea unguium (122186108) Tinea unguium (B35.1) Active confirmed Vital Signs Blood pressure diastolic 70 mm Hg 11/06/2024 Height 5 ft 5 in in 11/06/2024 Blood pressure systolic 120 mm Hg 11/06/2024 Weight 176 lbs 11/06/2024 BMI 29.28 kg/m2 11/06/2024 Procedures Procedure Date Ordered Date Performed Result Body Sit e 33278-FTELYFY NAIL, 6 OR MORE 03/13/2024 N/A 51041-KDPXUXF NAIL, 6 OR MORE 07/13/2024 N/A 43890 I&D ABSCESS- SIMPLE,SINGLE 07/13/2024 N/A 26220-[id number] NAIL, 6 OR MORE 11/06/2024 N/A Encounters Encounter Location Date Provider Diagnosis [address] [phone] 03/13/2024 Irais Black Pain in right foot [...] M79.674 and Pain in left toe(s) M79.[address] [address] 07/13/2024 Irais Black Pain in right foot [...] M79.675 and Abscess of toe, left L02.[address] [address] 11/06/2024 Irais Black Tinea unguium B35.1 ; Pain in right toe(s) M79.674 and Pain in left toe(s) M79.675 Assessments Encounter Date Diagnosis (ICD Code) Assessment Notes Treatment Notes Treatment Clinical Notes Section Notes 03/13/2024 Pain in right foot (ICD-10 - M79.671) 07/13/2024 Pain in right foot (ICD-10 - M79.671) 03/13/2024 Plantar fasciitis, bilateral (ICD-10 - M72.2) 07/13/2024 Plantar fasciitis, bilateral (ICD-10 - M72.2) 11/06/2024 Tinea unguium (ICD-10 - B35.1) 11/06/2024 Pain in right toe(s) (ICD-10 - M79.674) 11/06/2024 Pain in left toe(s) (ICD-10 - M79.675) 07/13/2024 Calcaneal spur, right foot (ICD-10 - M77.31) 03/13/2024 Calcaneal spur, right foot (ICD-10 - [...] B35.1) 03/13/2024 Tinea unguium (ICD-10 - B35.1) 03/13/2024 Pain in right toe(s) (ICD-10 - M79.674) 07/13/2024 Pain in right toe(s) (ICD-10 - M79.674) 07/13/2024 Pain in left toe(s) (ICD-10 - M79.675) 03/13/2024 Pain in left toe(s) (ICD-10 - M79.675) 07/13/2024 Abscess of toe, left (ICD-10 - L02.612) Patient Educated with: WOUND CARE INSTRUCTIONS.p df (WOUND CARE INSTRUCTIONS.p df) Plan Of Treatment Pending Test Test Name Order Date 95403-[id number] NAIL, 6 OR MORE 11/08/2023 27680-FCILSBT NAIL, 6 OR MORE 03/13/2024 52321-[id number] NAIL, 6 OR MORE 07/13/2024 86348-BNBCKZY NAIL, OR MORE 11/06/2024 93412 I&D ABSCESS- SIMPLE,SINGLE 025 Next Appt Details Provider Name:Irais Prieto , 03/08/2025 10:00:00 AM, [address] [facility], [place], [address], Insurance Providers Payer Name Payer Address Payer Phone Subscriber Number Group Number Insured Name Patient Relationship to Insured Coverage Start Date Coverage End Date [facility]) [address] [place] [id number] [phone] [id number] [facility] Maria Ines Kam Self - patient is the insured Medical (General) History Medical History History ICD Code Cancer Seizures High blood pressure 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
[2025-02-09 12:28] LABS: Hemoglobin A1C 138.9229 umol/L; Total Hemoglobin (HGBA1C) 3549.9720 umol/L
[2025-02-09 12:36] LABS: Alanine Aminotransferase 18 U/L (0-31); Albumin Level 4.1 g/dL (3.5-5.0); Alkaline Phosphatase 137 U/L (39-117); Aspartate Amino Transferase 32 U/L (5-31); Cholesterol 181 mg/dL (<200); HDL Cholesterol 50 mg/dL (>40); Total Protein 6.6 g/dL (6.5-8.0); Triglycerides 97 mg/dL (<150)
[2025-02-09 14:03] LABS: Reflex LDLD? No
== END 2025-02-09 11:27 | disposition home or self-care (01) ==
LOC: HO.LNP 11:26
PROVIDERS: Visit Provider Internal Medicine
DX: R73.09 Other abnormal glucose (principal); E78.00 Pure hypercholesterolemia, unspecified
CPT/HCPCS: 80061; 80076; 82947; 83036

== ENCOUNTER 2025-05-28 11:42 | Outpatient (REF) | payer OTHER, SELFPAY ==
--- NOTE | ~2025-05-28 | XR_ITS ---
EXAMINATION: XR HAND 3 OR MORE VIEWS RIGHT HISTORY: M79.641 - Pain in right hand COMPARISON: Comparison is made with the outside prior examination dated 05/18/2025. FINDINGS: Three views of the right hand are submitted. The bones are osteopenic. Again seen is a comminuted fracture of the base of the 2nd metacarpal as well as a fracture of the base of the 3rd metacarpal. 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 There is dorsal soft tissue swelling. XR/XR hand RT min 3V IMPRESSION: Fractures of the bases of the 2nd and 3rd metacarpals without significant change. Degenerative changes as described. Electronically signed by: Usman Rivas MD 05/28/2025 02:09 PM [facility]
== END 2025-05-28 11:43 | disposition home or self-care (01) ==
LOC: HO.HOSX 11:42
DX: S62.310A Displaced fracture of base of second metacarpal bone, right hand, initial encounter for closed fracture (principal); S62.312A Displaced fracture of base of third metacarpal bone, right hand, initial encounter for closed fracture; X58.XXXA Exposure to other specified factors, initial encounter
CPT/HCPCS: 26600; 73130

== ENCOUNTER 2025-05-28 13:10 | Outpatient (AMB) | payer OTHER, SELFPAY ==
[2025-05-28 13:16] VITALS: BMI 28.8
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
--- OUTSIDE RECORDS SUMMARY | 2025-05-28 17:47 | XMS_ITS | Data Portability ---
Author Organization [facility], Main Office Address [address] [facility] [place] [address] Care Team Providers Care Account Services Representative Name Role Phone [facility] [place] OTHER Assessment Encounter Date Assessment Date Assessment LastModified by Organization Details LastModified Time 10/02/2024 10/02/2024 45 minutes spent on coordination of discharge. Not available 10/02/2024 09:59:54 Plan of Treatment [...] Organization Details Recorded Time Small bowel obstruction [id number] Active 2024 s/p exp. lap. SWETHA HINOJOSA NP [address] , [address], [place], [address], [facility] stiQRd 5 10:45:26 Inflammator y bowel disease 07725533 Active 2024 SWETHA HINOJOSA NP [address] , [address], [place], [address], [facility] 5 10:45:49 Imaging of liver abnormal 041924273 Active 2024 SWETHA HINOJOSA NP [address] , [address], [place], [address], [facility] stiQRd 5 10:46:01 Asthenia 83640153 Active 2024 SWETHA HINOJOSA NP [address] , [address], [place], [address], [facility] [employer] 5 10:46:07 Acute nontraumati c kidney injury 4831374177533 03 Active 2024 SWETHA HINOJOSA NP [address], [address], [place], [address], [facility] 5 10:46:20 Hypertensiv e disorder 16770453 Active 2024 SWETHA HINOJOSA NP [address], [address], [place], [address], [facility] 5 10:46:49 Hyperlipide ray 18303624 Active 2024 SWETHA HINOJOSA NP [address], [address], [place], [address], [facility] 5 10:46:57 Peripheral nerve disease 438018857 Active 2024 SWETHA HINOJOSA NP [address] [facility], [address], [place], [address], [facility] 5 10:47:10 Seizure disorder 372650149 Active 2024 SWETHA HINOJOSA NP [address] [facility], [address], [place], [address], [facility] 5 10:47:21 Chronic low back pain 444295723 Active 2024 SWETHA HINOJOSA NP [address] [facility], [address], [place], [address], [facility] 5 10:47:33 Endometrial carcinoma 099930025 Active 2024 h/o, s/p YVONNE BSO SWETHA HINOJOSA NP [address], [address], [place], [address], [facility] 5 10:48:17 Problem Notes None recorded. Medical Equipment None Reported. Allergies No known drug allergies Medications Not known to be on any medication Vitals Date Recorded Heart rate Respiratory rate Body temperature Oxygen saturation Systolic And Diastolic Provider Name and Address Organization Details Last Updated DateTime 5 75 /min 16 /min 97.6 [degF] 96 % 119/56 mm[Hg] SWETHA HINOJOSA NP [address] [facility], [address], [place], [address], [facility] 5 13:03:28 Date Recorded Heart rate Respiratory rate Body temperature Oxygen saturation Systolic And Diastolic Provider Name and Address Organization Details Last Updated DateTime 5 80 /min 18 /min 97.4 [degF] 97 % 152/75 mm[Hg] SWETHA HINOJOSA NP [address] [facility], [address], [place], [address], [facility] 5 10:32:33 Date Recorded Heart rate Respiratory rate Oxygen saturation Body temperature Systolic And Diastolic Provider Name and Address Organization Details Last Updated DateTime 5 81 /min 16 /min 96 % 97.5 [degF] 135/62 mm[Hg] SWETHA HINJOOSA NP [address] [facility], [address], [place], [address], [facility] 5 09:42:44 Social History Question Answer Notes LastModified by Organizat ion Details LastModified Time Tobacco Smoking Status Never Smoker SWETHA HINOJOSA NP [address] [facility], [address], [place], [address], [facility] 09/22/2024 09:43:54 What Is Your Code Status? DNR/DNI No Artificial Hydration [email or web address] Information not available 09/22/2024 Where Do You Live? [address] [facility] [email or web address] Information not available 09/22/2024 What Was The Date Of Your Most Recent Tobacco Screening? 09/22/2024 [email or web address] Information not available 09/22/2024 Do You Have An Out Of Hospital DNR? Yes [email or web address] Information not available 09/22/2024 Have You Ever Been Counseled For Unhealthy Alcohol Use? No Information not available 09/22/2024 Has Tobacco Cessation Counseling Been Provided? No [email or web address] Information not available 09/22/2024 Sex: Unknown Functional Status Question Answer Note LastModified by Organizat ion Details LastModified Time Do you use any illicit or recreational drugs? No [email or web address] Information not available 09/22/2024 Do you or have you ever used any other forms of tobacco or nicotine? No [email or web address] Information not available 09/22/2024 What is your level of alcohol consumption? Occasional [email or web address] Information not available 09/22/2024 Mental Status None recorded. Family History Relationship Description Onset Age of this Age Resolved Age Notes LastModified by Organization Details LastModified Time Father No current problems or disability [email or web address] Not available 09/22 09:53:24 Mother No current problems or disability [email or web address] Not available 09/22 09:53:24 Notes:N/C Medical History No medical history recorded. Gynecological HistoryNo gynecological history recorded. Obstetrics History GPAL:G 0 P 0 0 0 0 Immunizations Vaccine Type Date Status Note Provider Nam e and Address Organization Details Recorded Time Respiratory syncytial virus (RSV) MAB, unspecified 4 completed Elmer Ruiz-Akbar [facility] 09/22/2024 13:20:54 Td(adult) unspecified formulation 8 completed Elmer Ruiz-Akbar [facility] 09/22/2024 13:21:05 pneumococcal polysaccharide PPV23 9 completed Elmer Ruiz-Akbar [facility] 09/22/2024 13:21:18 influenza, unspecified formulation 0 completed Elmer Joseph-Akbar [facility] 09/22/2024 13:21:45 influenza, unspecified formulation 1 completed Elmer Joseph-Akbar [facility] 09/22/2024 13:21:56 influenza, unspecified formulation 2 completed Elmer Ruiz-Akbar [facility] 09/22/2024 13:22:02 influenza, unspecified formulation 3 completed [facility] 13:22:07 SARS-COV-2 (COVID-19) vaccine, UNSPECIFIED 1 completed [facility] 13:22:22 SARS-COV-2 (COVID-19) vaccine, UNSPECIFIED 1 completed [facility] 09/[facility]/2024 13:22:27 SARS-COV-2 (COVID-19) vaccine, UNSPECIFIED 1 completed Elmer Pedraza [facility], [facility] 09/22/2024 13:22:31 SARS-COV-2 (COVID-19) vaccine, UNSPECIFIED 2 completed Elmer Pedraza null, [facility] 09/22/2024 13:22:37 SARS-COV-2 (COVID-19) vaccine, UNSPECIFIED 2 completed Elmer Pedraza [facility], [facility] 09/22/2024 13:22:42 SARS-COV-2 (COVID-19) vaccine, UNSPECIFIED 3 completed Elmer Pedraza [facility] 09/22/2024 13:22:47 SARS-COV-2 (COVID-19) vaccine, UNSPECIFIED 3 completed Elmer TorresAkbar [facility] 09/22/2024 13:22:53 zoster, unspecified formulation 8 completed Elmer Pedraza [facility], [facility] 09/22/2024 13:23:07 zoster, unspecified formulation 8 completed [facility] Joseph-Akbar [facility] 09/22/2024 13:23:12 Past Encounters Encounter ID Performer Location Encounter Start Date Encounter Closed Date Diagnosis/Indication Diagnosis SNOMED-CT Code Diagnosis ICD10 Code Diagnosis IMO Codes Diagnosis Note [id number] SWETHA HINOJOSA NP [place] [address] [place] [address] 09/22/2024 08:39:18 09/25/2024 16:16:37 Asthenia [id number] R53.1 Deconditio ross due to acute illness and hospitaliz ationPT OT eval and tx.Goal is to return home, monitor for increased needs/serv ices Small faby l obstruction 090472803 K56.609 Present[facility] [place] [facility] with N/V/D and abd. painFailed conservati ve treatmentU nderwent exp. lap, willam. wellPost op complicati on of prolonged ileus, required PPNNow tolerating regular dietContin ue to monitor po, bowel status closelyTre nd labs, VS, pain, s/s blockage, incisionFo llow up with surgery as sched. Inflammato ry bowel disease 94294266 K52.9 Noted on abd. CTTreated with rocephin and flagylMoni tor GI sx, VS, labsFollow up with GI outpt. Imaging of liver abnormal 319379286 R93.2 Noted on abd. CTMonitor GI statusRefe r to GI as outpt. Acute nont raumatic kidney injury [id number] 01028 N17.9 Stopped HCTZ/HIPOLITO IResponded well to IVFMonitor labsEncour age po fluidsAvoi d nephrotoxi cs Hypertensive disorder 38 253245 I10 HCTZ/ACEI stopped due to AKINow on norvasc 10 mg qd as well as lasix 20 mg qdMonitor VS, labs, adjust prn Hyperlipidemia 17407241 E78.5 Continue atorvastat in 80 mg qd Peripheral nerve disease 683194307 G64 APAP prn monitor Seizure disorder 2329619 02 G40.909 Continue carbamazep selma 200 mg bidMonitor sz. activity Chronic low back pain 27 5628159 M54.50 APAP prn Insomnia 275958685 G47.0 9 ?Trazodone 50 mg qd prn x 14 d on d/c med listWill continue for now, monitor use and effect. [id number] SWETHA HINOJOSA NP [place] [address] [facility] [place] [address] 09/25/2024 09:05:12 09/27/2024 13:52:55 Asthenia [id number] R53.1 Deconditio ross due to acute illness and hospitaliz ationPT OT eval and tx.Goal is to return home, monitor for increased needs/serv ices Small faby l obstruction 816975193 K56.609 Presented [place] [facility] with N/V/D and abd. painFailed conservati ve treatmentU nderwent exp. lap, willam. wellPost op complicati on of prolonged ileus, required PPN Now tolerating regular diet, good appetiteMo ving bowels, monitor closelyTre nd labs, VS, pain, s/s blockage, incisionFo llow up with surgery as sched.CBC, BMP in am Inflammato ry bowel disease 98802442 K52.9 Noted on abd. CTTreated with rocephin and flagylMoni tor GI sx, VS, labsFollow up with GI outpt. Imaging of liver abnormal 246233193 R93.2 Noted on abd. CTMonitor GI statusRefe r to GI as outpt. Acute nont raumatic kidney injury 1157871983 55976 N17.9 Stopped HCTZ/HIPOLITO IResponded well to IVFMonitor labs - BMP in amEncourag e po fluidsAvoi d nephrotoxi cs Hypertensive disorder 38 112054 I10 VSSHCTZ/AC EI stopped due to AKINow on norvasc 10 mg qd as well as lasix 20 mg qdMonitor VS, labs, adjust prnBMP in am Hyperlipidemia 13882712 E78.5 Continue atorvastat in 80 mg qd Peripheral nerve disease 660211048 G64 APAP prn monitor Seizure disorder 3260084 02 G40.909 Continue carbamazep selma 200 mg bidMonitor sz. activity Chronic low back pain 27 1452605 M54.50 APAP prn Insomnia 293817414 G47.0 9 ?Trazodone 50 mg qd prn x 14 d on d/c med listWill continue for now, monitor use and effect. [id number] SWETHA HINOJOSA NP [place] [address] [place] [address] 09/27/2024 10:30:52 10/02/2024 16:03:03 Asthenia [id number] R53.1 Deconditio ross due to acute illness and hospitaliz ationPT OT eval and tx., making gains, hopeful to return home for increased needs/serv ices Small faby l obstruction 970114331 K56.609 Presented [place] [facility] with N/V/D and abd. painFailed conservati ve treatmentU nderwent exp. lap, willam. wellPost op complicati on of prolonged ileus, required PPN Now tolerating regular diet, good appetiteMo ving bowels, monitor closelyTre nd labs, VS, pain, s/s blockage, incisionFo llow up with surgery as sched. 10/12 Inflammato ry bowel disease 26122672 K52.9 Noted on abd. CTTreated with rocephin and flagylMoni tor GI sx, VS, labsFollow up with GI outpt. Imaging of liver abnormal 052139889 R93.2 Noted on abd. CTMonitor GI statusRefe r to GI as outpt. Acute nont raumatic kidney injury 1597533137 22707 N17.9 Stopped HCTZ/HIPOLITO IResponded well to IVFLabs currently stable, but will be increasing lasix due to increased peripheral edemaMaint ain po fluidsAvoi d nephrotoxi csBMP wednesday Hypertensive disorder 38 574232 I10 VSSHCTZ/AC EI stopped due to AKINow on norvasc 10 mg qd as well as lasix 20 mg qd (increasin g to 40 mg qd due to worsening edema) tor VS, labs, adjust prnBMP Wednesday Hyperlipidemia 17079276 E78.5 Continue atorvastat in 80 mg qd Peripheral nerve disease 704112801 G64 APAP prn monitor Seizure disorder 2931841 02 G40.909 Continue carbamazep selma 200 mg bidMonitor sz. activity Chronic low back pain 27 7854993 M54.50 APAP prn Insomnia 281472803 G47.0 9 ?Trazodone 50 mg qd prn x 14 d on d/c med listWill continue for now, monitor use and effect. Edema of l ower extremity 925721237 R60.0 Newer, increasing , no pain.Spend ing more time OOBMeds reviewed, is on lasix 20 mg qd as well as norvasc 10 mg qd (both new, was on HCTZ/ACEI prior to hosp. but stopped due to AGUILAR) Plan -Encourage :Elevation Protein intakeActi vityAdd tubigrip toes -> knees qam, off qpmIncreas e lasix to 40 mg qdBMP wednesday (as planning Wed. d/c) [id number] Yusuf Awad MD [place] [address] [place], [place] [address] 09/30/2024 09:00:49 10/02/2024 16:09:53 Asthenia [id number] R53.1 PT OT Eval and treatmonit or fall risk and need for increased support in community Edema of l ower extremity 380096881 R60.0 now on lasix 20 mg qdmonitor sx control and renal function with recent ARFmay decreased or DC norvasc if not improved Small faby l obstruction 178626678 K56.690 see HPIs/p exp lap complicate d by ileusfollo w surgery recs and update for concernsmo nitor out put and need to adjust diet Inflammato ry bowel disease 24195069 K51.818 carrying dx of IBScovered with rocephin and flagyl in hospitalco ordinate with GImonitor sx Imaging of liver abnormal 682723741 R93.2 concern for cirrhosisf /u with GI in place Acute nont raumatic kidney injury 2660160520 81251 N17.8 HCTZ and HIPOLITO-I d/c'edimpr milana with IVFmonitor renal function now on lasix Hypertensive disorder 38 340837 I10 see abovemonit or bp and need to titrate now on norvasc and lasix Peripheral nerve disease 014889462 G64 carrying dx added to PMHmonitor need for gabapentin Seizure disorder 6921685 02 G40.89 carbamazep ine 200 mg bidmonitor for seizure activity Chronic low back pain 27 8691127 M54.59 controlled with tylenol [id number] SWETHA HINOJOSA NP [place] [address] [place] [address] 10/02/2024 08:55:20 10/09/2024 09:55:31 Asthenia [id number] R53.1 Deconditio ross due to acute illness and hospitaliz ation.She has been working with PT OT - meeting goals for d/c home today with services.M onitor need for increased services Edema of l ower extremity 792492227 R60.0 Newer issue while here.Spend ing more [...] qam, off qpm Small faby l obstruction 797842380 K56.609 Presented to [facility] with N/V/D and abd. painFailed conservati ve treatmentU nderwent exp. lap, willam. wellPost op complicati on of prolonged ileus, required PPN Now tolerating regular diet, good appetiteMo ving bowels, monitor closelySta ples out, incision healing well.Trend labs, VS, pain, s/s blockage, incisionFo llow up with surgery as sched. 10/12 Inflammato ry bowel disease 17148819 K52.9 Noted on abd. CTTreated with rocephin and flagylNo GI concerns while hereMonito r GI sx, VS, labs as outptFollo w up with GI outpt. Imaging of liver abnormal 943730020 R93.2 Noted on abd. CTMonitor GI statusRefe r to GI as outpt. Acute nont raumatic kidney injury 0685063077 45226 N17.9 Stopped HCTZ/HIPOLITO IResponded well to IVFCurrent ly on Lasix 20 mg qdLabs stableMain tain po fluidsAvoi d nephrotoxi csMonitor labs outpt. Hypertensive disorder 38 817903 I10 VSSHCTZ/AC EI stopped in hosp. due to AKIStarted norvasc 10 mg qd as well as lasix 20 mg qdMonitor VS, labs as outpt., adjust prn Hyperlipidemia 27998208 E78.5 Continue atorvastat in 80 mg qd Peripheral nerve disease 933128838 G64 APAP prn monitor Seizure disorder 3018264 02 G40.909 Continue carbamazep selma 200 mg bidMonitor sz. activity as outpt. Chronic low back pain 27 3931925 M54.50 APAP prn Insomnia 098843922 G47.0 9 ?Trazodone 50 mg qd prn x 14 d on d/c med list but has not used here so will stop this med upon discharge home. Health Concerns Section Related Observation LastModified by Organization Detai ls LastModified Time None Recorded Concern Status LastModified by Organization Details LastModified Time None Recorded Advance Directives Directive None Recorded Payers Insurance Date Sequence Insurance Name Policy Number Policy Kelly Covered Member ID Kelly Member ID Guarantor Name 10/09/2024 1 K[place]STON (O) [id number] Maria Ines Kam [id number] Maria Ines Kam Notes Date Note Type Note Provider Name and Address Organization Details Recorded Time 09/22/2024 text/html Maria Ines is seen today for initial intake. She is an 84 yo lady, admitted to [facility] 09/20/24 from [facility] for continued care and rehab after a brief hosp. due to SBO, ileus, AGUILAR. She presented to [facility] 09/06 with N/V/D and abdominal pain.In ER, [...] due to spinal claudication, seizure disorder SWETHA HINOJOSA, MARIA DE JESUS [address] [facility], [address], [place], [address], [facility] 09/22/2024 10:58:43 09/25/2024 text/html Maria Ines is seen today for an acute visit. She is an 84 yo lady, admitted to [facility] 09/20/24 from [facility] for continued care and rehab after a brief hosp. due to SBO, ileus, AGUILAR. She presented to [facility] 09/06 with N/V/D and abdominal pain.Abd. CT [...] due to spinal claudication, seizure disorder SWETHA HINOJOSA, MARIA DE JESUS [address] [facility], [address], [place], [address], [facility] 09/25/2024 13:14:46 09/27/2024 text/html Maria Ines is seen today for an acute visit. She is an 84 yo lady, admitted to [facility] 09/20/24 from [facility] for continued care and rehab after a brief hosp. due to SBO, ileus, AGUILAR. She presented to [facility] 09/06 with N/V/D and abdominal pain.Abd. CT [...] claudication, seizure disorder SWETHA HINOJOSA NP [address] [facility], [address], [place], [address], [facility] 09/27/2024 10:51:49 09/30/2024 text/html Patient is an [...] continued care and therapy Yusuf Awad MD [address] [facility], [address], [place], [address], [facility] 09/30/2024 09:21:01 10/02/2024 text/html Maria Ines is seen today for discharge.She is returning home today with the support of services. She is an 84 yo lady, admitted to [facility] 09/20/24 from [facility] for continued care and rehab after a brief hosp. due to SBO, ileus, AGUILAR. She presented to [facility] 09/06 with N/V/D and abdominal pain.Abd. CT [...] claudication, seizure disorder SWETHA HINOJOSA NP [address] [facility], [address], [place], [address], [facility] - [facility] 10/02/2024 10:00:08 OBGyn Episode No OBEpisode recorded.
--- OUTSIDE RECORDS SUMMARY | 2025-05-28 17:47 | XMS_ITS | Clinical Summary ---
Author Organization [facility] Address [address] [place] [address] Phone Care Team Providers Care Marketing Support Specialist Name Role Phone Vito Joel MD Primary Care Provider Medications amLODIPine (NORVASC) 10 MG tablet Take 10 mg by mouth daily. 10/03/2024 Active aspirin 81 MG EC tablet Take 81 mg by mouth daily. 10/03/2024 Active furosemide (LASIX) 20 MG tablet Take 20 mg by mouth daily. 10/03/2024 Active atorvastatin (LIPITOR) 80 MG tablet Take 80 mg by mouth daily. 10/03/2024 Active carBAMazepine (TEGRETOL) 200 mg IMMEDIATE release tablet Take 200 mg by mouth 2 (two) times a day. 10/03/2024 Active acetaminophen (TYLENOL) 325 mg tablet Take 650 mg by mouth every 8 (eight) hours as needed for pain (specific location in comments). 10/03/2024 Active Social History Tobacco Use Types Packs/Day Years Used Date Smoking Tobacco: Never Assessed Home Health Assessment: Transportation Answer Date Recorded Lack of Transportation (Medical) No 10/29/2024 Lack of Transportation (Non-Medical) No 10/29/2024 Patient Unable or Declines to Respond No 10/29/2024 Education Answer Date Recorded Are you interested in more education? Not on lisa e 09/28/2024 Are you concerned about learning? Not on file 09/28/2024 No 09/28/2024 No 09/28/2024 Digital Access Answer Date Recorded No 09/28/2024 No 09/28/2024 Reliable internet access at home? Not on file 09/28/2024 Device with a working camera? Not on file Comments Unknown Sex and Gender Information Value Date Recorded Sex Assigned at Not on file Legal Sex Female 3:39 PM EDT Gender Identity Not on file Sexual Orientation Not on file Last Filed Vital Signs Vital Sign Reading Time Taken Comments Blood Pressure 130/66 10/25/2024 11:17 AM EDT Pulse 71 10/25/2024 11:17 AM EDT Temperature 36.6 C (97.8 F) 10/25/2024 11:17 AM EDT Respiratory Rate 16 10/17/2024 2:17 PM EDT Oxygen Saturation 99% 10/25/2024 11:17 AM EDT Inhaled Oxygen Concentration - - Weight - - Height - - Body Mass Index - - Plan of Treatment Not on file Medical Devices Not on file Insurance Skills Matter TOTAL CHOICE INDEMNITY [employer] TOTAL CHOICE INDEMNITY [facility] TOTAL CHOICE INDEMNITY [facility] TOTAL CHOICE INDEMNITY [employer] TOTAL CHOICE INDEMNITY [facility] TOTAL CHOICE INDEMNITY Care Teams Marketing Support Specialist Relationship Specialty Start Date End Date Vito Joel MD [address] [place] [address] [place] [address] PCP - General Internal Medicine 09/28/24 Additional Source Comments The information contained in this document represents components of the legal health record. It is not the complete legal health record.[facility]
== END 2025-05-28 14:34 | disposition home or self-care (01) ==
LOC: HO.HOS 13:10
PROVIDERS: PCP Internal Medicine
DX: S62.310A Displaced fracture of base of second metacarpal bone, right hand, initial encounter for closed fracture (principal); S62.312A Displaced fracture of base of third metacarpal bone, right hand, initial encounter for closed fracture
CPT/HCPCS: 26600; 99204; G2211

== ENCOUNTER → 2025-05-28 13:21 | Outpatient (BNV) | payer OTHER, SELFPAY | PROVIDERS: Visit Provider Radiology Diagnostic Radiology | DX: M79.641 Pain in right hand (principal) | CPT/HCPCS: 73130 ==

== ENCOUNTER 2025-05-30 13:43 | Outpatient (AMB) | payer OTHER, SELFPAY ==
--- OUTSIDE RECORDS SUMMARY | 2023-12-21 04:30 | XMS_ITS ---
Author Organization [facility] Address [address] [place] [address] Care Team Providers Care Supervisor Particleboard Name Role Phone Vito Joel MD Primary Care Provider Horace Irais Sunshine Unavailable [phone] Gerald Alan Unavailable [phone] REASON FOR VISIT wrong patient Encounters Encounter Location Date Provider Diagnosis [address] [address] 12/21/2023 Gerald Alan Plan Of Treatment Next Appt Details Provider Name:Irais Prieto , 09/10/2025 10:30:00 AM, [address] [place], [address], Progress Notes * KAMMaria Ines ADOB:[birth year] (85 yo F)Acc No.[id number]:12/21/2023 Progress Notes Patient: Maria Ines ALFONSO Provider: Ophelia Alan DPM :1940 A ge:83 Y S ex:Female Date:12/21/2023 Address: [address] [place], [place] Pcp:Vito Joel MD Subjective: * Chief Complaints: [...] 12/21/2023 Generated for Chey winslow/Sofie/Ez on: 1 07/30/2024 04:50 PM EST
--- OUTSIDE RECORDS SUMMARY | 2024-09-20 15:31 | XMS_ITS ---
Author Organization Vito Joel MD Address [address] [place] [address] [phone] Care Team Providers Care Communications Administrator Name Role Phone Vito Joel Primary Care Provider REASON FOR VISIT discharge Encounters Encounter Location Date Provider Diagnosis Vito Joel MD 10 [facility] [address] [place] [address] [phone] 09/20/2024 Vito Joel Plan Of Treatment Next Appt Details Provider Name:Vito Johnson ier, 07/10/2025 08:00:00 AM, [address] [place] [address], [address], [phone], Provider Name:Vito Johnson ier, 07/17/2025 01:00:00 PM, [address] [place] [address], [address] [place] [address], [phone], Progress Notes * Maria Ines KAM ADOB:[birth year] (84 yo F)Acc No.[id number]:09/20/2024 Patient: Isacc Maria Ines MORTENSEN :1940 A ge:84 Y S ex:Female Address:[address] [place] [address] * true * Date: Generated for Chey winslow/Sofie/Ez on: 07/30/2024 04:47 PM EST
--- OUTSIDE RECORDS SUMMARY | 2024-10-06 04:41 | XMS_ITS ---
Author Organization Vito Joel MD Address [address] [place] [address] [phone] Care Team Providers Care Training Program Developer Name Role Phone Vito Joel Primary Care Provider [phone] REASON FOR VISIT FYI Encounters Encounter Location Date Provider Diagnosis Vito Joel MD 10 [facility] [address] [place] [address] [phone] 10/06/2024 Vito Joel Plan Of Treatment Next Appt Details Provider Name:Vito Johnson ier, 07/10/2025 08:00:00 AM, [address] [place] [address], [address], [phone], Provider Name:Vito Johnson ier, 07/17/2025 01:00:00 PM, [address] [place] [address], [address] [place] [address], [phone], Progress Notes * Maria Ines KAM ADOB:[birth year] (84 yo F)Acc No.[id number]:10/06/2024 Patient: Isacc SHANNANPLACIDOMaria Ines :1940 A ge:84 Y S ex:Female Address:[place] [address] * true * Date: Generated for Chey winslow/Sofie/Ez on: 07/30/2024 04:50 PM EST
--- OUTSIDE RECORDS SUMMARY | 2024-10-19 04:28 | XMS_ITS ---
Author Organization Vito Joel MD Address [address] [place] [phone] Care Team Providers Care Director Utilization Management Name Role Phone Vito Joel Primary Care Provider REASON FOR VISIT RF amlodipine Medications Medication SIG (Take, Route, Frequency, Duration) Notes Start Date End Date Status amLODIPine Besylate 10 MG 1 tablet Orall y Once a day for 30 days 10/19/2024 Active Encounters Encounter Location Date Provider Diagnosis Vito Joel MD 10 [facility] [address] [place] [phone] 10/19/2024 Vito Joel Plan Of Treatment Medication Medication Name Sig Start Date Stop Date Notes amLODIPine Besylate 10 MG 1 tablet Orall y Once a day for 30 days 10/19/2024 Next Appt Details Provider Name:Vito romero, 07/10/2025 08:00:00 AM, [address] [place] [address], Suite [facility], [place], [place], [phone], Provider Name:Vito romero, 07/17/2025 01:00:00 PM, [address] [place] [address], [address], [phone], Progress Notes * Maria Ines KAM ADOB:[birth year] (84 yo F)Acc No.[id number]:10/19/2024 Patient: Maria Ines ALFONSO :1940 A ge:84 Y S ex:Female Address:[address] [place] [address] * Refills Start amLODIPine Besylate Tablet, 10 MG, Orally, 30, 1 tablet, Once a day, 30 days, Refills=5 * true * Date: Generated for Chey winslow/Sofie/Clementsmitting on: 07/30/2024 04:48 PM EST
--- OUTSIDE RECORDS SUMMARY | 2024-10-30 06:30 | XMS_ITS ---
Author Organization Vito Joel MD Address [address] [place], [place] [phone] Care Team Providers Care Medical Collections Name Role Phone Vito Joel Primary Care Provider Allergies No Known Allergies REASON FOR VISIT PH/TCM Medications Medication SIG (Take, Route, Frequency, Duration) Notes Start Date End Date Status carBAMazepine 200 MG TAKE 1 TABLET TWICE A DAY Orally Twice a day Active Nystatin-Triamcinolone 421189-3.1 UNIT/GM 1 application to affected area Externally [...] kg/m2 10/30/2024 weight is down 6 pounds [facility] e 07-13-24 Encounters Encounter Location Date Provider Diagnosis Vito Joel MD [address] [place] [address] [place] [phone] 10/30/2024 Vito Joel Small bowel obstruction K56.609 [...] Reason: Provider Name:Vito romero, 07/10/2025 08:00:00 AM, [address] [place] [address], Suite [facility], [place], [place], [phone], Provider Name:Vito romero, 07/17/2025 01:00:00 PM, [address] [place] [address], Suite [facility], [place], [place], [phone], Progress Notes * Maria Ines KAM ADOB:[birth year] (84 yo F)Acc No.[id number]:10/30/2024 Patient: Isacc SHANNANPLACIDO Maria Ines Ennis Provider: Kareem Joel MD :1940 A ge:84 Y S ex:Female Date:10/30/2024 Address:[address] [place], [place] [phone] Subjective: * Chief Complaints: * P H/TCM * HPI: S ymptom(s): patient is a 84 [facility]. Discharge summary has been [...] 1 tablet Orally Once a day Not-Taking/PRNNystatin-Triamcinolone 432447-8.1 UNIT/GM Cream 1 application to affected area Externally Twice a day Not-Taking/PRN Nystatin-Triamcinolone 637312-9.1 UNIT/GM Cream 1 application to affected area [...] MD Date: 0 10/30/2024 Generated for Chey winslow/Sofie/Clementsmitting on: 07/30/2024 04:47 PM EST History and Physical Notes * HPI (History of Present Illness) Category Sub-Category Detail Notes Category Not es Symptom(s) patient is a 84 yo female [facility] Discharge summary has been [...]
--- OUTSIDE RECORDS SUMMARY | 2024-11-10 05:59 | XMS_ITS ---
Author Organization Vito Joel MD Address [address] [place] [phone] Care Team Providers Care Artificial Limb Maker Name Role Phone Vito Joel Primary Care Provider REASON FOR VISIT refill Medications Medication SIG (Take, Route, Frequency, Duration) Notes Start Date End Date Status amLODIPine Besylate 10 MG 1 tablet Orall y Once a day for 90 days 10/19/2024 Active Encounters Encounter Location Date Provider Diagnosis Vito Joel MD [address] [place] [phone] 11/10/2024 Vito Joel Essential hypertension I10 Assessments Encounter Date Diagnosis (ICD Code) Assessment Notes Treatment Notes Treatment Clinical Notes Section Notes 11/10/2024 Essential hypertension (ICD-10 - I10) Plan Of Treatment Medication Medication Name Sig Start Date Stop Date Notes amLODIPine Besylate 10 MG 1 tablet Orall y Once a day for 90 days 10/19/2024 Next Appt Details Provider Name:Vito romero, 07/10/2025 08:00:00 AM, [address] [place] [address], Suite [facility], [place], [place], [phone], Provider Name:Vito romero, 07/17/2025 01:00:00 PM, [address] [place] [address], [address], [place], [place], [phone], Progress Notes * Maria Ines KAM ADOB:[birth year] (84 yo F)Acc No.[id number]:11/10/2024 Patient: Maria Ines ALFONSO :1940 A ge:84 Y S ex:Female Address:[address] [place] [address] [place] [address] * Refills Refill amLODIPine Besylate Tablet, 10 MG, Orally, 90, 1 tablet, Once a day, 90 days, Refills=3 * true * Date: Generated for Chey winslow/Sofie/Dwayneitting on: 07/30/2024 04:48 PM EST
--- OUTSIDE RECORDS SUMMARY | 2024-11-28 06:30 | XMS_ITS ---
Author Organization Vito Joel MD Address [address] [place], [place] [phone] Care Team Providers Care Information Technology Architect Name Role Phone Vito Joel Primary Care Provider [phone] Allergies No Known Allergies REASON FOR VISIT 4 WEEK F/U, Patient is not sure if she has been taking Furosemide Medications Medication SIG (Take, Route, Frequency, Duration) Notes Start Date End Date Status Nystatin-Triamcinolone 547941-9.1 UNIT/GM 1 application to affected area Externally [...] Location Date Provider Diagnosis Vito Joel MD [address] [place] [address] [place] [phone] 11/28/2024 Vito Joel Essential hypertension I10 and [...] Reason: Provider Name:Vito romero, 07/10/2025 08:00:00 AM, [address] [place] [address], [place] [address], [place], [place], [phone], Provider Name:Vito romero, 07/17/2025 01:00:00 PM, [address] [place] [address], [place] [address], [place], [place], [phone], Progress Notes * Maria Ines KAM ADOB:[birth year] (84 yo F)Acc No.[id number]:11/28/2024 Progress Notes Patient: Maria Ines ALFONSO Provider: Kareem Joel MD :1940 A ge:84 Y S ex:Female Date:11/28/2024 Address:[address] [place], [place] [phone] Subjective: * Chief Complaints: * 4 WEEK [...] 1 tablet Orally Once a day Not-Taking/PRNNystatin-Triamcinolone 541973-6.1 UNIT/GM Cream 1 application to affected area Externally Twice a day Medication List reviewed and reconciled with the patientNot-Taking/PRN Nystatin-Triamcinolone 998150-9.1 UNIT/GM Cream 1 application to affected area [...] 0 11/28/2024 Generated for Chey winslow/Sofie/Dwayneitting on: 07/30/2024 04:50 PM EST History and Physical Notes * [...]
--- OUTSIDE RECORDS SUMMARY | 2024-12-28 05:30 | XMS_ITS ---
Author Organization Vito Joel MD Address [address] [place], [place] [phone] Care Team Providers Care Poly Operator Name Role Phone Vito Joel Primary Care [...] day for 90 days 10/19/2024 Active Nystatin-Triamcinolone 597425-6.1 UNIT/GM 1 application to affected area Externally Twice a day for 30 days 09/21/2017 Not-Taking Vital Signs Blood pressure systolic 142 mm Hg 12/29/19 25 Blood pressure diastolic 56 mm Hg 025 Height 65.25 in 12/28/2024 Weight 175 lbs 12/28/2024 BMI 28.9 kg/m2 12/28/2024 Encounters Encounter Location Date Provider Diagnosis Vito Joel MD [address] [place] [phone] 12/28/2024 Vito Joel Prediabetes R73.09 and Edema [...] Reason: Provider Name:Vito romero, 07/10/2025 08:00:00 AM, [address] [place] [address], [phone], Provider Name:Vito romero, 07/17/2025 01:00:00 PM, [address] [place] [address], [place], [place], [phone], Progress Notes * Maria Ines KAM ADOB:[birth year] (84 yo F)Acc No.[id number]:12/28/2024 Progress Notes Patient: Maria Ines ALFONSO Provider: Kareem Joel MD :1940 A ge:84 Y S ex:Female Date:12/28/2024 Address:[address] [place], [place] [id number] Subjective: * Chief Complaints: * 4 WEEKC/o [...] 1 tablet Orally Once a day Not-Taking/PRNNystatin-Triamcinolone 945294-7.1 UNIT/GM Cream 1 application to affected area Externally Twice a day Medication List reviewed and reconciled with the patientNot-Taking/PRN Nystatin-Triamcinolone 617363-8.1 UNIT/GM Cream 1 application to affected area [...] 2947 ASSAY, GLUCOSE, BLOOD QUANT, Modifiers: QW 79133 GLYCATED HEMOGLOBIN TEST, Modifiers: QW * Follow Up: 2 Months * * Sign off status: Completed true * Provider: Kareem Joel MD Date: 0 12/28/2024 Generated for Chey winslow/Sofie/Clementsmitting on: 1 07/30/2024 04:46 PM EST History and Physical Notes * [...]
--- OUTSIDE RECORDS SUMMARY | 2025-02-09 03:15 | XMS_ITS ---
Author Organization Vito Joel MD Address [address] [place], [place] [id number] Care Team Providers Care Wool Puller Name Role Phone Vito Joel Primary Care Provider Results Component Value Reference Range Notes Liver Panel Reviewed date:02/09/2025 04:39:24 PM Interpretation: Performing Lab:[facility], [address] [place] [phone] Notes/Report: Bilirubin Total 0.2 0.0-1.0 mg/dL Bilirubin Direct < 0.2 0.0-0.5 mg/dL Aspartate Amino Transferase 32 5-31 U/L Alanine Aminotransferase 18 0-31 U/L Total Protein 6.6 6.5-8.0 g/dL Albumin Level 4.1 3.5-5.0 g/dL Alkaline Phosphatase 137 39-117 U/L Glucose Fasting Reviewed date:02/09/2025 04:39:01 PM Interpretation: Performing Lab:[facility], [address] [place] [phone] Notes/Report: Glucose Fasting 102 60-99 mg/dL A fasting glucose from 100-125 mg/dl is considered impaired (pre-diabetes). Lipid Panel with Reflex Reviewed date:02/09/2025 04:51:34 PM Interpretation: Performing Lab:[facility], [address] [place] [phone] Notes/Report: Triglycerides 97 <150 mg/dL Desirable Triglyceride: [...] A1c Reviewed date:02/09/2025 04:39:33 PM Interpretation: Performing Lab:[facility], [address] [place] [phone] Notes/Report: Hemoglobin A1c % 5.7 <6.0 % [...] average glucose, using the formula of the [id number]-Ilbzbvn Average Glucose study (ADAG), Diabetes Care, Vol.31,#8, Feb. 2007 REASON FOR VISIT FASTING LIPIDS Encounters Encounter Location Date Provider Diagnosis Vito Joel MD [address] [place] [address] Drive [address] [place], [place] [id number] 02/09/2025 Vito Joel Prediabetes R73.09 a nd Pure hypercholesterolemia E78.00 Assessments Encounter Date Diagnosis (ICD Code) Assessment Notes Treatment Notes Treatment Clinical Notes Section Notes 02/09/2025 Prediabetes (ICD-10 - R73.09) 02/09/2025 Pure hypercholesterolemia (ICD-10 - E78.00) Plan Of Treatment Next Appt Details Provider Name:Vito Johnson ier, 07/10/2025 08:00:00 AM, [address], [address], [place], [id number], Provider Name:Vito Johnson ier, 07/17/2025 01:00:00 PM, [address], [address], [place], [place], [id number], Progress Notes * Maria Ines KAM ADOB:[birth year] (85 yo F)Acc No.[id number]:02/09/2025 Progress Note Patient: Maria Ines ALFONSO Provider: Kareem Joel MD :1940 A ge:84 Y S ex:Female Date:02/09/2025 Address:[address] [place], [place] [id number] Subjective: * Chief Complaints: * 1 . [...] MD Date: 0 02/09/2025 Generated for Chey winslow/Sofie/eTmickeyitting on: 07/30/2024 04:46 PM EST
--- OUTSIDE RECORDS SUMMARY | 2025-02-16 05:30 | XMS_ITS ---
Author Organization Vito Joel MD Address [address] [place], [place] [phone] Care Team Providers Care Refinery Operator Name Role Phone Vito Joel Primary Care Provider Allergies No Known Allergies REASON FOR VISIT 6 MO F/U Medications Medication SIG (Take, Route, Frequency, Duration) Notes Start Date End Date Status Nystatin-Triamcinolone 577288-4.1 UNIT/GM 1 application to affected area Externally [...] Location Date Provider Diagnosis Vito Joel MD [address] [place] [address] Drive [address] [place], [place] [phone] 02/16/2025 Vito Joel Essential hypertensi on I10 [...] Provider Name:Vito Johnson ier, 07/10/2025 08:00:00 AM, [address] [place] [address], [address], [place], [place], [phone], Provider Name:Vito Johnson ieelle, 07/17/2025 01:00:00 PM, [address] [place] [address], [address], [place], [place], [phone], Progress Notes * Maria Ines KAM ADOB:[birth year] (84 yo F)Acc No.[id number]:02/16/2025 Progress Notes Patient: Maria Ines ALFONSO Loli Provider: Kareem Joel MD :1940 A ge:84 Y S ex:Female Date:02/16/2025 Address:[address] [place], [place] [phone] Subjective: * Chief Complaints: * 6 MO [...] MG Tablet TAKE 1 TABLET DAILY Not-Taking/PRNNystatin-Triamcinolone 978306-8.1 UNIT/GM Cream 1 application to affected area Externally Twice a day Medication List reviewed and reconciled with the patientNot-Taking/PRN Nystatin-Triamcinolone 995037-3.1 UNIT/GM Cream 1 application to affected area [...] 0 02/16/2025 Generated for Chey winslow/Sofie/Ez on: 07/30/2024 04:47 PM EST History and [...]
--- OUTSIDE RECORDS SUMMARY | 2025-02-26 05:53 | XMS_ITS ---
Author Organization Vito Joel MD Address [address] [place] [phone] Care Team Providers Care Process Mechanic Name Role Phone Vito Joel Primary Care Provider Medications Medication SIG (Take, Route, Fr equency, Duration) Notes Start Date End Date Status Furosemide 20 MG 1 tablet Orally Once a day for 90 days 12/28/2024 Active Encounters Encounter Location Date Provider Diagnosis Vito Joel MD [address] [facility] [address] [place] [phone] 02/26/2025 Vito Joel Edema leg R60.0 Assessments Encounter Date Diagnosis (ICD Code) Assessment Notes Treatment Notes Treatment Clinical Notes Section Notes 02/26/2025 Edema leg (ICD-10 - R60.0) Plan Of Treatment Medication Medication Name Sig Start Date Stop Date Notes Furosemide 20 MG 1 tablet Orally Once a day for 90 days Next Appt Details Provider Name:Vito romero, 07/10/2025 08:00:00 AM, [address] [place] [address], [address], [phone], Provider Name:Vito romero, 07/17/2025 01:00:00 PM, [address], [address], [phone], Progress Notes * Maria Ines KAM ADOB:[birth year] (85 yo F)Acc No.[id number]:02/26/2025 Patient: Maria Ines ALFONSO :1940 A ge:85 Y S ex:Female Address:[address] [place] [id number] * Refills Refill Furosemide Tablet, 20 MG, Orally, 90 Tablet, 1 tablet, Once a day, 90 days, Refills=3 * true * Date: Generated for Chey winslow/Sofie/Dwayneitting on: 07/30/2024 04:48 PM EST
--- OUTSIDE RECORDS SUMMARY | 2025-03-08 05:00 | XMS_ITS ---
Author Organization [facility] Address [address] [place] [address] Care Team Providers Care Physical Security Manager Name Role Phone Vito Joel MD Primary Care Provider Irais Mcghee [phone] Medications Medication SIG (Take, Route, Frequency, Duration) [...] Active Encounters Encounter Location Date Provider Diagnosis [address] [address] 03/08/2025 Irais Conner Plan Of Treatment Next Appt Details Provider Name:Irais Prieto , 09/10/2025 10:30:00 AM, [address] [place], [address], Progress Notes * Maria Ines KAM ADOB:[birth year] (85 yo F)Acc No.[id number]:03/08/2025 Progress Note Patient: Maria Ines ALFONSO Provider: Bebe Prieto DPM :1940 A ge:85 Y S ex:Female Date:03/08/2025 [facility] [place] [place] Pcp:Vito Joel MD Subjective: * Chief Complaints: [...] DPM Date: 0 03/08/2025 Generated for Chey winslow/Sofei/Ez on: 07/30/2024 04:46 PM EST
--- OUTSIDE RECORDS SUMMARY | 2025-05-24 08:15 | XMS_ITS ---
Author Organization [facility] Address [address] [place] [address] Care Team Providers Care Cake Wrapper Name Role Phone Vito Joel MD Primary Care Provider Irais Mcghee [phone] REASON FOR VISIT Seen Sooner Encounters Encounter Location Date Provider Diagnosis [facility] [address] [place] [address] 05/24/2025 Irais Prieto Plan Of Treatment Next Appt Details Provider Name:Iraiscaty Prieto , 09/10/2025 10:30:00 AM, [address] [place], [address], Progress Notes * Maria Ines KAM ADOB:[birth year] (85 yo F)Acc No.[id number]:05/24/2025 Progress Note Patient: Maria Ines ALFONSO Provider: Bebe Prieto DPM :1940 A ge:85 Y S ex:Female Date:05/24/2025 Address: [address] [place], [place] Pcp:Vito Joel MD Subjective: * Chief Complaints: * 1 . Seen Sooner. * Medical History: Objective: * Vitals: Assessment: Plan: * Treatment: * Images: * The named appointment provid er may or may not be the originator of this progress note, and it is not deemed complete until electronically signed by the appointment provider. Sign off status: Pending * Provider: Bebe Prieto DPM Date: 1 07/24/2024 Generated for Chey winslow/Sofie/Ez on: 07/30/2024 04:46 PM EST
[2025-05-30 13:45] VITALS: BMI 28.8
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
--- OUTSIDE RECORDS SUMMARY | 2025-05-30 16:47 | XMS_ITS | Clinical Summary ---
Author Organization [facility] Address [address] [place] [phone] Phone Care Team Providers Care Kiln Car Unloader Name Role Phone Vito Joel MD Primary [...] file Medical Devices Not on file Insurance [employer] TOTAL CHOICE INDEMNITY [employer] TOTAL CHOICE INDEMNITY [facility] TOTAL CHOICE INDEMNITY [facility] TOTAL CHOICE INDEMNITY [facility] TOTAL CHOICE [facility]MNITY [facility] CHOICE INDEMNITY Care Teams Kiln Car Unloader Relationship Specialty Start Date End Date Vito Joel MD [address] [place] [address] [place] [address] PCP - General Internal Medicine 09/28/24 Additional Source Comments The information contained in this document represents components of the legal health record. It is not the complete legal health record.[facility]
--- OUTSIDE RECORDS SUMMARY | 2025-05-30 16:48 | XMS_ITS | Patient Health Record ---
Author Organization Vito Joel MD Address [address] [place], [place] [id number] Care Team Providers Care Brew [employer] Supervisor Name Role Phone Vito Joel Primary Care Provider [phone] Allergies No Known Allergies Results Component Value Reference Range Notes Hemoglobin A1c Reviewed date:12/28/2024 10:42:40 AM Interpretation: Performing Lab: Notes/Report: Hemoglobin A1c 5.5 Complete Blood Count Auto Di ff Reviewed date:07/06/2024 01:41:47 PM Interpretation: Performing Lab:[facility], [address] [place] [phone] Notes/Report: White Blood Count 5.9 4.8-10.8 X10*3/uL [...] NRBC Abs Auto 0.000 0.0-0.012 X10*3/uL Comprehensive [place]. Panel Fa st Reviewed date:07/06/2024 01:53:50 PM Interpretation: Performing Lab:[facility], [address] [place] [address] Notes/Report: Sodium 135 135-145 mmol/L Potassium 4.1 [...] Panel Reviewed date:07/06/2024 01:43:16 PM Interpretation: Performing Lab:[facility], [address] [place] [phone] Notes/Report: Triglycerides 81 <150 mg/dL Desirable Triglyceride: [...] Random Reviewed date:07/06/2024 01:41:54 PM Interpretation: Performing Lab:[facility], [address] [place] [phone] Notes/Report: Creatinine Urine 67.54 Microalbumin Urine 25.0 Microalbum/Creatinine Ratio Ur 37.0 <30 ug/mg cr Albumin/Creatinine Ratio Reference Ranges: Normal: < 30 ug/mg creatinine Microalbuminuria: 30 - 300 ug/mg creatinine Clinical Albuminuria: > 300 ug/mg creatinine Hemoglobin A1c Reviewed date:07/06/2024 01:43:25 PM Interpretation: Performing Lab:[facility], [address] [place] [phone] Notes/Report: Hemoglobin A1c % 5.6 <6.0 % [...] average glucose, using the formula of the H1E-Rvgvtcs Average Glucose study (ADAG), Diabetes Care, Vol.31,#8, Feb. 2007 UA ClnCatch+Micro w/rflx Cul t Reviewed date:07/13/2024 11:30:15 AM Interpretation:JENNIFER 07/13/24 Performing Lab:[address] [address] Notes/Report: Urine, Clean Catch Color Urine Yellow Appearance Urine Clear PH 7.0 5.0-9.0 Glucose Urine UA Negative Negative mg/dL Urine Blood Small (1+) Negative Specific W[place] - Urine 1.010 1.005-1.025 Urine Protein Negative Neg-Trace mg/dL Urine Ketones Negative Negative mg/dL Nitrite Urine Negative Negative Leukocyte Esterase Urine Moderate (2+) Negative RBC Urine 3-5 0-2 /HPF WBC Urine 6-10 0-5 /HPF Squamous Epithelial Cell Urine 3-5 0-2 /HPF Bacteria Urine 1+ None Seen Hyaline Casts Urine 0-2 0-2 /LPF Liver Panel Reviewed date:02/09/2025 04:39:24 PM Interpretation: Performing Lab:[address] [address] Notes/Report: Bilirubin Total 0.2 0.0-1.0 mg/dL Bilirubin Direct < 0.2 0.0-0.5 mg/dL Aspartate Amino Transferase 32 5-31 U/L Alanine Aminotransferase 18 0-31 U/L Total Protein 6.6 6.5-8.0 g/dL Albumin Level 4.1 3.5-5.0 g/dL Alkaline Phosphatase 137 39-117 U/L Glucose Fasting Reviewed date:02/09/2025 04:39:01 PM Interpretation: Performing Lab:[address] [address] Notes/Report: Glucose Fasting 102 60-99 mg/dL A fasting glucose from 100-125 mg/dl is considered impaired (pre-diabetes). Lipid Panel with Reflex Reviewed date:02/09/2025 04:51:34 PM Interpretation: Performing Lab:[address] [address] Notes/Report: Triglycerides 97 <150 mg/dL Desirable Triglyceride: [...] A1c Reviewed date:02/09/2025 04:39:33 PM Interpretation: Performing Lab:[address] [address] Notes/Report: Hemoglobin A1c % 5.7 <6.0 % [...] average glucose, using the formula of the Q2I-Axiphiw Average Glucose study (ADAG), Diabetes Care, Vol.31,#8, Feb. 2007 Occult Blood, Stool, Guaiac Reviewed date:07/13/2024 01:43:12 PM Interpretation:Negative Performing Lab: Notes/Report: Negative Occult Blood, Stool, Guaiac Neg Glucose, finger stick Reviewed date:12/28/2024 10:35:13 AM Interpretation: Performing Lab: Notes/Report: Value 98 Urine Culture Reviewed date:07/13/2024 12:31:12 PM Interpretation: Performing Lab:[facility], [address] [place] [phone] Notes/Report: O:ESCCOL Escherichia coli Urine Culture Quant Urine Culture > 100,000 cfu/mL Ampicillin 8 Cefazolin 2 Cefepime <=0.12 Ceftriaxone <=0.25 Ciprofloxacin <=0.06 Gentamicin <=1 Nitrofurantoin <=16 Trimethoprim/Sulfamethox azole <=20 UA ClnCatch+Micro w/rflx Cul t Reviewed date:09/07/2024 12:41:56 PM Interpretation: Performing Lab:[facility], [address] [place] [phone] Notes/Report: Urine, Clean Catch Color Urine Dark Yellow Appearance Urine Clear PH 6.0 5.0-9.0 Glucose Urine UA Negative Negative mg/dL Urine Blood Negative Negative Specific [place] - Urine >= 1.030 1.005-1.025 Urine Protein [...] 10:29:18 AM Interpretation:reel radiology Performing Lab: Notes/Report: [address] [address] [address] Scan Report Signed with Addenda Patient: Maria Ines Kam MR#: [id number] 983 : 1940 Acct:[id number] Age/Sex: 84 / F ADM Date: 09/06/24 Loc: [place] [address]: Kavon Burnham MD Ordering Physician: Mago Mckeon MD Date of Service: 09/06/24 Procedure(s): CT abdomen pelvis w IV con Accession Number(s): [id number] cc: Vito Joel MD; Mago Mckeon MD Report Number: [id number]: Total DLP = 734.00 mGy-cm ADDENDUM This [...] in OV> 09/06/241832 DD/ 31 TD/TT: 09/06/241831 Paper Goods Machine Operator: [address] [address] [address] Scan Report Signed with Addenda Patient: Armin Kam MR#: [id number] 983 : 1940 Acct:[id number] Age/Sex: 84 / F ADM Date: 09/06/24 [facility]: Xavier Burnham MD Ordering Physician: Mago Mckeon MD Date of Service: 09/06/24 Procedure(s): CT abd omen pelvis w IV con Accession Number(s): [id number] cc: Vito Joel MD; Mago Mckeon MD Report Number: [id number]: Total DLP = 734.00 mGy-cm ADDENDUM This [...] in OV> 09/06/241832 DD/ 31 TD/TT: 09/06/241831 Paper Goods Machine Operator: XR chest 1V Reviewed date:09/07/2024 10:29:44 AM Interpretation: Performing Lab: Notes/Report: [address] [address] XRay Report Signed Patient: Maria Ines Kam MR#: [id number] 983 : 1940 Acct:[id number] Age/Sex: 84 / F ADM Date: 09/06/24 Loc: [place] [address]: Jose Wallace MD Ordering Physician: Mago Mckeon MD Date of Service: 09/06/24 Procedure(s): XR chest 1V Accession Number(s): [id number] cc: Vito Joel MD; Mago Mckeon MD [...] in OV> 09/06/242122 DD/ 20 TD/TT: 09/06/242120 Paper Goods Machine Operator: [address] [address] XRay Report Signed Patient: Armin Kam MR#: [id number] 983 : 1940 Acct:[id number] Age/Sex: 84 / F ADM Date: 09/06/24 Loc: [place] [address]: Lakesha Wallace MD Ordering Physician: Mago Mckeon MD Date of Service: 09/06/24 Procedure(s): XR jose st 1V Accession Number(s): [id number] cc: Vito Joel MD; Mago Mckeon MD [...] in OV> 09/06/242122 DD/ 20 TD/TT: 09/06/242120 Paper Goods Machine Operator: Complete Blood Count no Diff Reviewed date:09/07/2024 12:33:32 PM Interpretation: Performing Lab:[facility], [address] [place] [phone] Notes/Report: White Blood Count 21.7 4.8-10.8 X10*3/uL [...] Panel Reviewed date:09/07/2024 10:30:09 AM Interpretation: Performing Lab:[address] [address] Notes/Report: Sodium 137 135-145 mmol/L Potassium 3.9 [...] Sensitivity Reviewed date:09/08/2024 12:12:52 PM Interpretation: Performing Lab:[facility], [address] [place] [phone] Notes/Report: Troponin-I High Sensitivity 73.8 <3.5-17.0 ng/L Critical value for test(s): TROPONIN Results called to and read back by: MANUEL Person calling: BLAISE Date: 09/07/24 Time: 1915 The Cronin high sensitivity Troponin-I results should be used in conjunction with other diagnostic information such as ECG, clinical observations and information, and patient symptoms to aid in the diagnosis of ME. XR chest 1V Reviewed date:09/08/2024 12:12:42 PM Interpretation: Performing Lab: Notes/Report: [address] [address] XRay Report Signed Patient: Maria Ines Kam MR#: [id number] 983 : 1940 Acct:[id number] Age/Sex: 84 / F ADM Date: 09/06/24 Loc: [place] Attending Dr: Kavon Burnham MD Ordering Physician: Jose Wallace MD Date of Service: 09/07/24 Procedure(s): XR chest 1V Accession Number(s): [id number] cc: Vito Joel MD; Jose Wallace MD [...] in OV> 09/07/242124 DD/ 23 TD/TT: 09/07/242123 Paper Goods Machine Operator: [address] [address] XRay Report Signed Patient: Armin Kam MR#: [id number] 983 : 1940 Acct:[id number] Age/Sex: 84 / F ADM Date: 09/06/24 Loc: [place] Attending Dr: Xavier Burnham MD Ordering Physician: Jose Wallace MD Date of Service: 09/07/24 Procedure(s): XR jose st 1V Accession Number(s): [id number] cc: Vito Joel MD; Jose Wallace MD [...] in OV> 09/07/242124 DD/ 23 TD/TT: 09/07/242123 Paper Goods Machine Operator: XR chest 1V Reviewed date:09/08/2024 12:11:49 PM Interpretation: Performing Lab: Notes/Report: [address] [address] XRay Report Signed with Breana Patient: Maria Ines Kam MR#: [id number] 983 : 1940 Acct:[id number] Age/Sex: 84 / F ADM Date: 09/06/24 Loc: [place] [address]: Kavon Burnham MD Ordering Physician: Jose Wallace MD Date of Service: 09/07/24 Procedure(s): XR chest 1V Accession Number(s): [id number] cc: Vito Joel MD; Jose Wallace MD [...] in OV> 09/07/242126 DD/ 25 TD/TT: 09/07/242125 Paper Goods Machine Operator: [address] [address] XRay Report Signed with Breana Patient: Armin Kam MR#: [id number] 983 : 1940 Acct:[id number] Age/Sex: 84 / F ADM Date: 09/06/24 Loc: [facility]: Xavier Burnham MD Ordering Physician: Jose Wallace MD Date of Service: 09/07/24 Procedure(s): XR jose st 1V Accession Number(s): [id number] cc: Vito Joel MD; Jose Wallace MD [...] in OV> 09/07/242126 DD/ 25 TD/TT: 09/07/242125 Paper Goods Machine Operator: XR chest 1V Reviewed date:09/08/2024 12:11:23 PM Interpretation: Performing Lab: Notes/Report: [address] [address] XRay Report Signed Patient: Maria Ines Kam MR#: [id number] 983 : 1940 Acct:[id number] Age/Sex: 84 / F ADM Date: 09/06/24 Loc: [facility]: Kavon Burnham MD Ordering Physician: Jose Wallace MD Date of Service: 09/07/24 Procedure(s): XR chest 1V Accession Number(s): [id number] cc: Vito Joel MD; Jose Wallace MD [...] in OV> 09/07/242316 DD/ 15 TD/TT: 09/07/242315 Paper Goods Machine Operator: [address] [address] XRay Report Signed Patient: Armin Kam MR#: [id number] 983 : 1940 Acct:[id number] Age/Sex: 84 / F ADM Date: 09/06/24 Loc: [facility]: Xavier Burnham MD Ordering Physician: Jose Wallace MD Date of Service: 09/07/24 Procedure(s): XR jose st 1V Accession Number(s): [id number] cc: Vito Joel MD; Jose Wallace MD [...] in OV> 09/07/242316 DD/ 15 TD/TT: 09/07/242315 Paper Goods Machine Operator: Complete Blood Count no Diff Reviewed date:09/08/2024 12:45:54 PM Interpretation: Performing Lab:[facility], [address] [place] [phone] Notes/Report: SPECIMEN QNS White Blood Count 18.4 [...] Panel Reviewed date:09/08/2024 12:10:27 PM Interpretation: Performing Lab:[facility], [address] [place] [phone] Notes/Report: Sodium 138 135-145 mmol/L Potassium 4.0 [...] Sensitivity Reviewed date:09/08/2024 12:11:00 PM Interpretation: Performing Lab:[facility], [address] [place] [address] Notes/Report: Troponin-I High Sensitivity 101.3 <3.5-17.0 ng/L Critical value for test(s): TROP Results called to and read back by: MANUEL Person calling: VYASRID Date: [id number] Time:015 The Cronin high sensitivity Troponin-I results should be used in conjunction with other diagnostic information such as ECG, clinical observations and information, and patient symptoms to aid in the diagnosis of ME. FL small bowel follow throug h Reviewed date:09/11/2024 12:48:07 PM Interpretation: Performing Lab: Notes/Report: [address] [address] Fluoroscopy Report Signed Patient: Maria Ines Kam MR#: [id number] 983 : 1940 Acct:[id number] Age/Sex: 84 / F ADM Date: 09/06/24 Loc: .S3 352-[address]: Kavon Burnham MD Ordering Physician: Lexi Walsh PA-C Date of Service: 09/08/24 Procedure(s): FL small bowel follow through Accession Number(s): [id number] cc: Vito Joel MD; Lexi Walsh PA-C EXAMINATION: FL SMALL BOWEL SERIES CLINICAL INFORMATION: ?SBO, abd distention, persistent nausea COMPARISON: None available. TECHNIQUE: Following a field installer image of the abdomen, thick barium contrast was administered orally, and interval abdominal radiographs were performed to assess for contrast progression through the small bowel. Following contrast transit through the small bowel and into the colon, the patient was placed on the fluoroscopy table, and multiple spot images were obtained. FINDINGS: Burlap Bag Sewer image of the abdomen demonstrates obstructed proximal [...] OV> 09/11/24 1035 DD/ 14 TD/TT: 09/08/242019 Paper Goods Machine Operator: [place] [address] Fluoroscopy Report Signed Patient: Armin Kam MR#: [id number] 983 : 1940 Acct:[id number] Age/Sex: 84 / F ADM Date: 09/06/24 Loc: [facility]-[address]: Xavier Burnham MD Ordering Physician: Lexi Walsh PA-C Date of Service: 09/08/24 Procedure(s): FL sma ll bowel follow through Accession Number(s): [id number] cc: Vito Joel MD; Lexi Walsh PA-C EXAMINATION: FL SMALL BOWEL SERIES CLINICAL INFORMATION: ?SBO, abd distention , persistent nausea COMPARISON: None available. TECHNIQUE: Following a field installer im age of the abdomen, thick barium contrast was administered orally, and interval abdominal radiographs were performed to assess for contra st progression through the small bowel. Following contrast transit thr ough the small bowel and into the colon, the patient was placed o n the fluoroscopy table, and multiple spot images were obtained. FINDINGS: Burlap Bag Sewer image of the abdomen demonstrates obstructed proximal [...] OV> 09/11/24 1035 DD/ 14 TD/TT: 09/08/242019 Paper Goods Machine Operator: [facility] XR KUB Reviewed date:09/08/2024 12:10:15 PM Interpretation: Performing Lab: Notes/Report: [address] [address] XRay Report Signed Patient: Maria Ines Kam MR#: [id number] 983 : 1940 Acct:[id number] Age/Sex: 84 / F ADM Date: 09/06/24 Loc: [facility] 352-[address]: Kavon Burnham MD Ordering Physician: Kavon Burnham MD Date of Service: 09/08/24 Procedure(s): XR KUB Accession Number(s): [id number] cc: Vito Joel MD; Kavon Burnham MD [...] MD Signed By: <Electronically signed by Jeff Mcanir MD in OV> 09/08/24 0934 DD/ 0850 TD/TT: 09/08/24 09 Paper Goods Machine Operator: [address] [place] [address] XRay Report Signed Patient: Armin Kam MR#: [id number] 983 : 1940 Acct:[id number] Age/Sex: 84 / F ADM Date: 09/06/24 Loc: [facility] 352-[address]: Xavier Burnham MD Ordering Physician: Kavon Burnham MD Date of Service: 09/08/24 Procedure(s): XR KUB Accession Number(s): [id number] cc: Vito Joel MD; Kavon Burnham MD [...] 09/08/24 0934 DD/ 0850 TD/TT: 09/08/24 0901 Paper Goods Machine Operator: RUIZ Troponin-I High Sensitivity Reviewed date:09/08/2024 12:09:04 PM Interpretation: Performing Lab:[facility], [address] [place] [phone] Notes/Report: Unable to obtain 2x 1037 09/08/24 [place] Troponin-I High Sensitivity 117.1 <3.5-17.0 ng/L Critical troponin sent by a secure message and confirmed by Kavon Burnham 09/08/24 1202 Tech: caroline The Cronin high sensitivity Troponin-I results should be used in conjunction with other diagnostic information such as ECG, clinical observations and information, and patient symptoms to aid in the diagnosis of ME. Complete Blood Count no Diff Reviewed date:09/10/2024 02:50:48 PM Interpretation: Performing Lab:[facility], [address] [place] [address] Notes/Report: Unable to obtain x2 attempts rs09/09 [...] Panel Reviewed date:09/10/2024 02:51:37 PM Interpretation: Performing Lab:[facility], [address] [place] [phone] Notes/Report: Unable to obtain x2 attempts 09/09 [...] Diff Reviewed date:09/10/2024 02:53:03 PM Interpretation: Performing Lab:[facility], [address] [place] [phone] Notes/Report: White Blood Count 14.0 4.8-10.8 X10*3/uL [...] Panel Reviewed date:09/10/2024 02:47:59 PM Interpretation: Performing Lab:[facility], [address] [place] [phone] Notes/Report: Sodium 139 135-145 mmol/L Potassium 3.2 [...] Pathology Reviewed date:09/12/2024 01:54:32 PM Interpretation: Performing Lab:[facility], [address] [place] [phone] Notes/Report: ---- Name: Maria Ines Kam Age/Sex: 84/F : 1940 Unit#: [id number] Attend Dr: Kavon Burnham MD Re09/06/24 Status : ADM IN Location: [place] [address]-1 Disch: ---- SPEC : [id number] RECD : 09/11/24 STATUS: MARIALUISA REQ NUM: [id number] BRET: 09/10/[address] [facility] [address]: Isabela Lopez MD ENTERED: [...] therefore it is difficult to orie nt. 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 CEDS Copies To: Vito Joel MD [facility] [address] [place] [address] Kavon Burnham MD [address] [place], [place] [id number] Isabela Lopez MD [facility] [address] [place] [address] ?[place] [address] [email or web address] ---- Signed (signature on file) Talia Ricardo MD 09/12/24 1304 ---- END OF REPORT SKYLER TA Reviewed date:09/10/2024 02:50:05 PM Interpretation: Performing Lab: Notes/Report: [address] [address] XRay Report Signed Patient: Maria Ines Kam MR#: [id number] 983 : 1940 Acct:[id number] Age/Sex: 84 / F ADM Date: 09/06/24 Loc: [facility] 352-[address]: Pj Choudhary MD Ordering Physician: Jeff Mcnair MD Date of Service: 09/09/24 Procedure(s): SKYLER TA Accession Number(s): [id number] cc: Vito Joel MD; Jeff Mcnair MD [...] 09/10/24 1108 DD/ 110 TD/TT: 09/10/24 110 Paper Goods Machine Operator: [address] [address] XRay Report Signed Patient: Armin Kam MR#: [id number] 983 : 1940 Acct:[id number] Age/Sex: 84 / F ADM Date: 09/06/24 Loc: [facility]-[address]: Pj Choudhary MD Ordering Physician: Jeff Mcnair MD Date of Service: 09/09/24 Procedure(s): XR KUB Accession Number(s): [id number] cc: Vito Joel MD; Jeff Mcnair MD [...] 09/10/24 1108 DD/ 1107 TD/TT: 09/10/24 1107 Paper Goods Machine Operator: SKYLER TA Reviewed date:09/10/2024 02:50:29 PM Interpretation: Performing Lab: Notes/Report: [address] [address] XRay Report Signed Patient: Maria Ines Kam MR#: [id number] 983 : 1940 Acct:[id number] Age/Sex: 84 / F ADM Date: 09/06/24 Loc: [facility] 352-[address]: Pj Choudhary MD Ordering Physician: Isabela Lopez MD Date of Service: 09/10/24 Procedure(s): XR KUB Accession Number(s): [id number] cc: Vito Joel MD; Isabela Lopez MD [...] 09/10/24 1249 DD/ 1248 TD/TT: 09/10/24 1248 Paper Goods Machine Operator: [place] [address] XRay Report Signed Patient: Armin Kam MR#: [id number] 983 : 1940 Acct:[id number] Age/Sex: 84 / F ADM Date: 09/06/24 Loc: .S3 352-[address]: Pj Choudhary MD Ordering Physician: Isabela Lopez MD Date of Service: 09/10/24 Procedure(s): XR KUB Accession Number(s): [id number] cc: Vito Joel MD; Isabela Lopez MD [...] 09/10/24 1249 DD/ 1248 TD/TT: 09/10/24 1248 Paper Goods Machine Operator: Complete Blood Count no Diff Reviewed date:09/11/2024 12:49:09 PM Interpretation: Performing Lab:[facility], [address] [place] [phone] Notes/Report: White Blood Count 14.1 4.8-10.8 X10*3/uL [...] Panel Reviewed date:09/11/2024 12:46:20 PM Interpretation: Performing Lab:[facility], [address] [place] [phone] Notes/Report: Sodium 143 135-145 mmol/L Potassium 3.0 [...] Electrolytes Reviewed date:09/12/2024 12:25:43 PM Interpretation: Performing Lab:[facility], [address] [place] [phone] Notes/Report: Sodium 143 135-145 mmol/L Potassium 3.4 3.3-5.1 mmol/L Chloride 105 96-108 mmol/L Carbon Dioxide 30 22-29 mmol/L Anion Gap 11 12-20 Phosphorus Reviewed date:09/11/2024 12:46:12 PM Interpretation: Performing Lab:[facility], [address] [place] [phone] Notes/Report: Phosphorus 2.8 2.7-4.5 mg/dL Magnesium Reviewed date:09/11/2024 12:46:04 PM Interpretation: Performing Lab:[facility], [address] [place] [phone] Notes/Report: Magnesium 2.4 1.6-2.6 mg/dL Albumin Level Reviewed date:09/11/2024 12:45:57 PM Interpretation: Performing Lab:[facility], [address] [place] [phone] Notes/Report: Albumin Level 2.8 3.5-5.0 g/dL Triglycerides Reviewed date:09/11/2024 12:45:50 PM Interpretation: Performing Lab:[facility], [address] [place] [phone] Notes/Report: Triglycerides 117 <150 mg/dL Desirable Triglyceride: less than 150 mg/dL Borderline High Triglyceride 150-199 mg/dL High Triglyceride: 200-499 mg/dL Very High Triglyceride: greater than or equal to 5OO mg/dL Hold Green Gel Reviewed date:09/11/2024 06:02:58 PM Interpretation: Performing Lab:[facility], [address] [place] [phone] Notes/Report: Hold Green Gel See Note Specimen held untested for 24 hours; Call to request Chemistry testing. Complete Blood Count no Diff Reviewed date:09/12/2024 01:55:00 PM Interpretation: Performing Lab:[facility], [address] [place] [phone] Notes/Report: White Blood Count 10.9 4.8-10.8 X10*3/uL [...] Panel Reviewed date:09/12/2024 12:38:34 PM Interpretation: Performing Lab:[facility], [address] [place] [phone] Notes/Report: Sodium 142 135-145 mmol/L Potassium 3.6 [...] Phosphorus Reviewed date:09/12/2024 12:20:25 PM Interpretation: Performing Lab:[facility], [address] [place] [address] Notes/Report: Phosphorus 1.6 2.7-4.5 mg/dL Magnesium Reviewed date:09/12/2024 12:19:46 PM Interpretation: Performing Lab:[facility], [address] [place] [phone] Notes/Report: Magnesium 2.4 1.6-2.6 mg/dL Albumin Level Reviewed date:09/12/2024 12:15:39 PM Interpretation: Performing Lab:[facility], [address] [place] [phone] Notes/Report: Albumin Level 2.6 3.5-5.0 g/dL Glucose, Whole Blood Reviewed date:09/12/2024 12:15:20 PM Interpretation: Performing Lab:[facility], [address] [place] [phone] Notes/Report: Glucose, Whole Blood 142 60-115 mg/dL METER # : [id number] Glucose, Whole Blood Reviewed date:09/13/2024 07:01:40 PM Interpretation: Performing Lab:[facility], [address] [place] [phone] Notes/Report: Glucose, Whole Blood 120 60-115 mg/dL METER # : [id number] Glucose, Whole Blood Reviewed date:09/13/2024 07:01:40 PM Interpretation: Performing Lab:[facility], [address] [place] [phone] Notes/Report: Glucose, Whole Blood 123 60-115 mg/dL METER # : [id number] Complete Blood Count no Diff Reviewed date:09/13/2024 07:01:40 PM Interpretation: Performing Lab:[facility], [address] [place] [phone] Notes/Report: White Blood Count 9.9 4.8-10.8 X10*3/uL [...] Panel Reviewed date:09/13/2024 07:01:40 PM Interpretation: Performing Lab:[facility], [address] [place] [phone] Notes/Report: Sodium 140 135-145 mmol/L Potassium 3.8 [...] Phosphorus Reviewed date:09/13/2024 07:01:40 PM Interpretation: Performing Lab:[facility], [address] [place] [phone] Notes/Report: Phosphorus 3.3 2.7-4.5 mg/dL Magnesium Reviewed date:09/13/2024 07:01:40 PM Interpretation: Performing Lab:[facility], [address] [place] [address] Notes/Report: Magnesium 2.3 1.6-2.6 mg/dL Albumin Level Reviewed date:09/13/2024 07:01:40 PM Interpretation: Performing Lab:[facility], [address] [place] [phone] Notes/Report: Albumin Level 2.5 3.5-5.0 g/dL Glucose, Whole Blood Reviewed date:09/13/2024 07:01:40 PM Interpretation: Performing Lab:[facility], [address] [place] [phone] Notes/Report: Glucose, Whole Blood 147 60-115 mg/dL METER # : [id number] XR chest 1V Reviewed date:09/14/2024 12:39:53 PM Interpretation: Performing Lab: Notes/Report: [address] [place] [address] XRay Report Signed Patient: Maria Ines Kam MR#: [id number] 983 : 1940 Acct:[id number] Age/Sex: 84 / F ADM Date: 09/06/24 Loc: .S3 352-[address]: Kavon Burnham MD Ordering Physician: Jesus Galaviz MD Date of Service: 09/13/24 Procedure(s): XR chest 1V Accession Number(s): [id number] cc: Vito Joel MD; Jesus Galaviz MD [...] by Hilton Phillip MD in OV> 09/13/24 2346 DD/ 26 TD/TT: 09/13/242326 Paper Goods Machine Operator: [facility] [address] [place] [address]. [place] [address] XRay Report Signed Patient: Armin Kam MR#: [id number] 983 : 1940 Acct:[id number] Age/Sex: 84 / F ADM Date: 09/06/24 Loc: [facility] 352-[address]: Xavier Burnham MD Ordering Physician: Jesus Galaviz MD Date of Service: 09/13/24 Procedure(s): XR jose st 1V Accession Number(s): [id number] cc: Vito Joel MD; Jesus Galaviz MD [...] in OV> 09/13/242327 DD/ 26 TD/TT: 09/13/242326 Paper Goods Machine Operator: Glucose, Whole Blood Reviewed date:09/13/2024 07:01:40 PM Interpretation: Performing Lab:[facility], [address] [place] [phone] Notes/Report: Glucose, Whole Blood 142 60-115 mg/dL METER # : [id number] Glucose, Whole Blood Reviewed date:09/13/2024 07:01:40 PM Interpretation: Performing Lab:[facility], [address] [place] [address] Notes/Report: Glucose, Whole Blood 111 60-115 mg/dL METER # : [id number] Glucose, Whole Blood Reviewed date:09/14/2024 12:39:53 PM Interpretation: Performing Lab:[facility], [address] [place] [phone] Notes/Report: Glucose, Whole Blood 123 60-115 mg/dL METER # : [id number] XR chest 1V Reviewed date:09/14/2024 12:39:53 PM Interpretation: Performing Lab: Notes/Report: [address] [address] XRay Report Signed Patient: Maria Ines Kam MR#: [id number] 983 : 1940 Acct:[id number] Age/Sex: 84 / F ADM Date: 09/06/24 Loc: S3 352-[address]: Kavon Burnham MD Ordering Physician: Jesus Galaviz MD Date of Service: 09/13/24 Procedure(s): XR chest 1V Accession Number(s): [id number] cc: Vito Joel MD; Jesus Galaviz MD [...] 09/13/24 2343 DD/ 2341 TD/TT: 09/13/24 2341 Paper Goods Machine Operator: [address] [address] XRay Report Signed Patient: Armin Kam MR#: [id number] 983 : 1940 Acct:[id number] Age/Sex: 84 / F ADM Date: 09/06/24 Loc: [facility] 352-[address]: Xavier Burnham MD Ordering Physician: Jesus Galaviz MD Date of Service: 09/13/24 Procedure(s): XR jose st 1V Accession Number(s): [id number] cc: Vito Joel MD; Jesus Galaviz MD [...] in OV> 09/13/242342 DD/ 40 TD/TT: 09/13/242340 Paper Goods Machine Operator: Complete Blood Count no Diff Reviewed date:09/14/2024 12:39:53 PM Interpretation: Performing Lab:[facility], [address] [place] [phone] Notes/Report: White Blood Count 11.0 4.8-10.8 X10*3/uL [...] Panel Reviewed date:09/14/2024 12:39:53 PM Interpretation: Performing Lab:[facility], [address] [place] [phone] Notes/Report: Sodium 140 135-145 mmol/L Potassium 4.3 [...] Phosphorus Reviewed date:09/14/2024 12:39:53 PM Interpretation: Performing Lab:[facility], [address] [place] [phone] Notes/Report: Phosphorus 4.0 2.7-4.5 mg/dL Magnesium Reviewed date:09/14/2024 12:39:53 PM Interpretation: Performing Lab:[facility], [address] [place] [phone] Notes/Report: Magnesium 2.3 1.6-2.6 mg/dL Albumin Level Reviewed date:09/14/2024 12:39:53 PM Interpretation: Performing Lab:[facility], [address] [place] [phone] Notes/Report: Albumin Level 2.7 3.5-5.0 g/dL Glucose, Whole Blood Reviewed date:09/14/2024 12:39:53 PM Interpretation: Performing Lab:[facility], [address] [place] [phone] Notes/Report: Glucose, Whole Blood 133 60-115 mg/dL METER # : [id number] Glucose, Whole Blood Reviewed date:09/14/2024 12:36:25 PM Interpretation: Performing Lab:[facility], [address] [place] [phone] Notes/Report: Glucose, Whole Blood 117 60-115 mg/dL METER # : [id number] Glucose, Whole Blood Reviewed date:09/15/2024 09:58:24 AM Interpretation: Performing Lab:[facility], [address] [place] [phone] Notes/Report: Glucose, Whole Blood 113 60-115 mg/dL METER # : [id number] Glucose, Whole Blood Reviewed date:09/15/2024 12:23:20 PM Interpretation: Performing Lab:[facility], [address] [place] [phone] Notes/Report: Glucose, Whole Blood 126 60-115 mg/dL METER # : [id number] Comprehensive Met. Panel Reviewed date:09/15/2024 12:23:19 PM Interpretation: Performing Lab:[facility], [address] [place] [phone] Notes/Report: Sodium 139 135-145 mmol/L Potassium 4.5 [...] Panel Reviewed date:09/15/2024 12:23:19 PM Interpretation: Performing Lab:[facility], [address] [place] [phone] Notes/Report: Sodium 140 135-145 mmol/L Potassium 4.7 [...] Phosphorus Reviewed date:09/15/2024 12:23:19 PM Interpretation: Performing Lab:[facility], [address] [place] [phone] Notes/Report: Phosphorus 4.0 2.7-4.5 mg/dL Magnesium Reviewed date:09/15/2024 12:23:19 PM Interpretation: Performing Lab:[facility], [address] [place] [phone] Notes/Report: Magnesium 2.3 1.6-2.6 mg/dL Albumin Level Reviewed date:09/15/2024 12:23:20 PM Interpretation: Performing Lab:[facility], [address] [place] [phone] Notes/Report: Albumin Level 2.8 3.5-5.0 g/dL Glucose, Whole Blood Reviewed date:09/15/2024 12:23:20 PM Interpretation: Performing Lab:[facility], [address] [place] [phone] Notes/Report: Glucose, Whole Blood 136 60-115 mg/dL METER # : [id number] Glucose, Whole Blood Reviewed date:09/15/2024 12:44:30 PM Interpretation: Performing Lab:[facility], [address] [place] [phone] Notes/Report: Glucose, Whole Blood 119 60-115 mg/dL METER # : [id number] Glucose, Whole Blood Reviewed date:09/17/2024 05:17:50 PM Interpretation: Performing Lab:[facility], [address] [place] [phone] Notes/Report: Glucose, Whole Blood 93 60-115 mg/dL METER # : [id number] Glucose, Whole Blood Reviewed date:09/17/2024 05:17:50 PM Interpretation: Performing Lab:[facility], [address] [place] [phone] Notes/Report: Glucose, Whole Blood 131 60-115 mg/dL METER # : [id number] Basic Metabolic Panel Reviewed date:09/17/2024 05:17:50 PM Interpretation: Performing Lab:[facility], [address] [place] [phone] Notes/Report: Sodium 140 135-145 mmol/L Potassium 4.2 [...] Phosphorus Reviewed date:09/17/2024 05:17:50 PM Interpretation: Performing Lab:[facility], [address] [place] [phone] Notes/Report: Phosphorus 3.6 2.7-4.5 mg/dL Magnesium Reviewed date:09/17/2024 05:17:50 PM Interpretation: Performing Lab:[facility], [address] [place] [phone] Notes/Report: Magnesium 2.3 1.6-2.6 mg/dL Albumin Level Reviewed date:09/17/2024 05:17:50 PM Interpretation: Performing Lab:[facility], [address] [place] [phone] Notes/Report: Albumin Level 2.9 3.5-5.0 g/dL Glucose, Whole Blood Reviewed date:09/17/2024 05:17:50 PM Interpretation: Performing Lab:[facility], [address] [place] [phone] Notes/Report: Glucose, Whole Blood 126 60-115 mg/dL METER # : [id number] Glucose, Whole Blood Reviewed date:09/17/2024 05:17:50 PM Interpretation: Performing Lab:[facility], [address] [place] [phone] Notes/Report: Glucose, Whole Blood 133 60-115 mg/dL METER # : [id number] Glucose, Whole Blood Reviewed date:09/17/2024 05:17:50 PM Interpretation: Performing Lab:[facility], [address] [place] [phone] Notes/Report: Glucose, Whole Blood 137 60-115 mg/dL METER # : [id number] Glucose, Whole Blood Reviewed date:09/17/2024 05:17:50 PM Interpretation: Performing Lab:[facility], [address] [place] [phone] Notes/Report: Glucose, Whole Blood 131 60-115 mg/dL METER # : [id number] Basic Metabolic Panel Reviewed date:09/17/2024 05:17:50 PM Interpretation: Performing Lab:[facility], [address] [place] [phone] Notes/Report: Sodium 140 135-145 mmol/L Potassium 4.4 [...] Phosphorus Reviewed date:09/17/2024 05:17:50 PM Interpretation: Performing Lab:[facility], [address] [place] [phone] Notes/Report: Phosphorus 3.6 2.7-4.5 mg/dL Magnesium Reviewed date:09/17/2024 05:17:50 PM Interpretation: Performing Lab:[facility], [address] [place] [phone] Notes/Report: Magnesium 2.1 1.6-2.6 mg/dL Albumin Level Reviewed date:09/17/2024 05:17:50 PM Interpretation: Performing Lab:[facility], [address] [place] [phone] Notes/Report: Albumin Level 2.9 3.5-5.0 g/dL Glucose, Whole Blood Reviewed date:09/17/2024 05:17:50 PM Interpretation: Performing Lab:[facility], [address] [place] [phone] Notes/Report: Glucose, Whole Blood 126 60-115 mg/dL METER # : [id number] Glucose, Whole Blood Reviewed date:09/17/2024 05:17:50 PM Interpretation: Performing Lab:[facility], [address] [place] [phone] Notes/Report: Glucose, Whole Blood 100 60-115 mg/dL METER # : [id number] Glucose, Whole Blood Reviewed date:09/18/2024 12:00:44 PM Interpretation: Performing Lab:[facility], [address] [place] [phone] Notes/Report: Glucose, Whole Blood 111 60-115 mg/dL METER # : [id number] Glucose, Whole Blood Reviewed date:09/18/2024 12:00:44 PM Interpretation: Performing Lab:[facility], [address] [place] [phone] Notes/Report: Glucose, Whole Blood 111 60-115 mg/dL METER # : [id number] Hold Lav - Possible Hematolo gy Reviewed date:09/18/2024 12:00:44 PM Interpretation: Performing Lab:[facility], [address] [place] [phone] Notes/Report: Hold Lav - Possible Hematology SEE NOTE Specimen will be held untested for 8 hours. Call Hematology if testing is desired. Basic Metabolic Panel Reviewed date:09/18/2024 12:00:44 PM Interpretation: Performing Lab:[facility], [address] [place] [phone] Notes/Report: Sodium 136 135-145 mmol/L Potassium 4.4 [...] Phosphorus Reviewed date:09/18/2024 12:00:44 PM Interpretation: Performing Lab:[facility], [address] [place] [phone] Notes/Report: Phosphorus 3.3 2.7-4.5 mg/dL Magnesium Reviewed date:09/18/2024 12:00:44 PM Interpretation: Performing Lab:[facility], [address] [place] [phone] Notes/Report: Magnesium 2.1 1.6-2.6 mg/dL Albumin Level Reviewed date:09/18/2024 12:00:05 PM Interpretation: Performing Lab:[facility], [address] [place] [phone] Notes/Report: Albumin Level 2.7 3.5-5.0 g/dL Triglycerides Reviewed date:09/18/2024 12:00:44 PM Interpretation: Performing Lab:[facility], [address] [place] [phone] Notes/Report: Triglycerides 241 <150 mg/dL Desirable Triglyceride: less than 150 mg/dL Borderline High Triglyceride 150-199 mg/dL High Triglyceride: 200-499 mg/dL Very High Triglyceride: greater than or equal to 5OO mg/dL Glucose, Whole Blood Reviewed date:09/18/2024 12:00:44 PM Interpretation: Performing Lab:[facility], [address] [place] [phone] Notes/Report: Glucose, Whole Blood 137 60-115 mg/dL METER # : [id number] Glucose, Whole Blood Reviewed date:09/18/2024 12:08:03 PM Interpretation: Performing Lab:[facility], [address] [place] [phone] Notes/Report: Glucose, Whole Blood 139 60-115 mg/dL METER # : [id number] Glucose, Whole Blood Reviewed date:09/19/2024 10:03:03 AM Interpretation: Performing Lab:[facility], [address] [place] [phone] Notes/Report: Glucose, Whole Blood 120 60-115 mg/dL METER # : [id number] Glucose, Whole Blood Reviewed date:09/19/2024 10:03:03 AM Interpretation: Performing Lab:[facility], [address] [place] [phone] Notes/Report: Glucose, Whole Blood 110 60-115 mg/dL METER # : [id number] Hold Lav - Possible Hematolo gy Reviewed date:09/19/2024 10:03:03 AM Interpretation: Performing Lab:[facility], [address] [place] [phone] Notes/Report: Hold Lav - Possible Hematology SEE NOTE Specimen will be held untested for 8 hours. Call Hematology if testing is desired. Basic Metabolic Panel Reviewed date:09/19/2024 10:03:03 AM Interpretation: Performing Lab:[facility], [address] [place] [phone] Notes/Report: Sodium 133 135-145 mmol/L Potassium 4.1 [...] Phosphorus Reviewed date:09/19/2024 10:03:03 AM Interpretation: Performing Lab:[facility], [address] [place] [address] Notes/Report: Phosphorus 3.1 2.7-4.5 mg/dL Magnesium Reviewed date:09/19/2024 10:03:03 AM Interpretation: Performing Lab:[facility], [address] [place] [address] Notes/Report: Magnesium 1.9 1.6-2.6 mg/dL Albumin Level Reviewed date:09/19/2024 10:03:03 AM Interpretation: Performing Lab:[facility], [address] [place] [phone] Notes/Report: Albumin Level 2.6 3.5-5.0 g/dL Glucose, Whole Blood Reviewed date:09/19/2024 10:03:03 AM Interpretation: Performing Lab:[facility], [address] [place] [phone] Notes/Report: Glucose, Whole Blood 126 60-115 mg/dL METER # : [id number] Glucose, Whole Blood Reviewed date:09/19/2024 12:02:47 PM Interpretation: Performing Lab:[facility], [address] [place] [phone] Notes/Report: Glucose, Whole Blood 138 60-115 mg/dL METER # : [id number] Glucose, Whole Blood Reviewed date:09/20/2024 03:15:40 PM Interpretation: Performing Lab:[facility], [address] [place] [phone] Notes/Report: Glucose, Whole Blood 107 60-115 mg/dL METER # : [id number] Glucose, Whole Blood Reviewed date:09/20/2024 03:16:10 PM Interpretation: Performing Lab:[facility], [address] [place] [phone] Notes/Report: Glucose, Whole Blood 130 60-115 mg/dL METER # : [id number] Basic Metabolic Panel Reviewed date:09/20/2024 03:16:10 PM Interpretation: Performing Lab:[facility], [address] [place] [phone] Notes/Report: Sodium 134 135-145 mmol/L Potassium 3.8 [...] Phosphorus Reviewed date:09/20/2024 03:13:29 PM Interpretation: Performing Lab:[address] [address] Notes/Report: Phosphorus 3.1 2.7-4.5 mg/dL Magnesium Reviewed date:09/20/2024 03:13:21 PM Interpretation: Performing Lab:[address] [address] Notes/Report: Magnesium 1.9 1.6-2.6 mg/dL Albumin Level Reviewed date:09/20/2024 03:13:14 PM Interpretation: Performing Lab:[address] [address] Notes/Report: Albumin Level 2.8 3.5-5.0 g/dL Glucose, Whole Blood Reviewed date:09/20/2024 03:16:10 PM Interpretation: Performing Lab:[address] [address] Notes/Report: Glucose, Whole Blood 93 60-115 mg/dL METER # : [id number] CDiff Gene PCR Reviewed date:09/20/2024 03:13:07 PM Interpretation: Performing Lab:[address] [address] Notes/Report: CDiff Gene PCR NEGATIVE Negative If C. difficile strongly suspected despite one negative test, a second test may be sent vs. empiric treatment for C. difficile infection. Glucose, Whole Blood Reviewed date:09/20/2024 03:16:10 PM Interpretation: Performing Lab:[facility], [address] [place] [address] Notes/Report: Glucose, Whole Blood 96 60-115 mg/dL METER # : [id number] Glucose, Whole Blood Reviewed date:09/20/2024 03:16:09 PM Interpretation: Performing Lab:[facility], [address] [place] [address] Notes/Report: Glucose, Whole Blood 105 60-115 mg/dL METER # : [id number] US renal BI Reviewed date:11/06/2024 04:14:12 PM Interpretation: Performing Lab: Notes/Report: [facility] [address] [place] [address] [place] [address] Ultrasound Report Signed Patient: Maria Ines Kam MR#: [id number] 983 : 1940 Acct:[id number] Age/Sex: 84 / F ADM Date: 11/06/24 Loc: [facility] Attending Dr: Cyndy CHO Ordering Physician: Cyndy Washington Date of Service: 11/06/24 Procedure(s): US renal BI Accession Number(s): [id number] cc: Vito Joel MD; Cyndy Washington CLINICAL [...] 11/06/24 1310 DD/ 1309 TD/TT: 11/06/24 1309 Paper Goods Machine Operator: [facility] [address] [place] [address] Ultrasound Report Signed Patient: Armin Kam MR#: [id number] 983 : 1940 Acct:[id number] Age/Sex: 84 / F ADM Date: 11/06/24 Loc: [facility] Attending Dr: Cyndy catalan [facility] Ordering Physician: Cyndy Washington Date of Service: 11/06/24 Procedure(s): US summer Alfaro Accession Number(s): [id number] cc: Vito Joel MD; Cyndy Washington [facility] CLINICAL HISTORY: R3 1.29 - Other [...] 11/06/24 1310 DD/ 1309 TD/TT: 11/06/24 1309 Paper Goods Machine Operator: Silke Huffman Reviewed date:02/09/2025 04:39:48 PM Interpretation: Performing Lab:[facility], [address] [place] [phone] Notes/Report: Silke Huffman See Note Specimen held untested for 24 hours; Call to request Chemistry testing. Reason For Referral No Information Medications Medication SIG (Take, Route, Frequency, Duration) Notes Start Date End Date Status Nystatin-Triamcinolone 346721-9.1 UNIT/GM 1 application to affected area Externally [...] Administered pt was given the vaccine at [facility] in [place]. Fluarix Quadrivalent IM Intramuscular 03/28/2018 Administe red [...] Problem Status W/U Status Risk Notes Problem 563777922 Neuropathy (G62.9) Active confirmed Problem 52238457 Essential hypert ension (I10) Active confirmed Problem 1367632 Prediabetes (R73.09) Active confirmed Problem 884221275 History of seizu re disorder (Z86.69) Active confirmed Problem Diabetic autonomic neuropathy due to type 2 diabetes mellitus (139500260) Diabetic autonomic neuropathy associated with type 2 diabetes mellitus (E11.43) Active confirmed Problem 537813753 History of endom etrial cancer (Z85.42) Active confirmed Problem 584915594 Pure hypercholesterolemia (E78.00) Active confirmed Problem 528243555 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) Active confirmed Problem Intermittent spinal claudication (463529348) Intermittent spinal claudication (G95.19) Active confirmed Vital Signs Blood pressure diastolic 60 mm Hg 02/16/2025 Height 65.25 in 02/16/2025 Blood pressure systolic 132 mm Hg 02/16/2025 Weight 175 lbs 02/16/2025 BMI 28.9 kg/m2 02/16/2025 Encounters Encounter Location Date Provider Diagnosis Vito Joel MD [address] [place] [address] [id number] 07/06/2024 Vito Joel Blood tests for rout ine general physical examination Z00.00 ; Essential hypertension I10 ; Prediabetes R73.09 and Pure hypercholesterolemia E78.00 Vito Joel MD [address] [place] [address] Drive [address] [place] [address] [id number] 02/09/2025 Vito Joel Prediabetes R73.09 a nd Pure hypercholesterolemia E78.00 Vito Joel MD [address] [place] [address] Drive [address] [place] [address] [id number] 07/13/2024 Vito Joel Essential hypertensi on I10 ; Annual physical exam Z00.00 ; Pure hypercholesterolemia E78.00 ; 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 ; Diabetic autonomic neuropathy associated with type 2 diabetes mellitus E11.43 ; Colon cancer screening Z12.11 and Depression screening Z13.31 Vito Joel MD [address] [place] [address] Drive [address] [place] [address] [id number] 10/30/2024 Vito Joel Small bowel obstruct ion K56.609 and Essential hypertension I10 Vito Joel MD [address] [place] [address] [id number] 11/28/2024 Vito Joel Essential hypertensi on I10 and Leg edema R60.0 Vito Joel MD [address] [place] [address] [id number] 12/28/2024 Vito Joel Prediabetes R73.09 a nd Edema leg R60.0 Vito Joel MD [address] [place] [address] [id number] 02/16/2025 Vito Joel Essential hypertensi on I10 ; Prediabetes R73.09 and Pure hypercholesterolemia E78.00 Vito Joel MD [address] [place] [address] [id number] 06/13/2024 Vito Joel Essential hypertensi on I10 Vito Joel MD [address] [place] [address] [id number] 07/11/2024 Vito Joel MD [address] [place] [address] [id number] 09/07/2024 Vito Joel MD [address] [place] [address] [id number] 09/20/2024 Vito Joel MD [address] [place] [address] [id number] 10/06/2024 Vito Joel MD [address] [place] [address] [id number] 10/19/2024 Vito Joel MD [address] [place] [address] [id number] 11/10/2024 Vito Joel Essential hypertensi on I10 Vito Joel MD [address] [place] [address] [id number] 02/26/2025 Vito Joel Edema leg R60.0 Assessments [...] Details Provider Name:Vito arizar, 07/10/2025 08:00:00 AM, [address] [place] [address], [address], [phone], Provider Name:Vito Johnson ier, 07/17/2025 01:00:00 PM, [address] [place] [address], [place] [address], [place], [place], [phone], Insurance Providers Payer Name Payer Address Payer Phone Subscriber Number Group Number Insured Name Patient Relationship to Insured Coverage Start Date Coverage End Date [facility] P [facility] [employer] [id number] [place] [id number] Maria Ines Kam Self - patient is the insured Medical (General) History Medical History History ICD Code hysterectomy (2002) and oopherectomy endometrial cancer - 200211/24/2012 - refuses Colonsco py 2013; REFUSED COLONOSCOPY - DON'T ASK AGAIN 08/17/16 Prediabetes R73.09 Prediabetes undefined Surgical History Surgery Date(Month/Year) left hip replacement 07/2010 right hip replacement 07/1994
--- OUTSIDE RECORDS SUMMARY | 2025-05-30 16:49 | XMS_ITS | Data Portability ---
Author Organization [facility], Main Office Address [address], [address] [place] [address] Care Team Providers Care Supervisor Plastic Sheets Name Role Phone GENOV[facility] [place] OTHER Assessment Encounter Date Assessment Date Assessment LastModified by Organization Details LastModified Time 10/02/2024 10/02/2024 45 minutes spent on coordination of discharge. [email or web address] Not available 10/02/2024 09:59:54 Plan of Treatment [...] Organization Details Recorded Time Small bowel obstruction 980344777 Active 2024 s/p exp. lap. SWETHA HINOJOSA NP [address] , [address], [place], [address], [facility] [employer] 5 10:45:26 Inflammator y bowel disease 20340030 Active 2024 SWETHA HINOJOSA NP [address] , [address], [place], [address], [employer] [facility] 5 10:45:49 Imaging of liver abnormal 221431294 Active 2024 SWETHA HINOJOSA NP [address], [address], [place], [address], [facility] [employer] 5 10:46:01 Asthenia 70341448 Active 2024 SWETHA HINOJOSA NP [address], [place], [address], [facility] [employer] 5 10:46:07 Acute nontraumati c kidney injury 3399521176085 03 Active 2024 SWETHA HINOJOSA NP [address], [address], [place], [address], [facility] 5 10:46:20 Hypertensiv e disorder 87524282 Active 2024 SWETHA HINOJOSA NP [address], [address], [place], [address], [facility] 5 10:46:49 Hyperlipide ray 49803661 Active 2024 SWETHA HINOJOSA NP [address], [address], [place], [address], [employer] 5 10:46:57 Peripheral nerve disease 881499975 Active 2024 SWETHA HINOJOSA NP [address] [facility], [address], [place], [address], [employer] 5 10:47:10 Seizure disorder 370103832 Active 2024 SWETHA HINOJOSA NP [address] [facility], [address], [place], [address], [employer] 5 10:47:21 Chronic low back pain 400078131 Active 2024 SWETHA HINOJOSA NP [address] [facility], [address], [place], [address], [employer] 5 10:47:33 Endometrial carcinoma 694016021 Active 2024 h/o, s/p YVONNE BSO SWETHA HINOJOSA NP [address], [address], [place], [address], [employer] 5 10:48:17 Problem Notes None recorded. Medical Equipment None Reported. Allergies No known drug allergies Medications Not known to be on any medication Vitals Date Recorded Heart rate Respiratory rate Body temperature Oxygen saturation Systolic And Diastolic Provider Name and Address Organization Details Last Updated DateTime 5 75 /min 16 /min 97.6 [degF] 96 % 119/56 mm[Hg] SWETHA HINOJOSA NP [address] [facility], [address], [place], [address], [facility] 5 13:03:28 Date Recorded Heart rate Respiratory rate Body temperature Oxygen saturation Systolic And Diastolic Provider Name and Address Organization Details Last Updated DateTime 5 80 /min 18 /min 97.4 [degF] 97 % 152/75 mm[Hg] SWETHA HINOJOSA NP [address] [facility], [address], [place], [address], [facility] 5 10:32:33 Date Recorded Heart rate Respiratory rate Oxygen saturation Body temperature Systolic And Diastolic Provider Name and Address Organization Details Last Updated DateTime 5 81 /min 16 /min 96 % 97.5 [degF] 135/62 mm[Hg] SWETHA HINOJOSA NP [address] [facility], [address], [place], [address], [facility] 5 09:42:44 Social History Question Answer Notes LastModified by Organizat ion Details LastModified Time Tobacco Smoking Status Never Smoker SWETHA HINOJOSA NP [address] [facility], [address], [place], [address], [facility] 09/22/2024 09:43:54 What Is Your Code Status? DNR/DNI No Artificial Hydration [email or web address] Information not available 09/22/2024 Where Do You Live? [address] [place] [facility] [email or web address] Information not available 09/22/2024 What Was The Date Of Your Most Recent Tobacco Screening? 09/22/2024 Information not available 09/22/2024 Do You Have An Out Of Hospital DNR? Yes [email or web address] Information not available 09/22/2024 Have You Ever Been Counseled For Unhealthy Alcohol Use? No [email or web address] Information not available 09/22/2024 Has Tobacco Cessation Counseling Been Provided? No [email or web address] Information not available 09/22/2024 Sex: Unknown Functional Status Question Answer Note LastModified by Organizat ion Details LastModified Time Do you use any illicit or recreational drugs? No [email or web address] Information not available 09/22/2024 Do you or have you ever used any other forms of tobacco or nicotine? No [email or web address] Information not available 09/22/2024 What is your level of alcohol consumption? Occasional Information not available 09/22/2024 Mental Status None recorded. Family History Relationship Description Onset Age of this Age Resolved Age Notes LastModified by Organization Details LastModified Time Father No current problems or disability Not available 09/22 09:53:24 Mother No current problems or disability [email or web address] Not available 09/22 09:53:24 Notes:N/C Medical History No medical history recorded. Gynecological HistoryNo gynecological history recorded. Obstetrics History GPAL:G 0 P 0 0 0 0 Immunizations Vaccine Type Date Status Note Provider Nam e and Address Organization Details Recorded Time Respiratory syncytial virus (RSV) MAB, unspecified 4 completed Elmer Ruiz-Akbar [facility] 09/22/2024 13:20:54 Td(adult) unspecified formulation 8 completed Elmer Ruiz-Akbar [facility] 09/22/2024 13:21:05 pneumococcal polysaccharide PPV23 9 completed Elmer Ruiz-Akbar [facility] 09/22/2024 13:21:18 influenza, unspecified formulation 0 completed Elmer Joseph-Akbar [facility] 09/22/2024 13:21:45 influenza, unspecified formulation 1 completed Elmer Joseph-Akbar [facility] 09/22/2024 13:21:56 influenza, unspecified formulation 2 completed Elmer Ruiz-Akbar [facility] 09/22/2024 13:22:02 influenza, unspecified formulation 3 completed [facility]24 13:22:07 SARS-COV-2 (COVID-19) vaccine, UNSPECIFIED 1 completed [facility] 09/22/2024 13:22:22 SARS-COV-2 (COVID-19) vaccine, UNSPECIFIED 1 completed [facility] 09/22/2024 13:22:27 SARS-COV-2 (COVID-19) vaccine, UNSPECIFIED 1 completed Elmer Pedraza [facility], [facility] 09/22/2024 13:22:31 SARS-COV-2 (COVID-19) vaccine, UNSPECIFIED 2 completed Elmer Pedraza null, [facility] 09/22/2024 13:22:37 SARS-COV-2 (COVID-19) vaccine, UNSPECIFIED 2 completed Elmer Pedraza [facility], [facility] 09/22/2024 13:22:42 SARS-COV-2 (COVID-19) vaccine, UNSPECIFIED 3 completed Elmer Pedraza [facility] 09/22/2024 13:22:47 SARS-COV-2 (COVID-19) vaccine, UNSPECIFIED 3 completed lEmer TorresAkbar [facility] 09/22/2024 13:22:53 zoster, unspecified formulation 8 completed Elmer Pedraza [facility], [facility] 09/22/2024 13:23:07 zoster, unspecified formulation 8 completed [facility] Joseph-Akbar [facility] 09/22/2024 13:23:12 Past Encounters Encounter ID Performer Location Encounter Start Date Encounter Closed Date Diagnosis/Indication Diagnosis SNOMED-CT Code Diagnosis ICD10 Code Diagnosis IMO Codes Diagnosis Note [id number] SWETHA HINOJOSA NP [facility] [address] [place] [address] 09/22/2024 08:39:18 09/25/2024 16:16:37 Asthenia [id number] R53.1 Deconditio ross due to acute illness and hospitaliz ationPT OT eval and tx.Goal is to return home, monitor for increased needs/serv ices Small faby l obstruction 799317372 K56.609 Presented to [facility] with N/V/D and abd. painFailed conservati ve treatmentU nderwent exp. lap, willam. wellPost op complicati on of prolonged ileus, required PPNNow tolerating regular dietContin ue to monitor po, bowel status closelyTre nd labs, VS, pain, s/s blockage, incisionFo llow up with surgery as sched. Inflammato ry bowel disease 11740636 K52.9 Noted on abd. CTTreated with rocephin and flagylMoni tor GI sx, VS, labsFollow up with GI outpt. Imaging of liver abnormal 472347232 R93.2 Noted on abd. CTMonitor GI statusRefe r to GI as outpt. Acute nont raumatic kidney injury 4145600433 58258 N17.9 Stopped HCTZ/HIPOLITO IResponded well to IVFMonitor labsEncour age po fluidsAvoi d nephrotoxi cs Hypertensive disorder 38 714904 I10 HCTZ/ACEI stopped due to AKINow on norvasc 10 mg qd as well as lasix 20 mg qdMonitor VS, labs, adjust prn Hyperlipidemia 31779082 E78.5 Continue atorvastat in 80 mg qd Peripheral nerve disease 070815868 G64 APAP prn monitor Seizure disorder 5178741 02 G40.909 Continue carbamazep selma 200 mg bidMonitor sz. activity Chronic low back pain 27 8579836 M54.50 APAP prn Insomnia 834546864 G47.0 9 ?Trazodone 50 mg qd prn x 14 d on d/c med listWill continue for now, monitor use and effect. [id number] SWETHA HINOJOSA NP [facility] [address] [place] [address] 09/25/2024 09:05:12 09/27/2024 13:52:55 Asthenia [id number] R53.1 Deconditio ross due to acute illness and hospitaliz ationPT OT eval and tx.Goal is to return home, monitor for increased needs/serv ices Small faby l obstruction 501710823 K56.609 Presented to [facility] with N/V/D and abd. painFailed conservati ve treatmentU nderwent exp. lap, willam. wellPost op complicati on of prolonged ileus, required PPN Now tolerating regular diet, good appetiteMo ving bowels, monitor closelyTre nd labs, VS, pain, s/s blockage, incisionFo llow up with surgery as sched.CBC, BMP in am Inflammato ry bowel disease 26376621 K52.9 Noted on abd. CTTreated with rocephin and flagylMoni tor GI sx, VS, labsFollow up with GI outpt. Imaging of liver abnormal 977869276 R93.2 Noted on abd. CTMonitor GI statusRefe r to GI as outpt. Acute nont raumatic kidney injury 8531847537 33622 N17.9 Stopped HCTZ/HIPOLITO IResponded well to IVFMonitor labs - BMP in amEncourag e po fluidsAvoi d nephrotoxi cs Hypertensive disorder 38 206283 I10 VSSHCTZ/AC EI stopped due to AKINow on norvasc 10 mg qd as well as lasix 20 mg qdMonitor VS, labs, adjust prnBMP in am Hyperlipidemia 88880380 E78.5 Continue atorvastat in 80 mg qd Peripheral nerve disease 810981067 G64 APAP prn monitor Seizure disorder 5882233 02 G40.909 Continue carbamazep selma 200 mg bidMonitor sz. activity Chronic low back pain 27 2821303 M54.50 APAP prn Insomnia 471947652 G47.0 9 ?Trazodone 50 mg qd prn x 14 d on d/c med listWill continue for now, monitor use and effect. [id number] SWETHA HINOJOSA NP [facility] [address] [place] [address] 09/27/2024 10:30:52 10/02/2024 16:03:03 Asthenia [id number] R53.1 Deconditio ross due to acute illness and hospitaliz ationPT OT eval and tx., making gains, hopeful to return home for increased needs/serv ices Small faby l obstruction 667760361 K56.609 Presented to [facility] with N/V/D and abd. painFailed conservati ve treatmentU nderwent exp. lap, willam. wellPost op complicati on of prolonged ileus, required PPN Now tolerating regular diet, good appetiteMo ving bowels, monitor closelyTre nd labs, VS, pain, s/s blockage, incisionFo llow up with surgery as sched. 10/12 Inflammato ry bowel disease 13392238 K52.9 Noted on abd. CTTreated with rocephin and flagylMoni tor GI sx, VS, labsFollow up with GI outpt. Imaging of liver abnormal 493718888 R93.2 Noted on abd. CTMonitor GI statusRefe r to GI as outpt. Acute nont raumatic kidney injury 5169097911 68610 N17.9 Stopped HCTZ/HIPOLITO IResponded well to IVFLabs currently stable, but will be increasing lasix due to increased peripheral edemaMaint ain po fluidsAvoi d nephrotoxi csBMP wednesday Hypertensive disorder 38 828708 I10 VSSHCTZ/AC EI stopped due to AKINow on norvasc 10 mg qd as well as lasix 20 mg qd (increasin g to 40 mg qd due to worsening edema) tor VS, labs, adjust prnBMP Wednesday Hyperlipidemia 06052147 E78.5 Continue atorvastat in 80 mg qd Peripheral nerve disease 883861618 G64 APAP prn monitor Seizure disorder 2954937 02 G40.909 Continue carbamazep selma 200 mg bidMonitor sz. activity Chronic low back pain 27 4528621 M54.50 APAP prn Insomnia 893155744 G47.0 9 ?Trazodone 50 mg qd prn x 14 d on d/c med listWill continue for now, monitor use and effect. Edema of l ower extremity 249433252 R60.0 Newer, increasing , no pain.Spend ing more time OOBMeds reviewed, is on lasix 20 mg qd as well as norvasc 10 mg qd (both new, was on HCTZ/ACEI prior to hosp. but stopped due to AGUILAR) Plan -Encourage :Elevation Protein intakeActi vityAdd tubigrip toes -> knees qam, off qpmIncreas e lasix to 40 mg qdBMP wednesday (as planning Wed. d/c) [id number] Yusuf Awad MD [facility] [address] [place], [place] [address] 09/30/2024 09:00:49 10/02/2024 16:09:53 Asthenia [id number] R53.1 PT OT Eval and treatmonit or fall risk and need for increased support in community Edema of l ower extremity 042372838 R60.0 now on lasix 20 mg qdmonitor sx control and renal function with recent ARFmay decreased or DC norvasc if not improved Small faby l obstruction 924573877 K56.690 see HPIs/p exp lap complicate d by ileusfollo w surgery recs and update for concernsmo nitor out put and need to adjust diet Inflammato ry bowel disease 79929745 K51.818 carrying dx of IBScovered with rocephin and flagyl in hospitalco ordinate with GImonitor sx Imaging of liver abnormal 922394017 R93.2 concern for cirrhosisf /u with GI in place Acute nont raumatic kidney injury 6189436695 69719 N17.8 HCTZ and HIPOLITO-I d/c'edimpr milana with IVFmonitor renal function now on lasix Hypertensive disorder 38 719474 I10 see abovemonit or bp and need to titrate now on norvasc and lasix Peripheral nerve disease 516527773 G64 carrying dx added to PMHmonitor need for gabapentin Seizure disorder 6889479 02 G40.89 carbamazep ine 200 mg bidmonitor for seizure activity Chronic low back pain 27 1724191 M54.59 controlled with tylenol [id number] SWETHA HINOJOSA NP [facility] [address] [place] [address] 10/02/2024 08:55:20 10/09/2024 09:55:31 Asthenia [id number] R53.1 Deconditio ross due to acute illness and hospitaliz ation.She has been working with PT OT - meeting goals for d/c home today with services.M onitor need for increased services Edema of l ower extremity 390355034 R60.0 Newer issue while here.Spend ing more [...] qam, off qpm Small faby l obstruction 728058487 K56.609 Presented to [facility] with N/V/D and abd. painFailed conservati ve treatmentU nderwent exp. lap, willam. wellPost op complicati on of prolonged ileus, required PPN Now tolerating regular diet, good appetiteMo ving bowels, monitor closelySta ples out, incision healing well.Trend labs, VS, pain, s/s blockage, incisionFo llow up with surgery as sched. 10/12 Inflammato ry bowel disease 77572871 K52.9 Noted on abd. CTTreated with rocephin and flagylNo GI concerns while hereMonito r GI sx, VS, labs as outptFollo w up with GI outpt. Imaging of liver abnormal 691343752 R93.2 Noted on abd. CTMonitor GI statusRefe r to GI as outpt. Acute nont raumatic kidney injury 5925107430 40098 N17.9 Stopped HCTZ/HIPOLITO IResponded well to IVFCurrent ly on Lasix 20 mg qdLabs stableMain tain po fluidsAvoi d nephrotoxi csMonitor labs outpt. Hypertensive disorder 38 669443 I10 VSSHCTZ/AC EI stopped in hosp. due to AKIStarted norvasc 10 mg qd as well as lasix 20 mg qdMonitor VS, labs as outpt., adjust prn Hyperlipidemia 48198989 E78.5 Continue atorvastat in 80 mg qd Peripheral nerve disease 158237845 G64 APAP prn monitor Seizure disorder 2736349 02 G40.909 Continue carbamazep selma 200 mg bidMonitor sz. activity as outpt. Chronic low back pain 27 6862838 M54.50 APAP prn Insomnia 026700343 G47.0 9 ?Trazodone 50 mg qd prn [...] ID Guarantor Name 10/09/2024 1 KINGSTON (O) [id number] Maria Ines Kam [id number] Maria Ines Kam Notes Date Note Type Note Provider Name and Address Organization Details Recorded Time 09/22/2024 text/html Maria Ines is seen today for initial intake. She is an 84 yo lady, admitted to [facility] 09/20/24 from [facility] for continued care and rehab after a brief hosp. due to SBO, ileus, AGUILAR. She presented to [facility] 09/06 with N/V/D and abdominal pain.In ER, [...] disorder SWETHA HINOJOSA, MARIA DE JESUS [address] [facility], [address], [place], [address], [facility] 09/22/2024 10:58:43 09/25/2024 text/html Maria Ines is seen today for an acute visit. She is an 84 yo lady, admitted to [facility] 09/20/24 from [facility] for continued care and rehab after a brief hosp. due to SBO, ileus, AGUILAR. She presented to [facility] 09/06 with N/V/D and abdominal pain.Abd. CT [...] disorder SWETHA HINOJOSA, MARIA DE JESUS [address] [facility], [address], [place], [address], [facility] [employer] [facility] 09/25/2024 13:14:46 09/27/2024 text/html Maria Ines is seen today for an acute visit. She is an 84 yo lady, admitted to [facility] 09/20/24 from [facility] for continued care and rehab after a brief hosp. due to SBO, ileus, AGUILAR. She presented to [facility] 09/06 with N/V/D and abdominal pain.Abd. CT [...] claudication, seizure disorder SWETHA HINOJOSA NP [address] [facility], [address], [place], [address], [facility] 09/27/2024 10:51:49 09/30/2024 text/html Patient is [...] care and therapy Yusuf Awad MD [address] [facility], [address], [place], [address], [facility] 09/30/2024 09:21:01 10/02/2024 text/html Maria Ines is seen today for discharge.She is returning home today with the support of services. She is an 84 yo lady, admitted to [facility] 09/20/24 from [facility] for continued care and rehab after a brief hosp. due to SBO, ileus, AGUILAR. She presented to [facility] 09/06 with N/V/D and abdominal pain.Abd. CT [...] claudication, seizure disorder SWETHA HINOJOSA NP [address] [facility], [address], [place], [address], [facility] - [employer] 10/02/2024 10:00:08 OBGyn Episode No OBEpisode recorded.
--- OUTSIDE RECORDS SUMMARY | 2025-05-30 16:50 | XMS_ITS | Patient Health Record ---
Author Organization [facility] Godfrey jelly Ryan Address [address] [place] [address] Care Team Providers Care Instrumentation Engineering Technician Name Role Phone Vito Joel MD Primary Care Provider Irais Mcghee Unavailable [phone] Allergies No Known Allergies Reason For Referral [...] W/U Status Risk Notes Problem Tinea unguium (366764199) Tinea unguium (B35.1) Active confirmed Vital Signs Blood pressure diastolic 72 mm Hg 05/07/2025 Height 5 ft 5 in in 05/07/2025 Blood pressure systolic 120 mm Hg 05/07/2025 Weight 175 lbs 05/07/2025 BMI 29.12 kg/m2 05/07/2025 Procedures Procedure Date Ordered Date Performed Result Body Sit e 66727-HEPCFUJ NAIL, 6 OR MORE 07/13/2024 N/A 95832 I&D ABSCESS- SIMPLE,SINGLE 07/13/2024 N/A 57698-[id number] NAIL, 6 OR MORE 11/06/2024 N/A 04691-[id number] NAIL, 6 OR MORE 05/07/2025 N/A Encounters Encounter Location Date Provider Diagnosis [address] [address] 07/13/2024 Irais Black Pain in right foot [...] M79.675 and Abscess of toe, left L02.[address] [address] 11/06/2024 Irais Black Tinea unguium B35.1 ; Pain in right toe(s) M79.674 and Pain in left toe(s) M79.[address] [address] 05/07/2025 Irais Black Tinea unguium B35.1 ; Pain in right toe(s) M79.674 and Pain in left toe(s) M79.[address] [facility] [place] [address] 03/06/2025 [facility] [place] [address] [place] [address] 05/07/2025 Irais Prieto [facility] Encounter Date Diagnosis (ICD Code) Assessment [...] Treatment Pending Test Test Name Order Date 26876-UBRSHID NAIL, 6 OR MORE 11/08/2023 [id number] NAIL, 6 OR MORE 03/13/2024 90861-[id number] NAIL, 6 OR MORE 07/13/2024 07910-[id number] NAIL, 6 OR MORE 11/06/2024 [id number] NAIL, 6 OR MORE 05/07/2025 16486 I&D ABSCESS- SIMPLE,SINGLE 025 Next Appt Details Provider Name:Irais Prieto , 09/10/2025 10:30:00 AM, [address] [place], [address], Insurance Providers Payer Name Payer Address Payer Phone Subscriber Number Group Number Insured Name Patient Relationship to Insured Coverage Start Date Coverage End Date [facility] ([facility]) [address] [place] [address] [id number] Maria Ines Kam Self - patient [...] Date(Month/Year) historectomy left and right hip replacement [id number] 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
== END 2025-05-30 14:23 | disposition home or self-care (01) ==
LOC: HO.HOS 13:43
PROVIDERS: PCP Internal Medicine
DX: S62.310A Displaced fracture of base of second metacarpal bone, right hand, initial encounter for closed fracture (principal); S62.312A Displaced fracture of base of third metacarpal bone, right hand, initial encounter for closed fracture
CPT/HCPCS: 29125; 99213

== ENCOUNTER → 2025-05-30 13:43 | Outpatient (BNVA) | payer OTHER, SELFPAY | PROVIDERS: PCP Internal Medicine | DX: S62.312D Displaced fracture of base of third metacarpal bone, right hand, subsequent encounter for fracture with routine healing (principal); S62.310D Displaced fracture of base of second metacarpal bone, right hand, subsequent encounter for fracture with routine healing | CPT/HCPCS: 29125 ==

== ENCOUNTER 2025-06-04 09:48 | Day surgery (SDC) | payer OTHER, SELFPAY ==
--- OUTSIDE RECORDS SUMMARY | 2023-12-21 04:30 | XMS_ITS ---
Author Organization [facility] Address [address] [place] [address] Care Team Providers Care Supervisor Blueprinting And Photocopy Name Role Phone Vito Joel MD Primary Care Provider Horace Irais Sunshine Unavailable [phone] Gerald Alan Unavailable [phone] REASON FOR VISIT wrong patient Encounters Encounter Location Date Provider Diagnosis [address] [address] 12/21/2023 Gerald Alan Plan Of Treatment Next Appt Details Provider Name:Irais Prieto , 09/10/2025 10:30:00 AM, [address] [place], [address], Progress Notes * KAMMaria Ines ADOB:[birth year] (85 yo F)Acc No.[id number]:12/21/2023 Progress Notes Patient: Maria Ines ALFONSO Provider: Ophelia Alan DPM :1940 A ge:83 Y S ex:Female Date:12/21/2023 Address: [address] [place], [place] Pcp:Vito Joel MD Subjective: * Chief Complaints: [...] 12/21/2023 Generated for Chey winslow/Sofie/Ez on: 1 07/29/2024 12:54 PM EST
--- OUTSIDE RECORDS SUMMARY | 2024-09-20 15:31 | XMS_ITS ---
Author Organization Vito Joel MD Address [address] [place] [address] [phone] Care Team Providers Care Forge Helper Name Role Phone Vito Joel Primary Care Provider REASON FOR VISIT discharge Encounters Encounter Location Date Provider Diagnosis Vito Joel MD 10 [facility] [address] [place] [address] [phone] 09/20/2024 Vito Joel Plan Of Treatment Next Appt Details Provider Name:Vito Johnson ier, 07/10/2025 08:00:00 AM, [address] [place] [address], [address], [phone], Provider Name:Vito Johnson ier, 07/17/2025 01:00:00 PM, [address] [place] [address], [address] [place] [address], [phone], Progress Notes * Maria Ines KAM ADOB:[birth year] (84 yo F)Acc No.[id number]:09/20/2024 Patient: Isacc Maria Ines MORTENSEN :1940 A ge:84 Y S ex:Female Address:[address] [place] [address] * true * Date: Generated for Cehy winslow/Sofie/Ez on: 07/29/2024 12:52 PM EST
--- OUTSIDE RECORDS SUMMARY | 2024-10-06 04:41 | XMS_ITS ---
Author Organization Vito Joel MD Address [address] [place] [address] [phone] Care Team Providers Care Plaster Model And Mold Maker Name Role Phone Vito Joel Primary Care Provider REASON FOR VISIT FYI Encounters Encounter Location Date Provider Diagnosis Vito Joel MD 10 [facility] [address] [place] [address] [phone] 10/06/2024 Vito Joel Plan Of Treatment Next Appt Details Provider Name:Vito Johnson ier, 07/10/2025 08:00:00 AM, [address] [place] [address], [address], [phone], Provider Name:Vito Johnson ier, 07/17/2025 01:00:00 PM, [address] [place] [address], [address] [place] [address], [phone], Progress Notes * Maria Ines KAM ADOB:[birth year] (84 yo F)Acc No.[id number]:10/06/2024 Patient: Isacc SHANNANPLACIDOMaria Ines :1940 A ge:84 Y S ex:Female Address:[place] [address] * true * Date: Generated for Chey winslow/Sofie/Ez on: 07/29/2024 12:54 PM EST
--- OUTSIDE RECORDS SUMMARY | 2024-10-19 04:28 | XMS_ITS ---
Author Organization Vito Joel MD Address [address] [place] [phone] Care Team Providers Care Vice President Of Engineering Name Role Phone Vito Joel Primary Care Provider REASON FOR VISIT RF amlodipine Medications Medication SIG (Take, Route, Frequency, Duration) Notes Start Date End Date Status amLODIPine Besylate 10 MG 1 tablet Orall y Once a day for 30 days 10/19/2024 Active Encounters Encounter Location Date Provider Diagnosis Vito Joel MD 10 [facility] [address] [place] [phone] 10/19/2024 Vito Joel Plan Of Treatment Medication Medication Name Sig Start Date Stop Date Notes amLODIPine Besylate 10 MG 1 tablet Orall y Once a day for 30 days 10/19/2024 Next Appt Details Provider Name:Vito romero, 07/10/2025 08:00:00 AM, [address] [place] [address], Suite [facility], [place], [place], [phone], Provider Name:Vito romero, 07/17/2025 01:00:00 PM, [address] [place] [address], [address], [phone], Progress Notes * Maria Ines KAM ADOB:[birth year] (84 yo F)Acc No.[id number]:10/19/2024 Patient: Maria Ines ALFONSO :1940 A ge:84 Y S ex:Female Address:[address] [place] [address] * Refills Start amLODIPine Besylate Tablet, 10 MG, Orally, 30, 1 tablet, Once a day, 30 days, Refills=5 * true * Date: Generated for Chey winslow/Sofie/Clementsmitting on: 07/29/2024 12:52 PM EST
--- OUTSIDE RECORDS SUMMARY | 2024-10-30 06:30 | XMS_ITS ---
Author Organization Vito Jole MD Address [address] [place], [place] [phone] Care Team Providers Care Neighborhood Worker Name Role Phone Vito Joel Primary Care Provider Allergies No Known Allergies REASON FOR VISIT PH/TCM Medications Medication SIG (Take, Route, Frequency, Duration) Notes Start Date End Date Status carBAMazepine 200 MG TAKE 1 TABLET TWICE A DAY Orally Twice a day Active Nystatin-Triamcinolone 939744-8.1 UNIT/GM 1 application to affected area Externally [...] kg/m2 10/30/2024 weight is down 6 pounds [facility] e 07-13-24 Encounters Encounter Location Date Provider Diagnosis Vito Joel MD [address] [place] [address] [place] [phone] 10/30/2024 Vito Joel Small bowel obstruction K56.609 [...] Reason: Provider Name:Vito romero, 07/10/2025 08:00:00 AM, [address] [place] [address], Suite [facility], [place], [place], [phone], Provider Name:Vito romero, 07/17/2025 01:00:00 PM, [address] [place] [address], Suite [facility], [place], [place], [phone], Progress Notes * Maria Ines KAM ADOB:[birth year] (84 yo F)Acc No.[id number]:10/30/2024 Patient: Isacc SHANNANPLACIDO Maria Ines Ennis Provider: Kareem Joel MD :1940 A ge:84 Y S ex:Female Date:10/30/2024 Address:[address] [place], [place] [phone] Subjective: * Chief Complaints: * P H/TCM * HPI: S ymptom(s): patient is a 84 [facility] female [facility]. Discharge summary has been [...] 1 tablet Orally Once a day Not-Taking/PRNNystatin-Triamcinolone 750831-6.1 UNIT/GM Cream 1 application to affected area Externally Twice a day Not-Taking/PRN Nystatin-Triamcinolone 669484-1.1 UNIT/GM Cream 1 application to affected area [...] 0 10/30/2024 Generated for Chey winslow/Sofie/eTpeytonsmitting on: 07/29/2024 12:51 PM EST History and Physical Notes * HPI (History of Present Illness) Category Sub-Category Detail Notes Category Not es Symptom(s) patient is a 84 yo female [facility] Discharge summary has been [...]
--- OUTSIDE RECORDS SUMMARY | 2024-11-10 05:59 | XMS_ITS ---
Author Organization Vito Joel MD Address [address] [place] [phone] Care Team Providers Care Vending Service Technician Name Role Phone Vito Joel Primary Care Provider REASON FOR VISIT refill Medications Medication SIG (Take, Route, Frequency, Duration) Notes Start Date End Date Status amLODIPine Besylate 10 MG 1 tablet Orall y Once a day for 90 days 10/19/2024 Active Encounters Encounter Location Date Provider Diagnosis Vito Joel MD [address] [place] [phone] 11/10/2024 Vito Joel Essential hypertension I10 Assessments Encounter Date Diagnosis (ICD Code) Assessment Notes Treatment Notes Treatment Clinical Notes Section Notes 11/10/2024 Essential hypertension (ICD-10 - I10) Plan Of Treatment Medication Medication Name Sig Start Date Stop Date Notes amLODIPine Besylate 10 MG 1 tablet Orall y Once a day for 90 days 10/19/2024 Next Appt Details Provider Name:Vito romero, 07/10/2025 08:00:00 AM, [address] [place] [address], Suite [facility], [place], [place], [phone], Provider Name:Vito romero, 07/17/2025 01:00:00 PM, [address] [place] [address], [address], [place], [place], [phone], Progress Notes * Maria Ines KAM ADOB:[birth year] (84 yo F)Acc No.[id number]:11/10/2024 Patient: Maria Ines ALFONSO :1940 A ge:84 Y S ex:Female Address:[address] [place] [address] [place] [address] * Refills Refill amLODIPine Besylate Tablet, 10 MG, Orally, 90, 1 tablet, Once a day, 90 days, Refills=3 * true * Date: Generated for Chey winslow/Sofie/Dwayneitting on: 07/29/2024 12:52 PM EST
--- OUTSIDE RECORDS SUMMARY | 2024-11-28 06:30 | XMS_ITS ---
Author Organization Vito Joel MD Address [address] [place], [place] [phone] Care Team Providers Care Broom Worker Name Role Phone Vito Joel Primary Care Provider [phone] Allergies No Known Allergies REASON FOR VISIT 4 WEEK F/U, Patient is not sure if she has been taking Furosemide Medications Medication SIG (Take, Route, Frequency, Duration) Notes Start Date End Date Status Nystatin-Triamcinolone 345317-9.1 UNIT/GM 1 application to affected area Externally [...] Location Date Provider Diagnosis Vito Joel MD [address] [place] [address] [place] [phone] 11/28/2024 Vito Joel Essential hypertension I10 and [...] Reason: Provider Name:Vito romero, 07/10/2025 08:00:00 AM, [address] [place] [address], [place] [address], [place], [place], [phone], Provider Name:Vito romero, 07/17/2025 01:00:00 PM, [address] [place] [address], [place] [address], [place], [place], [phone], Progress Notes * Maria Ines AKM ADOB:[birth year] (84 yo F)Acc No.[id number]:11/28/2024 Progress Notes Patient: Maria Ines ALFONSO Provider: Kareem Joel MD :1940 A ge:84 Y S ex:Female Date:11/28/2024 Address:[address] [place], [place] [phone] Subjective: * Chief Complaints: * 4 WEEK [...] 1 tablet Orally Once a day Not-Taking/PRNNystatin-Triamcinolone 051833-3.1 UNIT/GM Cream 1 application to affected area Externally Twice a day Medication List reviewed and reconciled with the patientNot-Taking/PRN Nystatin-Triamcinolone 784152-0.1 UNIT/GM Cream 1 application to affected area [...] 0 11/28/2024 Generated for Chey winslow/Sofie/Dwayneitting on: 07/29/2024 12:54 PM EST History and Physical Notes * [...]
--- OUTSIDE RECORDS SUMMARY | 2024-12-28 05:30 | XMS_ITS ---
Author Organization Vito Joel MD Address [address] [place], [place] [phone] Care Team Providers Care Product Architect Name Role Phone Vito Joel Primary Care Provider Allergies No Known Allergies Results Component Value Reference Range Notes Hemoglobin A1c Reviewed date:12/28/2024 10:42:40 AM Interpretation: Performing Lab: Notes/Report: Hemoglobin A1c 5.5 Glucose, finger stick Reviewed date:12/28/2024 10:35:13 AM Interpretation: Performing Lab: Notes/Report: Value 98 REASON FOR VISIT 4 WEEK, c/o bilateral lower leg edema x 2 days Medications Medication SIG (Take, Route, Frequency, Duration) [...] A DAY Orally Twice a day Active Furosemide 20 MG 1 tablet Orally Once a day for 30 days 12/28/2024 Active amLODIPine Besylate 10 MG 1 tablet Orall y Once a day for 90 days 10/19/2024 Active Nystatin-Triamcinolone 580833-8.1 UNIT/GM 1 application to affected area Externally Twice a day for 30 days 09/21/2017 Not-Taking Vital Signs Blood pressure systolic 142 mm Hg 12/29/19 25 Blood pressure diastolic 56 mm Hg 025 Height 65.25 in 12/28/2024 Weight 175 lbs 12/28/2024 BMI 28.9 kg/m2 12/28/2024 Encounters Encounter Location Date Provider Diagnosis Vito Joel MD [address] [place] [phone] 12/28/2024 Vito Joel Prediabetes R73.09 and Edema leg R60.0 Assessments Encounter Date Diagnosis (ICD Code) Assessment Notes Treatment Notes Treatment Clinical Notes Section Notes 12/28/2024 Prediabetes (ICD-10 - R73.09) doing well, no need for medication at this time 12/28/2024 Edema leg (ICD-10 - R60.0) patient verbalized understanding of medication and directions for use Plan Of Treatment Medication Medication Name Sig Start Date Stop Date Notes Furosemide 20 MG 1 tablet Orally Once a day for 30 days Treatment Notes Assessment Notes Prediabetes doing well, no need for medication at this time Edema leg patient verbalized u nderstanding of medication and directions for use Next Appt Details Follow Up: 2 Months, Reason: Provider Name:Vito romero, 07/10/2025 08:00:00 AM, [address] [place] [address], [phone], Provider Name:Vito romero, 07/17/2025 01:00:00 PM, [address] [place] [address], [place], [place], [phone], Progress Notes * Maria Ines KAM ADOB:[birth year] (84 yo F)Acc No.[id number]:12/28/2024 Progress Notes Patient: Maria Ines ALFONSO Provider: Kareem Joel MD :1940 A ge:84 Y S ex:Female Date:12/28/2024 Address:[address] [place], [place] [address] [id number] Subjective: * Chief Complaints: * 4 WEEKC/o bilateral lower leg edema x 2 days * HPI: S ymptom(s): patient is a 84 yo female here for 4 week follow up visit. * ROS: G eneral/Constitutional: Denies C hills. D enies F atigue. D enies F ever. D enies H eadache. E NT: Denies S ore throat. R espiratory: Denies C ough. D enies S hortness of breath at rest. D enies S hortness of breath with exertion. C ardiovascular: Denies C hest pain at rest. D enies C hest pain with exertion. D enies D izziness. A dmits F luid accumulation in the legs. D enies?Palpitations. D enies S hortness of breath. G astrointestinal: Denies D iarrhea. D enies N ausea. * Medical History: * Surgical History: * Hospitalization/Major Diagno stic Procedure: * Medications: T akingAspir-81 81 MG Tablet Delayed Release 1 tablet [...] 1 tablet Orally Once a day Not-Taking/PRNNystatin-Triamcinolone 982982-3.1 UNIT/GM Cream 1 application to affected area Externally Twice a day Medication List reviewed and reconciled with the patientNot-Taking/PRN Nystatin-Triamcinolone 593630-1.1 UNIT/GM Cream 1 application to affected area Externally Twice a day Medication List reviewed and reconciled with the patient * Allergies: N .K.D.A.yes[Allergies Verified] Objective: * Vitals: H t: 65.25, Wt: 175, BMI:28.9, BP:142/56, Wt-k.38. * Examination: G eneral Examination: GENERAL APPEARANCE: a lert, well hydrated, in no distress.? SKIN: g ood turgor. HEART: r egular rate and rhythm, no murmurs, rubs, gallops.? LUNGS: n o wheezes, rales, rhonchi, good air movement, clear to auscultation bilaterally. EXTREMITIES: 2 + pitting edema lower extremities. ? Assessment: * Assessment: 1. P rediabetes - R73.09 (Primary) 2 . E russel leg - R60.0 Plan: * Treatment: Value Reference Range H emoglobin A1c 5.5 ?LAB: Glucose, finger stick (Collection Date & Time - 12/28/2024)* Value Reference Range V alue 98 Notes: doing well, no need for medication at this time??2.?Edema leg? Start Furosemide Tablet, 20 MG, 1 tablet, Orally, Once a day, 30 days, 30, Refills 11.?? Notes: patient verbalized understanding of medication and directions for use?? * Procedure Codes: 8 2947 ASSAY, GLUCOSE, BLOOD QUANT, Modifiers: QW 54003 GLYCATED HEMOGLOBIN TEST, Modifiers: QW * Follow Up: 2 Months * * Sign off status: Completed true * Provider: Kareem Joel MD Date: 0 12/28/2024 Generated for Chey winslow/Sofie/Clementsmitting on: 1 07/29/2024 12:51 PM EST History and Physical Notes * HPI (History of Present Illness) Category Sub-Category Detail Notes Category Not es Symptom(s) patient is a 84 yo female here for 4 week follow up visit Examination Category Sub-Category Detail Notes Category Not es General Examination GENERAL APPEARANCE: alert, w ell hydrated, in no distress HEART: regular rate and rhy thm, no murmurs, rubs, gallops LUNGS: no wheezes, rales, r honchi, good air movement, clear to auscultation bilaterally SKIN: good turgor EXTREMITIES: 2+ pitting edema low er extremities
--- OUTSIDE RECORDS SUMMARY | 2025-02-09 03:15 | XMS_ITS ---
Author Organization Vito Joel MD Address [address] [place], [place] [phone] Care Team Providers Care Juice Standardizer Name Role Phone Vito Joel Primary Care Provider [phone] Results Component Value Reference Range Notes Liver Panel Reviewed date:02/09/2025 04:39:24 PM Interpretation: Performing Lab:[facility], [address] [place] [phone] Notes/Report: Bilirubin Total 0.2 0.0-1.0 mg/dL Bilirubin Direct < 0.2 0.0-0.5 mg/dL Aspartate Amino Transferase 32 5-31 U/L Alanine Aminotransferase 18 0-31 U/L Total Protein 6.6 6.5-8.0 g/dL Albumin Level 4.1 3.5-5.0 g/dL Alkaline Phosphatase 137 39-117 U/L Glucose Fasting Reviewed date:02/09/2025 04:39:01 PM Interpretation: Performing Lab:[facility], [address] [place] [phone] Notes/Report: Glucose Fasting 102 60-99 mg/dL A fasting glucose from 100-125 mg/dl is considered impaired (pre-diabetes). Lipid Panel with Reflex Reviewed date:02/09/2025 04:51:34 PM Interpretation: Performing Lab:[facility], [address] [place] [phone] Notes/Report: Triglycerides 97 <150 mg/dL Desirable Triglyceride: less than 150 mg/dL Borderline High Triglyceride 150-199 mg/dL High Triglyceride: 200-499 mg/dL Very High Triglyceride: greater than or equal to 5OO mg/dL Cholesterol 181 <200 mg/dL Desirable Cholesterol: less than 200 mg/dL Borderline High Cholesterol: 200-239 mg/dL High Cholesterol: greater than 239 mg/dL LDL Cholesterol Calculated 112 <100 mg/dL Desirable LDL: less than 100 mg/dL Near Optimal/Above Optimal LDL: 110-129 mg/dL Borderline High LDL: 130-159 mg/dL High LDL: 160-189 mg/dL Very High LDL: greater than or equal to 190 mg/dL HDL Cholesterol 50 >40 mg/dL Desirable HDL: greater than 40 mg/dL Note: This HDL assay may give artificially low results in patients with liver disease. Hemoglobin A1c Reviewed date:02/09/2025 04:39:33 PM Interpretation: Performing Lab:[facility], [address] [place] [phone] Notes/Report: Hemoglobin A1c % 5.7 <6.0 % Hemoglobin A1C Reference Range Adults: 4.8 - 6.0 % Non diabetic: < 6.0 % Goal: < 7.0 % Additional Action Suggested: > 8.0 % Note: Hemoglobin A1c results are invalid for patients with abnormal amounts of HbF. Blood transfusions may impact the HbA1c concentration in the patient sample. Estimated Average Glucose 117 eAG = Estimated average glucose which is %A1C expressed as average glucose, using the formula of the W8Y-Rzutbrm Average Glucose study (ADAG), Diabetes Care, Vol.31,#8, Feb. 2007 REASON FOR VISIT FASTING LIPIDS Encounters Encounter Location Date Provider Diagnosis Vito Joel MD [address] [place] [address] Drive [address] [place], [place] [phone] 02/09/2025 Vito Joel Prediabetes R73.09 a nd Pure hypercholesterolemia E78.00 Assessments Encounter Date Diagnosis (ICD Code) Assessment Notes Treatment Notes Treatment Clinical Notes Section Notes 02/09/2025 Prediabetes (ICD-10 - R73.09) 02/09/2025 Pure hypercholesterolemia (ICD-10 - E78.00) Plan Of Treatment Next Appt Details Provider Name:Vito Johnson ier, 07/10/2025 08:00:00 AM, [address], [address], [place], [phone], Provider Name:Vito Johnson ier, 07/17/2025 01:00:00 PM, [address], [address], [place], [place], [phone], Progress Notes * Maria Ines KAM ADOB:[birth year] (85 yo F)Acc No.[id number]:02/09/2025 Progress Note Patient: Maria Ines ALFONSO Provider: Kareem Joel MD :1940 A ge:84 Y S ex:Female Date:02/09/2025 Address:[address] [place], [place] [phone] Subjective: * Chief Complaints: * 1 . FASTING LIPIDS. * Medical History: Objective: * Vitals: Assessment: * Assessment: 1. P rediabetes - R73.09 (Primary) 2 . P ure hypercholesterolemia - E78.00? Plan: * Treatment: 2. P ure hypercholesterolemia L AB: Liver Panel (Collection Date & Time - 02/09/2025 08:00 AM) L AB: Glucose Fasting (Collection Date & Time - 02/09/2025 08:00 AM) L AB: Lipid Panel with Reflex (Collection Date & Time - 02/09/2025 08:00 AM) L AB: Hemoglobin A1c (Collection Date & Time - 02/09/2025 08:00 AM) * Procedure Codes: 3 6415 VENIPUNCT, ROUTINE* * * The named appointment provid er may or may not be the originator of this progress note, and it is not deemed complete until electronically signed by the appointment provider. Sign off status: Pending * Provider: Kareem Joel MD Date: 0 02/09/2025 Generated for Chey winslow/Sofie/eTpeytonsmitting on: 1 07/29/2024 12:51 PM EST
--- OUTSIDE RECORDS SUMMARY | 2025-02-16 05:30 | XMS_ITS ---
Author Organization Vito Joel MD Address [address] [place], [place] [phone] Care Team Providers Care Boat Hoist Operator Name Role Phone Vito Joel Primary Care Provider [phone] Allergies No Known Allergies REASON FOR VISIT 6 MO F/U Medications Medication SIG (Take, Route, Frequency, Duration) Notes Start Date End Date Status Nystatin-Triamcinolone 861749-2.1 UNIT/GM 1 application to affected area Externally Twice a day for 30 days 09/21/2017 Not-Taking Furosemide 20 MG 1 tablet Orally Once a day for 30 days 12/28/2024 Active Atorvastatin Calcium 80 MG TAKE 1 TABLET DAILY Active Molnupiravir 200 MG 4 capsules Orally ev dara 12 hrs for 5 day(s) 03/23/2024 Active carBAMazepine 200 MG TAKE 1 TABLET TWICE A DAY Orally Twice a day Active amLODIPine Besylate 10 MG 1 tablet Orall y Once a day 10/19/2024 Active Aspir-81 81 MG 1 tablet Orally Once a day for 30 day(s) Active Vital Signs Blood pressure systolic 132 mm Hg 02/17/20 25 Blood pressure diastolic 60 mm Hg 025 Height 65.25 in 02/16/2025 Weight 175 lbs 02/16/2025 BMI 28.9 kg/m2 02/16/2025 Encounters Encounter Location Date Provider Diagnosis Vito Joel MD [address] [place] [address] Drive [address] [place], [place] [phone] 02/16/2025 Vito Joel Essential hypertensi on I10 ; Prediabetes R73.09 and Pure hypercholesterolemia E78.00 Assessments Encounter Date Diagnosis (ICD Code) Assessment Notes Treatment Notes Treatment Clinical Notes Section Notes 02/16/2025 Essential hypertensi on (ICD-10 - I10) well controlled, will continue current regiment 02/16/2025 Prediabetes (ICD-10 - R73.09) doing well with good a1c, no need for medicatin at this time 02/16/2025 Pure hypercholesterolemia (ICD-10 - E78.00) is a little high, will continue to monitor, advised on diet Plan Of Treatment Medication Medication Name Sig Start Date Stop Date Notes Atorvastatin Calcium 80 MG TAKE 1 TABLET DAILY amLODIPine Besylate 10 MG 1 tablet Orally Once a day 10/19 Treatment Notes Assessment Notes Essential hypertension well controlled, will continue current regiment Prediabetes doing well with good a1c, no need for medicatin at this time Pure hypercholesterolemia is a little hi gh, will continue to monitor, advised on diet Next Appt Details Provider Name:Vito Johnson ier, 07/10/2025 08:00:00 AM, [address] [place] [address], [address], [place], [place], [phone], Provider Name:Vito Johnson ieelle, 07/17/2025 01:00:00 PM, [address] [place] [address], [address], [place], [place], [phone], Progress Notes * Maria Ines KAM ADOB:[birth year] (84 yo F)Acc No.[id number]:02/16/2025 Progress Notes Patient: Maria Ines ALFONSO Loli Provider: Kareem Joel MD :1940 A ge:84 Y S ex:Female Date:02/16/2025 Address:[address] [place], [place] [phone] Subjective: * Chief Complaints: * 6 MO F/U * HPI: S ymptom(s): patient is a 84 yo female here for 6 month follow up visit/ here for follow up / is doing okay. was walking with cane before her surgery. * ROS: G eneral/Constitutional: Denies C hills. [...] pain with exertion. D enies D izziness. D enies P alpitations. D enies S hortness of breath. G astrointestinal: Denies D iarrhea. D enies N ausea. * Medical History: * Surgical History: * Hospitalization/Major Diagno stic Procedure: * Medications: T akingAspir-81 81 MG Tablet Delayed Release 1 tablet Orally Once a day Molnupiravir 200 MG Capsule 4 capsules Orally every 12 hrs carBAMazepine 200 MG Tablet TAKE 1 TABLET TWICE A DAY Orally Twice a day amLODIPine Besylate 10 MG Tablet 1 tablet Orally Once a day Furosemide 20 MG Tablet 1 tablet Orally Once a day Atorvastatin Calcium 80 MG Tablet TAKE 1 TABLET DAILY Taking Aspir-81 81 MG Tablet Delayed Release 1 tablet Orally Once a day Taking Molnupiravir 200 MG Capsule 4 capsules Orally every 12 hrs Taking carBAMazepine 200 MG Tablet TAKE 1 TABLET TWICE A DAY Orally Twice a day Taking amLODIPine Besylate 10 MG Tablet 1 tablet Orally Once a day Taking Furosemide 20 MG Tablet 1 tablet Orally Once a day Taking Atorvastatin Calcium 80 MG Tablet TAKE 1 TABLET DAILY Not-Taking/PRNNystatin-Triamcinolone 712046-4.1 UNIT/GM Cream 1 application to affected area Externally Twice a day Medication List reviewed and reconciled with the patientNot-Taking/PRN Nystatin-Triamcinolone 211315-6.1 UNIT/GM Cream 1 application to affected area Externally Twice a day Medication List reviewed and reconciled with the patient * Allergies: N .K.D.A.yes[Allergies Verified] Objective: * Vitals: H t: 65.25, Wt: 175, BMI:28.9, BP:132/60, Wt-k.38. * P ast Orders: L ab:Lipid Panel with Reflex (Order Date - 02/09/2025) (Collection Date & Time - 02/09/2025 08:00 AM) Value Reference Range Triglycerides 97 <150 - mg/dL Cholesterol 181 <200 - mg/dL LDL Cholesterol Calculated 112 H <100 - mg/dL HDL Cholesterol 50 >40 - mg/dL L ab:Hemoglobin A1c (Order Date - 02/09/2025) (Collection Date & Time - 02/09/2025 08:00 AM) Value Reference Range Hemoglobin A1c % 5.7 <6.0 - % Estimated Average Glucose 117 - mg/dL L ab:Liver Panel (Order Date - 02/09/2025) (Collection Date & Time - 02/09/2025 08:00 AM) Value Reference Range Bilirubin Total 0.2 0.0-1.0 - mg/dL Bilirubin Direct < 0.2 0.0-0.5 - mg/dL Aspartate Amino Transferase 32 H 5-31 - U/L Alanine Aminotransferase 18 0-31 - U/L Total Protein 6.6 6.5-8.0 - g/dL Albumin Level 4.1 3.5-5.0 - g/dL Alkaline Phosphatase 137 H 39-117 - U/L L ab:Glucose Fasting (Order Date - 02/09/2025) (Collection Date & Time - 02/09/2025 08:00 AM) Value Reference Range Glucose Fasting 102 H 60-99 - mg/dL * Examination: G eneral Examination: GENERAL APPEARANCE: a lert, well hydrated, in no distress.? HEAD: n ormocephalic. SKIN: g ood turgor. HEART: r egular rate and rhythm, no murmurs, rubs, gallops.? LUNGS: n o wheezes, rales, rhonchi, good air movement, clear to auscultation bilaterally. Assessment: * Assessment: 1. E ssential hypertension - I10 (Primary) 2 . P rediabetes - R73.09 ? 3 . P ure hypercholesterolemia - E78.00 Plan: * Treatment: 2. P rediabetes Notes: doing well with good a1c, no need for medicatin at this time 3. P ure hypercholesterolemia Continue Atorvastatin Calcium Tablet, 80 MG, TAKE 1 TABLET DAILY. Notes: is a little high, will continue to monitor, advised on diet * Procedure Codes: * * Sign off status: Completed true * Provider: Kareem Joel MD Date: 0 02/16/2025 Generated for Chey winslow/Sofie/Ez on: 07/29/2024 12:52 PM EST History and Physical Notes * HPI (History of Present Illness) Category Sub-Category Detail Notes Category Not es Symptom(s) patient is a 84 yo female here for 6 month follow up visit/ here for follow up / is doing okay. was walking with cane before her surgery Examination Category Sub-Category Detail Notes Category Not es General Examination GENERAL APPEARANCE: alert, w ell hydrated, in no distress HEAD: normocephalic HEART: regular rate and rhy thm, no murmurs, rubs, gallops LUNGS: no wheezes, rales, r honchi, good air movement, clear to auscultation bilaterally SKIN: good turgor
--- OUTSIDE RECORDS SUMMARY | 2025-02-26 05:53 | XMS_ITS ---
Author Organization Vito Joel MD Address [address] [place] [phone] Care Team Providers Care Tie In Hand Name Role Phone Vito Joel Primary Care Provider [phone] Medications Medication SIG (Take, Route, Fr equency, Duration) Notes Start Date End Date Status Furosemide 20 MG 1 tablet Orally Once a day for 90 days 12/28/2024 Active Encounters Encounter Location Date Provider Diagnosis Vito Joel MD [address] [facility] [address] [place] [phone] 02/26/2025 Vito Joel Edema leg R60.0 Assessments Encounter Date Diagnosis (ICD Code) Assessment Notes Treatment Notes Treatment Clinical Notes Section Notes 02/26/2025 Edema leg (ICD-10 - R60.0) Plan Of Treatment Medication Medication Name Sig Start Date Stop Date Notes Furosemide 20 MG 1 tablet Orally Once a day for 90 days Next Appt Details Provider Name:Vito romero, 07/10/2025 08:00:00 AM, [address] [place] [address], [address], [phone], Provider Name:Vito romero, 07/17/2025 01:00:00 PM, [address], [address], [phone], Progress Notes * Maria Ines KAM ADOB:[birth year] (85 yo F)Acc No.[id number]:02/26/2025 Patient: Maria Ines ALFNOSO :1940 A ge:85 Y S ex:Female Address:[address] [place] [address] * Refills Refill Furosemide Tablet, 20 MG, Orally, 90 Tablet, 1 tablet, Once a day, 90 days, Refills=3 * true * Date: Generated for Chey winslow/Sofie/Dwayneitting on: 07/29/2024 12:53 PM EST
--- OUTSIDE RECORDS SUMMARY | 2025-03-08 05:00 | XMS_ITS ---
Author Organization [facility] Address [address] [place] [address] Care Team Providers Care Car Wash Attendant Automatic Name Role Phone Vito Joel MD Primary Care Provider Irais Mcghee [phone] Medications Medication SIG (Take, Route, Frequency, Duration) Notes Start Date End Date Status Aspirin 75 MG 1 tablet Orally Once [...] times a day; Duration: 30 day(s) Not-Taking Lisinopril 10 MG 1 tablet Orally Once a day Active Atorvastatin Calcium 80 MG Oral; Duratio n: 90 Days Active Encounters Encounter Location Date Provider Diagnosis [address] [address] 03/08/2025 Irais Prieto Plan Of Treatment Next Appt Details Provider Name:Irais Prieto , 09/10/2025 10:30:00 AM, [address] [place], [address], Progress Notes * Maria Ines KAM ADOB:[birth year] (85 yo F)Acc No.[id number]:03/08/2025 Progress Note Patient: Maria Ines ALFONSO Provider: Bebe Prieto DPM :1940 A ge:85 Y S ex:Female Date:03/08/2025 [facility] [place], [place] Pcp:Vito Joel MD Subjective: * Chief Complaints: * * Medical History: C ancer, Seizures, High blood pressure, Pronation deformity of left foot, Pronation deformity of right foot, Hallux valgus (acquired), left foot, Hallux valgus (acquired), right foot, Other hammer toe(s) (acquired), left foot, Other hammer toe(s) (acquired), right foot, Osteoarthritis of left ankle and foot, Osteoarthritis of right ankle and foot. * Medications: T aking Lisinopril 10 MG Tablet 1 tablet Orally Once a day , Taking Atorvastatin Calcium 80 MG Tablet Oral , Taking Aspirin 75 MG Tablet Chewable 1 tablet Orally Once a day , Taking carBAMazepine 200 MG Tablet 1 tablet Orally Twice a day , Not-Taking/PRN Night Splint AFO - L1930 1 wear at rest , Not-Taking/PRN Lipitor 80 MG Tablet 1 tablet Orally Once a day , Not-Taking/PRN Prinivil 10 MG Tablet 1 tablet Orally Once a day , Not-Taking/PRN TEGretol 100 MG/5ML Suspension 5 ml Orally Three times a day Objective: * Vitals: Assessment: Plan: * Treatment: * Images: * The named appointment provid er may or may not be the originator of this progress note, and it is not deemed complete until electronically signed by the appointment provider. Sign off status: Pending * Provider: Bebe Prieto DPM Date: 0 03/08/2025 Generated for Chey winslow/Sofie/Ez on: 07/29/2024 12:51 PM EST
--- OUTSIDE RECORDS SUMMARY | 2025-05-24 08:15 | XMS_ITS ---
Author Organization [facility] Address [address] [place] [address] Care Team Providers Care Stonemason Name Role Phone Vito Joel MD Primary Care Provider Irais Mcghee [phone] REASON FOR VISIT Seen Sooner Encounters Encounter Location Date Provider Diagnosis [facility] [address] [place] [address] 05/24/2025 Irais Prieto Plan Of Treatment Next Appt Details Provider Name:Iraiscaty Prieto , 09/10/2025 10:30:00 AM, [address] [place], [address], Progress Notes * Maria Ines KAM ADOB:[birth year] (85 yo F)Acc No.[id number]:05/24/2025 Progress Note Patient: Maria Ines ALFONSO Provider: Bebe Prieto DPM :1940 A ge:85 Y S ex:Female Date:05/24/2025 Address: [address] [place], [place] Pcp:Vito Joel MD Subjective: * Chief Complaints: [...] 1 07/24/2024 Generated for Chey winslow/Sofie/Ez on: 07/29/2024 12:51 PM EST
--- OUTSIDE RECORDS SUMMARY | 2025-05-29 12:52 | XMS_ITS | Patient Health Record ---
Author Organization Vito Joel MD Address [address] [place], [place] [id number] Care Team Providers Care Barrel Reamer Name Role Phone Vito Joel Primary Care Provider [phone] Allergies No Known Allergies Results Component Value Reference Range Notes Hemoglobin A1c Reviewed date:12/28/2024 10:42:40 AM Interpretation: Performing Lab: Notes/Report: Hemoglobin A1c 5.5 Complete Blood Count Auto Di ff Reviewed date:07/06/2024 01:41:47 PM Interpretation: Performing Lab:[facility], [address] [place] [phone] Notes/Report: White Blood Count 5.9 4.8-10.8 X10*3/uL [...] NRBC Abs Auto 0.000 0.0-0.012 X10*3/uL Comprehensive [place]. Panel Fa st Reviewed date:07/06/2024 01:53:50 PM Interpretation: Performing Lab:[facility], [address] [place] [phone] Notes/Report: Sodium 135 135-145 mmol/L Potassium 4.1 [...] Panel Reviewed date:07/06/2024 01:43:16 PM Interpretation: Performing Lab:[facility], [address] [place] [phone] Notes/Report: Triglycerides 81 <150 mg/dL Desirable Triglyceride: [...] Random Reviewed date:07/06/2024 01:41:54 PM Interpretation: Performing Lab:[facility], [address] [place] [phone] Notes/Report: Creatinine Urine 67.54 Microalbumin Urine 25.0 Microalbum/Creatinine Ratio Ur 37.0 <30 ug/mg cr Albumin/Creatinine Ratio Reference Ranges: Normal: < 30 ug/mg creatinine Microalbuminuria: 30 - 300 ug/mg creatinine Clinical Albuminuria: > 300 ug/mg creatinine Hemoglobin A1c Reviewed date:07/06/2024 01:43:25 PM Interpretation: Performing Lab:[facility], [address] [place] [phone] Notes/Report: Hemoglobin A1c % 5.6 <6.0 % [...] average glucose, using the formula of the F3L-Ntxjmsi Average Glucose study (ADAG), Diabetes Care, Vol.31,#8, Feb. 2007 UA ClnCatch+Micro w/rflx Cul t Reviewed date:07/13/2024 11:30:15 AM Interpretation:JENNIFER 07/13/24 Performing Lab:[address] [phone] Notes/Report: Urine, Clean Catch Color Urine Yellow Appearance Urine Clear PH 7.0 5.0-9.0 Glucose Urine UA Negative Negative mg/dL Urine Blood Small (1+) Negative Specific Pacific - Urine 1.010 1.005-1.025 Urine Protein Negative Neg-Trace mg/dL Urine Ketones Negative Negative mg/dL Nitrite Urine Negative Negative Leukocyte Esterase Urine Moderate (2+) Negative RBC Urine 3-5 0-2 /HPF WBC Urine 6-10 0-5 /HPF Squamous Epithelial Cell Urine 3-5 0-2 /HPF Bacteria Urine 1+ None Seen Hyaline Casts Urine 0-2 0-2 /LPF Liver Panel Reviewed date:02/09/2025 04:39:24 PM Interpretation: Performing Lab:[address] [phone] Notes/Report: Bilirubin Total 0.2 0.0-1.0 mg/dL Bilirubin Direct < 0.2 0.0-0.5 mg/dL Aspartate Amino Transferase 32 5-31 U/L Alanine Aminotransferase 18 0-31 U/L Total Protein 6.6 6.5-8.0 g/dL Albumin Level 4.1 3.5-5.0 g/dL Alkaline Phosphatase 137 39-117 U/L Glucose Fasting Reviewed date:02/09/2025 04:39:01 PM Interpretation: Performing Lab:[address] [address] Notes/Report: Glucose Fasting 102 60-99 mg/dL A fasting glucose from 100-125 mg/dl is considered impaired (pre-diabetes). Lipid Panel with Reflex Reviewed date:02/09/2025 04:51:34 PM Interpretation: Performing Lab:[address] [address] Notes/Report: Triglycerides 97 <150 mg/dL Desirable Triglyceride: [...] A1c Reviewed date:02/09/2025 04:39:33 PM Interpretation: Performing Lab:[address] [phone] Notes/Report: Hemoglobin A1c % 5.7 <6.0 % [...] average glucose, using the formula of the O0G-Statueb Average Glucose study (ADAG), Diabetes Care, Vol.31,#8, Feb. 2007 Occult Blood, Stool, Guaiac Reviewed date:07/13/2024 01:43:12 PM Interpretation:Negative Performing Lab: Notes/Report: Negative Occult Blood, Stool, Guaiac Neg Glucose, finger stick Reviewed date:12/28/2024 10:35:13 AM Interpretation: Performing Lab: Notes/Report: Value 98 Urine Culture Reviewed date:07/13/2024 12:31:12 PM Interpretation: Performing Lab:[facility], [address] [place] [phone] Notes/Report: O:ESCCOL Escherichia coli Urine Culture Quant Urine Culture > 100,000 cfu/mL Ampicillin 8 Cefazolin 2 Cefepime <=0.12 Ceftriaxone <=0.25 Ciprofloxacin <=0.06 Gentamicin <=1 Nitrofurantoin <=16 Trimethoprim/Sulfamethox azole <=20 UA ClnCatch+Micro w/rflx Cul t Reviewed date:09/07/2024 12:41:56 PM Interpretation: Performing Lab:[facility], [address] [place] [phone] Notes/Report: Urine, Clean Catch Color Urine Dark Yellow Appearance Urine Clear PH 6.0 5.0-9.0 Glucose Urine UA Negative Negative mg/dL Urine Blood Negative Negative Specific Pacific - Urine >= 1.030 1.005-1.025 Urine Protein [...] 10:29:18 AM Interpretation:reel radiology Performing Lab: Notes/Report: [address] [address] [address] Scan Report Signed with Addenda Patient: Maria Ines Kam MR#: [id number] 983 : 1940 Acct:[id number] Age/Sex: 84 / F ADM Date: 09/06/24 Loc: [place] [address]: Kavon Burnham MD Ordering Physician: Mago Mckeon MD Date of Service: 09/06/24 Procedure(s): CT abdomen pelvis w IV con Accession Number(s): [id number] cc: Vito Joel MD; Mago Mckeon MD Report Number: [id number]: Total DLP = 734.00 mGy-cm ADDENDUM This [...] in OV> 09/06/241832 DD/ 31 TD/TT: 09/06/241831 Marketing Sales Consultant: [address] [address] [address] Scan Report Signed with Addenda Patient: Armin Kam MR#: [id number] 983 : 1940 Acct:[id number] Age/Sex: 84 / F ADM Date: 09/06/24 [facility]: Xavier Burnham MD Ordering Physician: Mago Mckeon MD Date of Service: 09/06/24 Procedure(s): CT abd omen pelvis w IV con Accession Number(s): [id number] cc: Vito Joel MD; Mago Mckeon MD Report Number: [id number]: Total DLP = 734.00 mGy-cm ADDENDUM This [...] in OV> 09/06/241832 DD/ 31 TD/TT: 09/06/241831 Marketing Sales Consultant: XR chest 1V Reviewed date:09/07/2024 10:29:44 AM Interpretation: Performing Lab: Notes/Report: [address] [address] XRay Report Signed Patient: Maria Ines Kam MR#: [id number] 983 : 1940 Acct:[id number] Age/Sex: 84 / F ADM Date: 09/06/24 Loc: [place] [address]: Jose Wallace MD Ordering Physician: Mago Mckeon MD Date of Service: 09/06/24 Procedure(s): XR chest 1V Accession Number(s): [id number] cc: Vito Joel MD; Mago Mckeon MD [...] in OV> 09/06/242122 DD/ 20 TD/TT: 09/06/242120 Marketing Sales Consultant: [address] [address] XRay Report Signed Patient: Armin Kam MR#: [id number] 983 : 1940 Acct:[id number] Age/Sex: 84 / F ADM Date: 09/06/24 Loc: [place] [address]: Lakesha Wallace MD Ordering Physician: Mago Mckeon MD Date of Service: 09/06/24 Procedure(s): XR jose st 1V Accession Number(s): [id number] cc: Vito Joel MD; Mago Mckeon MD [...] in OV> 09/06/242122 DD/ 20 TD/TT: 09/06/242120 Marketing Sales Consultant: Complete Blood Count no Diff Reviewed date:09/07/2024 12:33:32 PM Interpretation: Performing Lab:[facility], [address] [place] [phone] Notes/Report: White Blood Count 21.7 4.8-10.8 X10*3/uL [...] Panel Reviewed date:09/07/2024 10:30:09 AM Interpretation: Performing Lab:[address] [address] Notes/Report: Sodium 137 135-145 mmol/L Potassium 3.9 [...] Sensitivity Reviewed date:09/08/2024 12:12:52 PM Interpretation: Performing Lab:[facility], [address] [place] [phone] Notes/Report: Troponin-I High Sensitivity 73.8 <3.5-17.0 ng/L Critical value for test(s): TROPONIN Results called to and read back by: MANUEL Person calling: BLAISE Date: 09/07/24 Time: 1915 The Cronin high sensitivity Troponin-I results should be used in conjunction with other diagnostic information such as ECG, clinical observations and information, and patient symptoms to aid in the diagnosis of MA. XR chest 1V Reviewed date:09/08/2024 12:12:42 PM Interpretation: Performing Lab: Notes/Report: [address] [address] XRay Report Signed Patient: Maria Ines Kam MR#: [id number] 983 : 1940 Acct:[id number] Age/Sex: 84 / F ADM Date: 09/06/24 Loc: [facility] Attending Dr: Kavon Burnham MD Ordering Physician: Jose Wallace MD Date of Service: 09/07/24 Procedure(s): XR chest 1V Accession Number(s): [id number] cc: Vito Joel MD; Jose Wallace MD [...] in OV> 09/07/242124 DD/ 23 TD/TT: 09/07/242123 Marketing Sales Consultant: [address] [address] XRay Report Signed Patient: Armin Kam MR#: [id number] 983 : 1940 Acct:[id number] Age/Sex: 84 / F ADM Date: 09/06/24 Loc: [facility] Attending Dr: Xavier Burnham MD Ordering Physician: Jose Wallace MD Date of Service: 09/07/24 Procedure(s): XR jose st 1V Accession Number(s): [id number] cc: Vito Joel MD; Jose Wallace MD [...] in OV> 09/07/242124 DD/ 23 TD/TT: 09/07/242123 Marketing Sales Consultant: XR chest 1V Reviewed date:09/08/2024 12:11:49 PM Interpretation: Performing Lab: Notes/Report: [address] [address] XRay Report Signed with Breana Patient: Maria Ines Kam MR#: [id number] 983 : 1940 Acct:[id number] Age/Sex: 84 / F ADM Date: 09/06/24 Loc: [place] [address]: Kavon Burnham MD Ordering Physician: Jose Wallace MD Date of Service: 09/07/24 Procedure(s): XR chest 1V Accession Number(s): [id number] cc: Vito Joel MD; Jose Wallace MD [...] in OV> 09/07/242126 DD/ 25 TD/TT: 09/07/242125 Marketing Sales Consultant: [address] [address] XRay Report Signed with Breana Patient: Armin Kam MR#: [id number] 983 : 1940 Acct:[id number] Age/Sex: 84 / F ADM Date: 09/06/24 Loc: [facility]: Xavier Burnham MD Ordering Physician: Jose Wallace MD Date of Service: 09/07/24 Procedure(s): XR jose st 1V Accession Number(s): [id number] cc: Vito Joel MD; Jose Wallace MD ADDENDUM This document has be en electronically signed by: Kamron uNnez MD on 09/07/2024 21:26:41 ADDENDUM: This report [...] in OV> 09/07/242126 DD/ 25 TD/TT: 09/07/242125 Marketing Sales Consultant: XR chest 1V Reviewed date:09/08/2024 12:11:23 PM Interpretation: Performing Lab: Notes/Report: [address] [address] XRay Report Signed Patient: Maria Ines Kam MR#: [id number] 983 : 1940 Acct:[id number] Age/Sex: 84 / F ADM Date: 09/06/24 Loc: [facility] Attending [address]: Kavon Burnham MD Ordering Physician: Jose Wallace MD Date of Service: 09/07/24 Procedure(s): XR chest 1V Accession Number(s): [id number] cc: Vito Joel MD; Jose Wallace MD [...] in OV> 09/07/242316 DD/ 15 TD/TT: 09/07/242315 Marketing Sales Consultant: [address] [address] XRay Report Signed Patient: Armin Kam MR#: [id number] 983 : 1940 Acct:[id number] Age/Sex: 84 / F ADM Date: 09/06/24 Loc: [facility]: Xavier Burnham MD Ordering Physician: Jose Wallace MD Date of Service: 09/07/24 Procedure(s): XR jose st 1V Accession Number(s): [id number] cc: Vito Joel MD; Jose Wallace MD [...] in OV> 09/07/242316 DD/ 15 TD/TT: 09/07/242315 Marketing Sales Consultant: Complete Blood Count no Diff Reviewed date:09/08/2024 12:45:54 PM Interpretation: Performing Lab:[facility], [address] [place] [phone] Notes/Report: SPECIMEN QNS White Blood Count 18.4 [...] Panel Reviewed date:09/08/2024 12:10:27 PM Interpretation: Performing Lab:[facility], [address] [place] [phone] Notes/Report: Sodium 138 135-145 mmol/L Potassium 4.0 [...] Sensitivity Reviewed date:09/08/2024 12:11:00 PM Interpretation: Performing Lab:[facility], [address] [place] [address] Notes/Report: Troponin-I High Sensitivity 101.3 <3.5-17.0 ng/L Critical value for test(s): TROP Results called to and read back by: MANUEL Person calling: VYASRID Date: [id number] Time:015 The Cronin high sensitivity Troponin-I results should be used in conjunction with other diagnostic information such as ECG, clinical observations and information, and patient symptoms to aid in the diagnosis of MA. FL small bowel follow throug h Reviewed date:09/11/2024 12:48:07 PM Interpretation: Performing Lab: Notes/Report: [address] [address] Fluoroscopy Report Signed Patient: Maria Ines Kam MR#: [id number] 983 : 1940 Acct:[id number] Age/Sex: 84 / F ADM Date: 09/06/24 Loc: .[facility] 352-[address]: Kavon Burnham MD Ordering Physician: eLxi Walsh PA-C Date of Service: 09/08/24 Procedure(s): FL small bowel follow through Accession Number(s): [id number] cc: Vito Joel MD; Lexi Walsh PA-C EXAMINATION: FL SMALL BOWEL SERIES CLINICAL INFORMATION: ?SBO, abd distention, persistent nausea COMPARISON: None available. TECHNIQUE: Following a stacker straightener image of the abdomen, thick barium contrast was administered orally, and interval abdominal radiographs were performed to assess for contrast progression through the small bowel. Following contrast transit through the small bowel and into the colon, the patient was placed on the fluoroscopy table, and multiple spot images were obtained. FINDINGS: Floor Finisher image of the abdomen demonstrates obstructed proximal [...] Jeff Mcnair MD 09/11/2024 10:35 AM EDT Dictated By: Jeff Mcnair MD Signed By: <Electronically signed by Jeff Mcnair MD in OV> 09/11/24 1035 DD/ 14 TD/TT: 09/08/242019 Marketing Sales Consultant: [place] [address] Fluoroscopy Report Signed Patient: Armin Kam MR#: [id number] 983 : 1940 Acct:[id number] Age/Sex: 84 / F ADM Date: 09/06/24 Loc: [facility]: Xavier Burnham MD Ordering Physician: Lexi Walsh PA-C Date of Service: 09/08/24 Procedure(s): FL sma ll bowel follow through Accession Number(s): [id number] cc: Vito Joel MD; Lexi Walsh PA-C EXAMINATION: FL SMALL BOWEL SERIES CLINICAL INFORMATION: ?SBO, abd distention , persistent nausea COMPARISON: None available. TECHNIQUE: Following a stacker straightener im age of the abdomen, thick barium contrast was administered orally, and interval abdominal radiographs were performed to assess for contra st progression through the small bowel. Following contrast transit thr ough the small bowel and into the colon, the patient was placed o n the fluoroscopy table, and multiple spot images were obtained. FINDINGS: Floor Finisher image of the abdomen demonstrates obstructed proximal [...] OV> 09/11/24 1035 DD/ 14 TD/TT: 09/08/242019 Marketing Sales Consultant: [facility] XR KUB Reviewed date:09/08/2024 12:10:15 PM Interpretation: Performing Lab: Notes/Report: [address] [address] XRay Report Signed Patient: Maria Ines Kam MR#: [id number] 983 : 1940 Acct:[id number] Age/Sex: 84 / F ADM Date: 09/06/24 Loc: [facility]-[address]: Kavon Burnham MD Ordering Physician: Kavon Burnham MD Date of Service: 09/08/24 Procedure(s): XR KUB Accession Number(s): [id number] cc: Vito Joel MD; Kavon Burnham MD [...] 09/08/24 0934 DD/ 0850 TD/TT: 09/08/24 09 Marketing Sales Consultant: [address] [place] [address] XRay Report Signed Patient: Armin Kam MR#: [id number] 983 : 1940 Acct:[id number] Age/Sex: 84 / F ADM Date: 09/06/24 Loc: [facility]-[address]: Xavier Burnham MD Ordering Physician: Kavon Burnham MD Date of Service: 09/08/24 Procedure(s): XR KUB Accession Number(s): [id number] cc: Vito Joel MD; Kavon Burnham MD [...] Jeff Mcnair MD 09/08/2024 09:34 AM EST Dictated By: Mr sabrina Mcnair MD Signed By: <Electronically signed by Jeff Mcnair MD in OV> 09/08/24 0934 DD/ 0850 TD/TT: 09/08/24 0901 Marketing Sales Consultant: RUIZ Troponin-I High Sensitivity Reviewed date:09/08/2024 12:09:04 PM Interpretation: Performing Lab:[facility], [address] [place] [phone] Notes/Report: Unable to obtain 2x 1037 09/08/24 [place] Troponin-I High Sensitivity 117.1 <3.5-17.0 ng/L Critical troponin sent by a secure message and confirmed by Kavon Burnham 09/08/24 1202 Tech: caroline The Cronin high sensitivity Troponin-I results should be used in conjunction with other diagnostic information such as ECG, clinical observations and information, and patient symptoms to aid in the diagnosis of MA. Complete Blood Count no Diff Reviewed date:09/10/2024 02:50:48 PM Interpretation: Performing Lab:[facility], [address] [place] [phone] Notes/Report: Unable to obtain x2 attempts rs09/09 White Blood Count 15.1 4.8-10.8 X10*3/uL Red [...] Panel Reviewed date:09/10/2024 02:51:37 PM Interpretation: Performing Lab:[facility], [address] [place] [phone] Notes/Report: Unable to obtain x2 attempts 09/09 Sodium 135 135-145 mmol/L Potassium 3.6 3.3-5.1 [...] Diff Reviewed date:09/10/2024 02:53:03 PM Interpretation: Performing Lab:[facility], [address] [place] [phone] Notes/Report: White Blood Count 14.0 4.8-10.8 X10*3/uL [...] Panel Reviewed date:09/10/2024 02:47:59 PM Interpretation: Performing Lab:[facility], [address] [place] [phone] Notes/Report: Sodium 139 135-145 mmol/L Potassium 3.2 [...] Pathology Reviewed date:09/12/2024 01:54:32 PM Interpretation: Performing Lab:[facility], [address] [place] [phone] Notes/Report: ---- Name: Maria Ines Kam Age/Sex: 84/F : 1940 Unit#: [id number] Attend Dr: Kavon Burnham MD Re09/06/24 Status : ADM IN Location: [place] [address]-1 Disch: ---- SPEC : [id number] RECD : 09/11/24 STATUS: MARIALUISA REQ NUM: [id number] BRET: 09/10/24 [facility] DR: Isabela Lopez MD ENTERED: 09/11/24 SP TYPE: Surgical OTHR DR: Vito Joel MD, Theodore MD ORDERED: Gross Micro L5 Diagnosis Small bowel, [...] therefore it is difficult to orie nt. 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 CEDS Copies To: Vito Joel MD [facility] [address] [place] [address] Kavon Burnham MD [address] [place], [place] [id number] Isabela Lopez MD [facility] [address] [place] [address] ?[place] [address] [email or web address] ---- Signed (signature on file) Talia Ricardo MD 09/12/24 1304 ---- END OF REPORT SKYLER TA Reviewed date:09/10/2024 02:50:05 PM Interpretation: Performing Lab: Notes/Report: [address] [address] XRay Report Signed Patient: Maria Ines Kam MR#: [id number] 983 : 1940 Acct:[id number] Age/Sex: 84 / F ADM Date: 09/06/24 Loc: [facility]: Pj Choudhary MD Ordering Physician: Jeff Mcnair MD Date of Service: 09/09/24 Procedure(s): SKYLER TA Accession Number(s): [id number] cc: Vito Joel MD; Jeff Mcnair MD [...] by Fito Galindo MD in OV> 09/10/24 1108 DD/ 110 TD/TT: 09/10/24 110 Marketing Sales Consultant: [address] [address] XRay Report Signed Patient: Armin Kam MR#: [id number] 983 : 1940 Acct:[id number] Age/Sex: 84 / F ADM Date: 09/06/24 Loc: [facility]: Pj Choudhary MD Ordering Physician: Jeff Mcnair MD Date of Service: 09/09/24 Procedure(s): XR KUB Accession Number(s): [id number] cc: Vito Joel MD; Jeff Mcnair MD [...] by Fito Galindo MD in OV> 09/10/24 1108 DD/ 1107 TD/TT: 09/10/24 1107 Marketing Sales Consultant: SKYLER TA Reviewed date:09/10/2024 02:50:29 PM Interpretation: Performing Lab: Notes/Report: [address] [address] XRay Report Signed Patient: Maria Ines Kam MR#: [id number] 983 : 1940 Acct:[id number] Age/Sex: 84 / F ADM Date: 09/06/24 Loc: [facility]-[address]: Pj Choudhary MD Ordering Physician: Isabela Lopez MD Date of Service: 09/10/24 Procedure(s): XR KUB Accession Number(s): [id number] cc: Vito Joel MD; Isabela Lopez MD [...] 09/10/24 1249 DD/ 1248 TD/TT: 09/10/24 1248 Marketing Sales Consultant: [place] [address] XRay Report Signed Patient: Armin Kam MR#: [id number] 983 : 1940 Acct:[id number] Age/Sex: 84 / F ADM Date: 09/06/24 Loc: .S3 352-[address]: Pj Choudhary MD Ordering Physician: Isabela Lopez MD Date of Service: 09/10/24 Procedure(s): XR KUB Accession Number(s): [id number] cc: Vito Joel MD; Isabela Lopez MD [...] 09/10/24 1249 DD/ 1248 TD/TT: 09/10/24 1248 Marketing Sales Consultant: Complete Blood Count no Diff Reviewed date:09/11/2024 12:49:09 PM Interpretation: Performing Lab:[facility], [address] [place] [phone] Notes/Report: White Blood Count 14.1 4.8-10.8 X10*3/uL [...] Panel Reviewed date:09/11/2024 12:46:20 PM Interpretation: Performing Lab:[facility], [address] [place] [phone] Notes/Report: Sodium 143 135-145 mmol/L Potassium 3.0 [...] Electrolytes Reviewed date:09/12/2024 12:25:43 PM Interpretation: Performing Lab:[facility], [address] [place] [phone] Notes/Report: Sodium 143 135-145 mmol/L Potassium 3.4 3.3-5.1 mmol/L Chloride 105 96-108 mmol/L Carbon Dioxide 30 22-29 mmol/L Anion Gap 11 12-20 Phosphorus Reviewed date:09/11/2024 12:46:12 PM Interpretation: Performing Lab:[facility], [address] [place] [phone] Notes/Report: Phosphorus 2.8 2.7-4.5 mg/dL Magnesium Reviewed date:09/11/2024 12:46:04 PM Interpretation: Performing Lab:[facility], [address] [place] [phone] Notes/Report: Magnesium 2.4 1.6-2.6 mg/dL Albumin Level Reviewed date:09/11/2024 12:45:57 PM Interpretation: Performing Lab:[facility], [address] [place] [phone] Notes/Report: Albumin Level 2.8 3.5-5.0 g/dL Triglycerides Reviewed date:09/11/2024 12:45:50 PM Interpretation: Performing Lab:[facility], [address] [place] [phone] Notes/Report: Triglycerides 117 <150 mg/dL Desirable Triglyceride: less than 150 mg/dL Borderline High Triglyceride 150-199 mg/dL High Triglyceride: 200-499 mg/dL Very High Triglyceride: greater than or equal to 5OO mg/dL Hold Green Gel Reviewed date:09/11/2024 06:02:58 PM Interpretation: Performing Lab:[facility], [address] [place] [phone] Notes/Report: Hold Green Gel See Note Specimen held untested for 24 hours; Call to request Chemistry testing. Complete Blood Count no Diff Reviewed date:09/12/2024 01:55:00 PM Interpretation: Performing Lab:[facility], [address] [place] [phone] Notes/Report: White Blood Count 10.9 4.8-10.8 X10*3/uL [...] Panel Reviewed date:09/12/2024 12:38:34 PM Interpretation: Performing Lab:[facility], [address] [place] [phone] Notes/Report: Sodium 142 135-145 mmol/L Potassium 3.6 [...] Phosphorus Reviewed date:09/12/2024 12:20:25 PM Interpretation: Performing Lab:[facility], [address] [place] [phone] Notes/Report: Phosphorus 1.6 2.7-4.5 mg/dL Magnesium Reviewed date:09/12/2024 12:19:46 PM Interpretation: Performing Lab:[facility], [address] [place] [phone] Notes/Report: Magnesium 2.4 1.6-2.6 mg/dL Albumin Level Reviewed date:09/12/2024 12:15:39 PM Interpretation: Performing Lab:[facility], [address] [place] [phone] Notes/Report: Albumin Level 2.6 3.5-5.0 g/dL Glucose, Whole Blood Reviewed date:09/12/2024 12:15:20 PM Interpretation: Performing Lab:[facility], [address] [place] [phone] Notes/Report: Glucose, Whole Blood 142 60-115 mg/dL METER # : [id number] Glucose, Whole Blood Reviewed date:09/13/2024 07:01:40 PM Interpretation: Performing Lab:[facility], [address] [place] [phone] Notes/Report: Glucose, Whole Blood 120 60-115 mg/dL METER # : [id number] Glucose, Whole Blood Reviewed date:09/13/2024 07:01:40 PM Interpretation: Performing Lab:[facility], [address] [place] [phone] Notes/Report: Glucose, Whole Blood 123 60-115 mg/dL METER # : [id number] Complete Blood Count no Diff Reviewed date:09/13/2024 07:01:40 PM Interpretation: Performing Lab:[facility], [address] [place] [phone] Notes/Report: White Blood Count 9.9 4.8-10.8 X10*3/uL [...] Panel Reviewed date:09/13/2024 07:01:40 PM Interpretation: Performing Lab:[facility], [address] [place] [phone] Notes/Report: Sodium 140 135-145 mmol/L Potassium 3.8 [...] Phosphorus Reviewed date:09/13/2024 07:01:40 PM Interpretation: Performing Lab:[facility], [address] [place] [phone] Notes/Report: Phosphorus 3.3 2.7-4.5 mg/dL Magnesium Reviewed date:09/13/2024 07:01:40 PM Interpretation: Performing Lab:[facility], [address] [place] [phone] Notes/Report: Magnesium 2.3 1.6-2.6 mg/dL Albumin Level Reviewed date:09/13/2024 07:01:40 PM Interpretation: Performing Lab:[facility], [address] [place] [phone] Notes/Report: Albumin Level 2.5 3.5-5.0 g/dL Glucose, Whole Blood Reviewed date:09/13/2024 07:01:40 PM Interpretation: Performing Lab:[facility], [address] [place] [phone] Notes/Report: Glucose, Whole Blood 147 60-115 mg/dL METER # : [id number] XR chest 1V Reviewed date:09/14/2024 12:39:53 PM Interpretation: Performing Lab: Notes/Report: [address] [place] [address] XRay Report Signed Patient: Maria Ines Kam MR#: [id number] 983 : 1940 Acct:[id number] Age/Sex: 84 / F ADM Date: 09/06/24 Loc: .S3 352-[address]: Kavon Burnham MD Ordering Physician: Jesus Galaviz MD Date of Service: 09/13/24 Procedure(s): XR chest 1V Accession Number(s): [id number] cc: Vito Joel MD; Jesus Galaviz MD [...] by Hilton Phillip MD in OV> 09/13/24 8348 DD/ 26 TD/TT: 09/13/242326 Marketing Sales Consultant: [facility] [address] [place] [address]. [place] [address] XRay Report Signed Patient: Armin Kam MR#: [id number] 983 : 1940 Acct:[id number] Age/Sex: 84 / F ADM Date: 09/06/24 Loc: [facility] 352-[address]: Xavier Burnham MD Ordering Physician: Jesus Galaviz MD Date of Service: 09/13/24 Procedure(s): XR jose st 1V Accession Number(s): [id number] cc: Vito Joel MD; Jesus Galaviz MD [...] in OV> 09/13/242327 DD/ 26 TD/TT: 09/13/242326 Marketing Sales Consultant: Glucose, Whole Blood Reviewed date:09/13/2024 07:01:40 PM Interpretation: Performing Lab:[facility], [address] [place] [phone] Notes/Report: Glucose, Whole Blood 142 60-115 mg/dL METER # : [id number] Glucose, Whole Blood Reviewed date:09/13/2024 07:01:40 PM Interpretation: Performing Lab:[facility], [address] [place] [address] Notes/Report: Glucose, Whole Blood 111 60-115 mg/dL METER # : [id number] Glucose, Whole Blood Reviewed date:09/14/2024 12:39:53 PM Interpretation: Performing Lab:[facility], [address] [place] [phone] Notes/Report: Glucose, Whole Blood 123 60-115 mg/dL METER # : [id number] XR chest 1V Reviewed date:09/14/2024 12:39:53 PM Interpretation: Performing Lab: Notes/Report: [address] [address] XRay Report Signed Patient: Maria Ines Kam MR#: [id number] 983 : 1940 Acct:[id number] Age/Sex: 84 / F ADM Date: 09/06/24 Loc: S3 352-[address]: Kavon Burnham MD Ordering Physician: Jesus Galaviz MD Date of Service: 09/13/24 Procedure(s): XR chest 1V Accession Number(s): [id number] cc: Vito Joel MD; Jesus Galaviz MD [...] Hilton Phillip MD in OV> 09/13/24 2343 DD/ 2341 TD/TT: 09/13/24 2341 Marketing Sales Consultant: [address] [address] XRay Report Signed Patient: Armin Kam MR#: [id number] 983 : 1940 Acct:[id number] Age/Sex: 84 / F ADM Date: 09/06/24 Loc: [facility] 352-[address]: Xavier Burnham MD Ordering Physician: Jesus Galaviz MD Date of Service: 09/13/24 Procedure(s): XR jose st 1V Accession Number(s): [id number] cc: Vito Joel MD; Jesus Galaviz MD [...] in OV> 09/13/242342 DD/ 40 TD/TT: 09/13/242340 Marketing Sales Consultant: Complete Blood Count no Diff Reviewed date:09/14/2024 12:39:53 PM Interpretation: Performing Lab:[facility], [address] [place] [phone] Notes/Report: White Blood Count 11.0 4.8-10.8 X10*3/uL [...] Panel Reviewed date:09/14/2024 12:39:53 PM Interpretation: Performing Lab:[facility], [address] [place] [phone] Notes/Report: Sodium 140 135-145 mmol/L Potassium 4.3 [...] Phosphorus Reviewed date:09/14/2024 12:39:53 PM Interpretation: Performing Lab:[facility], [address] [place] [phone] Notes/Report: Phosphorus 4.0 2.7-4.5 mg/dL Magnesium Reviewed date:09/14/2024 12:39:53 PM Interpretation: Performing Lab:[facility], [address] [place] [phone] Notes/Report: Magnesium 2.3 1.6-2.6 mg/dL Albumin Level Reviewed date:09/14/2024 12:39:53 PM Interpretation: Performing Lab:[facility], [address] [place] [phone] Notes/Report: Albumin Level 2.7 3.5-5.0 g/dL Glucose, Whole Blood Reviewed date:09/14/2024 12:39:53 PM Interpretation: Performing Lab:[facility], [address] [place] [phone] Notes/Report: Glucose, Whole Blood 133 60-115 mg/dL METER # : [id number] Glucose, Whole Blood Reviewed date:09/14/2024 12:36:25 PM Interpretation: Performing Lab:[facility], [address] [place] [phone] Notes/Report: Glucose, Whole Blood 117 60-115 mg/dL METER # : [id number] Glucose, Whole Blood Reviewed date:09/15/2024 09:58:24 AM Interpretation: Performing Lab:[facility], [address] [place] [phone] Notes/Report: Glucose, Whole Blood 113 60-115 mg/dL METER # : [id number] Glucose, Whole Blood Reviewed date:09/15/2024 12:23:20 PM Interpretation: Performing Lab:[facility], [address] [place] [phone] Notes/Report: Glucose, Whole Blood 126 60-115 mg/dL METER # : [id number] Comprehensive Met. Panel Reviewed date:09/15/2024 12:23:19 PM Interpretation: Performing Lab:[facility], [address] [place] [phone] Notes/Report: Sodium 139 135-145 mmol/L Potassium 4.5 [...] Panel Reviewed date:09/15/2024 12:23:19 PM Interpretation: Performing Lab:[facility], [address] [place] [phone] Notes/Report: Sodium 140 135-145 mmol/L Potassium 4.7 [...] Phosphorus Reviewed date:09/15/2024 12:23:19 PM Interpretation: Performing Lab:[facility], [address] [place] [phone] Notes/Report: Phosphorus 4.0 2.7-4.5 mg/dL Magnesium Reviewed date:09/15/2024 12:23:19 PM Interpretation: Performing Lab:[facility], [address] [place] [phone] Notes/Report: Magnesium 2.3 1.6-2.6 mg/dL Albumin Level Reviewed date:09/15/2024 12:23:20 PM Interpretation: Performing Lab:[facility], [address] [place] [phone] Notes/Report: Albumin Level 2.8 3.5-5.0 g/dL Glucose, Whole Blood Reviewed date:09/15/2024 12:23:20 PM Interpretation: Performing Lab:[facility], [address] [place] [phone] Notes/Report: Glucose, Whole Blood 136 60-115 mg/dL METER # : [id number] Glucose, Whole Blood Reviewed date:09/15/2024 12:44:30 PM Interpretation: Performing Lab:[facility], [address] [place] [phone] Notes/Report: Glucose, Whole Blood 119 60-115 mg/dL METER # : [id number] Glucose, Whole Blood Reviewed date:09/17/2024 05:17:50 PM Interpretation: Performing Lab:[facility], [address] [place] [phone] Notes/Report: Glucose, Whole Blood 93 60-115 mg/dL METER # : [id number] Glucose, Whole Blood Reviewed date:09/17/2024 05:17:50 PM Interpretation: Performing Lab:[facility], [address] [place] [phone] Notes/Report: Glucose, Whole Blood 131 60-115 mg/dL METER # : [id number] Basic Metabolic Panel Reviewed date:09/17/2024 05:17:50 PM Interpretation: Performing Lab:[facility], [address] [place] [phone] Notes/Report: Sodium 140 135-145 mmol/L Potassium 4.2 [...] Phosphorus Reviewed date:09/17/2024 05:17:50 PM Interpretation: Performing Lab:[facility], [address] [place] [phone] Notes/Report: Phosphorus 3.6 2.7-4.5 mg/dL Magnesium Reviewed date:09/17/2024 05:17:50 PM Interpretation: Performing Lab:[facility], [address] [place] [phone] Notes/Report: Magnesium 2.3 1.6-2.6 mg/dL Albumin Level Reviewed date:09/17/2024 05:17:50 PM Interpretation: Performing Lab:[facility], [address] [place] [phone] Notes/Report: Albumin Level 2.9 3.5-5.0 g/dL Glucose, Whole Blood Reviewed date:09/17/2024 05:17:50 PM Interpretation: Performing Lab:[facility], [address] [place] [phone] Notes/Report: Glucose, Whole Blood 126 60-115 mg/dL METER # : [id number] Glucose, Whole Blood Reviewed date:09/17/2024 05:17:50 PM Interpretation: Performing Lab:[facility], [address] [place] [phone] Notes/Report: Glucose, Whole Blood 133 60-115 mg/dL METER # : [id number] Glucose, Whole Blood Reviewed date:09/17/2024 05:17:50 PM Interpretation: Performing Lab:[facility], [address] [place] [phone] Notes/Report: Glucose, Whole Blood 137 60-115 mg/dL METER # : [id number] Glucose, Whole Blood Reviewed date:09/17/2024 05:17:50 PM Interpretation: Performing Lab:[facility], [address] [place] [phone] Notes/Report: Glucose, Whole Blood 131 60-115 mg/dL METER # : [id number] Basic Metabolic Panel Reviewed date:09/17/2024 05:17:50 PM Interpretation: Performing Lab:[facility], [address] [place] [phone] Notes/Report: Sodium 140 135-145 mmol/L Potassium 4.4 [...] Phosphorus Reviewed date:09/17/2024 05:17:50 PM Interpretation: Performing Lab:[facility], [address] [place] [phone] Notes/Report: Phosphorus 3.6 2.7-4.5 mg/dL Magnesium Reviewed date:09/17/2024 05:17:50 PM Interpretation: Performing Lab:[facility], [address] [place] [phone] Notes/Report: Magnesium 2.1 1.6-2.6 mg/dL Albumin Level Reviewed date:09/17/2024 05:17:50 PM Interpretation: Performing Lab:[facility], [address] [place] [phone] Notes/Report: Albumin Level 2.9 3.5-5.0 g/dL Glucose, Whole Blood Reviewed date:09/17/2024 05:17:50 PM Interpretation: Performing Lab:[facility], [address] [place] [phone] Notes/Report: Glucose, Whole Blood 126 60-115 mg/dL METER # : [id number] Glucose, Whole Blood Reviewed date:09/17/2024 05:17:50 PM Interpretation: Performing Lab:[facility], [address] [place] [phone] Notes/Report: Glucose, Whole Blood 100 60-115 mg/dL METER # : [id number] Glucose, Whole Blood Reviewed date:09/18/2024 12:00:44 PM Interpretation: Performing Lab:[facility], [address] [place] [phone] Notes/Report: Glucose, Whole Blood 111 60-115 mg/dL METER # : [id number] Glucose, Whole Blood Reviewed date:09/18/2024 12:00:44 PM Interpretation: Performing Lab:[facility], [address] [place] [phone] Notes/Report: Glucose, Whole Blood 111 60-115 mg/dL METER # : [id number] Hold Lav - Possible Hematolo gy Reviewed date:09/18/2024 12:00:44 PM Interpretation: Performing Lab:[facility], [address] [place] [phone] Notes/Report: Hold Lav - Possible Hematology SEE NOTE Specimen will be held untested for 8 hours. Call Hematology if testing is desired. Basic Metabolic Panel Reviewed date:09/18/2024 12:00:44 PM Interpretation: Performing Lab:[facility], [address] [place] [phone] Notes/Report: Sodium 136 135-145 mmol/L Potassium 4.4 [...] Phosphorus Reviewed date:09/18/2024 12:00:44 PM Interpretation: Performing Lab:[facility], [address] [place] [phone] Notes/Report: Phosphorus 3.3 2.7-4.5 mg/dL Magnesium Reviewed date:09/18/2024 12:00:44 PM Interpretation: Performing Lab:[facility], [address] [place] [phone] Notes/Report: Magnesium 2.1 1.6-2.6 mg/dL Albumin Level Reviewed date:09/18/2024 12:00:05 PM Interpretation: Performing Lab:[facility], [address] [place] [phone] Notes/Report: Albumin Level 2.7 3.5-5.0 g/dL Triglycerides Reviewed date:09/18/2024 12:00:44 PM Interpretation: Performing Lab:[facility], [address] [place] [phone] Notes/Report: Triglycerides 241 <150 mg/dL Desirable Triglyceride: less than 150 mg/dL Borderline High Triglyceride 150-199 mg/dL High Triglyceride: 200-499 mg/dL Very High Triglyceride: greater than or equal to 5OO mg/dL Glucose, Whole Blood Reviewed date:09/18/2024 12:00:44 PM Interpretation: Performing Lab:[facility], [address] [place] [phone] Notes/Report: Glucose, Whole Blood 137 60-115 mg/dL METER # : [id number] Glucose, Whole Blood Reviewed date:09/18/2024 12:08:03 PM Interpretation: Performing Lab:[facility], [address] [place] [phone] Notes/Report: Glucose, Whole Blood 139 60-115 mg/dL METER # : [id number] Glucose, Whole Blood Reviewed date:09/19/2024 10:03:03 AM Interpretation: Performing Lab:[facility], [address] [place] [phone] Notes/Report: Glucose, Whole Blood 120 60-115 mg/dL METER # : [id number] Glucose, Whole Blood Reviewed date:09/19/2024 10:03:03 AM Interpretation: Performing Lab:[facility], [address] [place] [phone] Notes/Report: Glucose, Whole Blood 110 60-115 mg/dL METER # : [id number] Hold Lav - Possible Hematolo gy Reviewed date:09/19/2024 10:03:03 AM Interpretation: Performing Lab:[facility], [address] [place] [phone] Notes/Report: Hold Lav - Possible Hematology SEE NOTE Specimen will be held untested for 8 hours. Call Hematology if testing is desired. Basic Metabolic Panel Reviewed date:09/19/2024 10:03:03 AM Interpretation: Performing Lab:[facility], [address] [place] [phone] Notes/Report: Sodium 133 135-145 mmol/L Potassium 4.1 [...] Phosphorus Reviewed date:09/19/2024 10:03:03 AM Interpretation: Performing Lab:[facility], [address] [place] [phone] Notes/Report: Phosphorus 3.1 2.7-4.5 mg/dL Magnesium Reviewed date:09/19/2024 10:03:03 AM Interpretation: Performing Lab:[facility], [address] [place] [phone] Notes/Report: Magnesium 1.9 1.6-2.6 mg/dL Albumin Level Reviewed date:09/19/2024 10:03:03 AM Interpretation: Performing Lab:[facility], [address] [place] [phone] Notes/Report: Albumin Level 2.6 3.5-5.0 g/dL Glucose, Whole Blood Reviewed date:09/19/2024 10:03:03 AM Interpretation: Performing Lab:[facility], [address] [place] [phone] Notes/Report: Glucose, Whole Blood 126 60-115 mg/dL METER # : [id number] Glucose, Whole Blood Reviewed date:09/19/2024 12:02:47 PM Interpretation: Performing Lab:[facility], [address] [place] [phone] Notes/Report: Glucose, Whole Blood 138 60-115 mg/dL METER # : [id number] Glucose, Whole Blood Reviewed date:09/20/2024 03:15:40 PM Interpretation: Performing Lab:[facility], [address] [place] [phone] Notes/Report: Glucose, Whole Blood 107 60-115 mg/dL METER # : [id number] Glucose, Whole Blood Reviewed date:09/20/2024 03:16:10 PM Interpretation: Performing Lab:[facility], [address] [place] [phone] Notes/Report: Glucose, Whole Blood 130 60-115 mg/dL METER # : [id number] Basic Metabolic Panel Reviewed date:09/20/2024 03:16:10 PM Interpretation: Performing Lab:[facility], [address] [place] [phone] Notes/Report: Sodium 134 135-145 mmol/L Potassium 3.8 [...] Phosphorus Reviewed date:09/20/2024 03:13:29 PM Interpretation: Performing Lab:[address] [phone] Notes/Report: Phosphorus 3.1 2.7-4.5 mg/dL Magnesium Reviewed date:09/20/2024 03:13:21 PM Interpretation: Performing Lab:[address] [phone] Notes/Report: Magnesium 1.9 1.6-2.6 mg/dL Albumin Level Reviewed date:09/20/2024 03:13:14 PM Interpretation: Performing Lab:[address] [phone] Notes/Report: Albumin Level 2.8 3.5-5.0 g/dL Glucose, Whole Blood Reviewed date:09/20/2024 03:16:10 PM Interpretation: Performing Lab:[address] [phone] Notes/Report: Glucose, Whole Blood 93 60-115 mg/dL METER # : [id number] CDiff Gene PCR Reviewed date:09/20/2024 03:13:07 PM Interpretation: Performing Lab:[address] [phone] Notes/Report: CDiff Gene PCR NEGATIVE Negative If C. difficile strongly suspected despite one negative test, a second test may be sent vs. empiric treatment for C. difficile infection. Glucose, Whole Blood Reviewed date:09/20/2024 03:16:10 PM Interpretation: Performing Lab:[facility], [address] [place] [address] Notes/Report: Glucose, Whole Blood 96 60-115 mg/dL METER # : [id number] Glucose, Whole Blood Reviewed date:09/20/2024 03:16:09 PM Interpretation: Performing Lab:[facility], [address] [place] [phone] Notes/Report: Glucose, Whole Blood 105 60-115 mg/dL METER # : [id number] US renal BI Reviewed date:11/06/2024 04:14:12 PM Interpretation: Performing Lab: Notes/Report: [facility] [address] [place] [address] [place] [address] Ultrasound Report Signed Patient: Maria Ines Kam MR#: [id number] 983 : 1940 Acct:[id number] Age/Sex: 84 / F ADM Date: 11/06/24 Loc: [facility] Attending Dr: Cyndy CHO Ordering Physician: Cyndy Washington Date of Service: 11/06/24 Procedure(s): US renal BI Accession Number(s): [id number] cc: Vito Joel MD; Cyndy Washington CLINICAL [...] Galindo MD in OV> 11/06/24 1310 DD/ 1309 TD/TT: 11/06/24 1309 Marketing Sales Consultant: [facility] Primary [address] [place] [address] Ultrasound Report Signed Patient: Armin Kam MR#: [id number] 983 : 1940 Acct:[id number] Age/Sex: 84 / F ADM Date: 11/06/24 Loc: [facility] Attending Dr: Cyndy catalan [facility] Ordering Physician: Cyndy Washington Date of Service: 11/06/24 Procedure(s): US summer Alfaro Accession Number(s): [id number] cc: Vito Joel MD; Cyndy Washington [facility] CLINICAL HISTORY: R3 1.29 - Other microscopic [...] Galindo MD in OV> 11/06/24 1310 DD/ 1309 TD/TT: 11/06/24 1309 Marketing Sales Consultant: Silke Huffman Reviewed date:02/09/2025 04:39:48 PM Interpretation: Performing Lab:[facility], [address] [place] [phone] Notes/Report: Silke Huffman See Note Specimen held untested for 24 hours; Call to request Chemistry testing. Reason For Referral No Information Medications Medication SIG (Take, Route, Frequency, Duration) Notes Start Date End Date Status Nystatin-Triamcinolone 696923-1.1 UNIT/GM 1 application to affected area Externally Twice a day for 30 days 09/21/2017 Not-Taking Furosemide 20 MG 1 tablet Orally Once a day for 90 days 12/28/2024 Active amLODIPine Besylate 10 MG TAKE 1 TABLET BY MOUTH DAILY. for 90 Active Atorvastatin Calcium 80 MG TAKE 1 TABLET DAILY Active Molnupiravir 200 MG 4 capsules Orally ev dara 12 hrs for 5 day(s) 03/23/2024 Active carBAMazepine 200 MG TAKE 1 TABLET TWICE A DAY Orally Twice a day Active Aspir-81 81 MG 1 tablet Orally Once a day for 30 day(s) Active Immunizations Vaccine Route Administration Date Status [...] was given the vaccine at [facility] in [place]. 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 (476924667) Diabetic autonomic neuropathy associated with type 2 diabetes mellitus (E11.43) Active confirmed Problem 030259929 History of endom etrial cancer (Z85.42) Active confirmed Problem 328232076 Pure hypercholesterolemia (E78.00) Active confirmed Problem 681577525 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) Active confirmed Problem Intermittent spinal claudication (713761837) Intermittent spinal claudication (G95.19) Active confirmed Vital Signs Blood pressure diastolic 60 mm Hg 02/16/2025 Height 65.25 in 02/16/2025 Blood pressure systolic 132 mm Hg 02/16/2025 Weight 175 lbs 02/16/2025 BMI 28.9 kg/m2 02/16/2025 Encounters Encounter Location Date Provider Diagnosis Vito Joel MD [facility] [address] [place] [address] [id number] 07/06/2024 Vito Joel Blood tests for rout ine general physical examination Z00.00 ; Essential hypertension I10 ; Prediabetes R73.09 and Pure hypercholesterolemia E78.00 Vito Joel MD [address] [place] [address] Drive [address] [place] [address] [id number] 02/09/2025 Vito Joel Prediabetes R73.09 a nd Pure hypercholesterolemia E78.00 Vito Joel MD [address] [place] [address] Drive [address] [place] [address] [id number] 07/13/2024 Vito Joel Essential hypertensi on I10 ; Annual physical exam Z00.00 ; Pure hypercholesterolemia E78.00 ; 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 ; Diabetic autonomic neuropathy associated with type 2 diabetes mellitus E11.43 ; Colon cancer screening Z12.11 and Depression screening Z13.31 Vito Joel MD [address] [place] [address] Drive [address] [place] [address] [id number] 10/30/2024 Vito Joel Small bowel obstruct ion K56.609 and Essential hypertension I10 Vito Joel MD [address] [place] [address] [id number] 11/28/2024 Vito Joel Essential hypertensi on I10 and Leg edema R60.0 Vito Joel MD [address] [place] [address] [id number] 12/28/2024 Vito Joel Prediabetes R73.09 a nd Edema leg R60.0 Vito Joel MD [address] [place] [address] [id number] 02/16/2025 Vito Joel Essential hypertensi on I10 ; Prediabetes R73.09 and Pure hypercholesterolemia E78.00 Vito Joel MD [address] [place] [address] [id number] 06/13/2024 Vito Joel Essential hypertensi on I10 Vito Joel MD [address] [place] [address] [id number] 07/11/2024 Vito Joel MD [address] [place] [address] [id number] 09/07/2024 Vito Joel MD [address] [place] [address] [id number] 09/20/2024 Vito Joel MD [address] [place] [address] [id number] 10/06/2024 Vito Joel MD [address] [place] [address] [id number] 10/19/2024 Vito Joel MD [address] [place] [address] [id number] 11/10/2024 Vito Joel Essential hypertensi on I10 Vito Joel MD [address] [place] [phone] 02/26/2025 Vito Joel Edema leg R60.0 Assessments Encounter Date Diagnosis (ICD Code) Assessment Notes Treatment Notes Treatment Clinical Notes Section Notes 07/06/[address] ine general physical examination (ICD-10 - Z00.00) 07/06/2024 Essential hypertensi on (ICD-10 - I10) 02/09/2025 Prediabetes (ICD-10 - R73.09) 07/13/2024 Essential hypertensi on (ICD-10 - I10) [...] understanding of medication and directions for use 02/16/2025 Essential hypertensi on (ICD-10 - I10) well controlled, will continue current regiment 06/13/2024 Essential hypertensi on (ICD-10 - I10) 11/10/2024 Essential hypertensi on (ICD-10 - I10) 02/26/2025 Edema leg (ICD-10 - R60.0) 07/06/2024 Prediabetes (ICD-10 - R73.09) 02/09/2025 Pure hypercholesterolemia (ICD-10 - E78.00) 07/13/2024 Pure hypercholesterolemia (ICD-10 - E78.00) stable, will contiue to monitor 10/30/2024 Essential hypertensi on (ICD-10 - I10) is doing well on amlodipine, will continue current regiment 02/16/2025 Prediabetes (ICD-10 - R73.09) doing well with good a1c, no need for medicatin at this time 07/06/2024 Pure hypercholesterolemia (ICD-10 - E78.00) 07/13/2024 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 (ICD-10 - G40.109) has not had any seizures in years 02/16/2025 Pure hypercholesterolemia (ICD-10 - E78.00) is a little high, will continue to monitor, advised on diet 07/13/2024 Diabetic autonomic neuropathy associated with type 2 diabetes mellitus (ICD-10 - E11.43) sugars well controlled, no need for medication at this time 07/13/2024 Colon cancer screeni ng (ICD-10 - Z12.11) guaiac negative 07/13/2024 Depression screening (ICD-10 - Z13.31) negative screen Plan Of Treatment Pending Test Test Name Order Date Electrocardiogram (EKG) 11/25/2012 CARDIOVASCULAR STRESS TEST 11/12/2022 Next Appt Details Provider Name:Vito arizar, 07/10/2025 08:00:00 AM, [address] [place] [address], [address], [phone], Provider Name:Vito Johnson ier, 07/17/2025 01:00:00 PM, [address] [place] [address], [place] [address], [place], [place], [phone], Insurance Providers Payer Name Payer Address Payer Phone Subscriber Number Group Number Insured Name Patient Relationship to Insured Coverage Start Date Coverage End Date [facility] P [employer] [id number] [place] [phone] [id number] Maria Ines Kam Self - patient is the insured Medical (General) History Medical History History ICD Code hysterectomy (2002) and oopherectomy endometrial cancer - 200211/24/2012 - refuses Colonsco py 2013; REFUSED COLONOSCOPY - DON'T ASK AGAIN 08/17/16 Prediabetes R73.09 Prediabetes undefined Surgical History Surgery Date(Month/Year) left hip replacement 07/2010 right hip replacement 07/1994
--- OUTSIDE RECORDS SUMMARY | 2025-05-29 12:52 | XMS_ITS | Clinical Summary ---
Author Organization [facility] Address [address] [place] [phone] Phone Care Team Providers Care Assistant Women'S Soccer Coach Name Role Phone Vito Joel MD Primary [...] file Medical Devices Not on file Insurance [employer] TOTAL CHOICE INDEMNITY [employer] TOTAL CHOICE INDEMNITY [facility] TOTAL CHOICE INDEMNITY [employer] [facility] TOTAL CHOICE [facility]MN[facility] IN[facility]MNITY Care Teams Assistant Women'S Soccer Coach Relationship Specialty Start Date End Date Vito Joel MD [address] [place] [address] [place] [address] PCP - General Internal Medicine 09/28/24 Additional Source Comments The information contained in this document represents components of the legal health record. It is not the complete legal health record.[facility]
--- OUTSIDE RECORDS SUMMARY | 2025-05-29 12:54 | XMS_ITS | Patient Health Record ---
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 Name Role Phone Vito Joel MD Primary Care Provider Irais Mcghee Unavailable [phone] Allergies No Known Allergies Reason For Referral No Information Medications Medication SIG (Take, Route, Frequency, Duration) Notes Start Date End Date Status Aspirin 75 MG 1 tablet Orally Once a day Active Atorvastatin Calcium 80 MG Oral; Duratio n: 90 Days Active carBAMazepine 200 MG 1 tablet Orally Twi ce a day Active Night Splint AFO - L1930 1 wear at rest; Duration: 30 days Not-Taking Furosemide 40 MG Oral; Duration: 30 Days Active Prinivil 10 MG 1 tablet Orally Once a day; Duration: 30 day(s) Not-Taking Lipitor 80 MG 1 tablet Orally Once a day Not-Taking TEGretol 100 MG/5ML 5 ml Orally Three times a day; Duration: 30 day(s) Not-Taking Lisinopril 10 MG 1 tablet Orally Once a day Active Immunizations Vaccine Route Administration Date Status Comme nts Influenza Unknown 04/04/2025 Administered Social History Tobacco Use: Social History Observation Description Date Details (start date - stop date) Never Smoker NA - NA Alcohol Screen Question Answer Notes Did you have a drink contain ing alcohol in the past year? Yes How often did you have a dri nk containing alcohol in the past year? 2 to 4 times a month (2 points) Points 2 Interpretation Negative Tobacco use other than smoking: Question Answer Notes Are you an other tobacco user? No Tobacco Control (Standard) Question Answer Notes Tobacco use: Nonsmoker AUDIT-C (Standard) Question Answer Notes Did you have a drink containing alcohol in the p ast year? No Points 0 Interpretation Negative Problems Problem Type SNOMED Code ICD Code Onset Dates Problem Status W/U Status Risk Notes Problem Tinea unguium (135126976) Tinea unguium (B35.1) Active confirmed Vital Signs Blood pressure diastolic 72 mm Hg 05/07/2025 Height 5 ft 5 in in 05/07/2025 Blood pressure systolic 120 mm Hg 05/07/2025 Weight 175 lbs 05/07/2025 BMI 29.12 kg/m2 05/07/2025 Procedures Procedure Date Ordered Date Performed Result Body Sit e 36373-SKVKLOM NAIL, 6 OR MORE 07/13/2024 N/A 97040 I&D ABSCESS- SIMPLE,SINGLE 07/13/2024 N/A 60813-[id number] NAIL, 6 OR MORE 11/06/2024 N/A 53105-LPINONF NAIL, 6 OR MORE 05/07/2025 N/A Encounters Encounter Location Date Provider Diagnosis [address] [address] 07/13/2024 Irais Black Pain in right foot [...] M79.675 and Abscess of toe, left L02.[address] [address] 11/06/2024 Irais Black Tinea unguium B35.1 ; Pain in right toe(s) M79.674 and Pain in left toe(s) M79.[address] [address] 05/07/2025 Irais Black Tinea unguium B35.1 ; Pain in right toe(s) M79.674 and Pain in left toe(s) M79.[address] [facility] [place] [address] 03/06/2025 [facility] Con[facility] [place] [address] [place] [address] 05/07/2025 Irais Prieto [facility] Encounter Date Diagnosis (ICD Code) Assessment Notes Treatment Notes Treatment Clinical Notes Section Notes 07/13/2024 Pain in right foot (ICD-10 - M79.671) 07/13/2024 Plantar fasciitis, bilateral (ICD-10 - M72.2) 11/06/2024 Tinea unguium (ICD-10 - B35.1) 11/06/2024 Pain in right toe(s) (ICD-10 - M79.674) 05/07/2025 Tinea unguium (ICD-10 - B35.1) 11/06/2024 Pain in left toe(s) (ICD-10 - M79.675) 05/07/2025 Pain in right toe(s) (ICD-10 - M79.674) 07/13/2024 Calcaneal spur, right foot (ICD-10 - M77.31) 07/13/2024 Other myositis of right foot (ICD-10 - M60.871) 05/07/2025 Pain in left toe(s) (ICD-10 - M79.675) 07/13/2024 Bursitis of right foot (ICD-10 - [...] Treatment Pending Test Test Name Order Date [id number]-[id number] NAIL, 6 OR MORE 11/08/2023 [id number] NAIL, 6 OR MORE 03/13/2024 51419-YVCGFBA NAIL, 6 OR MORE 07/13/2024 95643-HNRSEPE NAIL, 6 OR MORE 11/06/2024 56838-TBUIDHC NAIL, 6 OR MORE 05/07/2025 69513 I&D ABSCESS- SIMPLE,SINGLE 025 Next Appt Details Provider Name:Irais Prieto , 09/10/2025 10:30:00 AM, [address] [place], [address], Insurance Providers Payer Name Payer Address Payer Phone Subscriber Number Group Number Insured Name Patient Relationship to Insured Coverage Start Date Coverage End Date [facility] [address] [place] [address] [id number] Maria Ines Kam Self - patient [...] Date(Month/Year) historectomy left and right hip replacement 2531-1101 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
--- NOTE | ~2025-06-04 | FL_ITS ---
EXAMINATION: XR FLUOROSCOPY WITH IMAGES CLINICAL INFORMATION: ORIF COMPARISON: X-ray hand 05/28/2025 TECHNIQUE: Fluoroscopy time: 55 seconds DAP: 1.7 mGycm2 Images: 4 FINDINGS: Fluoroscopy provided in the operating room. There is internal fixation of the second metacarpal fracture. FL/FL guidance in OR IMPRESSION: Fluoroscopy provided in the operating room. See surgical report for details. Electronically signed by: Chemo Grady MD 06/07/2025 07:44 AM [facility]
--- NOTE | 2025-06-04 08:58 | MHC.SHP ---
Pre-Procedural Eval Section A - 24 Hr Update-Section A only Date of Service: 06/04/25 The patient is an INPATIENT: No Changes since office visit: No Cold of Flu in the past 2 weeks, No New Medical Problems, No Changes in Medication and No Patient answered all questions The patient has been examined within 24 hours of the surgical procedure. The History & Physical has been completed within 30 days and I have reviewed it.: Yes Section B - Complete if H&P > 30 days Chief Complaint: 2nd and 3rd metacapal bone Allergies: Allergies Allergy/AdvReac Type Severity Reaction Status Date / Time No Known Allergies Allergy Verified 05/28/25 13:35 Plan I have reviewed the history and physical and performed a pertinent physical examination on my patient. No changes have occurred unless specified. Time Spent With Patient Time: Total time managing care of this patient today ____ minutes.
--- NOTE | 2025-06-04 08:59 | W.PM.OPN ---
Operative Note Operative Note Date of Service: 06/04/25 Narrative: Operative Note Narrative: Preop diagnosis: 1. Right 2nd Metacarpal base fracture 2. Right 3rd metacarpal base fracture Postop diagnosis: Same Procedure: 1. Right 2nd Metacarpal base fracture closed reduction percutaneous pinning 2. Ulnar nerve block Surgeon: Mariah Pickard MD Furnace Repairer: None Anesthesia: General Anesthesia Findings: Metacarpal fracture Implants: 0.062 K-wire x1 Tourniquet time: None EBL: Minimal Specimen: None Drains: None Complications: None Disposition: Brought to the recovery room in stable condition Plan: Follow-up in 10-14 days for a wound check, postop radiographs and for placement in a short-arm cast or splint Anticipate K-wire removal in 4 weeks based on interval bony healing Educate the patient that full fracture healing anticipated in approximately 8-12 weeks. Indications: The patient is 85 years old with right 2nd and 3rd metacarpal base fractures . The risks and benefits of operative treatment, including but not limited to risk of damage to blood vessels, nerves, tendons, infection, recurrence, delayed or nonunion of fracture, persistent pain or numbness, incomplete resolution of preoperative symptoms, or need for further surgery were discussed with the patient and they wished to proceed with surgery. Procedure: Once consent was obtained patient was brought back to the operating suite and placed in the operating table in a supine position. . Perioperative antibiotics and general anesthesia was administered by the anesthesia team. A tourniquet was applied to the proximal aspect of the right upper extremity and the limb was prepped and draped in a standard surgical fashion. Tourniquet was not inflated during the case. The FluoroScan was used during the case to assist with our fracture reduction and placement of all implants. A closed reduction was performed on the patient's right 2nd metacarpal shaft fracture. I placed a single 0.062 K-wire retrograde through the head of the 2nd metacarpal extending proximally across the fracture site to the base of the metacarpal across the CMC joint and into the trapezoid. She had a lot of hand swelling, and I felt that 1 K-wire was sufficient. Fracture alignment was assessed for both angular and rotational malalignment. Once satisfied with our fracture reduction and implant placement, the K-wire was bent and cut short and pin caps applied. Final fluoroscopic images were then obtained. The wounds were copiously irrigated with normal saline. A local block was then performed by infiltrating about the fracture site with some 1% lidocaine with epinephrine for postop pain control. A Sterile dressing and finger spica splint was applied leaving the small and ring finger out so that she can pull up her pants.. The patient appears to have tolerated the procedure well and with no complications. All digits were well vascularized at the conclusion of the case.
[2025-06-04 10:08] VITALS: BMI 28.7
[2025-06-04 10:14] VITALS: BP 159/71; PULSE 71; RESP 17; TEMP 36.4; O2SAT 96
[2025-06-04] MEDS: Lactated Ringers 1,000 ML 100 ML IVCONT (10:30)
--- NOTE | 2025-06-04 11:58 | HO.ANESPROP2 ---
Documented by User: Madie Camacho NP 05/29/25 11:51 HPI - Anesthesia Eval Consult details Narrative: 85 yr old female for right 2nd Metacarpal CRPP vs ORIF s/p exploratory lap 09/2024 with GA ETT 7.0 H/O seizure disorder: stable on carbamazepine PMFSH Active Problems Active Problems: All Active Problems Fracture of base of third metacarpal bone of right hand (Acute) Fracture of base of second metacarpal bone of right hand (Acute) Lumbar spondylosis (Acute) Frequent falls (Acute) Piriformis syndrome of right side (Acute) Renal cyst (Acute) Urinary tract infection (Acute) Microscopic hematuria (Acute) Past Medical History Medical History Lumbar spondylosis Autonomic neuropathy due to type 2 diabetes mellitus History of seizure disorder Intermittent spinal claudication Neuropathy Localization-related (focal) (partial) symptomatic epilepsy and epileptic syndromes with simple partial seizures, not intractable, without status epilepticus Hypercholesteremia Essential hypertension Endometrial cancer Family History Family history of problems with anesthesia: No Surgical History Surgical History Hx of exploratory laparotomy (09/10/24) History of hysterectomy with bilateral oophorectomy History of Problems with Anesthesia: No Social History Social History Household Members: None Housing: Assisted Living Facility Housing Other:: [facility] Do you presently have visiting nurse or other home services: No Alcohol intake: current Alcohol intake frequency: holidays/special occasions only Patient Tobacco Use Status: Never used Tobacco Use of substances other than those prescribed or required for medical reasons: No Advance Directives: No Advance Directives Information Provided: Yes service: No Current occupational status: retired Current occupation: rt handed Meds Allergies Allergy/AdvReac Type Severity Reaction Status Date / Time No Known Allergies Allergy Verified 05/28/25 13:35 Home Medications ?Medication ?Instructions ?Recorded ?Confirmed ?Last Taken ?Type aspirin 81 mg tablet,delayed 81 mg PO DAILY 08/17/23 06/04/25 09/06/24 History release atorvastatin 80 mg tablet 80 mg PO BEDTIME 08/17/23 06/04/25 09/05/24 History carbamazepine 200 mg tablet 200 mg PO BID 08/17/23 06/04/25 06/03/25 History lisinopril 10 1 tab PO DAILY 10/12/24 06/04/25 Unknown History mg-hydrochlorothiazide 12.5 mg tablet furosemide 40 mg tablet 40 mg PO DAILY 05/28/25 06/04/25 Unknown History Exam Pertinent Lab Results Pertinent Lab Results: Laboratory Tests 09/14/24 09/20/24 05:35 05:54 WBC 11.0 H RBC 4.16 L Hgb 12.2 Hct 36.3 L Plt Count 326 Sodium 134 L Potassium 3.8 BUN 17 H Creatinine 0.57 Narrative Narrative: EKG 09/2024 Vent. Rate : 76 BPM Atrial Rate : 76 BPM P-R Int : 146 ms QRS Dur : 88 ms QT Int : 428 ms P-R-T Axes : 11 -16 75 degrees QTcB Int : 481 ms Normal sinus rhythm Minimal voltage criteria for LVH, may be normal variant ( R in aVL ) Nonspecific ST abnormality Abnormal ECG When compared with ECG of 30-Jul-2010 16:50, No significant changes seen Assessment and Plan Final Anesthetic Review Family History of Problems with Anesthesia: No History of Problems with Anesthesia: No Documented by User: Zari Arriola DO 06/04/25 12:00 [facility] Past Medical History Medical History Lumbar spondylosis Autonomic neuropathy due to type 2 diabetes mellitus History of seizure disorder Intermittent spinal claudication Neuropathy Localization-related (focal) (partial) symptomatic epilepsy and epileptic syndromes with simple partial seizures, not intractable, without status epilepticus Hypercholesteremia Essential hypertension Endometrial cancer Family History Family history of problems with anesthesia: No Surgical History Surgical History Hx of exploratory laparotomy (09/10/24) History of hysterectomy with bilateral oophorectomy History of Problems with Anesthesia: No Social History Social History Household Members: None Housing: Assisted Living Facility Housing Other:: [facility] Do you presently have visiting nurse or other home services: No Alcohol intake: current Alcohol intake frequency: holidays/special occasions only Patient Tobacco Use Status: Never used Tobacco Use of substances other than those prescribed or required for medical reasons: No Advance Directives: No Advance Directives Information Provided: Yes service: No Current occupational status: retired Current occupation: rt handed Meds Allergies Allergy/AdvReac Type Severity Reaction Status Date / Time No Known Allergies Allergy Verified 05/28/25 13:35 Home Medications ?Medication ?Instructions ?Recorded ?Confirmed ?Last Taken ?Type aspirin 81 mg tablet,delayed 81 mg PO DAILY 08/17/23 06/04/25 09/06/24 History release atorvastatin 80 mg tablet 80 mg PO BEDTIME 08/17/23 06/04/25 09/05/24 History carbamazepine 200 mg tablet 200 mg PO BID 08/17/23 06/04/25 06/03/25 History lisinopril 10 1 tab PO DAILY 10/12/24 06/04/25 Unknown History mg-hydrochlorothiazide 12.5 mg tablet furosemide 40 mg tablet 40 mg PO DAILY 05/28/25 06/04/25 Unknown History Exam Exam Date and Time: 06/04/25 1155 Height,Weight and Vital Signs: Height 5 ft 5.5 in Weight 79.4 kg Vital Signs Temperature 97.6 F 06/04/25 10:14 Pulse Rate 71 06/04/25 10:14 Respiratory Rate 17 06/04/25 10:14 Blood Pressure 159/71 H 06/04/25 10:14 Pulse Oximetry 96 06/04/25 10:14 Oxygen Delivery Method Room Air 06/04/25 10:14 Temperature 97.6 F 06/04/25 10:14 Pulse Rate 71 06/04/25 10:14 Respiratory Rate 17 06/04/25 10:14 Blood Pressure 159/71 H 06/04/25 10:14 Pulse Oximetry 96 06/04/25 10:14 Oxygen Delivery Method Room Air 06/04/25 10:14 Airway Mallampati Class: III TM Dist: >3cm Neck ROM: Full Loose/Missing/Broken Teeth: No (patient denies any loose or broken teeth) Heart: S1S2 Lungs: CTAB Assessment and Plan Assessment Anesthesia Assessment: Anesthesia Plan Discussed and Chart Reviewed Final Anesthetic Review Family History of Problems with Anesthesia: No History of Problems with Anesthesia: No NPO: Yes ASA Class: III Final Preanesthetic Review: No Changes in Pt Med Stat, Meds/Allgs Chart Reviewed, Consent Obtained/Reviewed and Anes Risks/Benef Reviewed Patient Risk: Low Procedure Risk: Low Anesthetic Plan Anesthetic Plan: GA and Agree w/ Assess. and Plan Disposition: Standard PACU
[2025-06-04 13:04] VITALS: BP 141/66; PULSE 83; RESP 16; TEMP 36.1; O2SAT 99
[2025-06-04 13:09] VITALS: BP 144/61; PULSE 74; RESP 18; O2SAT 99
[2025-06-04 13:14] VITALS: BP 141/63; PULSE 79; RESP 16; O2SAT 96
[2025-06-04 13:19] VITALS: BP 138/61; PULSE 73; RESP 16; O2SAT 94
[2025-06-04 13:34] VITALS: BP 143/70; PULSE 65; RESP 15; TEMP 36.5; O2SAT 95
== END 2025-06-04 14:09 | disposition home or self-care (01) ==
PROVIDERS: PCP Internal Medicine; Visit Provider Orthopaedic Surgery
PROC: (CPT 26608; principal; 2025-06-04 11:40)
DX: S62.320A Displaced fracture of shaft of second metacarpal bone, right hand, initial encounter for closed fracture (principal); S62.342A Nondisplaced fracture of base of third metacarpal bone, right hand, initial encounter for closed fracture; M79.89 Other specified soft tissue disorders; X58.XXXA Exposure to other specified factors, initial encounter; Y93.9 Activity, unspecified; Y92.9 Unspecified place or not applicable; Y99.9 Unspecified external cause status; Z91.81 History of falling; E11.43 Type 2 diabetes mellitus with diabetic autonomic (poly)neuropathy; M47.816 Spondylosis without myelopathy or radiculopathy, lumbar region; G40.909 Epilepsy, unspecified, not intractable, without status epilepticus; G95.19 Other vascular myelopathies; E78.00 Pure hypercholesterolemia, unspecified; I10 Essential (primary) hypertension; Z85.42 Personal history of malignant neoplasm of other parts of uterus; Z90.710 Acquired absence of both cervix and uterus; Z79.1 Long term (current) use of non-steroidal anti-inflammatories (NSAID); Z79.01 Long term (current) use of anticoagulants
CPT/HCPCS: 26608; J0131; J0690; J1100; J2003; J2004; J2371; J2405; J2704; J3010

== ENCOUNTER → 2025-06-04 09:48 | Outpatient (BNV) | payer OTHER, SELFPAY | PROVIDERS: PCP Internal Medicine; Visit Provider Orthopaedic Surgery | DX: S62.310A Displaced fracture of base of second metacarpal bone, right hand, initial encounter for closed fracture (principal); S62.312A Displaced fracture of base of third metacarpal bone, right hand, initial encounter for closed fracture | CPT/HCPCS: 26608 ==

== ENCOUNTER 2025-06-20 10:55 | Outpatient (AMB) | payer OTHER, SELFPAY ==
--- OUTSIDE RECORDS SUMMARY | 2023-12-21 04:30 | XMS_ITS ---
Author Organization [facility] Address [address] [place] [address] Care Team Providers Care Associate Merchant Name Role Phone Vito Joel MD Primary Care Provider Horace Irais Sunshine Unavailable [phone] Gerald Alan Unavailable [phone] REASON FOR VISIT wrong patient Encounters Encounter Location Date Provider Diagnosis [address] [address] 12/21/2023 Gerald Alan Plan Of Treatment Next Appt Details Provider Name:Irais Prieto , 09/10/2025 10:30:00 AM, [address] [place], [address], Progress Notes * KAMMaria Ines ADOB:[birth year] (85 yo F)Acc No.[id number]:12/21/2023 Progress Notes Patient: Maria Ines ALFONSO Provider: Ophelia Alan DPM :1940 A ge:83 Y S ex:Female Date:12/21/2023 Address: [address] [place], [place] Pcp:Vito Joel MD Subjective: * Chief Complaints: * 1 . Wrong patient. * Medical History: Objective: * Vitals: Assessment: Plan: * Treatment: * Images: * The named appointment provid er may or may not be the originator of this progress note, and it is not deemed complete until electronically signed by the appointment provider. Sign off status: Pending * Provider: Ophelia Alan DPM Date: 0 12/21/2023 Generated for Chey winslow/Sofie/Ez on: 1 08/21/2024 02:16 PM EST
--- OUTSIDE RECORDS SUMMARY | 2024-09-20 15:31 | XMS_ITS ---
Author Organization Vito Joel MD Address [address] [place] [address] [phone] Care Team Providers Care Real Estate Processor Name Role Phone Vito Joel Primary Care Provider REASON FOR VISIT discharge Encounters Encounter Location Date Provider Diagnosis Vito Joel MD 10 [facility] [address] [place] [address] [phone] 09/20/2024 Vito Joel Plan Of Treatment Next Appt Details Provider Name:Vito Johnson ier, 07/10/2025 08:00:00 AM, [address] [place] [address], [address], [phone], Provider Name:Vito Johnson ier, 07/17/2025 01:00:00 PM, [address] [place] [address], [address] [place] [address], [phone], Progress Notes * Maria Ines KAM ADOB:[birth year] (84 yo F)Acc No.[id number]:09/20/2024 Patient: Isacc Maria Ines MORTENSEN :1940 A ge:84 Y S ex:Female Address:[address] [place] [address] * true * Date: Generated for Chey winslow/Sofie/Ez on: 08/21/2024 02:15 PM EST
--- OUTSIDE RECORDS SUMMARY | 2024-10-06 04:41 | XMS_ITS ---
Author Organization Vito Joel MD Address [address] [place] [address] [phone] Care Team Providers Care Promotional Marketing Agent Name Role Phone Vito Joel Primary Care Provider REASON FOR VISIT FYI Encounters Encounter Location Date Provider Diagnosis Vito Joel MD 10 [facility] [address] [place] [address] [phone] 10/06/2024 Vito Joel Plan Of Treatment Next Appt Details Provider Name:Vito Johnson ier, 07/10/2025 08:00:00 AM, [address] [place] [address], [address], [phone], Provider Name:Vito Johnson ier, 07/17/2025 01:00:00 PM, [address] [place] [address], [address] [place] [address], [phone], Progress Notes * Maria Ines KAM ADOB:[birth year] (84 yo F)Acc No.[id number]:10/06/2024 Patient: Isacc SHANNANPLACIDOMaria Ines :1940 A ge:84 Y S ex:Female Address:[place] [address] * true * Date: Generated for Chey winslow/Sofie/Ez on: 08/21/2024 02:16 PM EST
--- OUTSIDE RECORDS SUMMARY | 2024-10-19 04:28 | XMS_ITS ---
Author Organization Vito Joel MD Address [address] [place] [phone] Care Team Providers Care General Superintendent Name Role Phone Vito Joel Primary Care Provider REASON FOR VISIT RF amlodipine Medications Medication SIG (Take, Route, Frequency, Duration) Notes Start Date End Date Status amLODIPine Besylate 10 MG 1 tablet Orall y Once a day for 30 days 10/19/2024 Active Encounters Encounter Location Date Provider Diagnosis Vito Joel MD 10 [facility] [address] [place] [phone] 10/19/2024 Vito Joel Plan Of Treatment Medication Medication Name Sig Start Date Stop Date Notes amLODIPine Besylate 10 MG 1 tablet Orall y Once a day for 30 days 10/19/2024 Next Appt Details Provider Name:Vito romero, 07/10/2025 08:00:00 AM, [address] [place] [address], Suite [facility], [place], [place], [phone], Provider Name:Vito romero, 07/17/2025 01:00:00 PM, [address] [place] [address], [address], [phone], Progress Notes * Maria Ines KAM ADOB:[birth year] (84 yo F)Acc No.[id number]:10/19/2024 Patient: Maria Ines ALFONSO :1940 A ge:84 Y S ex:Female Address:[address] [place] [address] * Refills Start amLODIPine Besylate Tablet, 10 MG, Orally, 30, 1 tablet, Once a day, 30 days, Refills=5 * true * Date: Generated for Chey winslow/Sofie/Clementsmitting on: 1 08/21/2024 02:15 PM EST
--- OUTSIDE RECORDS SUMMARY | 2024-10-30 06:30 | XMS_ITS ---
Author Organization Vito Joel MD Address [address] [place], [place] [phone] Care Team Providers Care Derrick Worker Name Role Phone Vito Joel Primary Care Provider Allergies No Known Allergies REASON FOR VISIT PH/TCM Medications Medication SIG (Take, Route, Frequency, Duration) Notes Start Date End Date Status carBAMazepine 200 MG TAKE 1 TABLET TWICE A DAY Orally Twice a day Active Nystatin-Triamcinolone 171337-2.1 UNIT/GM 1 application to affected area Externally Twice a day for 30 days 09/21/2017 Not-Taking amLODIPine Besylate 10 MG 1 tablet Orall y Once a day 10/19/2024 Active Furosemide 20 MG 1 tablet Orally Once a day Active Aspir-81 81 MG 1 tablet Orally Once a day for 30 day(s) Active Molnupiravir 200 MG 4 capsules Orally ev dara 12 hrs for 5 day(s) 03/23/2024 Active Atorvastatin Calcium 80 MG TAKE 1 TABLET DAILY Orally Once a day Active Vital Signs Blood pressure systolic 142 mm Hg 10/31/19 25 Blood pressure diastolic 60 mm Hg 025 Height 65.25 in 10/30/2024 Weight 176 lbs 10/30/2024 BMI 29.06 kg/m2 10/30/2024 weight is down 6 pounds [facility] 07-13-24 Encounters Encounter Location Date Provider Diagnosis Vito Joel MD [address] [place] [address] [place] [phone] 10/30/2024 Vito Joel Small bowel obstruction K56.609 and Essential hypertension I10 Assessments Encounter Date Diagnosis (ICD Code) Assessment Notes Treatment Notes Treatment Clinical Notes Section Notes 10/30/2024 Small bowel obstruction (ICD-10 - K56.609) has recovered well. Total time spent on the date of the encounter is 35 minutes including both face to face time spent and time spent reviewing documentation, pertinent lab data, studies and counseling the patient. 10/30/2024 Essential hypertension (ICD-10 - I10) is doing well on amlodipine, will continue current regiment Plan Of Treatment Medication Medication Name Sig Start Date Stop Date Notes amLODIPine Besylate 10 MG 1 tablet Orally Once a day 10/19 Treatment Notes Assessment Notes Small bowel obstruction has recovered we ll. Total time spent on the date of the encounter is 35 minutes including both face to face time spent and time spent reviewing documentation, pertinent lab data, studies and counseling the patient. Essential hypertension is doing well on amlodipine, will continue current regiment Next Appt Details Follow Up: 4 Weeks, Reason: Provider Name:Vito romero, 07/10/2025 08:00:00 AM, [address] [place] [address], Suite [facility], [place], [place], [phone], Provider Name:Vito romero, 07/17/2025 01:00:00 PM, [address] [place] [address], Suite [facility], [place], [place], [phone], Progress Notes * Maria Ines KAM ADOB:[birth year] (84 yo F)Acc No.[id number]:10/30/2024 Patient: Isacc SHANNANPLACIDO Maria Ines Ennis Provider: Kareem Joel MD :1940 A ge:84 Y S ex:Female Date:10/30/2024 Address:[address] [place], [place] [phone] Subjective: * Chief Complaints: * P H/TCM * HPI: S ymptom(s): patient is a 84 yo female [facility]. Discharge summary has been reviewed and medications reconcilled/ had been hospitalized for a bowel obstruction. had surgery after one week. was in hospital 3 weeks and then [facility] for 12 days. feeling well. is slowly getting better. is sleeping a lot. * ROS: G eneral/Constitutional: Denies C hills. D enies F atigue. D enies F ever. D enies H eadache. E NT: Patient denies d ecreased sense of smell, any loss of taste, sore throat. D enies S ore throat. R espiratory: Denies C ough. D enies S hortness of breath at rest. D enies S hortness of breath with exertion. G astrointestinal: Denies D iarrhea. D enies N ausea. M usculoskeletal: Patient denies m uscle aches. P eripheral Vascular: Patient denies r ed and blue toes. * Medical History: * Surgical History: * Hospitalization/Major Diagno stic Procedure: * Medications: T akingFurosemide 20 MG Tablet 1 tablet Orally Once a day Aspir-81 81 MG Tablet Delayed Release 1 tablet Orally Once a day Molnupiravir 200 MG Capsule 4 capsules Orally every 12 hrs Atorvastatin Calcium 80 MG Tablet TAKE 1 TABLET DAILY Orally Once a day carBAMazepine 200 MG Tablet TAKE 1 TABLET TWICE A DAY Orally Twice a day amLODIPine Besylate 10 MG Tablet 1 tablet Orally Once a day Taking Furosemide 20 MG Tablet 1 tablet Orally Once a day Taking Aspir-81 81 MG Tablet Delayed Release 1 tablet Orally Once a day Taking Molnupiravir 200 MG Capsule 4 capsules Orally every 12 hrs Taking Atorvastatin Calcium 80 MG Tablet TAKE 1 TABLET DAILY Orally Once a day Taking carBAMazepine 200 MG Tablet TAKE 1 TABLET TWICE A DAY Orally Twice a day Taking amLODIPine Besylate 10 MG Tablet 1 tablet Orally Once a day Not-Taking/PRNNystatin-Triamcinolone 210498-2.1 UNIT/GM Cream 1 application to affected area Externally Twice a day Not-Taking/PRN Nystatin-Triamcinolone 730840-8.1 UNIT/GM Cream 1 application to affected area Externally Twice a day DiscontinuedLisinopril-hydroCHLOROthiazide 10-12.5 MG Tablet TAKE 1 TABLET ONCE DAILY Medication List reviewed and reconciled with the patientDiscontinued Lisinopril-hydroCHLOROthiazide 10-12.5 MG Tablet TAKE 1 TABLET ONCE DAILY Medication List reviewed and reconciled with the patient * Allergies: N .K.D.A.yes[Allergies Verified] Objective: * Vitals: H t: 65.25, Wt: 176, BMI:29.06, BP:142/60, Repeat BP:118/72, Wt-k.83. weight is down 6 pounds since 07-13-24. * Examination: G eneral Examination: GENERAL APPEARANCE: p leasant, in no acute distress. HEAD: n ormocephalic. SKIN: g ood turgor. HEART: n o murmurs, rubs, gallops, regular rate and rhythm.? LUNGS: n o wheezes, rales, rhonchi, good air movement, clear to auscultation bilaterally. Assessment: * Assessment: 1. S mall bowel obstruction - K56.609 (Primary) 2 . E ssential hypertension - I10 Plan: * Treatment: 2. E ssential hypertension Continue amLODIPine Besylate Tablet, 10 MG, 1 tablet, Orally, Once a day. Notes: is doing well on amlodipine, will continue current regiment * Procedure Codes: * Follow Up: 4 Weeks * * Sign off status: Completed true * Provider: Kareem Joel MD Date: 0 10/30/2024 Generated for Chey winslow/Sofie/eTpeytonsmitting on: 1 08/21/2024 02:14 PM EST History and Physical Notes * HPI (History of Present Illness) Category Sub-Category Detail Notes Category Not es Symptom(s) patient is a 84 yo female here [facility]. Discharge summary has been reviewed and medications reconcilled/ had been hospitalized for a bowel obstruction. had surgery after one week. was in hospital 3 weeks and then [facility] for 12 days. feeling well. is slowly getting better. is sleeping a lot. Examination Category Sub-Category Detail Notes Category Not es General Examination GENERAL APPEARANCE: pleasant, in n o acute distress HEAD: normocephalic HEART: no murmurs, rubs, ga llops, regular rate and rhythm LUNGS: no wheezes, rales, r honchi, good air movement, clear to auscultation bilaterally SKIN: good turgor
--- OUTSIDE RECORDS SUMMARY | 2024-11-10 05:59 | XMS_ITS ---
Author Organization Vito Joel MD Address [address] [place] [phone] Care Team Providers Care Chocolate Packer Name Role Phone Vito Joel Primary Care Provider REASON FOR VISIT refill Medications Medication SIG (Take, Route, Frequency, Duration) Notes Start Date End Date Status amLODIPine Besylate 10 MG 1 tablet Orall y Once a day for 90 days 10/19/2024 Active Encounters Encounter Location Date Provider Diagnosis Vito Joel MD [address] [place] [phone] 11/10/2024 Vito Joel Essential hypertension I10 Assessments Encounter Date Diagnosis (ICD Code) Assessment Notes Treatment Notes Treatment Clinical Notes Section Notes 11/10/2024 Essential hypertension (ICD-10 - I10) Plan Of Treatment Medication Medication Name Sig Start Date Stop Date Notes amLODIPine Besylate 10 MG 1 tablet Orall y Once a day for 90 days 10/19/2024 Next Appt Details Provider Name:Vito romero, 07/10/2025 08:00:00 AM, [address] [place] [address], Suite [facility], [place], [place], [phone], Provider Name:Vito romero, 07/17/2025 01:00:00 PM, [address] [place] [address], [address], [place], [place], [phone], Progress Notes * Maria Ines KAM ADOB:[birth year] (84 yo F)Acc No.[id number]:11/10/2024 Patient: Maria Ines ALFONSO :1940 A ge:84 Y S ex:Female Address:[address] [place] [address] [place] [address] * Refills Refill amLODIPine Besylate Tablet, 10 MG, Orally, 90, 1 tablet, Once a day, 90 days, Refills=3 * true * Date: Generated for Chey winslow/Sofie/Dwayneitting on: 08/21/2024 02:15 PM EST
--- OUTSIDE RECORDS SUMMARY | 2024-11-28 06:30 | XMS_ITS ---
Author Organization Vito Joel MD Address [address] [place], [place] [phone] Care Team Providers Care Human Resources Operations Director Name Role Phone Vito Joel Primary Care Provider Allergies No Known Allergies REASON FOR VISIT 4 WEEK F/U, Patient is not sure if she has been taking Furosemide Medications Medication SIG (Take, Route, Frequency, Duration) Notes Start Date End Date Status Nystatin-Triamcinolone 083549-1.1 UNIT/GM 1 application to affected area Externally Twice a day for 30 days 09/21/2017 Not-Taking amLODIPine Besylate 10 MG 1 tablet Orall y Once a day for 90 days 10/19/2024 Active carBAMazepine 200 MG TAKE 1 TABLET TWICE A DAY Orally Twice a day Active Atorvastatin Calcium 80 MG TAKE 1 TABLET DAILY Orally Once a day Active Molnupiravir 200 MG 4 capsules Orally ev dara 12 hrs for 5 day(s) 03/23/2024 Active Aspir-81 81 MG 1 tablet Orally Once a day for 30 day(s) Active Vital Signs Blood pressure systolic 132 mm Hg 11/29/19 25 Blood pressure diastolic 50 mm Hg 025 Height 65.25 in 11/28/2024 Weight 176 lbs 11/28/2024 BMI 29.06 kg/m2 11/28/2024 Encounters Encounter Location Date Provider Diagnosis Vito Joel MD [address] [place] [address] [place] [phone] 11/28/2024 Vito Joel Essential hypertension I10 and Leg edema R60.0 Assessments Encounter Date Diagnosis (ICD Code) Assessment Notes Treatment Notes Treatment Clinical Notes Section Notes 11/28/2024 Essential hypertension (ICD-10 - I10) doing well on meds 11/28/2024 Leg edema (ICD-10 - R60.0) no longer with any edema Plan Of Treatment Medication Medication Name Sig Start Date Stop Date Notes Furosemide 20 MG 1 tablet Orally Once a day Treatment Notes Assessment Notes Essential hypertension doing well on med s Leg edema no longer with any e russel Next Appt Details Follow Up: 4 Weeks, Reason: Provider Name:Vito romero, 07/10/2025 08:00:00 AM, [address] [place] [address], [place] [address], [place], [place], [phone], Provider Name:Vtio romero, 07/17/2025 01:00:00 PM, [address] [place] [address], [place] [address], [place], [place], [phone], Progress Notes * Maria Ines KAM ADOB:[birth year] (84 yo F)Acc No.[id number]:11/28/2024 Progress Notes Patient: Maria Ines ALFONSO Provider: Kareem Joel MD :1940 A ge:84 Y S ex:Female Date:11/28/2024 Address:[address] [place], [place] [phone] Subjective: * Chief Complaints: * 4 WEEK F/UPatient is not sure if she has been taking Furosemide * HPI: S ymptom(s): patient is a 84 yo female here for 4 week follow up visit. * ROS: G eneral/Constitutional: Denies C hills. D enies F atigue. D enies F ever. D enies H eadache. E NT: Denies S ore throat. R espiratory: Denies C ough. D enies S hortness of breath at rest. D enies S hortness of breath with exertion. G astrointestinal: Denies D iarrhea. D enies N ausea. * Medical History: * Surgical History: * [...] 1 tablet Orally Once a day Not-Taking/PRNNystatin-Triamcinolone 390898-1.1 UNIT/GM Cream 1 application to affected area Externally Twice a day Medication List reviewed and reconciled with the patientNot-Taking/PRN Nystatin-Triamcinolone 942945-4.1 UNIT/GM Cream 1 application to affected area Externally Twice a day Medication List reviewed and reconciled with the patient * Allergies: N .K.D.A.yes[Allergies Verified] Objective: * Vitals: H t: 65.25, Wt: 176, BMI:29.06, BP:132/50, Wt-k.83. * Examination: G eneral Examination: GENERAL APPEARANCE: w ell developed, well nourished. HEAD: n ormocephalic. SKIN: g ood turgor. HEART: n o murmurs, rubs, gallops, regular rate and rhythm.? LUNGS: n o wheezes, rales, rhonchi, good air movement, clear to auscultation bilaterally. EXTREMITIES: n o edema. Assessment: * Assessment: 1. E ssential hypertension - I10 (Primary) 2 . L eg edema - R60.0 ? Plan: * Treatment: 2. L eg edema Notes: no longer with any edema * Procedure Codes: * Follow Up: 4 Weeks * * Sign off status: Completed true * Provider: Kareem Joel MD Date: 0 11/28/2024 Generated for Chey winslow/Sofie/Dwayneitting on: 1 08/21/2024 02:16 PM EST History and Physical Notes * HPI (History of Present Illness) Category Sub-Category Detail Notes Category Not es Symptom(s) patient is a 84 yo female here for 4 week follow up visit Examination Category Sub-Category Detail Notes Category Not es General Examination GENERAL APPEARANCE: well developed , well nourished HEAD: normocephalic HEART: no murmurs, rubs, ga llops, regular rate and rhythm LUNGS: no wheezes, rales, r honchi, good air movement, clear to auscultation bilaterally SKIN: good turgor EXTREMITIES: no edema
--- OUTSIDE RECORDS SUMMARY | 2024-12-28 05:30 | XMS_ITS ---
Author Organization Vito Joel MD Address [address] [place], [place] [phone] Care Team Providers Care Supervisor Building Maintenance Name Role Phone Vito Joel Primary Care Provider [phone] Allergies No Known Allergies Results Component Value [...] day for 90 days 10/19/2024 Active Nystatin-Triamcinolone 525065-7.1 UNIT/GM 1 application to affected area Externally Twice a day for 30 days 09/21/2017 Not-Taking Vital Signs Blood pressure systolic 142 mm Hg 12/29/19 25 Blood pressure diastolic 56 mm Hg 025 Height 65.25 in 12/28/2024 Weight 175 lbs 12/28/2024 BMI 28.9 kg/m2 12/28/2024 Encounters Encounter Location Date Provider Diagnosis Vito Joel MD [address] [place] [phone] 12/28/2024 Vito Joel Prediabetes R73.09 and Edema [...] Reason: Provider Name:Vito romero, 07/10/2025 08:00:00 AM, [address] [place] [address], [phone], Provider Name:Vito romero, 07/17/2025 01:00:00 PM, [address] [place] [address], [place], [place], [phone], Progress Notes * Maria Ines KAM ADOB:[birth year] (84 yo F)Acc No.[id number]:12/28/2024 Progress Notes Patient: Maria Ines ALFONSO Provider: Kareem Joel MD :1940 A ge:84 Y S ex:Female Date:12/28/2024 Address:[address] [place], [place] [address] [id number] Subjective: * Chief Complaints: * 4 WEEKC/o [...] 1 tablet Orally Once a day Not-Taking/PRNNystatin-Triamcinolone 815708-2.1 UNIT/GM Cream 1 application to affected area Externally Twice a day Medication List reviewed and reconciled with the patientNot-Taking/PRN Nystatin-Triamcinolone 511684-3.1 UNIT/GM Cream 1 application to affected area [...] 2947 ASSAY, GLUCOSE, BLOOD QUANT, Modifiers: QW 37419 GLYCATED HEMOGLOBIN TEST, Modifiers: QW * Follow Up: 2 Months * * Sign off status: Completed true * Provider: Kareem Joel MD Date: 0 12/28/2024 Generated for Chey winslow/Sofie/Dwayneitting on: 1 08/21/2024 02:14 PM EST History [...]
--- OUTSIDE RECORDS SUMMARY | 2025-02-09 03:15 | XMS_ITS ---
Author Organization Vito Joel MD Address [address] [place], [place] [id number] Care Team Providers Care Educational Coordinator Name Role Phone Vito Joel Primary Care Provider [phone] Results Component Value Reference Range Notes Liver Panel Reviewed date:02/09/2025 04:39:24 PM Interpretation: Performing Lab:[facility], [address] [place] [phone] Notes/Report: Bilirubin Total 0.2 0.0-1.0 mg/dL Bilirubin Direct < 0.2 0.0-0.5 mg/dL Aspartate Amino Transferase 32 5-31 U/L Alanine Aminotransferase 18 0-31 U/L Total Protein 6.6 6.5-8.0 g/dL Albumin Level 4.1 3.5-5.0 g/dL Alkaline Phosphatase 137 39-117 U/L Glucose Fasting Reviewed date:02/09/2025 04:39:01 PM Interpretation: Performing Lab:[facility], [address] [place] [phone] Notes/Report: Glucose Fasting 102 60-99 mg/dL A fasting glucose from 100-125 mg/dl is considered impaired (pre-diabetes). Lipid Panel with Reflex Reviewed date:02/09/2025 04:51:34 PM Interpretation: Performing Lab:[facility], [address] [place] [phone] Notes/Report: Triglycerides 97 <150 mg/dL Desirable Triglyceride: [...] A1c Reviewed date:02/09/2025 04:39:33 PM Interpretation: Performing Lab:[facility], [address] [place] [phone] Notes/Report: Hemoglobin A1c % 5.7 <6.0 % [...] average glucose, using the formula of the O8V-Mqpelbe Average Glucose study (ADAG), Diabetes Care, Vol.31,#8, Feb. 2007 REASON FOR VISIT FASTING LIPIDS Encounters Encounter Location Date Provider Diagnosis Vito Joel MD [address] [place] [address] Drive [address] [place], [place] [phone] 02/09/2025 Vito Joel Prediabetes R73.09 a nd Pure hypercholesterolemia E78.00 Assessments Encounter Date Diagnosis (ICD Code) Assessment Notes Treatment Notes Treatment Clinical Notes Section Notes 02/09/2025 Prediabetes (ICD-10 - R73.09) 02/09/2025 Pure hypercholesterolemia (ICD-10 - E78.00) Plan Of Treatment Next Appt Details Provider Name:Vito Johnson ier, 07/10/2025 08:00:00 AM, [address], [address], [place], [id number], Provider Name:Vito Johnson ier, 07/17/2025 01:00:00 PM, [address], [address], [place], [place], [id number], Progress Notes * Maria Ines KAM ADOB:[birth year] (85 yo F)Acc No.[id number]:02/09/2025 Progress Note Patient: Maria Ines ALFONSO Provider: Kareem Joel MD :1940 A ge:84 Y S ex:Female Date:02/09/2025 Address:[address] [place], [place] [id number] Subjective: * Chief Complaints: * 1 . [...] 02/09/2025 Generated for Chey winslow/Sofie/eTpeytonsmitting on: 1 08/21/2024 02:13 PM EST
--- OUTSIDE RECORDS SUMMARY | 2025-02-16 05:30 | XMS_ITS ---
Author Organization Vito Joel MD Address [address] [place], [place] [phone] Care Team Providers Care Rn Supplemental Name Role Phone Vito Joel Primary Care Provider Allergies No Known Allergies REASON FOR VISIT 6 MO F/U Medications Medication SIG (Take, Route, Frequency, Duration) Notes Start Date End Date Status Nystatin-Triamcinolone 981672-6.1 UNIT/GM 1 application to affected area Externally [...] Location Date Provider Diagnosis Vito Joel MD [address] [place] [address] Drive [address] [place], [place] [phone] 02/16/2025 Vito Joel Essential hypertensi on I10 [...] Provider Name:Vito Johnson ier, 07/10/2025 08:00:00 AM, [address] [place] [address], [address], [place], [place], [phone], Provider Name:Vito Johnson ieelle, 07/17/2025 01:00:00 PM, [address] [place] [address], [address], [place], [place], [phone], Progress Notes * Maria Ines KAM ADOB:[birth year] (84 yo F)Acc No.[id number]:02/16/2025 Progress Notes Patient: Maria Ines ALFONSO Loli Provider: Kareem Joel MD :1940 A ge:84 Y S ex:Female Date:02/16/2025 Address:[address] [place], [place] [phone] Subjective: * Chief Complaints: * 6 MO [...] MG Tablet TAKE 1 TABLET DAILY Not-Taking/PRNNystatin-Triamcinolone 114882-5.1 UNIT/GM Cream 1 application to affected area Externally Twice a day Medication List reviewed and reconciled with the patientNot-Taking/PRN Nystatin-Triamcinolone 424259-0.1 UNIT/GM Cream 1 application to affected area [...] 0 02/16/2025 Generated for Chey winslow/Sofie/Ez on: 1 08/21/2024 02:15 PM EST History and Physical Notes * [...]
--- OUTSIDE RECORDS SUMMARY | 2025-02-26 05:53 | XMS_ITS ---
Author Organization Vito Joel MD Address [address] [place] [phone] Care Team Providers Care Director Of Manufacturing Operations Name Role Phone Vito Joel Primary Care Provider Medications Medication SIG (Take, Route, Fr equency, Duration) Notes Start Date End Date Status Furosemide 20 MG 1 tablet Orally Once a day for 90 days 12/28/2024 Active Encounters Encounter Location Date Provider Diagnosis Vito Joel MD 10 [facility] [address] [place] [phone] 02/26/2025 Vito Joel Edema leg R60.0 Assessments Encounter Date Diagnosis (ICD Code) Assessment Notes Treatment Notes Treatment Clinical Notes Section Notes 02/26/2025 Edema leg (ICD-10 - R60.0) Plan Of Treatment Medication Medication Name Sig Start Date Stop Date Notes Furosemide 20 MG 1 tablet Orally Once a day for 90 days Next Appt Details Provider Name:Vito romero, 07/10/2025 08:00:00 AM, [address] [place] [address], [address], [phone], Provider Name:Vito romero, 07/17/2025 01:00:00 PM, [address], [address], [phone], Progress Notes * Maria Ines KAM ADOB:[birth year] (85 yo F)Acc No.[id number]:02/26/2025 Patient: Maria Ines ALFONSO :1940 A ge:85 Y S ex:Female Address:[address] [place] [address] * Refills Refill Furosemide Tablet, 20 MG, Orally, 90 Tablet, 1 tablet, Once a day, 90 days, Refills=3 * true * Date: Generated for Chey winslow/Sofie/Dwayneitting on: 08/21/2024 02:16 PM EST
--- OUTSIDE RECORDS SUMMARY | 2025-03-08 05:00 | XMS_ITS ---
Author Organization [facility] Address [address] [place] [address] Care Team Providers Care Sales Compensation Analyst Name Role Phone Vito Joel MD Primary Care Provider Irais Mcghee [phone] Medications Medication SIG (Take, Route, Frequency, Duration) [...] Active Encounters Encounter Location Date Provider Diagnosis [address] [address] 03/08/2025 Irais Prieto Plan Of Treatment Next Appt Details Provider Name:Irais Prieto , 09/10/2025 10:30:00 AM, [address] [place], [address], Progress Notes * Maria Ines KAM ADOB:[birth year] (85 yo F)Acc No.[id number]:03/08/2025 Progress Note Patient: Maria Ines ALFONSO Provider: Bebe Prieto DPM :1940 A ge:85 Y S ex:Female Date:03/08/2025 Address:[facility] [place], [place] Pcp:Vito Joel MD Subjective: * Chief Complaints: [...] 0 03/08/2025 Generated for Chey winslow/Sofie/Ez on: 1 08/21/2024 02:14 PM EST
--- OUTSIDE RECORDS SUMMARY | 2025-05-24 08:15 | XMS_ITS ---
Author Organization [facility] Address [address] [place] [address] Care Team Providers Care Critical Systems Technician Name Role Phone Vito Joel MD Primary Care Provider Irais Mcghee [phone] REASON FOR VISIT Seen Sooner Encounters Encounter Location Date Provider Diagnosis [facility] [address] [place] [address] 05/24/2025 Irais Prieto Plan Of Treatment Next Appt Details Provider Name:Iraiscaty Prieto , 09/10/2025 10:30:00 AM, [address] [place], [address], Progress Notes * Maria Ines KAM ADOB:[birth year] (85 yo F)Acc No.[id number]:05/24/2025 Progress Note Patient: Maria Ines ALFONSO Provider: Bebe Prieto DPM :1940 A ge:85 Y S ex:Female Date:05/24/2025 Address: [address] [place], [place] Pcp:Vito Joel MD Subjective: * Chief Complaints: [...] 1 07/24/2024 Generated for Chey winslow/Sofie/Ez on: 1 08/21/2024 02:14 PM EST
--- NOTE | 2025-06-20 11:29 | MHC.OFFVIS ---
Intake Visit Reasons: PO RT 2nd CRPP v ORIF 06/04/25 AR Intake Note: Maria Ines 85 yr old right hand dominant female presents today for her P/O visit for her Right 2nd CRPP done with Dr Pickard on 06/04/25. States she has a swollen right thumb. She is not taking any over the counter medication. Allergies No Known Allergies Allergy (Verified 06/20/25 11:32) Medication List - Last Reconciled 06/20/25 by Zari Power RN amlodipine 10 mg See Protocol PO DAILY aspirin 81 mg PO DAILY atorvastatin 80 mg PO BEDTIME carbamazepine 200 mg PO BID furosemide 40 mg PO DAILY hydrocodone-acetaminophen 5-325 mg 1 tab PO Q4-6H PRN lisinopril-hydrochlorothiazide 10-12.5 mg 1 tab PO DAILY HPI HPI PO RT 2nd CRPP v ORIF 06/04/25 AR: Details: Maria Ines is an 85 year old right hand dominant woman who returns S/P right 2nd metacarpal CRPP, DOS: 06/04/25. She also has a nondisplaced 3rd metacarpal fracture. She says she is doing well with some complaints primarily of swelling, and of pain & swelling in her thumb, which she is finding more bothersome. She denies any numbness or tingling. She denies taking any pain medication. [facility] Medical History Lumbar spondylosis Autonomic neuropathy due to type 2 diabetes mellitus History of seizure disorder Intermittent spinal claudication Neuropathy Localization-related (focal) (partial) symptomatic epilepsy and epileptic syndromes with simple partial seizures, not intractable, without status epilepticus Hypercholesteremia Essential hypertension Endometrial cancer Surgical History Hx of exploratory laparotomy (09/10/24) History of hysterectomy with bilateral oophorectomy Social History Household Members: None Housing: Assisted Living Facility Housing Other:: [facility] Do you presently have visiting nurse or other home services: No Alcohol intake: current Alcohol intake frequency: holidays/special occasions only Comment: counts correct Patient Tobacco Use Status: Never used Tobacco service: No Current occupational status: retired Current occupation: rt handed Review of Systems Const All systems reviewed & are unremarkable except as noted in HPI and below Physical Exam Const General: no acute distress and alert Orientation/consciousness: patient oriented x3 Neuro General: patient oriented x3 Extrem Other: The patient was alert oriented and in no acute distress The pin site is healing well with no erythema drainage or evidence of infection. K-wire removed today in clinic, which she tolerated well She has some significant swelling in her hand, and was very stiff in all digits today in clinic, from swelling & disuse We worked on ROM exercises for 15+ minutes today in clinic Before leaving clinic she could bring her middle, ring, and small fingers ~2cm from her palm and back into nearly full extension Swelling in the right hand Fracture site minimally tender Sensation is intact Cap refill is brisk Radiographs: 3 views of the right hand were taken and viewed by me today in clinic. They show a 2nd & 3rd metacarpal fracture with satisfactory fracture alignment and position of single K-wire. She has some MCP joint arthritis, and thumb basal joint & IP joint arthritis Psych Appearance: grossly normal Affect: normal affect Attitude: cooperative Office Procedures AMB Fracture Care Details: This code is not for fracture, it is 4 manual therapy greater than 15 minutes [id number] Fracture Billing Code: Fracture Billing Code Assessment & Plan Assessment & Plan (1) Fracture of base of second metacarpal bone of right hand: Code(s): S62.310A - Displaced fracture of base of second metacarpal bone, right hand, initial encounter for closed fracture Category: Medical (2) Fracture of base of third metacarpal bone of right hand: Code(s): S62.312A - Displaced fracture of base of third metacarpal bone, right hand, initial encounter for closed fracture Category: Medical (3) Arthritis of carpometacarpal (CMC) joint of right thumb: Code(s): M18.11 - Unilateral primary osteoarthritis of first carpometacarpal joint, right hand Category: Medical Plan Assessment & Plan: 1. Right 2nd metacarpal base fracture, S/P CRPP DOS: 06/04/25 K-wire removed: 06/20/25 2. Right 3rd metacarpal base fracture DOI: 05/17/25 3. Right basal joint arthritis This is her chief complaint of pain today The patient appears to be doing well post-operatively I educated her about the post-operative course We attempted to fit her with a Velcro wrist splint, but had some trouble getting it on her because of her swelling. The patient was also very concerned about her ability to take it off at home. In the end we decided to let her go with a bandage and Dany wrap today. We worked on ROM exercises for 15+ minutes today in clinic I explained the signs and symptoms of infection, if the patient develops any new or worsening erythema, drainage, pain, or warmth they should contact the clinic or attend the ED. I discussed activity modifications, she is to lift nothing heavier than a cellphone for the next 6 weeks. They should also avoid any heavy impact activities, falls, or sports activities for the next 8 weeks I ordered OT hand therapy to work on ROM exercises She will perform gentle ROM exercises at home She should avoid any underwater activities for he next 5 days She will follow up in 4 weeks, with X-rays, 3V R hand, OOP Scribed for Mariah Pickard MD by Tyrel Huerta, resident medical officer, on 06/20/25 at 11:35 AM, EST. Orders: Orders XR hand RT min 3V Today ANGIE Vasquez M79.641 - Pain in right hand OT Evaluation and Treatment Today Mariah Pickard MD M18.11 - Unilateral primary osteoarthritis of first carpometacarpal joint, right hand, S62.310A - Displaced fracture of base of second metacarpal bone, right hand, initial encounter for closed fracture, S62.312A - Displaced fracture of base of third metacarpal bone, right hand, initial encounter for closed fracture Coding Level of Care Code Global (79327) Diagnoses Fracture of base of second metacarpal bone of right hand S62.310A Fracture of base of third metacarpal bone of right hand S62.312A Arthritis of carpometacarpal (CMC) joint of right thumb M18.11 CPT Codes Fracture Care - Fracture Billing Code: Fracture Billing Code ([id number])
--- OUTSIDE RECORDS SUMMARY | 2025-06-20 14:14 | XMS_ITS | Clinical Summary ---
Author Organization [facility] Address [address] [place] [phone] Phone Care Team Providers Care Director [facility] Name Role Phone Vtio Joel MD Primary Care Provider Medications amLODIPine [...] file Medical Devices Not on file Insurance [employer] TOTAL CHOICE INDEMNITY [employer] TOTAL CHOICE INDEMNITY [employer] [facility] TOTAL CHOICE [facility]ITY [facility] TOTAL CHOICE INDEMNITY [employer] [facility] TOTAL CHOICE INDEMNITY [facility] TOTAL CHOICE INDEMNITY Care Teams Director Of [facility] Relationship Specialty Start Date End Date Vito Joel MD [address] [place] [address] [place] [id number] PCP - General Internal Medicine 09/28/24 Additional Source Comments The information contained in this document represents components of the legal health record. It is not the complete legal health record.[facility]
--- OUTSIDE RECORDS SUMMARY | 2025-06-20 14:15 | XMS_ITS | Patient Health Record ---
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 Panel Fa st Reviewed date:07/06/2024 01:53:50 PM Interpretation: Performing Lab:[facility], [address] [place] [address] Notes/Report: Sodium 135 135-145 mmol/L Potassium 4.1 [...] Panel Reviewed date:07/06/2024 01:43:16 PM Interpretation: Performing Lab:[facility], [address] [place] [address] Notes/Report: Triglycerides 81 <150 mg/dL Desirable Triglyceride: [...] Random Reviewed date:07/06/2024 01:41:54 PM Interpretation: Performing Lab:[facility], [address] [place] [phone] Notes/Report: Creatinine Urine 67.54 Microalbumin Urine 25.0 Microalbum/Creatinine Ratio Ur 37.0 <30 ug/mg cr Albumin/Creatinine Ratio Reference Ranges: Normal: < 30 ug/mg creatinine Microalbuminuria: 30 - 300 ug/mg creatinine Clinical Albuminuria: > 300 ug/mg creatinine Hemoglobin A1c Reviewed date:07/06/2024 01:43:25 PM Interpretation: Performing Lab:[facility], [address] [place] [phone] Notes/Report: Hemoglobin A1c % 5.6 <6.0 % [...] average glucose, using the formula of the D9P-Qwqmcmb Average Glucose study (ADAG), Diabetes Care, Vol.31,#8, Feb. 2007 UA ClnCatch+Micro w/rflx Cul t Reviewed date:07/13/2024 11:30:15 AM Interpretation:JENNIFER 07/13/24 Performing Lab:[address] [address] Notes/Report: Urine, Clean Catch Color Urine Yellow Appearance Urine Clear PH 7.0 5.0-9.0 Glucose Urine UA Negative Negative mg/dL Urine Blood Small (1+) Negative Specific [place] - Urine 1.010 1.005-1.025 Urine Protein Negative Neg-Trace mg/dL Urine Ketones Negative Negative mg/dL Nitrite Urine Negative Negative Leukocyte Esterase Urine Moderate (2+) Negative RBC Urine 3-5 0-2 /HPF WBC Urine 6-10 0-5 /HPF Squamous Epithelial Cell Urine 3-5 0-2 /HPF Bacteria Urine 1+ None Seen Hyaline Casts Urine 0-2 0-2 /LPF Liver Panel Reviewed date:02/09/2025 04:39:24 PM Interpretation: Performing Lab:[address] [address] Notes/Report: Bilirubin Total 0.2 0.0-1.0 mg/dL Bilirubin Direct < 0.2 0.0-0.5 mg/dL Aspartate Amino Transferase 32 5-31 U/L Alanine Aminotransferase 18 0-31 U/L Total Protein 6.6 6.5-8.0 g/dL Albumin Level 4.1 3.5-5.0 g/dL Alkaline Phosphatase 137 39-117 U/L Glucose Fasting Reviewed date:02/09/2025 04:39:01 PM Interpretation: Performing Lab:[address] [address] Notes/Report: Glucose Fasting 102 60-99 mg/dL A fasting glucose from 100-125 mg/dl is considered impaired (pre-diabetes). Lipid Panel with Reflex Reviewed date:02/09/2025 04:51:34 PM Interpretation: Performing Lab:[address] [address] Notes/Report: Triglycerides 97 <150 mg/dL Desirable Triglyceride: [...] A1c Reviewed date:02/09/2025 04:39:33 PM Interpretation: Performing Lab:[address] [address] Notes/Report: Hemoglobin A1c % 5.7 <6.0 % [...] average glucose, using the formula of the G6U-Piukudy Average Glucose study (ADAG), Diabetes Care, Vol.31,#8, Feb. 2007 Occult Blood, Stool, Guaiac Reviewed date:07/13/2024 01:43:12 PM Interpretation:Negative Performing Lab: Notes/Report: Negative Occult Blood, Stool, Guaiac Neg Glucose, finger stick Reviewed date:12/28/2024 10:35:13 AM Interpretation: Performing Lab: Notes/Report: Value 98 Urine Culture Reviewed date:07/13/2024 12:31:12 PM Interpretation: Performing Lab:[facility], [address] [place] [address] Notes/Report: O:ESCCOL Escherichia coli Urine Culture Quant Urine Culture > 100,000 cfu/mL Ampicillin 8 Cefazolin 2 Cefepime <=0.12 Ceftriaxone <=0.25 Ciprofloxacin <=0.06 Gentamicin <=1 Nitrofurantoin <=16 Trimethoprim/Sulfamethox azole <=20 UA ClnCatch+Micro w/rflx Cul t Reviewed date:09/07/2024 12:41:56 PM Interpretation: Performing Lab:[facility], [address] [place] [address] Notes/Report: Urine, Clean Catch Color Urine Dark Yellow Appearance Urine Clear PH 6.0 5.0-9.0 Glucose Urine UA Negative Negative mg/dL Urine Blood Negative Negative Specific [place] - Urine >= 1.030 1.005-1.025 Urine Protein [...] 10:29:18 AM Interpretation:reel radiology Performing Lab: Notes/Report: [address] [address] [address] Scan Report Signed with Addenda Patient: Maria Ines Kam MR#: [id number] 983 : 1940 Acct:[id number] Age/Sex: 84 / F ADM Date: 09/06/24 Loc: [place] [address]: Kavon Burnham MD Ordering Physician: Mago Mckeon MD Date of Service: 09/06/24 Procedure(s): CT abdomen pelvis w IV con Accession Number(s): [id number] cc: Vito Joel MD; Mago Mckeon MD Report Number: [id number]: Total DLP = 734.00 mGy-cm ADDENDUM This [...] in OV> 09/06/241832 DD/ 31 TD/TT: 09/06/241831 Supervisor Data Processing: [address] [address] [address] Scan Report Signed with Addenda Patient: Armin Kam MR#: [id number] 983 : 1940 Acct:[id number] Age/Sex: 84 / F ADM Date: 09/06/24 [facility]: Xavier Burnham MD Ordering Physician: Mago Mckeon MD Date of Service: 09/06/24 Procedure(s): CT abd omen pelvis w IV con Accession Number(s): [id number] cc: Vito Joel MD; Mago Mckeon MD Report Number: [id number]: Total DLP = 734.00 mGy-cm ADDENDUM This [...] in OV> 09/06/241832 DD/ 31 TD/TT: 09/06/241831 Supervisor Data Processing: XR chest 1V Reviewed date:09/07/2024 10:29:44 AM Interpretation: Performing Lab: Notes/Report: [address] [address] XRay Report Signed Patient: Maria Ines Kam MR#: [id number] 983 : 1940 Acct:[id number] Age/Sex: 84 / F ADM Date: 09/06/24 Loc: [place] [address]: Jose Wallace MD Ordering Physician: Mago Mckeon MD Date of Service: 09/06/24 Procedure(s): XR chest 1V Accession Number(s): [id number] cc: Vito Joel MD; Mago Mckeon MD [...] in OV> 09/06/242122 DD/ 20 TD/TT: 09/06/242120 Supervisor Data Processing: [address] [address] XRay Report Signed Patient: Armin Kam MR#: [id number] 983 : 1940 Acct:[id number] Age/Sex: 84 / F ADM Date: 09/06/24 Loc: [place] [address]: Lakesha Wallace MD Ordering Physician: Mago Mckeon MD Date of Service: 09/06/24 Procedure(s): XR jose st 1V Accession Number(s): [id number] cc: Vito Joel MD; Mago Mckeon MD [...] in OV> 09/06/242122 DD/ 20 TD/TT: 09/06/242120 Supervisor Data Processing: Complete Blood Count no Diff Reviewed date:09/07/2024 12:33:32 PM Interpretation: Performing Lab:[facility], [address] [place] [address] Notes/Report: White Blood Count 21.7 4.8-10.8 X10*3/uL [...] Panel Reviewed date:09/07/2024 10:30:09 AM Interpretation: Performing Lab:[address] [address] Notes/Report: Sodium 137 135-145 mmol/L Potassium 3.9 [...] Sensitivity Reviewed date:09/08/2024 12:12:52 PM Interpretation: Performing Lab:[facility], [address] [place] [address] Notes/Report: Troponin-I High Sensitivity 73.8 <3.5-17.0 ng/L Critical value for test(s): TROPONIN Results called to and read back by: MANUEL Person calling: BLAISE Date: 09/07/24 Time: 1915 The Cronin high sensitivity Troponin-I results should be used in conjunction with other diagnostic information such as ECG, clinical observations and information, and patient symptoms to aid in the diagnosis of CA. XR chest 1V Reviewed date:09/08/2024 12:12:42 PM Interpretation: Performing Lab: Notes/Report: [address] [address] XRay Report Signed Patient: Maria Ines Kam MR#: [id number] 983 : 1940 Acct:[id number] Age/Sex: 84 / F ADM Date: 09/06/24 Loc: [place] Attending Dr: Kavon Burnham MD Ordering Physician: Jose Wallace MD Date of Service: 09/07/24 Procedure(s): XR chest 1V Accession Number(s): [id number] cc: Vito Joel MD; Jose Wallace MD [...] in OV> 09/07/242124 DD/ 23 TD/TT: 09/07/242123 Supervisor Data Processing: [address] [address] XRay Report Signed Patient: Armin Kam MR#: [id number] 983 : 1940 Acct:[id number] Age/Sex: 84 / F ADM Date: 09/06/24 Loc: [place] Attending Dr: Xavier Burnham MD Ordering Physician: Jose Wallace MD Date of Service: 09/07/24 Procedure(s): XR jose st 1V Accession Number(s): [id number] cc: Vito Joel MD; Jose Wallace MD [...] in OV> 09/07/242124 DD/ 23 TD/TT: 09/07/242123 Supervisor Data Processing: XR chest 1V Reviewed date:09/08/2024 12:11:49 PM Interpretation: Performing Lab: Notes/Report: [address] [address] XRay Report Signed with Breana Patient: Maria Ines Kam MR#: [id number] 983 : 1940 Acct:[id number] Age/Sex: 84 / F ADM Date: 09/06/24 Loc: [place] [address]: Kavon Burnham MD Ordering Physician: Jose Wallace MD Date of Service: 09/07/24 Procedure(s): XR chest 1V Accession Number(s): [id number] cc: Vito Joel MD; Jose Wallace MD [...] in OV> 09/07/242126 DD/ 25 TD/TT: 09/07/242125 Supervisor Data Processing: [address] [address] XRay Report Signed with Breana Patient: Armin Kam MR#: [id number] 983 : 1940 Acct:[id number] Age/Sex: 84 / F ADM Date: 09/06/24 Loc: [facility]: Xavier Burnham MD Ordering Physician: Jose Wallace MD Date of Service: 09/07/24 Procedure(s): XR jose st 1V Accession Number(s): [id number] cc: Vito Joel MD; Jose Wallace MD [...] in OV> 09/07/242126 DD/ 25 TD/TT: 09/07/242125 Supervisor Data Processing: XR chest 1V Reviewed date:09/08/2024 12:11:23 PM Interpretation: Performing Lab: Notes/Report: [address] [address] XRay Report Signed Patient: Maria Ines Kam MR#: [id number] 983 : 1940 Acct:[id number] Age/Sex: 84 / F ADM Date: 09/06/24 Loc: [facility] Attending Dr: Kavon Burnham MD Ordering Physician: Jose Wallace MD Date of Service: 09/07/24 Procedure(s): XR chest 1V Accession Number(s): [id number] cc: Vtio Joel MD; Jose Wallace MD CLINICAL HISTORY: [...] in OV> 09/07/242316 DD/ 15 TD/TT: 09/07/242315 Supervisor Data Processing: [address] [address] XRay Report Signed Patient: Armin Kam MR#: [id number] 983 : 1940 Acct:[id number] Age/Sex: 84 / F ADM Date: 09/06/24 Loc: [facility]: Xavier Burnham MD Ordering Physician: Jose Wallace MD Date of Service: 09/07/24 Procedure(s): XR jose st 1V Accession Number(s): [id number] cc: Vito Joel MD; Jose Wallace MD [...] in OV> 09/07/242316 DD/ 15 TD/TT: 09/07/242315 Supervisor Data Processing: Complete Blood Count no Diff Reviewed date:09/08/2024 12:45:54 PM Interpretation: Performing Lab:[facility], [address] [place] [address] Notes/Report: SPECIMEN QNS White Blood Count 18.4 [...] Panel Reviewed date:09/08/2024 12:10:27 PM Interpretation: Performing Lab:[facility], [address] [place] [address] Notes/Report: Sodium 138 135-145 mmol/L Potassium 4.0 [...] Sensitivity Reviewed date:09/08/2024 12:11:00 PM Interpretation: Performing Lab:[facility], [address] [place] [address] Notes/Report: Troponin-I High Sensitivity 101.3 <3.5-17.0 ng/L Critical value for test(s): TROP Results called to and read back by: MANUEL Person calling: VYASRID Date: [id number] Time:015 The Cronin high sensitivity Troponin-I results should be used in conjunction with other diagnostic information such as ECG, clinical observations and information, and patient symptoms to aid in the diagnosis of CA. FL small bowel follow throug h Reviewed date:09/11/2024 12:48:07 PM Interpretation: Performing Lab: Notes/Report: [address] [address] Fluoroscopy Report Signed Patient: Maria Ines Kam MR#: [id number] 983 : 1940 Acct:[id number] Age/Sex: 84 / F ADM Date: 09/06/24 Loc: .S3 352-[address]: Kavon Burnham MD Ordering Physician: Lexi Walsh PA-C Date of Service: 09/08/24 Procedure(s): FL small bowel follow through Accession Number(s): [id number] cc: Vito Joel MD; Lexi Walsh PA-C EXAMINATION: FL SMALL BOWEL SERIES CLINICAL INFORMATION: ?SBO, abd distention, persistent nausea COMPARISON: None available. TECHNIQUE: Following a measurement technician image of the abdomen, thick barium contrast was administered orally, and interval abdominal radiographs were performed to assess for contrast progression through the small bowel. Following contrast transit through the small bowel and into the colon, the patient was placed on the fluoroscopy table, and multiple spot images were obtained. FINDINGS: Drier Operator image of the abdomen demonstrates obstructed proximal [...] OV> 09/11/24 1035 DD/ 14 TD/TT: 09/08/242019 Supervisor Data Processing: [place] [address] Fluoroscopy Report Signed Patient: Armin Kam MR#: [id number] 983 : 1940 Acct:[id number] Age/Sex: 84 / F ADM Date: 09/06/24 Loc: [facility]-[address]: Xavier Burnham MD Ordering Physician: Lexi Walsh PA-C Date of Service: 09/08/24 Procedure(s): FL sma ll bowel follow through Accession Number(s): [id number] cc: Vito Joel MD; Lexi Walsh PA-C EXAMINATION: FL SMALL BOWEL SERIES CLINICAL INFORMATION: ?SBO, abd distention , persistent nausea COMPARISON: None available. TECHNIQUE: Following a measurement technician im age of the abdomen, thick barium contrast was administered orally, and interval abdominal radiographs were performed to assess for contra st progression through the small bowel. Following contrast transit thr ough the small bowel and into the colon, the patient was placed o n the fluoroscopy table, and multiple spot images were obtained. FINDINGS: Drier Operator image of the abdomen demonstrates obstructed proximal [...] OV> 09/11/24 1035 DD/ 14 TD/TT: 09/08/242019 Supervisor Data Processing: [facility] XR KUB Reviewed date:09/08/2024 12:10:15 PM Interpretation: Performing Lab: Notes/Report: [address] [address] XRay Report Signed Patient: Maria Ines Kam MR#: [id number] 983 : 1940 Acct:[id number] Age/Sex: 84 / F ADM Date: 09/06/24 Loc: [facility]-[address]: Kavon Burnham MD Ordering Physician: Kavon Burnham MD Date of Service: 09/08/24 Procedure(s): XR KUB Accession Number(s): [id number] cc: Vito Joel MD; Kavon Burnham MD [...] 09/08/24 0934 DD/ 0850 TD/TT: 09/08/24 09 Supervisor Data Processing: [address] [place] [address] XRay Report Signed Patient: Armin Kam MR#: [id number] 983 : 1940 Acct:[id number] Age/Sex: 84 / F ADM Date: 09/06/24 Loc: [facility] 352-[address]: Xavier Burnham MD Ordering Physician: Kavon Burnham MD Date of Service: 09/08/24 Procedure(s): XR KUB Accession Number(s): [id number] cc: Vito Joel MD; Kavon Burnham MD [...] 09/08/24 0934 DD/ 0850 TD/TT: 09/08/24 0901 Supervisor Data Processing: RUIZ Troponin-I High Sensitivity Reviewed date:09/08/2024 12:09:04 PM Interpretation: Performing Lab:[facility], [address] [place] [phone] Notes/Report: Unable to obtain 2x 1037 09/08/24 [place] Troponin-I High Sensitivity 117.1 <3.5-17.0 ng/L Critical troponin sent by a secure message and confirmed by Kavon Burnham 09/08/24 1202 Tech: caroline The Cronin high sensitivity Troponin-I results should be used in conjunction with other diagnostic information such as ECG, clinical observations and information, and patient symptoms to aid in the diagnosis of CA. Complete Blood Count no Diff Reviewed date:09/10/2024 02:50:48 PM Interpretation: Performing Lab:[facility], [address] [place] [phone] Notes/Report: Unable to obtain x2 attempts rs09/09 [...] Panel Reviewed date:09/10/2024 02:51:37 PM Interpretation: Performing Lab:[facility], [address] [place] [address] Notes/Report: Unable to obtain x2 attempts 09/09 [...] Diff Reviewed date:09/10/2024 02:53:03 PM Interpretation: Performing Lab:[facility], [address] [place] [address] Notes/Report: White Blood Count 14.0 4.8-10.8 X10*3/uL [...] Panel Reviewed date:09/10/2024 02:47:59 PM Interpretation: Performing Lab:[facility], [address] [place] [address] Notes/Report: Sodium 139 135-145 mmol/L Potassium 3.2 [...] Pathology Reviewed date:09/12/2024 01:54:32 PM Interpretation: Performing Lab:[facility], [address] [place] [address] Notes/Report: ---- Name: Maria Ines Kam Age/Sex: 84/F : 1940 Unit#: [id number] Attend Dr: Kavon Burnham MD Re09/06/24 Status : ADM IN Location: [place] [address]-1 Disch: ---- SPEC : [id number] RECD : 09/11/24 STATUS: MARIALUISA REQ NUM: [id number] BRET: 09/10/24 [facility] DR: Isabela Lopez MD ENTERED: 09/11/24 [...] therefore it is difficult to orie nt. 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 CEDS Copies To: Vito Joel MD [facility] [address] [place] [address] Kavon Burnham MD [address] [place], [place] [id number] Isabela Lopez MD [facility] [address] [place] [address] ?[place] [address] [email or web address] ---- Signed (signature on file) Talia Ricardo MD 09/12/24 1304 ---- END OF REPORT SKYLER TA Reviewed date:09/10/2024 02:50:05 PM Interpretation: Performing Lab: Notes/Report: [address] [address] XRay Report Signed Patient: Maria Ines Kam MR#: [id number] 983 : 1940 Acct:[id number] Age/Sex: 84 / F ADM Date: 09/06/24 Loc: [facility] 352-[address]: Pj Choudhary MD Ordering Physician: Jeff Mcnair MD Date of Service: 09/09/24 Procedure(s): SKYLER TA Accession Number(s): [id number] cc: Vito Joel MD; Jeff Mcnair MD [...] 09/10/24 1108 DD/ 110 TD/TT: 09/10/24 110 Supervisor Data Processing: [address] [address] XRay Report Signed Patient: Armin Kam MR#: [id number] 983 : 1940 Acct:[id number] Age/Sex: 84 / F ADM Date: 09/06/24 Loc: [place]-[address]: Pj Choudhary MD Ordering Physician: Jeff Mcnair MD Date of Service: 09/09/24 Procedure(s): XR KUB Accession Number(s): [id number] cc: Vito Joel MD; Jeff Mcnair MD [...] 09/10/24 1108 DD/ 1107 TD/TT: 09/10/24 1107 Supervisor Data Processing: SKYLER TA Reviewed date:09/10/2024 02:50:29 PM Interpretation: Performing Lab: Notes/Report: [address] [address] XRay Report Signed Patient: Maria Ines Kam MR#: [id number] 983 : 1940 Acct:[id number] Age/Sex: 84 / F ADM Date: 09/06/24 Loc: [facility] 352-[address]: Pj Choudhary MD Ordering Physician: Isabela Lopez MD Date of Service: 09/10/24 Procedure(s): XR KUB Accession Number(s): [id number] cc: Vito Joel MD; Isabela Lopez MD [...] 09/10/24 1249 DD/ 1248 TD/TT: 09/10/24 1248 Supervisor Data Processing: [place] [address] XRay Report Signed Patient: Armin Kam MR#: [id number] 983 : 1940 Acct:[id number] Age/Sex: 84 / F ADM Date: 09/06/24 Loc: .S3 352-[address]: Pj Choudhary MD Ordering Physician: Isabela Lopez MD Date of Service: 09/10/24 Procedure(s): XR KUB Accession Number(s): [id number] cc: Vito Joel MD; Isabela Lopez MD [...] 09/10/24 1249 DD/ 1248 TD/TT: 09/10/24 1248 Supervisor Data Processing: Complete Blood Count no Diff Reviewed date:09/11/2024 12:49:09 PM Interpretation: Performing Lab:[facility], [address] [place] [address] Notes/Report: White Blood Count 14.1 4.8-10.8 X10*3/uL [...] Panel Reviewed date:09/11/2024 12:46:20 PM Interpretation: Performing Lab:[facility], [address] [place] [address] Notes/Report: Sodium 143 135-145 mmol/L Potassium 3.0 [...] Electrolytes Reviewed date:09/12/2024 12:25:43 PM Interpretation: Performing Lab:[facility], [address] [place] [phone] Notes/Report: Sodium 143 135-145 mmol/L Potassium 3.4 3.3-5.1 mmol/L Chloride 105 96-108 mmol/L Carbon Dioxide 30 22-29 mmol/L Anion Gap 11 12-20 Phosphorus Reviewed date:09/11/2024 12:46:12 PM Interpretation: Performing Lab:[facility], [address] [place] [address] Notes/Report: Phosphorus 2.8 2.7-4.5 mg/dL Magnesium Reviewed date:09/11/2024 12:46:04 PM Interpretation: Performing Lab:[facility], [address] [place] [address] Notes/Report: Magnesium 2.4 1.6-2.6 mg/dL Albumin Level Reviewed date:09/11/2024 12:45:57 PM Interpretation: Performing Lab:[facility], [address] [place] [address] Notes/Report: Albumin Level 2.8 3.5-5.0 g/dL Triglycerides Reviewed date:09/11/2024 12:45:50 PM Interpretation: Performing Lab:[facility], [address] [place] [phone] Notes/Report: Triglycerides 117 <150 mg/dL Desirable Triglyceride: less than 150 mg/dL Borderline High Triglyceride 150-199 mg/dL High Triglyceride: 200-499 mg/dL Very High Triglyceride: greater than or equal to 5OO mg/dL Hold Green Gel Reviewed date:09/11/2024 06:02:58 PM Interpretation: Performing Lab:[facility], [address] [place] [phone] Notes/Report: Hold Green Gel See Note Specimen held untested for 24 hours; Call to request Chemistry testing. Complete Blood Count no Diff Reviewed date:09/12/2024 01:55:00 PM Interpretation: Performing Lab:[facility], [address] [place] [phone] Notes/Report: White Blood Count 10.9 4.8-10.8 X10*3/uL [...] Panel Reviewed date:09/12/2024 12:38:34 PM Interpretation: Performing Lab:[facility], [address] [place] [phone] Notes/Report: Sodium 142 135-145 mmol/L Potassium 3.6 [...] Phosphorus Reviewed date:09/12/2024 12:20:25 PM Interpretation: Performing Lab:[facility], [address] [place] [address] Notes/Report: Phosphorus 1.6 2.7-4.5 mg/dL Magnesium Reviewed date:09/12/2024 12:19:46 PM Interpretation: Performing Lab:[facility], [address] [place] [phone] Notes/Report: Magnesium 2.4 1.6-2.6 mg/dL Albumin Level Reviewed date:09/12/2024 12:15:39 PM Interpretation: Performing Lab:[facility], [address] [place] [phone] Notes/Report: Albumin Level 2.6 3.5-5.0 g/dL Glucose, Whole Blood Reviewed date:09/12/2024 12:15:20 PM Interpretation: Performing Lab:[facility], [address] [place] [phone] Notes/Report: Glucose, Whole Blood 142 60-115 mg/dL METER # : [id number] Glucose, Whole Blood Reviewed date:09/13/2024 07:01:40 PM Interpretation: Performing Lab:[facility], [address] [place] [address] [phone] Notes/Report: Glucose, Whole Blood 120 60-115 mg/dL METER # : [id number] Glucose, Whole Blood Reviewed date:09/13/2024 07:01:40 PM Interpretation: Performing Lab:[facility], [address] [place] [phone] Notes/Report: Glucose, Whole Blood 123 60-115 mg/dL METER # : [id number] Complete Blood Count no Diff Reviewed date:09/13/2024 07:01:40 PM Interpretation: Performing Lab:[facility], [address] [place] [phone] Notes/Report: White Blood Count 9.9 4.8-10.8 X10*3/uL [...] Panel Reviewed date:09/13/2024 07:01:40 PM Interpretation: Performing Lab:[facility], [address] [place] [phone] Notes/Report: Sodium 140 135-145 mmol/L Potassium 3.8 [...] Phosphorus Reviewed date:09/13/2024 07:01:40 PM Interpretation: Performing Lab:[facility], [address] [place] [phone] Notes/Report: Phosphorus 3.3 2.7-4.5 mg/dL Magnesium Reviewed date:09/13/2024 07:01:40 PM Interpretation: Performing Lab:[facility], [address] [place] [phone] Notes/Report: Magnesium 2.3 1.6-2.6 mg/dL Albumin Level Reviewed date:09/13/2024 07:01:40 PM Interpretation: Performing Lab:[facility], [address] [place] [phone] Notes/Report: Albumin Level 2.5 3.5-5.0 g/dL Glucose, Whole Blood Reviewed date:09/13/2024 07:01:40 PM Interpretation: Performing Lab:[facility], [address] [place] [phone] Notes/Report: Glucose, Whole Blood 147 60-115 mg/dL METER # : [id number] XR chest 1V Reviewed date:09/14/2024 12:39:53 PM Interpretation: Performing Lab: Notes/Report: [address] [place] [address] XRay Report Signed Patient: Maria Ines Kam MR#: [id number] 983 : 1940 Acct:[id number] Age/Sex: 84 / F ADM Date: 09/06/24 Loc: .S3 352-[address]: Kavon Burnham MD Ordering Physician: Jesus Galaviz MD Date of Service: 09/13/24 Procedure(s): XR chest 1V Accession Number(s): [id number] cc: Vito Joel MD; Jesus Galaviz MD [...] by Hilton Phillip MD in OV> 09/13/24 7021 DD/ 26 TD/TT: 09/13/242326 Supervisor Data Processing: [facility] [address] [place] [address]. [place] [address] XRay Report Signed Patient: Armin Kam MR#: [id number] 983 : 1940 Acct:[id number] Age/Sex: 84 / F ADM Date: 09/06/24 Loc: [facility] 352-[address]: Xavier Burnham MD Ordering Physician: Jesus Galaviz MD Date of Service: 09/13/24 Procedure(s): XR jose st 1V Accession Number(s): [id number] cc: Vito Joel MD; Jesus Galaviz MD [...] in OV> 09/13/242327 DD/ 26 TD/TT: 09/13/242326 Supervisor Data Processing: Glucose, Whole Blood Reviewed date:09/13/2024 07:01:40 PM Interpretation: Performing Lab:[facility], [address] [place] [phone] Notes/Report: Glucose, Whole Blood 142 60-115 mg/dL METER # : [id number] Glucose, Whole Blood Reviewed date:09/13/2024 07:01:40 PM Interpretation: Performing Lab:[facility], [address] [place] [address] Notes/Report: Glucose, Whole Blood 111 60-115 mg/dL METER # : [id number] Glucose, Whole Blood Reviewed date:09/14/2024 12:39:53 PM Interpretation: Performing Lab:[facility], [address] [place] [phone] Notes/Report: Glucose, Whole Blood 123 60-115 mg/dL METER # : [id number] XR chest 1V Reviewed date:09/14/2024 12:39:53 PM Interpretation: Performing Lab: Notes/Report: [address] [address] XRay Report Signed Patient: Maria Ines Kam MR#: [id number] 983 : 1940 Acct:[id number] Age/Sex: 84 / F ADM Date: 09/06/24 Loc: S3 352-[address]: Kavon Burnham MD Ordering Physician: Jesus Galaviz MD Date of Service: 09/13/24 Procedure(s): XR chest 1V Accession Number(s): [id number] cc: Vito Joel MD; Jesus Galaviz MD [...] 09/13/24 2343 DD/ 2341 TD/TT: 09/13/24 2341 Supervisor Data Processing: [address] [address] XRay Report Signed Patient: Armin Kam MR#: [id number] 983 : 1940 Acct:[id number] Age/Sex: 84 / F ADM Date: 09/06/24 Loc: [facility] 352-[address]: Xavier Burnham MD Ordering Physician: Jesus Galaviz MD Date of Service: 09/13/24 Procedure(s): XR jose st 1V Accession Number(s): [id number] cc: Vito Joel MD; Jesus Galaviz MD [...] in OV> 09/13/242342 DD/ 40 TD/TT: 09/13/242340 Supervisor Data Processing: Complete Blood Count no Diff Reviewed date:09/14/2024 12:39:53 PM Interpretation: Performing Lab:[facility], [address] [place] [phone] Notes/Report: White Blood Count 11.0 4.8-10.8 X10*3/uL [...] Panel Reviewed date:09/14/2024 12:39:53 PM Interpretation: Performing Lab:[facility], [address] [place] [phone] Notes/Report: Sodium 140 135-145 mmol/L Potassium 4.3 [...] Phosphorus Reviewed date:09/14/2024 12:39:53 PM Interpretation: Performing Lab:[facility], [address] [place] [phone] Notes/Report: Phosphorus 4.0 2.7-4.5 mg/dL Magnesium Reviewed date:09/14/2024 12:39:53 PM Interpretation: Performing Lab:[facility], [address] [place] [phone] Notes/Report: Magnesium 2.3 1.6-2.6 mg/dL Albumin Level Reviewed date:09/14/2024 12:39:53 PM Interpretation: Performing Lab:[facility], [address] [place] [phone] Notes/Report: Albumin Level 2.7 3.5-5.0 g/dL Glucose, Whole Blood Reviewed date:09/14/2024 12:39:53 PM Interpretation: Performing Lab:[facility], [address] [place] [phone] Notes/Report: Glucose, Whole Blood 133 60-115 mg/dL METER # : [id number] Glucose, Whole Blood Reviewed date:09/14/2024 12:36:25 PM Interpretation: Performing Lab:[facility], [address] [place] [phone] Notes/Report: Glucose, Whole Blood 117 60-115 mg/dL METER # : [id number] Glucose, Whole Blood Reviewed date:09/15/2024 09:58:24 AM Interpretation: Performing Lab:[facility], [address] [place] [phone] Notes/Report: Glucose, Whole Blood 113 60-115 mg/dL METER # : [id number] Glucose, Whole Blood Reviewed date:09/15/2024 12:23:20 PM Interpretation: Performing Lab:[facility], [address] [place] [phone] Notes/Report: Glucose, Whole Blood 126 60-115 mg/dL METER # : [id number] Comprehensive Met. Panel Reviewed date:09/15/2024 12:23:19 PM Interpretation: Performing Lab:[facility], [address] [place] [phone] Notes/Report: Sodium 139 135-145 mmol/L Potassium 4.5 [...] Panel Reviewed date:09/15/2024 12:23:19 PM Interpretation: Performing Lab:[facility], [address] [place] [phone] Notes/Report: Sodium 140 135-145 mmol/L Potassium 4.7 [...] Phosphorus Reviewed date:09/15/2024 12:23:19 PM Interpretation: Performing Lab:[facility], [address] [place] [phone] Notes/Report: Phosphorus 4.0 2.7-4.5 mg/dL Magnesium Reviewed date:09/15/2024 12:23:19 PM Interpretation: Performing Lab:[facility], [address] [place] [phone] Notes/Report: Magnesium 2.3 1.6-2.6 mg/dL Albumin Level Reviewed date:09/15/2024 12:23:20 PM Interpretation: Performing Lab:[facility], [address] [place] [phone] Notes/Report: Albumin Level 2.8 3.5-5.0 g/dL Glucose, Whole Blood Reviewed date:09/15/2024 12:23:20 PM Interpretation: Performing Lab:[facility], [address] [place] [phone] Notes/Report: Glucose, Whole Blood 136 60-115 mg/dL METER # : [id number] Glucose, Whole Blood Reviewed date:09/15/2024 12:44:30 PM Interpretation: Performing Lab:[facility], [address] [place] [phone] Notes/Report: Glucose, Whole Blood 119 60-115 mg/dL METER # : [id number] Glucose, Whole Blood Reviewed date:09/17/2024 05:17:50 PM Interpretation: Performing Lab:[facility], [address] [place] [phone] Notes/Report: Glucose, Whole Blood 93 60-115 mg/dL METER # : [id number] Glucose, Whole Blood Reviewed date:09/17/2024 05:17:50 PM Interpretation: Performing Lab:[facility], [address] [place] [phone] Notes/Report: Glucose, Whole Blood 131 60-115 mg/dL METER # : [id number] Basic Metabolic Panel Reviewed date:09/17/2024 05:17:50 PM Interpretation: Performing Lab:[facility], [address] [place] [phone] Notes/Report: Sodium 140 135-145 mmol/L Potassium 4.2 [...] Phosphorus Reviewed date:09/17/2024 05:17:50 PM Interpretation: Performing Lab:[facility], [address] [place] [phone] Notes/Report: Phosphorus 3.6 2.7-4.5 mg/dL Magnesium Reviewed date:09/17/2024 05:17:50 PM Interpretation: Performing Lab:[facility], [address] [place] [phone] Notes/Report: Magnesium 2.3 1.6-2.6 mg/dL Albumin Level Reviewed date:09/17/2024 05:17:50 PM Interpretation: Performing Lab:[facility], [address] [place] [phone] Notes/Report: Albumin Level 2.9 3.5-5.0 g/dL Glucose, Whole Blood Reviewed date:09/17/2024 05:17:50 PM Interpretation: Performing Lab:[facility], [address] [place] [phone] Notes/Report: Glucose, Whole Blood 126 60-115 mg/dL METER # : [id number] Glucose, Whole Blood Reviewed date:09/17/2024 05:17:50 PM Interpretation: Performing Lab:[facility], [address] [place] [phone] Notes/Report: Glucose, Whole Blood 133 60-115 mg/dL METER # : [id number] Glucose, Whole Blood Reviewed date:09/17/2024 05:17:50 PM Interpretation: Performing Lab:[facility], [address] [place] [phone] Notes/Report: Glucose, Whole Blood 137 60-115 mg/dL METER # : [id number] Glucose, Whole Blood Reviewed date:09/17/2024 05:17:50 PM Interpretation: Performing Lab:[facility], [address] [place] [phone] Notes/Report: Glucose, Whole Blood 131 60-115 mg/dL METER # : [id number] Basic Metabolic Panel Reviewed date:09/17/2024 05:17:50 PM Interpretation: Performing Lab:[facility], [address] [place] [phone] Notes/Report: Sodium 140 135-145 mmol/L Potassium 4.4 [...] Phosphorus Reviewed date:09/17/2024 05:17:50 PM Interpretation: Performing Lab:[facility], [address] [place] [phone] Notes/Report: Phosphorus 3.6 2.7-4.5 mg/dL Magnesium Reviewed date:09/17/2024 05:17:50 PM Interpretation: Performing Lab:[facility], [address] [place] [phone] Notes/Report: Magnesium 2.1 1.6-2.6 mg/dL Albumin Level Reviewed date:09/17/2024 05:17:50 PM Interpretation: Performing Lab:[facility], [address] [place] [phone] Notes/Report: Albumin Level 2.9 3.5-5.0 g/dL Glucose, Whole Blood Reviewed date:09/17/2024 05:17:50 PM Interpretation: Performing Lab:[facility], [address] [place] [phone] Notes/Report: Glucose, Whole Blood 126 60-115 mg/dL METER # : [id number] Glucose, Whole Blood Reviewed date:09/17/2024 05:17:50 PM Interpretation: Performing Lab:[facility], [address] [place] [phone] Notes/Report: Glucose, Whole Blood 100 60-115 mg/dL METER # : [id number] Glucose, Whole Blood Reviewed date:09/18/2024 12:00:44 PM Interpretation: Performing Lab:[facility], [address] [place] [phone] Notes/Report: Glucose, Whole Blood 111 60-115 mg/dL METER # : [id number] Glucose, Whole Blood Reviewed date:09/18/2024 12:00:44 PM Interpretation: Performing Lab:[facility], [address] [place] [phone] Notes/Report: Glucose, Whole Blood 111 60-115 mg/dL METER # : [id number] Hold Lav - Possible Hematolo gy Reviewed date:09/18/2024 12:00:44 PM Interpretation: Performing Lab:[facility], [address] [place] [phone] Notes/Report: Hold Lav - Possible Hematology SEE NOTE Specimen will be held untested for 8 hours. Call Hematology if testing is desired. Basic Metabolic Panel Reviewed date:09/18/2024 12:00:44 PM Interpretation: Performing Lab:[facility], [address] [place] [phone] Notes/Report: Sodium 136 135-145 mmol/L Potassium 4.4 [...] Phosphorus Reviewed date:09/18/2024 12:00:44 PM Interpretation: Performing Lab:[facility], [address] [place] [phone] Notes/Report: Phosphorus 3.3 2.7-4.5 mg/dL Magnesium Reviewed date:09/18/2024 12:00:44 PM Interpretation: Performing Lab:[facility], [address] [place] [phone] Notes/Report: Magnesium 2.1 1.6-2.6 mg/dL Albumin Level Reviewed date:09/18/2024 12:00:05 PM Interpretation: Performing Lab:[facility], [address] [place] [phone] Notes/Report: Albumin Level 2.7 3.5-5.0 g/dL Triglycerides Reviewed date:09/18/2024 12:00:44 PM Interpretation: Performing Lab:[facility], [address] [place] [phone] Notes/Report: Triglycerides 241 <150 mg/dL Desirable Triglyceride: less than 150 mg/dL Borderline High Triglyceride 150-199 mg/dL High Triglyceride: 200-499 mg/dL Very High Triglyceride: greater than or equal to 5OO mg/dL Glucose, Whole Blood Reviewed date:09/18/2024 12:00:44 PM Interpretation: Performing Lab:[facility], [address] [place] [phone] Notes/Report: Glucose, Whole Blood 137 60-115 mg/dL METER # : [id number] Glucose, Whole Blood Reviewed date:09/18/2024 12:08:03 PM Interpretation: Performing Lab:[facility], [address] [place] [phone] Notes/Report: Glucose, Whole Blood 139 60-115 mg/dL METER # : [id number] Glucose, Whole Blood Reviewed date:09/19/2024 10:03:03 AM Interpretation: Performing Lab:[facility], [address] [place] [phone] Notes/Report: Glucose, Whole Blood 120 60-115 mg/dL METER # : [id number] Glucose, Whole Blood Reviewed date:09/19/2024 10:03:03 AM Interpretation: Performing Lab:[facility], [address] [place] [phone] Notes/Report: Glucose, Whole Blood 110 60-115 mg/dL METER # : [id number] Hold Lav - Possible Hematolo gy Reviewed date:09/19/2024 10:03:03 AM Interpretation: Performing Lab:[facility], [address] [place] [phone] Notes/Report: Hold Lav - Possible Hematology SEE NOTE Specimen will be held untested for 8 hours. Call Hematology if testing is desired. Basic Metabolic Panel Reviewed date:09/19/2024 10:03:03 AM Interpretation: Performing Lab:[facility], [address] [place] [phone] Notes/Report: Sodium 133 135-145 mmol/L Potassium 4.1 [...] Phosphorus Reviewed date:09/19/2024 10:03:03 AM Interpretation: Performing Lab:[facility], [address] [place] [phone] Notes/Report: Phosphorus 3.1 2.7-4.5 mg/dL Magnesium Reviewed date:09/19/2024 10:03:03 AM Interpretation: Performing Lab:[facility], [address] [place] [phone] Notes/Report: Magnesium 1.9 1.6-2.6 mg/dL Albumin Level Reviewed date:09/19/2024 10:03:03 AM Interpretation: Performing Lab:[facility], [address] [place] [phone] Notes/Report: Albumin Level 2.6 3.5-5.0 g/dL Glucose, Whole Blood Reviewed date:09/19/2024 10:03:03 AM Interpretation: Performing Lab:[facility], [address] [place] [phone] Notes/Report: Glucose, Whole Blood 126 60-115 mg/dL METER # : [id number] Glucose, Whole Blood Reviewed date:09/19/2024 12:02:47 PM Interpretation: Performing Lab:[facility], [address] [place] [phone] Notes/Report: Glucose, Whole Blood 138 60-115 mg/dL METER # : [id number] Glucose, Whole Blood Reviewed date:09/20/2024 03:15:40 PM Interpretation: Performing Lab:[facility], [address] [place] [phone] Notes/Report: Glucose, Whole Blood 107 60-115 mg/dL METER # : [id number] Glucose, Whole Blood Reviewed date:09/20/2024 03:16:10 PM Interpretation: Performing Lab:[facility], [address] [place] [phone] Notes/Report: Glucose, Whole Blood 130 60-115 mg/dL METER # : [id number] Basic Metabolic Panel Reviewed date:09/20/2024 03:16:10 PM Interpretation: Performing Lab:[facility], [address] [place] [phone] Notes/Report: Sodium 134 135-145 mmol/L Potassium 3.8 [...] Phosphorus Reviewed date:09/20/2024 03:13:29 PM Interpretation: Performing Lab:[address] [phone] Notes/Report: Phosphorus 3.1 2.7-4.5 mg/dL Magnesium Reviewed date:09/20/2024 03:13:21 PM Interpretation: Performing Lab:[address] [address] Notes/Report: Magnesium 1.9 1.6-2.6 mg/dL Albumin Level Reviewed date:09/20/2024 03:13:14 PM Interpretation: Performing Lab:[address] [phone] Notes/Report: Albumin Level 2.8 3.5-5.0 g/dL Glucose, Whole Blood Reviewed date:09/20/2024 03:16:10 PM Interpretation: Performing Lab:[address] [address] Notes/Report: Glucose, Whole Blood 93 60-115 mg/dL METER # : [id number] CDiff Gene PCR Reviewed date:09/20/2024 03:13:07 PM Interpretation: Performing Lab:[address] [address] Notes/Report: CDiff Gene PCR NEGATIVE Negative If C. difficile strongly suspected despite one negative test, a second test may be sent vs. empiric treatment for C. difficile infection. Glucose, Whole Blood Reviewed date:09/20/2024 03:16:10 PM Interpretation: Performing Lab:[facility], [address] [place] [address] Notes/Report: Glucose, Whole Blood 96 60-115 mg/dL METER # : [id number] Glucose, Whole Blood Reviewed date:09/20/2024 03:16:09 PM Interpretation: Performing Lab:[facility], [address] [place] [address] Notes/Report: Glucose, Whole Blood 105 60-115 mg/dL METER # : [id number] US renal BI Reviewed date:11/06/2024 04:14:12 PM Interpretation: Performing Lab: Notes/Report: [facility] [address] [place] [address] [place] [address] Ultrasound Report Signed Patient: Maria Ines Kam MR#: [id number] 983 : 1940 Acct:[id number] Age/Sex: 84 / F ADM Date: 11/06/24 Loc: [facility] Attending Dr: Cyndy CHO Ordering Physician: Cyndy Washington Date of Service: 11/06/24 Procedure(s): US renal BI Accession Number(s): [id number] cc: Vito Joel MD; Cyndy Washington CLINICAL [...] 11/06/24 1310 DD/ 1309 TD/TT: 11/06/24 1309 Supervisor Data Processing: [facility] Primary [address] [place] [address] Ultrasound Report Signed Patient: Armin Kam MR#: [id number] 983 : 1940 Acct:[id number] Age/Sex: 84 / F ADM Date: 11/06/24 Loc: [facility] Attending Dr: Cyndy catalan [facility] Ordering Physician: Cyndy Washington Date of Service: 11/06/24 Procedure(s): US summer Alfaro Accession Number(s): [id number] cc: Vito Joel MD; Cyndy Washington [facility] CLINICAL HISTORY: R3 1.29 - Other microscopic [...] 11/06/24 1310 DD/ 1309 TD/TT: 11/06/24 1309 Supervisor Data Processing: Silke Huffman Reviewed date:02/09/2025 04:39:48 PM Interpretation: Performing Lab:[facility], [address] [place] [phone] Notes/Report: Silke Huffman See Note Specimen held untested for 24 hours; Call to request Chemistry testing. FL guidance in OR Reviewed date:06/07/2025 12:47:19 PM Interpretation: Performing Lab: Notes/Report: [address] [address] Fluoroscopy Report Signed Patient: Maria Ines Kam MR#: [id number] 983 : 1940 Acct:[id number] Age/Sex: 85 / F ADM Date: 06/04/25 Loc: HO.[facility] Attending Dr: Mariah Pickard MD Ordering Physician: Mariah Pickard MD Date of Service: 06/04/25 Procedure(s): FL guidance in OR Accession Number(s): [id number] cc: Vito oJel MD; Mariah Pickard MD Reason for Exam: ORIF EXAMINATION: XR FLUOROSCOPY WITH IMAGES CLINICAL INFORMATION: ORIF COMPARISON: X-ray hand 05/28/2025 TECHNIQUE: Fluoroscopy time: 55 seconds DAP: 1.7 mGycm2 Images: 4 FINDINGS: Fluoroscopy provided in the operating room. There is internal fixation of the second metacarpal fracture. FL/FL guidance in OR IMPRESSION: Fluoroscopy provided in the operating room. See surgical report for details. Electronically signed by: Chemo Grady MD 06/07/2025 07:44 AM EST RP Dictated By: Chemo Grady MD Signed By: <Electronically signed by Chemo Grady MD in OV> 06/07/25 0744 DD/ 1210 TD/TT: 06/04/25 1314 Supervisor Data Processing: [place] [address] Fluoroscopy Report Signed Patient: Armin Kam MR#: [id number] 983 : 1940 Acct:[id number] Age/Sex: 85 / F ADM Date: 06/04/25 Loc: [facility] Attending Dr: Shanthi Pickard MD Ordering Physician: Mariah Pickard MD Date of Service: 06/04/25 Procedure(s): FL guidance in OR Accession Number(s): [id number] cc: Vito Joel MD; Mariah Pickard MD Reason for Exam: ORIF EXAMINATION: XR FLUOROSCOPY WITH IMAGES CLINICAL INFORMATION: ORIF COMPARISON: X-ray hand 05/28/2025 TECHNIQUE: Fluoroscopy time: 55 seconds DAP: 1.7 mGycm2 Images: 4 FINDINGS: Fluoroscopy provided in the operating room. There is internal fixation of the second metaca rpal fracture. F L/FL guidance in OR IMPRESSION: Fluoroscopy provided in the operating room. See surgical report for details. Electronically cristiane d by: Chemo Grady MD 06/07/2025 07:44 AM EST RP Dictated By: Chemo Grady MD Signed By: <Electronically signed by Chemo Grady MD in OV> 06/07/25 0744 DD/ 1210 TD/TT: 06/04/25 1314 Supervisor Data Processing: JESSIE XR hand RT min 3V (Not yet r eviewed by provider) Interpretation: Performing Lab: Notes/Report: [facility] [address] [place] [address] XRay Report Signed Patient: Maria Ines Kam MR#: [id number] : 1940 Acct:[id number] Age/Sex: 85 / F ADM Date: 06/20/25 Loc: [facility] Attending Dr: Mariah Pickard MD Ordering Physician: Reynaldo Freire Date of Service: 06/20/25 Procedure(s): XR hand RT min 3V Accession Number(s): [id number] cc: Reynaldo Freire; Vito Joel MD Reason for Exam: M79.641 - Pain in right hand EXAMINATION: XR HAND, RIGHT CLINICAL INFORMATION: M79.641 - Pain in right hand COMPARISON: Previous x-rays, most recent fluoroscopy June 04, 2025 and x-rays May 2025 TECHNIQUE: PA, lateral, and oblique views of the right hand. FINDINGS: There is a K wire transfixing the comminuted displaced fracture of the base of the second metacarpal bone. This appears unchanged from fluoroscopy June 04, 2025. Fracture lines still seen. There is some surrounding bony callus formation. 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 There is atherosclerotic disease. XR/XR hand RT min 3V IMPRESSION: ORIF of right second metacarpal fracture. Electronically signed by: Yuli Durham MD 06/20/2025 11:25 AM EST Dictated By: Yuli Durham MD Signed By: <Electronically signed by Yuli Durham MD in OV> 06/20/25 1125 DD/ 1104 TD/TT: 06/20/25 1108 Supervisor Data Processing: TWIN [facility] [address] [place] [address] XRay Report Signed Patient: Armin Kam MR#: [id number] : 1940 Acct:[id number] Age/Sex: 85 / F ADM Date: 06/20/25 Loc: [facility] Attending Dr: Shanthi Pickard MD Ordering Physician: Reynaldo Freire Date of Service: 06/20/25 Procedure(s): XR chand d RT min 3V Accession Number(s): [id number] cc: Reynaldo Freire ; Vito Joel MD Reason for Exam: M79 .641 - Pain in right hand EXAMINATION: XR HAND, RIGHT CLINICAL INFORMATION: M79.641 - Pain in ri ght hand COMPARISON: Previous x-rays, mos t recent fluoroscopy June 04, 2025 and x-rays May 2025 TECHNIQUE: PA, lateral, and obl ique views of the right hand. FINDINGS: There is a K wire transfixing the comminuted displaced fracture of the base of the second metacarpal bone. This appears unchanged from fluoroscopy June 04, 2025. Fracture lines still seen. There is some surrounding bony papo rajesh formation. There is arthritis at the IP joints, first MCP and ASSISTED nicky ints with joint space narrowing and osteophyte formation. There is atherosclerotic disease. X R/XR hand RT min 3V IMPRESSION: ORIF of right second metacarpal fracture. Electronically cristiane d by: Yuli Durham MD 06/20/2025 11:25 AM EST Dictated By: Yuli Durham MD Signed By: <Electronically signed by Yuli Durham MD in OV> 06/20/25 1125 DD/ 1104 TD/TT: 06/20/25 1108 Supervisor Data Processing: TWIN Reason For Referral No Information Medications Medication SIG (Take, Route, Frequency, Duration) Notes Start Date End Date Status Nystatin-Triamcinolone 967132-1.1 UNIT/GM 1 application to affected area Externally [...] MG TAKE 1 TABLET TWICE A DAY for 90 Active Aspir-81 81 MG 1 tablet Orally [...] was given the vaccine at [facility] in [place]. 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 (597960480) Diabetic autonomic neuropathy associated with type 2 diabetes mellitus (E11.43) Active confirmed Problem 126159677 History of endom etrial cancer (Z85.42) Active confirmed Problem 284934928 Pure hypercholesterolemia (E78.00) Active confirmed Problem 200453109 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) Active confirmed Problem Intermittent spinal claudication (665033299) Intermittent spinal claudication (G95.19) Active confirmed Vital Signs Blood pressure diastolic 60 mm Hg 02/16/2025 Height 65.25 in 02/16/2025 Blood pressure systolic 132 mm Hg 02/16/2025 Weight 175 lbs 02/16/2025 BMI 28.9 kg/m2 02/16/2025 Encounters Encounter Location Date Provider Diagnosis Vito Joel MD [address] [place] [address] [id number] 07/06/2024 Vito Joel Blood tests for rout ine general physical examination Z00.00 ; Essential hypertension I10 ; Prediabetes R73.09 and Pure hypercholesterolemia E78.00 [address] MD [address] [place] [address] [id number] 02/09/2025 Vito Joel Prediabetes R73.09 a nd Pure hypercholesterolemia E78.00 Vito Joel MD [address] [place] [address] [id number] 07/13/2024 Vito Joel Essential hypertensi on I10 ; Annual physical exam Z00.00 ; Pure hypercholesterolemia E78.00 ; 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 ; Diabetic autonomic neuropathy associated with type 2 diabetes mellitus E11.43 ; Colon cancer screening Z12.11 and Depression screening Z13.31 Vito Joel MD [address] [place] [address] [id number] 10/30/2024 Vito Joel Small bowel obstruct ion K56.609 and Essential hypertension I10 Vito Joel MD [address] [place] [address] [id number] 11/28/2024 Vito Joel Essential hypertensi on I10 and Leg edema R60.0 Vito Joel MD [address] [place] [address] [id number] 12/28/2024 Vito Joel Prediabetes R73.09 a nd Edema leg R60.0 Vito Joel MD [address] [place] [address] [id number] 02/16/2025 Vito Joel Essential hypertensi on I10 ; Prediabetes R73.09 and Pure hypercholesterolemia E78.00 Vito Joel MD [address] [place] [address] [id number] 07/11/2024 Vito Joel MD [address] [place] [address] [id number] 09/07/2024 Vito Joel MD [address] [place] [address] [id number] 09/20/2024 Vito Joel MD [address] [place] [address] [id number] 10/06/2024 Vito Joel MD [address] [place] [address] [id number] 10/19/2024 Vito Joel MD [address] [place] [address] [id number] 11/10/2024 Vito Joel Essential hypertensi on I10 Vito Joel MD [address] [place] [address] [id number] 02/26/2025 Vito Joel Edema leg R60.0 Assessments [...] I10) well controlled, will continue current regiment 11/10/2024 Essential hypertensi on (ICD-10 - I10) [...] Electrocardiogram (EKG) 11/25/2012 CARDIOVASCULAR STRESS TEST 11/12/2022 XR hand RT min 3V 06/20/2025 Next Appt Details Provider Name:Vito Johnson ier, 07/10/2025 08:00:00 AM, [address] [place] [address], [address], [phone], Provider Name:Vito Johnson ier, 07/17/2025 01:00:00 PM, [address] [place] [address], [place] [address], [place], [place], [phone], Insurance Providers Payer Name Payer Address Payer Phone Subscriber Number Group Number Insured Name Patient Relationship to Insured Coverage Start Date Coverage End Date [facility] Manuel [id number] [phone] [id number] Maria Ines Kam Self - patient is the insured Medical (General) History Medical History History ICD Code hysterectomy (2002) and oopherectomy endometrial cancer - 200211/24/2012 - refuses Colonsco py 2013; REFUSED COLONOSCOPY - DON'T ASK AGAIN 08/17/16 Prediabetes R73.09 Prediabetes undefined Surgical History Surgery Date(Month/Year) left hip replacement 07/2010 right hip replacement 07/1994
--- OUTSIDE RECORDS SUMMARY | 2025-06-20 14:16 | XMS_ITS | Patient Health Record ---
Author Organization [facility] Address [address] [place] [address] Care Team Providers Care Nylon Mender Name Role Phone Vito Joel MD Primary Care Provider Irais Mcghee Unavailable [phone] Allergies No Known Allergies Reason For Referral [...] W/U Status Risk Notes Problem Tinea unguium (622302019) Tinea unguium (B35.1) Active confirmed Vital Signs Blood pressure diastolic 72 mm Hg 05/07/2025 Height 5 ft 5 in in 05/07/2025 Blood pressure systolic 120 mm Hg 05/07/2025 Weight 175 lbs 05/07/2025 BMI 29.12 kg/m2 05/07/2025 Procedures Procedure Date Ordered Date Performed Result Body Sit e 98469-UWKECWC NAIL, 6 OR MORE 07/13/2024 N/A 23986 I&D ABSCESS- SIMPLE,SINGLE 07/13/2024 N/A 10872-[id number] NAIL, 6 OR MORE 11/06/2024 N/A 36460-[id number] NAIL, 6 OR MORE 05/07/2025 N/A Encounters Encounter Location Date Provider Diagnosis [address] [phone] 07/13/2024 Irais Black Pain in right foot [...] M79.675 and Abscess of toe, left L02.[address] [address] 11/06/2024 Irais Black Tinea unguium B35.1 ; Pain in right toe(s) M79.674 and Pain in left toe(s) M79.[address] [address] 05/07/2025 Irais Black Tinea unguium B35.1 ; Pain in right toe(s) M79.674 and Pain in left toe(s) M79.[address] [facility] [place] [address] 03/06/2025 [facility] [address] [place] [address] 05/07/2025 Irais Prieto [facility] Encounter Date Diagnosis (ICD Code) Assessment Notes [...] Treatment Pending Test Test Name Order Date 15930-[id number] NAIL, 6 OR MORE 11/08/2023 84786-[id number] NAIL, 6 OR MORE 03/13/2024 04904-DQITLQZ NAIL, 6 OR MORE 07/13/2024 32894-QLZDFPI NAIL, 6 OR MORE 11/06/2024 58872-[id number] NAIL, 6 OR MORE 05/07/2025 08846 I&D ABSCESS- SIMPLE,SINGLE 025 Next Appt Details Provider Name:Irais Prieto , 09/10/2025 10:30:00 AM, [address] [place], [address], Insurance Providers Payer Name Payer Address Payer Phone Subscriber Number Group Number Insured Name Patient Relationship to Insured Coverage Start Date Coverage End Date [facility] [address] [place] [address] [id number] Maria Ines Kam Self - patient [...] Date(Month/Year) historectomy left and right hip replacement [id number] 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
== END 2025-06-20 13:03 | disposition home or self-care (01) ==
LOC: HO.HOS 10:56
PROVIDERS: PCP Internal Medicine; Visit Provider Orthopaedic Surgery
DX: S62.310A Displaced fracture of base of second metacarpal bone, right hand, initial encounter for closed fracture (principal); S62.312A Displaced fracture of base of third metacarpal bone, right hand, initial encounter for closed fracture; M18.11 Unilateral primary osteoarthritis of first carpometacarpal joint, right hand
CPT/HCPCS: 99024

== ENCOUNTER 2025-06-20 10:55 | Outpatient (REF) | payer OTHER, SELFPAY ==
--- NOTE | ~2025-06-20 | XR_ITS ---
EXAMINATION: XR HAND, RIGHT CLINICAL INFORMATION: M79.641 - Pain in right hand COMPARISON: Previous x-rays, most recent fluoroscopy June 04, 2025 and x-rays May 2025 TECHNIQUE: PA, lateral, and oblique views of the right hand. FINDINGS: There is a K wire transfixing the comminuted displaced fracture of the base of the second metacarpal bone. This appears unchanged from fluoroscopy June 04, 2025. Fracture lines still seen. There is some surrounding bony callus formation. 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 There is atherosclerotic disease. XR/XR hand RT min 3V IMPRESSION: ORIF of right second metacarpal fracture. Electronically signed by: Yuli Durham MD 06/20/2025 11:25 AM CSOTT
== END 2025-06-20 10:56 | disposition home or self-care (01) ==
LOC: HO.HOSX 10:55
PROVIDERS: PCP Internal Medicine; Visit Provider Orthopaedic Surgery
DX: S62.310D Displaced fracture of base of second metacarpal bone, right hand, subsequent encounter for fracture with routine healing (principal); S62.312D Displaced fracture of base of third metacarpal bone, right hand, subsequent encounter for fracture with routine healing; M18.11 Unilateral primary osteoarthritis of first carpometacarpal joint, right hand; X58.XXXD Exposure to other specified factors, subsequent encounter
CPT/HCPCS: 73130

== ENCOUNTER → 2025-06-20 11:04 | Outpatient (BNV) | payer OTHER, SELFPAY | PROVIDERS: PCP Internal Medicine; Visit Provider Radiology Diagnostic Radiology | DX: S62.300A Unspecified fracture of second metacarpal bone, right hand, initial encounter for closed fracture (principal) | CPT/HCPCS: 73130 ==